=== PATIENT | female | born 1995 | race Caucasian/White ===

== ENCOUNTER 2023-12-13 12:27 | Outpatient (OUT) | payer OTHER, SELFPAY ==
--- NOTE | 2023-12-13 12:33 | US_ITS ---
[address] [address] Patient Name: YAKELIN MELGOZA MRN: [id number] date: 1995 Sex: F Assigned Patient Location: [facility] Current Patient Location: [facility] Accession/Order Number: [id number] Exam Date: 12/13/2023 12:33 Report Date: 12/13/2023 13:43 At the request of: MONICO WORRELL Procedure: US OB transvaginal EXAMINATION: US OB transvaginal HISTORY: MISSED MENSES COMPARISON: No relevant comparison available. FINDINGS: Transvaginal images Hill intrauterine gestation Gestational sac: 5.25 cm, 11 weeks 1 day CRL: 5.72 cm, 12 weeks 2 days Yolk sac: 4.3 mm Heart rate: 150 beats minute Cervix: Closed, 4.4 cm The uterus is normal, anteverted, anteflexed The right ovary is normal measuring 2.0 x 1.1 x 1.5 cm Left ovary is normal measuring 3.2 x 2.3 x 2.4 cm Clinical age: Unknown Ultrasound age: 12 weeks 2 days Ultrasound VANGIE: 06/24/2024 US/US OB transvaginal IMPRESSION: Viable hill intrauterine gestation measuring 12 weeks 2 days Electronically authenticated by: FRANKIE HENDRICKSON Date: 12/13/2023 13:43
== END 2023-12-13 12:28 | disposition home or self-care (01) ==
LOC: NOMS 12:28
PROVIDERS: Visit Provider Obstetrics & Gynecology
DX: Z34.91 Encounter for supervision of normal pregnancy, unspecified, first trimester (principal); N92.6 Irregular menstruation, unspecified; Z3A.12 12 weeks gestation of pregnancy
CPT/HCPCS: 76817

== ENCOUNTER 2023-12-26 08:46 | Outpatient (OUT) | payer OTHER, SELFPAY ==
[2023-12-26 09:23] LABS: Basophils Percent Auto 0.4 % (0.2-2.0); Eosinophils Absolute Auto 0.1 10^3/uL (0.0-0.7); Eosinophils Percent Auto 0.9 % (0.9-7.0); Hematocrit 33.5 % (36.0-48.0); Hemoglobin 11.6 g/dL (12.0-16.0); Immature Granulocytes Abs Auto 0.03 10^3/uL (0.00-0.03); Immature Granulocytes Pct Auto 0.4 % (0.0-0.5); Lymphocytes Absolute Auto 1.2 10^3/uL (1.2-3.8); Lymphocytes Percent Auto 14.6 % (20.5-60.0); Mean Corpuscular HGB Conc 34.6 g/dL (29.9-35.2); Mean Corpuscular Hemoglobin 30.9 pg (26.7-34.0); Mean Corpuscular Volume 89.3 fL (81.0-99.0); Mean Platelet Volume 10.5 fL (9.5-13.5); Monocytes Absolute Auto 0.5 10^3/uL (0.3-0.8); Monocytes Percent Auto 6.5 % (1.7-12.0); Neutrophils Absolute Auto 6.3 10^3/uL (1.4-6.5); Neutrophils Percent Auto 77.2 % (43.0-75.0); Platelet Count 197 10^3/uL (150-450); Red Blood Count 3.75 10^6/uL (4.20-5.40); Red Cell Distribution Width 13.4 % (11.0-15.0); White Blood Count 8.2 10^3/uL (4.0-11.0)
[2023-12-26 09:41] LABS: Estimated Average Glucose 82 mg/dL; Glycohemoglobin A1C 4.5 % (4.5-6.2)
[2023-12-27 06:09] LABS: HBsAg Screen Negative (Negative); HCV Ab Non Reactive (Non Reactive); HIV Ab/p24 Ag Screen Non Reactive (Non Reactive)
[2023-12-27 07:09] LABS: Rubella Antibodies, IgG <0.90 index (Immune >0.99)
[2023-12-27 13:08] LABS: Rapid Plasma Reagin, Quant Non Reactive titer (NonRea<1:1)
== END 2023-12-26 08:47 | disposition home or self-care (01) ==
LOC: LAB 08:49
PROVIDERS: Visit Provider Obstetrics & Gynecology
DX: Z34.90 Encounter for supervision of normal pregnancy, unspecified, unspecified trimester (principal); N92.6 Irregular menstruation, unspecified
CPT/HCPCS: 36415; 83036; 85025; 86592; 86762; 86803; 86850; 86900; 86901; 87086; 87340; 87389

== ENCOUNTER 2024-01-08 11:09 | Outpatient (OUT) | payer OTHER, SELFPAY ==
[2024-01-11 01:08] LABS: AFP Value 51.2 ng/mL (.); Gestat. Age Based On Ultrasound (.); Insulin Dep Diabetes No (.); Maternal Age At EDD 28.5 yr (.); OSBR Risk 1 IN 1944 (.); Results Report (.)
== END 2024-01-08 11:10 | disposition home or self-care (01) ==
LOC: LAB 11:11
PROVIDERS: Visit Provider Obstetrics & Gynecology
DX: Z34.92 Encounter for supervision of normal pregnancy, unspecified, second trimester (principal); Z36.1 Encounter for antenatal screening for raised alphafetoprotein level
CPT/HCPCS: 36415; 82105

== ENCOUNTER 2024-01-08 21:01 | Outpatient (REF) | payer OTHER, SELFPAY | END 2024-01-08 21:02 | disposition home or self-care (01) | LOC: LAB 21:01 | PROVIDERS: Visit Provider Obstetrics & Gynecology | DX: Z34.92 Encounter for supervision of normal pregnancy, unspecified, second trimester (principal); Z36.1 Encounter for antenatal screening for raised alphafetoprotein level; Z01.419 Encounter for gynecological examination (general) (routine) without abnormal findings | CPT/HCPCS: 36415; 82105; G0145 ==

== ENCOUNTER 2024-01-22 09:45 | Outpatient (OUT) | payer OTHER, SELFPAY ==
--- NOTE | 2024-01-22 09:48 | US_ITS ---
[address] [address] Patient Name: YAKELIN MELGOZA MRN: [id number] date: 1995 Sex: F Assigned Patient Location: US Current Patient Location: US Accession/Order Number: [id number] Exam Date: 01/22/2024 09:50 Report Date: 01/22/2024 10:58 At the request of: MONICO WORRELL Procedure: US OB cervical length EXAMINATION: US OB anatomy, US OB cervical length HISTORY: Screening For Anatomic Survey Z36.89 COMPARISON: Ultrasound OB transvaginal 12/13/2023 TECHNIQUE: Transabdominal sonographic examination was performed for obstetrical and evaluation. FINDINGS: Number: 1 Heart Rate: 142.1 bpm H.B. /min Amniotic Fluid Volume: Surgically normal Placental Location: ANTERIOR, grade 1, with lower margin 3.7 cm from os. 2.7 x 2.2 x 1.0 cm venous chandra, likely incidental. Cervix Length: 5.8 cm, closed. ANATOMY: Normal Structures -cerebellum, choroid plexus, cisterna magna, lateral cerebral ventricles, orbits, midline falx, hard palate, four-chamber heart, RVOT, LVOT, stomach, kidneys, bladder, umbilical cord insertion into abdomen, three-vessel cord, cervical spine, thoracic spine, lumbar spine, sacral spine, right upper extremity, left upper extremity, right lower extremity, left lower extremity. SUBOPTIMALLY SEEN: None ABNORMALITIES: None BIOMETRY: BPD: 3.7 cm 17 weeks 3 days ; 3% HC: 14.5 cm 17 weeks 5 days; < 3% AC: 12.5 cm 18 weeks 1 days; 19% FL: 2.6 cm 17 weeks 6 days ; 11% EFW:218.1 grams; 6% FL/AC: 20.8 FL/BPD: 69.7 HC/AC: 1.2 GESTATIONAL AGE: Age by EDC: 19 weeks 0 days VANGIE by EDC: 06/17/2024 Age by current US: 17 weeks 6 days VANGIE by current US: 06/25/2024 US/US OB cervical length IMPRESSION: 1. Single live intrauterine with growth detailed above. 2. Estimated weight is 6th percentile. Head circumference is < 3rd percentile. Electronically authenticated by: LEISA HERNANDEZ Date: 01/22/2024 10:58
--- NOTE | 2024-01-22 09:48 | US_ITS ---
[address] [address] Patient Name: YAKELIN MELGOZA MRN: [id number] date: 1995 Sex: F Assigned Patient Location: US Current Patient Location: US Accession/Order Number: [id number] Exam Date: 01/22/2024 09:50 Report Date: 01/22/2024 10:58 At the request of: MONICO WORRELL Procedure: US OB anatomy EXAMINATION: US OB anatomy, US OB cervical length HISTORY: Screening For Anatomic Survey Z36.89 COMPARISON: Ultrasound OB transvaginal 12/13/2023 TECHNIQUE: Transabdominal sonographic examination was performed for obstetrical and evaluation. FINDINGS: Number: 1 Heart Rate: 142.1 bpm H.B. /min Amniotic Fluid Volume: Surgically normal Placental Location: ANTERIOR, grade 1, with lower margin 3.7 cm from os. 2.7 x 2.2 x 1.0 cm venous chandra, likely incidental. Cervix Length: 5.8 cm, closed. ANATOMY: Normal Structures -cerebellum, choroid plexus, cisterna magna, lateral cerebral ventricles, orbits, midline falx, hard palate, four-chamber heart, RVOT, LVOT, stomach, kidneys, bladder, umbilical cord insertion into abdomen, three-vessel cord, cervical spine, thoracic spine, lumbar spine, sacral spine, right upper extremity, left upper extremity, right lower extremity, left lower extremity. SUBOPTIMALLY SEEN: None ABNORMALITIES: None BIOMETRY: BPD: 3.7 cm 17 weeks 3 days ; 3% HC: 14.5 cm 17 weeks 5 days; < 3% AC: 12.5 cm 18 weeks 1 days; 19% FL: 2.6 cm 17 weeks 6 days ; 11% EFW:218.1 grams; 6% FL/AC: 20.8 FL/BPD: 69.7 HC/AC: 1.2 GESTATIONAL AGE: Age by EDC: 19 weeks 0 days VANGIE by EDC: 06/17/2024 Age by current US: 17 weeks 6 days VANGIE by current US: 06/25/2024 US/US OB anatomy IMPRESSION: 1. Single live intrauterine with growth detailed above. 2. Estimated weight is 6th percentile. Head circumference is < 3rd percentile. Electronically authenticated by: LEISA HERNANDEZ Date: 01/22/2024 10:58
== END 2024-01-22 09:46 | disposition home or self-care (01) ==
LOC: US 09:45
PROVIDERS: Visit Provider Obstetrics & Gynecology
DX: Z36.89 Encounter for other specified antenatal screening (principal); Z3A.19 19 weeks gestation of pregnancy
CPT/HCPCS: 76805; 76817

== ENCOUNTER 2024-03-26 09:16 | Outpatient (OUT) | payer OTHER, SELFPAY ==
[2024-03-26 10:35] LABS: Basophils Percent Auto 0.3 % (0.2-2.0); Eosinophils Absolute Auto 0.1 10^3/uL (0.0-0.7); Eosinophils Percent Auto 0.9 % (0.9-7.0); Hemoglobin 10.1 g/dL (12.0-16.0); Immature Granulocytes Abs Auto 0.06 10^3/uL (0.00-0.03); Immature Granulocytes Pct Auto 0.6 % (0.0-0.5); Mean Corpuscular HGB Conc 33.7 g/dL (29.9-35.2); Mean Platelet Volume 10.3 fL (9.5-13.5); Monocytes Absolute Auto 0.6 10^3/uL (0.3-0.8); Monocytes Percent Auto 5.9 % (1.7-12.0); Neutrophils Absolute Auto 8.3 10^3/uL (1.4-6.5); Neutrophils Percent Auto 82.3 % (43.0-75.0); Platelet Count 168 10^3/uL (150-450); Red Blood Count 3.37 10^6/uL (4.20-5.40); Red Cell Distribution Width 12.8 % (11.0-15.0); White Blood Count 10.1 10^3/uL (4.0-11.0)
[2024-03-26 11:01] LABS: Glucose 1 Hour 122 mg/dL (<130)
== END 2024-03-26 09:17 | disposition home or self-care (01) ==
LOC: LAB 09:17
PROVIDERS: Visit Provider Obstetrics & Gynecology
DX: Z13.1 Encounter for screening for diabetes mellitus (principal)
CPT/HCPCS: 36415; 82950; 85025

== ENCOUNTER 2024-04-29 11:01 | Outpatient (OUT) | payer OTHER, SELFPAY ==
--- NOTE | 2024-04-29 11:03 | US_ITS ---
[address] [address] Patient Name: YAKELIN MELGOZA MRN: [id number] date: 1995 Sex: F Assigned Patient Location: [facility] Current Patient Location: [facility] Accession/Order Number: [id number] Exam Date: 04/29/2024 11:30 Report Date: 04/29/2024 12:45 At the request of: ANGELIC BALLARD Procedure: US OB growth EXAMINATION: US OB growth HISTORY: SIZE INCONSISTENT WITH DATES COMPARISON: No relevant comparison available. FINDINGS: Heart Rate: 135 bpm Amniotic Fluid Volume: 18.3 cm. Largest fluid pocket 6.5 cm Number: 1 Position: Cephalic presentation, longitudinal lie BIOMETRY: BPD: 8.28 cm; 33 weeks 2 days; 78.70 % HC: 30.75 cm; 34 weeks 2 days; 74.50 % AC: 29.08 cm; 33 weeks 1 day; 79 % FL: 6.40 cm; 33 weeks 0 days; 66.50 % EFW: 2159.86 g; 78.10 %, 4 lbs. 12 oz. FL/AC: 22.01 FL/BPD: 77.29 HC/AC: 1.06 GESTATIONAL AGE: Age by EDC: 32 weeks 0 days VANGIE by EDC: 2024-06-24 Age by US: 33 weeks 3 days VANGIE by US: 2024-06-14 US/US OB growth IMPRESSION: Normal interval growth Electronically authenticated by: FRANKIE HENDRICKSON Date: 04/29/2024 12:45
== END 2024-04-29 11:02 | disposition home or self-care (01) ==
LOC: NOMS 11:02
PROVIDERS: Visit Provider Physician Assistant
DX: O26.843 Uterine size-date discrepancy, third trimester (principal); Z3A.33 33 weeks gestation of pregnancy
CPT/HCPCS: 76816

== ENCOUNTER 2024-05-27 19:28 | Outpatient (REF) | payer OTHER, SELFPAY ==
--- OUTSIDE RECORDS SUMMARY | 2024-05-27 19:33 | XMS_ITS | CCD ---
Author Organization [facility] Care Team Providers Care Gluer Machine Setup Operator Name Role Phone Lobo Upton Unavailable UnavailRAMONA Singleton Admitting Unavailable RAMONA JIMÉNEZ Attending Unavailable RAMONA JIMÉNEZ Consulting Unavailable RAMONA JIMÉNEZ Admitting Unavailable RAMONA JIMÉNEZ Attending Unavailable REQUEST, NONE LISTED Primary Care Unavailable FRANKIE HENDRICKSON V Consulting Unavailable RAMONA JIMÉNEZ Consulting Unavailable RAMONA JIMÉNEZ Admitting Unavailable RAMONA JIMÉNEZ Attending Unavailable RAMONA JIMÉNEZ Consulting Unavailable RAMONA JIMÉNEZ Admitting Unavailable RAMONA JIMÉNEZ Attending Unavailable RAMONA JIMÉNEZ Consulting Unavailable RAMONA JIMÉNEZ Admitting Unavailable RAMONA JIMÉNEZ Attending Unavailable RAMONA JIMÉNEZ Consulting Unavailable RAMONA JIMÉNEZ Admitting Unavailable RAMONA JIMÉNEZ Attending Unavailable RAMONA JIMÉNEZ Primary Care Unavailable RAMONA JIMÉNEZ Consulting Unavailable LINDA CAICEDO Consulting Unavailable RAMONA JIMÉNEZ Admitting Unavailable RAMONA JIMÉNEZ Attending Unavailable RAMONA JIMÉNEZ Consulting Unavailable RAMONA JIMÉNEZ Admitting Unavailable RAMONA JIMÉNEZ Attending Unavailable RAMONA JIMÉNEZ Consulting Unavailable RAMONA JIMÉNEZ Admitting Unavailable RAMONA JIMÉNEZ Attending Unavailable RAMONA JIMÉNEZ Consulting Unavailable RAMONA JIMÉNEZ Admitting Unavailable RAMONA JIMÉNEZ Attending Unavailable RAMONA JIMÉNEZ Consulting Unavailable RAMONA JIMÉNEZ Admitting Unavailable RAMONA JIMÉNEZ Attending Unavailable RAMONA JIMÉNEZ Primary Care Unavailable RAMONA JIMÉNEZ Consulting Unavailable ROBINSON MICHELLE Consulting Unavailable RAMONA JIMÉNEZ Procedure Practitioner Unavailab le Cleemput EXTENSION SERVICE SPECIALIST IN CHARGE-TRUSS PULLER HELPER, Sarita Emmanuel Primary Care Jayy thorpe Cleemput EXTENSION SERVICE SPECIALIST IN CHARGE-TRUSS PULLER HELPER, Sarita Emmanuel Attending Jayy thorpe Cleemput EXTENSION SERVICE SPECIALIST IN CHARGE-TRUSS PULLER HELPER, Sarita Emmanuel Attending Jayy mariole Cleemput EXTENSION SERVICE SPECIALIST IN CHARGE-TRUSS PULLER HELPER, Sarita Emmanuel Primary Care Jayy thorpe Cleemput EXTENSION SERVICE SPECIALIST IN CHARGE-TRUSS PULLER HELPER, Sarita Emmanuel Referring Jayy Roach MD, Demetrice Portillo Attending Unavailable Cleemput EXTENSION SERVICE SPECIALIST IN CHARGE-TRUSS PULLER HELPER, Sarita Emmanuel Primary Care Unavai lable Cleemput EXTENSION SERVICE SPECIALIST IN CHARGE-TRUSS PULLER HELPER, Sarita Emmanuel Primary Care Unavai lable Cleemput EXTENSION SERVICE SPECIALIST IN CHARGE-TRUSS PULLER HELPER, Sarita Emmanuel Attending Unavai lable Cleemput EXTENSION SERVICE SPECIALIST IN CHARGE - PARASITOLOGIST, Sarita Costello Primary Care Provider SARITA BEDOYA Primary Care Unavailable CLEROBERT, SARITA Costello Referring Unavailable CLEEMPJOAQUINA, SARITA Costello Primary Care Unavailable GRISELDA CASTANON Attending Unavailable Cleemput EXTENSION SERVICE SPECIALIST IN CHARGE-TRUSS PULLER HELPER, Sarita Costello Primary Care Provider AURELIANO, SARITA Costello Referring Unavailable CLEROBERT, SARITA Costello Primary Care Unavailable GM, MONICO Attending Unavailable ELIO, SARITA Attending Unavailable GM, MONICO Attending Unavailable GM, MONICO Attending Unavailable ELIO, SARITA Attending Unavailable GM, MONICO Attending Unavailable ELIO, SARITA Attending Unavailable Allergies Allergy Classification Reported Allergen(s) Allergy Type Date of Onset Reaction(s) Facility (1 source) Adhesive agent Drug allergy (disorder) [facility] Repository (2 sources) Latex; Translations: [LATEX] Drug allergy (disorder) 3 [facility] Repository (1 source) morphine Drug Allergy [facility] Repository (1 source) Latex Drug allergy (disorder) 0 [facility] Repository (2 sources) Latex Propensity to adverse reactions to drug 3 [facility] (2 sources) Hydrocortisone; Translations: [HYDROCORTISONE] Drug Allergy 3 [facility] Medications Current Medications Medication Drug Class(es) Dates Sig (Normalized) Sig (Original) multivit-min/ferrous fumarate (MULTI VITAMIN ORAL) (1 source) take 1 tablet by mouth once daily multivit-min/ferrous fumarate (MULTI VITAMIN ORAL) Take 1 tablet by mouth daily. 0 Active ondansetron 4 mg disintegrating oral tablet (1 source) Serotonin-3 Receptor Antagonist Start: 04-16-2023 take 1 tablet by mouth three times daily as needed for nausea ondansetron (ZOFRAN-ODT) 4 MG disintegrating tablet Take 1 tablet by mouth 3 times daily as needed for Nausea or Vomiting 6 tablet 0 04/16/2023 Active vits62/FA/om3/dha/ep a ( GUMMY ORAL) (1 source) vits62/FA/om3/dha/ep a ( GUMMY ORAL) Take by mouth. 0 Active Completed/Discontinued Medications Medication Drug Class(es) Dates Sig (Normalized) Sig (Original) levonorgestrel 0.723136 mg/hr intrauterine system (1 source) Progestin, Progestin-containi ng Intrauterine Device End: 09-25-2023 levonorgestreL (MIRENA) 20 mcg/24 hours (8 yrs) 52 mg IUD 1 each by intrauterine route once. 0 09/25/2023 Discontinued (Therapy completed) Problems Active Problems Problem Classification Problem Date Documented Da te Episodic/Chronic Contraceptive and procreative management (3 sources) Patient encounter status; Translations: [Encounter for removal of intrauterine contraceptive device] Onset: 09-25-2023 09-25-2023 Episodic Immunizations and screening for infectious disease (4 sources) Encounter for screening for other viral diseases; Translations: [ENC SCREENING FOR OTH VIRAL DZ] Onset: 05-18-2020 Episodic Menstrual disorders (4 sources) Secondary amenorrhea; Translations: [SECONDARY AMENORRHEA] Onset: 11-21-2019 Chronic Noninfectious gastroenteritis (1 source) Noninfective gastroenteritis and colitis, unspecified; Translations: [Noninfective gastroenteritis and colitis, unspecified] Onset: 04-16-2023 Episodic Other complications of ; puerperium affecting management of mother (3 sources) Obesity complicating childbirth; Translations: [OBESITY COMPLICATING CHILDBIRTH] Onset: 05-25-2020 Chronic Other gastrointestinal disorders (2 sources) Diarrhea, unspecified; Translations: [Diarrhea, unspecified] Onset: 05-21-2023 Episodic Other nutritional; endocrine; and metabolic disorders (1 source) Obesity, unspecified; Translations: [OBESITY UNSPECIFIED] Onset: 06-02-2020 Chronic Other and delivery including normal (14 sources) Encounter for supervision of normal , unspecified, third trimester; Translations: [Encounter for supervision of normal , unspecified, unspecified trimester] Onset: 11-07-2019 Episodic Residual codes; unclassified (1 source) 39 weeks gestation of ; Translations: [39 WEEKS GESTATION OF ] Onset: 06-02-2020 Residual codes; unclassified (1 source) 36 weeks gestation of ; Translations: [36 WEEKS GESTATION OF ] Onset: 05-09-2020 Screening and history of mental health and substance abuse codes (1 source) Personal history of nicotine dependence; Translations: [PERSONAL HISTORY OF NICOTINE DEPEND] Onset: 06-02-2020 Episodic Umbilical cord complication (1 source) Labor and delivery complicated by cord around neck, without compression, not applicable or unspecified; Translations: [L AND D COMP CORD NECK NO COMPRS NA/UNS] Onset: 06-02-2020 Episodic Past or Other Problems Problem Classification Problem Date Documented Da te Episodic/Chronic Other infections; including parasitic (4 sources) Personal history of other infectious and parasitic diseases; Translations: [PERSONAL HX OTH INF AND PARASITIC DZ] Onset: 01-27-2020 Episodic Results Test Name Value Interpretation Reference Range Facility Ova+Parasit,Preservedon Ova+Parasit,Preserve d Specimen Description .FECES O+P Result Specimen sent in preservative. CONCENTRATE STAIN: NO OVA OR PARASITES SEEN PERMANENT STAIN: NO OVA OR PARASITES SEEN Report Status FINAL 05/22/2023 Normal [facility] Comment on above: Performed By: #### O PP #### [address] [id number] Package Collector: Mickey Benson MD [facility] [address] [place] [address] [place] [address] Package Collector: Frankie Sen MD [facility] Campylobacter sp PCR POSITIVE: Campylobacter spp. (jejuni or coli) DNA Detected Abnormal CAMNEG [facility] Comment on above: Result Comment: Resu lts reported to the appropriate Health Department Performed By: #### S TLPCR #### [address] [address] Package Collector: Mickey Benson MD [facility] [address] [place] [address] [place] [address] Package Collector: Frankie Sen MD #### CDIFQ #### [facility] [address] [place] [address] Package Collector: Frankie Sen MD E coli enterotox PCR NEGATIVE: No Enterotoxigenic E. coli (ETEC) Heat-labile and heat-stable (LT/ST) Normal EECNEG [facility] Comment on above: Result Comment: DNA Detected Performed By: #### S TLPCR #### [facility] [address] [place] [address] Package Collector: Mickey Benson MD [facility] [address] [place] [address] [place] [address] Package Collector: Frankie Sen MD #### CDIFQ #### [facility] [address] [place] [address] [place] [address] Package Collector: Frankie Sen MD Plesiomonas sp PCR Negative Normal PLENEG [facility] Comment on above: Performed By: #### S TLPCR #### [address] [address] Package Collector: Mickey Benson MD [facility] [address] [place] [address] [place] [address] Package Collector: Frankie Sen MD #### CDIFQ #### [facility] [address] [place] [address] [place] [address] Package Collector: Frankie Sen MD Salmonella sp PCR Negative Normal SALNEG [facility] Comment on above: Performed By: #### S TLPCR #### [address] [address] Package Collector: Mickey Benson MD [facility] [address] [place] [address] [place] [address] Package Collector: Frankie Sen MD #### CDIFQ #### [facility] [address] [place] [address] [place] [address] Package Collector: Frankie Sen MD Shigatoxin gene PCR Negative Normal STXNEG [facility] Comment on above: Performed By: #### S TLPCR #### [address] [address] Package Collector: Mickey Benson MD [facility] [address] [place] [address] [place] [address] Package Collector: Frankie Sen MD #### CDIFQ #### [facility] [address] [place] [address] Package Collector: Frankie Sen MD Shigella sp PCR Negative Normal SHINEG [facility] Comment on above: Performed By: #### S TLPCR #### [facility] [address] [place] [address] Package Collector: Mickey Benson MD [facility] [address] [place] [address] [place] [address] Package Collector: Frankie Sen MD #### CDIFQ #### [facility] [address] [place] [address] [place] [address] Package Collector: Frankie Sen MD Vibrio sp PCR NEGATIVE: No Vibrio (V. vulnificus, V, parahaemolyticus and V. cholerae) DNA Normal VIBNEG [facility] Comment on above: Result Comment: Dete cted Performed By: #### S TLPCR #### [facility] [address] [place] [address] Package Collector: Mickey Benson MD [facility] [address] [place] [address] [place] [address] Package Collector: Frankie Sen MD #### CDIFQ #### [facility] [address] [place] [address] [place] [address] Package Collector: Frankie Sen MD Yersinia gene PCR Negative Normal YERNEG [facility] Comment on above: Performed By: #### S TLPCR #### [facility] [address] [place] [address] Package Collector: Mickey Benson MD [facility] [address] [place] [address] [place], [place] [id number] Package Collector: Frankie Sen MD #### CDIFQ #### [facility] [address] [place], [place] [id number] Package Collector: Frankie Sen MD C diff Ag + Toxinon 05-21-20 23 C diff Ag + Toxin Negative Normal NEG [facility] Comment on above: Result Comment: No C . difficile antigen and Toxin Detected. Performed By: #### S TLPCR #### [address] [address] Package Collector: Mickey Benson MD [facility] [address] [place] [address] [place] [address] Package Collector: Frankie Sen MD #### CDIFQ #### [address] [place], [place] [id number] Package Collector: Frankie Sen MD Specimen Description .FECES Normal [facility] Comment on above: Performed By: #### S TLPCR #### [place] [id number] [place] [address] Package Collector: Mickey Benson MD [facility] [address] [place] [address] [place] [address] Package Collector: Frankie Sen MD #### CDIFQ #### [address] [place] [address] Package Collector: Frankie Sen MD Clostridium Difficile Toxin/ Antigenon 05-21-2023 C. difficile glutamate dehydrogenase and toxins A+B IA.rapid Ql (Stl) Negative NEGATIVE [facility] Comment on above: No C. difficile anti gen and Toxin Detected. Specimen Description .FECES [facility] CBC with Diffon 04-16-2023 Abs. Basophil 0.03 k/uL Normal 0.00-0.20 [facility] Comment on above: Performed By: #### L IP, CP, HCG, CDP #### [facility] [address] [place] [address] Dr. [place], [place] [id number] Package Collector: Frankie Sen MD Abs. Eosinophil <0.03 Normal 0.00-0.44 [facility] Comment on above: Performed By: #### L IP, CP, HCG, CDP #### [facility] [address] [place] [address] Dr[address] [place], [place] [address]83 Package Collector: Frankie Sen MD Abs.Imm.Granulocyte <0.03 Normal 0.00-0.30 [facility] Comment on above: Performed By: #### L IP, CP, HCG, CDP #### [facility] [address] [place] [address] Dr. [place], [place] 0648383 Package Collector: Frankie Sen MD Abs.Neutrophil (Seg) 5.50 k/uL Normal 1.50-8.10 [facility] Comment on above: Performed By: #### L IP, CP, HCG, CDP #### [address] [place], [place] 1105783 Package Collector: Frankie Sen MD Basophils/100 WBC (Bld) 0 % Normal 0-2 [facility] Comment on above: Performed By: #### L IP, CP, HCG, CDP #### [address] [place], [place] 500[address]283 Package Collector: Frankie Sen MD Eosinophils/100 WBC (Bld) 0 % Low 1-4 [facility] Comment on above: Performed By: #### L IP, CP, HCG, CDP #### [facility] [address] [place] [address] Dr[place], [place] [phone] Package Collector: Frankie Sen MD Erythrocyte distribution width (RBC) [Ratio] 12.7 % Normal 11.8-14.4 [facility] Comment on above: Performed By: #### L IP, CP, HCG, CDP #### [address] [place], [place] [id number] Package Collector: Frankie Sen MD Hematocrit (Bld) [Volume fraction] 39.9 % Normal 36.3-47.1 [facility] Comment on above: Performed By: #### L IP, CP, HCG, CDP #### [address] [place], [facility] Package Collector: Frankie Sen MD Hemoglobin (Bld) [Mass/Vol] 14.0 g/dL Normal 11.9-15.1 [facility] Comment on above: Performed By: #### L IP, CP, HCG, CDP #### [address] [place], [facility] Package Collector: Frankie Sen MD Immature granulocytes/100 WBC (Bld) 0 % Normal 0 [facility] Comment on above: Performed By: #### L IP, CP, HCG, CDP #### [address] [place], [facility] Package Collector: Frankie Sen MD Lymphocytes (Bld) [#/Vol] 0.68 10*3/uL Low 1.10-3.70 [facility] Comment on above: Performed By: #### L IP, CP, HCG, CDP #### [address] [place], [facility] Package Collector: Frankie Sen MD Lymphocytes/100 WBC (Bld) 10 % Low 24-43 [facility] Comment on above: Performed By: #### L IP, CP, HCG, CDP #### [address] [place], [facility] Package Collector: Frankie Sen MD MCH (RBC) [Entitic mass] 31.0 pg Normal 25.2-33.5 [facility] Comment on above: Performed By: #### L IP, CP, HCG, CDP #### [address] [place], [facility] Package Collector: Frankie Sen MD MCHC (RBC) [Mass/Vol] 35.1 g/dL High 28.4-34.8 [facility] Comment on above: Performed By: #### L IP, CP, HCG, CDP #### [facility] [address] [place], [facility] Package Collector: Frankie Sen MD MCV (RBC) [Entitic vol] 88.3 fL Normal 82.6-102.9 [facility] Comment on above: Performed By: #### L IP, CP, HCG, CDP #### [address] [place], [facility] Package Collector: Frankie Sen MD Monocytes (Bld) [#/Vol] 0.69 10*3/uL Normal 0.10-1.20 [facility] Comment on above: Performed By: #### L IP, CP, HCG, CDP #### [address] [place], [place] [address] Package Collector: Frankie Sen MD Monocytes/100 WBC (Bld) 10 % Normal 3-12 [facility] Comment on above: Performed By: #### L IP, CP, HCG, CDP #### [address] [place], [facility] Package Collector: Frankie Sen MD Neutrophil (Seg) 80 % High 36-65 [facility] Comment on above: Performed By: #### L IP, CP, HCG, CDP #### [address] [place], [facility] Package Collector: Frankie Sen MD NRBC Automated 0.0 per 100 WBC Normal 0.0 [facility] Comment on above: Performed By: #### L IP, CP, HCG, CDP #### [facility] [address] [place], [place] [address] Package Collector: Frankie Sen MD Platelet mean volume (Bld) [Entitic vol] 10.3 fL Normal 8.1-13.5 [facility] Comment on above: Performed By: #### L IP, CP, HCG, CDP #### [facility] [address] [place], [place] [id number] Package Collector: Frankie Sen MD Platelets (Bld) [#/Vol] 159 10*3/uL Normal 138-453 [facility] Comment on above: Performed By: #### L IP, CP, HCG, CDP #### [facility] [address] [place], [place] [id number] Package Collector: Frankie Sen MD RBC (Bld) [#/Vol] 4.52 10*6/uL Normal 3.95-5.11 [facility] Comment on above: Performed By: #### L IP, CP, HCG, CDP #### [address] [place], [place] [id number] Package Collector: Frankie Sen MD WBC (Bld) [#/Vol] 6.9 10*3/uL Normal 3.5-11.3 [facility] Comment on above: Performed By: #### L IP, CP, HCG, CDP #### [address] [place] [address] Package Collector: Frankie Sen MD CT ABDOMEN PELVIS W IV CONTR Ryan 04-16-2023 CT ABDOMEN PELVIS W IV CONTRAST EXAMINATION: CT OF THE ABDOMEN AND PELVIS WITH CONTRAST 04/16/2023 11:04 am TECHNIQUE: CT of the abdomen and pelvis was performed with the administration of intravenous contrast. Multiplanar reformatted images are provided for review. Automated exposure control, iterative reconstruction, and/or weight based adjustment of the mA/kV was utilized to reduce the radiation dose to as low as reasonably achievable. COMPARISON: None. HISTORY: ORDERING SYSTEM PROVIDED HISTORY: lower abdominal pain. 4 days of diarrhea TECHNOLOGIST PROVIDED HISTORY: lower abdominal pain. 4 days of diarrhea Decision Support Exception - unselect if not a suspected or confirmed emergency medical condition->Emergency Medical Condition (MA) FINDINGS: Lower Chest: Lung bases are clear. Liver: Homogeneous attenuation without focal mass or intrahepatic bile duct dilatation Spleen: Unremarkable Adrenal glands: Unremarkable. Pancreas: Homogenous enhancement without focal mass or ductal dilatation Gallbladder/Biliary tree: No radio-opaque gallstones, GB wall thickening or pericholecystic fluid identified. No bile duct dilatation Kidneys: No suspicious mass, calculus or hydronephrosis. Symmetric enhancement is noted. Aorta: Normal caliber. Normal enhancement. Appendix: Unremarkable. GI/Bowel: There is suggestion of wall thickening in the ascending and transverse colon. This may also be present to lesser extent in the descending colon. Findings suggest colitis. Correlate clinically. No bowel loop distention identified. Peritoneum/Retroperit oneum: No ascites or pathologic adenopathy is noted. Pelvis: Urinary bladder is unremarkable in appearance. No pelvic adenopathy or mass identified. An IUD is present in the uterus. Bones/Soft Tissues: Unremarkable. IMPRESSION: Findings suggestive of colitis. Correlate clinically. Interpreted by: Ag Sin MD Signed by: Ag Sin MD 04/16/23 Final result Normal [facility] Comp Metabolic Profon 2022 Albumin [Mass/Vol] 4.4 g/dL Normal 3.5-5.2 [facility] Comment on above: Performed By: #### L IP, CP, HCG, CDP #### [facility] [address] [place] [address] [place] [address] Package Collector: Frankie Sen MD Albumin/Glob Ratio 1.5 Normal 1.0-2.5 [facility] Comment on above: Performed By: #### L IP, CP, HCG, CDP #### [facility] [address] [place] [address] [place] [address] Package Collector: Frankie Sen MD Alkaline Phos 56 U/L Normal 35-104 [facility] Comment on above: Performed By: #### L IP, CP, HCG, CDP #### [address] [place] [address] Package Collector: Frankie Sne MD ALT [Catalytic activity/Vol] 8 U/L Normal 5-33 [facility] Comment on above: Performed By: #### L IP, CP, HCG, CDP #### [facility] [address] [place], [place] [id number] Package Collector: Frankie Sen MD Anion gap [Moles/Vol] 12 mmol/L Normal 9-17 [facility] Comment on above: Performed By: #### L IP, CP, HCG, CDP #### [facility] [address] [place], [place] [id number] Package Collector: Frankie Sen MD AST [Catalytic activity/Vol] 15 U/L Normal <32 [facility] Comment on above: Performed By: #### L IP, CP, HCG, CDP #### [facility] [address] [place], [place] 6956283 Package Collector: Frankie Sen MD Bilirubin [Mass/Vol] 1.4 mg/dL High 0.3-1.2 [facility] Comment on above: Performed By: #### L IP, CP, HCG, CDP #### [facility] [address] [place], [place] [id number] Package Collector: Frankie Sen MD BUN/CRE Ratio 9 Normal 9-20 [facility] Comment on above: Performed By: #### L IP, CP, HCG, CDP #### [facility] [address] [place], [place] 4395183 Package Collector: Frankie Sen MD Calcium [Mass/Vol] 8.9 mg/dL Normal 8.6-10.4 [facility] Comment on above: Performed By: #### L IP, CP, HCG, CDP #### [facility] [address] [place], [place] [id number] Package Collector: Frankie Sen MD Chloride [Moles/Vol] 103 mmol/L Normal 98-107 [facility] Comment on above: Performed By: #### L IP, CP, HCG, CDP #### [facility] Lab [address] [place], [place] [id number] Package Collector: Frankie Sen MD CO2 [Moles/Vol] 24 mmol/L Normal 20-31 [facility] Comment on above: Performed By: #### L IP, CP, HCG, CDP #### [facility] [address] [place] [address] Package Collector: Frankie Sen MD Creatinine [Mass/Vol] 0.7 mg/dL Normal 0.5-0.9 [facility] Comment on above: Performed By: #### L IP, CP, HCG, CDP #### [facility] [address] [place] [address] Package Collector: Frankie Sen MD GFR/1.73 sq M.predicted among non-blacks MDRD (S/P/Bld) [Vol rate/Area] mL/min/{1.73_m2} Normal >60 [facility] Comment on above: Result Comment: These results are not intended for use in patients <18 years of age. eGFR results are calculated without a race factor using the 2020 CKD-EPI equation. Careful clinical correlation is recommended, particularly when comparing to results calculated using previous equations. The CKD-EPI equation is less accurate in patients with extremes of muscle mass, extra-renal metabolism of creatine, excessive creatine ingestion, or following therapy that affects renal tubular secretion. Performed By: #### L IP, CP, HCG, CDP #### [address] [place] [address] Package Collector: Frankie Sen MD Glucose [Mass/Vol] 100 mg/dL High 70-99 [facility] Comment on above: Performed By: #### L IP, CP, HCG, CDP #### [facility] [address] [place] [address] Package Collector: Frankie Sen MD Potassium [Moles/Vol] 3.7 mmol/L Normal 3.7-5.3 [facility] Comment on above: Performed By: #### L IP, CP, HCG, CDP #### [facility] [address] [place] [address] Package Collector: Frankie Sen MD Protein [Mass/Vol] 7.3 g/dL Normal 6.4-8.3 [facility] Comment on above: Performed By: #### L IP, CP, HCG, CDP #### [facility] [address] [place] [address] Package Collector: Frankie Sen MD Sodium [Moles/Vol] 139 mmol/L Normal 135-144 [facility] Comment on above: Performed By: #### L IP, CP, HCG, CDP #### [facility] [address] [place] [address] Package Collector: Franike Sen MD Urea nitrogen [Mass/Vol] 6 mg/dL Normal 6-20 [facility] Comment on above: Performed By: #### L IP, CP, HCG, CDP #### [facility] [address] [place] [address] Package Collector: Frankie Sen MD HCG Screen, Bloodon 04-16-20 23 HCG Screen, Blood Negative Normal NEG [facility] Comment on above: Result Comment: Spec imens with hCG levels near the threshold of the test (25 mIU/mL) may give a negative or indeterminate result. In such cases, another test should be performed with a new specimen in 48-72 hours. If early is suspected clinically in this setting, correlation with quantitative serum b-hCG level is suggested. [facility] has confirmed the use of plasma for this test. This has not been cleared or approved by the U.S. Food and Drug Administration. The FDA has determined that such clearance is not necessary. Performed By: #### L IP, CP, HCG, CDP #### [facility] [address] [place] [address] Package Collector: Frankie Sen MD Lipaseon 04-16-2023 Lipase [Catalytic activity/Vol] 26 U/L Normal 13-60 [facility] Comment on above: Performed By: #### L IP, CP, HCG, CDP #### [facility] [address] [place], [place] [id number] Package Collector: Frankie Sen MD UA w/Reflex Cultureon 2022 Bilirubin, SemiQt,Ur SMALL Abnormal NEG [facility] Comment on above: Performed By: #### U AX, UMICAO #### [facility] [address] [place], [place] [address] Package Collector: Frankie Sen MD Blood, Urine 3+ Abnormal NEG [facility] Comment on above: Performed By: #### U AX, UMICAO #### [address] [place], [place] [id number] Package Collector: Frankie Sen MD Clarity (U) Cloudy Abnormal CLEAR [facility] Comment on above: Performed By: #### U AX, UMICAO #### [address] [place], [place] [id number] Package Collector: Frankie Sen MD Color (U) Yellow Normal YEL [facility] Comment on above: Performed By: #### U AX, UMICAO #### [address] [place], [place] [id number] Package Collector: Frankie Sen MD Glucose Ql (U) Negative Normal NEG [facility] Comment on above: Performed By: #### U AX, UMICAO #### [facility] [address] [place] [address] Dr. [place], [place] [id number] Package Collector: Frankie Sen MD Ketones Ql (U) 1+ mg/dL Abnormal NEG [facility] Comment on above: Performed By: #### U AX, UMICAO #### [address] [place], [place] [id number] Package Collector: Frankie Sen MD Leukocyte esterase Test strip Ql (U) Negative Normal NEG [facility] Comment on above: Performed By: #### U AX, UMICAO #### [facility] [address] [place], [place] [id number] Package Collector: Frankie Sen MD Nitrite,Ur Negative Normal NEG [facility] Comment on above: Performed By: #### U AX, UMICAO #### [facility] [address] [place], [place] [id number] Package Collector: Frankie Sen MD PH,Ur 6.0 Normal 5.0-9.0 [facility] Comment on above: Performed By: #### U AX, UMICAO #### [address] [place] [address] Package Collector: Frankie Sen MD Protein Ql (U) 1+ mg/dL Abnormal NEG [facility] Comment on above: Performed By: #### U AX, UMICAO #### [facility] [address] [place] [address] [place] [address] Package Collector: Frankie Sen MD Spec. [place],Ur 1.025 High 1.010-1.020 [facility] Comment on above: Performed By: #### U AX, UMICAO #### [address] [place] [address] Package Collector: Frankie Sen MD Urobilinogen,Ur Normal Normal 0.0-1.0 [facility] Comment on above: Performed By: #### U AX, UMICAO #### [facility] [address] [place] [address] Package Collector: Frankie Sen MD Urinalysis,Microon 3 Bacteria 2+ Abnormal NONE [facility] Comment on above: Performed By: #### U AX, UMICAO #### [facility] [address] [place], [place] [id number] Package Collector: Frankie Sen MD Epithelial cells LM Ql (Urine sed) 10 TO 20 Normal 0-25 [facility] Comment on above: Performed By: #### U AX, UMICAO #### [facility] [address] [place], [place] [id number] Package Collector: Frankie Sen MD Mucus Strands 1+ Abnormal NONE [facility] Comment on above: Performed By: #### U AX, UMICAO #### [facility] [address] [place], [place] [id number] Package Collector: Frankie Sen MD Other Observations MICROSCOPIC PERFORME D ON UNSPUN URINE Abnormal NREQ [facility] Comment on above: Performed By: #### U AX, UMICAO #### [facility] [address] [place], [place] [id number] Package Collector: Frankie Sen MD Urine RBC's 2 TO 5 Normal 0-2 [facility] Comment on above: Performed By: #### U AX, UMICAO #### [facility] [address] [place], [place] [id number] Package Collector: Frankie Sen MD Urine WBC's 2 TO 5 Normal 0-5 [facility] Comment on above: Performed By: #### U AX, UMICAO #### [facility] [address] 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 [employer]IST[employer] Review of Systems General Adult ROS Fatigue: No Appetite change: No Weakness: No Cardiovascular Palpitations: No Syncope: No EENMT Nasal congestion: No Nasal discharge: No Gastrointestinal Diarrhea: No Nausea: No Vomiting: No Genitourinary Decreased urine output: No Hematologic/Lymphatic Musculoskeletal Neurological Headache: Yes Psychiatric Anxiety: No Depression: No Respiratory Cough: No Shortness_of_breath: No Wheezing: No Physical Exam Vitals & Measurements HR: 80 (Peripheral) BP: 106/74 SpO2: 97 HT: 157 cm WT: 78.2 kg WT: 78.2 kg (Dosing) BMI: 31.73 General: Alert and oriented, well nourished, no acute distress. Lungs: Clear to auscultation, non-labored respiration Heart: Normal rate, regular rhythm, no murmur, gallop or edema Abdomen: Soft, non-tender, non-distended, normal bowel sounds, no masses. psych: Mental status, appearance, behavior, speech appropriate. Alert and oriented to person place and time. Thought coherent. Gait normal, able to ambulate without assistance Skin: no lesions, rashes or open areas Additional Vitals BP Position/Location: Sitting, Left arm Assessment/Plan 1. Wellness examination labs last year reviewed with patient she has no concerns she has IUD- gave [employer]IST[employer] info Ordered: EKG 2. Migraines try imitrex if EKG is normal f/u in 1 month EKG normal Ordered: EKG Orders: SUMAtriptan, 1 tabs, Oral, Daily, PRN, may repeat dose after 2 hours up to a maximum of 200 mg in 24 hours, X 30 days, # 9 tabs, 0 Refill(s), 04/07/23 9:10:00 EDT, Pharmacy: [facility] [id number] Medical Decision Making Chronic conditions NOT treated during this visit that affected my overall medical decision making: [] Treatment plans discussed but not opted for at this time: [] Prescribed medication that requires intensive monitoring for toxicity: [] I have reviewed the patient?s medication list for medication interactions/contrain dications and/or for upcoming procedures: [yes or no] yes Time Spent with the Patient I have personally spent [] minutes on this date, directly related to today's patient visit, including pre and post visit work, for this date of service. Time listed does not include time spent on separately billable services. Problem List/Past Medical History Ongoing No qualifying data Historical No qualifying data Medications Imitrex 25 mg oral tablet, 25 mg= 1 tabs, Oral, Daily, PRN Allergies No active allergies Social History Tobacco Former smoker, quit more than 5 years ago Use:. Electronically signed by Aureliano LEPESarita 03/08/23 11:43 EDT Normal [facility] CBC AUTO DIFFon 05-25-2020 Basophils (Bld) [#/Vol] 0.0 103/ul Normal 0.0-0.1 [facility] Comment on above: Performed By: #### C BC ####[facility] [address] [place], [place] [address]Yejiau [place] Basophils/100 WBC (Bld) 0.3 % Normal 0.2-2.0 [facility] Comment on above: Performed By: #### C BC ####[facility] [address] [place], [place] [address]Gerken [place] Eosinophils (Bld) [#/Vol] 0.1 103/ul Normal 0.0-0.7 [facility] Comment on above: Performed By: #### C BC ####[facility] [address] [place], [place] [address]Gerken [place] Eosinophils/100 WBC (Bld) 1.2 % Normal 0.9-7.0 [facility] Comment on above: Performed By: #### C BC ####[facility] [address] [place], [place] [address]Gerken [place] Erythrocyte distribution width (RBC) [Ratio] 14.1 % Normal 11.0-15.0 [facility] Comment on above: Performed By: #### C BC ####[facility] [address] [place], [place] [address]Gerken [place] Hematocrit (Bld) [Volume fraction] 32.9 % Critically low 36.0-48.0 [facility] Comment on above: Performed By: #### C BC ####[facility] Ty[address]uphab[address] [place], [place] [address]ken [place] Hemoglobin (Bld) [Mass/Vol] 11.2 g/dL Critically low 12.0-16.0 [facility] Comment on above: Performed By: #### C BC ####[facility] Ejyinyikmw[address]19 [address] [place] IG # 0.09 10e3/ul Critically high 0.00-0.03 [facility] Comment on above: Performed By: #### C BC ####[facility] Bcdzotiubj3135 [address] [place] IG % 0.9 % Critically high 0.0-0.5 [facility] Comment on above: Performed By: #### C BC ####[facility] Miinlyffnv5841 [address] [place] Lymphocytes (Bld) [#/Vol] 1.3 103/ul Normal 1.2-3.8 [facility] [place] [facility] Comment on above: Performed By: #### C BC ####[facility] [address] [place] [address] [place] Lymphocytes/100 WBC (Bld) 13.1 % Critically low 20.5-60.0 [facility] Comment on above: Performed By: #### C BC ####[facility] [address] [place] [address] [place] MANUAL DIFF REQ NO Normal [facility] Comment on above: Performed By: #### C BC ####[facility] Wiuyayoxqv9340 [address] [place] MCH (RBC) [Entitic mass] 29.6 pg Normal 26.7-34.0 [facility] Comment on above: Performed By: #### C BC ####[facility] Ryaembbgck7485 [address] [place] MCHC (RBC) [Mass/Vol] 34.0 g/dL Normal 29.9-35.2 [facility] [place] [facility] Comment on above: Performed By: #### C BC ####[facility] Bzknjrhhqq8504 [address] [place] MCV (RBC) [Entitic vol] 87.0 fL Normal 81.0-99.0 [facility] Comment on above: Performed By: #### C BC ####[facility] [address] [place], [place] [address]Biorxf [place] Monocytes (Bld) [#/Vol] 0.9 103/ul Critically high 0.3-0.8 [facility] Comment on above: Performed By: #### C BC ####[facility] [address] [place], [place] [address]Gerken [place] Monocytes/100 WBC (Bld) 9.1 % Normal 1.7-12.0 [facility] Comment on above: Performed By: #### C BC ####[facility] [address] [place] [address]Xwdgqe [place] Neutrophils (Bld) [#/Vol] 7.6 103/ul Critically high 1.4-6.5 [facility] Comment on above: Performed By: #### C BC ####[facility] [address] [place], [place] [address]Gerken [place] Neutrophils/100 WBC (Bld) 75.4 % Critically high 43.0-75.0 [facility] Comment on above: Performed By: #### C BC ####[facility] Y[address] [place] [address]Uuatee [place] Platelet mean volume (Bld) [Entitic vol] 10.1 fL Normal 9.5-13.5 [facility] Comment on above: Performed By: #### C BC ####[facility] [address] [place] [address]Dsjqiy [place] Platelets (Bld) [#/Vol] 200 103/ul Normal 150-450 [facility] [place] [facility] Comment on above: Performed By: #### C BC ####[facility] [address] [place] [address]Qlaczb [place] RBC (Bld) [#/Vol] 3.78 106/ul Critically low 4.20-5.40 [facility] Comment on above: Performed By: #### C BC ####[facility] [address] [place] [address] [place] WBC (Bld) [#/Vol] 10.1 103/ul Normal 4.0-11.0 [facility] Comment on above: Performed By: #### C BC ####[facility] [address] [place] [address] DRUG SCREEN RAPID (URINE)on 05-25-2020 AMP Negative Normal NEGATIVE [facility] Comment on above: Performed By: #### D RUGRPD ####[facility] [address] [place] [address] BAR Negative Normal NEGATIVE [facility] Comment on above: Performed By: #### D RUGRPD ####[facility] N[address] [place] [address] BUP Negative Normal NEGATIVE [facility] Comment on above: Performed By: #### D RUGRPD ####[facility] [address] [place] [address] BZO Negative Normal NEGATIVE [facility] Comment on above: Performed By: #### D RUGRPD ####[facility] [address] [place] [address] JAYLA Negative Normal NEGATIVE [facility] Comment on above: Performed By: #### D RUGRPD ####[facility] [address] [place] [address] CUT-OFFS SEE BELOW Normal [facility] [place] [facility] Comment on above: Result Comment: AMP (Amphetamine): 500ng/mL, BAR (Barbituates): 200 ng/mL, BZO (Benzodiazepines): 150 ng/mL, BUP (Buprenorphine): 10 ng/mL, JAYLA (Cocaine): 150 ng/mL, mAMP (Methamphetamine): 500 ng/mL, MTD (Methadone): 200 ng/mL, OPI (Opiates): 100 ng/mL or 2000 ng/mL, OXY (Oxycodone): 100 ng/mL, PCP (Phencyclidine): 25 ng/mL, PPX (Propoxyphene): 300 ng/mL, THC (Cannabinoids): 50 ng/mL, TCA (Trycyclic Antidepressants): 300 ng/mL Performed By: #### D RUGRPD ####[facility] Xqtnzfpmar3790 [address] [place] DRUG CUT HEADER DRUG CLASS TEST SYSTEM CUT-OFF CONCENTRATIONS ARE FOLLOWS: Normal [facility] Comment on above: Performed By: #### D RUGRPD ####[facility] Mqagehefjf4022 [address] [place] mAMP Negative Normal NEGATIVE [facility] Comment on above: Performed By: #### Roque RUGRPD ####[facility] Kaolhrtbeg8503 [address] [place] MTD Negative Normal NEGATIVE [facility] Comment on above: Performed By: #### Roque RUGRPD ####[facility] [address] [place] [address] [place] OPI Negative Normal NEGATIVE [facility] Comment on above: Performed By: #### Roque RUGRPD ####[facility] Jurohssswa[address] [place] OXY Negative Normal NEGATIVE [facility] Comment on above: Performed By: #### Roque RUGRPD ####[facility] Dftfgsadas2715 [address] [place] PCP Negative Normal NEGATIVE [facility] Comment on above: Performed By: #### Roque RUGRPD ####[facility] Lvzorawtrt11[address] [place] PPX Negative Normal NEGATIVE [facility] Comment on above: Performed By: #### Roque RUGRPD ####[facility] Hqqjfcdnem9263 [address] [place] TCA Negative Normal NEGATIVE [facility] Comment on above: Performed By: #### D RUGRPD ####[facility] Vkzgqmbhkj8641 [address] [place] THC Negative Normal NEGATIVE [facility] Comment on above: Performed By: #### Roque RUGRPD ####[facility] Ddnwjaohrt0891 [address] [place] TYPE AND SCREENon 05-25-2020 TYPE AND SCREEN Negative Normal [facility] Comment on above: Performed By: #### T NS ####[facility] [address] [place] [address] [place] COVID-19 PCRon 05-20-2020 SARS-CoV-2, EMILE Not Detected Normal Not Detected [facility] Comment on above: Result Comment: This nucleic acid amplification test was developed and its perfomance characteristics determined by [facility]. Nucleic acid amplification tests include PCR and TMA. This test has not been FDA cleared or approved. This test has been authorized by FDA under an Emergency Use Authorization (EUA). This test is only authorized for the duration of time the declaration that circumstances exist justifying the authorization of the emergency use of in vitro diagnostic tests for detection of SARS-CoV-2 virus and/or diagnosis of COVID-19 infection under section 564(b)(1) of the Act, 21 U.S.C. 360bbb-3(b) (1), unless the authorization is terminated or revoked sooner. When diagnostic testing is negative, the possibility of a false negative result should be considered in the context of a patient's recent exposures and the presence of clinical signs and symptoms consistent with COVID-19. An individual without symptoms of COVID-19 and who is not shedding SARS-CoV-2 virus would expect to have a negative (not detected) result in this assay. Performed By: #### C VDPCR ####[facility] Zuaeozarus[address] CHLAMYDIA/GONOCOCCUS EMILE (SW AB/URINE/PAPon 05-06-2020 Chlamydia trachomatis, EMILE Negative Normal Negative [facility] Comment on above: Performed By: #### C T/NGNA ####[facility] Wgxtobwtok033[address] Neisseria gonorrhoeae, EMILE Negative Normal Negative [facility] Comment on above: Performed By: #### C T/NGNA ####[facility] Pfvehbiagh9313 [address] GROUP B STREP CULTUREon 04-17 S. agalactiae Ag Ql (Unsp spec) Culture Observations: Negative for Group B Streptococcus Normal [facility] Comment on above: Performed By: #### G BSCX ####[facility] [address]se[address] [place], [place] [address]Gerken [place] CBC AUTO DIFFon 03-04-2020 Basophils (Bld) [#/Vol] 0.0 103/ul Normal 0.0-0.1 [facility] Comment on above: Performed By: #### C BC ####[facility] [address] [place], [place] [address]Gerken [place] Basophils/100 WBC (Bld) 0.4 % Normal 0.2-2.0 [facility] Comment on above: Performed By: #### C BC ####[facility] J[address]ps[address] [place], [place] [address]Gerken [place] Eosinophils (Bld) [#/Vol] 0.1 103/ul Normal 0.0-0.7 [facility] Comment on above: Performed By: #### C BC ####[facility] [address] [place], [place] [address]Gerken [place] Eosinophils/100 WBC (Bld) 1.0 % Normal 0.9-7.0 [facility] Comment on above: Performed By: #### C BC ####[facility] [address] [place], [place] [address]Gerken [place] Erythrocyte distribution width (RBC) [Ratio] 13.1 % Normal 11.0-15.0 [facility] Comment on above: Performed By: #### C BC ####[facility] [address] [place], [place] [address]Gerken [place] Hematocrit (Bld) [Volume fraction] 34.5 % Critically low 36.0-48.0 [facility] Comment on above: Performed By: #### C BC ####[facility] S[address] [place], [place] [address]Gerken [place] Hemoglobin (Bld) [Mass/Vol] 11.6 g/dL Critically low 12.0-16.0 [facility] Comment on above: Performed By: #### C BC ####[facility] [address] [place], [place] [address]Qvodda [place] IG # 0.09 10e3/ul Critically high 0.00-0.03 [facility] Comment on above: Performed By: #### C BC ####[facility] [address]ew[address] [place], [place] [address]Gbpzoq [place] IG % 0.9 % Critically high 0.0-0.5 [facility] Comment on above: Performed By: #### C BC ####[facility] Zdlbusuenf0904 [place], [place] [address]Jdjszp [place] Lymphocytes (Bld) [#/Vol] 1.2 103/ul Normal 1.2-3.8 [facility] Comment on above: Performed By: #### C BC ####[facility] [address] [place] [address]Ogggth [place] Lymphocytes/100 WBC (Bld) 12.1 % Critically low 20.5-60.0 [facility] Comment on above: Performed By: #### C BC ####[facility] [address] [place], [place] [address]Loqwqa [place] MANUAL DIFF REQ NO Normal [facility] Comment on above: Performed By: #### C BC ####[facility] [address]45[address] [place], [place] [address]Fumlyd [place] MCH (RBC) [Entitic mass] 30.7 pg Normal 26.7-34.0 [facility] Comment on above: Performed By: #### C BC ####[facility] [address] [place] [address] [id number] Erendira MCHC (RBC) [Mass/Vol] 33.6 g/dL Normal 29.9-35.2 [facility] Comment on above: Performed By: #### C BC ####[facility] [address] [place] [id number] Erendira MCV (RBC) [Entitic vol] 91.3 fL Normal 81.0-99.0 [facility] Comment on above: Performed By: #### C BC ####[facility] [address] [place], [place] [address]Vinoxc Erendira Monocytes (Bld) [#/Vol] 0.7 103/ul Normal 0.3-0.8 [facility] Comment on above: Performed By: #### C BC ####[facility] F[address] [place], [place] [address]Jjchbb Erendira Monocytes/100 WBC (Bld) 6.8 % Normal 1.7-12.0 [facility] Comment on above: Performed By: #### C BC ####[facility] [address] [place] [address] 38608Zbmciq Erendira Neutrophils (Bld) [#/Vol] 7.8 103/ul Critically high 1.4-6.5 [facility] Comment on above: Performed By: #### C BC ####[facility] [address] [place] [address] 01895Rbwjxm Erendira Neutrophils/100 WBC (Bld) 78.8 % Critically high 43.0-75.0 [facility] Comment on above: Performed By: #### C BC ####[facility] [address] [place] [address] 24528Mevapl Erendira Platelet mean volume (Bld) [Entitic vol] 10.0 fL Normal 9.5-13.5 [facility] Comment on above: Performed By: #### C BC ####[facility] [address] [place] [address] 68277Lqufum Erendira Platelets (Bld) [#/Vol] 163 103/ul Normal 150-450 [facility] Comment on above: Performed By: #### C BC ####[facility] [address] [place] [address] 67822Gwgpmw Erendira RBC (Bld) [#/Vol] 3.78 106/ul Critically low 4.20-5.40 [facility] Comment on above: Performed By: #### C BC ####[facility] [address] [place] [address] 57843Gznjsx Erendira WBC (Bld) [#/Vol] 9.9 103/ul Normal 4.0-11.0 [facility] Comment on above: Performed By: #### C BC ####[facility] Abf[address] E[place] GLUCOSE - 1HRon 03-04-2020 Glucose [Mass/Vol] 121 mg/dL Critically high 74-106 T [facility] Comment on above: Performed By: #### G LU1HR ####[facility] Bsp[address]ogs[address] [place] CHLAMYDIA/GONOCOCCUS EMILE (SW AB/URINE/PAPon 01-28-2020 Chlamydia trachomatis, EMILE Negative Normal Negative [facility] Comment on above: Performed By: #### C T/NGNA ####[facility] Hy[address] Neisseria gonorrhoeae, EMILE Negative Normal Negative [facility] Comment on above: Performed By: #### C T/NGNA ####[facility] Ig[address] [place], [place] [address] TRICHAMONAS VAGINALIS. NAAon 01-28-2020 Trich vag by EMILE Negative Normal Negative [facility] Comment on above: Performed By: #### T RICHNA ####[facility] [address] [place] [address] US PREG ANATOMY SINGLEon US PREG ANATOMY SINGLE PROCEDURE: US PREG ANATOMY SINGLE, US PREG CERVICAL LENGTH, 01/09/2020 12:50 PM EDT. INDICATIONS: screening, second trimester , anatomic survey, transvaginal evaluation of cervix and . COMPARISON: None. FINDINGS: EVALUATION Number of Fetuses: 1. Presentation: Cephalic. Heart Rate: 151 bpm. Placenta: Posterior, no previa or abruption, inferior margin 4.4 cm from the cervical os. Placenta cord insertion appropriate. Amniotic fluid volume: Appropriate. CERVIX LENGTH:5.0 cm by transvaginal assessment, closed. GESTATIONAL AGE: Provided gestational age: 20 weeks 0 days. Provided VANGIE: 05/28/2020. Sonographic gestational age: 19 weeks 6 days +/- 1 week 3 days. Sonographic VANGIE: 05/29/2020. BIOMETRY: BPD: 4.7 cm, 20 weeks 1 day, 56 percentile. HC: 17.2 cm, 19 weeks 5 days, 31 percentile. AC: 13.9 cm, 19 weeks 2 days, 24 percentile. FL: 3.4 cm, 20 weeks 3 days, 61 percentile. Estimated weight 319 g +/- 48 g. 38 percentile. Growth ratios: Normal. CI: 77.1. FL/BPD: 71.7. HC/AC: 1.23. FL/AC: 24.0. FL/HC: 19.5. ANATOMY: HEAD, FACE, NECK: Lateral ventricle: Normal Appearance. Choroid plexus: Normal Appearance Midline falx: Normal Appearance. Cavum: Normal Appearance. Cerebellum: Normal Appearance. Cisterna Magna: Normal Appearance. Facial features: Normal Appearance. CHEST: 4 chamber heart: Normal Appearance. LVOT/RVOT: Normal Appearance. Diaphragm: Normal appearance. ABDOMEN: Stomach: Normal Appearance. Abdominal situs: Normal Appearance. Kidneys: Normal Appearance. Bladder: Normal Appearance. Cord insertion: Normal Appearance. Cord: 3 vessels. Spine: Normal Appearance. EXTREMITIES: Lower Extremities: Normal Appearance. Upper Extremities: Normal Appearance. MATERNAL FINDINGS: No maternal adnexal abnormality. IMPRESSION: 1. Living intrauterine , cephalic presentation. 2. Composite sonographic age 19 weeks 6 days +/- 1 week 3 days. 3. Estimated weight 319 g, 38 percentile, growth ratios normal. 4. anatomic abnormality is not evident. 5. 5.0 cm transvaginal cervical length, closed. Electronically authenticated by: LINDA CAICEDO Date: 2020-01-09 14:28 Normal [facility] PAP ACOG PANEL 3: 21 to 29on 12-30-2019 Age Gdln ACOG Testing - Normal [facility] Comment on above: Performed By: #### A ROMY #### [facility] [address] [place], [place] [address] Helio Krishna Chlamydia, Nuc. Acid Amp Positive Abnormal Negative [facility] Comment on above: Result Comment: . Performed at: =G Performed By: #### A ROMY #### [facility] [address] [place], [place] [address] Helio Krishna DIAGNOSIS: Comment Normal [facility] Comment on above: Result Comment: NEGA TIVE FOR INTRAEPITHELIAL LESION OR MALIGNANCY. THIS SPECIMEN WAS RESCREENED PART OF OUR GIS APPLICATION DEVELOPER PROGRAM. Performed at: WB Performed By: #### A ROMY #### [facility] [address] [place] [address] Helio Krishna Gonococcus, Nuc. Acid Amp Negative Normal Negative [facility] Comment on above: Result Comment: Perf ormed at: =G Performed By: #### A ROMY #### [facility] [address] [place] [address] Helio Krishna Methodology: Comment Normal [facility] Comment on above: Result Comment: This liquid based ThinPrep(R) pap test was screened with the use of an image guided system. Performed at: WB Performed By: #### A ROMY #### [facility] [address] [place] [address] Helio Erendira Note: Comment Normal [facility] Comment on above: Result Comment: The Pap smear is a screening test designed to aid in the detection of premalignant and malignant conditions of the uterine cervix. It is not a diagnostic procedure and should not be used as the sole means of detecting cervical cancer. Both false-positive and false-negative reports do occur. . Performed at: WB Performed By: #### A ROMY #### [facility] [address] [place] [address] Helio Krishna Performed by: Comment Normal [facility] Comment on above: Result Comment: Cindy Taylor, Wet Suit Gluer (ASCP) Performed at: WB Performed By: #### A ROMY #### [facility] [address] [place] [address] Helio Krishna QC reviewed by: Comment Normal [facility] Comment on above: Result Comment: Shoshana Stevens, Supervisory Wet Suit Gluer (ASCP) Performed at: WB Performed By: #### A ROMY #### [facility] [address] [place] [address] Helio Erendira Reflex Criteria: Comment Normal [facility] Comment on above: Result Comment: The HPV DNA reflex criteria were not met with this specimen result therefore, no HPV testing was performed. . Performed at: WB Performed By: #### A ROMY #### [facility] [address] [place] [address] Helioari Krishna Specimen adequacy: Comment Normal [facility] Comment on above: Result Comment: Sati sfactory for evaluation. Endocervical and/or squamous metaplastic cells (endocervical component) are present. Performed at: WB Performed By: #### A ROMY #### [facility] [address] [place] [address] Helio Erendira . . Normal [facility] Comment on above: Result Comment: Perf ormed at: WB Performed By: #### A ROMY #### [facility] [address] [place] [address] Helio Krishna HGB(ELECTP) FRACTION PROFILE on 11-24-2019 Hemoglobin (Bld) [Mass/Vol] 97.3 % Normal 96.4-98.8 [facility] Comment on above: Performed By: #### A ROMY #### [facility] [address] [place] [address] Helio Erendira Hgb A2 2.7 % Normal 1.8-3.2 [facility] Comment on above: Performed By: #### A ROMY #### [facility] [address] [place] [address] Helio Erendira Hgb C 0.0 % Normal 0.0 [facility] Comment on above: Performed By: #### A ROMY #### [facility] [address] [place] [address] Helio Erendira Hgb F 0.0 % Normal 0.0-2.0 [facility] Comment on above: Performed By: #### A ROMY #### [facility] [address] [place] [address] Helio Erendira Hgb S 0.0 % Normal 0.0 [facility] Comment on above: Performed By: #### A ROMY #### [facility] [address] [place] [address] Helio Erendira Hgb Solubility Negative Normal Negative [facility] Comment on above: Performed By: #### A ROMY #### [facility] [address] [place] [address] Helio Krishna Hgb Variant Normal [facility] Comment on above: Performed By: #### A ROMY #### [facility] [address] [place] [address] Helio Krishna Interpretation Comment Normal [facility] Comment on above: Result Comment: Norm al adult hemoglobin present. Performed By: #### A ROMY #### [facility] [address] [place] [address] Helio Krishna HEP B SURFACE ANTIGEN SCREEN on 11-22-2019 HBsAg Screen Negative Normal Negative [facility] Comment on above: Performed By: #### A ROMY #### [facility] [address] [place] [address] Helio Krishna HEPATITIIS C VIRUS ANTIBODYo n 11-22-2019 Hep C Virus Ab <0.1 Normal 0.0-0.9 [facility] Comment on above: Result Comment: Nega tive: < 0.8 Indeterminate: 0.8 - 0.9 Positive: > 0.9 . The CDC recommends that a positive HCV antibody result be followed up with a HCV Nucleic Acid Amplification test (176914). Performed By: #### H #### [facility] [address] [place] [address] Helio Krishna HIV 1 AND 2 WITH REFLEXon HIV Screen 4th Generation wRfx Non Reactive Normal Non Reactive [facility] Comment on above: Performed By: #### A ROMY #### [facility] [address] [place] [address] Helio Krishna RPR QUANTon 11-22-2019 Rapid Plasma Reagin, Quant Non Reactive Normal NonRea<1:1 [facility] Comment on above: Performed By: #### A ROMY #### [facility] [address] [place] [address] Helio Krishna RUBELLA AB IGGon 11-22-2019 Rubella Antibodies, IgG 1.49 index Normal Immune >0.99 [facility] Comment on above: Result Comment: Non- immune <0.90 Equivocal 0.90 - 0.99 Immune >0.99 Performed By: #### A ROMY #### [facility] [address] [place], [place] [id number] Helio Erendira VARICELLA IGG ABon 0 Varicella Zoster IgG <135 Critically low Immune >165 [facility] Comment on above: Result Comment: Nega tive <135 Equivocal 135 - 165 Positive >165 A positive result generally indicates exposure to the pathogen or administration of specific immunoglobulins, but it is not indication of active infection or stage of disease. Performed By: #### A ROMY #### [facility] [address] [place], [place] [id number] Helio Erendira CBC AUTO DIFFon 11-21-2019 Basophils (Bld) [#/Vol] 0.0 103/ul Normal 0.0-0.1 [facility] Comment on above: Performed By: #### C BC #### [facility] [address] [place] [address] Helio Erendira Basophils/100 WBC (Bld) 0.3 % Normal 0.2-2.0 [facility] Comment on above: Performed By: #### C BC #### [facility] [address] [place] [address] Helio Erendira Eosinophils (Bld) [#/Vol] 0.1 103/ul Normal 0.0-0.7 [facility] Comment on above: Performed By: #### C BC #### [facility] [address] [place], [place] [phone] Helio Erendira Eosinophils/100 WBC (Bld) 0.8 % Critically low 0.9-7.0 [facility] Comment on above: Performed By: #### C BC #### [facility] [address] [place], [place] [phone] Helio Erendira Erythrocyte distribution width (RBC) [Ratio] 12.8 % Normal 11.0-15.0 [facility] Comment on above: Performed By: #### C BC #### [facility] [address] [place], [place] [phone] Helio Erendira Hematocrit (Bld) [Volume fraction] 36.9 % Normal 36.0-48.0 [facility] Comment on above: Performed By: #### C BC #### [facility] [address] [place], [place] [address] Helio Erendira Hemoglobin (Bld) [Mass/Vol] 12.7 g/dL Normal 12.0-16.0 [facility] Comment on above: Performed By: #### C BC #### [facility] [address] [place] [id number] Helio Erendira IG # 0.05 10e3/ul Critically high 0.00-0.03 [facility] Comment on above: Performed By: #### C BC #### [facility] [address] [place] [id number] Helio Erendira IG % 0.6 % Critically high 0.0-0.5 [facility] Comment on above: Performed By: #### C BC #### [facility] [address] [place], [place] [phone] Helio Erendira Lymphocytes (Bld) [#/Vol] 1.2 103/ul Normal 1.2-3.8 [facility] Comment on above: Performed By: #### C BC #### [facility] [address] [place], [place] [address] Helio Erendira Lymphocytes/100 WBC (Bld) 13.6 % Critically low 20.5-60.0 [facility] Comment on above: Performed By: #### C BC #### [facility] [address] [place], [place] [address] Helio Erendira MANUAL DIFF REQ NO Normal [facility] Comment on above: Performed By: #### C BC #### [facility] [address] [place], [place] [phone] Helio Erendira MCH (RBC) [Entitic mass] 30.0 pg Normal 26.7-34.0 [facility] Comment on above: Performed By: #### C BC #### [facility] [address] [place], [place] [phone] Helio Erendira MCHC (RBC) [Mass/Vol] 34.4 g/dL Normal 29.9-35.2 [facility] Comment on above: Performed By: #### C BC #### [facility] [address] [place], [place] [address] Helio Erendira MCV (RBC) [Entitic vol] 87.2 fL Normal 81.0-99.0 [facility] Comment on above: Performed By: #### C BC #### [facility] [address] [place], [place] [address] Helio Ernedira Monocytes (Bld) [#/Vol] 0.6 103/ul Normal 0.3-0.8 [facility] Comment on above: Performed By: #### C BC #### [facility] [address] [place], [place] [address] Helio Erendira Monocytes/100 WBC (Bld) 6.7 % Normal 1.7-12.0 [facility] Comment on above: Performed By: #### C BC #### [facility] [address] [place] [address] Helio Erendira Neutrophils (Bld) [#/Vol] 6.9 103/ul Critically high 1.4-6.5 [facility] Comment on above: Performed By: #### C BC #### [facility] [address] [place] [address] Helio Erendira Neutrophils/100 WBC (Bld) 78.0 % Critically high 43.0-75.0 [facility] Comment on above: Performed By: #### C BC #### [facility] [address] [place] [address] Helio Erendira Platelet mean volume (Bld) [Entitic vol] 9.8 fL Normal 9.5-13.5 [facility] Comment on above: Performed By: #### C BC #### [facility] [address] [place] [address] Helio Erendira Platelets (Bld) [#/Vol] 200 103/ul Normal 150-450 [facility] Comment on above: Performed By: #### C BC #### [facility] [address] [place] [address] Helio Erendira RBC (Bld) [#/Vol] 4.23 106/ul Normal 4.20-5.40 [facility] Comment on above: Performed By: #### C BC #### [facility] [address] [place] [address] Helioari Krishna WBC (Bld) [#/Vol] 8.8 103/ul Normal 4.0-11.0 [facility] Comment on above: Performed By: #### C BC #### [facility] [address] [place] [phone] Helioari Krishna CULTURE URINEon 11-21-2019 CULTURE URINE Culture Observations : No growth Normal [facility] Comment on above: Performed By: #### A ROMY #### [facility] [address] [place] [address] Helio Erendira DRUG SCREEN RAPID (URINE)on 11-21-2019 AMP Negative Normal NEGATIVE [facility] Comment on above: Performed By: #### D CHEMA, UAMIC #### [facility] [address] [place] [address] Helio Erendira BAR Negative Normal NEGATIVE [facility] Comment on above: Performed By: #### D CHEMA, UAMIC #### [facility] [address] [place] [address] Helio Erendira BUP Negative Normal NEGATIVE [facility] Comment on above: Performed By: #### D CHEMA, UAMIC #### [facility] [address] [place] [address] Helio Erendira BZO Negative Normal NEGATIVE [facility] Comment on above: Performed By: #### D CHEMA, UAMIC #### [facility] [address] [place] [address] Helio Erendira JAYLA Negative Normal NEGATIVE [facility] Comment on above: Performed By: #### D CHEMA, UAMIC #### [facility] [address] [place] [address] Helio Erendira CUT-OFFS SEE BELOW Normal [facility] Comment on above: Result Comment: AMP (Amphetamine): 500ng/mL, BAR (Barbituates): 200 ng/mL, BZO (Benzodiazepines): 150 ng/mL, BUP (Buprenorphine): 10 ng/mL, JAYLA (Cocaine): 150 ng/mL, mAMP (Methamphetamine): 500 ng/mL, MTD (Methadone): 200 ng/mL, OPI (Opiates): 100 ng/mL or 2000 ng/mL, OXY (Oxycodone): 100 ng/mL, PCP (Phencyclidine): 25 ng/mL, PPX (Propoxyphene): 300 ng/mL, THC (Cannabinoids): 50 ng/mL, TCA (Trycyclic Antidepressants): 300 ng/mL Performed By: #### Roque BEAR UAMIC #### [facility] [address] [place] [address] [facility] HEADER DRUG CLASS TEST SYSTEM CUT-OFF CONCENTRATIONS ARE FOLLOWS: Normal [facility] Comment on above: Performed By: #### Roque BEAR UAMIC #### [facility] [address] [place] [address] Helio Erendira mAMP Negative Normal NEGATIVE [facility] Comment on above: Performed By: #### Roque BEAR UAMIC #### [facility] [address] [place] [address] Helio Erendira MTD Negative Normal NEGATIVE [facility] Comment on above: Performed By: #### Roque BEAR UAMIC #### [facility] [address] [place] [address] Helio Erendira OPI Negative Normal NEGATIVE [facility] Comment on above: Performed By: #### Roque BEAR UAMIC #### [facility] [address] [place] [address] Helio Erendira OXY Negative Normal NEGATIVE [facility] Comment on above: Performed By: #### Roque BEAR UAMIC #### [facility] [address] [place] [address] Helio Erendira PCP Negative Normal NEGATIVE [facility] Comment on above: Performed By: #### Roque BEAR UAMIC #### [facility] [address] [place] [address] Helio Erendira PPX Negative Normal NEGATIVE [facility] Comment on above: Performed By: #### Roque BEAR UAMIC #### [facility] [address] [place] [address] Helio Krishna TCA Negative Normal NEGATIVE [facility] Comment on above: Performed By: #### D CHEMA UAMIC #### [facility] [address] [place] [address] Helio Krishna THC Negative Normal NEGATIVE [facility] Comment on above: Performed By: #### D CHEMA UAMIC #### [facility] [address] [place] [address] Helio Krishna GLYCOHEMOGLOBIN A1Con 2019 Glucose [Mass/Vol] 94 mg/dL Normal [facility] Comment on above: Performed By: #### A 1C #### [facility] [address] [place] [address] Helio Krishna HbA1c (Bld) [Mass fraction] 4.9 % Normal <=6.0 [facility] Comment on above: Performed By: #### A 1C #### [facility] [address] [place] [address] Helio Krishna PREG QUANT HCGon 11-21-2019 HCG QUANT 19655.00 mIU/mL Normal [facility] Comment on above: Performed By: #### P REGQNT #### [facility] [address] [place] [address] Helio Krishna HCG RANGE SEE BELOW Normal [facility] Comment on above: Result Comment: 5-50 0-1 WEEK 40-300 1-2 WEEKS 100-1,000 2-3 WEEKS 500-6,000 3-4 WEEKS 5,000-200,000 1-2 MONTHS 10,000-100,000 2-3 MONTHS 3,000-50,000 2ND TRIMESTER 1,000-50,000 3RD TRIMESTER Performed By: #### P REGQNT #### [facility] [address] [place] [address] Helio Erendira TYPE AND SCREENon 11-21-2019 TYPE AND SCREEN Negative Normal [facility] Comment on above: Performed By: #### T NS #### [facility] [address] [place] [address] Helio Krishna UA RANDOM W/MICROSCOPICon 03 -06-2020 Bacteria LM.HPF (Urine sed) [#/Area] TRACE Normal NONE SEEN [facility] Comment on above: Performed By: #### D CHEMA UAMIC #### [facility] [address] [place] [address] Helio Erendira Bilirubin [Mass/Vol] Negative Normal NEGATIVE [facility] Comment on above: Performed By: #### D CHEMA UAMIC #### [facility] [address] [place] [address] Helio Erendira BLOOD Negative Normal NEGATIVE [facility] Comment on above: Performed By: #### D CHEMA UAMIC #### [facility] [address] [place] [address] Helio Erendira CAST NONE SEEN Normal NONE SEEN [facility] Comment on above: Performed By: #### D CHEMA UAMIC #### [facility] [address] [place] [address] Helio Erendira Clarity (U) CLEAR Normal [facility] Comment on above: Performed By: #### Roque BEAR UAMIC #### [facility] [address] [place] [address] Helio Erendira Color (U) LT. YELLOW Normal YELLOW [facility] Comment on above: Performed By: #### Roque BEAR UAMIC #### [facility] [address] [place] [address] Helio Erendira Crystals LM Nom (Urine sed) NONE SEEN Normal NONE SEEN [facility] Comment on above: Performed By: #### Roque BEAR UAMIC #### [facility] [address] [place] [address] Helio Erendira Epithelial cells LM.HPF (Urine sed) [#/Area] RARE Normal [facility] Comment on above: Performed By: #### Roque BEAR UAMIC #### [facility] [address] [place] [address] Helio Erendira Glucose [Mass/Vol] Negative Normal NEGATIVE [facility] Comment on above: Performed By: #### Roque BEAR UAMIC #### [facility] [address] [place], [place] [address] Helio Erendira Ketones Ql (U) Negative Normal NEGATIVE [facility] Comment on above: Performed By: #### D CHEMA, UAMIC #### [facility] [address] [place], [place] [address] Helio Erendira MUCOUS NONE SEEN Normal NONE SEEN [facility] Comment on above: Performed By: #### D CHEMA, UAMIC #### [facility] [address] [id number] Helio Erendira Nitrite Ql (U) Negative Normal NEGATIVE [facility] Comment on above: Performed By: #### D CHEMA, UAMIC #### [facility] [address] [id number] Helio Erendira pH (Bld) 7.0 Normal 5-9 [facility] Comment on above: Performed By: #### D CHEMA, UAMIC #### [facility] [address] [id number] Helio Erendira Protein [Mass/Vol] Negative Normal [facility] Comment on above: Performed By: #### D CHEMA, UAMIC #### [facility] [address] [id number] Helio Erendira RBC (Bld) [#/Vol] NONE SEEN Normal 0-2 [facility] Comment on above: Performed By: #### D CHEMA, UAMIC #### [facility] [address] [id number] Helio Erendira SPEC GRAVITY 1.010 Normal 1.005-<=1.[address] [facility] Comment on above: Performed By: #### D CHEMA, UAMIC #### [facility] [address] [id number] Helio Erendira Urobilinogen Qn (U) 0.2 EU/dl Normal [facility] Comment on above: Performed By: #### D CHEMA, UAMIC #### [facility] [address] [id number] Helio Erendira WBC (Bld) [#/Vol] SMALL Normal NEGATIVE [facility] Comment on above: Performed By: #### D CHEMA UAMIC #### [facility] [address] [place], [place] [address] Helio Krishna WBC (Bld) [#/Vol] 2-5 Normal NONE SEEN [facility] Comment on above: Performed By: #### D PEARLD, UAMIC #### [facility] [address] [place], [place] [address] Helio Krishna US PREG <14 WKSon 11-05-2019 US PREG <14 WKS Patient: YAKELIN MELGOZA Exam Date: 11/05/2019 : 1995 Gender:F Ordering : DR. RAMONA JIMÉNEZ . Admission #: [id number] Family : Order #: [id number] CLICK HERE TO VIEW EXAM RADIOLOGY REPORT PROCEDURE: ULTRASOUND < 14 WEEKS COMPARISON: None. INDICATIONS: Secondary physiologic amenorrhea; 10w5d single TECHNIQUE: Transabdominal sonographic examination for obstetrical and evaluation. FINDINGS: GESTATIONAL SAC: Present and normal appearing. POLE: Present and normal appearing. YOLK SAC: Present. CARDIAC ACTIVITY: Present. UTERUS: Normal. OVARIES: Right: Normal. Left: Normal. CERVIX: 4.8 cm in length. Closed. CUL-DE-SAC: Normal. OTHER: None. AGE BY LMP: 10 weeks, 5 days VANGIE BY LMP: May 28, 2020 AGE BY US CRL: 11 weeks, 2 days VANGIE BY US CRL: May 24, 2020 CONCLUSION: 1. Viable intrauterine gestation of 11 weeks, 2 days Dictated by: Frankie Hendrickson M.D. on 11/06/2019 at 14:26 Approved by: Frankie Hendrickson M.D. on 11/06/2019 at 14:27 Normal [facility] ABO AND RH TYPEon 10-28-2019 ABO and Rh group Nom (Bld) ABO Rh Typing A Rh Positive Normal [facility] Comment on above: Performed By: #### A BORH #### [facility] [address] [place], [place] [address] Helio Krishna PREG QUANT HCGon 10-28-2019 HCG QUANT 71949.00 mIU/mL Normal [facility] Comment on above: Result Comment: Veri fied by dilution Performed By: #### P REGQNT #### [facility] [address] [place], [place] [address] Helio Krishna HCG RANGE SEE BELOW Normal [facility] Comment on above: Result Comment: 5-50 0-1 WEEK 40-300 1-2 WEEKS 100-1,000 2-3 WEEKS 500-6,000 3-4 WEEKS 5,000-200,000 1-2 MONTHS 10,000-100,000 2-3 MONTHS 3,000-50,000 2ND TRIMESTER 1,000-50,000 3RD TRIMESTER Performed By: #### P REGQNT #### [facility] [address] [place], [place] [address] Helio Krishna Vital Signs Date Time Vital Sign Value Performing Clinician Faci lity 09-25-2023 13:12-0500 Body height 157.5 cm [facility] 09-25-2023 13:12-0500 Body mass index (BMI) [Ratio] 28.72 kg/m2 [facility] 09-25-2023 13:12-0500 Body weight 71.22 kg [facility] 09-25-2023 13:12-0500 Diastolic blood pressure 86 mm[Hg] [facility] 09-25-2023 13:12-0500 Systolic blood pressure 116 mm[Hg] [facility] Encounters Encounter Date Encounter Type Care Provider Facility Start: 05-13-2024 End: 05-13-2024 ambulatory SARITA ELIO Not Available Start: 04-29-2024 End: 04-29-2024 ambulatory MONICO GM Not Available Start: 04-15-2024 End: 04-15-2024 ambulatory SARITA ELIO Not Available Start: 03-31-2024 End: 03-31-2024 ambulatory MONICO GM Not Available Start: 03-03-2024 End: 03-03-2024 ambulatory MONICO GM Not Available Start: 02-05-2024 End: 02-05-2024 ambulatory SARITA ELIO Not Available Start: 01-08-2024 End: 01-08-2024 ambulatory MONICO GM Not Available Start: 12-13-2023 End: 12-13-2023 ambulatory MONICO WORRELL Not Available Start: 09-25-2023 End: 09-25-2023 ambulatory [facility] Pravin [facility] Start: 09-25-2023 End: 09-25-2023 Office outpatient new 30 minutes [facility] [employer] [facility] Comment on above: Encounter for IUD re moval (Primary Dx) Start: 05-21-2023 End: 05-22-2023 ambulatory SARITA Costello [facility] Start: 05-21-2023 End: 05-21-2023 Subsequent hospital visit by physician Sarita Bedoya EXTENSION SERVICE SPECIALIST IN CHARGE - PARASITOLOGIST Work Phone: [facility] Laboratory Start: 04-25-2023 ambulatory Sarita Biswasu macario EXTENSION SERVICE SPECIALIST IN CHARGE-TRUSS PULLER HELPER Facility:[facility] Start: 04-16-2023 End: 04-17-2023 ambulatory Sarita Bedoya EXTENSION SERVICE SPECIALIST IN CHARGE-TRUSS PULLER HELPER Facility:[facility] Start: 04-16-2023 End: 04-16-2023 Emergency department patient visit SARITA Costello [facility] Start: 03-08-2023 End: 03-09-2023 ambulatory Sarita Bedoya EXTENSION SERVICE SPECIALIST IN CHARGE-TRUSS PULLER HELPER Facility:[facility] Start: 05-25-2020 End: 05-26-2020 Evaluation and management of inpatient RAMONA JIMÉNEZ Facility:[facility]1 Start: 05-18-2020 End: 05-19-2020 Patient encounter procedure RAMONA JIMÉNEZ Facility:[facility] Start: 05-03-2020 End: 05-03-2020 Patient encounter procedure RAMONA JIMÉENZ Facility:[facility] Start: 03-04-2020 End: 03-05-2020 Patient encounter procedure RAMONA JIMÉNEZ Facility:[facility] Start: 01-27-2020 End: 01-27-2020 Patient encounter procedure RAMONA JIMÉNEZ Facility:[facility] Start: 01-09-2020 End: 01-10-2020 Patient encounter procedure RAMONA JIMÉNEZ Facility:[facility] Start: 12-26-2019 End: 12-26-2019 Patient encounter procedure RAMONA JIMÉNEZ Facility:[facility] Start: 11-21-2019 End: 11-21-2019 Patient encounter procedure RAMONA JIMÉNEZ Facility:[facility] Start: 11-21-2019 End: 11-22-2019 Patient encounter procedure RAMONA JIMÉNEZ Facility:[facility] Start: 11-05-2019 End: 11-06-2019 Patient encounter procedure RAMONA JIMÉNEZ Facility:[facility] Start: 10-28-2019 End: 10-29-2019 Patient encounter procedure RAMONA JIMÉNEZ Facility:[facility] Start: 05-16-2016 End: 05-16-2016 Ambulatory Ebamber Upton Facility:[facility] Procedures Date Procedure Procedure Detail Performing Clinician Start: 05-21-2023 Toxin/antitoxin assa y tissue culture Sarita Bedoya EXTENSION SERVICE SPECIALIST IN CHARGE - PARASITOLOGIST Work Phone: Start: 05-26-2020 Delivery of Products of Conception, External Approach RAMONA JIMÉNEZ Start: 05-26-2020 Drainage of Amniotic Fluid, Therapeutic from Products of Conception, Via Natural or Artificial Opening RAMONA JIMÉNEZ Start: 05-25-2020 Introduction of Horm one into Female Reproductive, Via Natural or Artificial Opening RAMONA JIMÉNEZ Plan of Treatment Date Care Activity Detail Author Start: 09-23-2032 DTaP,Tdap and Td Vac cines (3 - Td or Tdap) DTaP,Tdap and Td Vaccines (3 - Td or Tdap) [facility] Start: 09-23-2032 DTaP/Tdap/Td vaccine (3 - Td or Tdap) DTaP/Tdap/Td vaccine (3 - Td or Tdap) [facility] Start: 09-25-2024 Adult BMI Screening Adult BMI Screen ing [facility] Start: 09-25-2024 Tobacco Screening Tobacco Screening [facility] Start: 05-18-2023 Influenza vaccination Influenza Vacc ine [facility] Start: 04-17-2023 Influenza vaccination Flu vaccine (# 1) [facility] Start: 12-04-2016 Screening for malign ant neoplasm of cervix Pap smear [facility] Start: 12-04-2013 Adult BMI Follow Up Plan Adult BMI Follow Up Plan [facility] Start: 12-04-2013 Hepatitis C screening Hepatitis C sc reen [facility] Start: 12-04-2010 HIV screening HIV screen [facility] Start: 2007 Depression Screen Depression Screen [facility] Start: 2007 Depression Screening Depression Scre ening [facility] Start: 12-04-1996 Varicella vaccine (1 of 2 - 2-dose childhood series) Varicella vaccine (1 of 2 - 2-dose childhood series) [facility] Start: 06-06-1996 COVID-19 Vaccine (#1) COVID-19 Vacci ne (#1) [facility] End: 05-21-2023 Gastrointestinal Panel, Molecular [facility] Work Phone: Comment on above: Once for 1 Occurrenc es starting 05/21/2023 until 05/21/2023 End: 05-21-2023 O&P PANEL (TRAVEL ASSOCIATED) #1 [employer] [employer] Comment on above: Once for 1 Occurrenc es starting 05/21/2023 until 05/21/2023 Immunizations Immunization Date Immunization Notes Care Provider Fa vero 09-23-2022 tetanus toxoid, redu angelina diphtheria toxoid, and acellular pertussis [facility] Payers Date Payer Category Payer Unknown 2016 Private Health Insurance [id number] 1995 Unknown [id number] 2.16.84 0.1.136825.3.579.2.593 1995 Unknown [id number] 2.16.84 0.1.263519.3.579.2.593 1995 Unknown [id number] 2.16.84 0.1.707185.3.579.2.593 1995 Unknown [id number] 2.16.84 0.1.288175.3.579.2.593 1995 Unknown [id number] 2.16.84 0.1.724965.3.579.2.593 1995 Unknown [id number] 2.16.84 0.1.287531.3.579.2.593 1995 Unknown [id number] 2.16.84 0.1.328430.3.579.2.593 1995 Unknown [id number] 2.16.84 0.1.274008.3.579.2.593 1995 Unknown [id number] 2.16.84 0.1.095865.3.579.2.593 1995 Unknown [id number] 2.16.84 0.1.899983.3.579.2.593 1995 Unknown [id number] 2.16.84 0.1.150140.3.579.2.593 1995 Unknown [id number] 2.16. 840.1.586052.3.579.2.196 1995 Unknown [id number] 2.16. 840.1.487825.3.579.2.196 1995 Unknown [id number] 2.16. 840.1.697203.3.579.2.196 1995 Unknown [id number] 2.16. 840.1.481439.3.579.2.196 1995 Unknown [id number] 2.16.8 40.1.328303.3.579.2.173 1995 Unknown [id number] 2.16.8 40.1.234815.3.579.2.173 1995 Unknown [id number] 2.16.84 0.1.085001.3.579.2.1286 1995 Unknown [id number] 2.16.84 0.1.605180.3.579.2.1259 1995 Unknown [id number] 2.16.84 0.1.538877.3.579.2.1259 1995 Unknown [id number] 2.16.84 0.1.988126.3.579.2.1259 1995 Unknown [id number] 2.16.84 0.1.887610.3.579.2.1259 1995 Unknown [id number] 2.16.84 0.1.498129.3.579.2.1259 1995 Unknown [id number] 2.16.84 0.1.312381.3.579.2.1259 1995 Unknown [id number] 2.16.84 0.1.272074.3.579.2.1259 1995 Unknown [id number] 2.16.84 0.1.226178.3.579.2.1259 1959 Unknown [id number] Social History Date Type Detail Facility Start: 09-23-2022 End: 04-16-2023 Tobacco smoking status NHIS Never smoked tobacco [facility] Start: 09-23-2022 End: 04-16-2023 Tobacco use and exposure Smokeless tobacco non-user [facility] Start: 1995 Sex Assigned At Not on file [facility] Start: 09-25-2023 Alcohol intake Ex-drinker (finding) [facility] Start: 09-23-2022 End: 09-25-2023 History of Social function [facility] Start: 09-23-2022 End: 09-25-2023 Tobacco use panel [facility] Within the past 12 months we worried whether our food would run out before we got money to buy more. Never True [facility] History of Present illness Narrative 09-25-2023 Bella Pagan LPN - 09/25/2023 1:15 PM EST Note Date & Type Note Facility 09-25-2023 History of Presen t illness Narrative IUD Removal Procedure Note Type of IUD: Mirena Date of insertion: 2019 Reason for removal: Desires - last pap was [address] Jiménez Other relevant history/information: none Procedure Time Out Documentation Procedure Details IUD strings visible: yes Removal: IUD strings grasped and IUD removed intact with gentle traction. The patient tolerated the procedure well. All appropriate instructions regarding removal were reviewed. Plans for contraception: no method Other follow-up needed: RTO with positive test. Patient is taking a vitamin. The patient was advised to call for any fever or for prolonged or severe pain or bleeding. She was advised to use OTC ibuprofen as needed for mild to moderate pain. SHERLEY Loo APRN-CNP 09/25/23 1344 documented in this encounter [facility] Evaluation note Note Date & Type Note Facility Evaluation note Diagnosis Encounter for IUD removal- Primary documented in this encounter [facility] Instructions Attachments Note Date & Type Note Facility Instructions The following attachments cannot be sent through Care Everywhere.How to plan and prepare for a healthy (Kosovan)documented in this encounter [facility] Summary Purpose Family History No Family History Records FoundNo Family History Records FoundNo Family History Records FoundNo Family History Records FoundNo Family History Records FoundNo Family History Records Found Advance Directives No Advanced Directives Records FoundNo Advanced Directives Records FoundNo Advanced Directives Records FoundNo Advanced Directives Records FoundNo Advanced Directives Records FoundNo Advanced Directives Records Found Additional Source Comments INFORMATION SOURCE (unrecogn ized section and content) DATE CREATED AUTHOR 03/13/2018 [facility] DATE CREATED AUTHOR AUTHOR'S ORGANIZ ATION 06/02/2020 [facility] [place] [facility] DATE CREATED AUTHOR AUTHOR'S ORGANIZ ATION 04/26/2023 [facility] DATE CREATED AUTHOR AUTHOR'S ORGANIZ ATION 05/22/2023 [facility] DATE CREATED AUTHOR AUTHOR'S ORGANIZ ATION 09/30/2023 [facility] DATE CREATED AUTHOR AUTHOR'S ORGANIZ ATION 05/14/2024 [facility] Care Teams (unrecognized sec tion and content) Gluer Machine Setup Operator Relationship Specialty Start Date End Date Sarita Bedoya, KIESHA - PARASITOLOGIST [address] [place] [address] PCP - General Certified Clinical Nurse Specialist 04/16/23 [employer] Operator Relationship Specialty Start Date End Date Sarita Bedoya, EXTENSION SERVICE SPECIALIST IN CHARGE-TRUSS PULLER HELPER [address] [facility] [address] [place] [address] PCP - General Nurse Practitioner 05/05/21 Reason for Visit (unrecogniz ed section and content) Reason Comments Contraception IUD Removal FOR RECORDS PERTAINING TO PATIENTS WHO ARE OR HAVE BEEN ENROLLED IN A CHEMICAL DEPENDENCY/SUBSTANCEABUSE PROGRAM, SOME INFORMATION MAY BE OMITTED. This clinical summary was aggregated from multiple sources. Caution should be exercised in using it in the provision of clinical care. This summary normalizes information from multiple sources, and as a consequence, information in this document may materially change the coding, format and clinical context of patient data. In addition, data may be omitted in some cases. CLINICAL DECISIONS SHOULD BE BASED ON THE PRIMARY CLINICAL RECORDS. [facility] [employer] [facility] provides no warranty or guarantee of the accuracy or completeness of information in this document.
== END 2024-05-27 19:29 | disposition home or self-care (01) ==
LOC: LAB 19:28
PROVIDERS: Visit Provider Obstetrics & Gynecology
DX: Z34.93 Encounter for supervision of normal pregnancy, unspecified, third trimester (principal)
CPT/HCPCS: 87081; 87150

== ENCOUNTER 2024-05-29 08:15 | Outpatient (OUT) | payer OTHER, SELFPAY ==
--- NOTE | 2024-05-29 08:17 | US_ITS ---
[address] [address] Patient Name: YAKELIN MELGOZA MRN: [id number] date: 1995 Sex: F Assigned Patient Location: US Current Patient Location: US Accession/Order Number: [id number] Exam Date: 05/29/2024 08:30 Report Date: 05/29/2024 09:15 At the request of: ANGELIC BALLARD Procedure: US OB growth EXAMINATION: US OB growth HISTORY: Size Inconsistent With Dates O26.849 COMPARISON: 04/29/2024 FINDINGS: Heart Rate: 136.36 bpm Amniotic Fluid Volume: 15.4 cm, largest fluid pocket 5.5 cm Number: 1 Position: Cephalic presentation, longitudinal lie BIOMETRY: BPD: 9.26 cm; 37 weeks 4 days; 89.50 % HC: 34.50 cm; 39 weeks 6 days; 94 % AC: 31.65 cm; 35 weeks 4 days; 40.20 % FL: 6.93 cm; 35 weeks 4 days; 27.70 % EFW: 2885.93 g; 51.20 %, 6 lbs. 6 oz. FL/AC: 21.90 FL/BPD: 74.84 HC/AC: 1.09 GESTATIONAL AGE: Age by EDC: 36 weeks 2 days VANGIE by EDC: 2024-06-24 Age by US: 37 weeks 1 day VANGIE by US: 2024-06-18 US/US OB growth IMPRESSION: Normal interval growth Electronically authenticated by: FRANKIE HENDRICKSON Date: 05/29/2024 09:15
== END 2024-05-29 08:16 | disposition home or self-care (01) ==
LOC: US 08:15
PROVIDERS: Visit Provider Physician Assistant
DX: O26.843 Uterine size-date discrepancy, third trimester (principal); Z3A.37 37 weeks gestation of pregnancy
CPT/HCPCS: 76816

== ENCOUNTER 2024-06-17 04:54 | Inpatient (IN) | payer OTHER, SELFPAY ==
[2024-06-17] VITALS (27 sets, daily range): BP systolic 93–130; BP diastolic 52–79; PULSE 58–160; TEMP 36.2
--- OUTSIDE RECORDS SUMMARY | 2024-06-17 04:57 | XMS_ITS | CCD ---
Author Organization [facility] Care Team Providers Care Certified Composites Technician Name Role Phone Lobo Upton Unavailable UnavailRAMONA [...] RAMONA JIMÉNEZ Procedure Practitioner Unavailab le Cleemput LEGAL COORDINATOR-FEED MIXER HELPER, Sarita Emmanuel Primary Care Jayy thorpe Cleemput LEGAL COORDINATOR-FEED MIXER HELPER, Sarita Emmanuel Attending Jayy thorpe Cleemput LEGAL COORDINATOR-FEED MIXER HELPER, Sarita Emmanuel Attending Jayy mariole Cleemput LEGAL COORDINATOR-FEED MIXER HELPER, Sarita Emmanuel Primary Care Jayy thorpe Cleemput LEGAL COORDINATOR-FEED MIXER HELPER, Sarita Emmanuel Referring Jayy Roach MD, Demetrice Portillo Attending Unavailable Cleemput LEGAL COORDINATOR-FEED MIXER HELPER, Sarita Emmanuel Primary Care Unavai lable Cleemput LEGAL COORDINATOR-FEED MIXER HELPER, Sarita Emmanuel Primary Care Unavai lable Cleemput LEGAL COORDINATOR-FEED MIXER HELPER, Sarita Emmanuel Attending Unavai lable Cleemput LEGAL COORDINATOR - ENVIRONMENTAL QUALITY ANALYST, Sarita Costello Primary Care Provider SARITA BEDOYA Primary Care Unavailable CLEEMPJOAQUINA, SARITA Costello Referring Unavailable CLEEMPUT, SARITA Costello Primary Care Unavailable GRISELDA CASTANON Attending Unavailable Cleemput LEGAL COORDINATOR-FEED MIXER HELPER, Sarita Costello Primary Care Provider CLEEMPUT, SARITA Costello Referring Unavailable CLEEMPUT, SARITA Costello Primary Care Unavailable GM, MONICO Attending Unavailable ELIO, SARITA Attending Unavailable GM, MONICO Attending Unavailable GM, MONICO Attending Unavailable ELIO, SARITA Attending Unavailable GM, MONICO Attending Unavailable ELIO, SARITA Attending Unavailable GM, MONICO Attending Unavailable ELIO, SARITA Attending Unavailable GM, MONICO Attending Unavailable Allergies Allergy Classification Reported Allergen(s) Allergy Type Date of Onset Reaction(s) Facility (1 source) Adhesive agent Drug allergy (disorder) [facility] Repository (2 sources) Latex; Translations: [LATEX] Drug allergy (disorder) 3 [facility] Repository (1 source) morphine Drug Allergy [facility] Repository (1 source) Latex Drug allergy (disorder) 0 [facility] Repository (2 sources) Latex Propensity to adverse reactions to drug 3 [facility] (2 sources) Hydrocortisone; Translations: [HYDROCORTISONE] Drug Allergy 3 [facility] Medications Current Medications Medication Drug Class(es) Dates [...] Class(es) Dates Sig (Normalized) Sig (Original) levonorgestrel 0.825282 mg/hr intrauterine system (1 source) Progestin, Progestin-containi [...] PARASITES SEEN Report Status FINAL 05/22/2023 Normal [facility] Comment on above: Performed By: #### O PP #### [address] [id number] Energy Administrator: Mickey Benson MD [facility] [address] [place] [address] [place] [address] Energy Administrator: Frankie Sen MD [facility] Campylobacter sp PCR POSITIVE: Campylobacter spp. (jejuni or coli) DNA Detected Abnormal CAMNEG [facility] Comment on above: Result Comment: Resu lts reported to the appropriate Health Department Performed By: #### S TLPCR #### [address] [id number] Energy Administrator: Mickey Benson MD [facility] [address] [place] [address] [place] [address] Energy Administrator: Frankie Sen MD #### CDIFQ #### [facility] [address] [place] [address] Energy Administrator: Frankie Sen MD E coli enterotox PCR NEGATIVE: No Enterotoxigenic E. coli (ETEC) Heat-labile and heat-stable (LT/ST) Normal EECNEG [facility] Comment on above: Result Comment: DNA Detected Performed By: #### S TLPCR #### [facility] [address] [place] [address] Energy Administrator: Mickey Benson MD [facility] [address] [place] [address] [place] [address] Energy Administrator: Frankie Sen MD #### CDIFQ #### [facility] [address] [place] [address] [place] [address] Energy Administrator: Frankie Sen MD Plesiomonas sp PCR Negative Normal PLENEG [facility] Comment on above: Performed By: #### S TLPCR #### [address] [address] Energy Administrator: Mickey Benson MD [facility] [address] [place] [address] [place] [address] Energy Administrator: Frankie Sen MD #### CDIFQ #### [address] [place] [address] Energy Administrator: Frankie Sen MD Salmonella sp PCR Negative Normal SALNEG [facility] Comment on above: Performed By: #### S TLPCR #### [address] [address] Energy Administrator: Mickey Benson MD [facility] [address] [place] [address] [place] [address] Energy Administrator: Frankie Sen MD #### CDIFQ #### [address] [place] [address] Energy Administrator: Frankie Sen MD Shigatoxin gene PCR Negative Normal STXNEG [facility] Comment on above: Performed By: #### S TLPCR #### [address] [address] Energy Administrator: Mickey Benson MD [facility] [address] [place] [address] [place] [address] Energy Administrator: Frankie Sen MD #### CDIFQ #### [facility] [address] [place] [address] Energy Administrator: Frankie Sen MD Shigella sp PCR Negative Normal SHINEG [facility] Comment on above: Performed By: #### S TLPCR #### [facility] [address] [place] [address] Energy Administrator: Mickey Benson MD [facility] [address] [place] [address] [place] [address] Energy Administrator: Frankie Sen MD #### CDIFQ #### [facility] [address] [place] [address] [place] [address] Energy Administrator: Frankie Sen MD Vibrio sp PCR NEGATIVE: No Vibrio (V. vulnificus, V, parahaemolyticus and V. cholerae) DNA Normal VIBNEG [facility] Comment on above: Result Comment: Dete cted Performed By: #### S TLPCR #### [facility] [address] [place] [address] Energy Administrator: Mickey Benson MD [facility] [address] [place] [address] [place] [address] Energy Administrator: Frankie Sen MD #### CDIFQ #### [facility] [address] [place] [address] [place] [address] Energy Administrator: Frankie Sen MD Yersinia gene PCR Negative Normal YERNEG [facility] Comment on above: Performed By: #### S TLPCR #### [facility] [address] [place] [address] Energy Administrator: Mickey Benson MD [facility] [address] [place] [address] [place] [address] Energy Administrator: Frankie Sen MD #### CDIFQ #### [facility] [address] [place] [address] [place] [place], [place] [id number] Energy Administrator: Frankie Sen MD C diff Ag + Toxinon 05-21-20 23 C diff Ag + Toxin Negative Normal NEG [facility] Comment on above: Result Comment: No C . difficile antigen and Toxin Detected. Performed By: #### S TLPCR #### [address] [address] Energy Administrator: Mickey Benson MD [facility] [address] [place] [address] [place] [address] Energy Administrator: Frankie Sen MD #### CDIFQ #### [address] [place] [id number] Energy Administrator: Frankie Sen MD Specimen Description .FECES Normal [facility] Comment on above: Performed By: #### S TLPCR #### [place] [address] [place] [address] Energy Administrator: Mickey Benson MD [address] [place] [address] Energy Administrator: Frankie Sen MD #### CDIFQ #### [facility] [address] [place] [address] [place] [id number] Energy Administrator: Frankie Sen MD Clostridium Difficile Toxin/ Antigenon 05-21-2023 C. difficile glutamate dehydrogenase and toxins A+B IA.rapid Ql (Stl) Negative NEGATIVE [facility] Comment on above: No C. difficile anti gen and Toxin Detected. Specimen Description .FECES [facility] CBC with Diffon 04-16-2023 Abs. Basophil 0.03 k/uL Normal 0.00-0.20 [facility] Comment on above: Performed By: #### L IP, CP, HCG, CDP #### [facility] [address] [place] [address] Energy Administrator: Frankie Sen MD Abs. Eosinophil <0.03 Normal 0.00-0.44 [facility] Comment on above: Performed By: #### L IP, CP, HCG, CDP #### [address] [place] [address] Energy Administrator: Frankie Sen MD Abs.Imm.Granulocyte <0.03 Normal 0.00-0.30 [facility] Comment on above: Performed By: #### L IP, CP, HCG, CDP #### [address] [place] [address] Energy Administrator: Frankie Sen MD Abs.Neutrophil (Seg) 5.50 k/uL Normal 1.50-8.10 [facility] Comment on above: Performed By: #### L IP, CP, HCG, CDP #### [address] [place], [place] [id number] Energy Administrator: Frankie Sen MD Basophils/100 WBC (Bld) 0 % Normal 0-2 [facility] Comment on above: Performed By: #### L IP, CP, HCG, CDP #### [address] [place], [place] 7000283 Energy Administrator: Frankie Sen MD Eosinophils/100 WBC (Bld) 0 % Low 1-4 [facility] Comment on above: Performed By: #### L IP, CP, HCG, CDP #### [facility] [address] [place] [address] [place] [address] Energy Administrator: Frankie Sen MD Erythrocyte distribution width (RBC) [Ratio] 12.7 % Normal 11.8-14.4 [facility] Comment on above: Performed By: #### L IP, CP, HCG, CDP #### [address] [place] [address] Energy Administrator: Frankie Sen MD Hematocrit (Bld) [Volume fraction] 39.9 % Normal 36.3-47.1 [facility] Comment on above: Performed By: #### L IP, CP, HCG, CDP #### [address] [place] [address] Energy Administrator: Frankie Sen MD Hemoglobin (Bld) [Mass/Vol] 14.0 g/dL Normal 11.9-15.1 [facility] Comment on above: Performed By: #### L IP, CP, HCG, CDP #### [address] [place] [id number] Energy Administrator: Frankie Sen MD Immature granulocytes/100 WBC (Bld) 0 % Normal 0 [facility] Comment on above: Performed By: #### L IP, CP, HCG, CDP #### [address] [place], [facility]83 Energy Administrator: Frankie Sen MD Lymphocytes (Bld) [#/Vol] 0.68 10*3/uL Low 1.10-3.70 [facility] Comment on above: Performed By: #### L IP, CP, HCG, CDP #### [address] [place] [id number] Energy Administrator: Frankie Sen MD Lymphocytes/100 WBC (Bld) 10 % Low 24-43 [facility] Comment on above: Performed By: #### L IP, CP, HCG, CDP #### [address] [place], [facility]83 Energy Administrator: Frankie Sen MD MCH (RBC) [Entitic mass] 31.0 pg Normal 25.2-33.5 [facility] Comment on above: Performed By: #### L IP, CP, HCG, CDP #### [address] [place] [id number] Energy Administrator: Frankie Sen MD MCHC (RBC) [Mass/Vol] 35.1 g/dL High 28.4-34.8 [facility] Comment on above: Performed By: #### L IP, CP, HCG, CDP #### [facility] [address] [place], [place] [id number] Energy Administrator: Frankie Sen MD MCV (RBC) [Entitic vol] 88.3 fL Normal 82.6-102.9 [facility] Comment on above: Performed By: #### L IP, CP, HCG, CDP #### [facility] [address] [place], [place] [phone] Energy Administrator: Frankie Sen MD Monocytes (Bld) [#/Vol] 0.69 10*3/uL Normal 0.10-1.20 [facility] Comment on above: Performed By: #### L IP, CP, HCG, CDP #### [facility] [address] [place] [address] [place], [place] [phone] Energy Administrator: Frankie Sen MD Monocytes/100 WBC (Bld) 10 % Normal 3-12 [facility] Comment on above: Performed By: #### L IP, CP, HCG, CDP #### [address] [place], [place] [phone] Energy Administrator: Frankie Sen MD Neutrophil (Seg) 80 % High 36-65 [facility] Comment on above: Performed By: #### L IP, CP, HCG, CDP #### [facility] [address] [place], [place] [phone] Energy Administrator: Frankie Sen MD NRBC Automated 0.0 per 100 WBC Normal 0.0 [facility] Comment on above: Performed By: #### L IP, CP, HCG, CDP #### [facility] [address] [place], [place] [phone] Energy Administrator: Frankie Sen MD Platelet mean volume (Bld) [Entitic vol] 10.3 fL Normal 8.1-13.5 [facility] Comment on above: Performed By: #### L IP, CP, HCG, CDP #### [facility] [address] [place], [place] [phone] Energy Administrator: Frankie Sen MD Platelets (Bld) [#/Vol] 159 10*3/uL Normal 138-453 [facility] Comment on above: Performed By: #### L IP, CP, HCG, CDP #### [facility] [address] [place] [address] Energy Administrator: Frankie Sen MD RBC (Bld) [#/Vol] 4.52 10*6/uL Normal 3.95-5.11 [facility] Comment on above: Performed By: #### L IP, CP, HCG, CDP #### [address] [place], [place] [id number] Energy Administrator: Frankie Sen MD WBC (Bld) [#/Vol] 6.9 10*3/uL Normal 3.5-11.3 [facility] Comment on above: Performed By: #### L IP, CP, HCG, CDP #### [facility] [address] [place], [place] [phone] Energy Administrator: Frankie Sen MD CT ABDOMEN PELVIS W [...] Ag Sin MD 04/16/23 Final result Normal [facility] Comp Metabolic Profon 2022 Albumin [Mass/Vol] 4.4 g/dL Normal 3.5-5.2 [facility] Comment on above: Performed By: #### L IP, CP, HCG, CDP #### [facility] [address] [place] [address] [place] [address] Energy Administrator: Frankie Sen MD Albumin/Glob Ratio 1.5 Normal 1.0-2.5 [facility] Comment on above: Performed By: #### L IP, CP, HCG, CDP #### [facility] [address] [place] [address] Energy Administrator: Frankie Sen MD Alkaline Phos 56 U/L Normal 35-104 [facility] Comment on above: Performed By: #### L IP, CP, HCG, CDP #### [facility] [address] [place] [address] [place] [address] Energy Administrator: Frankie Sen MD ALT [Catalytic activity/Vol] 8 U/L Normal 5-33 [facility] Comment on above: Performed By: #### L IP, CP, HCG, CDP #### [facility] [address] [place], [place] [phone] Energy Administrator: Frankie Sen MD Anion gap [Moles/Vol] 12 mmol/L Normal 9-17 [facility] Comment on above: Performed By: #### L IP, CP, HCG, CDP #### [facility] [address] [place], [place] 5366283 Energy Administrator: Frankie Sen MD AST [Catalytic activity/Vol] 15 U/L Normal <32 [facility] Comment on above: Performed By: #### L IP, CP, HCG, CDP #### [facility] [address] [place], [place] [phone] Energy Administrator: Frankie Sen MD Bilirubin [Mass/Vol] 1.4 mg/dL High 0.3-1.2 [facility] Comment on above: Performed By: #### L IP, CP, HCG, CDP #### [address] [place], [place] 1443983 Energy Administrator: Frankie Sen MD BUN/CRE Ratio 9 Normal 9-20 [facility] Comment on above: Performed By: #### L IP, CP, HCG, CDP #### [facility] [address] [place] [address] [place], [place] 9654383 Energy Administrator: Frankie Sen MD Calcium [Mass/Vol] 8.9 mg/dL Normal 8.6-10.4 [facility] Comment on above: Performed By: #### L IP, CP, HCG, CDP #### [facility] [address] [place], [place] [phone] Energy Administrator: Frankie Sen MD Chloride [Moles/Vol] 103 mmol/L Normal 98-107 [facility] Comment on above: Performed By: #### L IP, CP, HCG, CDP #### [facility] [address] [place] [address] Energy Administrator: Frankie Sen MD CO2 [Moles/Vol] 24 mmol/L Normal 20-31 [facility] Comment on above: Performed By: #### L IP, CP, HCG, CDP #### [facility] [address] [place] [address] Energy Administrator: Frankie Sen MD Creatinine [Mass/Vol] 0.7 mg/dL Normal 0.5-0.9 [facility] Comment on above: Performed By: #### L IP, CP, HCG, CDP #### [facility] [address] [place] [address] Energy Administrator: Frankie Sen MD GFR/1.73 sq M.predicted among non-blacks MDRD (S/P/Bld) [Vol rate/Area] mL/min/{1.73_m2} Normal >60 [facility] Comment on above: Result Comment: These results [...] #### L IP, CP, HCG, CDP #### [facility] [address] [place] [address] Energy Administrator: Frankie Sen MD Glucose [Mass/Vol] 100 mg/dL High 70-99 [facility] Comment on above: Performed By: #### L IP, CP, HCG, CDP #### [facility] [address] [place] [address] Energy Administrator: Frankie Sen MD Potassium [Moles/Vol] 3.7 mmol/L Normal 3.7-5.3 [facility] Comment on above: Performed By: #### L IP, CP, HCG, CDP #### [facility] [address] [place] [address] Energy Administrator: Frankie Sen MD Protein [Mass/Vol] 7.3 g/dL Normal 6.4-8.3 [facility] Comment on above: Performed By: #### L IP, CP, HCG, CDP #### [facility] [address] [place] [address] Energy Administrator: Frankie Sen MD Sodium [Moles/Vol] 139 mmol/L Normal 135-144 [facility] Comment on above: Performed By: #### L IP, CP, HCG, CDP #### [address] [place] [address] Energy Administrator: Frankie Sen MD Urea nitrogen [Mass/Vol] 6 mg/dL Normal 6-20 [facility] Comment on above: Performed By: #### L IP, CP, HCG, CDP #### [address] [place] [address] Energy Administrator: Frankie Sen MD HCG Screen, Bloodon 04-16-20 23 HCG Screen, Blood Negative Normal NEG [facility] Comment on above: Result Comment: Spec imens with hCG levels near the threshold of the test (25 mIU/mL) may give a negative or indeterminate result. In such cases, another test should be performed with a new specimen in 48-72 hours. If early is suspected clinically in this setting, correlation with quantitative serum b-hCG level is suggested. [facility] has confirmed the use of plasma for this test. This has not been cleared or approved by the U.[place]. Food and Drug Administration. The FDA has determined that such clearance is not necessary. Performed By: #### L IP, CP, HCG, CDP #### [facility] [address] [place] [address] Energy Administrator: Frankie Sen MD Lipaseon 04-16-2023 Lipase [Catalytic activity/Vol] 26 U/L Normal 13-60 [facility] Comment on above: Performed By: #### L IP, CP, HCG, CDP #### [facility] [address] [place], [place] [id number] Energy Administrator: Frankie Sen MD UA w/Reflex Cultureon 2022 Bilirubin, SemiQt,Ur SMALL Abnormal NEG [facility] Comment on above: Performed By: #### U AX, UMICAO #### [facility] [address] [place] [address] Energy Administrator: Frankie Sen MD Blood, Urine 3+ Abnormal NEG [facility] Comment on above: Performed By: #### U AX, UMICAO #### [facility] [address] [place] [address] Energy Administrator: Frankie Sen MD Clarity (U) Cloudy Abnormal CLEAR [facility] Comment on above: Performed By: #### U AX, UMICAO #### [facility] [address] [place] [address] Energy Administrator: Frankie Sen MD Color (U) Yellow Normal YEL [facility] Comment on above: Performed By: #### U AX, UMICAO #### [facility] [address] [place] [address] Energy Administrator: Frankie Sen MD Glucose Ql (U) Negative Normal NEG [facility] Comment on above: Performed By: #### U AX, UMICAO #### [facility] [address] [place], [place] [phone] Energy Administrator: Frankie Sen MD Ketones Ql (U) 1+ mg/dL Abnormal NEG [facility] Comment on above: Performed By: #### U AX, UMICAO #### [facility] [address] [place], [place] [phone] Energy Administrator: Frankie Sen MD Leukocyte esterase Test strip Ql (U) Negative Normal NEG [facility] Comment on above: Performed By: #### U AX, UMICAO #### [address] [place], [place] [id number] Energy Administrator: Frankie Sen MD Nitrite,Ur Negative Normal NEG [facility] Comment on above: Performed By: #### U AX, UMICAO #### [address] [place] [address] Energy Administrator: Frankie Sen MD PH,Ur 6.0 Normal 5.0-9.0 [facility] Comment on above: Performed By: #### U AX, UMICAO #### [address] [place], [place] [phone] Energy Administrator: Frankie Sen MD Protein Ql (U) 1+ mg/dL Abnormal NEG [facility] Comment on above: Performed By: #### U AX, UMICAO #### [address] [place] [address] Energy Administrator: Frankie Sen MD Spec. Cody,Ur 1.025 High 1.010-1.020 [facility] Comment on above: Performed By: #### U AX, UMICAO #### [address] [place], [place] [phone] Energy Administrator: Frankie Sen MD Urobilinogen,Ur Normal Normal 0.0-1.0 [facility] Comment on above: Performed By: #### U AX, UMICAO #### [address] [place] [address] Energy Administrator: Frankie Sen MD Urinalysis,Microon 3 Bacteria 2+ Abnormal NONE [facility] Comment on above: Performed By: #### U AX, UMICAO #### [address] [place], [place] [phone] Energy Administrator: Frankie Sen MD Epithelial cells LM Ql (Urine sed) 10 TO 20 Normal 0-25 [facility] Comment on above: Performed By: #### U AX, UMICAO #### [facility] [address] [place], [place] [phone] Energy Administrator: Frankie Sen MD Mucus Strands 1+ Abnormal NONE [facility] Comment on above: Performed By: #### U AX, UMICAO #### [facility] [address] [place], [place] [phone] Energy Administrator: Frankie Sen MD Other Observations MICROSCOPIC PERFORME D ON UNSPUN URINE Abnormal NREQ [facility] Comment on above: Performed By: #### U AX, UMICAO #### [facility] [address] [place], [place] 4111183 Energy Administrator: Frankie Sen MD Urine RBC's 2 TO 5 Normal 0-2 [facility] Comment on above: Performed By: #### U AX, UMICAO #### [facility] [address] [place], [place] [id number] Energy Administrator: Frankie Sen MD Urine WBC's 2 TO 5 Normal 0-5 [facility] Comment on above: Performed By: #### U AX, UMICAO #### [facility] [address] 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 Migraines try imitrex if EKG is normal f/u in 1 month EKG normal Ordered: EKG Orders: SUMAtriptan, 1 tabs, Oral, Daily, PRN, may repeat dose after 2 hours up to a maximum of 200 mg in 24 hours, X 30 days, # 9 tabs, 0 Refill(s), 04/07/23 9:10:00 EDT, Pharmacy: [facility] [id number] Medical Decision Making Chronic conditions NOT treated [...] ago Use:. Electronically signed by Aureliano LEPESarita Lien 03/08/23 11:43 EDT Normal [facility] CBC AUTO DIFFon 05-25-2020 Basophils (Bld) [#/Vol] 0.0 103/ul Normal 0.0-0.1 [facility] Comment on above: Performed By: #### C BC ####[facility] Muiagflby[address] [place], [place] [address]Gerken Erendira Basophils/100 WBC (Bld) 0.3 % Normal 0.2-2.0 [facility] Comment on above: Performed By: #### C BC ####[facility] Fkvyrqjew[address] [place], [place] [address]Gerken Erendira Eosinophils (Bld) [#/Vol] 0.1 103/ul Normal 0.0-0.7 [facility] Comment on above: Performed By: #### C BC ####[facility] Ymevdzkgkq[address] [place], [place] [address]Gerken Erendira Eosinophils/100 WBC (Bld) 1.2 % Normal 0.9-7.0 [facility] Comment on above: Performed By: #### C BC ####[facility] Ypubocdkki[address] [place], [place] [address]Gerken Erendira Erythrocyte distribution width (RBC) [Ratio] 14.1 % Normal 11.0-15.0 [facility] Comment on above: Performed By: #### C BC ####[facility] Brbuqetgf[address] [place], [place] [address]Gerken Erendira Hematocrit (Bld) [Volume fraction] 32.9 % Critically low 36.0-48.0 [facility] Comment on above: Performed By: #### C BC ####[facility] [address] [place] [address] 38184Gvwiih Erendira Hemoglobin (Bld) [Mass/Vol] 11.2 g/dL Critically low 12.0-16.0 [facility] Comment on above: Performed By: #### C BC ####[facility] [address] [place] [id number] Erendira IG # 0.09 10e3/ul Critically high 0.00-0.03 The [facility] Comment on above: Performed By: #### C BC ####[facility] Vtvkuadmht8[address] [place] [id number] Erendira IG % 0.9 % Critically high 0.0-0.5 The [facility] Comment on above: Performed By: #### C BC ####[facility] Ojsjeqwame[address] [place], [place] [address]Gerken Erendira Lymphocytes (Bld) [#/Vol] 1.3 103/ul Normal 1.2-3.8 [facility] Comment on above: Performed By: #### C BC ####[facility] Oskkty[address] [place], [place] [address]Gerken Erendira Lymphocytes/100 WBC (Bld) 13.1 % Critically low 20.5-60.0 [facility] Comment on above: Performed By: #### C BC ####[facility] Gndytlgar[address] [place], [place] [address]Gerken Erendira MANUAL DIFF REQ NO Normal [facility] Comment on above: Performed By: #### C BC ####[facility] [address] [place] [id number] Erendira MCH (RBC) [Entitic mass] 29.6 pg Normal 26.7-34.0 [facility] Comment on above: Performed By: #### C BC ####[facility] Glrmoyjvpg[address] [place], [place] [address]Gerken Erendira MCHC (RBC) [Mass/Vol] 34.0 g/dL Normal 29.9-35.2 [facility] Comment on above: Performed By: #### C BC ####[facility] [address] [place] [address] 22276Hmejrc E[place] MCV (RBC) [Entitic vol] 87.0 fL Normal 81.0-99.0 [facility] Comment on above: Performed By: #### C BC ####[facility] [address] [place] [address] 42696Vumvts E[place] Monocytes (Bld) [#/Vol] 0.9 103/ul Critically high 0.3-0.8 [facility] Comment on above: Performed By: #### C BC ####[facility] [address]jyo[address]os[address] [place] [address] 99762Owsmby [place] Monocytes/100 WBC (Bld) 9.1 % Normal 1.7-12.0 [facility] Comment on above: Performed By: #### C BC ####[facility] [address] [place] [address] 77023Jokddy Erendira Neutrophils (Bld) [#/Vol] 7.6 103/ul Critically high 1.4-6.5 [facility] Comment on above: Performed By: #### C BC ####[facility] Mct[address]ep[address]vf[address] [place] [address] 12076Qmpbrl Erendira Neutrophils/100 WBC (Bld) 75.4 % Critically high 43.0-75.0 [facility] Comment on above: Performed By: #### C BC ####[facility] Rsieibsddn[address] [place] [address] 86788Novlyn E[place] Platelet mean volume (Bld) [Entitic vol] 10.1 fL Normal 9.5-13.5 [facility] Comment on above: Performed By: #### C BC ####[facility] [address]iswct[address] [place] [address] 05399Sthiuf [place] Platelets (Bld) [#/Vol] 200 103/ul Normal 150-450 [facility] Comment on above: Performed By: #### C BC ####[facility] [address]by[address] [place] [address] 30331Bsjifk E[place] RBC (Bld) [#/Vol] 3.78 106/ul Critically low 4.20-5.40 [facility] Comment on above: Performed By: #### C BC ####[facility] Upjcwhpmyy1273 [address] [place] WBC (Bld) [#/Vol] 10.1 103/ul Normal 4.0-11.0 The [facility] Comment on above: Performed By: #### C BC ####[facility] Zhjrepoqiw2318 [address] DRUG SCREEN RAPID (URINE)on 05-25-2020 AMP Negative Normal NEGATIVE [facility] Comment on above: Performed By: #### D RUGRPD ####[facility] Nfkt[address] [place], [place] [address] BAR Negative Normal NEGATIVE [facility] Comment on above: Performed By: #### D RUGRPD ####[facility] [address] [place] [address] BUP Negative Normal NEGATIVE [facility] Comment on above: Performed By: #### D RUGRPD ####[facility] B[address]ewz[address] [place] [address] BZO Negative Normal NEGATIVE [facility] Comment on above: Performed By: #### D RUGRPD ####[facility] Atyftemhnr[address] [place] [address] JAYLA Negative Normal NEGATIVE [facility] Comment on above: Performed By: #### D RUGRPD ####[facility] Mvlgednisq[address] [place] [address] CUT-OFFS SEE BELOW Normal [facility] Comment on above: Result Comment: AMP [...] Antidepressants): 300 ng/mL Performed By: #### Roque RUGRPD ####[facility] Ndhmgbwarw9614 [address] DRUG CUT HEADER DRUG CLASS TEST SYSTEM CUT-OFF CONCENTRATIONS ARE FOLLOWS: Normal [facility] Comment on above: Performed By: #### Roque RUGRPD ####[facility] Pjnnbeuszd6181 [address] [place] mAMP Negative Normal NEGATIVE [facility] Comment on above: Performed By: #### Roque RUGRPD ####[facility] Dhfnhngqyz5718 [address] [place] MTD Negative Normal NEGATIVE [facility] Comment on above: Performed By: #### Roque ALVAREZRPD ####[facility] [address] [place] [address] [place] OPI Negative Normal NEGATIVE [facility] Comment on above: Performed By: #### Roque RUGRPD ####[facility] Q[address] [place] [address] [place] OXY Negative Normal NEGATIVE [facility] Comment on above: Performed By: #### Roque ALVAREZRPD ####[facility] [address] [place] [address] [place] PCP Negative Normal NEGATIVE [facility] Comment on above: Performed By: #### Roque ALVAREZRPD ####[facility] Utovtxovfi3570 [address] [place] PPX Negative Normal NEGATIVE [facility] Comment on above: Performed By: #### Roque RUGRPD ####[facility] Hxmmcdupoa6650 [address] [place] TCA Negative Normal NEGATIVE [facility] Comment on above: Performed By: #### Roque RUGRPD ####[facility] Yconxopina2388 [address] [place] THC Negative Normal NEGATIVE [facility] Comment on above: Performed By: #### D RUGRPD ####[facility] Phunthzuxa[address] [place] [id number] Erendira TYPE AND SCREENon 05-25-2020 TYPE AND SCREEN Negative Normal [facility] Comment on above: Performed By: #### T NS ####[facility] Eijuzicozg3150 [address] [place] COVID-19 PCRon 05-20-2020 SARS-CoV-2, EMILE Not Detected Normal Not Detected The [facility] Comment on above: Result Comment: This nucleic acid amplification test was developed and its perfomance characteristics determined by [employer]. Nucleic acid amplification tests include PCR and [...] this assay. Performed By: #### C VDPCR ####[facility] Fptckjdzud7816 [address] CHLAMYDIA/GONOCOCCUS EMILE (SW AB/URINE/PAPon 05-06-2020 Chlamydia trachomatis, EMILE Negative Normal Negative [facility] Comment on above: Performed By: #### C T/NGNA ####[facility] Ggadbdfeii6946 [address] Neisseria gonorrhoeae, EMILE Negative Normal Negative [facility] Comment on above: Performed By: #### C T/NGNA ####[facility] Immmcijvkp8645 [address] GROUP B STREP CULTUREon 04-17 S. agalactiae Ag Ql (Unsp spec) Culture Observations: Negative for Group B Streptococcus Normal [facility] Comment on above: Performed By: #### G BSCX ####[facility] Uzhnezvpwu[address] [place] [id number] Erendira CBC AUTO DIFFon 03-04-2020 Basophils (Bld) [#/Vol] 0.0 103/ul Normal 0.0-0.1 [facility] Comment on above: Performed By: #### C BC ####[facility] R[address]cf[address] [place] [address] Erend[place] Basophils/100 WBC (Bld) 0.4 % Normal 0.2-2.0 [facility] Comment on above: Performed By: #### C BC ####[facility] Y[address]gs[address] [place] [address] [place] Eosinophils (Bld) [#/Vol] 0.1 103/ul Normal 0.0-0.7 [facility] Comment on above: Performed By: #### C BC ####[facility] [address]vd[address] [place] [address] [place] Eosinophils/100 WBC (Bld) 1.0 % Normal 0.9-7.0 [facility] Comment on above: Performed By: #### C BC ####[facility] Jsdagonkkc[address] [place] [address] [place] Erythrocyte distribution width (RBC) [Ratio] 13.1 % Normal 11.0-15.0 [facility] Comment on above: Performed By: #### C BC ####[facility] Uqutvluqqr[address] [place], [place] [address]Gerken Erendira Hematocrit (Bld) [Volume fraction] 34.5 % Critically low 36.0-48.0 [facility] Comment on above: Performed By: #### C BC ####[facility] [address]zs[address] [place] [address] [place] Hemoglobin (Bld) [Mass/Vol] 11.6 g/dL Critically low 12.0-16.0 [facility] Comment on above: Performed By: #### C BC ####[facility] Ejzsxnqp[address] [place] [id number] Krishna IG # 0.09 10e3/ul Critically high 0.00-0.03 [facility] Comment on above: Performed By: #### C BC ####[facility] Ujyarklech[address] [place] IG % 0.9 % Critically high 0.0-0.5 [facility] Comment on above: Performed By: #### C BC ####[facility] Bieinqcidg2739 [address] [place] Lymphocytes (Bld) [#/Vol] 1.2 103/ul Normal 1.2-3.8 [facility] Comment on above: Performed By: #### C BC ####[facility] Gtmacuwsza5514 [address] Krishna Lymphocytes/100 WBC (Bld) 12.1 % Critically low 20.5-60.0 [facility] Comment on above: Performed By: #### C BC ####[facility] Swplibazzw2383 [address] [place] MANUAL DIFF REQ NO Normal [facility] Comment on above: Performed By: #### C BC ####[facility] Ltupguygjt1044 [address] [place] MCH (RBC) [Entitic mass] 30.7 pg Normal 26.7-34.0 [facility] Comment on above: Performed By: #### C BC ####[facility] Xczdivdjjx3272 [address] [place] MCHC (RBC) [Mass/Vol] 33.6 g/dL Normal 29.9-35.2 [facility] Comment on above: Performed By: #### C BC ####[facility] Ilsfmptonb3370 [address] [place] MCV (RBC) [Entitic vol] 91.3 fL Normal 81.0-99.0 [facility] Comment on above: Performed By: #### C BC ####[facility] Knqmuboaez2688 [place], [place] [address]Naecbf [place] Monocytes (Bld) [#/Vol] 0.7 103/ul Normal 0.3-0.8 [facility] Comment on above: Performed By: #### C BC ####[facility] Zzrxqaodap[address] [place], [place] [address]Gerken Erendira Monocytes/100 WBC (Bld) 6.8 % Normal 1.7-12.0 [facility] Comment on above: Performed By: #### C BC ####[facility] [address] [place] [address] [address] [place] Neutrophils (Bld) [#/Vol] 7.8 103/ul Critically high 1.4-6.5 [facility] Comment on above: Performed By: #### C BC ####[facility] Illxhhchbo[address] [place], [place] [address]Gerken Erendira Neutrophils/100 WBC (Bld) 78.8 % Critically high 43.0-75.0 [facility] Comment on above: Performed By: #### C BC ####[facility] Feglkwyzbw[address] [place], [place] [address]Gerken Erendira Platelet mean volume (Bld) [Entitic vol] 10.0 fL Normal 9.5-13.5 [facility] Comment on above: Performed By: #### C BC ####[facility] [address] [place] [address] 940[address]Dcrqzh [place] Platelets (Bld) [#/Vol] 163 103/ul Normal 150-450 [facility] Comment on above: Performed By: #### C BC ####[facility] Giixoxivqx[address] [place], [place] [address]Gerken Erendira RBC (Bld) [#/Vol] 3.78 106/ul Critically low 4.20-5.40 [facility] Comment on above: Performed By: #### C BC ####[facility] [address]ve[address] [place] [address] 38371Sbqtkm [place] WBC (Bld) [#/Vol] 9.9 103/ul Normal 4.0-11.0 [facility] Comment on above: Performed By: #### C BC ####[facility] Kw[address] [place] [id number] Krishna GLUCOSE - 1HRon 03-04-2020 Glucose [Mass/Vol] 121 mg/dL Critically high 74-106 T [facility] Comment on above: Performed By: #### G LU1HR ####[facility] Vgdagikbbu8432 [address] [place] CHLAMYDIA/GONOCOCCUS EMILE (SW AB/URINE/PAPon 01-28-2020 Chlamydia trachomatis, EMILE Negative Normal Negative [facility] Comment on above: Performed By: #### C T/NGNA ####[facility] Jctermiwyx54[address] [place] Neisseria gonorrhoeae, EMILE Negative Normal Negative [facility] Comment on above: Performed By: #### C T/NGNA ####[facility] Ydklgxskec[address] [place] TRICHAMONAS VAGINALIS. NAAon 01-28-2020 Trich vag by EMILE Negative Normal Negative [facility] Comment on above: Performed By: #### T RICHNA ####[facility] [address]wr[address] [place] [id number] [place] US PREG ANATOMY SINGLEon US PREG ANATOMY [...] by: LINDA CAICEDO Date: 2020-01-09 14:28 Normal [facility] PAP ACOG PANEL 3: 21 to 29on 12-30-2019 Age Gdln ACOG Testing 21-29 Normal [facility] Comment on above: Performed By: #### A ROMY #### [facility] [address] [place], [place] [address] Helio Krishna Chlamydia, Nuc. Acid Amp Positive Abnormal Negative [facility] Comment on above: Result Comment: . Performed at: =G Performed By: #### A ROMY #### [facility] [address] [place], [place] [address] Helio Krishna DIAGNOSIS: Comment Normal [facility] Comment on above: Result Comment: NEGA TIVE FOR INTRAEPITHELIAL LESION OR MALIGNANCY. THIS SPECIMEN WAS RESCREENED PART OF OUR HIGHWAY RESEARCH ENGINEER PROGRAM. Performed at: WB Performed By: #### A ROMY #### [facility] [address] [place] [address] Helio Krishna Gonococcus, Nuc. Acid Amp Negative Normal Negative [facility] Comment on above: Result Comment: Perf ormed at: =G Performed By: #### A ROMY #### [facility] [address] [place] [address] Helio Krishna Methodology: Comment Normal [facility] Comment on above: Result Comment: This liquid based ThinPrep(R) pap test was screened with the use of an image guided system. Performed at: WB Performed By: #### A ROMY #### [facility] [address] [place] [address] Helio Krishna Note: Comment Normal [facility] Comment on above: Result Comment: The Pap smear is a screening test designed to aid in the detection of premalignant and malignant conditions of the uterine cervix. It is not a diagnostic procedure and should not be used as the sole means of detecting cervical cancer. Both false-positive and false-negative reports do occur. . Performed at: WB Performed By: #### A ROMY #### [facility] [address] [place] [address] Helio Krishna Performed by: Comment Normal [facility] Comment on above: Result Comment: Cindy Taylor, Sports Reporter (ASCP) Performed at: WB Performed By: #### A ROMY #### [facility] [address] [place] [address] Helio Krishna QC reviewed by: Comment Normal [facility] Comment on above: Result Comment: Shoshana Stevens, Supervisory Sports Reporter (ASCP) Performed at: WB Performed By: #### A ROMY #### [facility] [address] [place] [address] Helio Krishna Reflex Criteria: Comment Normal [facility] Comment on above: Result Comment: The HPV DNA reflex criteria were not met with this specimen result therefore, no HPV testing was performed. . Performed at: WB Performed By: #### A ROMY #### [facility] [address] [place] [address] Helio Erendira Specimen adequacy: Comment Normal [facility] Comment on above: Result Comment: Sati sfactory for evaluation. Endocervical and/or squamous metaplastic cells (endocervical component) are present. Performed at: WB Performed By: #### A ROMY #### [facility] [address] [place] [address] Helio Erendira . . Normal [facility] Comment on above: Result Comment: Perf ormed at: WB Performed By: #### A ROMY #### [facility] [address] [place] [address] Helio Erendira HGB(ELECTP) FRACTION PROFILE on 11-24-2019 Hemoglobin (Bld) [Mass/Vol] 97.3 % Normal 96.4-98.8 [facility] Comment on above: Performed By: #### A ROMY #### [facility] [address] [place] [address] Helio Erendira Hgb A2 2.7 % Normal 1.8-3.2 [facility] Comment on above: Performed By: #### A ROMY #### [facility] [address] [place] [address] Helio Erendira Hgb C 0.0 % Normal 0.0 [facility] Comment on above: Performed By: #### A ROMY #### [facility] [address] [place] [address] Helio Erendira Hgb F 0.0 % Normal 0.0-2.0 [facility] Comment on above: Performed By: #### A ROMY #### [facility] [address] [place] [address] Helio Erendira Hgb S 0.0 % Normal 0.0 [facility] Comment on above: Performed By: #### A ROMY #### [facility] [address] [place] [address] Helio Erendira Hgb Solubility Negative Normal Negative [facility] Comment on above: Performed By: #### A ROMY #### [facility] [address] [place] [address] Helio Krishna Hgb Variant Normal [facility] Comment on above: Performed By: #### A ROMY #### [facility] [address] [place] [address] Helio Krishna Interpretation Comment Normal [facility] Comment on above: Result Comment: Norm al adult hemoglobin present. Performed By: #### A ROMY #### [facility] [address] [place] [address] Helio Krishna HEP B SURFACE ANTIGEN SCREEN on 11-22-2019 HBsAg Screen Negative Normal Negative [facility] Comment on above: Performed By: #### A ROMY #### [facility] [address] [place] [address] Hleio Krishna HEPATITIIS C VIRUS ANTIBODYo n 11-22-2019 Hep C Virus Ab <0.1 Normal 0.0-0.9 [facility] Comment on above: Result Comment: Nega tive: < 0.8 Indeterminate: 0.8 - 0.9 Positive: > 0.9 . The CDC recommends that a positive HCV antibody result be followed up with a HCV Nucleic Acid Amplification test (098861). Performed By: #### H #### [facility] [address] [place] [address] Helio Krishna HIV 1 AND 2 WITH REFLEXon HIV Screen 4th Generation wRfx Non Reactive Normal Non Reactive [facility] Comment on above: Performed By: #### A ROMY #### [facility] [address] [place] [address] Helio Krishna RPR QUANTon 11-22-2019 Rapid Plasma Reagin, Quant Non Reactive Normal NonRea<1:1 [facility] Comment on above: Performed By: #### A ROMY #### [facility] [address] [place] [address] Helio Krishna RUBELLA AB IGGon 11-22-2019 Rubella Antibodies, IgG 1.49 index Normal Immune >0.99 [facility] Comment on above: Result Comment: Non- immune <0.90 Equivocal 0.90 - 0.99 Immune >0.99 Performed By: #### A ROMY #### [facility] [address] [place], [place] [id number] Helio Krishna VARICELLA IGG ABon 0 Varicella Zoster IgG <135 Critically low Immune >165 [facility] Comment on above: Result Comment: Nega tive <135 Equivocal 135 - 165 Positive >165 A positive result generally indicates exposure to the pathogen or administration of specific immunoglobulins, but it is not indication of active infection or stage of disease. Performed By: #### A ROMY #### [facility] [address] [place], [place] [id number] Helio Krishna CBC AUTO DIFFon 11-21-2019 Basophils (Bld) [#/Vol] 0.0 103/ul Normal 0.0-0.1 [facility] Comment on above: Performed By: #### C BC #### [facility] [address] [place], [place] [id number] Helio Krishna Basophils/100 WBC (Bld) 0.3 % Normal 0.2-2.0 [facility] Comment on above: Performed By: #### C BC #### [facility] [address] [place], [place] [id number] Helio Erendira Eosinophils (Bld) [#/Vol] 0.1 103/ul Normal 0.0-0.7 [facility] Comment on above: Performed By: #### C BC #### [facility] [address] [place], [place] [id number] Helio Guen Eosinophils/100 WBC (Bld) 0.8 % Critically low 0.9-7.0 [facility] Comment on above: Performed By: #### C BC #### [facility] [address] [place], [place] [id number] Helio Erendira Erythrocyte distribution width (RBC) [Ratio] 12.8 % Normal 11.0-15.0 [facility] Comment on above: Performed By: #### C BC #### [facility] [address] [place], [place] [id number] Helio Erendira Hematocrit (Bld) [Volume fraction] 36.9 % Normal 36.0-48.0 [facility] Comment on above: Performed By: #### C BC #### [facility] [address] [place], [place] [id number] Helio Erendira Hemoglobin (Bld) [Mass/Vol] 12.7 g/dL Normal 12.0-16.0 [facility] Comment on above: Performed By: #### C BC #### [facility] [address] [place], [place] [id number] Helio Erendira IG # 0.05 10e3/ul Critically high 0.00-0.03 [facility] Comment on above: Performed By: #### C BC #### [facility] [address] [place] [address] Helio Erendira IG % 0.6 % Critically high 0.0-0.5 [facility] Comment on above: Performed By: #### C BC #### [facility] [address] [place] [address] Helio Erendira Lymphocytes (Bld) [#/Vol] 1.2 103/ul Normal 1.2-3.8 [facility] Comment on above: Performed By: #### C BC #### [facility] [address] [place], [place] [id number] Helio Erendira Lymphocytes/100 WBC (Bld) 13.6 % Critically low 20.5-60.0 [facility] Comment on above: Performed By: #### C BC #### [facility] [address] [place], [place] [id number] Helio Erendira MANUAL DIFF REQ NO Normal [facility] Comment on above: Performed By: #### C BC #### [facility] [address] [place], [place] [id number] Helio Erendira MCH (RBC) [Entitic mass] 30.0 pg Normal 26.7-34.0 [facility] Comment on above: Performed By: #### C BC #### [facility] [address] [place], [place] [id number] Helio Erendira MCHC (RBC) [Mass/Vol] 34.4 g/dL Normal 29.9-35.2 [facility] Comment on above: Performed By: #### C BC #### [facility] [address] [id number] Helio Erendira MCV (RBC) [Entitic vol] 87.2 fL Normal 81.0-99.0 [facility] Comment on above: Performed By: #### C BC #### [facility] [address] [place], [place] [id number] Helio Erendira Monocytes (Bld) [#/Vol] 0.6 103/ul Normal 0.3-0.8 [facility] Comment on above: Performed By: #### C BC #### [facility] [address] [place], [place] [id number] Helio Erendira Monocytes/100 WBC (Bld) 6.7 % Normal 1.7-12.0 [facility] Comment on above: Performed By: #### C BC #### [facility] [address] [place], [place] [address] Helio Erendira Neutrophils (Bld) [#/Vol] 6.9 103/ul Critically high 1.4-6.5 [facility] Comment on above: Performed By: #### C BC #### [facility] [address] [place], [place] [address] Helio Erendira Neutrophils/100 WBC (Bld) 78.0 % Critically high 43.0-75.0 [facility] Comment on above: Performed By: #### C BC #### [facility] [address] [place], [place] [address] Helio Erendira Platelet mean volume (Bld) [Entitic vol] 9.8 fL Normal 9.5-13.5 [facility] Comment on above: Performed By: #### C BC #### [facility] [address] [place], [place] [id number] Helio Erendira Platelets (Bld) [#/Vol] 200 103/ul Normal 150-450 [facility] Comment on above: Performed By: #### C BC #### [facility] [address] [place], [place] [id number] Helio Erendira RBC (Bld) [#/Vol] 4.23 106/ul Normal 4.20-5.40 [facility] Comment on above: Performed By: #### C BC #### [facility] [address] [place] [address] Helioari Krishna WBC (Bld) [#/Vol] 8.8 103/ul Normal 4.0-11.0 [facility] Comment on above: Performed By: #### C BC #### [facility] [address] [place] [address] Helio Erendira CULTURE URINEon 11-21-2019 CULTURE URINE Culture Observations : No growth Normal [facility] Comment on above: Performed By: #### A ROMY #### [facility] [address] [place] [address] Helioari Krishna DRUG SCREEN RAPID (URINE)on 11-21-2019 AMP Negative Normal NEGATIVE [facility] Comment on above: Performed By: #### D CHEMA UAMIC #### [facility] [address] [place] [address] Helio Erendira BAR Negative Normal NEGATIVE [facility] Comment on above: Performed By: #### D CHEMA, UAMIC #### [facility] [address] [place] [address] Helio Erendira BUP Negative Normal NEGATIVE [facility] Comment on above: Performed By: #### D CHEMA, UAMIC #### [facility] [address] [place] [address] Helio Erendira BZO Negative Normal NEGATIVE [facility] Comment on above: Performed By: #### D CHEMA, UAMIC #### [facility] [address] [place] [address] Helio Erendira JAYLA Negative Normal NEGATIVE [facility] Comment on above: Performed By: #### D CHEMA, UAMIC #### [facility] [address] [place] [address] Helio Erendira CUT-OFFS SEE BELOW Normal [facility] Comment on above: Result Comment: AMP [...] Antidepressants): 300 ng/mL Performed By: #### D CHEMA, UAMIC #### [facility] [address] [place] [address] DRUG CUT HEADER DRUG CLASS TEST SYSTEM CUT-OFF CONCENTRATIONS ARE FOLLOWS: Normal [facility] Comment on above: Performed By: #### Roque BEAR, UAMIC #### [facility] [address] [place] [address] Helio Erendira mAMP Negative Normal NEGATIVE [facility] Comment on above: Performed By: #### D CHEMA, UAMIC #### [facility] [address] [place] [address] Helio Erendira MTD Negative Normal NEGATIVE [facility] Comment on above: Performed By: #### D CHEMA, UAMIC #### [facility] [address] [place] [address] Helio Erendira OPI Negative Normal NEGATIVE [facility] Comment on above: Performed By: #### Roque BEAR, UAMIC #### [facility] [address] [place] [address] Helio Erendira OXY Negative Normal NEGATIVE [facility] Comment on above: Performed By: #### D CHEMA, UAMIC #### [facility] [address] [place] [address] Helio Erendira PCP Negative Normal NEGATIVE [facility] Comment on above: Performed By: #### D CHEMA, UAMIC #### [facility] [address] [place] [address] Helio Erendira PPX Negative Normal NEGATIVE [facility] Comment on above: Performed By: #### D CHEMA, UAMIC #### [facility] [address] [place] [address] Heliorai Krishna TCA Negative Normal NEGATIVE [facility] Comment on above: Performed By: #### D CHEMA, UAMIC #### [facility] [address] [place], [place] [id number] Helio Krishna THC Negative Normal NEGATIVE [facility] Comment on above: Performed By: #### D CHEMA UAMIC #### [facility] [address] [place], [place] [address] Helio Krishna GLYCOHEMOGLOBIN A1Con 2019 Glucose [Mass/Vol] 94 mg/dL Normal [facility] Comment on above: Performed By: #### A 1C #### [facility] [address] [place] [address] Helio Krishna HbA1c (Bld) [Mass fraction] 4.9 % Normal <=6.0 [facility] Comment on above: Performed By: #### A 1C #### [facility] [address] [place] [address] Helio Krishna PREG QUANT HCGon 11-21-2019 HCG QUANT 39476.00 mIU/mL Normal [facility] Comment on above: Performed By: #### P REGQNT #### [facility] [address] [place] [address] Helio Krishna HCG RANGE SEE BELOW Normal [facility] Comment on above: Result Comment: 5-50 0-1 WEEK 40-300 1-2 WEEKS 100-1,000 2-3 WEEKS 500-6,000 3-4 WEEKS 5,000-200,000 1-2 MONTHS 10,000-100,000 2-3 MONTHS 3,000-50,000 2ND TRIMESTER 1,000-50,000 3RD TRIMESTER Performed By: #### P REGQNT #### [facility] [address] [place] [address] Helio Erendira TYPE AND SCREENon 11-21-2019 TYPE AND SCREEN Negative Normal [facility] Comment on above: Performed By: #### T NS #### [facility] [address] [place] [address] Helio Erendira UA RANDOM W/MICROSCOPICon Bacteria LM.HPF (Urine sed) [#/Area] TRACE Normal NONE SEEN [facility] Comment on above: Performed By: #### D CHEMA UAMIC #### [facility] [address] [place] [address] Helio Erendira Bilirubin [Mass/Vol] Negative Normal NEGATIVE [facility] Comment on above: Performed By: #### Roque BEAR UAMIC #### [facility] [address] [place] [address] Helio Erendira BLOOD Negative Normal NEGATIVE [facility] Comment on above: Performed By: #### D CHEMA UAMIC #### [facility] [address] [place] [address] Helio Erendira CAST NONE SEEN Normal NONE SEEN [facility] Comment on above: Performed By: #### Roque BEAR UAMIC #### [facility] [address] [place] [address] Helio Erendira Clarity (U) CLEAR Normal [facility] Comment on above: Performed By: #### Roque BEAR UAMIC #### [facility] [address] [place] [address] Helio Erendira Color (U) LT. YELLOW Normal YELLOW [facility] Comment on above: Performed By: #### Roque BEAR UAMIC #### [facility] [address] [place] [address] Helio Erendira Crystals LM Nom (Urine sed) NONE SEEN Normal NONE SEEN [facility] Comment on above: Performed By: #### D CHEMA UAMIC #### [facility] [address] [place] [address] Helio Erendira Epithelial cells LM.HPF (Urine sed) [#/Area] RARE Normal [facility] Comment on above: Performed By: #### D CHEMA, UAMIC #### [facility] [address] [place] [address] Helio Erendira Glucose [Mass/Vol] Negative Normal NEGATIVE [facility] Comment on above: Performed By: #### D CHEMA UAMIC #### [facility] [address] [id number] Helio Erendira Ketones Ql (U) Negative Normal NEGATIVE [facility] Comment on above: Performed By: #### D CHEMA UAMIC #### [facility] [address] [place], [place] [address] Helio Erendira MUCOUS NONE SEEN Normal NONE SEEN [facility] Comment on above: Performed By: #### D CHEMA UAMIC #### [facility] [address] [place], [place] [id number] Helio Erendira Nitrite Ql (U) Negative Normal NEGATIVE [facility] Comment on above: Performed By: #### D CHEMA UAMIC #### [facility] [address] [place] [address] Helio Erendira pH (Bld) 7.0 Normal 5-9 [facility] Comment on above: Performed By: #### D CHEMA UAMIC #### [facility] [address] [place] [address] Helio Erendira Protein [Mass/Vol] Negative Normal [facility] Comment on above: Performed By: #### D CHEMA UAMIC #### [facility] [address] [place], [place] [address] Helio Erendira RBC (Bld) [#/Vol] NONE SEEN Normal 0-2 [facility] Comment on above: Performed By: #### D CHEMA UAMIC #### [facility] [address] [place], [place] [address] Helio Erendira SPEC GRAVITY 1.010 Normal 1.005-<=1.025 [facility] Comment on above: Performed By: #### D CHEMA UAMIC #### [facility] [address] [place], [place] [address] Helio Erendira Urobilinogen Qn (U) 0.2 EU/dl Normal [facility] Comment on above: Performed By: #### D CHEMA UAMIC #### [facility] [address] [place], [place] [address] Helio Erendira WBC (Bld) [#/Vol] SMALL Normal NEGATIVE [facility] Comment on above: Performed By: #### D BRANDON BEARMIC #### [facility] [address] [place], [place] [address] Helio Krishna WBC (Bld) [#/Vol] 2-5 Normal NONE SEEN [facility] Comment on above: Performed By: #### D CHEMA UAMIC #### [facility] [address] [id number] Helio Krishna US PREG <14 WKSon 11-05-2019 US PREG <14 WKS Patient: YAKELIN MELGOZA Exam Date: 11/05/2019 : 1995 Gender:F Ordering : DR. RAMONA JIMÉNEZ . Admission #: [id number] Family : Order #: [id number] CLICK HERE TO VIEW EXAM RADIOLOGY REPORT [...] M.D. on 11/06/2019 at 14:27 Normal [facility] ABO AND RH TYPEon 10-28-2019 ABO and Rh group Nom (Bld) ABO Rh Typing A Rh Positive Normal [facility] Comment on above: Performed By: #### A BORH #### [facility] [address] [id number] Helio Krishna PREG QUANT HCGon 10-28-2019 HCG QUANT 98494.00 mIU/mL Normal [facility] Comment on above: Result Comment: Veri fied by dilution Performed By: #### P REGQNT #### [facility] [address] [place], [place] [address] Helio Erendira HCG RANGE SEE BELOW Normal [facility] Comment on above: Result Comment: 5-50 0-1 WEEK 40-300 1-2 WEEKS 100-1,000 2-3 WEEKS 500-6,000 3-4 WEEKS 5,000-200,000 1-2 MONTHS 10,000-100,000 2-3 MONTHS 3,000-50,000 2ND TRIMESTER 1,000-50,000 3RD TRIMESTER Performed By: #### P REGQNT #### [facility] [address] [place], [place] [address] Helio Erendira Vital Signs Date Time Vital Sign Value Performing Clinician Faci lity 09-25-2023 13:12-0500 Body height 157.5 cm [facility] 09-25-2023 13:12-0500 Body mass index (BMI) [Ratio] 28.72 kg/m2 [facility] 09-25-2023 13:12-0500 Body weight 71.22 kg [facility] 09-25-2023 13:12-0500 Diastolic blood pressure 86 mm[Hg] [facility] 09-25-2023 13:12-0500 Systolic blood pressure 116 mm[Hg] [facility] Encounters Encounter Date Encounter Type Care Provider Facility Start: 06-10-2024 End: 06-10-2024 ambulatory MONICO GM Not Available Start: 06-03-2024 End: 06-03-2024 ambulatory SARITA ELIO Not Available Start: 05-27-2024 End: 05-27-2024 ambulatory MONICO GM Not Available Start: 05-13-2024 End: 05-13-2024 ambulatory SARITA ELIO Not Available Start: 04-29-2024 End: 04-29-2024 ambulatory MONICO GM Not Available Start: 04-15-2024 End: 04-15-2024 ambulatory SARITA ELIO Not Available Start: 03-31-2024 End: 03-31-2024 ambulatory MONICO GM Not Available Start: 03-03-2024 End: 03-03-2024 ambulatory MONICO GM Not Available Start: 02-05-2024 End: 02-05-2024 ambulatory SARITA BALLARD Not Available Start: 01-08-2024 End: 01-08-2024 ambulatory MONICO GM Not Available Start: 12-13-2023 End: 12-13-2023 ambulatory MONICO GM Not Available Start: 09-25-2023 End: 09-25-2023 ambulatory SARITA Costello [facility] Start: 09-25-2023 End: 09-25-2023 Office outpatient new 30 minutes [facility] Ob Algologist [facility] [place] Comment on above: Encounter for IUD re moval (Primary Dx) Start: 05-21-2023 End: 05-22-2023 ambulatory SAR[facility]A [facility] Start: 05-21-2023 End: 05-21-2023 Subsequent hospital visit by physician Sarita Bedoya APRN - ENVIRONMENTAL QUALITY ANALYST Work Phone: [facility] Start: 04-25-2023 ambulatory Sarita sorto LEGAL COORDINATOR-FEED MIXER HELPER Facility:[facility] Start: 04-16-2023 End: 04-17-2023 ambulatory Sarita Bedoya LEGAL COORDINATOR-FEED MIXER HELPER Facility:[facility] Start: 04-16-2023 End: 04-16-2023 [facility] Start: 03-08-2023 End: 03-09-2023 ambulatory Sarita Bedoya LEGAL COORDINATOR-FEED MIXER HELPER Facility:[facility] Start: 05-25-2020 End: 05-26-2020 Evaluation and management of inpatient RAMONA JIMÉNEZ Facility:[facility] Start: 05-18-2020 End: 05-19-2020 Patient encounter procedure RAMONA JIMÉNEZ Facility:[facility] Start: 05-03-2020 End: 05-03-2020 Patient encounter procedure RAMONA JIMÉNEZ Facility:[facility] Start: 03-04-2020 End: 03-05-2020 Patient encounter [...] JIMÉNEZ Facility:[facility] Start: 05-16-2016 End: 05-16-2016 Ambulatory Ebelechukw Erickson Farzadrichard Facility:[facility] Procedures Date Procedure Procedure Detail Performing Clinician Start: 05-21-2023 Toxin/antitoxin assa y tissue culture Sarita Bedoya LEGAL COORDINATOR - ENVIRONMENTAL QUALITY ANALYST Work Phone: Start: 05-26-2020 Delivery of Products [...] Td Vaccines (3 - Td or Tdap) [facility] Start: 09-23-2032 DTaP/Tdap/Td vaccine (3 - Td or Tdap) DTaP/Tdap/Td vaccine (3 - Td or Tdap) [facility] Start: 09-25-2024 Adult BMI Screening Adult BMI Screen ing [facility] Start: 09-25-2024 Tobacco Screening Tobacco Screening [facility] Start: 05-18-2023 Influenza vaccination Influenza Vacc ine [facility] Start: 04-17-2023 Influenza vaccination Flu vaccine (# 1) [facility] Start: 12-04-2016 Screening for malign ant neoplasm of cervix Pap smear [facility] Start: 12-04-2013 Adult BMI Follow Up Plan Adult BMI Follow Up Plan [facility] Start: 12-04-2013 Hepatitis C screening Hepatitis C sc reen [facility] Start: 12-04-2010 HIV screening HIV screen [facility] Start: 2007 Depression Screen Depression Screen [facility] Start: 2007 Depression Screening Depression Scre carol ann [facility] Start: 12-04-1996 Varicella vaccine (1 of 2 - 2-dose childhood series) Varicella vaccine (1 of 2 - 2-dose childhood series) [facility] Start: 06-06-1996 COVID-19 Vaccine (#1) COVID-19 Vacci ne (#1) [facility] End: 05-21-2023 Gastrointestinal Panel, Molecular [facility] Work Phone: Comment on above: Once for 1 Occurrenc es starting 05/21/2023 until 05/21/2023 End: 05-21-2023 O&P PANEL (TRAVEL ASSOCIATED) #1 [facility] Comment on above: Once for 1 Occurrenc es starting 05/21/2023 until 05/21/2023 Immunizations Immunization Date Immunization Notes Care Provider Fa perty 09-23-2022 tetanus toxoid, redu angelina diphtheria toxoid, and acellular pertussis vaccine, adsorbed Pwsc Algologist [facility] Payers Date Payer Category Payer Unknown 2016 Private Health Insurance [id number] 1995 Unknown [id number] 2.16.84 0.1.116266.3.579.2.593 1995 Unknown [id number] 2.16.84 0.1.448760.3.579.2.593 1995 Unknown [id number] 2.16.84 0.1.344641.3.579.2.593 1995 Unknown [id number] 2.16.84 0.1.846873.3.579.2.593 1995 Unknown [id number] 2.16.84 0.1.640329.3.579.2.593 1995 Unknown [id number] 2.16.84 0.1.206176.3.579.2.593 1995 Unknown [id number] 2.16.84 0.1.083653.3.579.2.593 1995 Unknown [id number] 2.16.84 0.1.675389.3.579.2.593 1995 Unknown [id number] 2.16.84 0.1.776143.3.579.2.593 1995 Unknown [id number] 2.16.84 0.1.386456.3.579.2.593 1995 Unknown [id number] 2.16.84 0.1.687132.3.579.2.593 1995 Unknown [id number] 2.16. 840.1.393996.3.579.2.196 1995 Unknown [id number] 2.16. 840.1.152999.3.579.2.196 1995 Unknown [id number] 2.16. 840.1.613238.3.579.2.196 1995 Unknown [id number] 2.16. 840.1.185944.3.579.2.196 1995 Unknown [id number] 2.16.8 40.1.615038.3.579.2.173 1995 Unknown [id number] 2.16.8 40.1.655284.3.579.2.173 1995 Unknown [id number] 2.16.84 0.1.901479.3.579.2.1286 1995 Unknown [id number] 2.16.84 0.1.962113.3.579.2.1259 1995 Unknown [id number] 2.16.84 0.1.318212.3.579.2.1259 1995 Unknown [id number] 2.16.84 0.1.768196.3.579.2.1259 1995 Unknown [id number] 2.16.84 0.1.332929.3.579.2.1259 1995 Unknown [id number] 2.16.84 0.1.467927.3.579.2.9 1995 Unknown [id number] 2.16.84 0.1.299828.3.579.2.9 1995 Unknown [id number] 2.16.84 0.1.795050.3.579.2.1258 1995 Unknown [id number] 2.16.84 0.1.918630.3.579.2.9 1995 Unknown [id number] 2.16.84 0.1.393348.3.579.2.9 1995 Unknown [id number] 2.16.84 0.1.149297.3.579.2.9 1995 Unknown [id number] 2.16.84 0.1.940482.3.579.2.9 1959 Unknown [id number] Social History Date Type Detail Facility Start: 09-23-2022 End: 04-16-2023 Tobacco smoking status NHIS Never smoked tobacco [facility] Start: 09-23-2022 End: 04-16-2023 Tobacco use and exposure Smokeless tobacco non-user [facility] Start: 1995 Sex Assigned At Not on file B ON [facility] Start: 09-25-2023 Alcohol intake Ex-drinker (finding) [facility] Start: 09-23-2022 End: 09-25-2023 History of Social function [facility] Start: 09-23-2022 End: 09-25-2023 Tobacco use panel [facility] Within the past 12 months we worried whether our food would run out before we got money to buy more. Never True [facility] History of Present illness Narrative 09-25-2023 Bella [...] APRN-CNP 09/25/23 1344 documented in this encounter [facility] Evaluation note Note Date & Type Note Facility Evaluation note Diagnosis Encounter for IUD removal- Primary documented in this encounter [facility] Instructions Attachments Note Date & Type Note Facility Instructions The following attachments cannot be sent through Care Everywhere.How to plan and prepare for a healthy (Mongolian)documented in this encounter [facility] Summary Purpose Family History No Family [...] section and content) DATE CREATED AUTHOR 03/13/2018 [facility] DATE CREATED AUTHOR AUTHOR'S ORGANIZ ATION 06/02/2020 [facility]ital DATE CREATED AUTHOR AUTHOR'S ORGANIZ ATION 04/26/2023 [facility] DATE CREATED AUTHOR AUTHOR'S ORGANIZ ATION 05/22/2023 [facility] DATE CREATED AUTHOR AUTHOR'S ORGANIZ ATION [facility] DATE CREATED AUTHOR AUTHOR'S ORGANIZ ATION 06/12/2024 [facility] dic[facility] Specialists [employer] Care Teams (unrecognized sec tion and content) Certified Composites Technician Relationship Specialty Start Date End Date Sarita Bedoya, LEGAL COORDINATOR - ENVIRONMENTAL QUALITY ANALYST [address] [place] [address] PCP - General Certified Clinical Nurse Specialist 04/16/23 Certified Composites Technician Relationship Specialty Start Date End Date Sarita Bedoya APRN-FEED MIXER HELPER [address] [facility] [address] [place], [place] [id number] PCP - General Nurse Practitioner 05/05/21 Reason [...] BE BASED ON THE PRIMARY CLINICAL RECORDS. [employer]. provides no warranty or guarantee of the accuracy or completeness of information in this document.
[2024-06-17] MEDS: 0.9 % SODIUM CHLORIDE 1,000 ML 125 ML IV (05:45)
[2024-06-17 05:51] LABS: Hematocrit 28.1 % (36.0-48.0); Hemoglobin 9.2 g/dL (12.0-16.0); Mean Corpuscular HGB Conc 32.7 g/dL (29.9-35.2); Mean Corpuscular Hemoglobin 25.5 pg (26.7-34.0); Mean Corpuscular Volume 77.8 fL (81.0-99.0); Platelet Count 170 10^3/uL (150-450); Red Blood Count 3.61 10^6/uL (4.20-5.40); White Blood Count 8.4 10^3/uL (4.0-11.0)
[2024-06-17 06:02] LABS: Amphetamine Screen Urine NEGATIVE (NEGATIVE); Barbiturates Screen Urine NEGATIVE (NEGATIVE); Benzodiazepines Screen Urine NEGATIVE (NEGATIVE); Buprenorphine Screen Urine NEGATIVE (NEGATIVE); Cannabinoid Screen Urine NEGATIVE (NEGATIVE); Cocaine Screen Urine NEGATIVE (NEGATIVE); Methadone Screen Urine NEGATIVE (NEGATIVE); Methamphetamines Screen Urine NEGATIVE (NEGATIVE); Opiate Screen Urine NEGATIVE (NEGATIVE); Oxycodone Screen Urine NEGATIVE (NEGATIVE); Phencyclidine Screen Urine NEGATIVE (NEGATIVE); Tricyclic Antidepressant Urine NEGATIVE (NEGATIVE)
[2024-06-17] MEDS: OXYTOCIN/0.9 % SODIUM CHLORIDE 10 UNITS/500 ML PLAST..BAG 6 UNIT IV (07:00)
[2024-06-17] MEDS: ROPIVACAINE HCL/PF 400 MG/200 ML PREMIX 6 MG EPIDURAL (11:29)
[2024-06-17] MEDS: OXYTOCIN/0.9 % SODIUM CHLORIDE 20 UNITS/1,000 ML PLAST..BAG 125 UNIT IV (14:15)
--- NOTE | 2024-06-17 14:20 | PM.OBPRCVD ---
Procedure Intrapartal events: None Induction method: per pitocin protocol Delivery augmentation: rupture of membranes and pitocin Delivery monitor: external FHT and external uterine Route of delivery: Episiotomy Description: none L&D Laceration Description: none Estimated blood loss (mL): 250 Anesthesia type: Epidural Disposition: floor Delivery date: 06/17/24 Gender: male presentation: vertex Placental delivery description: Spontaneous cord description: 3 Vessels
[2024-06-17] MEDS: GLYCERIN/WITCH HAZEL PADS 1 PAD TOPICAL (16:24)
[2024-06-17] MEDS: BENZOCAINE/MENTHOL 85 GRAM SPRAY BOTTLE 1 APPLIC TOPICAL (16:24)
[2024-06-17] MEDS: IBUPROFEN 600 MG TABLET PO (18:42)
[2024-06-18 00:18] VITALS: BP 94/51; PULSE 78; TEMP 36.4
[2024-06-18] MEDS: IBUPROFEN 600 MG TABLET PO ×2 (04:39→10:34)
--- NOTE | 2024-06-18 05:40 | PM.OBPN ---
OB - PN: Subj Subjective Patient comments: no complaints and pain well controlled Garretson status: doing well Exam Constitutional Vital Signs, click to edit/add: Last Vital Signs Temp 97.5 F L 06/18/24 00:18 Pulse 78 06/18/24 00:18 Resp 18 06/18/24 00:18 BP 94/51 06/18/24 00:18 O2 Del Method Room Air 06/18/24 00:18 Documenting provider has reviewed patient's vital signs: yes Common normals: no apparent distress Respiratory Common normals: clear to auscultation bilaterally Cardio Common normals: regular rate and regular rhythm GI Common normals: Normal to inspection, nondistended, normoactive bowel sounds present Extremity Common normals: no clubbing, cyanosis or edema and no calf tenderness Results Labs Labs: Short CBC 06/17/24 Range/Units 05:46 WBC 8.4 (4.0-11.0) 10^3/uL Hgb 9.2 L (12.0-16.0) g/dL Hct 28.1 L (36.0-48.0) % Plt Count 170 (150-450) 10^3/uL OB - PN: A/P Plan - Vaginal Delivery day: 1 Plan: routine care, discharge home and follow up 6 weeks Time Spent with Patient Time: Total time spent is greater than 50% in coordination of care (as documented) at patient's floor/unit and/or counseling patient: Total time spent with greater than 50% in coordination of care (as documented) at patient's floor/unit and/or counseling patient: less than 15 minutes
[2024-06-18 06:55] LABS: Basophils Percent Auto 0.2 % (0.2-2.0); Eosinophils Absolute Auto 0.1 10^3/uL (0.0-0.7); Eosinophils Percent Auto 0.8 % (0.9-7.0); Hematocrit 25.7 % (36.0-48.0); Hemoglobin 8.3 g/dL (12.0-16.0); Immature Granulocytes Abs Auto 0.09 10^3/uL (0.00-0.03); Immature Granulocytes Pct Auto 0.7 % (0.0-0.5); Lymphocytes Absolute Auto 1.4 10^3/uL (1.2-3.8); Lymphocytes Percent Auto 11.5 % (20.5-60.0); Mean Corpuscular HGB Conc 32.3 g/dL (29.9-35.2); Mean Corpuscular Hemoglobin 25.5 pg (26.7-34.0); Mean Corpuscular Volume 78.8 fL (81.0-99.0); Mean Platelet Volume 10.8 fL (9.5-13.5); Monocytes Absolute Auto 0.9 10^3/uL (0.3-0.8); Monocytes Percent Auto 7.2 % (1.7-12.0); Neutrophils Absolute Auto 9.7 10^3/uL (1.4-6.5); Neutrophils Percent Auto 79.6 % (43.0-75.0); Platelet Count 162 10^3/uL (150-450); Red Blood Count 3.26 10^6/uL (4.20-5.40); Red Cell Distribution Width 13.2 % (11.0-15.0); White Blood Count 12.2 10^3/uL (4.0-11.0)
[2024-06-18 09:19] VITALS: BP 97/64; PULSE 60
--- NOTE | 2024-06-18 19:47 | PC.NURSE ---
PATIENT REFUSED RUBELLA VACCINE
== END 2024-06-18 17:20 | disposition home or self-care (01) | DRG 560 ==
PROVIDERS: Admitting Provider Obstetrics & Gynecology; Visit Provider Obstetrics & Gynecology
DX: O80 Encounter for full-term uncomplicated delivery (principal); Z3A.39 39 weeks gestation of pregnancy; Z37.0 Single live birth
CPT/HCPCS: 36415; 80307; 85025; 85027; 86850; 86900; 86901; J2795

== ENCOUNTER 2025-03-02 08:12 | Outpatient (OUT) | payer OTHER, SELFPAY ==
--- OUTSIDE RECORDS SUMMARY | 2025-03-02 08:28 | XMS_ITS | CCD ---
Author Organization [facility] Care Team Providers Care Studio Hand Name Role Phone Alvaro Uptonamber Almendarez Unavailable UnavailRAMONA Singleton Admdawood Unavailable RAMONA JIMÉNEZ Attending Unavailable RAMONA JIMÉNEZ Consulting Unavailable RAMONA JIMÉNEZ Admitting Unavailable RAMONA JIMÉNEZ Attending Unavailable REQUEST, NONE LISTED Primary Care Unavailable FRANKIE HENDRICKSON V Consulting Unavailable RAMONA JIMÉNEZ Consulting Unavailable RAMONA JIMÉNEZ Admitting Unavailable RAMONA JIMÉNEZ Attending Unavailable RAMONA JIMÉNEZ Consulting Unavailable RAMONA JIMÉNEZ Admitting Unavailable RAMONA JIMÉNEZ Attending Unavailable RAOMNA JIMÉNEZ Consulting Unavailable RAMONA JIMÉNEZ Admitting Unavailable [...] RAMONA JIMÉNEZ Procedure Practitioner Unavailab le Cleemput INSTITUTIONAL RESEARCH COORDINATOR-CONTACT OFFICER, Sarita Emmanuel Primary Care Unavai lable Cleemput INSTITUTIONAL RESEARCH COORDINATOR-CONTACT OFFICER, Sarita Emmanuel Attending Unavai lable Cleemput INSTITUTIONAL RESEARCH COORDINATOR-CONTACT OFFICER, Sarita Emmanuel Attending Unavai lable Cleemput INSTITUTIONAL RESEARCH COORDINATOR-CONTACT OFFICER, Sarita Emmanuel Primary Care Unavai lable Cleemput INSTITUTIONAL RESEARCH COORDINATOR-CONTACT OFFICER, Sarita Emmanuel Referring Jayy Roach MD, Demetrice Portillo Attending Unavailable Cleemput INSTITUTIONAL RESEARCH COORDINATOR-CONTACT OFFICER, Sarita Emmanuel Primary Care Unavai lable Cleemput INSTITUTIONAL RESEARCH COORDINATOR-CONTACT OFFICERSarita Primary Care Unavai lable Cleemput INSTITUTIONAL RESEARCH COORDINATOR-CONTACT OFFICER, Sarita Emmanuel Attending Jayy lable Cleemput KIESHA - ESTHER, Sarita Costello Primary Care Provider SARITA BEDOYA Referring Unavailable CLEEMPROSELYN, SARITA Costello Primary Care Unavailable Unavailable Primary Care Provider Unavailabl e Cleemput INSTITUTIONAL RESEARCH COORDINATOR - LABEL TACKER, Sarita Costello Primary Care Provider Cleemput INSTITUTIONAL RESEARCH COORDINATOR-CONTACT OFFICER, Sarita Costello Primary Care Provider AURELIANO, SARITA Costello Primary Care Unavailable LUIS SIMSY CHOLO Referring Unavailable CLEEMPUT, SARITA Costello Primary Care Unavailable EVANGELIST JENKINS Attending Unavailable BETHANY, MONICO Attending Unavailable BETHANY, MONICO Attending Unavailable ELIO, SARITA Attending Unavailable BETHANY, MONICO Attending Unavailable ELIO, SARITA Attending Unavailable BETHANY, MONICO Attending Unavailable ELIO, SARITA Attending Unavailable BETHANY, MONICO Attending Unavailable Allergies Allergy Classification Reported Allergen(s) Allergy Type Date of Onset Reaction(s) Facility (1 source) Adhesive agent Drug allergy (disorder) [facility] Repository (2 sources) Latex; Translations: [LATEX] Drug allergy (disorder) 3 [facility] Repository (1 source) morphine Drug Allergy [facility] Repository (1 source) Latex Drug allergy (disorder) 0 [facility] Repository (5 sources) Latex Propensity to adverse reactions to drug 3 [facility] (3 sources) Hydrocortisone; Translations: [HYDROCORTISONE] Drug Allergy 3 [facility] Repository (16 sources) Cortisone Drug Allergy 4 Rash [facility] Healthcare Work Phone: (16 sources) Latex Propensity to adverse reactions 3 [facility] Work Phone: (2 sources) Morphine Drug Allergy 4 [facility] Medications Current Medications Medication Drug Class(es) Dates Sig (Normalized) Sig (Original) multivit-min/ferrous fumarate (MULTI VITAMIN ORAL) (2 sources) take 1 tablet by francia th once daily multivit-min/ferrous fumarate (MULTI VITAMIN ORAL) Take 1 tablet by mouth daily. Active take 1 tablet by mouth once maye y multivit-min/ferrous fumarate (MULTI VITAMIN ORAL) Take 1 tablet by mouth daily. 0 Active ondansetron 4 mg disintegrating oral tablet (3 sources) Serotonin-3 Receptor Antagonist Start: 04-16-2023 take 1 tablet by mouth three times daily as needed for nausea ondansetron (ZOFRAN-ODT) 4 MG disintegrating tablet Take 1 tablet by mouth 3 times daily as needed for Nausea or Vomiting 6 tablet 04/16/2023 Active polysaccharide iron complex 391 mg oral capsule (16 sources) Start: 03-27-2024 End: 03-27-2025 take 1 capsule by mouth once daily iron polysaccharides (ProFe) 391.3 (180 Fe) MG capsule Indications: Anemia affecting in second trimester Take 1 capsule (391.3 mg) by mouth Daily 30 capsule 6 03/27/2024 03/27/2025 Active Vit-Fe Fumarate-FA ( VITAMIN PO) (16 sources) Vit-Fe Fumarate-FA ( VITAMIN PO) Indications: Missed menses , , unspecified gestational age Take by mouth Active Vit-Fe Fumarate-FA ( VITAMIN PO) Take by mouth Active vits62/FA/om3/dha/e pa ( GUMMY ORAL) (2 sources) vits62/ FA/om3/dha/epa ( GUMMY ORAL) Take by mouth. Active vits62/ FA/om3/dha/epa ( GUMMY ORAL) Take by mouth. 0 Active Completed/Discontinued Medications Medication Drug Class(es) Dates Sig (Normalized) Sig (Original) levonorgestrel 0.855754 mg/hr intrauterine system (1 source) Progestin, Progestin-containi ng Intrauterine Device End: 09-25-2023 levonorgestreL (MIRENA) 20 mcg/24 hours (8 yrs) 52 mg IUD 1 each by intrauterine route once. 0 09/25/2023 Discontinued (Therapy completed) Problems Active Problems Problem Classification Problem Date Documented Date Episodic/Chronic Contraceptive and procreative management (3 sources) Encounter for removal of intrauterine contraceptive device; Translations: [Contraception ] Onset: 09-25-2023 09-25-2023 Episodic Immunizations and screening for infectious disease (4 sources) Encounter for screening for other viral diseases; Translations: [ENC SCREENING FOR OTH VIRAL DZ] Onset: 05-18-2020 Episodic Menstrual disorders (20 sources) Secondary amenorrhea; Translations: [Missed period] Onset: 11-21-2019 12-11-2023 Chronic Other complications of ; puerperium affecting management of mother (3 sources) Obesity complicating childbirth; Translations: [OBESITY COMPLICATING CHILDBIRTH] Onset: 05-25-2020 Chronic Other nutritional; endocrine; and metabolic disorders (1 source) Obesity, unspecified; Translations: [OBESITY UNSPECIFIED] Onset: 06-02-2020 Chronic Other and delivery including normal (20 sources) Encounter for supervision of normal , unspecified, third trimester; Translations: [Encounter for supervision of normal , unspecified, unspecified trimester] Onset: 11-07-2019 06-03-2024 Episodic Residual codes; unclassified (1 source) 39 [...] Classification Problem Date Documented Da te Episodic/Chronic Open wounds of extremities (2 sources) Laceration of left middle finger; Translations: [Laceration without foreign body of left middle finger without damage to nail, initial encounter] Onset: 09-13-2024 09-13-2024 Episodic Other complications of (2 sources) size does not accord with dates; Translations: [Uterine size-date discrepancy, unspecified trimester] 05-13-2024 Episodic Other infections; including parasitic (4 sources) Personal history of other infectious and parasitic diseases; Translations: [PERSONAL HX OTH INF AND PARASITIC DZ] Onset: 01-27-2020 Episodic Residual codes; unclassified (2 sources) Gestation period, 36 weeks; Translations: [36 weeks gestation of ] 05-27-2024 Episodic Results Test Name Value Interpretation Reference Range Facility HCG ( test) Ql (U)o n 02-13-2025 Interpretation and review of laboratory results Abnormal [facility] Preg Test, Ur Positive Negative [facility] care No Panel Informationon 02-13 [facility] US OB TRANSVAGINALon 2 025 US OB TRANSVAGINAL EXAM: US OB TRANSVAGINAL HISTORY: Dating. COMPARISON: None available. TECHNIQUE: Two-dimensional transvaginal grayscale ultrasound imaging of the pelvis was performed. FINDINGS: The uterus demonstrates a normal homogeneous echotexture. The cervix measures 4.4 cm in length and the cervical os is closed. The bilateral ovaries are not visualized. No fluid is present within the cul-de-sac. There is a single, live intrauterine gestation identified with a heart rate of 153 beats per minute and a crown-rump length measurement of 7.2 cm, correlating to a gestational age of 13 weeks 2 days (+/- 8 days). There is no subchorionic hemorrhage visualized. A yolk sac is not visualized. IMPRESSION: 1. Single, live intrauterine gestation with today's ultrasound measurements correlating to a gestational age of 13 weeks 2 days (+/- 8 days). VANGIE by today's ultrasound is 08/19/2025. 2. Bilateral ovaries not visualized. Interpreted by: Electronically signed by HEENA BHARDWAJ II, MD, PHD at 16-Feb-2025 10:22:48 AM [facility] Normal Not Available Comment on above: Order Comment: US OB TRANSVAGINAL No LMP recorded. Urinalysis macro (dipstick) panel (U)on 02-13-2025 Bilirubin, UA Negative Negative - 4(70) +++ mg/dL [facility] Blood, UA Negative Negative - 50 Haseeb/mcL [facility] Clarity, UA Clear [facility] Healthid re Color, UA Yellow [facility] Glucose, UA Negative Negative - 2000(110) ++++ mg/dL [facility] Interpretation and review of laboratory results Normal [facility] Ketones, UA Negative Negative - 160(16) ++++ mg/dL [facility] Leukocytes, UA Negative Negative - 500+++ Ronaldo/mcL [facility] Nitrite, UA Negative Negative - Positive [facility] pH, UA 7 5 - 9 [facility] Protein, UA Negative Negative - 2000(20) ++++ mg/dL [facility] Spec Grav, UA 1.025 1 - 1.03 [facility] care Urobilinogen, UA 0.2 0.2 - 12 mg/dL [facility] ALL HCG, QUANTITATIVEon 04-3 Interpretation and review of laboratory results Abnormal [facility] MHPT HCG, QUANT [id number] High [facility] Comment on above: Non-preg premeno <=5 Postmeno <=8 Male <=3 If HCG results do not concur with clinical observations, additional testing to confirm results is recommended. Original Ordering Provider: MONICO MURRAY [facility] e HCG, Quanton 01-14-2025 HCG, Quant 752168.0 mIU/mL High 0-7 [facility] Comment on above: Result Comment: Non-preg premeno <=5 Postmeno <=8 Male <=3 If HCG results do not concur with clinical observations, additional testing to confirm results is recommended. Performed By: #### B HCG #### [facility] [address] [place] [address] Funeral Sales Manager: Frankie Sen MD HCG, Quantitative, on 01-14-2025 HCG.beta subunit Qn [id number] m[IU]/mL High [facility] Comment on above: Non-preg premeno <=5 Postmeno <=8 Male <=3 If HCG results do not concur with clinical observations, additional testing to confirm results is recommended. Interpretation and review of laboratory results Abnormal [facility] XR FINGER LEFT (MIN 2 VIEWS) on 09-13-2024 XR FINGER LEFT (MIN 2 VIEWS) EXAMINATION: THREE XRAY VIEWS OF THE LEFT FINGERS 09/13/2024 6:42 pm COMPARISON: None. HISTORY: ORDERING SYSTEM PROVIDED HISTORY: lac TECHNOLOGIST PROVIDED HISTORY: lac Specify which digit to image->Third FINDINGS: Bone: No acute fracture. Mineralization: Normal bone mineralization. Joint: No dislocation. No significant degenerative changes. Soft tissues: Unremarkable. IMPRESSION: No acute osseous abnormality. Interpreted by: Koffi Ortez MD Signed by: Koffi Ortez MD 09/13/24 Final result Normal [facility] XR Finger - left 2 Viewson 1 11-14-2023 No acute osseous abnormality. [facility] EXAMINATION: THREE XRAY VIEWS OF THE LEFT FINGERS 09/13/2024 6:42 pm COMPARISON: None. HISTORY: ORDERING SYSTEM PROVIDED HISTORY: lac TECHNOLOGIST PROVIDED HISTORY: lac Specify which digit to image->Third FINDINGS: Bone: No acute fracture. Mineralization: Normal bone mineralization. Joint: No dislocation. No significant degenerative changes. Soft tissues: Unremarkable. [facility] Koffi Ortez MD - 09/13/2024 EXAMINATION: THREE XRAY VIEWS OF THE LEFT FINGERS 09/13/2024 6:42 pm COMPARISON: None. HISTORY: ORDERING SYSTEM PROVIDED HISTORY: lac TECHNOLOGIST PROVIDED HISTORY: lac Specify which digit to image->Third FINDINGS: Bone: No acute fracture. Mineralization: Normal bone mineralization. Joint: No dislocation. No significant degenerative changes. Soft tissues: Unremarkable. IMPRESSION: No acute osseous abnormality. [facility] Radiology Study observation (narrative) [facility] XR Finger - left 2 ViewsOrde red By: Koffi Ortez on 09-13-2024 [facility] Work Phone: ALL CBC WITH AUTO DIFFon BASOPHILS ABSOLUTE AUTO 0.0 [facility] Basophils/100 WBC (Bld) 0.2 % 0.2 - 2.0 % [facility] Eosinophils/100 WBC (Bld) 0.8 % Low 0.9 - 7.0 % [facility] Erythrocyte distribution width (RBC) [Ratio] 13.2 % 11.0 - 15.0 % [facility] Hematocrit (Bld) [Volume fraction] 25.7 % Low 36.0 - 48.0 % [facility] Hemoglobin (Bld) [Mass/Vol] 8.3 g/dL Low 12.0 - 16.0 g/dL [facility] IMMATURE GRANULOCYTES ABS AUTO 0.09 High [facility] Immature granulocytes/100 WBC (Bld) 0.7 % High 0.0 - 0.5 % [facility] Interpretation and review of laboratory results Abnormal [facility] LYMPHOCYTES ABSOLUTE AUTO 1.4 [facility] Lymphocytes/100 WBC (Bld) 11.5 % Low 20.5 - 60.0 % [facility] MCH (RBC) [Entitic mass] 25.5 pg Low 26.7 - 34.0 pg [facility] MCHC (RBC) [Mass/Vol] 32.3 g/dL 29.9 - 35.2 g/dL [facility] MCV (RBC) [Entitic vol] 78.8 fL Low 81.0 - 99.0 fL [facility] MONOCYTES ABSOLUTE AUTO 0.9 High [facility] Monocytes/100 WBC (Bld) 7.2 % 1.7 - 12.0 % [facility] NEUTROPHILS ABSOLUTE AUTO 9.7 High [facility] Neutrophils/100 WBC (Bld) 79.6 % High 43.0 - 75.0 % [facility] Platelet mean volume (Bld) [Entitic vol] 10.8 fL 9.5 - 13.5 fL [facility] are TB EO # 0.1 [facility] TB PLT 162 [facility] TB RBC 3.26 Low [facility] TB WBC 12.2 High [facility] e [facility] CBC WITH PLATELET NO DI FFERENTIALon 06-17-2024 Erythrocyte distribution width (RBC) [Ratio] 13.0 % 11.0 - 15.0 % [facility] Hematocrit (Bld) [Volume fraction] 28.1 % Low 36.0 - 48.0 % [facility] Hemoglobin (Bld) [Mass/Vol] 9.2 g/dL Low 12.0 - 16.0 g/dL [facility] Interpretation and review of laboratory results Abnormal [facility] MCH (RBC) [Entitic mass] 25.5 pg Low 26.7 - 34.0 pg [facility] MCHC (RBC) [Mass/Vol] 32.7 g/dL 29.9 - 35.2 g/dL [facility] MCV (RBC) [Entitic vol] 77.8 fL Low 81.0 - 99.0 fL [facility] Platelet mean volume (Bld) [Entitic vol] 11.0 fL 9.5 - 13.5 fL [facility] TBH PLT 170 [facility] TB RBC 3.61 Low [facility] TB WBC 8.4 [facility] Urinalysis macro (dipstick) panel (U)on 06-10-2024 Bilirubin, UA Negative Negative - 4(70) +++ mg/dL [facility] Healthcare Blood, UA Negative Negative - 50 Haseeb/mcL [facility] Healthcare Clarity, UA Clear [facility] Color, UA Yellow [facility] Glucose, UA Negative Negative - 1999(110) ++++ mg/dL [facility] Interpretation and review of laboratory results Abnormal [facility] Ketones, UA Positive Negative - 160(16) ++++ mg/dL [facility] Healthcare Leukocytes, UA Positive Negative - 500+++ Ronaldo/mcL [facility] Healthcare Nitrite, UA Negative Negative - Positive [facility] pH, UA 6.5 5 - 9 [facility] Protein, UA Negative Negative - 1999(20) ++++ mg/dL [facility] Healthcare Spec Grav, UA 1.025 1 - 1.03 [facility] care Urobilinogen, UA 1.0 0.2 - 12 mg/dL [facility] Urinalysis macro (dipstick) panel (U)on 06-03-2024 Bilirubin, UA Negative Negative - 4(70) +++ mg/dL [facility] Blood, UA Negative Negative - 50 Haseeb/mcL [facility] Healthcare Clarity, UA Clear [facility] Color, UA Yellow [facility] Glucose, UA Negative Negative - 1999(110) ++++ mg/dL [facility] Interpretation and review of laboratory results Abnormal [facility] Ketones, UA Positive Negative - 160(16) ++++ mg/dL [facility] Healthcare Leukocytes, UA Positive Negative - 500+++ Ronaldo/mcL [facility] Healthcare Nitrite, UA Negative Negative - Positive [facility] pH, UA 5.5 5 - 9 [facility] Protein, UA Positive Negative - 1999(20) ++++ mg/dL [facility] Healthcare Spec Grav, UA 1.025 1 - 1.03 [facility] Health care Urobilinogen, UA 1.0 0.2 - 12 mg/dL [facility] Urinalysis macro (dipstick) panel (U)on 05-27-2024 Bilirubin, UA Negative Negative - 4(70) +++ mg/dL [facility] Healthcare Blood, UA Negative Negative - 50 Haseeb/mcL [facility] Healthcare Clarity, UA Clear [facility] Color, UA Yellow [facility] Glucose, UA Negative Negative - 1999(110) ++++ mg/dL [facility] Interpretation and review of laboratory results Abnormal [facility] Ketones, UA Negative Negative - 160(16) ++++ mg/dL [facility] Leukocytes, UA Positive Negative - 500+++ Ronaldo/mcL [facility] Comment on above: small Nitrite, UA Negative Negative - Positive [facility] pH, UA 8.5 5 - 9 [facility] e Protein, UA Negative Negative - 1999(20) ++++ mg/dL [facility] Spec Grav, UA 1.020 1 - 1.03 [facility] Urobilinogen, UA 0.2 0.2 - 12 mg/dL [facility] Urinalysis macro (dipstick) panel (U)on 05-13-2024 Bilirubin, UA Negative Negative - 4(70) +++ mg/dL [facility] Blood, UA Negative Negative - 50 Haseeb/mcL [facility] Clarity, UA Clear [facility] Healthca re Color, UA Yellow [facility] Glucose, UA Negative Negative - 1999(110) ++++ mg/dL [facility] Interpretation and review of laboratory results Abnormal [facility] Ketones, UA Negative Negative - 160(16) ++++ mg/dL [facility] Leukocytes, UA Trace Negative - 500+++ Ronaldo/mcL [facility] Nitrite, UA Negative Negative - Positive [facility] pH, UA 8.5 5 - 9 [facility] Health[facility] e Protein, UA Trace Negative - 1999(20) ++++ mg/dL [facility] Spec Grav, UA 1.020 1 - 1.03 [facility] Urobilinogen, UA 0.2 0.2 - 12 mg/dL [facility] Clostridium Difficile Toxin/ Antigenon 05-21-2023 C. difficile glutamate dehydrogenase and toxins A+B IA.rapid Ql (Stl) Negative NEGATIVE [facility] Comment on above: No C. difficile anti gen and Toxin Detected. 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 Migraines try imitrex if EKG is normal f/u in 1 month EKG normal Ordered: EKG Orders: SUMAtriptan, 1 tabs, Oral, Daily, PRN, may repeat dose after 2 hours up to a maximum of 200 mg in 24 hours, X 30 days, # 9 tabs, 0 Refill(s), 04/07/23 9:10:00 EDT, Pharmacy: [facility] [id number] Medical Decision Making Chronic conditions NOT treated during this visit that affected my overall medical decision making: [] Treatment plans discussed but not opted for at this time: [] Prescribed medication that requires intensive monitoring for toxicity: [] I have reviewed the patient?s medication list for medication interactions/contrai ndications and/or for upcoming procedures: [yes or no] [...] 5 years ago Use:. Electronically signed by Sarita Vo 03/08/23 11:43 EDT Normal [facility] CBC AUTO DIFFon 05-25-2020 Basophils (Bld) [#/Vol] 0.0 103/ul Normal 0.0-0.1 [facility] Comment on above: Performed By: #### C BC ####[facility] [address] [place] [address] [id number] Erendira Basophils/100 WBC (Bld) 0.3 % Normal 0.2-2.0 [facility] Comment on above: Performed By: #### C BC ####[facility] [address] [place] [address] [id number] Erendira Eosinophils (Bld) [#/Vol] 0.1 103/ul Normal 0.0-0.7 [facility] Comment on above: Performed By: #### C BC ####[facility] [address] [place], [place] [address]Rptnxm Erendira Eosinophils/100 WBC (Bld) 1.2 % Normal 0.9-7.0 [facility] Comment on above: Performed By: #### C BC ####[facility] [address] [place] [address] 75234Mzxlsy Erendira Erythrocyte distribution width (RBC) [Ratio] 14.1 % Normal 11.0-15.0 [facility] Comment on above: Performed By: #### C BC ####[facility] [address] [place], [place] [address]Apddyh Erendira Hematocrit (Bld) [Volume fraction] 32.9 % Critically low 36.0-48.0 [facility] Comment on above: Performed By: #### C BC ####[facility] [address] [place] [id number] Erendira Hemoglobin (Bld) [Mass/Vol] 11.2 g/dL Critically low 12.0-16.0 [facility] Comment on above: Performed By: #### C BC ####[facility] [address] [place], [place] [id number] Erendira IG # 0.09 10e3/ul Critically high 0.00-0.03 [facility] Comment on above: Performed By: #### C BC ####[facility] [address] [place], [place] [id number] Erendira IG % 0.9 % Critically high 0.0-0.5 [facility] Comment on above: Performed By: #### C BC ####[facility] [address] [place], [place] [id number] Erendira Lymphocytes (Bld) [#/Vol] 1.3 103/ul Normal 1.2-3.8 [facility] Comment on above: Performed By: #### C BC ####[facility] [address] [place], [place] [id number] Erendira Lymphocytes/100 WBC (Bld) 13.1 % Critically low 20.5-60.0 [facility] Comment on above: Performed By: #### C BC ####[facility] [address] [place], [place] [id number] Erendira MANUAL DIFF REQ NO Normal [facility] Comment on above: Performed By: #### C BC ####[facility] [address] [place] [id number] Erendira MCH (RBC) [Entitic mass] 29.6 pg Normal 26.7-34.0 [facility] Comment on above: Performed By: #### C BC ####[facility] [address] [place], [place] [address]Avxypb Erendira MCHC (RBC) [Mass/Vol] 34.0 g/dL Normal 29.9-35.2 [facility] Comment on above: Performed By: #### C BC ####[facility] Ackemzqvis[address]48 [place], [place] [address]Kyvlaf Erendira MCV (RBC) [Entitic vol] 87.0 fL Normal 81.0-99.0 [facility] Comment on above: Performed By: #### C BC ####[facility] Zwpuszjfvg3604 [place], [place] [address]Fgvnsr Erendira Monocytes (Bld) [#/Vol] 0.9 103/ul Critically high 0.3-0.8 [facility] Comment on above: Performed By: #### C BC ####[facility] Agworgmrfl7863 [place], [place] [address]Masmec Erendira Monocytes/100 WBC (Bld) 9.1 % Normal 1.7-12.0 [facility] Comment on above: Performed By: #### C BC ####[facility] [address] [place] [address]Uvmplz Erendira Neutrophils (Bld) [#/Vol] 7.6 103/ul Critically high 1.4-6.5 [facility] Comment on above: Performed By: #### C BC ####[facility] W[address] [place] [address]Oolkld Erendira Neutrophils/100 WBC (Bld) 75.4 % Critically high 43.0-75.0 [facility] Comment on above: Performed By: #### C BC ####[facility] [address] [place] [address]Hbptbw Erendira Platelet mean volume (Bld) [Entitic vol] 10.1 fL Normal 9.5-13.5 [facility] Comment on above: Performed By: #### C BC ####[facility] [address] [place] [address]27[address]Zfbcws Erendira Platelets (Bld) [#/Vol] 200 103/ul Normal 150-450 [facility] Comment on above: Performed By: #### C BC ####[facility] Tzipujeyfp7615 [address] Erendira RBC (Bld) [#/Vol] 3.78 106/ul Critically low 4.20-5.40 Th e [facility] Comment on above: Performed By: #### C BC ####[facility] Vkltpezgpa6778 [address] Erendira WBC (Bld) [#/Vol] 10.1 103/ul Normal 4.0-11.0 [facility] Comment on above: Performed By: #### C BC ####[facility] [address] [place] [address] Erendira DRUG SCREEN RAPID (URINE)on 05-25-2020 AMP Negative Normal NEGATIVE [facility] Comment on above: Performed By: #### D RUGRPD ####[facility] [address] [place] [address] Erendira BAR Negative Normal NEGATIVE [facility] Comment on above: Performed By: #### D RUGRPD ####[facility] X[address] [place] [address] Erendira BUP Negative Normal NEGATIVE [facility] Comment on above: Performed By: #### D RUGRPD ####[facility] [address] [place] [address] Erendira BZO Negative Normal NEGATIVE [facility] Comment on above: Performed By: #### D RUGRPD ####[facility] [address] [place] [address] Erendira JAYLA Negative Normal NEGATIVE [facility] Comment on above: Performed By: #### D RUGRPD ####[facility] Z[address] [place] [address] CUT-OFFS SEE BELOW Normal [facility] Comment on above: Result Comment: AMP [...] 300 ng/mL Performed By: #### D RUGRPD ####[facility] [address] [place] [address] DRUG CUT HEADER DRUG CLASS TEST SYSTEM CUT-OFF CONCENTRATIONS ARE FOLLOWS: Normal [facility] Comment on above: Performed By: #### D RUGRPD ####[facility] Z[address]is[address] [place] [address] mAMP Negative Normal NEGATIVE [facility] Comment on above: Performed By: #### Roque RUGRPD ####[facility] Woxwr[address] [place] [address] MTD Negative Normal NEGATIVE [facility] Comment on above: Performed By: #### Roque RUGRPD ####[facility] [address] [place] [address] OPI Negative Normal NEGATIVE [facility] Comment on above: Performed By: #### D RUGRPD ####[facility] [address] [place], [place] [address] OXY Negative Normal NEGATIVE [facility] Comment on above: Performed By: #### Roque RUGRPD ####[facility] [address]pt[address] [place] [address] PCP Negative Normal NEGATIVE [facility] Comment on above: Performed By: #### D RUGRPD ####[facility] [address] [place] [address] PPX Negative Normal NEGATIVE [facility] Comment on above: Performed By: #### Roque RUGRPD ####[facility] [address]yfs[address] [place], [place] [address] TCA Negative Normal NEGATIVE [facility] Comment on above: Performed By: #### D RUGRPD ####[facility] Bqrfvzbjye3580 [address] THC Negative Normal NEGATIVE [facility] Comment on above: Performed By: #### D RUGRPD ####[facility] Iobwjhavkh14[address] E[place]ira TYPE AND SCREENon 05-25-2020 TYPE AND SCREEN Negative Normal [facility] Comment on above: Performed By: #### T NS ####[facility] Fyjnuumrrf0041 [address] COVID-19 PCRon 05-20-2020 SARS-CoV-2, EMILE Not Detected Normal Not Detected [facility] Comment on above: Result Comment: This nucleic acid amplification test was developed and its perfomance characteristics determined by [employer]. Nucleic acid amplification tests include PCR and [...] this assay. Performed By: #### C VDPCR ####[facility] Hoyckwaewz4872 [address] CHLAMYDIA/GONOCOCCUS EMILE (SW AB/URINE/PAPon 05-06-2020 Chlamydia trachomatis, EMILE Negative Normal Negative [facility] Comment on above: Performed By: #### C T/NGNA ####[facility] [address] [place] [address] Erendira Neisseria gonorrhoeae, EMILE Negative Normal Negative [facility] Comment on above: Performed By: #### C T/NGNA ####[facility] [address]ns[address] [place] [address] Erendira GROUP B STREP CULTUREon 04-17 S. agalactiae Ag Ql (Unsp spec) Culture Observations: Negative for Group B Streptococcus Normal [facility] Comment on above: Performed By: #### G BSCX ####[facility] [address] [place] [address] Erendira CBC AUTO DIFFon 03-04-2020 Basophils (Bld) [#/Vol] 0.0 103/ul Normal 0.0-0.1 [facility] Comment on above: Performed By: #### C BC ####[facility] [address] [place] [address] Erendira Basophils/100 WBC (Bld) 0.4 % Normal 0.2-2.0 [facility] Comment on above: Performed By: #### C BC ####[facility] [address] [place] [address] Erendira Eosinophils (Bld) [#/Vol] 0.1 103/ul Normal 0.0-0.7 [facility] Comment on above: Performed By: #### C BC ####[facility] [address] [place] [address] Erendira Eosinophils/100 WBC (Bld) 1.0 % Normal 0.9-7.0 [facility] Comment on above: Performed By: #### C BC ####[facility] F[address] [place] [address] Erendira Erythrocyte distribution width (RBC) [Ratio] 13.1 % Normal 11.0-15.0 [facility] Comment on above: Performed By: #### C BC ####[facility] [address] [place] [address] Erendira Hematocrit (Bld) [Volume fraction] 34.5 % Critically low 36.0-48.0 [facility] Comment on above: Performed By: #### C BC ####[facility] [address] [place] [address] Erendira Hemoglobin (Bld) [Mass/Vol] 11.6 g/dL Critically low 12.0-16.0 [facility] Comment on above: Performed By: #### C BC ####[facility] [address] [place] [address] Erendira IG # 0.09 10e3/ul Critically high 0.00-0.03 [facility] Comment on above: Performed By: #### C BC ####[facility] [address] [place] [address] Erendira IG % 0.9 % Critically high 0.0-0.5 [facility] Comment on above: Performed By: #### C BC ####[facility] Fu[address]yybodb[address] [place] [address] Erendira Lymphocytes (Bld) [#/Vol] 1.2 103/ul Normal 1.2-3.8 [facility] Comment on above: Performed By: #### C BC ####[facility] [address] [place] [address] Erendira Lymphocytes/100 WBC (Bld) 12.1 % Critically low 20.5-60.0 [facility] Comment on above: Performed By: #### C BC ####[facility] [address]miwei[address] [place] [address] Erendira MANUAL DIFF REQ NO Normal [facility] Comment on above: Performed By: #### C BC ####[facility] Y[address]clc[address] [place] [address] Erendira MCH (RBC) [Entitic mass] 30.7 pg Normal 26.7-34.0 [facility] Comment on above: Performed By: #### C BC ####[facility] [address]ypain[address] [place] [address] Erendira MCHC (RBC) [Mass/Vol] 33.6 g/dL Normal 29.9-35.2 [facility] Comment on above: Performed By: #### C BC ####[facility] [address]lsj[address] [place] [address]Dapjbn Karen MCV (RBC) [Entitic vol] 91.3 fL Normal 81.0-99.0 [facility] Comment on above: Performed By: #### C BC ####[facility] I[address] [place], [place] [address]Gerken Erendira Monocytes (Bld) [#/Vol] 0.7 103/ul Normal 0.3-0.8 [facility] Comment on above: Performed By: #### C BC ####[facility] [address] [place], [place] [address]Gerken Erendira Monocytes/100 WBC (Bld) 6.8 % Normal 1.7-12.0 [facility] Comment on above: Performed By: #### C BC ####[facility] [address]rkvbbpa[address] [place], [place] [address]Gerken Erendira Neutrophils (Bld) [#/Vol] 7.8 103/ul Critically high 1.4-6.5 [facility] Comment on above: Performed By: #### C BC ####[facility] Y[address]xq[address] [place], [place] [address]Gerken Erendira Neutrophils/100 WBC (Bld) 78.8 % Critically high 43.0-75.0 [facility] Comment on above: Performed By: #### C BC ####[facility] B[address] [place], [place] [address]Gerken Erendira Platelet mean volume (Bld) [Entitic vol] 10.0 fL Normal 9.5-13.5 [facility] Comment on above: Performed By: #### C BC ####[facility] Te[address]zg[address] [place], [place] [address]Gerken Erendira Platelets (Bld) [#/Vol] 163 103/ul Normal 150-450 [facility] Comment on above: Performed By: #### C BC ####[facility] Chpvwtiphy5395 [address] Erendira RBC (Bld) [#/Vol] 3.78 106/ul Critically low 4.20-5.40 [facility] Comment on above: Performed By: #### C BC ####[facility] [address] [place] [id number] Erendira WBC (Bld) [#/Vol] 9.9 103/ul Normal 4.0-11.0 [facility] Comment on above: Performed By: #### C BC ####[facility] Fonauexudh13[address] Erendira GLUCOSE - 1HRon 03-04-2020 Glucose [Mass/Vol] 121 mg/dL Critically high 74-106 [facility] Comment on above: Performed By: #### G LU1HR ####[facility] [address] [place] [address] Erendira CHLAMYDIA/GONOCOCCUS EMILE (SW AB/URINE/PAPon 01-28-2020 Chlamydia trachomatis, EMILE Negative Normal Negative [facility] Comment on above: Performed By: #### C T/NGNA ####[facility] [address]wuf[address] [place] [address] Erendira Neisseria gonorrhoeae, EMILE Negative Normal Negative [facility] Comment on above: Performed By: #### C T/NGNA ####[facility] [address] [place] [address] Erendira TRICHAMONAS VAGINALIS. NAAon 01-28-2020 Trich vag by EMILE Negative Normal Negative [facility] Comment on above: Performed By: #### T RICHNA ####[facility] [address] [place] [address] Erendira US PREG ANATOMY SINGLEon US PREG [...] by: LINDA CAICEDO Date: 2020-01-09 14:28 Normal [facility] PAP ACOG PANEL 3: 21 to 29on 12-30-2019 Age Gdln ACOG Testing 21-29 Normal [facility] Comment on above: Performed By: #### A ROMY #### [facility] [address] [address] Helio Krishna Chlamydia, Nuc. Acid Amp Positive Abnormal Negative [facility] Comment on above: Result Comment: . Performed at: =G Performed By: #### A ROMY #### [facility] [address] [place] [address] Helio Krishna DIAGNOSIS: Comment Normal [facility] Comment on above: Result Comment: NEGA TIVE FOR INTRAEPITHELIAL LESION OR MALIGNANCY. THIS SPECIMEN WAS RESCREENED PART OF OUR PATIENT OMBUDSPERSON PROGRAM. Performed at: WB Performed By: #### A ROMY #### [facility] [address] [place] [address] Helio Krishna Gonococcus, Nuc. Acid Amp Negative Normal Negative [facility] Comment on above: Result Comment: Perf ormed at: =G Performed By: #### A ROMY #### [facility] [address] [place] [address] Helio Krishna Methodology: Comment Normal [facility] Comment on above: Result Comment: This liquid based ThinPrep(R) pap test was screened with the use of an image guided system. Performed at: WB Performed By: #### A ROMY #### [facility] [address] [place] [address] Helio Krishna Note: Comment Normal [facility] Comment on above: Result Comment: The [...] WB Performed By: #### A ROMY #### [facility] [address] [place] [address] Helio Krishna Performed by: Comment Normal [facility] Comment on above: Result Comment: Cindy Taylor, Billposting Supervisor (ASCP) Performed at: WB Performed By: #### A ROMY #### [facility] [address] [place] [address] Helio Krishna QC reviewed by: Comment Normal [facility] Comment on above: Result Comment: Shoshana Stevens, Supervisory Billposting Supervisor (ASCP) Performed at: WB Performed By: #### A ROMY #### [facility] [address] [place] [address] Helio Erendira Reflex Criteria: Comment Normal [facility] Comment on above: Result Comment: The HPV DNA reflex criteria were not met with this specimen result therefore, no HPV testing was performed. . Performed at: WB Performed By: #### A ROMY #### [facility] [address] [place] [address] Helio Erendira Specimen adequacy: Comment Normal [facility] Comment on above: Result Comment: Sati sfactory for evaluation. Endocervical and/or squamous metaplastic cells (endocervical component) are present. Performed at: WB Performed By: #### A ROMY #### [facility] [address] [place] [address] Helio Erendira . . Normal [facility] Comment on above: Result Comment: Perf ormed at: WB Performed By: #### A ROMY #### [facility] [address] [place] [address] Helio Erendira HGB(ELECTP) FRACTION PROFILE on 11-24-2019 Hemoglobin (Bld) [Mass/Vol] 97.3 % Normal 96.4-98.8 [facility] Comment on above: Performed By: #### A ROMY #### [facility] [address] [place] [address] Helio Erendira Hgb A2 2.7 % Normal 1.8-3.2 [facility] Comment on above: Performed By: #### A ROMY #### [facility] [address] [place] [address] Helio Erendira Hgb C 0.0 % Normal 0.0 [facility] Comment on above: Performed By: #### A ROMY #### [facility] [address] [place] [address] Helio Erendira Hgb F 0.0 % Normal 0.0-2.0 [facility] Comment on above: Performed By: #### A ROMY #### [facility] [address] [address] Helio Krishna Hgb S 0.0 % Normal 0.0 [facility] Comment on above: Performed By: #### A ROMY #### [facility] [address] [place] [address] Helio Krishna Hgb Solubility Negative Normal Negative [facility] Comment on above: Performed By: #### A ROMY #### [facility] [address] [place] [address] Helioari Krishna Hgb Variant Normal [facility] Comment on above: Performed By: #### A ROMY #### [facility] [address] [place] [address] Helio Krishna Interpretation Comment Normal [facility] Comment on above: Result Comment: Norm al adult hemoglobin present. Performed By: #### A ROMY #### [facility] [address] [place] [address] Helio Krishna HEP B SURFACE ANTIGEN SCREEN on 11-22-2019 HBsAg Screen Negative Normal Negative [facility] Comment on above: Performed By: #### A ROMY #### [facility] [address] [place] [address] Helio Krishna HEPATITIIS C VIRUS ANTIBODYo n 11-22-2019 Hep C Virus Ab <0.1 Normal 0.0-0.9 [facility] Comment on above: Result Comment: Nega tive: < 0.8 Indeterminate: 0.8 - 0.9 Positive: > 0.9 . The CDC recommends that a positive HCV antibody result be followed up with a HCV Nucleic Acid Amplification test (865641). Performed By: #### H REX #### [facility] [address] [place] [address] Helio Krishna HIV 1 AND 2 WITH REFLEXon HIV Screen 4th Generation wRfx Non Reactive Normal Non Reactive [facility] Comment on above: Performed By: #### A ROMY #### [facility] [address] [place] [address] Helio Krishna RPR QUANTon 11-22-2019 Rapid Plasma Reagin, Quant Non Reactive Normal NonRea<1:1 [facility] Comment on above: Performed By: #### A ROMY #### [facility] [address] [place] [address] Helio Krishna RUBELLA AB IGGon 11-22-2019 Rubella Antibodies, IgG 1.49 index Normal Immune >0.99 [facility] Comment on above: Result Comment: Non- immune <0.90 Equivocal 0.90 - 0.99 Immune >0.99 Performed By: #### A ROMY #### [facility] [address] [place] [address] Helio Krishna VARICELLA IGG ABon 0 Varicella Zoster IgG <135 Critically low Immune >165 [facility] Comment on above: Result Comment: Nega tive <135 Equivocal 135 - 165 Positive >165 A positive result generally indicates exposure to the pathogen or administration of specific immunoglobulins, but it is not indication of active infection or stage of disease. Performed By: #### A ROMY #### [facility] [address] [place] [address] Helio Krishna CBC AUTO DIFFon 11-21-2019 Basophils (Bld) [#/Vol] 0.0 103/ul Normal 0.0-0.1 [facility] Comment on above: Performed By: #### C BC #### [facility] [address] [place] [address] Helio Erendira Basophils/100 WBC (Bld) 0.3 % Normal 0.2-2.0 [facility] Comment on above: Performed By: #### C BC #### [facility] [address] [place] [address] Helio Erendira Eosinophils (Bld) [#/Vol] 0.1 103/ul Normal 0.0-0.7 [facility] Comment on above: Performed By: #### C BC #### [facility] [address] [place] [address] Helio Erendira Eosinophils/100 WBC (Bld) 0.8 % Critically low 0.9-7.0 [facility] Comment on above: Performed By: #### C BC #### [facility] [address] [place], [place] [address] Helio Krishna Erythrocyte distribution width (RBC) [Ratio] 12.8 % Normal 11.0-15.0 [facility] Comment on above: Performed By: #### C BC #### [facility] [address] [place], [place] [address] Helio Krishna Hematocrit (Bld) [Volume fraction] 36.9 % Normal 36.0-48.0 [facility] Comment on above: Performed By: #### C BC #### [facility] [address] [place] [address] Helio Erendira Hemoglobin (Bld) [Mass/Vol] 12.7 g/dL Normal 12.0-16.0 [facility] Comment on above: Performed By: #### C BC #### [facility] [address] [place] [address] Helio Erendira IG # 0.05 10e3/ul Critically high 0.00-0.03 [facility] Comment on above: Performed By: #### C BC #### [facility] [address] [place] [address] Helio Erendira IG % 0.6 % Critically high 0.0-0.5 [facility] Comment on above: Performed By: #### C BC #### [facility] [address] [place], [place] [address] Helio Erendira Lymphocytes (Bld) [#/Vol] 1.2 103/ul Normal 1.2-3.8 [facility] Comment on above: Performed By: #### C BC #### [facility] [address] [place] [address] Helio Krishna Lymphocytes/100 WBC (Bld) 13.6 % Critically low 20.5-60.0 [facility] Comment on above: Performed By: #### C BC #### [facility] [address] [place], [place] [address] Helio Krishna MANUAL DIFF REQ NO Normal [facility] Comment on above: Performed By: #### C BC #### [facility] [address] [place], [place] [address] Helio Guen MCH (RBC) [Entitic mass] 30.0 pg Normal 26.7-34.0 [facility] Comment on above: Performed By: #### C BC #### [facility] [address] [place], [place] [address] Helio Krishna MCHC (RBC) [Mass/Vol] 34.4 g/dL Normal 29.9-35.2 [facility] Comment on above: Performed By: #### C BC #### [facility] [address] [place], [place] [address] Helio Krishna MCV (RBC) [Entitic vol] 87.2 fL Normal 81.0-99.0 [facility] Comment on above: Performed By: #### C BC #### [facility] [address] [place], [place] [address] Helio Erendira Monocytes (Bld) [#/Vol] 0.6 103/ul Normal 0.3-0.8 [facility] Comment on above: Performed By: #### C BC #### [facility] [address] [place], [place] [address] Helio Krishna Monocytes/100 WBC (Bld) 6.7 % Normal 1.7-12.0 [facility] Comment on above: Performed By: #### C BC #### [facility] [address] [place], [place] [id number] Helio Erendira Neutrophils (Bld) [#/Vol] 6.9 103/ul Critically high 1.4-6.5 The [facility] Comment on above: Performed By: #### C BC #### [facility] [address] [place], [place] [id number] Helio Krishna Neutrophils/100 WBC (Bld) 78.0 % Critically high 43.0-75.0 The [facility] Comment on above: Performed By: #### C BC #### [facility] [address] [place], [place] [id number] Helioari Krishna Platelet mean volume (Bld) [Entitic vol] 9.8 fL Normal 9.5-13.5 [facility] Comment on above: Performed By: #### C BC #### [facility] [address] [id number] Helioari Krishna Platelets (Bld) [#/Vol] 200 103/ul Normal 150-450 [facility] Comment on above: Performed By: #### C BC #### [facility] [address] [place], [place] [id number] Helioari Krishna RBC (Bld) [#/Vol] 4.23 106/ul Normal 4.20-5.40 The [facility] Comment on above: Performed By: #### C BC #### [facility] [address] [place], [place] [address] Helioari Guen WBC (Bld) [#/Vol] 8.8 103/ul Normal 4.0-11.0 [facility] Comment on above: Performed By: #### C BC #### [facility] [address] [place], [place] [address] Helio Erendira CULTURE URINEon 11-21-2019 CULTURE URINE Culture Observations: No growth Normal [facility] Comment on above: Performed By: #### A ROMY #### [facility] [address] [place], [place] [address] Helio Erendira DRUG SCREEN RAPID (URINE)on 11-21-2019 AMP Negative Normal NEGATIVE [facility] Comment on above: Performed By: #### D CHEMA UAMIC #### [facility] [address] [place], [place] [address] Helio Erendira BAR Negative Normal NEGATIVE The [facility] Comment on above: Performed By: #### D CHEMA, UAMIC #### [facility] [address] [place] [address] Helio Erendira BUP Negative Normal NEGATIVE The [facility] Comment on above: Performed By: #### D CHEMA, UAMIC #### [facility] [address] [place], [place] [address] Helio Erendira BZO Negative Normal NEGATIVE The [facility] Comment on above: Performed By: #### D CHEMA, UAMIC #### [facility] [address] [place], [place] [address] Helio Erendira JAYLA Negative Normal NEGATIVE The [facility] Comment on above: Performed By: #### D CHEMA UAMIC #### [facility] [address] [place] [address] Helio Erendira CUT-OFFS SEE BELOW Normal [facility] Comment on above: Result Comment: AMP [...] Performed By: #### Roque BEAR UAMIC #### [facility] [address] [place] [address] DRUG CUT HEADER DRUG CLASS TEST SYSTEM CUT-OFF CONCENTRATIONS ARE FOLLOWS: Normal The [facility] Comment on above: Performed By: #### Roque BEAR UAMIC #### [facility] [address] [place] [address] Helio Erendira mAMP Negative Normal NEGATIVE The [facility] Comment on above: Performed By: #### Roque BEAR UAMIC #### [facility] [address] [place] [address] Helio Erendira MTD Negative Normal NEGATIVE The [facility] Comment on above: Performed By: #### Roque BEAR UAMIC #### [facility] [address] [place] [address] Helio Erendira OPI Negative Normal NEGATIVE The [facility] Comment on above: Performed By: #### Roque BEAR UAMIC #### [facility] [address] [place] [address] Helio Erendira OXY Negative Normal NEGATIVE The [facility] Comment on above: Performed By: #### Roque BEAR UAMIC #### [facility] [address] [address] Helio Krishna PCP Negative Normal NEGATIVE [facility] Comment on above: Performed By: #### D CHEMA, UAMIC #### [facility] [address] [address] Helio Krishna PPX Negative Normal NEGATIVE [facility] Comment on above: Performed By: #### D CHEMA, UAMIC #### [facility] [address] [address] Helioari Krishna TCA Negative Normal NEGATIVE [facility] Comment on above: Performed By: #### D CHEMA, UAMIC #### [facility] [address] [place] [address] Helio Krishna THC Negative Normal NEGATIVE [facility] Comment on above: Performed By: #### D CHEMA UAMIC #### [facility] [address] [place] [address] Helio Krishna GLYCOHEMOGLOBIN A1Con 2019 Glucose [Mass/Vol] 94 mg/dL Normal [facility] Comment on above: Performed By: #### A 1C #### [facility] [address] [place] [address] Helio Krishna HbA1c (Bld) [Mass fraction] 4.9 % Normal <=6.0 [facility] Comment on above: Performed By: #### A 1C #### [facility] [address] [place] [address] Helio Krishna PREG QUANT HCGon 11-21-2019 HCG QUANT 99094.00 mIU/mL Normal The [facility] Comment on above: Performed By: #### P REGQNT #### [facility] [address] [place] [address] Helio Krishna HCG RANGE SEE BELOW Normal [facility] Comment on above: Result Comment: 5-50 0-1 WEEK 40-300 1-2 WEEKS 100-1,000 2-3 WEEKS 500-6,000 3-4 WEEKS 5,000-200,000 1-2 MONTHS 10,000-100,000 2-3 MONTHS 3,000-50,000 2ND TRIMESTER 1,000-50,000 3RD TRIMESTER Performed By: #### P REGQNT #### [facility] [address] [place] [address] Helio Erendira TYPE AND SCREENon 11-21-2019 TYPE AND SCREEN Negative Normal [facility] Comment on above: Performed By: #### T NS #### [facility] [address] [place] [address] Helio Erendira UA RANDOM W/MICROSCOPICon Bacteria LM.HPF (Urine sed) [#/Area] TRACE Normal NONE SEEN The [facility] Comment on above: Performed By: #### D CHEMA UAMIC #### [facility] [address] [place] [address] Helio Erendira Bilirubin [Mass/Vol] Negative Normal NEGATIVE [facility] Comment on above: Performed By: #### Roque BEAR UAMIC #### [facility] [address] [place] [address] Helio Erendira BLOOD Negative Normal NEGATIVE The [facility] Comment on above: Performed By: #### Roque BEAR UAMIC #### [facility] [address] [place] [address] Helio Erendira CAST NONE SEEN Normal NONE SEEN [facility] Comment on above: Performed By: #### Roque BEAR UAMIC #### [facility] [address] [place] [address] Heilo Erendira Clarity (U) CLEAR Normal [facility] Comment on above: Performed By: #### Roque BEAR UAMIC #### [facility] [address] [place] [address] Helio Erendira Color (U) LT. YELLOW Normal YELLOW [facility] Comment on above: Performed By: #### Roque BEAR UAMIC #### [facility] [address] [place] [address] Helio Erendira Crystals LM Nom (Urine sed) NONE SEEN Normal NONE SEEN [facility] Comment on above: Performed By: #### Roque BEAR UAMIC #### [facility] [address] [place] [address] Helio Erendira Epithelial cells LM.HPF (Urine sed) [#/Area] RARE Normal [facility] Comment on above: Performed By: #### D CHEMA UAMIC #### [facility] [address] [id number] Helio Erendira Glucose [Mass/Vol] Negative Normal NEGATIVE The [facility] Comment on above: Performed By: #### D CHEMA, UAMIC #### [facility] [address] [id number] Helio Erendira Ketones Ql (U) Negative Normal NEGATIVE The [facility] Comment on above: Performed By: #### D CHEMA, UAMIC #### [facility] [address] [place], [place] [address] Helio Erendira MUCOUS NONE SEEN Normal NONE SEEN The [facility] Comment on above: Performed By: #### D CHEMA, UAMIC #### [facility] [address] [place], [place] [address] Helio Erendira Nitrite Ql (U) Negative Normal NEGATIVE The [facility] Comment on above: Performed By: #### D CHEMA, UAMIC #### [facility] [address] [place] [address] Helio Erendira pH (Bld) 7.0 Normal 5-9 [facility] Comment on above: Performed By: #### Roque BEAR, UAMIC #### [facility] [address] [place], [place] [address] Helio Erendira Protein [Mass/Vol] Negative Normal The [facility] Comment on above: Performed By: #### D CHEMA, UAMIC #### [facility] [address] [place], [place] [address] Helio Erendira RBC (Bld) [#/Vol] NONE SEEN Normal 0-2 [facility] Comment on above: Performed By: #### D CHEMA, UAMIC #### [facility] [address] [place], [place] [address] Helio Erendira SPEC GRAVITY 1.010 Normal 1.005-<=1.025 [facility] Comment on above: Performed By: #### Roque BEAR, UAMIC #### [facility] [address] [place], [place] [address] Helio Erendira Urobilinogen Qn (U) 0.2 EU/dl Normal The [facility] Comment on above: Performed By: #### D PEARLD, UAMIC #### [facility] [address] [place], [place] [address] Helio Erendira WBC (Bld) [#/Vol] SMALL Normal NEGATIVE [facility] Comment on above: Performed By: #### D RUGRPD, UAMIC #### [facility] [address] [place], [place] [address] Helio Erendira WBC (Bld) [#/Vol] 2-5 Normal NONE SEEN [facility] Comment on above: Performed By: #### D PEARLD, UAMIC #### [facility] [address] [place], [place] [address] Helio Erendira US PREG <14 WKSon 11-05-2019 US PREG <14 WKS Patient: SANGEETHA MELGOZA Exam Date: 11/05/2019 : 1995 Gender:F Ordering : DR. RAMONA JIMÉNEZ . Admission #: [id number] Family : Order #: [id number] CLICK HERE TO VIEW EXAM RADIOLOGY REPORT [...] M.D. on 11/06/2019 at 14:27 Normal The [facility] ABO AND RH TYPEon 10-28-2019 ABO and Rh group Nom (Bld) ABO Rh Typing A Rh Positive Normal [facility] Comment on above: Performed By: #### A ROMY #### [facility] [address] [place], [place] [address] Helio Krishna PREG QUANT HCGon 10-28-2019 HCG QUANT 87132.00 mIU/mL Normal [facility] Comment on above: Result Comment: Veri fied by dilution Performed By: #### P REGQNT #### [facility] [address] [place], [place] [address] Helio Krishna HCG RANGE SEE BELOW Normal [facility] Comment on above: Result Comment: 5-50 0-1 WEEK 40-300 1-2 WEEKS 100-1,000 2-3 WEEKS 500-6,000 3-4 WEEKS 5,000-200,000 1-2 MONTHS 10,000-100,000 2-3 MONTHS 3,000-50,000 2ND TRIMESTER 1,000-50,000 3RD TRIMESTER Performed By: #### P REGQNT #### [facility] [address] [id number] Helio Krishna Vital Signs Date Time Vital Sign Value Performing Clinician Facility 02-13-2025 10:16-0400 Body height 157.5 cm [facility] Nurse [facility] 02-13-2025 09:52-0400 Body mass index (BMI) [Ratio] 31.64 kg/m2 [facility] Nurse [facility] 02-13-2025 09:52-0400 Body weight 78.47 kg [facility] Nurse [facility] 02-13-2025 09:52-0400 Diastolic blood pressure 80 mm[Hg] [facility] Nurse [facility] 02-13-2025 09:52-0400 Systolic blood pressure 126 mm[Hg] [facility] Nurse [facility] 09-13-2024 18:18-0500 Body temperature 97.9 [degF] Evangelist Jenkins MD Work Phone: [facility] 09-13-2024 18:18-0500 Diastolic blood pressure 65 mm[Hg] Evangelist Jenkins MD Work Phone: [facility] 09-13-2024 18:18-0500 Systolic blood pressure 122 mm[Hg] Evangelist Jenkins MD Work Phone: [employer] 09-13-2024 18:17-0500 Body mass index (BMI) [Ratio] 32.92 kg/m2 Evangelist Jenkins MD Work Phone: [facility] [employer] 09-13-2024 18:17-0500 Body weight 81.65 kg Evangelist Jenkins MD Work Phone: [facility] [employer] 09-13-2024 18:17-0500 Heart rate 78 /min Evangelist Jenkins MD Work Phone: [employer] 09-13-2024 18:17-0500 Respiratory rate 16 /min Evangelist Jenkins MD Work Phone: [employer] 09-13-2024 18:17-0500 SaO2% (BldA) [Mass fraction] 98 % Evangelist Jenkins MD Work Phone: [employer] 06-10-2024 09:10-0400 Body weight 84.73 kg Monico Bethany DO Work Phone: [facility] 06-10-2024 09:10-0400 Diastolic blood pressure 64 mm[Hg] Monico Bethany DO Work Phone: [facility] 06-10-2024 09:10-0400 Systolic blood pressure 102 mm[Hg] Monico Bethany DO Work Phone: [facility] 06-03-2024 10:10-0400 Body weight 84.73 kg Sarita ROBERTO Work Phone: [facility] 06-03-2024 10:10-0400 Diastolic blood pressure 64 mm[Hg] Sarita ROBERTO Work Phone: [facility] 06-03-2024 10:10-0400 Systolic blood pressure 110 mm[Hg] Sarita ROBERTO Work Phone: [facility] 05-27-2024 10:47-0400 Body weight 85 kg Monico Bethany DO Work Phone: [facility] 05-27-2024 10:47-0400 Diastolic blood pressure 60 mm[Hg] Monico Bethany DO Work Phone: [facility] 05-27-2024 10:47-0400 Systolic blood pressure 114 mm[Hg] Monico Bethany DO Work Phone: [facility] 05-13-2024 08:40-0400 Body weight 83.46 kg Sarita Ballard PARDEEP Work Phone: [facility] 05-13-2024 08:40-0400 Diastolic blood pressure 74 mm[Hg] Sarita ROBERTO Work Phone: [facility] 05-13-2024 08:40-0400 Systolic blood pressure 122 mm[Hg] Sarita ROBERTO Work Phone: [facility] 09-25-2023 13:12-0500 Body height 157.5 cm [facility] 09-25-2023 13:12-0500 Body mass index (BMI) [Ratio] 28.72 kg/m2 [facility] 09-25-2023 13:12-0500 Body weight 71.22 kg [facility] 09-25-2023 13:12-0500 Diastolic blood pressure 86 mm[Hg] [facility] 09-25-2023 13:12-0500 Systolic blood pressure 116 mm[Hg] [facility] Encounters Encounter Date Encounter Type Care Provider Facility Start: 02-13-2025 End: 02-13-2025 Office outpatient visit 5 minutes [facility] Nurse [facility] Comment on above: GA: 13w2d Start: 02-13-2025 End: 02-13-2025 ambulatory MONICO BETHANY Not Available Start: 01-14-2025 End: 01-14-2025 Clinisync Result Encounter Monico Bethany DO Work Phone: [facility] External Department Unsolicited Start: 01-14-2025 End: 01-14-2025 Clinisync Result Encounter Monico Bethany DO Work Phone: [facility] External Department Unsolicited Start: 01-14-2025 End: 01-14-2025 ambulatory SARITA BEDOYA [facility] Start: 01-14-2025 End: 01-14-2025 Subsequent hospital visit by physician Sarita Bedoya INSTITUTIONAL RESEARCH COORDINATOR - LABEL TACKER Work Phone: [facility] Start: 09-13-2024 End: 09-13-2024 Emergency department patient visit Evangelist Jenkins MD Work Phone: [facility] Comment on above: Laceration of left m iddle finger without foreign body without damage to nail, initial encounter (Primary Dx) Start: 06-18-2024 End: 06-18-2024 Clinisync Result Encounter Monico Bethany DO Work Phone: [facility] External Department Unsolicited Start: 06-18-2024 End: 06-18-2024 Clinisync Result Encounter Monico Bethany DO Work Phone: [facility] External Department Unsolicited Start: 06-17-2024 End: 06-17-2024 Clinisync Result Encounter Monico Bethany DO Work Phone: [facility] External Department Unsolicited Start: 06-17-2024 End: 06-17-2024 Clinisync Result Encounter Monico Bethany DO Work Phone: [facility] External Department Unsolicited Start: 06-10-2024 End: 06-10-2024 Bamboo flowsheet Monico Bethany DO Work Phone: [facility] Start: 06-10-2024 End: 06-10-2024 Bamboo flowsheet Monico Bethany DO Work Phone: [facility] Start: 06-10-2024 End: 06-10-2024 Office outpatient visit 15 minutes Monico Bethany DO Work Phone: [facility] Comment on above: Third trimester preg lamine Start: 06-10-2024 End: 06-10-2024 ambulatory MONICO BETHANY Not Available Start: 06-03-2024 End: 06-03-2024 Bamboo flowsheet Sarita ROBERTO Work Phone: [facility] Start: 06-03-2024 End: 06-03-2024 Bamboo flowsheet Sarita Ballard PA Work Phone: [facility] Start: 06-03-2024 End: 06-03-2024 Office outpatient visit 15 minutes Sarita ROBERTO Work Phone: [facility] Comment on above: Third trimester preg lamine Start: 06-03-2024 End: 06-03-2024 ambulatory SARITA BALLARD Not Available Start: 05-27-2024 End: 05-27-2024 Bamboo flowsheet Monico Bethany DO Work Phone: [facility] Start: 05-27-2024 End: 05-27-2024 Bamboo flowsheet Monico Bethany DO Work Phone: [facility] Start: 05-27-2024 End: 05-27-2024 Office outpatient visit 15 minutes Monico Bethany DO Work Phone: [facility] Comment on above: 36 weeks gestation o f ; Third trimester Start: 05-27-2024 End: 05-27-2024 ambulatory MONICO BETHANY Not Available Start: 05-13-2024 End: 05-13-2024 Bamboo flowsheet Sarita ROBERTO Work Phone: [facility] Start: 05-13-2024 End: 05-13-2024 Bamboo flowsheet Sarita Ballard PA Work Phone: [facility] Start: 05-13-2024 End: 05-13-2024 Office outpatient visit 15 minutes Sarita ROBERTO Work Phone: [facility] Comment on above: Third trimester preg lamine; size inconsistent with dates Start: 05-13-2024 End: 05-13-2024 ambulatory SARITA BALLARD Not Available Start: 04-29-2024 End: 04-29-2024 ambulatory MONICO BETHANY Not Available Start: 04-15-2024 End: 04-15-2024 ambulatory SARITA BALLARD Not Available Start: 03-31-2024 End: 03-31-2024 ambulatory MONICO BETHANY Not Available Start: 03-03-2024 End: 03-03-2024 ambulatory MONICO BETHANY Not Available Start: 01-28-2024 End: 01-28-2024 Telephone encounter Sarita Salomon RDMS, RVT [facility] Start: 09-25-2023 End: 09-25-2023 [facility] Start: 09-25-2023 End: 09-25-2023 Office outpatient new 30 minutes [facility] Ob Site Leasing Agent [facility] [place] Comment on above: Encounter for IUD re moval (Primary Dx) Start: 05-21-2023 End: 05-21-2023 Subsequent hospital visit by physician Sarita Bedoya INSTITUTIONAL RESEARCH COORDINATOR - LABEL TACKER Work Phone: [facility] Start: 04-25-2023 ambulatory Sarita Basurtoempu t INSTITUTIONAL RESEARCH COORDINATOR-CONTACT OFFICER Facility:[facility] Start: 04-16-2023 End: 04-17-2023 ambulatory Sarita Basurtoemproselyn INSTITUTIONAL RESEARCH COORDINATOR-CONTACT OFFICER Facility:[facility] Start: 03-08-2023 End: 03-09-2023 ambulatory Sarita Basurtoemput INSTITUTIONAL RESEARCH COORDINATOR-CONTACT OFFICER Facility:[facility] Start: 05-25-2020 End: 05-26-2020 Evaluation and management [...] Start: 05-16-2016 End: 05-16-2016 Ambulatory Ebelechukw [facility]on [place] Facility:ARM Procedures Date Procedure Procedure Detail Performing Clinician Start: 02-13-2025 Urnls dip stick/tabl et rgnt non-auto w/o micrscp Monico Bethany DO Work Phone: Start: 01-14-2025 ALL HCG, QUANTITATIVE C orey Bethany DO Work Phone: Start: 01-14-2025 Gonadotropin chorion ic quantitative Monico Cholo Sims MD Work Phone: Start: 09-13-2024 Radex fingr minimum 2 views Evangelist Jenkins MD Work Phone: Start: 06-18-2024 ALL CBC WITH AUTO DIFF Monico Bethany DO Work Phone: Start: 06-17-2024 HMHP CBC WITH PLATEL ET NO DIFFERENTIAL Monico Bethany DO Work Phone: Start: 06-10-2024 Urnls dip stick/tabl et rgnt non-auto w/o micrscp Monico Bethany DO Work Phone: Start: 06-03-2024 Urnls dip stick/tabl et rgnt non-auto w/o micrscp Sarita ROBERTO Work Phone: Start: 05-27-2024 Urnls dip stick/tabl et rgnt non-auto w/o micrscp Monico Bethany DO Work Phone: Start: 05-13-2024 Urnls dip stick/tabl et rgnt non-auto w/o micrscp Sarita ROBERTO Work Phone: Start: 05-21-2023 Toxin/antitoxin assa y tissue culture Sarita Pravin Aureliano INSTITUTIONAL RESEARCH COORDINATOR - LABEL TACKER Work Phone: Start: 05-26-2020 Delivery of Products of Conception, External Approach RAMONA JIMÉNZE Start: 05-26-2020 Drainage of Amniotic Fluid, Therapeutic from Products of Conception, Via Natural or Artificial Opening RAMONA JIMÉNEZ Start: 05-25-2020 Introduction of Horm one into Female Reproductive, Via Natural or Artificial Opening RAMONA JIMÉNEZ Plan of Treatment Date Care Activity Detail Author Start: 09-23-2032 DTaP,Tdap and Td Vac cines (3 - Td or Tdap) DTaP,Tdap and Td Vaccines (3 - Td or Tdap) [facility] Start: 09-23-2032 DTaP/Tdap/Td vaccine (3 - Td or Tdap) DTaP/Tdap/Td vaccine (3 - Td or Tdap) [facility] Start: 04-17-2025 Influenza vaccination Flu vacc ine (Season Ended) [facility] Start: 03-03-2025 End: 03-03-2025 Patient encounter procedure 03/03/2025 9:50 AM EDT Routine [facility] [address] [place] [id number] Monico Sims, DO [address] [place] [address] [facility] Start: 02-13-2025 End: 02-13-2026 ABO/Rh ABO/Rh Lab Routine Missed menses , unspecified gestational age Expected: 02/13/2025 (Approximate), Expires: 02/13/2026 [facility] Comment on above: Expected: 02/13/2025 (Approximate), Expires: 02/13/2026 Start: 02-13-2025 End: 02-13-2026 Blood type and Indirect antibody screen panel - Blood Type and screen Lab Routine Missed menses , unspecified gestational age Expected: 02/13/2025 (Approximate), Expires: 02/13/2026 [facility] Comment on above: Expected: 02/13/2025 (Approximate), Expires: 02/13/2026 Start: 02-13-2025 End: 02-13-2026 Drugs of abuse panel - Urine by Screen method Rapid drug screen, urine Lab Routine , unspecified gestational age Encounter for supervision of normal first in first trimester Expected: 02/13/2025 (Approximate), Expires: 02/13/2026 [facility] Comment on above: Expected: 02/13/2025 (Approximate), Expires: 02/13/2026 Start: 02-05-2025 End: 05-08-2025 US Pelvis transvaginal US OB transvaginal Imaging Routine Missed menses Expected: 02/05/2025, Expires: 05/08/2025 [facility] Work Phone: Comment on above: Expected: 02/05/2025 , Expires: 05/08/2025 Start: 09-25-2024 Adult BMI Screening Adult BMI Screen ing [facility] Start: 09-25-2024 Tobacco Screening Tobacco Screening [facility] Start: 06-10-2024 End: 06-10-2024 Patient encounter procedure [facility] Comment on above: Arrived Start: 06-03-2024 End: 06-03-2024 Patient encounter procedure [facility] Comment on above: Arrived Start: 05-27-2024 End: 05-27-2025 Strep B DNA probe, amplification Strep B DNA probe, amplification Lab Routine Third trimester Expected: 05/27/2024 (Approximate), Expires: 05/27/2025 [facility] Work Phone: Comment on above: Expected: 05/27/2024 (Approximate), Expires: 05/27/2025 Start: 05-27-2024 End: 05-27-2024 Patient encounter procedure [facility] Comment on above: Arrived Start: 05-18-2024 COVID-19 Vaccine ( season) COVID-19 Vaccine ( season) [facility] Start: 05-18-2024 COVID-19 Vaccine ( season) COVID-19 Vaccine () [facility] Start: 05-18-2024 Influenza vaccination Influenza Vacc ine [facility] Start: 05-13-2024 End: 05-13-2025 US for US OB SCAN FOR GROWTH Imaging Routine size inconsistent with dates Expected: 05/13/2024 (Approximate), Expires: 05/13/2025 [facility] Work Phone: Comment on above: Expected: 05/13/2024 (Approximate), Expires: 05/13/2025 Start: 05-13-2024 End: 05-13-2024 Patient encounter procedure 05/13/2024 8:50 AM EDT Routine [facility] [address] [id number] Sarita Ballard PA [address] [place] [address] Arrived [facility] Comment on above: Arrived Start: 04-17-2024 Influenza vaccination Flu vaccine (# 1) [facility] Start: 05-18-2023 Influenza vaccination Influenza Vacc ine [facility] Start: 04-17-2023 Influenza vaccination Flu vaccine (# 1) [facility] Start: 12-04-2016 Screening for malign ant neoplasm of cervix Pap smear [facility] Start: 12-04-2014 Hepatitis B vaccine (1 of 3 - 19+ 3-dose series) Hepatitis B vaccine (1 of 3 - 19+ 3-dose series) [facility] Start: 12-04-2013 Adult BMI Follow Up Plan Adult BMI Follow Up Plan [facility] Start: 12-04-2013 Hepatitis C screening Hepatitis C sc reen [facility] Start: 12-04-2010 HIV screening HIV screen [facility] Start: 12-04-2008 Varicella vaccine (1 of 2 - 13+ 2-dose series) Varicella vaccine (1 of 2 - 13+ 2-dose series) [facility] Start: 2007 Depression Screen Depression Screen [facility] Start: 2007 Depression Screening Depression Scre ening [facility] Start: 12-04-1996 Varicella vaccine (1 of 2 - 2-dose childhood series) Varicella vaccine (1 of 2 - 2-dose childhood series) [facility] Start: 06-06-1996 COVID-19 Vaccine (#1) COVID-19 Vacci ne (#1) [facility] Bacteria identified in Urine by Culture Urine culture Microbiology Routine Missed menses Ordered: 02/13/2025 [facility] Comment on above: Ordered: 02/13/2025 CBC W Auto Different ial panel - Blood CBC and differential Lab Routine Missed menses , unspecified gestational age Ordered: 02/13/2025 [facility] Comment on above: Ordered: 02/13/2025 End: 05-21-2023 Gastrointestinal Panel, Molecular [facility] [employer] [facility] Work Phone: Comment on above: Once for 1 Occurrenc es starting 05/21/2023 until 05/21/2023 Hemoglobin A1c/Hemoglobin.total in Blood Hemoglobin A1c Lab Routine Missed menses , unspecified gestational age Ordered: 02/13/2025 [facility] Comment on above: Ordered: 02/13/2025 Hepatitis B virus de la rosa rface Ag [Presence] in Serum or Plasma by Immunoassay Hepatitis B surface antigen Lab Routine Missed menses , unspecified gestational age Ordered: 02/13/2025 [facility] Comment on above: Ordered: 02/13/2025 Hepatitis C virus Ab [Presence] in Serum or Plasma by Immunoassay Hepatitis C antibody Lab Routine Missed menses , unspecified gestational age Ordered: 02/13/2025 [facility] Comment on above: Ordered: 02/13/2025 HIV-1/HIV-2 antigen/antibody combination immunoassay HIV-1 and HIV-2 antibodies Lab Routine Missed menses , unspecified gestational age Ordered: 02/13/2025 [facility] Comment on above: Ordered: 02/13/2025 End: 05-21-2023 O&P PANEL (TRAVEL ASSOCIATED) #1 [facility] [employer] Comment on above: Once for 1 Occurrenc es starting 05/21/2023 until 05/21/2023 Reagin Ab [Presence] in Serum by RPR RPR Lab Routine Missed menses , unspecified gestational age Ordered: 02/13/2025 [facility] Comment on above: Ordered: 02/13/2025 Rubella antibody, IgG Rubella an tibody, IgG Lab Routine Missed menses , unspecified gestational age Ordered: 02/13/2025 [facility] Comment on above: Ordered: 02/13/2025 US Pelvis transvaginal US OB tra nsvaginal Imaging Routine Missed menses 02/13/2025 9:51 AM EDT [facility] Immunizations Immunization Date Immunization Notes Care Provider Elo [email or web address] 09-23-2022 tetanus toxoid, redu angelina diphtheria toxoid, and acellular pertussis vaccine, adsorbed [facility] Site Leasing Agent [facility] Payers Date Payer Category Payer Medicaid [employer] [facility] [id number] 2023-Present [address] [place] [id number] 2023 Medicaid (Managed Care) [facility] [id number] 2020 Unknown 2016 Private Health Insurance [id number] 1995 Unknown [id number] 2.840.1.761904.3.579.2. 593 1995 Unknown [id number] 2.840.1.474308.3.579.2. 593 1995 Unknown [id number] 2.840.1.665723.3.579.2. 593 1995 Unknown [id number] 2.840.1.504864.3.579.2. 593 1995 Unknown [id number] 2.840.1.813355.3.579.2. 593 1995 Unknown [id number] 2.16.840.1.728762.3.579.2. 593 1995 Unknown [id number] 2.16.840.1.899647.3.579.2. 593 1995 Unknown [id number] 2.16.840.1.969626.3.579.2. 593 1995 Unknown [id number] 2.16.840.1.057068.3.579.2. 593 1995 Unknown [id number] 2.16.840.1.828913.3.579.2. 593 1995 Unknown [id number] 2.16.840.1.835370.3.579.2. 593 1995 Unknown [id number] 2.16.840.1.449590.3.579.2. 196 1995 Unknown [id number] 2.16.840.1.563714.3.579.2. 196 1995 Unknown [id number] 2.16.840.1.554668.3.579.2. 196 1995 Unknown [id number] 2.16.840.1.009688.3.579.2. 196 1995 Unknown [id number] 2.16.840.1.865073.3.579.2. 1286 1995 Unknown [id number] 2.16.840.1.771991.3.579.2. 173 1995 Unknown [id number] 2.16.840.1.365873.3.579.2. 173 1995 Unknown [id number] 2.16.840.1.922457.3.579.2. 1259 1995 Unknown [id number] 2.16.840.1.509332.3.579.2. 1259 1995 Unknown [id number] 2.16.840.1.046555.3.579.2. 1259 1995 Unknown [id number] 2.16.840.1.835838.3.579.2. 9 1995 Unknown [id number] 2.16.840.1.122611.3.579.2. 1259 1995 Unknown [id number] 2.16.840.1.665543.3.579.2. 9 1995 Unknown [id number] 2.16.840.1.118676.3.579.2. 1259 1995 Unknown [id number] 2.16.840.1.633083.3.579.2. 9 1995 Unknown [id number] 2.16.840.1.396488.3.579.2. 9 1995 Unknown [id number] 2.16.840.1.072826.3.579.2. 1259 1959 Unknown [id number] Social History Date Type Detail Facility Start: 09-23-2022 End: 04-16-2023 Tobacco smoking status AZIS Never smoked tobacco [facility] Start: 09-23-2022 End: 04-16-2023 Tobacco use and exposure Smokeless tobacco non-user [facility] Start: 1995 Sex Assigned At Not on file [facility] Tobacco smoking status [facility] Tobacco smoking consumption unknown [facility] Start: 10-02-2023 [facility] Start: 09-23-2022 End: 04-16-2023 Gender identity Not on file [facility] Start: 09-23-2022 End: 04-16-2023 History of Social function [facility] Read-Only, Retired: Physical Abuse Denies [facility] Start: 09-25-2023 Alcohol intake Ex-drinker (finding) [facility] Start: 04-28-2019 Sex Female (finding) [facility] Clinical Notes 09-25-2023 to 02-13-2025 Rosana Montague MA - 02/13/2025 10:00 AM EDTDischarge InstructionsAttachmentsErendira Martinez LPN - 06/10/2024 9:00 AM PARDEEP Campo - 06/03/2024 10:10 AM PARDEEP Campo - 05/13/2024 8:50 AM EDT Note Date & Type Note Facility 02-13-2025 History of Presen t illness Narrative Reason for Appointment: Patient ID: Sangeetha Melgoza is a 29 y.o. female who presents for Amenorrhea Patient presents today for a Nurse OB Intake appointment. Patient is 13w2d with a Estimated Date of Delivery: 08/19/25 OB History Para Term AB Living 4 3 3 3 SAB IAB Ectopic Multiple Live Births 3 # Outcome Date GA Lbr Cholo/2nd Weight Sex Type Anes PTL Lv 4 Current 3 Term 06/17/24 39w0d F Vag-Spont N IMTIAZ 2 Term 05/26/20 39w5d 7 lb 11 oz F Vag-Spont EPI N IMTIAZ 1 Term 05/13/16 40w0d 6 lb 11 oz M Vag-Spont None N IMTIAZ Current Medications: has a current medication list which includes the following prescription(s): iron polysaccharides and vit-fe fumarate-fa. Medical History: Active Ambulatory Problems Diagnosis Date Noted Missed menses 12/11/2023 Resolved Ambulatory Problems Diagnosis Date Noted No Resolved Ambulatory Problems Past Medical History: Diagnosis Date Anemia Family History Problem Relation Name Age of Onset Seizures Father Social History Tobacco Use Smoking status: Not on file Smokeless tobacco: Not on file Substance Use Topics Alcohol use: Not on file Drug use: Not on file No past surgical history on file. Allergies Allergen Reactions Latex Hives Cortisone Rash Vitals: Estimated body mass index is 31.64 kg/m as calculated from the following: Height as of this encounter: 5' 2 . Weight as of this encounter: 173 lb. BP: 126/80 No LMP recorded (lmp unknown). Patient is . Assessment/Plan Diagnoses and all orders for this visit: Missed menses - US OB transvaginal; Future - Type and screen; Future - ABO/Rh; Future - CBC and differential - Hemoglobin A1c - RPR - Rubella antibody, IgG - Hepatitis B surface antigen - Hepatitis C antibody - HIV-1 and HIV-2 antibodies - Urine culture - POCT , urine manually resulted - POCT urinalysis dipstick manually resulted , unspecified gestational age - Type and screen; Future - ABO/Rh; Future - CBC and differential - Hemoglobin A1c - RPR - Rubella antibody, IgG - Hepatitis B surface antigen - Hepatitis C antibody - HIV-1 and HIV-2 antibodies - Rapid drug screen, urine; Future Encounter for supervision of normal first in first trimester - Rapid drug screen, urine; Future Nurse Note: OB Intake: Patient presents today for first OB visit. Patients history has been reviewed in great detail including any potential risks. Patient signed consent forms and patient desires testing in both trimesters. Patient currently has no complaints and has been advised to drink 6-8 glasses of water a day, eat no raw or undercooked meat, and stay away from [facility]. Patient has also been advised to not change litter boxes and eat 6 small meals a day. Patient has been consulted regarding the do's and don'ts of . Patient was given labs and all questions and concerns were answered. Follow Up: Patient is to have labs drawn at directed and return to office for initial OB appointment with provider in 2 weeks. Patient may call office as needed with any concerns or questions. Nurse Visit Completed by: Rosana Montague MA documented in this encounter [facility] 09-13-2024 [facility] Discharg Evangelist Scherer MD - 09/13/2024 7:07 PM EST Go to your primary care physician or return to the emergency department in 5 days to have your sutures removed. For pain use acetaminophen (Tylenol) or ibuprofen (Motrin / Advil), unless prescribed medications that have acetaminophen or ibuprofen (or similar medications) in it. You can take over the counter acetaminophen tablets (1 - 2 tablets of the 500-mg strength every 6 hours) or ibuprofen tablets (2 tablets every 4 hours). You can shower with the laceration, would avoid baths or swimming in [place]. Apply bacitracin / triple antibiotic ointment / Neosporin / Vaseline to the wound twice a day. When you go outside, place sunscreen on the healing wound after the sutures have been removed for the next year to help with scarring. PLEASE RETURN TO THE EMERGENCY DEPARTMENT IMMEDIATELY for worsening symptoms, redness around the wound or redness streaking up the body part, white drainage from the wound, or if you develop any concerning symptoms such as: high fever not relieved by acetaminophen (Tylenol) and/or ibuprofen (Motrin / Advil), chills, shortness of breath, chest pain, feeling of your heart fluttering or racing, persistent nausea and/or vomiting, vomiting up blood, blood in your stool, numbness, loss of consciousness, weakness or tingling in the arms or legs or change in color of the extremities, changes in mental status, persistent headache, blurry vision, loss of bladder / bowel control, unable to follow up with your physician, or other any other care or concern. The following attachments cannot be sent through Care Everywhere.Hand Laceration: Stitches ([place]akut)documented in this encounter [facility] 06-10-2024 History of Presen t illness Narrative Reason for Appointment: Patient ID: Sangeetha Melgoza is a 28 y.o. female who presents for Routine Visit Patient presents today for Return OB appointment. MEDICATIONS Current Outpatient Medications Medication Instructions iron polysaccharides (PROFE) 391.3 mg, Oral, Daily Vit-Fe Fumarate-FA ( VITAMIN PO) Oral ALLERGIES Allergies Allergen Reactions Latex Hives Cortisone Rash PROBLEMS Active Ambulatory Problems Diagnosis Date Noted Missed menses 12/11/2023 Resolved Ambulatory Problems Diagnosis Date Noted No Resolved Ambulatory Problems Past Medical History: Diagnosis Date Anemia HISTORY PAST MEDICAL HISTORY SOCIAL HISTORY Past Medical History: Diagnosis Date Anemia Social History Tobacco Use Smoking status: Not on file Smokeless tobacco: Not on file Substance Use Topics Alcohol use: Not on file Drug use: Not on file FAMILY HISTORY Family History Problem Relation Name Age of Onset Seizures Father SURGICAL HISTORY History reviewed. No pertinent surgical history. REVIEW OF SYSTEMS Review of Systems: Review of Systems Constitutional: Negative. HENT: Negative. Eyes: Negative. Respiratory: Negative. Cardiovascular: Negative. Gastrointestinal: Negative. Genitourinary: Negative. Musculoskeletal: Negative. Skin: Negative. Neurological: Negative. All other systems reviewed and are negative. Hematological: Negative. Endocrine: Negative. Allergic/Immunologic: Negative. OBJECTIVE Objective: Physical Exam Constitutional: Appearance: Normal appearance. She is well-developed. Genitourinary: Vulva normal. Cardiovascular: Rate and Rhythm: Normal rate and regular rhythm. Pulmonary: Effort: Pulmonary effort is normal. Breath sounds: Normal breath sounds. Abdominal: General: Bowel sounds are normal. There is no distension. Palpations: Abdomen is soft. Tenderness: There is no abdominal tenderness. There is no guarding or rebound. Musculoskeletal: General: No swelling. Normal range of motion. Right lower leg: No edema. Left lower leg: No edema. Neurological: Mental Status: She is alert and oriented to person, place, and time. Skin: General: Skin is warm and dry. Psychiatric: Mood and Affect: Mood normal. Behavior: Behavior normal. Vitals and nursing note reviewed. Exam conducted with a child support officer present. Vitals: There is no height or weight on file to calculate BMI. BP: 102/64 No LMP recorded. Patient is . ASSESSMENT & PLAN ICD-10-CM 1. Third trimester Z34.93 POCT urinalysis dipstick manually resulted Return OB: Patient presents today for a routine obstetrics appointment. Patient is currently 38w0d . Patient states she is doing well but has complaints of being tired due to current . Patient has verbalizes frequent movement. labor precautions was discussed/given and patient was instructed to perform kick counts three times a day. pT TO BE INDUCED ON 06/17/24. AT 0500. Orders Placed This Encounter Procedures POCT urinalysis dipstick manually resulted Follow Up: Patient is to return to office in 1 week for routine OB appointment. Documented by Erendira Martinez LPN on behalf of: Monico Sims DO documented in this encounter [facility] 06-03-2024 History of Presen t illness Narrative Reason for Appointment: Patient ID: Sangeetha Melgoza is a 28 y.o. female who presents for Routine Visit Patient presents today for Return OB appointment. MEDICATIONS Current Outpatient Medications Medication Instructions iron polysaccharides (PROFE) 391.3 mg, Oral, Daily Vit-Fe Fumarate-FA ( VITAMIN PO) Oral ALLERGIES Allergies Allergen Reactions Latex Hives Cortisone Rash PROBLEMS Active Ambulatory Problems Diagnosis Date Noted Missed menses 12/11/2023 Resolved Ambulatory Problems Diagnosis Date Noted No Resolved Ambulatory Problems Past Medical History: Diagnosis Date Anemia HISTORY PAST MEDICAL HISTORY SOCIAL HISTORY Past Medical History: Diagnosis Date Anemia Social History Tobacco Use Smoking status: Not on file Smokeless tobacco: Not on file Substance Use Topics Alcohol use: Not on file Drug use: Not on file FAMILY HISTORY Family History Problem Relation Name Age of Onset Seizures Father SURGICAL HISTORY No past surgical history on file. REVIEW OF SYSTEMS Review of Systems: Review of Systems Constitutional: Negative. HENT: Negative. Eyes: Negative. Respiratory: Negative. Cardiovascular: Negative. Gastrointestinal: Negative. Genitourinary: Negative. Musculoskeletal: Negative. Skin: Negative. Neurological: Negative. All other systems reviewed and are negative. Hematological: Negative. Endocrine: Negative. Allergic/Immunologic: Negative. OBJECTIVE Objective: Physical Exam Constitutional: Appearance: Normal appearance. She is normal weight. HENT: Head: Normocephalic. Cardiovascular: Rate and Rhythm: Normal rate. Pulses: Normal pulses. Pulmonary: Effort: Pulmonary effort is normal. Breath sounds: Normal breath sounds. Abdominal: Palpations: Abdomen is soft. Musculoskeletal: General: Normal range of motion. Neurological: General: No focal deficit present. Mental Status: She is alert and oriented to person, place, and time. Psychiatric: Mood and Affect: Mood normal. Behavior: Behavior normal. Thought Content: Thought content normal. Judgment: Judgment normal. Vitals and nursing note reviewed. Vitals: There is no height or weight on file to calculate BMI. BP: 110/64 No LMP recorded. Patient is . ASSESSMENT & PLAN ICD-10-CM 1. Third trimester Z34.93 POCT urinalysis dipstick manually resulted Return OB: Patient presents today for a routine obstetrics appointment. Patient is currently 37w0d . Patient states she is doing well but has complaints of being tired due to current . Patient has verbalizes frequent movement. labor precautions was discussed/given and patient was instructed to perform kick counts three times a day. Orders Placed This Encounter Procedures POCT urinalysis dipstick manually resulted Follow Up: Patient is to return to office in 1 week for routine OB appointment. Documented by PARDEEP Joaquin on behalf of: PARDEEP Joaquin documented in this encounter [facility] 05-27-2024 History of Presen t illness Narrative Reason for Appointment: Patient ID: Sangeetha Melgoza is a 28 y.o. female who presents for Routine Visit Patient presents today for Return OB appointment. MEDICATIONS Current Outpatient Medications Medication Instructions iron polysaccharides (PROFE) 391.3 mg, Oral, Daily Vit-Fe Fumarate-FA ( VITAMIN PO) Oral ALLERGIES Allergies Allergen Reactions Latex Hives Cortisone Rash PROBLEMS Active Ambulatory Problems Diagnosis Date Noted Missed menses 12/11/2023 Resolved Ambulatory Problems Diagnosis Date Noted No Resolved Ambulatory Problems Past Medical History: Diagnosis Date Anemia HISTORY PAST MEDICAL HISTORY SOCIAL HISTORY Past Medical History: Diagnosis Date Anemia Social History Tobacco Use Smoking status: Not on file Smokeless tobacco: Not on file Substance Use Topics Alcohol use: Not on file Drug use: Not on file FAMILY HISTORY Family History Problem Relation Name Age of Onset Seizures Father SURGICAL HISTORY History reviewed. No pertinent surgical history. REVIEW OF SYSTEMS Review of Systems: Review of Systems Constitutional: Negative. HENT: Negative. Eyes: Negative. Respiratory: Negative. Cardiovascular: Negative. Gastrointestinal: Negative. Genitourinary: Negative. Musculoskeletal: Negative. Skin: Negative. Neurological: Negative. All other systems reviewed and are negative. Hematological: Negative. Endocrine: Negative. Allergic/Immunologic: Negative. OBJECTIVE Objective: Physical Exam Constitutional: Appearance: Normal appearance. She is well-developed. Genitourinary: Vulva normal. Cardiovascular: Rate and Rhythm: Normal rate and regular rhythm. Pulmonary: Effort: Pulmonary effort is normal. Breath sounds: Normal breath sounds. Abdominal: General: Bowel sounds are normal. There is no distension. Palpations: Abdomen is soft. Tenderness: There is no abdominal tenderness. There is no guarding or rebound. Musculoskeletal: General: No swelling. Normal range of motion. Right lower leg: No edema. Left lower leg: No edema. Neurological: Mental Status: She is alert and oriented to person, place, and time. Skin: General: Skin is warm and dry. Psychiatric: Mood and Affect: Mood normal. Behavior: Behavior normal. Vitals and nursing note reviewed. Exam conducted with a child support officer present. Vitals: There is no height or weight on file to calculate BMI. BP: 114/60 No LMP recorded. Patient is . ASSESSMENT & PLAN ICD-10-CM 1. 36 weeks gestation of Z3A.36 POCT urinalysis dipstick manually resulted 2. Third trimester Z34.93 Strep B DNA probe, amplification Patient is doing well but has complaints of being tired and having maternal discomfort due to . Patient verbalized frequent movement and was instructed to perform kick counts three times per day. labor precautions were given, LARC consent was signed/declined, and GBS was obtained. Cervical check was performed and patient is 2cm dilated. Orders Placed This Encounter Procedures Strep B DNA probe, amplification POCT urinalysis dipstick manually resulted Follow Up: Patient is to return to office in 1 week for routine OB appointment Documented by Erendira Martinez LPN on behalf of: Monico Sims DO documented in this encounter [facility] 05-13-2024 History of Presen t illness Narrative Reason for Appointment: Patient ID: Sangeetha Melgoza is a 28 y.o. female who presents for Routine Visit Patient presents today for Return OB appointment. MEDICATIONS Current Outpatient Medications Medication Instructions iron polysaccharides (PROFE) 391.3 mg, Oral, Daily Vit-Fe Fumarate-FA ( VITAMIN PO) Oral ALLERGIES Allergies Allergen Reactions Latex Hives Cortisone Rash PROBLEMS Active Ambulatory Problems Diagnosis Date Noted Missed menses 12/11/2023 Resolved Ambulatory Problems Diagnosis Date Noted No Resolved Ambulatory Problems Past Medical History: Diagnosis Date Anemia HISTORY PAST MEDICAL HISTORY SOCIAL HISTORY Past Medical History: Diagnosis Date Anemia Social History Tobacco Use Smoking status: Not on file Smokeless tobacco: Not on file Substance Use Topics Alcohol use: Not on file Drug use: Not on file FAMILY HISTORY No family history on file. SURGICAL HISTORY History reviewed. No pertinent surgical history. REVIEW OF SYSTEMS Review of Systems: Review of Systems Constitutional: Negative. HENT: Negative. Eyes: Negative. Respiratory: Negative. Cardiovascular: Negative. Gastrointestinal: Negative. Genitourinary: Negative. Musculoskeletal: Negative. Skin: Negative. Neurological: Negative. All other systems reviewed and are negative. Hematological: Negative. Endocrine: Negative. Allergic/Immunologic: Negative. OBJECTIVE Objective: Physical Exam Constitutional: Appearance: Normal appearance. She is normal weight. HENT: Head: Normocephalic. Cardiovascular: Rate and Rhythm: Normal rate. Pulses: Normal pulses. Pulmonary: Effort: Pulmonary effort is normal. Breath sounds: Normal breath sounds. Abdominal: Palpations: Abdomen is soft. Musculoskeletal: General: Normal range of motion. Neurological: General: No focal deficit present. Mental Status: She is alert and oriented to person, place, and time. Psychiatric: Mood and Affect: Mood normal. Behavior: Behavior normal. Thought Content: Thought content normal. Judgment: Judgment normal. Vitals and nursing note reviewed. Vitals: There is no height or weight on file to calculate BMI. BP: 122/74 No LMP recorded. Patient is . ASSESSMENT & PLAN ICD-10-CM 1. Third trimester Z34.93 POCT urinalysis dipstick manually resulted 2. size inconsistent with dates O26.849 US OB SCAN FOR GROWTH Return OB: Patient presents today for a routine obstetrics appointment. Patient is currently 34w0d . Patient states she is doing well but has complaints of being tired due to current . Patient has verbalizes frequent movement. labor precautions was discussed/given and patient was instructed to perform kick counts three times a day. Orders Placed This Encounter Procedures US OB SCAN FOR GROWTH POCT urinalysis dipstick manually resulted Follow Up: Patient is to return to office in 2 week for routine OB appointment. Documented by PARDEEP Joaquin on behalf of: PARDEEP Joaquin documented in this encounter [facility] 01-28-2024 Miscellaneous Notes Called and spoke to nurse Jacqueline in Dr. Sims's office regarding order sent to [facility]. Order for EFW percentile at 6th percentile on ultrasound done at [facility]. Explained that they used 06/17/24 as the VANGIE on that ultrasound instead of the document VANGIE of 06/24/24. Office called [facility] and they are recalculating the report and sending an addendum. Order can be disregarded. documented in this encounter [facility] 01-28-2024 Telephone encounter Note Called and spoke to nurse Jacqueline in Dr. Sims's office regarding order sent to [facility]. Order for EFW percentile at 6th percentile on ultrasound done at [facility]. Explained that they used 06/17/24 as the VANGIE on that ultrasound instead of the document VANGIE of 06/24/24. Office called [facility] and they are recalculating the report and sending an addendum. Order can be disregarded. [facility] 09-25-2023 History of Presen t illness Narrative [...] APRN-CNP 09/25/23 1344 documented in this encounter [facility] Evaluation note Diagnosis Third trimester state, incidental documented in this encounter [facility]* Diagnosis Third trimester state, incidental size inconsistent with dates documented in this encounter [facility]* Diagnosis 36 weeks gestation of Third trimester state, incidental documented in this encounter [facility]* Diagnosis Third trimester state, incidental documented in this encounter [facility]* Diagnosis Laceration of left middle finger without foreign body without damage to nail, initial encounter- Primary [facility] Diagnosis Encounter for IUD removal- Primary documented in this encounter [facility]* Diagnosis Missed menses , unspecified gestational age Encounter for supervision of normal first in first trimester documented [facility] Attachments The following attachments cannot be sent through Care Everywhere. * How to plan and prepare for a healthy ([place]akut) [facility]ructionsNot on [facility] in [facility] Summary Purpose Family History No Family History [...] section and content) DATE CREATED AUTHOR 03/13/2018 [facility] DATE CREATED AUTHOR AUTHOR'S ORGANIZ ATION 06/02/2020 [facility] DATE CREATED AUTHOR AUTHOR'S ORGANIZ ATION 04/26/2023 [facility] DATE CREATED AUTHOR AUTHOR'S ORGANIZ ATION 09/30/2023 [facility] DATE CREATED AUTHOR AUTHOR'S ORGANIZ ATION 01/15/2025 [facility] DATE CREATED AUTHOR AUTHOR'S ORGANIZ ATION 02/16/2025 [facility] Care Teams (unrecognized sec tion and content) Studio Hand Relationship Specialty Start Date End Date Sarita Bedoya APRN - LABEL TACKER [address] [place] [address] PCP - General Certified Clinical Nurse Specialist 04/16/23 Studio Hand Relationship Specialty Start Date End Date Sarita Bedoya APRN - LABEL TACKER [address] [place] [address] PCP - General Certified Clinical Nurse Specialist 04/16/23 Studio Hand Relationship Specialty Start Date End Date Sarita Bedoya APRN-CONTACT OFFICER [address] [address] PCP - General Nurse Practitioner 05/05/21 Studio Hand Relationship Specialty Start Date End Date Sarita Bedoya APRN-CONTACT OFFICER [address] [facility] [address] [place] [address] PCP - General Nurse Practitioner 05/05/21 Studio Hand Relationship Specialty Start Date End Date Sarita Bedoya APRN - LABEL TACKER [address] [place] [address] PCP - General Certified Clinical Nurse Specialist 04/16/23 Reason for Visit (unrecogniz ed section and content) Reason Comments Routine Visit Reason Comments Laceration Laceration to left m iddle finger from opening a can. Reason Comments Contraception IUD Removal Reason Comments Amenorrhea Scheduled Active and Recently Administ ered Medications (unrecognized section and content) Medication Order 09/11/2024 09/12/2024 09/13/2024 lidocaine PF 1 % injection 5 mL 5 mL, Other, ONCE, 1 dose, On 09/13/24 at 1830 1830 (Due) FOR RECORDS PERTAINING TO PATIENTS WHO ARE [...] BE BASED ON THE PRIMARY CLINICAL RECORDS. [employer] [facility]. provides no warranty or guarantee of the accuracy or completeness of information in this document.
[2025-03-02 08:54] LABS: BOX Test Reference Lab UNITY; BOX Test Sent Out UNITY
[2025-03-02 09:01] LABS: Basophils Percent Auto 0.3 % (0.2-2.0); Eosinophils Absolute Auto 0.1 10^3/uL (0.0-0.7); Eosinophils Percent Auto 0.9 % (0.9-7.0); Hematocrit 32.5 % (36.0-48.0); Hemoglobin 10.8 g/dL (12.0-16.0); Immature Granulocytes Abs Auto 0.03 10^3/uL (0.00-0.03); Immature Granulocytes Pct Auto 0.4 % (0.0-0.5); Lymphocytes Absolute Auto 1.2 10^3/uL (1.2-3.8); Lymphocytes Percent Auto 16.1 % (20.5-60.0); Mean Corpuscular HGB Conc 33.2 g/dL (29.9-35.2); Mean Corpuscular Hemoglobin 26.6 pg (26.7-34.0); Mean Platelet Volume 10.7 fL (9.5-13.5); Monocytes Absolute Auto 0.5 10^3/uL (0.3-0.8); Monocytes Percent Auto 6.3 % (1.7-12.0); Neutrophils Absolute Auto 5.8 10^3/uL (1.4-6.5); Platelet Count 190 10^3/uL (150-450); Red Blood Count 4.06 10^6/uL (4.20-5.40); White Blood Count 7.6 10^3/uL (4.0-11.0)
[2025-03-02 09:09] LABS: Estimated Average Glucose 103 mg/dL; Glycohemoglobin A1C 5.2 % (4.5-6.2)
[2025-03-02 10:02] LABS: Amphetamine Screen Urine NEGATIVE (NEGATIVE); Barbiturates Screen Urine NEGATIVE (NEGATIVE); Benzodiazepines Screen Urine NEGATIVE (NEGATIVE); Buprenorphine Screen Urine NEGATIVE (NEGATIVE); Cannabinoid Screen Urine NEGATIVE (NEGATIVE); Cocaine Screen Urine NEGATIVE (NEGATIVE); Methadone Screen Urine NEGATIVE (NEGATIVE); Methamphetamines Screen Urine NEGATIVE (NEGATIVE); Opiate Screen Urine NEGATIVE (NEGATIVE); Oxycodone Screen Urine NEGATIVE (NEGATIVE); Phencyclidine Screen Urine NEGATIVE (NEGATIVE); Tricyclic Antidepressant Urine NEGATIVE (NEGATIVE)
[2025-03-03 05:07] LABS: HIV Ab/p24 Ag Screen Non Reactive (Non Reactive)
[2025-03-03 06:07] LABS: HBsAg Screen Negative (Negative); HCV Ab Non Reactive (Non Reactive)
[2025-03-03 08:09] LABS: Rubella Antibodies, IgG <0.90 index (Immune >0.99)
[2025-03-03 12:09] LABS: Rapid Plasma Reagin, Quant Non Reactive titer (NonRea<1:1)
== END 2025-03-02 08:13 | disposition home or self-care (01) ==
LOC: LAB 08:15
PROVIDERS: Visit Provider Obstetrics & Gynecology
DX: Z34.01 Encounter for supervision of normal first pregnancy, first trimester (principal); Z36.0 Encounter for antenatal screening for chromosomal anomalies; N92.6 Irregular menstruation, unspecified
CPT/HCPCS: 36415; 80307; 83036; 85025; 86592; 86762; 86803; 86850; 86900; 86901; 87086; 87340; 87389

== ENCOUNTER 2025-03-03 11:15 | Outpatient (OUT) | payer OTHER, SELFPAY ==
--- OUTSIDE RECORDS SUMMARY | 2025-03-03 09:50 | XMS_ITS | Encounter Summary ---
Author Organization [facility] Address [address] [place] [address] Care Team Providers Care Processes Chemical Design Engineer Name Role Phone Unavailable Primary Care Provider Unavailabl e Reason for Visit * Reason Comments Routine Visit Encounter Details Date Type Department Care Team (Late st Contact Info) Description 03/03/2025 9:50 AM EDT Routine [facility] OB [address] [place] [phone] Bridger Sims [facility] [address] [place], [place] [id number] 15 weeks gestation of ([facility]); Second trimester fetus ([facility]); Screening, , for anatomic survey ([facility]) Social History Tobacco Use Types Packs/Day Years Used Date Smoking Tobacco: Never Assessed Estimated Date of Delivery Comme nts Yes 08/19/2025 Based on Ultraso und Sex and Gender Information Value Date Recorded Sex Assigned at Not on file Legal Sex Female 12:01 PM EST Gender Identity Not on file Sexual Orientation Not on file documented as of this encounter Last Filed Vital Signs Vital Sign Reading Time Taken Comments Blood Pressure 112/64 03/03/2025 10:24 AM EDT Pulse - - Temperature - - Respiratory Rate - - Oxygen Saturation - - Inhaled Oxygen Concentration - - Weight 80.8 kg (178 lb 1.9 oz) 03/03/2025 10:24 AM EDT Height - - Body Mass Index 32.58 02/13/2025 10:16 AM EDT documented in this encounter Plan of Treatment Upcoming Encounters Date Type Department Care Team (Late st Contact Info) Description 04/06/2025 9:30 AM EDT Ancillary Procedure [facility] [address] [place] [phone] 04/06/2025 10:30 AM EDT Routine [facility] [address] [place] [address] Sarita Mcnair PA [address] [facility] [address] [place], [place] [phone] Scheduled Orders Name Type Priority Associated Diagnoses Orde r Schedule Alpha fetoprotein, maternal Lab Routine 15 weeks gestation of ([facility]) Second trimester fetus ([facility]) Expected: 03/03/2025 (Approximate), Expires: 06/03/2025 US OB 14+ weeks anatomy scan Imaging Routine Screening, , for anatomic survey ([facility]) Expected: 03/03/2025, Expires: 06/03/2025 documented as of this encounter Procedures Procedure Name Priority Date/Time Associated Diagnosis Comments POCT URINALYSIS DIPSTICK Routine 03/03/2025 10:29 AM EDT 15 weeks gestation of ([facility]) Second trimester fetus ([facility]) documented in this encounter Results * (ABNORMAL) POCT urinalysis dipstick manually resulted (03/03/2025 10:29 AM EDT) Color, UA Yellow Clarity, UA Clear Glucose, UA Negative Negative - 2000(110) ++++ mg/dL Bilirubin, UA Negative Negative - 4(70) +++ mg/dL Ketones, UA Negative Negative - 160(16) ++++ mg/dL Spec Grav, UA 1.020 1 - 1.03 Blood, UA Negative Negative - 50 Haseeb/mcL pH, UA 7.5 5 - 9 Protein, UA Trace Negative - 2000(20) ++++ mg/dL Urobilinogen, UA 0.2 0.2 - 12 mg/dL Leukocytes, UA Negative Negative - 500+++ Ronaldo/mcL Nitrite, UA Negative Negative - Positive Urine 03/03/2025 10:2 9 AM EDT Bridger Sims DO POINT OF CARE TEST ENTER/EDIT OR DERABLES Final Result documented in this encounter Visit Diagnoses Diagnosis 15 weeks gestation of ([facility]) Second trimester fetus ([facility]) Screening, , for anatomic survey ([facility]) Encounter for anatomic survey documented in this encounter
--- OUTSIDE RECORDS SUMMARY | 2025-03-03 11:19 | XMS_ITS | Encounter Summary ---
Author Organization [facility] Address [address] [place] [address] Care Team Providers Care Camp Recreation Specialist Name Role Phone Unavailable Primary Care Provider Unavailabl e Encounter Details Date Type Department Care Team (Late st Contact Info) Description 05/28/2024 Abstract [facility] [address] [place] [phone] Bridger Sims DO [address] [place] [address] [address] [place], [place] [phone] Social History Tobacco Use Types Packs/Day Years Used Date Smoking Tobacco: Never Assessed Comments Yes Sex and Gender Information Value Date Recorded Sex Assigned at Not on file Legal Sex Female 12:01 PM EST Gender Identity Not on file Sexual Orientation Not on file documented as of this encounter Plan of Treatment Upcoming Encounters Date Type Department Care Team (Late st Contact Info) Description 04/06/2025 9:30 AM EDT Ancillary Procedure [facility] [address] [place] [phone] 04/06/2025 10:30 AM EDT Routine [facility] OB [address] [place] [address] [place] [phone] Sarita Mcnair PA [address] [facility] [address] [place], [place] [phone] documented as of this encounter Visit Diagnoses Not on filedocumented in this encounter
--- OUTSIDE RECORDS SUMMARY | 2025-03-03 11:19 | XMS_ITS | Encounter Summary ---
Author Organization [facility] Address [address] [place] [address] Care Team Providers Care Ordnance Truck Installation Mechanic Name Role Phone Unavailable Primary Care Provider Unavailabl e Encounter Details Date Type Department Care Team (Late st Contact Info) Description 05/27/[address] [address] [place] [phone] Bridger Sims DO [address] [place] [address] [address] [place], [place] [phone] Social History Tobacco Use Types Packs/Day Years [...] 04/06/2025 9:30 AM EDT Ancillary Procedure [facility] [address] [place] [phone] 04/06/2025 10:30 AM EDT Routine [facility] OB [address] [place] [address] [place] [phone] Sarita Mcnair PA [address] [facility] [address] [place], [place] [phone] documented as of this encounter Visit Diagnoses Not on filedocumented in this encounter
--- OUTSIDE RECORDS SUMMARY | 2025-03-03 11:19 | XMS_ITS | Encounter Summary ---
Author Organization [facility] Address [address] [place] [address] Care Team Providers Care Cotton Stomper Name Role Phone Unavailable Primary Care Provider Unavailabl e Encounter Details Date Type Department Care Team (Late st Contact Info) Description 01/22/2024 Clinisync Result Encounter [facility] External Department Unsolicited Bridger Sims DO [address] [facility] [address] [place], [place] [phone] Social History Tobacco Use Types Packs/Day Years [...] AM EDT Ancillary Procedure [facility] [address] [place] [address] [place] [phone] 04/06/2025 10:30 AM EDT Routine [facility] [address] [facility] [place] [phone] Sarita Mcnair PA [address] [facility] [place] [address] documented as of this encounter Procedures Procedure Name Priority Date/Time Associated Diagnosis Comments US OB CERVICAL LENGTH 01/22/2024 10:58 AM EDT documented in this encounter Results * US OB CERVICAL LENGTH (01/22/2024 10:58 AM EDT) Anatomical Region Laterality Modality Other 01/22/2024 10:5 8 AM EDT Narrative 01/22/2024 11:00 [place] [address] Ultrasound Report Signed Patient: YAKELIN MELGOZA MR#: [id number] : 1995 Acct:[id number] Age/Sex: 28 / F ADM Date: 01/22/24 Loc: US Attending Dr: Bridger Sims D.O. Ordering Physician: Bridger Sims D.O. Date of Service: 01/22/24 Procedure(s): US OB cervical length Accession Number(s): [id number] cc: Bridger Sims D.O.; Physician,Non-Staff M.[facility] [place] [id number] Patient Name: YAKELIN MELGOZA MRN: [facility]:[id number] date: 1995 Sex: F Assigned Patient Location: US Current Patient Location: US Accession/Order Number: [id number] Exam Date: 01/22/2024 09:50 Report Date: 01/22/2024 10:58 At the request of: BRIDGER SIMS Procedure: US OB cervical length EXAMINATION: US OB anatomy, US OB cervical length HISTORY: Screening For Anatomic Survey Z36.89 COMPARISON: Ultrasound OB transvaginal 12/13/2023 TECHNIQUE: Transabdominal sonographic examination was performed for obstetrical and evaluation. FINDINGS: Number: 1 Heart Rate: 142.1 bpm H.B. /min Amniotic Fluid Volume: Surgically normal Placental Location: ANTERIOR, grade 1, with lower margin 3.7 cm from os. 2.7 x 2.2 x 1.0 cm venous chandra, likely incidental. Cervix Length: 5.8 cm, closed. ANATOMY: Normal Structures -cerebellum, choroid plexus, cisterna magna, lateral cerebral ventricles, orbits, midline falx, hard palate, four-chamber heart, RVOT, LVOT, stomach, kidneys, bladder, umbilical cord insertion into abdomen, three-vessel cord, cervical spine, thoracic spine, lumbar spine, sacral spine, right upper extremity, left upper extremity, right lower extremity, left lower extremity. SUBOPTIMALLY SEEN: None ABNORMALITIES: None BIOMETRY: BPD: 3.7 cm 17 weeks 3 days ; 3% HC: 14.5 cm 17 weeks 5 days; < 3% AC: 12.5 cm 18 weeks 1 days; 19% FL: 2.6 cm 17 weeks 6 days ; 11% EFW:218.1 grams; 6% FL/AC: 20.8 FL/BPD: 69.7 HC/AC: 1.2 GESTATIONAL AGE: Age by EDC: 19 weeks 0 days VANGIE by EDC: 06/17/2024 Age by current US: 17 weeks 6 days VANGIE by current US: 06/25/2024 US/US OB cervical length IMPRESSION: 1. Single live intrauterine with growth detailed above. 2. Estimated weight is 6th percentile. Head circumference is < 3rd percentile. Electronically authenticated by: LEISA AJ Date: 01/22/2024 10:58 Dictated By: Leisa Aj M.D. Signed By: 01/22/24 1100 DD/ 1058 TD/TT: Medical Detail Representative: Procedure Note Radiology, Radiologist, MD - 01/22/2024 [place] [address] Ultrasound Report Signed Patient: YAKELIN MELGOZA PMR#: [id number] : 1995Acct:[id number] Age/Sex: 28 / FADM Date: 01/22/24 Loc: US Attending Dr: Bridger Sims D.O. Ordering Physician: Bridger Sims D.O. Date of Service: 01/22/24 Procedure(s): US OB cervical length Accession Number(s): [id number] cc: Bridger Sims D.O.; Physician,Non-Staff [place] [facility] [place] [id number] Patient Name: YAKELIN MELGOZA MRN: [facility]:[id number] date: 1995 Sex: F Assigned Patient Location: US Current Patient Location: US Accession/Order Number: [id number] Exam Date: 01/22/2024 09:50 Report Date: 01/22/2024 10:58 At the request of: BRIDGER SIMS Procedure: US OB cervical length EXAMINATION: US OB anatomy, US OB cervical length HISTORY: Screening For Anatomic Survey Z36.89 COMPARISON: Ultrasound OB transvaginal 12/13/2023 TECHNIQUE: Transabdominal sonographic examination was performed for obstetrical and evaluation. FINDINGS: Number: 1 Heart Rate: 142.1 bpm H.B. /min Amniotic Fluid Volume: Surgically normal Placental Location: ANTERIOR, grade 1, with lower margin 3.7 cm from os.2.7 x 2.2 x 1.0 cm venous chandra, likely incidental. Cervix Length: 5.8 cm, closed. ANATOMY: Normal Structures -cerebellum, choroid plexus, cisterna magna, lateral cerebral ventricles, orbits, midline falx, hard palate, four-chamberheart, RVOT, LVOT, stomach, kidneys, bladder, umbilical cord insertion intoabdomen, three-vessel cord, cervical spine, thoracic spine, lumbar spine, sacralspine, right upper extremity, left upper extremity, right lower extremity, leftlower extremity. SUBOPTIMALLY SEEN: None ABNORMALITIES: None BIOMETRY: BPD: 3.7 cm 17 weeks 3 days ; 3% HC: 14.5 cm 17 weeks 5 days; < 3% AC: 12.5 cm 18 weeks 1 days; 19% FL: 2.6 cm 17 weeks 6 days ; 11% EFW:218.1 grams; 6% FL/AC: 20.8 FL/BPD: 69.7 HC/AC: 1.2 GESTATIONAL AGE: Age by EDC: 19 weeks 0 days VANGIE by EDC: 06/17/2024 Age by current US: 17 weeks 6 days VANGIE by current US: 06/25/2024 US/US OB cervical length IMPRESSION: 1. Single live intrauterine with growth detailed above. 2. Estimated weight is 6th percentile. Head circumference is < 3rd percentile. Electronically authenticated by: LEISA AJ Date: 01/22/2024 10:58 Dictated By: Leisa Aj M.D. Signed By:01/22/24 1100 DD/ 1058 TD/TT: Medical Detail Representative: us Bridger Bethany DO [facility] Final Result documented in this encounter Visit Diagnoses Not on filedocumented in this encounter
--- OUTSIDE RECORDS SUMMARY | 2025-03-03 11:19 | XMS_ITS | Encounter Summary ---
Author Organization [facility] Address [address] [place] [address] Care Team Providers Care Juvenile Court Liaison Name Role Phone Unavailable Primary Care Provider Unavailabl e Encounter Details Date Type Department Care Team (Late st Contact Info) Description 03/02/2025 Clinisync Result Encounter [facility] External Department Unsolicited Bridger Sims [address] [facility] [address] [place], [place] [phone] Social History Tobacco Use Types Packs/Day Years [...] AM EDT Ancillary Procedure [facility] [address] [place] [address] [place] [phone] 04/06/2025 10:30 AM EDT Routine [facility] [address] [place] [address] [place] [phone] Sarita Mcnair PA [address] [facility] [address] [place], [place] [phone] documented as of this encounter Procedures Procedure Name Priority Date/Time Associated Diagnosis Comments BOX TEST Routine 03/02/2025 8:35 AM EDT HIV AB/P24 AG WITH REFLEX Routine 03/02/2025 8:35 AM EDT TB[facility] DRUG SCREEN RAPID (URINE) Routine 03/02/2025 8:35 AM EDT HCV ANTIBODY RFX TO QUANT PCR Routine 03/02/2025 8:35 AM EDT MLR HEMOGLOBIN A1C Routine 03/02/2025 8: 35 AM EDT ALL TYPE AND SCREEN Routine 03/02/2025 8 :35 AM EDT ALL RUBELLA IGG AB Routine 03/02/2025 8: 35 AM EDT ALL CBC WITH AUTO DIFF Routine 03/02/2025 8:35 AM EDT documented in this encounter Results * HCV ANTIBODY RFX TO QUANT PCR (03/02/2025 8:35 AM EDT) HCV AB Non Reactive Non Reactive TB INTERPRETATION: Comment . TB Comment: Not infected with HCV unless early or acute infection is suspected (which may be delayed in an immunocompromised individual), or other evidence exists to indicate HCV infection. Performed at: [facility] [id number] Drywall Stripper Helper: Romulo Yoon PhD, Phone: [phone] 03/02/2025 8:35 AM EDT 03/02/2025 8:43 AM EDT Narrative KASIA - 03/03/2025 8:09 AM EDT us Bridger Bethany DO LAB BLOOD ORDERABLES Final Resul t * (ABNORMAL) ALL RUBELLA IGG AB (03/02/2025 8:35 AM EDT) RUBELLA ANTIBODIES, IGG <0.90(A) Immune >0.99 index TB Comment: Non-immune <0.90 Equivocal 0.90 - 0.99 Immune >0.99 Performed at: [facility] [address] [id number] Drywall Stripper Helper: Romulo Yoon PhD, Phone: [phone] 03/02/2025 8:35 AM EDT 03/02/2025 8:43 AM EDT Narrative CLINISYNC - 03/03/2025 8:09 AM EDT us Bridger Bethany DO CLINISYNC Final Result Performing Organization Address City/[facility]/ZIP Co de Phone Number CLINISYNC TB * HIV AB/P24 AG WITH REFLEX (03/02/2025 8:35 AM EDT) [facility] HIV AB/P24 AG SCREEN Non Reactive Non Reactive TBH Comment: HIV-1/HIV-2 antibodies and HIV-1 p24 antigen were NOT detected. There is no laboratory evidence of HIV infection. HIV Negative Performed at: [address] [id number] Drywall Stripper Helper: Romulo Yoon PhD, Phone: [phone] 03/02/2025 8:35 AM EDT 03/02/2025 8:43 AM EDT Narrative CLINISYNC - 03/03/2025 5:07 AM EDT us Bridger Bethany DO LAB BLOOD ORDERABLES Final Resul t Performing Organization Address [facility] Co de Phone Number CLINISYNC TB * ALL TYPE AND SCREEN (03/02/2025 8:35 AM EDT) Pathologist [facility] BLOOD TYPE A Positive TBH ANTIBODY SCREEN NEGATIVE TBH 03/02/2025 8:35 AM EDT 03/02/2025 8:43 AM EDT Narrative CLINISYNC - 03/02/2025 1:49 PM EDT [facility] , us Bridger Bethany DO CLINISYNC Final Result Performing Organization Address City/[facility]/ZIP Co de Phone Number CLINISYNC TB * TBH DRUG SCREEN RAPID (URINE) (03/02/2025 8:35 AM EDT) CANNABINOID SCREEN URINE NEGATIVE NEGATIVE TBH PHENCYCLIDINE SCREEN URINE NEGATIVE NEGATIVE TBH COCAINE SCREEN URINE NEGATIVE NEGATIVE TBH METHAMPHETAMINES SCREEN URINE NEGATIVE NEGATIVE TBH OPIATE SCREEN URINE NEGATIVE NEGATIVE TBH AMPHETAMINE SCREEN URINE NEGATIVE NEGATIVE TBH BENZODIAZEPINES SCREEN URINE NEGATIVE NEGATIVE TBH TRICYCLIC ANTIDEPRESSANT URINE NEGATIVE NEGATIVE TBH METHADONE SCREEN URINE NEGATIVE NEGATIVE TBH BARBITURATES SCREEN URINE NEGATIVE NEGATIVE TBH OXYCODONE SCREEN URINE NEGATIVE NEGATIVE TBH BUPRENORPHINE SCREEN URINE NEGATIVE NEGATIVE TBH Comment: DRUG CLASS TEST SYSTEM CUT-OFF CONCENTRATIONS ARE FOLLOWS: AMP (Amphetamine): 500 ng/mL BAR (Barbiturates): 200 ng/mL BZO (Benzodiazepines): 150 ng/mL BUP (Buprenorphine): 10 ng/mL JAYLA (Cocaine): 150 ng/mL mAMP (Methamphetamine): 500 ng/mL MTD (Methadone): 200 ng/mL OPI (Opiates): 100 ng/mL OXY (Oxycodone): 100 ng/mL PCP (Phencyclidine): 25 ng/mL THC (Cannabinoids): 50 ng/mL TCA (Trycyclic Antidepressants): 300 ng/mL 03/02/2025 8:35 AM EDT 03/02/2025 8:43 AM EDT Narrative CLINISYNC - 03/02/2025 10:02 AM EDT Bridger Bethany DO CLINISYNC Final Result Performing Organization Address [facility] de Phone Number CLINISYFORMERLY [facility] * MLR HEMOGLOBIN A1C (03/02/2025 8:35 AM EDT) Pathologist [facility] GLYCOHEMOGLOBIN A1C 5.2 4.5 - 6.2 % [facility] Comment: ADA RECOMMENDED LIMIT 4.0 - 6.0 ADA THERAPEUTIC TARGET < 7.0 ACTION SUGGESTED > 7.0 ESTIMATED AVERAGE GLUCOSE 103 mg/dL [facility] 03/02/2025 8:35 AM EDT 03/02/2025 8:43 AM EDT Narrative CLINISYNC - 03/02/2025 9:17 AM EDT Bridger Bethany DO CLINISYNC Final Result Performing Organization Address City/State/[facility] Co de Phone Number KASIA [facility] * (ABNORMAL) ALL CBC WITH AUTO DIFF (03/02/2025 8:35 AM EDT) TBH WBC 7.6 4.0 - 11.0 10 3/uL TBH TBH RBC 4.06(L) 4.20 - 5.40 10 6/uL TBH TBH HGB 10.8(L) 12.0 - 16.0 g/dL TBH TBH HCT 32.5(L) 36.0 - 48.0 % TBH TBH MCV 80.0(L) 81.0 - 99.0 fL TBH TBH MCH 26.6(L) 26.7 - 34.0 pg TBH TBH MCHC 33.2 29.9 - 35.2 g/dL TBH TBH RDW 14.0 11.0 - 15.0 % TBH TBH PLT 190 150 - 450 10 3/uL TBH TBH MPV 10.7 9.5 - 13.5 fL TBH NEUTROPHILS PERCENT AUTO 76.0(H) 43.0 - 75.0 % TBH LYMPHOCYTES PERCENT AUTO 16.1(L) 20.5 - 60.0 % TBH MONOCYTES PERCENT AUTO 6.3 1.7 - 12.0 % TBH TBH EO % 0.9 0.9 - 7.0 % TBH BASOPHILS PERCENT AUTO 0.3 0.2 - 2.0 % TBH IMMATURE GRANULOCYTES PCT AUTO 0.4 0.0 - 0.5 % TBH NEUTROPHILS ABSOLUTE AUTO 5.8 1.4 - 6.5 10 3/uL TBH LYMPHOCYTES ABSOLUTE AUTO 1.2 1.2 - 3.8 10 3/uL TBH MONOCYTES ABSOLUTE AUTO 0.5 0.3 - 0.8 10 3/uL TBH TBH EO # 0.1 0.0 - 0.7 10 3/uL TBH BASOPHILS ABSOLUTE AUTO 0.0 0.0 - 0.1 10 3/uL TBH IMMATURE GRANULOCYTES ABS AUTO 0.03 0.00 - 0.03 10 3/uL TBH 03/02/2025 8:35 AM EDT 03/02/2025 8:43 AM EDT Narrative CLINISYNC - 03/02/2025 9:06 AM EDT us Bridger Bethany DO CLINISYNC Final Result [facility] * BOX TEST (03/02/2025 8:35 AM EDT) BOX TEST SENT OUT [facility] BOX1 [facility] BOX2 03/02/25 [facility] 03/02/2025 8:35 AM EDT 03/02/2025 8:43 AM EDT Narrative CLINISYNC - 03/02/2025 8:54 AM EDT UNITY BOX us Bridger Sims DO LAB BLOOD ORDERABLES Final Resul t Performing Organization Address [facility] Co de Phone Number KASIA [facility] documented in this encounter Visit Diagnoses Not on filedocumented in this encounter
--- OUTSIDE RECORDS SUMMARY | 2025-03-03 11:19 | XMS_ITS | Encounter Summary ---
Author Organization [facility] Address [address] [place] [address] Care Team Providers Care Heavy Cleaner Name Role Phone Unavailable Primary Care Provider Unavailabl e Encounter Details Date Type Department Care Team (Late st Contact Info) Description 04/02/2024 Abstract [facility] OB [address] [place] [address] [place] [phone] Jacqueline Joyce LPN [address] [place] [address] Social History Tobacco Use Types Packs/Day Years [...] 04/06/2025 9:30 AM EDT Ancillary Procedure [facility] OB [address] [place] [address] [place] [phone] 04/06/2025 10:30 AM EDT Routine [facility] OB [address] [place] [address] [place] [phone] Sarita Mcnair PA [address] [facility] [address] [place], [place] [phone] documented as of this encounter Visit Diagnoses Not on filedocumented in this encounter
--- OUTSIDE RECORDS SUMMARY | 2025-03-03 11:19 | XMS_ITS | Encounter Summary ---
Author Organization [facility] Address [address] [place] [address] Care Team Providers Care Architectural Renderer Name Role Phone Unavailable Primary Care Provider Unavailabl e Encounter Details Date Type Department Care Team (Late st Contact Info) Description 05/02/2024 Abstract [facility] OB [address] [place] [address] [place] [phone] Bridger Sims DO [address] [place] [address] [address] [place], [place] [phone] Social History Tobacco Use Types Packs/Day Years [...] 04/06/2025 9:30 AM EDT Ancillary Procedure NOMS [address] [place] [phone] 04/06/2025 10:30 AM EDT Routine [facility] OB [address] [place] [address] [place] [phone] Sarita Mcnair PA [address] [facility] [address] [place], [place] [phone] documented as of this encounter Visit Diagnoses Not on filedocumented in this encounter
--- OUTSIDE RECORDS SUMMARY | 2025-03-03 11:19 | XMS_ITS | Encounter Summary ---
Author Organization [facility] Address [address] [place] [address] Care Team Providers Care Oenologist Name Role Phone Unavailable Primary Care Provider Unavailabl e Encounter Details Date Type Department Care Team (Late st Contact Info) Description 03/03/2025 Bamboo flowsheet [facility] OB [address] [place] [address] [place] [address] Bridger Sims DO [address] [place] [address] [place] [address] Social History Tobacco Use Types Packs/Day [...] 04/06/2025 9:30 AM EDT Ancillary Procedure [facility] OB [address] [place], [place] [address] [address] 04/06/2025 10:30 AM EDT Routine [facility] OB [address] [place] [address] [place] [address] Sarita Mcanir PA [address] [place], [place] [phone] documented as of this encounter Visit Diagnoses Not on filedocumented in this encounter
--- OUTSIDE RECORDS SUMMARY | 2025-03-03 11:19 | XMS_ITS | Encounter Summary ---
Author Organization [facility] Address [address] [place] [address] Care Team Providers Care Diver Helper Name Role Phone Unavailable Primary Care Provider Unavailabl e Encounter Details Date Type Department Care Team (Late st Contact Info) Description 01/22/2024 Clinisync Result Encounter [facility]S External Department Unsolicited Bridger Sims DO [address] [facility] [address] [place], [place] [phone] Social History Tobacco Use Types Packs/Day Years [...] AM EDT Ancillary Procedure [facility] OB [address] [place] [address] [place] [phone] 04/06/2025 10:30 AM EDT Routine [facility] OB [address] [place] [address] [place] [phone] Sarita Mcnair PA [address] [facility] [place] [address] documented as of this encounter Procedures Procedure Name Priority Date/Time Associated Diagnosis Comments US OB ANATOMY 01/22/2024 10:58 AM EDT documented in this encounter Results * US OB ANATOMY (01/22/2024 10:58 AM EDT) Anatomical Region Laterality Modality Other 01/22/2024 10:5 8 AM EDT Narrative 01/22/2024 11:00 [place] [address] Ultrasound Report Signed Patient: YAKELIN MELGOZA MR#: [id number] : 1995 Acct:[id number] Age/Sex: 28 / F ADM Date: 01/22/24 Loc: US Attending Dr: Bridger Sims D.O. Ordering Physician: Bridger Sims D.O. Date of Service: 01/22/24 Procedure(s): US OB anatomy Accession Number(s): [id number] cc: Bridger Sims D.O.; Physician,Non-Staff [place] [id number] Patient Name: YAKELIN MELGOZA MRN: [id number] date: 1995 Sex: F Assigned Patient Location: US Current Patient Location: US Accession/Order Number: [id number] Exam Date: 01/22/2024 09:50 Report Date: 01/22/2024 10:58 At the request of: BRIDGER SIMS Procedure: US OB anatomy EXAMINATION: US OB anatomy, US OB cervical [...] VANGIE by current US: 06/25/2024 US/US OB anatomy IMPRESSION: 1. Single live intrauterine with growth detailed above. 2. Estimated weight is 6th percentile. Head circumference is < 3rd percentile. Electronically authenticated by: LEISA AJ Date: 01/22/2024 10:58 Dictated By: Leisa Aj M.D. Signed By: 01/22/24 1100 DD/ 1058 TD/TT: Electric Well Logging Operator: Procedure Note Radiology, Radiologist, MD - 01/22/2024 [place] [address] Ultrasound Report Signed Patient: YAKELIN MELGOZA PMR#: [id number] : 1995Acct:[id number] Age/Sex: 28 / FADM Date: 01/22/24 Loc: US Attending Dr: Bridger Sims D.O. Ordering Physician: Bridger Sims D.O. Date of Service: 01/22/24 Procedure(s): US OB anatomy Accession Number(s): [id number] cc: Bridger Sims D.O.; Physician,Non-Staff [place] [phone] Patient Name: YAKELIN MELGOZA MRN: [id number] date: 1995 Sex: F Assigned Patient Location: US Current Patient Location: US Accession/Order Number: [id number] Exam Date: 01/22/2024 09:50 Report Date: 01/22/2024 10:58 At the request of: BRIDGER SIMS Procedure: US OB anatomy EXAMINATION: US OB anatomy, US OB cervical [...] VANGIE by current US: 06/25/2024 US/US OB anatomy IMPRESSION: 1. Single live intrauterine with growth detailed above. 2. Estimated weight is 6th percentile. Head circumference is < 3rd percentile. Electronically authenticated by: LEISA AJ Date: 01/22/2024 10:58 Dictated By: Leisa Aj M.D. Signed By:01/22/24 1100 DD/ 1058 TD/TT: Electric Well Logging Operator: us Bridger Sims DO [facility] Final Result documented in this encounter Visit Diagnoses Not on filedocumented in this encounter
--- OUTSIDE RECORDS SUMMARY | 2025-03-03 11:19 | XMS_ITS | Encounter Summary ---
Author Organization [facility] Address [address] [place] [address] Care Team Providers Care Plastic Tile Setter Name Role Phone Unavailable Primary Care Provider Unavailabl e Encounter Details Date Type Department Care Team (Late st Contact Info) Description 01/09/2024 Abstract [facility] OB [address] [place] [address] [place] [address] Jacqueline Joyce LPN [address] [place] [address] Social History Tobacco Use Types Packs/Day [...] 04/06/2025 9:30 AM EDT Ancillary Procedure [facility] OB [address] [place] [address] [place] [phone] 04/06/2025 10:30 AM EDT Routine [facility] OB [address] [place] [address] [place] [phone] Sarita Mcnair PA [address] [facility] [address] [place], [place] [phone] documented as of this encounter Visit Diagnoses Not on filedocumented in this encounter
--- OUTSIDE RECORDS SUMMARY | 2025-03-03 11:19 | XMS_ITS | Encounter Summary ---
Author Organization [facility] Address [address] [place] [address] Care Team Providers Care Valet Name Role Phone Unavailable Primary Care Provider Unavailabl e Encounter Details Date Type Department Care Team (Late st Contact Info) Description 05/02/2024 Abstract [facility] OB [address] [place] [address] [place] [phone] Bridger Sims DO [address] [place] [address] Dr [place], [place] [phone] Social History Tobacco Use Types Packs/Day Years [...] 04/06/2025 9:30 AM EDT Ancillary Procedure N[facility] [address] [place] [phone] 04/06/2025 10:30 AM EDT Routine [facility] OB [address] [place] [address] [place] [phone] Sarita Mcnair PA [address] [facility] [address] [place], [place] [phone] documented as of this encounter Visit Diagnoses Not on filedocumented in this encounter
--- OUTSIDE RECORDS SUMMARY | 2025-03-03 11:20 | XMS_ITS | Clinical Summary ---
Author Organization [facility] Address [address] [place] [address] Care Team Providers Care Call Center Operations Manager Name Role Phone Unavailable Primary Care Provider Unavailabl e Allergies Active Allergy Reactions Criticality Noted Date Comments Cortisone Rash Low 04/15/2024 Latex Hives Medium 09/23/2022 Medications Vit-Fe Fumarate-FA ( VITAMIN PO)Indications:Misse d menses,, unspecified gestational age ([facility]) Take by mouth Active iron polysaccharides (ProFe) 391.3 (180 Fe) MG capsuleIndications:A nemia affecting in second trimester ([facility]) Take 1 capsule (391.3 mg) by mouth Daily 30 capsule 6 4 03/27/20 25 Active Active Problems Problem Noted Date Diagnosed Date 15 weeks gestation of ([facility]) 2024 Second trimester fetus ([facility]) 03/03/2025 Missed menses 12/11/2023 Estimated Date of Delivery Comme nts Yes 08/19/2025 Based on Ultraso und Encounters Date Type Department Care Team Description 03/03/2025 9:50 AM EDT Routine [facility] OB [address] [place] [phone] Monico Sims, 15 weeks gestation of ([facility]); Second trimester fetus ([facility]); Screening, , for anatomic survey ([facility]) 03/03/2025 Bamboo flowsheet [facility] [address] [address] Monico Sims DO 03/02/2025 Clinisync Result Encounter [facility] External Department Unsolicited Monico Sims, DO 02/13/2025 10:00 AM EDT Initial [facility] OB [facility] [place] [address] GA: 13w2d 02/13/2025 9:30 AM EDT Ancillary Procedure [facility] OB [address] [place] [address] Missed menses 01/19/2025 Telephone [facility] OB [facility] [place] [address] Monico Sims, DO 01/14/2025 Clinisync Result Encounter [facility] External Department Unsolicited Monico Sims, DO 01/05/2025 Telephone [facility] OB [facility] [place] [address] Ratna Schofield LPN from Last 3 Months Family History Medical History Relation Name Comments Seizures Father Relation Name Status Comments Father Social History Tobacco Use Types Packs/Day Years Used Date Smoking Tobacco: Never Assessed Estimated Date of Delivery Comme nts Yes 08/19/2025 Based on Ultraso und Sex and Gender Information Value Date Recorded Sex Assigned at Not on file Legal Sex Female 12:01 PM EST Gender Identity Not on file Sexual Orientation Not on file Last Filed Vital Signs Vital Sign Reading Time Taken Comments Blood Pressure 112/64 03/03/2025 10:24 AM EDT Pulse - - Temperature - - Respiratory Rate - - Oxygen Saturation - - Inhaled Oxygen Concentration - - Weight 80.8 kg (178 lb 1.9 oz) 03/03/2025 10:24 AM EDT Height 157.5 cm (5' 2 ) 02/13/2025 10:16 AM EDT Body Mass Index 32.58 02/13/2025 10:16 AM EDT Plan of Treatment Upcoming Encounters Date Type Department Care Team (Late st Contact Info) Description 04/06/2025 9:30 AM EDT Ancillary Procedure [facility] OB [address] [place] [phone] 04/06/2025 10:30 AM EDT Routine [facility] [place] [address] Sarita Mcnair PA [address] [place] [address] [place] [address] Procedures Procedure Name Priority Date/Time Associated Diagnosis Comments POCT URINALYSIS DIPSTICK Routine 03/03/2025 10:29 AM EDT 15 weeks gestation of ([facility]) Second trimester fetus ([facility]) HCV ANTIBODY RFX TO QUANT PCR Routine 03/02/2025 8:35 AM EDT ALL RUBELLA IGG AB Routine 03/02/2025 8: 35 AM EDT HIV AB/P24 AG WITH REFLEX Routine 03/02/2025 8:35 AM EDT ALL TYPE AND SCREEN Routine 03/02/2025 8 :35 AM EDT TB[facility] DRUG SCREEN RAPID (URINE) Routine 03/02/2025 8:35 AM EDT MLR HEMOGLOBIN A1C Routine 03/02/2025 8: 35 AM EDT ALL CBC WITH AUTO DIFF Routine 03/02/2025 8:35 AM EDT BOX TEST Routine 03/02/2025 8:35 AM EDT POCT URINALYSIS DIPSTICK Routine 02/13/2025 10:16 AM EDT Missed menses POCT , URINE Routine 02/13/2025 10:16 AM EDT Missed menses US OB TRANSVAGINAL Routine 02/13/2025 9: 51 AM EDT Missed menses ALL HCG, QUANTITATIVE Routine 01/14/2025 8:57 AM EDT from Last 3 Months Results * (ABNORMAL) POCT urinalysis dipstick manually resulted (03/03/2025 10:29 AM EDT) Only the most recent of2 resultswithin the time period is included. Pathologist [facility] Color, UA Yellow Clarity, UA Clear Glucose, [...] Positive Urine 03/03/2025 10:2 9 AM EDT Monico Bethany DO POINT OF CARE TEST ENTER/EDIT OR DERABLES Final Result * BOX TEST (03/02/2025 8:35 AM EDT) [facility] BOX TEST SENT OUT [facility] B[facility] 03/02/25 [facility] 03/02/2025 8:35 AM EDT 03/02/2025 8:43 AM EDT Narrative [facility] - 03/02/2025 8:54 AM EDT [facility] Monico Bethany DO LAB BLOOD ORDERABLES Final Resul t [facility] * HIV AB/P24 AG WITH REFLEX (03/02/2025 8:35 AM EDT) [facility] HIV AB/P24 AG SCREEN Non Reactive Non Reactive [facility] Comment: HIV-1/HIV-2 antibodies and HIV-1 p24 antigen were NOT detected. There is no laboratory evidence of HIV infection. HIV Negative Performed at: [address] [id number] Pulling Machine Operator: Romulo Yoon PhD, Phone: [phone] 03/02/2025 8:35 AM EDT 03/02/2025 8:43 AM EDT Narrative [facility] - 03/03/2025 5:07 AM EDT us Monico Bethany DO LAB BLOOD ORDERABLES Final Resul t Performing Organization Address City/[facility]/ZIP Co de Phone Number [facility] * [facility] DRUG SCREEN RAPID (URINE) (03/02/2025 [...] Narrative [facility] - 03/02/2025 10:02 AM EDT us Monico Bethany DO [facility] Final Result [facility] * HCV ANTIBODY RFX TO QUANT PCR (03/02/2025 8:35 AM EDT) HCV AB Non Reactive Non Reactive TB INTERPRETATION: Comment . TB Comment: Not infected with HCV unless early or acute infection is suspected (which may be delayed in an immunocompromised individual), or other evidence exists to indicate HCV infection. Performed at: [address] [id number] Pulling Machine Operator: Romulo Yoon PhD, Phone: [phone] 03/02/2025 8:35 AM EDT 03/02/2025 8:43 AM EDT Narrative [facility] - 03/03/2025 8:09 AM EDT us Monico Bethany DO LAB BLOOD ORDERABLES Final Resul t Performing Organization Address City/[facility] Co de Phone Number [facility] * MLR HEMOGLOBIN A1C (03/02/2025 8:35 AM EDT) Pathologist [facility] GLYCOHEMOGLOBIN A1C 5.2 4.5 - 6.2 % [facility] Comment: ADA RECOMMENDED LIMIT 4.0 - 6.0 ADA THERAPEUTIC TARGET < 7.0 ACTION SUGGESTED > 7.0 ESTIMATED AVERAGE GLUCOSE 103 mg/dL TB 03/02/2025 8:35 AM EDT 03/02/2025 8:43 AM EDT Narrative [facility] - 03/02/2025 9:17 AM EDT us Monico Bethany DO [facility] Final Result Performing Organization Address City/[facility]/ZIP Co de Phone Number [facility] * ALL TYPE AND SCREEN (03/02/2025 8:35 AM EDT) Pathologist [facility] BLOOD TYPE A Positive [facility] ANTIBODY SCREEN NEGATIVE TB 03/02/2025 8:35 AM EDT 03/02/2025 8:43 AM EDT Narrative [facility] - 03/02/2025 1:49 PM EDT [facility] , us Monico Bethany DO CL[facility] Final Result Performing Organization Address City/[facility]/ZIP Co de Phone Number [facility] * (ABNORMAL) ALL RUBELLA IGG AB (03/02/2025 8:35 AM EDT) [facility] RUBELLA ANTIBODIES, IGG <0.90(A) Immune >0.99 index [facility] Comment: Non-immune <0.90 Equivocal 0.90 - 0.99 Immune >0.99 Performed at: - Lab[address] [id number] Pulling Machine Operator: Romulo Yoon PhD, Phone: [phone] 03/02/2025 8:35 AM EDT 03/02/2025 8:43 AM EDT Narrative [facility] - 03/03/2025 8:09 AM EDT Monico Bethany DO [facility] Final Result [facility] * (ABNORMAL) ALL CBC WITH AUTO DIFF (03/02/2025 8:35 AM EDT) [facility] WBC 7.6 4.0 - 11.0 10 3/uL TBH TB RBC 4.06(L) 4.20 - 5.40 10 6/uL [facility]H TBH HGB 10.8(L) 12.0 - 16.0 g/dL TB TB HCT 32.5(L) 36.0 - 48.0 % [facility] TB MCV 80.0(L) 81.0 - 99.0 fL TB[facility] TB MCH 26.6(L) 26.7 - 34.0 pg TBH TB MCHC 33.2 29.9 - 35.2 g/dL TB TB RDW 14.0 11.0 - 15.0 % TBH TBH PLT 190 150 - 450 10 3/uL TB TB MPV 10.7 9.5 - 13.5 fL TBH [...] [facility] - 03/02/2025 9:06 AM EDT us Monico Bethany DO [facility] Final Result [facility] * (ABNORMAL) POCT , urine manually resulted (02/13/2025 10:16 AM EDT) Preg Test, Ur Positive Negative Urine 02/13/2025 10:1 6 AM EDT us Monico Bethany DO POINT OF CARE TEST ENTER/EDIT OR DERABLES Final Result * US OB transvaginal (02/13/2025 9:51 AM EDT) Anatomical Region Laterality Modality Body Ultrasound 02/16/2025 10:2 4 AM EDT Narrative 02/16/2025 10:24 AM EDT EXAM: US OB TRANSVAGINAL HISTORY: Dating. COMPARISON: [...] II, MD, PHD at 16-Feb-2025 10:22:48 AM [facility] Procedure Note Heena Bhardwaj MD - 02/16/2025 EXAM: US OB TRANSVAGINAL HISTORY: Dating. COMPARISON: None available. TECHNIQUE: Two-dimensional transvaginal grayscale ultrasound imaging ofthe pelvis was performed. FINDINGS: The uterus demonstrates a normal homogeneous echotexture. The cervixmeasures 4.4 cm in length and the cervical os is closed. The bilateral ovaries are not visualized. No fluid is present within the cul-de-sac. There is a single, live intrauterine gestation identified with a fetalheart rate of 153 beats per minute and a crown-rump length measurement of7.2 cm, correlating to a gestational age of 13 weeks 2 days (+/- 8 days).There is no subchorionic hemorrhage visualized. A yolk sac is notvisualized. IMPRESSION: 1. Single, live intrauterine gestation with today's ultrasoundmeasurements correlating to a gestational age of 13 weeks 2 days (+/- 8days). VANGIE by today's ultrasound is 08/19/2025. 2. Bilateral ovaries not visualized. Interpreted by: Electronically signed by HEENA BHARDWAJ II, MD, PHD [id number] 10:22:48 AM [facility] us Monico Sims DO IM OB US PROCEDURES Final Resul t * (ABNORMAL) ALL HCG, QUANTITATIVE (01/14/2025 8:57 AM EDT) [facility] HCG, QUANT 135,904.0( H) 0 - 7 mIU/mL [facility] Comment: Non-preg premeno <=5 Postmeno <=8 Male <=3 If HCG results do not concur with clinical observations, additional testing to confirm results is recommended. 01/14/2025 8:57 AM EDT 01/14/2025 8:58 AM EDT Narrative [facility] - 01/14/2025 10:21 AM EDT Original Ordering Provider: MONICO LEI us Monico Sims DO CLINISYJOSE Final Result [facility] from Last [address] [place], [place] [id number] [employer]
--- OUTSIDE RECORDS SUMMARY | 2025-03-03 11:20 | XMS_ITS | Encounter Summary ---
Author Organization [facility] Address [address] [place] [address] Care Team Providers Care Time Study Clerk Name Role Phone Unavailable Primary Care Provider Unavailabl e Encounter Details Date Type Department Care Team (Late st Contact Info) Description 06/17/2024 Abstract [address] [address] [place] [phone] Bridger Sims DO [address] [place] [address] Dr [place], [place] [phone] Social History Tobacco Use Types Packs/Day Years [...] 04/06/2025 9:30 AM EDT Ancillary Procedure [facility] [address] [place] [phone] 04/06/2025 10:30 AM EDT Routine [facility] OB [address] [place] [address] [place] [phone] Sarita Mcnair PA [address] [facility] [address] [place], [place] [phone] documented as of this encounter Visit Diagnoses Not on filedocumented in this encounter
--- OUTSIDE RECORDS SUMMARY | 2025-03-03 11:20 | XMS_ITS | Encounter Summary ---
Author Organization [facility] Address [address] [place] [address] Care Team Providers Care Licensed Prosthetist Name Role Phone Unavailable Primary Care Provider Unavailabl e Encounter Details Date Type Department Care Team (Late st Contact Info) Description 12/13/2023 Clinisync Result Encounter [facility] External Department Unsolicited Bridger Sims DO [address] [facility] [address] [place]ie [place], [place] [phone] Social History Tobacco Use Types Packs/Day Years [...] AM EDT Ancillary Procedure [facility] [address] [place] [address] [place] [phone] 04/06/2025 10:30 AM EDT Routine [facility] [address] [place] [address] [place] [phone] Sarita Mcnair PA [address] [facility] [place] [address] documented as of this encounter Procedures Procedure Name Priority Date/Time Associated Diagnosis Comments US OB TRANSVAGINAL 12/13/2023 1: 43 PM EDT documented in this encounter Results * US OB TRANSVAGINAL (12/13/2023 1:43 PM EDT) Anatomical Region Laterality Modality Other 12/13/2023 1:43 PM EDT Narrative 12/13/2023 1:45 [place] [address] Ultrasound Report Signed Patient: Yakelin Melgoza MR#: [id number] : 1995 Acct:[id number] Age/Sex: 28 / F ADM Date: 12/13/23 Loc: [facility] Attending Dr: rBidger Sims D.O. Ordering Physician: Bridger Sims D.O. Date of Service: 12/13/23 Procedure(s): US OB transvaginal Accession Number(s): [id number] cc: Bridger Mcleod D.O. [place] [address] Patient Name: YAKELIN MELGOZA MRN: [id number] date: 1995 Sex: F Assigned Patient Location: [facility] Current Patient Location: [facility] Accession/Order Number: [id number] Exam Date: 12/13/2023 12:33 Report Date: 12/13/2023 13:43 At the request of: BRIDGER SIMS Procedure: US OB transvaginal EXAMINATION: US OB transvaginal HISTORY: MISSED MENSES COMPARISON: No relevant comparison available. FINDINGS: Transvaginal images Hill intrauterine gestation Gestational sac: 5.25 cm, 11 weeks 1 day CRL: 5.72 cm, 12 weeks 2 days Yolk sac: 4.3 mm Heart rate: 150 beats minute Cervix: Closed, 4.4 cm The uterus is normal, anteverted, anteflexed The right ovary is normal measuring 2.0 x 1.1 x 1.5 cm Left ovary is normal measuring 3.2 x 2.3 x 2.4 cm Clinical age: Unknown Ultrasound age: 12 weeks 2 days Ultrasound VANGIE: 06/24/2024 US/US OB transvaginal IMPRESSION: Viable hill intrauterine gestation measuring 12 weeks 2 days Electronically authenticated by: FRANKIE HENDRICKSON Date: 12/13/2023 13:43 Dictated By: Frankie Hendrickson M.D. Signed By: 12/13/23 1345 DD/ 1343 TD/TT: Er Tech: Procedure Note Radiology, Radiologist, MD - 12/13/2023 [place] [address] Ultrasound Report Signed Patient: Yakelin Melgoza PMR#: [id number] : 1995Acct:[id number] Age/Sex: Date: 12/13/23 Loc: [facility] Attending Dr: Bridger Sims D.O. Ordering Physician: Bridger Sims D.O. Date of Service: 12/13/23 Procedure(s): US OB transvaginal Accession Number(s): [id number] cc: Bridger Mcleod D.O. [facility] [place] [address] Patient Name: YAKELIN MELGOZA MRN: [id number] date: 1995 Sex: F Assigned Patient Location: [facility] Current Patient Location: [facility] Accession/Order Number: [id number] Exam Date: 12/13/2023 12:33 Report Date: 12/13/2023 13:43 At the request of: BRIDGER SIMS Procedure: US OB transvaginal EXAMINATION: US OB transvaginal HISTORY: MISSED MENSES COMPARISON: No relevant comparison available. FINDINGS: Transvaginal images Hill intrauterine gestation Gestational sac: 5.25 cm, 11 weeks 1 day CRL: 5.72 cm, 12 weeks 2 days Yolk sac: 4.3 mm Heart rate: 150 beats minute Cervix: Closed, 4.4 cm The uterus is normal, anteverted, anteflexed The right ovary is normal measuring 2.0 x 1.1 x 1.5 cm Left ovary is normal measuring 3.2 x 2.3 x 2.4 cm Clinical age: Unknown Ultrasound age: 12 weeks 2 days Ultrasound VANGIE: 06/24/2024 US/US OB transvaginal IMPRESSION: Viable hill intrauterine gestation measuring 12 weeks 2 days Electronically authenticated by: FRANKIE HENDRICKSON Date: 12/13/2023 13:43 Dictated By: Frankie Hendrickson M.D. Signed By:12/13/23 1345 DD/ 1343 TD/TT: Er Tech: us Bridger Sims DO [facility] Final Result documented in this encounter Visit Diagnoses Not on filedocumented in this encounter
--- OUTSIDE RECORDS SUMMARY | 2025-03-03 11:20 | XMS_ITS | Encounter Summary ---
Author Organization [facility] Address [address] [place] [address] Care Team Providers Care Director Clinical Information Services Name Role Phone Unavailable Primary Care Provider Unavailabl e Encounter Details Date Type Department Care Team (Late st Contact Info) Description 06/10/2024 Abstract [facility] OB [address] [place] [address] [place] [phone] Bridger Sims DO [address] [place] [address] Dr [place], [place] [phone] Social History Tobacco Use Types Packs/Day Years [...] 04/06/2025 9:30 AM EDT Ancillary Procedure [facility] [address] [place] [phone] 04/06/2025 10:30 AM EDT Routine [facility] OB [address] [place] [address] [place] [phone] Sarita Mcnair PA [address] [facility] [address] [place], [place] [phone] documented as of this encounter Visit Diagnoses Not on filedocumented in this encounter
--- OUTSIDE RECORDS SUMMARY | 2025-03-03 11:20 | XMS_ITS | Encounter Summary ---
Author Organization [facility] Address [address] [place] [address] Care Team Providers Care Professor Of Nursing Name Role Phone Unavailable Primary Care Provider Unavailabl e Encounter Details Date Type Department Care Team (Late st Contact Info) Description 05/29/2024 Clinisync Result Encounter [facility] External Department Unsolicited Sarita Ballard PA [address] [place] [address] [place] [address] Social History Tobacco Use Types Packs/Day Years [...] 04/06/2025 9:30 AM EDT Ancillary Procedure [facility] OB [address] [place] [address] [place] [phone] 04/06/2025 10:30 AM EDT Routine [facility] [address] [place] [address] [place] [phone] Sarita Ballard PA [address] [place] [address] [place] [address] documented as of this encounter Procedures Procedure Name Priority Date/Time Associated Diagnosis Comments US OB GROWTH 05/29/2024 9:15 AM EDT documented in this encounter Results * US OB GROWTH (05/29/2024 9:15 AM EDT) Anatomical Region Laterality Modality Other 05/29/2024 9:15 AM EDT Narrative 05/29/2024 9:18 AM EDT [address] [address] Ultrasound Report Signed Patient: YAKELIN MELGOZA MR#: [id number] : 1995 Acct:[id number] Age/Sex: 28 / F ADM Date: 05/29/24 Loc: US Attending Dr: Sarita Ballard Ordering Physician: Sarita Ballard Date of Service: 05/29/24 Procedure(s): US OB growth Accession Number(s): [id number] cc: Sarita Ballard; Physician,Non-Staff M.[facility] [place] [id number] Patient Name: YAKELIN MELGOZA MRN: [id number] date: 1995 Sex: F Assigned Patient Location: US Current Patient Location: US Accession/Order Number: [id number] Exam Date: 05/29/2024 08:30 Report Date: 05/29/2024 09:15 At the request of: SARITA BALLARD Procedure: US OB growth EXAMINATION: US OB growth HISTORY: Size Inconsistent With Dates O26.849 COMPARISON: 04/29/2024 FINDINGS: Heart Rate: 136.36 bpm Amniotic Fluid Volume: 15.4 cm, largest fluid pocket 5.5 cm Number: 1 Position: Cephalic presentation, longitudinal lie BIOMETRY: BPD: 9.26 cm; 37 weeks 4 days; 89.50 % HC: 34.50 cm; 39 weeks 6 days; 94 % AC: 31.65 cm; 35 weeks 4 days; 40.20 % FL: 6.93 cm; 35 weeks 4 days; 27.70 % EFW: 2885.93 g; 51.20 %, 6 lbs. 6 oz. FL/AC: 21.90 FL/BPD: 74.84 HC/AC: 1.09 GESTATIONAL AGE: Age by EDC: 36 weeks 2 days VANGIE by EDC: 2024-06-24 Age by US: 37 weeks 1 day VANGIE by US: 2024-06-18 US/US OB growth IMPRESSION: Normal interval growth Electronically authenticated by: FRANKIE HENDRICKSON Date: 05/29/2024 09:15 Dictated By: Frankie Hendrickson M.D. Signed By: 05/29/24917 DD/ 4 TD/TT: Maintenance Representative: Procedure Note Radiology, Radiologist, MD - 05/29/2024 [place] [address] Ultrasound Report Signed Patient: YAKELIN MELGOZA PMR#: [id number] : 1995Acct:[id number] Age/Sex: 28 / FADM Date: 05/29/24 Loc: US Attending Dr: Sarita Ballard Ordering Physician: Sarita Ballard Date of Service: 05/29/24 Procedure(s): US OB growth Accession Number(s): [id number] cc: Sarita Balalrd; Physician,Non-Staff Ashleigh [facility] [place] [id number] Patient Name: YAKELIN MELGOZA MRN: [id number] date: 1995 Sex: F Assigned Patient Location: US Current Patient Location: US Accession/Order Number: [id number] Exam Date: 05/29/2024 08:30 Report Date: 05/29/2024 09:15 At the request of: SARITA BALLARD Procedure: US OB growth EXAMINATION: US OB growth HISTORY: Size Inconsistent With Dates O26.849 COMPARISON: 04/29/2024 FINDINGS: Heart Rate: 136.36 bpm Amniotic Fluid Volume: 15.4 cm, largest fluid pocket 5.5 cm Number: 1 Position: Cephalic presentation, longitudinal lie BIOMETRY: BPD: 9.26 cm; 37 weeks 4 days; 89.50 % HC: 34.50 cm; 39 weeks 6 days; 94 % AC: 31.65 cm; 35 weeks 4 days; 40.20 % FL: 6.93 cm; 35 weeks 4 days; 27.70 % EFW: 2885.93 g; 51.20 %, 6 lbs. 6 oz. FL/AC: 21.90 FL/BPD: 74.84 HC/AC: 1.09 GESTATIONAL AGE: Age by EDC: 36 weeks 2 days VANGIE by EDC: 2024-06-24 Age by US: 37 weeks 1 day VANGIE by US: 2024-06-18 US/US OB growth IMPRESSION: Normal interval growth Electronically authenticated by: FRANKIE HENDRICKSON Date: 05/29/2024 09:15 Dictated By: Frankie Hendrickson M.D. Signed By:05/29/24917 DD/ 4 TD/TT: Maintenance Representative: Sarita ROBERTO [facility] Final Result documented in this encounter Visit Diagnoses Not on filedocumented in this encounter
--- OUTSIDE RECORDS SUMMARY | 2025-03-03 11:20 | XMS_ITS | Clinical Summary ---
Author Organization [facility] tem Address [id number] [address] [place] [address] Care Team Providers Care Optical Fabricator Name Role Phone Sarita Bedoya APRN-PROVIDER RELATIONS SPECIALIST Primary Care Provider + Allergies Active Allergy Reactions Criticality Noted Date Comments Hydrocortisone Hives 09/23/2022 Latex Hives 09/23/2022 Medications multivit-min/ac ari fumarate (MULTI VITAMIN ORAL) Take 1 tablet by mouth daily. Active vits62/FA/om3/dh a/epa ( GUMMY ORAL) Take by mouth. Active Active Problems No known active problems Immunizations Immunization Administration Dates Next Due Tdap 09/23/2022 Family History Medical History Relation Name Comments Diabetes Father Heart attack Maternal Grandfather Hypertension Maternal Grandmother Hypertension Mother Heart attack Paternal Grandfather Relation Name Status Comments Father Maternal Grandfather Maternal Grandmother Mother Paternal Grandfather Social History Tobacco Use Types Packs/Day Years Used Date Smoking Tobacco: Never Smokeless Tobacco: Never Tobacco Cessation:Counseling Given: Not Answered Alcohol Use Standard Drinks/Week Comments Not Currently 0 (1 standard drink = 0.6 oz pur e alcohol) Hunger Screening Answer Date Recorded Within the past 12 months we worried whether our food would run out before we got money to buy more. Never True 09/23/2022 Within the past 12 months th e food we bought just didn't last and we didn't have money to get more. Never True 09/23/2022 Comments No Sex and Gender Information Value Date Recorded Sex Assigned at Not on file Legal Sex Female 1:18 PM EDT Gender Identity Not on file Sexual Orientation Not on file Last Filed Vital Signs Vital Sign Reading Time Taken Comments Blood Pressure 116/86 09/25/2023 1:12 PM EST Pulse 68 09/23/2022 1:47 PM EST Temperature 37.2 C (98.9 F) 09/23/2022 1:47 PM EST Respiratory Rate 16 09/23/2022 1:47 PM EST Oxygen Saturation 99% 09/23/2022 1:47 PM EST Inhaled Oxygen Concentration - - Weight 71.2 kg (157 lb) 09/25/2023 1:12 PM EST Height 157.5 cm (5' 2 ) 09/25/2023 1:12 PM EST Body Mass Index 28.72 09/25/2023 1:12 PM EST Plan of Treatment Health Maintenance Due Date Last Done Comments Depression Screening 2007 Pap Smear 12/04/2016 Adult BMI Screening 09/25/2024 09/25/2023 Tobacco Screening 09/25/2024 09/25/2023 Influenza Vaccine 05/18/2025 DTaP,Tdap and Td Vaccines (3 - Td or Tdap) 09/23/2032 09/23/2022, 02/17/2016 Medical Devices Not on file Insurance [employer] MEDICAID MEDICAID Care Teams Optical Fabricator Relationship Specialty Start Date End Date Sarita Bedoya, KIESHA-PROVIDER RELATIONS SPECIALIST [address] [address] PCP - General Nurse Practitioner 05/05/21
[2025-03-05 01:07] LABS: AFP Value 37.2 ng/mL (.); Gest. Age on Collection Date 15.9 weeks (.); Gestat. Age Based On Ultrasound (.); Insulin Dep Diabetes No (.); Maternal Age At EDD 29.7 yr (.); OSBR Risk 1 IN 5251 (.); Results Report (.)
== END 2025-03-03 11:16 | disposition home or self-care (01) ==
LOC: LAB 11:16
PROVIDERS: Visit Provider Obstetrics & Gynecology
DX: Z34.92 Encounter for supervision of normal pregnancy, unspecified, second trimester (principal); Z3A.15 15 weeks gestation of pregnancy
CPT/HCPCS: 36415; 82105

== ENCOUNTER 2025-05-07 06:34 | Outpatient (OUT) | payer OTHER, SELFPAY ==
--- OUTSIDE RECORDS SUMMARY | 2025-05-07 06:38 | XMS_ITS | CCD ---
Author Organization [facility] Care Team Providers Care Critical Power Technician Name Role Phone Alvaro Uptonamber Almendarez Unavailable UnavailRAMONA Singleton Admdawood Unavailable RAMONA JIMÉNEZ Attending Unavailable RAMONA JIMÉNEZ Consulting Unavailable RAMONA JIMÉNEZ Admitting Unavailable RAMONA JIÉMNEZ Attending Unavailable REQUEST, NONE LISTED Primary Care [...] Admitting Unavailable RAMONA JIMÉNEZ Attending Unavailable RAMONA JIMÉENZ Consulting Unavailable RAMONA JIMÉNEZ Admitting Unavailable RAMONA JIMÉNEZ Attending Unavailable RAMONA JIMÉNEZ Consulting Unavailable RAMONA JIMÉNEZ Admitting Unavailable RAMONA JIMÉNEZ Attending Unavailable RAMONA JIMÉNEZ Consulting Unavailable RAMONA JIMÉNEZ Admitting Unavailable RAMONA JIMÉNEZ Attending Unavailable RAMONA JIMÉNEZ Primary Care Unavailable RAMONA JIMÉNEZ Consulting Unavailable ROBINSON MICHELLE Consulting Unavailable RAMONA JIMÉNEZ Procedure Practitioner Unavailab le Cleemput CASTINGS DRAFTER-CUSTOMER CARE SPECIALIST, Sarita Emmanuel Primary Care Unavai lable Cleemput CASTINGS DRAFTER-CUSTOMER CARE SPECIALIST, Sarita Emmanuel Attending Unavai lable Cleemput CASTINGS DRAFTER-CUSTOMER CARE SPECIALIST, Sarita Emmanuel Attending Unavai lable Cleemput CASTINGS DRAFTER-CUSTOMER CARE SPECIALIST, Sarita Emmanuel Primary Care Unavai lable Cleemput CASTINGS DRAFTER-CUSTOMER CARE SPECIALIST, Sarita Emmanuel Referring Jayy Roach MD, Demetrice Portillo Attending Unavailable Cleemput CASTINGS DRAFTER-CUSTOMER CARE SPECIALIST, Sarita Emmanuel Primary Care Unavai lable Cleemput CASTINGS DRAFTER-CUSTOMER CARE SPECIALISTSarita Primary Care Unavai lable Cleemput CASTINGS DRAFTER-CHRISTOPHER, Sarita Emmanuel Attending Isabelvaeladia lable Cleemput KIESHA - ESTHER, Sarita Costello Primary Care Provider SARITA BEDOYA Referring Unavailable CLEEMPROSELYN, SARITA Costello Primary Care Unavailable Unavailable Primary Care Provider Unavailabl e Cleemput CASTINGS DRAFTER - MICA PASTER, Sarita Costello Primary Care Provider Cleemput CASTINGS DRAFTER-CUSTOMER CARE SPECIALIST, Sarita Costello Primary Care Provider SARITA BEDOYA Primary Care Unavailable MONICO SIMS Referring Unavailable CLEEMPUT, SARITA Costello Primary Care Unavailable EVANGELIST JENKINS Attending Unavailable BETHANY, MONICO Attending Unavailable ELOI, SARITA Attending Unavailable ELIO, SARITA Attending Unavailable ELIO, SARITA Attending Unavailable BETHANY, MONICO Attending Unavailable ELIO, SARITA Attending Unavailable BETHANY, MONICO Attending Unavailable Allergies Allergy Classification Reported Allergen(s) Allergy Type Date of Onset Reaction(s) Facility (1 source) Adhesive agent Drug allergy (disorder) [facility] Repository (2 sources) Latex; Translations: [LATEX] Drug allergy (disorder) 3 [facility] (1 source) morphine Drug Allergy [facility] (1 source) Latex Drug allergy (disorder) 0 [facility] Repository (5 sources) Latex Propensity to adverse reactions to drug 3 [facility] (3 sources) Hydrocortisone; Translations: [HYDROCORTISONE] Drug Allergy 3 [facility] Repository (20 sources) Cortisone Drug Allergy 4 Rash [facility] Healthcare Work Phone: (20 sources) Latex Propensity to adverse reactions 3 [facility] Healthcare Work Phone: (6 sources) Morphine Drug Allergy 4 [facility] Medications Current Medications Medication Drug Class(es) Dates [...] polysaccharide iron complex 391 mg oral capsule (20 sources) Start: 03-27-2024 End: 03-27-2025 take 1 capsule by mouth once daily iron polysaccharides (ProFe) 391.3 (180 Fe) MG capsule Indications: Anemia affecting in second trimester ([facility]) Take 1 capsule (391.3 mg) by mouth Daily 30 capsule 6 03/27/2024 03/27/2025 Active Vit-Fe Fumarate-FA ( VITAMIN PO) (20 sources) Vit-Fe Fumarate-FA ( VITAMIN PO) Indications: Missed menses , , unspecified gestational age (HHS-HCC) Take by mouth Active Vit-Fe Fumarate-FA ( VITAMIN PO) Indications: Missed menses , , unspecified gestational age Take by mouth Active Vit-Fe Fumarate-FA ( VITAMIN PO) Take by mouth Active vits62/FA/om3/dha/e pa ( GUMMY ORAL) (2 sources) vits62/ FA/om3/dha/epa ( GUMMY ORAL) Take by mouth. Active vits62/ FA/om3/dha/epa ( GUMMY ORAL) Take by mouth. 0 Active Completed/Discontinued Medications Medication Drug Class(es) Dates Sig (Normalized) Sig (Original) levonorgestrel 0.089267 mg/hr intrauterine system (1 source) Progestin, Progestin-containi [...] unspecified, unspecified trimester] Onset: 11-07-2019 06-03-2024 Episodic Other screening for suspected conditions (not mental disorders or infectious disease) (4 sources) Patient encounter status; Translations: [Encounter for other specified screening] 03-03-2025 Episodic Residual codes; unclassified (9 sources) Gestation period, 15 weeks; Translations: [15 weeks gestation of ] Onset: 03-03-2025 03-03-2025 Episodic Residual codes; unclassified (2 sources) Gestation period, 20 weeks; Translations: [20 weeks gestation of ] 04-06-2025 Episodic Residual codes; unclassified (2 sources) Gestation period, 24 weeks; Translations: [24 weeks gestation of ] 05-04-2025 Episodic Residual codes; unclassified (1 source) 39 [...] Test Name Value Interpretation Reference Range Facility US OB LIMITED 1+ FETUSESon 0 05-04-2025 US OB LIMITED 1+ FETUSES EXAM: US OB LIMITED 1+ FETUSES HISTORY: Follow up anatomy. COMPARISON: Ob ultrasound 04/06/2025. TECHNIQUE: Two-dimensional transabdominal grayscale ultrasound imaging of the pelvis was performed. FINDINGS: Gestation: Single Presentation: Cephalic Cardiac Activity: 142 beats per minute Placental Location: Posterior with uterine synechiae Amniotic Fluid: Appears adequate ANATOMY Four Chamber Heart: Unremarkable LVOT: Unremarkable RVOT: Unremarkable IMPRESSION: 1. Single, live intrauterine gestation 24 weeks, 5 days by LMP. VANGIE by LMP is 08/19/2025. 2. Unremarkable four-chamber heart and outflow tracts. 3. Uterine synechiae again identified. Interpreted by: Electronically signed by HEENA BHARDWAJ II, MD, PHD at 05-May-2025 07:59:10 AM [facility] Normal Not Available Comment on above: Order Comment: US OB INCOMPLETE ANATOMY Estimated Date of Delivery: 08/19/25 Gestational Age as of 04/13/2025: 21w5d Urinalysis macro (dipstick) panel (U)on 05-04-2025 Bilirubin, UA Negative Negative - 4(70) +++ mg/dL [facility] Blood, UA Negative Negative - 50 Haseeb/mcL [facility] Clarity, UA Clear [facility] re Color, UA Straw [facility] Glucose, UA Negative Negative - 1999(110) ++++ mg/dL [facility] Interpretation and review of laboratory results Abnormal [facility] Ketones, UA Negative Negative - 160(16) ++++ mg/dL [facility] Leukocytes, UA Negative Negative - 500+++ Ronaldo/mcL [facility] Nitrite, UA Negative Negative - Positive [facility] pH, UA 6 5 - 9 [facility] Protein, UA Positive Negative - 2000(20) ++++ mg/dL [facility] Spec Grav, UA 1.03 1 - 1.03 [facility] Urobilinogen, UA 1.0 0.2 - 12 mg/dL [facility] US OB 14+ WEEKS ANATOMY SCAN on 04-06-2025 US OB 14+ WEEKS ANATOMY SCAN EXAM: US OB 14+ WEEKS ANATOMY SCAN HISTORY: anatomy. COMPARISON: Ob ultrasound 02/13/2025. TECHNIQUE: Two-dimensional transabdominal grayscale ultrasound imaging of the pelvis was performed. FINDINGS: Gestation: Single Presentation: Cephalic Cardiac Activity: 148 beats per minute Placental Location: Posterior with possible uterine synechiae Distance from Placental Tip to Cervix: 4.8 cm Cervical Length: 4.1 cm Amniotic Fluid: Appears adequate MEASUREMENTS: BPD: 4.7 cm EGA: 20 weeks 0 days HC: 18.0 cm EGA: 20 weeks 3 days AC: 16.3 cm EGA: 21 weeks 3 days FL: 3.6 cm EGA: 21 weeks 2 days HC/AC Ratio: 1.10 The gestational age by today's ultrasound is 20 weeks 6 days (+/- 10 days gestation). Estimated Weight: 407 grams, +/- 61 grams ( 0 lb 14 oz). Weight Percentile for gestational age: 73 % ANATOMY C-Spine: Unremarkable T-Spine: Unremarkable L-Spine: Unremarkable Sacrum: Unremarkable Four Chamber Heart: Not visualized LVOT: Not visualized RVOT: Not visualized Stomach: Unremarkable Kidneys: Unremarkable Bladder: Unremarkable Diaphragm: Unremarkable Cord insertion: Unremarkable Cord vessels: Three Lateral Ventricles: Unremarkable Cerebellum: Unremarkable Cisterna Magna: Unremarkable Posterior Fossa: Unremarkable Right Femur: Unremarkable Left Femur: Unremarkable Right Tib/Fib: Unremarkable Left Tib/Fib: Unremarkable Right Rad/Ulnar: Unremarkable Left Rad/Ulnar: Unremarkable Right Humerus: Unremarkable Left Humerus: Unremarkable Nose/Lips: Unremarkable Profile: Unremarkable Orbits: Unremarkable IMPRESSION: 1. Single, live intrauterine gestation 20 weeks, 5 days by LMP. Today's ultrasound measurements correlate with a gestational age of 20 weeks 6 days. Estimated weight is 407 grams, +/- 61 grams ( 0 lb 14 oz) which correlates to 73 %. VANGIE by today's ultrasound is 08/18/2025. 2. Non-visualization of the four-chamber heart and outflow tracts. A short-term follow-up ultrasound is recommended. 3. Possible uterine synechiae. Consultation with MFM is recommended. Interpreted by: Electronically signed by HEENA BHARDWAJ II, MD, PHD at 07-Apr-2025 07:25:13 AM [facility] Normal Not Available Comment on above: Order Comment: US OB ANATOMY SINGLE W US OB CERVICAL LENGTH Estimated Date of Delivery: 08/19/25 Gestational Age as of 03/03/2025: 15w6d AFP, SERUM, OPEN SPINA BIFID Aon 03-05-2025 AFP MOM 1.27 . [facility] e AFP VALUE 37.2 ng/mL . [facility] COMMENT: Comment . [facility] Comment on above: Crystal Mancilla , Ph.D., [facility] Director References: Available Upon Request. Multiples Of Median Cutoffs For AFP Elevations Colbert 2.5 Black 2.8 IDD 2.0 Twins 4.5 Abbreviation Definitions IDD - Insulin Dep Diabetes OSBR - Open Spina Bifida Risk For further inquiries contact [facility] at [phone]. This test was developed and its performance characteristics determined by [employer]. It has not been cleared or approved by the Food and Drug Administration. Performed at: [facility] [place], [place] [id number] Sweet Pickle Maker: Nickolas Flynn [facility], Phone: [phone] GEST. AGE ON COLLECTION DATE 15.9 . weeks [facility] GESTAT. AGE BASED ON Ultrasound . [facility] Comment on above: 15.9 on 03/03/2025 Recalculations are not recommended when gestational dating by LMP and ultrasound are within 10 days. INSULIN DEP DIABETES No . [facility] Healthcare INTERPRETATION Comment . [facility] Healt hcare Comment on above: Interpretation: Scre en Negative This result is screen negative for OSB. The AFP MoM calculated is based on the gestational age provided. MS-AFP can identify up to 80% of open neural tube defects. Closed neural tube defects and some open defects may not be detected by this test. This test does not screen for Down Syndrome or Trisomy 18. If screening for Down Syndrome or Trisomy 18 is desired, contact [facility] to discuss available options. The [employer] [employer] recommends amniocentesis be offered to women age 35 and older. [age] [facility] MULTIPLE GESTATION No . [facility] H ealthcare OSBR RISK 1 IN 5251 . [facility] . [facility] [email or web address] e RESULTS Report . [facility] [email or web address] e TEST RESULTS: Negative . [facility] WEIGHT 178 . lbs [facility] [email or web address] e N N ULTRASOUND [id number] 15 N 1 178 N N N N N [facility]/ [facility] [email or web address] e Urinalysis macro (dipstick) panel (U)on 03-03-2025 Bilirubin, UA Negative Negative - 4(70) +++ mg/dL [facility] Blood, UA Negative Negative - 50 Haseeb/mcL [facility] Clarity, UA Clear [facility] re Color, UA Yellow [facility] [email or web address] Glucose, UA Negative Negative - 1999(110) ++++ mg/dL [facility] Interpretation and review of laboratory results Abnormal [facility] Ketones, UA Negative Negative - 160(16) ++++ mg/dL [facility] Leukocytes, UA Negative Negative - 500+++ Ronaldo/mcL [facility] Nitrite, UA Negative Negative - Positive [facility] pH, UA 7.5 5 - 9 [facility] [email or web address] Protein, UA Trace Negative - 1999(20) ++++ mg/dL [facility] Spec Grav, UA 1.02 1 - 1.03 [facility] Urobilinogen, UA 0.2 0.2 - 12 mg/dL [facility] BOX TESTon 03-02-2025 BOX TEST SENT OUT [employer] [facility] BOX1 [facility] [email or web address] e BOX2 03/02/25 [facility] [email or web address] UNITY BOX [facility] [email or web address] e HCG ( test) Ql (U)o n 02-13-2025 Interpretation and review of laboratory results Abnormal [facility] Preg Test, Ur Positive Negative [facility] No Panel Informationon 02-13 [facility] [...] II, MD, PHD at 16-Feb-2025 10:22:48 AM [facility] Normal Not Available Comment on above: Order Comment: US OB TRANSVAGINAL No LMP recorded. Urinalysis macro (dipstick) panel (U)on 02-13-2025 Bilirubin, UA Negative Negative - 4(70) +++ mg/dL [facility] Blood, UA Negative Negative - 50 Haseeb/mcL [facility] Clarity, UA Clear [facility] re Color, UA Yellow [facility] Glucose, UA Negative Negative - 1999(110) ++++ mg/dL [facility] Interpretation and review of laboratory results Normal [facility] Ketones, UA Negative Negative - 160(16) ++++ mg/dL [facility] Leukocytes, UA Negative Negative - 500+++ Ronaldo/mcL [facility] Nitrite, UA Negative Negative - Positive [facility] pH, UA 7 5 - 9 [facility] e Protein, UA Negative Negative - 1999(20) ++++ mg/dL [facility] Spec Grav, UA 1.025 1 - 1.03 [facility] Urobilinogen, UA 0.2 0.2 - 12 mg/dL [facility] ALL HCG, QUANTITATIVEon 04-3 Interpretation and review of laboratory results Abnormal [facility] MHPT HCG, QUANT [id number] High [facility] thcare Comment on above: Non-preg premeno <=5 Postmeno <=8 Male <=3 If HCG results do not concur with clinical observations, additional testing to confirm results is recommended. Original Ordering Provider: [facility]UR[facility], Quanton 01-14-2025 HCG, Quant [id number] mIU/mL High 0-7 [facility] Comment on above: Result Comment: Non-preg premeno <=5 Postmeno <=8 Male <=3 If HCG results do not concur with clinical observations, additional testing to confirm results is recommended. Performed By: #### B HCG #### [facility] [address] [place] [address] Sweet Pickle Maker: Frankie Sen MD HCG, Quantitative, on 01-14-2025 HCG.beta subunit Qn [id number] m[IU]/mL High [facility] Comment on above: Non-preg premeno <=5 Postmeno <=8 Male <=3 If HCG results do not concur with clinical observations, additional testing to confirm results is recommended. Interpretation and review of laboratory results Abnormal [facility] XR FINGER LEFT (MIN 2 VIEWS) [...] Koffi Ortez MD 09/13/24 Final result Normal [facility] XR Finger - left 2 Viewson 1 11-14-2023 No acute osseous abnormality. [facility] RIS CONSOLIDATED EXAMINATION: THREE XRAY VIEWS OF THE LEFT FINGERS 09/13/2024 6:42 pm COMPARISON: None. HISTORY: ORDERING SYSTEM PROVIDED HISTORY: lac TECHNOLOGIST PROVIDED HISTORY: lac Specify which digit to image->Third FINDINGS: Bone: No acute fracture. Mineralization: Normal bone mineralization. Joint: No dislocation. No significant degenerative changes. Soft tissues: Unremarkable. [facility] Koffi Capellan MD - 09/13/2024 EXAMINATION: THREE XRAY VIEWS OF THE LEFT FINGERS 09/13/2024 6:42 pm COMPARISON: None. HISTORY: ORDERING SYSTEM PROVIDED HISTORY: lac TECHNOLOGIST PROVIDED HISTORY: lac Specify which digit to image->Third FINDINGS: Bone: No acute fracture. Mineralization: Normal bone mineralization. Joint: No dislocation. No significant degenerative changes. Soft tissues: Unremarkable. IMPRESSION: No acute osseous abnormality. [facility] Radiology Study observation (narrative) [facility] XR Finger - left 2 ViewsOrde red By: Koffi Ortez on 09-13-2024 [facility] Work Phone: ALL CBC WITH AUTO DIFFon BASOPHILS ABSOLUTE AUTO 0.0 [facility] Basophils/100 WBC (Bld) 0.2 % 0.2 - 2.0 % [facility] Eosinophils/100 WBC (Bld) 0.8 % Low 0.9 - 7.0 % [facility] Erythrocyte distribution width (RBC) [Ratio] 13.2 % 11.0 - 15.0 % [facility] Hematocrit (Bld) [Volume fraction] 25.7 % Low 36.0 - 48.0 % [facility] Hem[facility] (Bld) [Mass/Vol] 8.3 g/dL Low 12.0 - 16.0 g/dL [facility] IMMATURE GRANULOCYTES ABS AUTO 0.09 High [facility] Immature granulocytes/100 WBC (Bld) 0.7 % High 0.0 - 0.5 % [facility] Interpretation and review of laboratory results Abnormal [facility] LYMPHOCYTES ABSOLUTE AUTO 1.4 [facility] Lymphocytes/100 WBC (Bld) 11.5 % Low 20.5 - 60.0 % [facility] MCH (RBC) [Entitic mass] 25.5 pg Low 26.7 - 34.0 pg [facility] MCHC (RBC) [Mass/Vol] 32.3 g/dL 29.9 - 35.2 g/dL [facility] MCV (RBC) [Entitic vol] 78.8 fL Low 81.0 - 99.0 fL [facility] MONOCYTES ABSOLUTE AUTO 0.9 High [facility] Monocytes/100 WBC (Bld) 7.2 % 1.7 - 12.0 % [facility] NEUTROPHILS ABSOLUTE AUTO 9.7 High [facility] Neutrophils/100 WBC (Bld) 79.6 % High 43.0 - 75.0 % [facility] Platelet mean volume (Bld) [Entitic vol] 10.8 fL 9.5 - 13.5 fL [facility] are TBH EO # 0.1 [facility] TB PLT 162 [facility] TB RBC 3.26 Low [facility] e TB WBC 12.2 High [facility] e [facility] e [facility] CBC WITH PLATELET NO DI FFERENTIALon 06-17-2024 Erythrocyte distribution width (RBC) [Ratio] 13.0 % 11.0 - 15.0 % [facility] Hematocrit (Bld) [Volume fraction] 28.1 % Low 36.0 - 48.0 % [facility] e Hemoglobin (Bld) [Mass/Vol] 9.2 g/dL Low 12.0 - 16.0 g/dL [facility] Interpretation and review of laboratory results Abnormal [facility] MCH (RBC) [Entitic mass] 25.5 pg Low 26.7 - 34.0 pg [facility] MCHC (RBC) [Mass/Vol] 32.7 g/dL 29.9 - 35.2 g/dL [facility] MCV (RBC) [Entitic vol] 77.8 fL Low 81.0 - 99.0 fL [facility] Platelet mean volume (Bld) [Entitic vol] 11.0 fL 9.5 - 13.5 fL [facility] are TBH PLT 170 [facility] TB RBC 3.61 Low [facility] Health[facility] e TB WBC 8.4 [facility] Urinalysis macro (dipstick) panel (U)on 06-10-2024 Bilirubin, UA Negative Negative - 4(70) +++ mg/dL [facility] Blood, UA Negative Negative - 50 Haseeb/mcL [facility] Clarity, UA Clear [facility] re Color, UA Yellow [facility] Healthcar e Glucose, UA Negative Negative - 1999(110) ++++ mg/dL [facility] Interpretation and review of laboratory results Abnormal [facility] Ketones, UA Positive Negative - 160(16) ++++ mg/dL [facility] Leukocytes, UA Positive Negative - 500+++ Ronaldo/mcL [facility] Healthcare Nitrite, UA Negative Negative - Positive [facility] pH, UA 6.5 5 - 9 [facility] Protein, UA Negative Negative - 1999(20) ++++ mg/dL [facility] Healthcare Spec Grav, UA 1.025 1 - 1.03 [facility] care Urobilinogen, UA 1.0 0.2 - 12 mg/dL [facility] Urinalysis macro (dipstick) panel (U)on 06-03-2024 Bilirubin, UA Negative Negative - 4(70) +++ mg/dL [facility] Blood, UA Negative Negative - 50 Haseeb/mcL [facility] Healthcare Clarity, UA Clear [facility] Healthca re Color, UA Yellow [facility] Healthcar e Glucose, UA Negative Negative - 1999(110) ++++ mg/dL [facility] Interpretation and review of laboratory results Abnormal [facility] Ketones, UA Positive Negative - 160(16) ++++ mg/dL [facility] Leukocytes, UA Positive Negative - 500+++ Ronaldo/mcL [facility] Healthcare Nitrite, UA Negative Negative - Positive [facility] pH, UA 5.5 5 - 9 [facility] Healthcar e Protein, UA Positive Negative - 1999(20) ++++ mg/dL [facility] Spec Grav, UA 1.025 1 - 1.03 [facility] care Urobilinogen, UA 1.0 0.2 - 12 mg/dL [facility] Urinalysis macro (dipstick) panel (U)on 05-27-2024 Bilirubin, UA Negative Negative - 4(70) +++ mg/dL [facility] Blood, UA Negative Negative - 50 Haseeb/mcL [facility] Healthcare Clarity, UA Clear [facility] re Color, UA Yellow [facility] Glucose, UA Negative Negative - 1999(110) ++++ mg/dL [facility] Interpretation and review of laboratory results Abnormal [facility] Ketones, UA Negative Negative - 160(16) ++++ mg/dL [facility] Leukocytes, UA Positive Negative - 500+++ Ronaldo/mcL [facility] Comment on above: small Nitrite, UA Negative Negative - Positive [facility] pH, UA 8.5 5 - 9 [facility] Health[facility] e Protein, UA Negative Negative - 1999(20) ++++ mg/dL [facility] Spec Grav, UA 1.020 1 - 1.03 [facility] Urobilinogen, UA 0.2 0.2 - 12 mg/dL [facility] Urinalysis macro (dipstick) panel (U)on 05-13-2024 Bilirubin, UA Negative Negative - 4(70) +++ mg/dL [facility] Blood, UA Negative Negative - 50 Haseeb/mcL [facility] Clarity, UA Clear [facility] re Color, UA Yellow [facility] e Glucose, UA Negative Negative - 1999(110) ++++ mg/dL [facility] Interpretation and review of laboratory results Abnormal [facility] Ketones, UA Negative Negative - 160(16) ++++ mg/dL [facility] Leukocytes, UA Trace Negative - 500+++ Ronaldo/mcL [facility] Nitrite, UA Negative Negative - Positive [facility] pH, UA 8.5 5 - 9 [facility] Protein, UA Trace Negative - 1999(20) ++++ mg/dL [facility] Spec Grav, UA 1.020 1 - 1.03 [facility] Urobilinogen, UA 0.2 0.2 - 12 mg/dL [facility] Clostridium Difficile Toxin/ Antigenon 05-21-2023 C. difficile glutamate dehydrogenase and toxins A+B IA.rapid Ql (Stl) Negative NEGATIVE [facility] Comment on above: No C. difficile anti gen and Toxin Detected. Specimen Description .[facility] Family Medicine Office/Clini c Noteon 03-08-2023 Family Medicine Office/Clinic Note Chief Complaint Yearly f/u History of Present Illness wellness exam VSS she gets headaches- weekly- Tylenol, Excedrin migraine, she has to go to bed, sleeps, usually gets better, no light or noise, sensitivity, no nausea, pounding she prefers as needed medication for headaches she needs a new BRICK PICKER Review of Systems General Adult ROS Fatigue: [...] has no concerns she has IUD- gave BRICK PICKER info Ordered: EKG 2. Migraines try imitrex if EKG is normal f/u in 1 month EKG normal Ordered: EKG Orders: SUMAtriptan, 1 tabs, Oral, Daily, PRN, may repeat dose after 2 hours up to a maximum of 200 mg in 24 hours, X 30 days, # 9 tabs, 0 Refill(s), 04/07/23 9:10:00 EDT, Pharmacy: [facility] [id number] Medical Decision Making Chronic conditions NOT treated [...] by Sarita Vo 03/08/23 11:43 EDT Normal [facility] CBC AUTO DIFFon 05-25-2020 Basophils (Bld) [#/Vol] 0.0 103/ul Normal 0.0-0.1 [facility] Comment on above: Performed By: #### C BC ####[facility] [id number] [place] [address] [id number] Erendira Basophils/100 WBC (Bld) 0.3 % Normal 0.2-2.0 [facility] Comment on above: Performed By: #### C BC ####[facility] [address] [place] [address] [id number] Erendira Eosinophils (Bld) [#/Vol] 0.1 103/ul Normal 0.0-0.7 [facility] Comment on above: Performed By: #### C BC ####[facility] [address] [place] [address] [id number] Erendira Eosinophils/100 WBC (Bld) 1.2 % Normal 0.9-7.0 [facility] Comment on above: Performed By: #### C BC ####[facility] [address] [place] [address] [id number] Erendira Erythrocyte distribution width (RBC) [Ratio] 14.1 % Normal 11.0-15.0 [facility] Comment on above: Performed By: #### C BC ####[facility] Ttyjou[address] [place] [address] 81530Dhkqzk Erendira Hematocrit (Bld) [Volume fraction] 32.9 % Critically low 36.0-48.0 [facility] Comment on above: Performed By: #### C BC ####[facility] Ekgndijhge1533 [place], [place] [address]Dkzxey Erendira Hemoglobin (Bld) [Mass/Vol] 11.2 g/dL Critically low 12.0-16.0 [facility] Comment on above: Performed By: #### C BC ####[facility] Drwjqvabaq5650 [place], [place] [address]Emtmqw Erendira IG # 0.09 10e3/ul Critically high 0.00-0.03 [facility] Comment on above: Performed By: #### C BC ####[facility] T[address]wox[address]lo[address] [place] [id number] Erendira IG % 0.9 % Critically high 0.0-0.5 [facility] Comment on above: Performed By: #### C BC ####[facility] Lmurndswdq2455 [place] [id number] Erendira Lymphocytes (Bld) [#/Vol] 1.3 103/ul Normal 1.2-3.8 [facility] Comment on above: Performed By: #### C BC ####[facility] [address] [place], [place] [address]Gerken Erendira Lymphocytes/100 WBC (Bld) 13.1 % Critically low 20.5-60.0 [facility] Comment on above: Performed By: #### C BC ####[facility] Fnnlzssvwd4118 [place] [id number] Erendira MANUAL DIFF REQ NO Normal [facility] Comment on above: Performed By: #### C BC ####[facility] Bxhxdcerkg9064 [place] [id number] Erendira MCH (RBC) [Entitic mass] 29.6 pg Normal 26.7-34.0 [facility] Comment on above: Performed By: #### C BC ####[facility] Hsnbmhpmsl6496 [place] [id number] Erendira MCHC (RBC) [Mass/Vol] 34.0 g/dL Normal 29.9-35.2 [facility] Comment on above: Performed By: #### C BC ####[facility] Zrfltirzat7356 [place], [place] [address]Hizhvw Erendira MCV (RBC) [Entitic vol] 87.0 fL Normal 81.0-99.0 [facility] Comment on above: Performed By: #### C BC ####[facility] Obtfxjlyeb8901 [place], [place] [address]Ohutes Erendira Monocytes (Bld) [#/Vol] 0.9 103/ul Critically high 0.3-0.8 [facility] Comment on above: Performed By: #### C BC ####[facility] Znieuuusbq1418 [place], [place] [address]Msnraj Erendira Monocytes/100 WBC (Bld) 9.1 % Normal 1.7-12.0 [facility] Comment on above: Performed By: #### C BC ####[facility] Ivdvbpbmdk0156 [place] [id number] Erendira Neutrophils (Bld) [#/Vol] 7.6 103/ul Critically high 1.4-6.5 [facility] Comment on above: Performed By: #### C BC ####[facility] [address] [place] [address] 32523Qkdsxd Erendira Neutrophils/100 WBC (Bld) 75.4 % Critically high 43.0-75.0 [facility] Comment on above: Performed By: #### C BC ####[facility] Vuokdblyyt5663 [place], [place] [address]Flxply Erendira Platelet mean volume (Bld) [Entitic vol] 10.1 fL Normal 9.5-13.5 [facility] Comment on above: Performed By: #### C BC ####[facility] My[address]cm[address] [place] [address] 23032Jiismf Erendira Platelets (Bld) [#/Vol] 200 103/ul Normal 150-450 [facility] Comment on above: Performed By: #### C BC ####[facility] Mozjoexhiz6175 [place] [id number] Erendira RBC (Bld) [#/Vol] 3.78 106/ul Critically low 4.20-5.40 [facility] Comment on above: Performed By: #### C BC ####[facility] Brvmkkxwpi5096 [address] E[place] WBC (Bld) [#/Vol] 10.1 103/ul Normal 4.0-11.0 [facility] Comment on above: Performed By: #### C BC ####[facility] [address] [place] [address] Erendira DRUG SCREEN RAPID (URINE)on 05-25-2020 AMP Negative Normal NEGATIVE [facility] Comment on above: Performed By: #### D RUGRPD ####[facility] V[address] [place], [place] [address] BAR Negative Normal NEGATIVE [facility] Comment on above: Performed By: #### D RUGRPD ####[facility] [address] [place] [address] BUP Negative Normal NEGATIVE [facility] Comment on above: Performed By: #### D RUGRPD ####[facility] X[address] [place] [address] BZO Negative Normal NEGATIVE [facility] Comment on above: Performed By: #### D RUGRPD ####[facility] Sl[address]xs[address] [place] [address] E[place] JAYLA Negative Normal NEGATIVE [facility] Comment on above: Performed By: #### D RUGRPD ####[facility] [address] [place] [address] CUT-OFFS SEE BELOW Normal [facility] Comment on above: Result Comment: AMP (Amphetamine): [...] 300 ng/mL Performed By: #### D RUGRPD ####[facility] Notrlsbqhx5866 [address] DRUG CUT HEADER DRUG CLASS TEST SYSTEM CUT-OFF CONCENTRATIONS ARE FOLLOWS: Normal [facility] Comment on above: Performed By: #### Roque RUGRPD ####[facility] Wyfwvgonks7582 [address] [place] mAMP Negative Normal NEGATIVE [facility] Comment on above: Performed By: #### Roque RUGRPD ####[facility] Vivcwt[address]ni[address] [place] [address] E[place]ira MTD Negative Normal NEGATIVE [facility] Comment on above: Performed By: #### Roque RUGRPD ####[facility] [address] [place] [address] E[place] OPI Negative Normal NEGATIVE [facility] Comment on above: Performed By: #### Roque RUGRPD ####[facility] [address] [place] [address] OXY Negative Normal NEGATIVE [facility] Comment on above: Performed By: #### Roque RUGRPD ####[facility] Xeywivurwz5123 [address] [place] PCP Negative Normal NEGATIVE [facility] Comment on above: Performed By: #### Roque RUGRPD ####[facility] Yzogrvwihf4429 [address] [place] PPX Negative Normal NEGATIVE [facility] Comment on above: Performed By: #### Roque RUGRPD ####[facility] Mlkybywsok5163 [address] [place] TCA Negative Normal NEGATIVE [facility] Comment on above: Performed By: #### Roque RUGRPD ####[facility] Zmcmzbtcxl1744 [address] [place] THC Negative Normal NEGATIVE [facility] Comment on above: Performed By: #### D RUGRPD ####[facility] Fpbradokud7811 [place] [id number] rKishna TYPE AND SCREENon 05-25-2020 TYPE AND SCREEN Negative Normal [facility] Comment on above: Performed By: #### T NS ####[facility] Crnwcbjwhp9[address] [place] COVID-19 PCRon 05-20-2020 SARS-CoV-2, EMILE Not Detected Normal Not Detected [facility] Comment on above: Result Comment: This nucleic acid amplification test was developed and its perfomance characteristics determined by [employer]. Nucleic acid amplification tests include PCR and [...] this assay. Performed By: #### C VDPCR ####[facility] N[address]vt[address] CHLAMYDIA/GONOCOCCUS EMILE (SW AB/URINE/PAPon 05-06-2020 Chlamydia trachomatis, EMILE Negative Normal Negative [facility] Comment on above: Performed By: #### C T/NGNA ####[facility] Cbxldydtyh1099 [address] [place] Neisseria gonorrhoeae, EMILE Negative Normal Negative [facility] Comment on above: Performed By: #### C T/NGNA ####[facility] [address] [place] [address] Erendira GROUP B STREP CULTUREon 04-17 S. agalactiae Ag Ql (Unsp spec) Culture Observations: Negative for Group B Streptococcus Normal [facility] Comment on above: Performed By: #### G BSCX ####[facility] [address] [place] [address] Erendira CBC AUTO DIFFon 03-04-2020 Basophils (Bld) [#/Vol] 0.0 103/ul Normal 0.0-0.1 [facility] Comment on above: Performed By: #### C BC ####[facility] Ox[address]rnlwav[address] [place] [address] Erendira Basophils/100 WBC (Bld) 0.4 % Normal 0.2-2.0 [facility] Comment on above: Performed By: #### C BC ####[facility] T[address] [place] [address] Erendira Eosinophils (Bld) [#/Vol] 0.1 103/ul Normal 0.0-0.7 [facility] Comment on above: Performed By: #### C BC ####[facility] [address] [place] [address] Erendira Eosinophils/100 WBC (Bld) 1.0 % Normal 0.9-7.0 [facility] Comment on above: Performed By: #### C BC ####[facility] [address] [place] [address] Erendira Erythrocyte distribution width (RBC) [Ratio] 13.1 % Normal 11.0-15.0 [facility] Comment on above: Performed By: #### C BC ####[facility] [address]twpfe[address] [place] [address] Erendira Hematocrit (Bld) [Volume fraction] 34.5 % Critically low 36.0-48.0 [facility] Comment on above: Performed By: #### C BC ####[facility] [address]et[address] [place] [address] Erendira Hemoglobin (Bld) [Mass/Vol] 11.6 g/dL Critically low 12.0-16.0 [facility] Comment on above: Performed By: #### C BC ####[facility] Dgabswgdrf9443 [place] [id number] Erendira IG # 0.09 10e3/ul Critically high 0.00-0.03 [facility] Comment on above: Performed By: #### C BC ####[facility] Cydousmmia8804 [address] [place] IG % 0.9 % Critically high 0.0-0.5 [facility] Comment on above: Performed By: #### C BC ####[facility] Hzvoc[address]kswt[address] [place] [address] Ernedira Lymphocytes (Bld) [#/Vol] 1.2 103/ul Normal 1.2-3.8 [facility] Comment on above: Performed By: #### C BC ####[facility] I[address]xwttbb[address] [place] [address] Erendira Lymphocytes/100 WBC (Bld) 12.1 % Critically low 20.5-60.0 [facility] Comment on above: Performed By: #### C BC ####[facility] [address]qcqwcr[address] [place] [address] [place] MANUAL DIFF REQ NO Normal [facility] Comment on above: Performed By: #### C BC ####[facility] [address]zjne[address] [place] [address] Erendira MCH (RBC) [Entitic mass] 30.7 pg Normal 26.7-34.0 [facility] Comment on above: Performed By: #### C BC ####[facility] I[address]lwmeuo4[address] [place], [place] [address]Gerken Erendira MCHC (RBC) [Mass/Vol] 33.6 g/dL Normal 29.9-35.2 [facility] Comment on above: Performed By: #### C BC ####[facility] Z[address]ppksvjyi[address] [place] [address] Erendira MCV (RBC) [Entitic vol] 91.3 fL Normal 81.0-99.0 [facility] Comment on above: Performed By: #### C BC ####[facility] Esyxyxyqxm7734 [place], [place] [address]Macstb Erendira Monocytes (Bld) [#/Vol] 0.7 103/ul Normal 0.3-0.8 [facility] Comment on above: Performed By: #### C BC ####[facility] [address] [place] [address] 87[address]Rcxejn Erendira Monocytes/100 WBC (Bld) 6.8 % Normal 1.7-12.0 [facility] Comment on above: Performed By: #### C BC ####[facility] W[address]xjvrejdf[address] [place], [place] [address]Gerken Erendira Neutrophils (Bld) [#/Vol] 7.8 103/ul Critically high 1.4-6.5 [facility] Comment on above: Performed By: #### C BC ####[facility] Ihggcptrbq[address] [place], [place] [address]Gerken Erendira Neutrophils/100 WBC (Bld) 78.8 % Critically high 43.0-75.0 [facility] Comment on above: Performed By: #### C BC ####[facility] Q[address]ph[address] [place] [address] 133[address]Amdpca Erendira Platelet mean volume (Bld) [Entitic vol] 10.0 fL Normal 9.5-13.5 [facility] Comment on above: Performed By: #### C BC ####[facility] S[address]fx[address] [place] [address] 605[address]Kpcbca Erendira Platelets (Bld) [#/Vol] 163 103/ul Normal 150-450 [facility] Comment on above: Performed By: #### C BC ####[facility] [address]tsctp[address] [place], [place] [address]Gerken Erendira RBC (Bld) [#/Vol] 3.78 106/ul Critically low 4.20-5.[address] [facility] Comment on above: Performed By: #### C BC ####[facility] Nrnvtibhbt7067 [address] [place] WBC (Bld) [#/Vol] 9.9 103/ul Normal 4.0-11.0 [facility] Comment on above: Performed By: #### C BC ####[facility] Rdgjckhvpc7882 [address] [place] GLUCOSE - 1HRon 03-04-2020 Glucose [Mass/Vol] 121 mg/dL Critically high 74-106 T [facility] Comment on above: Performed By: #### G LU1HR ####[facility] Ciqppkanyr5789 [address] [place] CHLAMYDIA/GONOCOCCUS EMILE (SW AB/URINE/PAPon 01-28-2020 Chlamydia trachomatis, EMILE Negative Normal Negative [facility] Comment on above: Performed By: #### C T/NGNA ####[facility] Lmhtfzbjvj5672 [address] [place] Neisseria gonorrhoeae, EMILE Negative Normal Negative [facility] Comment on above: Performed By: #### C T/NGNA ####[facility] Mmuulbjuam7056 [address] [place] TRICHAMONAS VAGINALIS. NAAon 01-28-2020 Trich vag by EMILE Negative Normal Negative [facility] Comment on above: Performed By: #### T RICHNA ####[facility] [address] [place] [address] Erendira US PREG ANATOMY SINGLEon US PREG [...] by: LINDA CAICEDO Date: 2020-01-09 14:28 Normal [facility] PAP ACOG PANEL 3: 21 to 29on 12-30-2019 Age Gdln ACOG Testing 21-29 Normal [facility] Comment on above: Performed By: #### A ROMY #### [facility] [address] [place] [address] Helio Krishna Chlamydia, Nuc. Acid Amp Positive Abnormal Negative [facility] Comment on above: Result Comment: . Performed at: =G Performed By: #### A ROMY #### [facility] [address] [place] [address] Helio Krishna DIAGNOSIS: Comment Normal [facility] Comment on above: Result Comment: NEGA TIVE FOR INTRAEPITHELIAL LESION OR MALIGNANCY. THIS SPECIMEN WAS RESCREENED PART OF OUR QC LAB TECHNICIAN PROGRAM. Performed at: WB Performed By: #### A ROMY #### [facility] [address] [place] [address] Helio Krishna Gonococcus, Nuc. Acid Amp Negative Normal Negative [facility] Comment on above: Result Comment: Perf ormed at: =G Performed By: #### A ROMY #### [facility] [address] [place] [address] Helio Krishna Methodology: Comment Normal [facility] Comment on above: Result Comment: This liquid based ThinPrep(R) pap test was screened with the use of an image guided system. Performed at: WB Performed By: #### A ROMY #### [facility] [address] [place] [address] Helio Krishna Note: Comment Normal [facility] Comment on above: Result Comment: The Pap smear is a screening test designed to aid in the detection of premalignant and malignant conditions of the uterine cervix. It is not a diagnostic procedure and should not be used as the sole means of detecting cervical cancer. Both false-positive and false-negative reports do occur. . Performed at: WB Performed By: #### A ROMY #### [facility] [address] [place] [address] Helio Erendira Performed by: Comment Normal [facility] Comment on above: Result Comment: Cindy Taylor, Transition Specialist (ASCP) Performed at: WB Performed By: #### A ROMY #### [facility] [address] [place] [address] Helio Erendira QC reviewed by: Comment Normal [facility] Comment on above: Result Comment: Shoshana Stevens, Supervisory Transition Specialist (ASCP) Performed at: WB Performed By: #### A ROMY #### [facility] [address] [place] [address] Helio Erendira Reflex Criteria: Comment Normal [facility] Comment on above: Result Comment: The HPV DNA reflex criteria were not met with this specimen result therefore, no HPV testing was performed. . Performed at: WB Performed By: #### A ROMY #### [facility] [address] [place] [address] Helio Erendira Specimen adequacy: Comment Normal [facility] Comment on above: Result Comment: Sati sfactory for evaluation. Endocervical and/or squamous metaplastic cells (endocervical component) are present. Performed at: WB Performed By: #### A ROMY #### [facility] [address] [place] [address] Helio Erendira . . Normal [facility] Comment on above: Result Comment: Perf ormed at: WB Performed By: #### A ROMY #### [facility] [address] [place] [address] Helio Erendira HGB(ELECTP) FRACTION PROFILE on 11-24-2019 Hemoglobin (Bld) [Mass/Vol] 97.3 % Normal 96.4-98.8 [facility] Comment on above: Performed By: #### A ROMY #### [facility] [address] [place] [address] Helio Erendira Hgb A2 2.7 % Normal 1.8-3.2 [facility] Comment on above: Performed By: #### A ROMY #### [facility] [address] [place] [address] Helio Erendira Hgb C 0.0 % Normal 0.0 [facility] Comment on above: Performed By: #### A ROMY #### [facility] [address] [place] [address] Helio Erendira Hgb F 0.0 % Normal 0.0-2.0 [facility] Comment on above: Performed By: #### A ROMY #### [facility] [address] [place] [address] Helio Erendira Hgb S 0.0 % Normal 0.0 [facility] Comment on above: Performed By: #### A ROMY #### [facility] [address] [place] [address] Helio Krishna Hgb Solubility Negative Normal Negative [facility] Comment on above: Performed By: #### A ROMY #### [facility] [address] [place] [address] Helio Krishna Hgb Variant Normal [facility] Comment on above: Performed By: #### A ROMY #### [facility] [address] [place] [address] Helio Krishna Interpretation Comment Normal [facility] Comment on above: Result Comment: Norm al adult hemoglobin present. Performed By: #### A ROMY #### [facility] [address] [place] [address] Helio Krishna HEP B SURFACE ANTIGEN SCREEN on 11-22-2019 HBsAg Screen Negative Normal Negative [facility] Comment on above: Performed By: #### A ROMY #### [facility] [address] [place] [address] Helio Krishna HEPATITIIS C VIRUS ANTIBODYo n 11-22-2019 Hep C Virus Ab <0.1 Normal 0.0-0.9 [facility] Comment on above: Result Comment: Nega tive: < 0.8 Indeterminate: 0.8 - 0.9 Positive: > 0.9 . The CDC recommends that a positive HCV antibody result be followed up with a HCV Nucleic Acid Amplification test (911413). Performed By: #### H #### [facility] [address] [place] [address] Helio Krishna HIV 1 AND 2 WITH REFLEXon HIV Screen 4th Generation wRfx Non Reactive Normal Non Reactive [facility] Comment on above: Performed By: #### A ROMY #### [facility] [address] [place] [address] Helio Krishna RPR QUANTon 11-22-2019 Rapid Plasma Reagin, Quant Non Reactive Normal NonRea<1:1 [facility] Comment on above: Performed By: #### A ROMY #### [facility] [address] [place] [address] Helio Krishna RUBELLA AB IGGon 11-22-2019 Rubella Antibodies, IgG 1.49 index Normal Immune >0.99 [facility] Comment on above: Result Comment: Non- immune <0.90 Equivocal 0.90 - 0.99 Immune >0.99 Performed By: #### A ROMY #### [facility] [address] [place] [address] Helio Erendira VARICELLA IGG ABon 0 Varicella Zoster IgG <135 Critically low Immune >165 [facility] Comment on above: Result Comment: Nega tive <135 Equivocal 135 - 165 Positive >165 A positive result generally indicates exposure to the pathogen or administration of specific immunoglobulins, but it is not indication of active infection or stage of disease. Performed By: #### A ROMY #### [facility] [address] [place], [place] [id number] Helio Erendira CBC AUTO DIFFon 11-21-2019 Basophils (Bld) [#/Vol] 0.0 103/ul Normal 0.0-0.1 [facility] Comment on above: Performed By: #### C BC #### [facility] [address] [place], [place] [id number] Helio Erendira Basophils/100 WBC (Bld) 0.3 % Normal 0.2-2.0 [facility] Comment on above: Performed By: #### C BC #### [facility] [address] [place], [place] [id number] Helio Erendira Eosinophils (Bld) [#/Vol] 0.1 103/ul Normal 0.0-0.7 [facility] Comment on above: Performed By: #### C BC #### [facility] [address] [place], [place] [id number] Helio Erendira Eosinophils/100 WBC (Bld) 0.8 % Critically low 0.9-7.0 [facility] Comment on above: Performed By: #### C BC #### [facility] [address] [place], [place] [id number] Helio Erendira Erythrocyte distribution width (RBC) [Ratio] 12.8 % Normal 11.0-15.0 [facility] Comment on above: Performed By: #### C BC #### [facility] [address] [phone] Helio Erendira Hematocrit (Bld) [Volume fraction] 36.9 % Normal 36.0-48.0 [facility] Comment on above: Performed By: #### C BC #### [facility] [address] [phone] Helio Erendira Hemoglobin (Bld) [Mass/Vol] 12.7 g/dL Normal 12.0-16.0 [facility] Comment on above: Performed By: #### C BC #### [facility] [address] [place], [place] [id number] Helio Erendira IG # 0.05 10e3/ul Critically high 0.00-0.03 [facility] Comment on above: Performed By: #### C BC #### [facility] [address] [place], [place] [id number] Helio Erendira IG % 0.6 % Critically high 0.0-0.5 [facility] Comment on above: Performed By: #### C BC #### [facility] [address] [place], [place] [id number] Helio Erendira Lymphocytes (Bld) [#/Vol] 1.2 103/ul Normal 1.2-3.8 [facility] Comment on above: Performed By: #### C BC #### [facility] [address] [place], [place] [id number] Helio Erendira Lymphocytes/100 WBC (Bld) 13.6 % Critically low 20.5-60.0 [facility] Comment on above: Performed By: #### C BC #### [facility] [address] [place], [place] [id number] Helio Erendira MANUAL DIFF REQ NO Normal The [facility] Comment on above: Performed By: #### C BC #### [facility] [address] [place], [place] [id number] Helio Erendira MCH (RBC) [Entitic mass] 30.0 pg Normal 26.7-34.0 [facility] Comment on above: Performed By: #### C BC #### [facility] [address] [place], [place] [id number] Helio Erendira MCHC (RBC) [Mass/Vol] 34.4 g/dL Normal 29.9-35.2 [facility] Comment on above: Performed By: #### C BC #### [facility] [address], [place] [address] Helioari Krishna MCV (RBC) [Entitic vol] 87.2 fL Normal 81.0-99.0 [facility] Comment on above: Performed By: #### C BC #### [facility] [address] [id number] Helio Erendira Monocytes (Bld) [#/Vol] 0.6 103/ul Normal 0.3-0.8 [facility] Comment on above: Performed By: #### C BC #### [facility] [address] [place], [place] [id number] Helio Erendira Monocytes/100 WBC (Bld) 6.7 % Normal 1.7-12.0 [facility] Comment on above: Performed By: #### C BC #### [facility] [address] [place], [place] [id number] Helio Erendira Neutrophils (Bld) [#/Vol] 6.9 103/ul Critically high 1.4-6.5 [facility] Comment on above: Performed By: #### C BC #### [facility] [address] [place], [place] [phone] Helio Erendira Neutrophils/100 WBC (Bld) 78.0 % Critically high 43.0-75.0 [facility] Comment on above: Performed By: #### C BC #### [facility] [address] [place], [place] [phone] Helio Erendira Platelet mean volume (Bld) [Entitic vol] 9.8 fL Normal 9.5-13.5 [facility] Comment on above: Performed By: #### C BC #### [facility] [address] [place], [place] [phone] Helio Erendira Platelets (Bld) [#/Vol] 200 103/ul Normal 150-450 [facility] Comment on above: Performed By: #### C BC #### [facility] [address] [id number] Helioari Guen RBC (Bld) [#/Vol] 4.23 106/ul Normal 4.20-5.40 [facility] Comment on above: Performed By: #### C BC #### [facility] [address] [place], [place] [phone] Helio Erendira WBC (Bld) [#/Vol] 8.8 103/ul Normal 4.0-11.0 [facility] Comment on above: Performed By: #### C BC #### [facility] [address] [place], [place] [phone] Helio Erendira CULTURE URINEon 11-21-2019 CULTURE URINE Culture Observations: No growth Normal [facility] Comment on above: Performed By: #### A ROMY #### [facility] [address] [place], [place] [phone] Helio Erendira DRUG SCREEN RAPID (URINE)on 11-21-2019 AMP Negative Normal NEGATIVE [facility] Comment on above: Performed By: #### D CHEMA UAMIC #### [facility] [address] [place] [address] Helio Erendira BAR Negative Normal NEGATIVE [facility] Comment on above: Performed By: #### D CHEMA UAMIC #### [facility] [address] [place] [address] Helio Erendira BUP Negative Normal NEGATIVE [facility] Comment on above: Performed By: #### D CHEMA UAMIC #### [facility] [address] [place] [address] Helio Erendira BZO Negative Normal NEGATIVE [facility] Comment on above: Performed By: #### D CHEMA, UAMIC #### [facility] [address] [place] [address] Helio Erendira JAYLA Negative Normal NEGATIVE [facility] Comment on above: Performed By: #### D CHEMA, UAMIC #### [facility] [address] [place] [address] Helio Erendira CUT-OFFS SEE BELOW Normal [facility] Comment on above: Result Comment: AMP (Amphetamine): [...] Antidepressants): 300 ng/mL Performed By: #### D CHEMA UAMIC #### [facility] [address] [place] [address] DRUG CUT HEADER DRUG CLASS TEST SYSTEM CUT-OFF CONCENTRATIONS ARE FOLLOWS: Normal [facility] Comment on above: Performed By: #### Roque BEAR UAMIC #### [facility] [address] [place] [address] [facility] m[facility] Negative Normal NEGATIVE [facility] Comment on above: Performed By: #### Roque BEAR UAMIC #### [facility] [address] [place] [address] [facility] MTD Negative Normal NEGATIVE [facility] Comment on above: Performed By: #### D CHEMA UAMIC #### [facility] [address] [place] [address] Helio Erendira OPI Negative Normal NEGATIVE [facility] Comment on above: Performed By: #### D CHEMA, UAMIC #### [facility] [address] [place] [address] Helio Erendira OXY Negative Normal NEGATIVE [facility] Comment on above: Performed By: #### Roque BEAR UAMIC #### [facility] [address] [place] [address] Helio Erendira PCP Negative Normal NEGATIVE [facility] Comment on above: Performed By: #### Roque BEAR UAMIC #### [facility] [address] [place] [address] Helio Krishna PPX Negative Normal NEGATIVE [facility] Comment on above: Performed By: #### D CHEMA, UAMIC #### [facility] [address] [place] [address] Helio Krishna TCA Negative Normal NEGATIVE [facility] Comment on above: Performed By: #### D CHEMA, UAMIC #### [facility] [address] [place] [address] Helio Guen THC Negative Normal NEGATIVE [facility] Comment on above: Performed By: #### D CHEMA, UAMIC #### [facility] [address] [address] Helio Krishna GLYCOHEMOGLOBIN A1Con 2019 Glucose [Mass/Vol] 94 mg/dL Normal [facility] Comment on above: Performed By: #### A 1C #### [facility] [address] [place] [address] Helio Krishna HbA1c (Bld) [Mass fraction] 4.9 % Normal <=6.0 [facility] Comment on above: Performed By: #### A 1C #### [facility] [address] [place] [address] Helioari Krishna PREG QUANT HCGon 11-21-2019 HCG QUANT 11087.00 mIU/mL Normal [facility] Comment on above: Performed By: #### P REGQNT #### [facility] [address] [place] [address] Helio Krishna HCG RANGE SEE BELOW Normal [facility] Comment on above: Result Comment: 5-50 0-1 WEEK 40-300 1-2 WEEKS 100-1,000 2-3 WEEKS 500-6,000 3-4 WEEKS 5,000-200,000 1-2 MONTHS 10,000-100,000 2-3 MONTHS 3,000-50,000 2ND TRIMESTER 1,000-50,000 3RD TRIMESTER Performed By: #### P REGQNT #### [facility] [address] [place] [address] Helio Erendira TYPE AND SCREENon 11-21-2019 TYPE AND SCREEN Negative Normal [facility] Comment on above: Performed By: #### T NS #### [facility] [address] [place] [address] Helio Erendira UA RANDOM W/MICROSCOPICon Bacteria LM.HPF (Urine sed) [#/Area] TRACE Normal NONE SEEN [facility] Comment on above: Performed By: #### D CHEMA, UAMIC #### [facility] [address] [place] [address] Helio Erendira Bilirubin [Mass/Vol] Negative Normal NEGATIVE [facility] Comment on above: Performed By: #### D CHEMA UAMIC #### [facility] [address] [place] [address] Helio Erendira BLOOD Negative Normal NEGATIVE [facility] Comment on above: Performed By: #### D CHEMA UAMIC #### [facility] [address] [place] [address] Helio Erendira CAST NONE SEEN Normal NONE SEEN [facility] Comment on above: Performed By: #### Roque BEAR UAMIC #### [facility] [address] [place] [address] Helio Erendira Clarity (U) CLEAR Normal [facility] Comment on above: Performed By: #### Roque BEAR UAMIC #### [facility] [address] [place] [address] Helio Erendira Color (U) LT. YELLOW Normal YELLOW [facility] Comment on above: Performed By: #### Roque BEAR UAMIC #### [facility] [address] [place] [address] Helio Erendira Crystals LM Nom (Urine sed) NONE SEEN Normal NONE SEEN [facility] Comment on above: Performed By: #### Roque BEAR UAMIC #### [facility] [address] [place] [address] Helio Erendira Epithelial cells LM.HPF (Urine sed) [#/Area] RARE Normal [facility] Comment on above: Performed By: #### Roque BEAR UAMIC #### [facility] [address] [place] [address] Helio Erendira Glucose [Mass/Vol] Negative Normal NEGATIVE [facility] Comment on above: Performed By: #### D CHEMA, UAMIC #### [facility] [address] [place] [address] Helio Erendira Ketones Ql (U) Negative Normal NEGATIVE [facility] Comment on above: Performed By: #### D CHEMA, UAMIC #### [facility] [address] [place], [place] [phone] Helio Erendira MUCOUS NONE SEEN Normal NONE SEEN [facility] Comment on above: Performed By: #### D CHEMA, UAMIC #### [facility] [address] [place] [address] Helio Erendira Nitrite Ql (U) Negative Normal NEGATIVE [facility] Comment on above: Performed By: #### D CHEMA, UAMIC #### [facility] [address] [place] [address] Helio Erendira pH (Bld) 7.0 Normal 5-9 [facility] Comment on above: Performed By: #### D CHEMA, UAMIC #### [facility] [address] [place] [address] Helio Erendira Protein [Mass/Vol] Negative Normal [facility] Comment on above: Performed By: #### D CHEMA, UAMIC #### [facility] [address] [place], [place] [phone] Helio Erendira RBC (Bld) [#/Vol] NONE SEEN Normal 0-2 [facility] Comment on above: Performed By: #### D CHEMA, UAMIC #### [facility] [address] [place] [address] Helio Erendira SPEC GRAVITY 1.010 Normal 1.005-<=1.025 [facility] Comment on above: Performed By: #### D CHEMA, UAMIC #### [facility] [address] [place] [address] Helio Erendira Urobilinogen Qn (U) 0.2 EU/dl Normal [facility] [place] [facility] Comment on above: Performed By: #### D CHEMA, UAMIC #### [facility] [address], [place] [address] Helio Erendira WBC (Bld) [#/Vol] SMALL Normal NEGATIVE [facility] Comment on above: Performed By: #### D CHEMA UAMIC #### [facility] [address], [place] [address] Helio Erendira WBC (Bld) [#/Vol] 2-5 Normal NONE SEEN [facility] Comment on above: Performed By: #### D CHEMA UAMIC #### [facility] [address], [place] [address] Helio Erendira US PREG <14 WKSon 11-05-2019 US PREG <14 WKS Patient: SANGEETHA MELGOZA Exam Date: 11/05/2019 : 1995 Gender:F Ordering : DR. RAMONA JIMÉNEZ . Admission #: [id number] Family : Order #: [id number] CLICK HERE TO VIEW EXAM RADIOLOGY REPORT [...] M.D. on 11/06/2019 at 14:27 Normal [facility] ABO AND RH TYPEon 10-28-2019 ABO and Rh group Nom (Bld) ABO Rh Typing A Rh Positive Normal [facility] Comment on above: Performed By: #### A BORH #### [facility] [address], [place] [address] Helio Krishna PREG QUANT HCGon 10-28-2019 HCG QUANT 15507.00 mIU/mL Normal [facility] Comment on above: Result Comment: Mary Elleni fied by dilution Performed By: #### P REGQNT #### [facility] [address] [id number] Helio Krishna HCG RANGE SEE BELOW Normal [facility] Comment on above: Result Comment: 5-50 0-1 WEEK 40-300 1-2 WEEKS 100-1,000 2-3 WEEKS 500-6,000 3-4 WEEKS 5,000-200,000 1-2 MONTHS 10,000-100,000 2-3 MONTHS 3,000-50,000 2ND TRIMESTER 1,000-50,000 3RD TRIMESTER Performed By: #### P REGQNT #### [facility] [address] [id number] Helio Krishna Vital Signs Date Time Vital Sign Value Performing Clinician Facility 05-04-2025 08:57-0400 Body mass index (BMI) [Ratio] 34.17 kg/m2 Sarita ROBERTO Work Phone: [facility] 05-04-2025 08:57-0400 Body weight 84.73 kg Sarita ROBERTO Work Phone: [facility] 05-04-2025 08:57-0400 Diastolic blood pressure 70 mm[Hg] Sarita ROBERTO Work Phone: [facility] 05-04-2025 08:57-0400 Systolic blood pressure 120 mm[Hg] Sarita Ballard PA Work Phone: [facility] 04-06-2025 10:46-0400 Body mass index (BMI) [Ratio] 32.7 kg/m2 Sarita ROBERTO Work Phone: [facility] 04-06-2025 10:46-0400 Body weight 81.1 kg Sarita ROBERTO Work Phone: [facility] 04-06-2025 10:46-0400 Diastolic blood pressure 70 mm[Hg] Sarita ROBERTO Work Phone: [facility] 04-06-2025 10:46-0400 Systolic blood pressure 110 mm[Hg] Sarita ROBERTO Work Phone: [facility] 03-03-2025 10:24-0400 Body mass index (BMI) [Ratio] 32.58 kg/m2 Monico Bethany DO Work Phone: [facility] 03-03-2025 10:24-0400 Body weight 80.8 kg Monico Bethany DO Work Phone: [facility] 03-03-2025 10:24-0400 Diastolic blood pressure 64 mm[Hg] Monico Bethany DO Work Phone: [facility] 03-03-2025 10:24-0400 Systolic blood pressure 112 mm[Hg] Monico Bethany DO Work Phone: [facility] 02-13-2025 10:16-0400 Body height 157.5 cm N[facility] Nurse [facility] 02-13-2025 09:52-0400 Body mass index (BMI) [Ratio] 31.64 kg/m2 Nom Nurse [facility] 02-13-2025 09:52-0400 Body weight 78.47 kg Noms Nurse [facility] 02-13-2025 09:52-0400 Diastolic blood pressure 80 mm[Hg] Nom Nurse [facility] 02-13-2025 09:52-0400 Systolic blood pressure 126 mm[Hg] [facility] Nurse [facility] 09-13-2024 18:18-0500 Body temperature 97.9 [degF] Evangelist Jenkins MD Work Phone: [employer] [facility] 09-13-2024 18:18-0500 Diastolic blood pressure 65 mm[Hg] Evangelist Jenkins MD [facility]: [facility] 09-13-2024 18:18-0500 Systolic blood pressure 122 mm[Hg] Evangelist Jenkins MD Work Phone: [employer] [facility] 09-13-2024 18:17-0500 Body mass index (BMI) [Ratio] 32.92 kg/m2 Evangelist Jenkins MD Work Phone: [employer] 09-13-2024 18:17-0500 Body weight 81.65 kg Evangelist Jenkins [facility] 09-13-2024 18:17-0500 Heart rate 78 /min Evangelist Jenkins MD [facility] 09-13-2024 18:17-0500 Respiratory rate 16 /min Evangelist Jenkins MD [facility] 09-13-2024 18:17-0500 SaO2% (BldA) [Mass fraction] 98 % Evangelist Jenkins MD [facility] 06-10-2024 09:10-0400 Body weight 84.73 kg Monico Bethany DO Work Phone: [facility] 06-10-2024 09:10-0400 Diastolic blood pressure 64 mm[Hg] Monico Bethany DO Work Phone: [facility] 06-10-2024 09:10-0400 Systolic blood pressure 102 mm[Hg] Monico Bethany DO Work Phone: [facility] 06-03-2024 10:10-0400 Body weight 84.73 kg Sarita ROBERTO Work Phone: [facility] 06-03-2024 10:10-0400 Diastolic blood pressure 64 mm[Hg] Sarita ROBERTO Work Phone: [facility] 06-03-2024 10:10-0400 Systolic blood pressure 110 mm[Hg] Sarita ROBERTO Work Phone: [facility] 05-27-2024 10:47-0400 Body weight 85 kg Monico Bethany DO Work Phone: [facility] 05-27-2024 10:47-0400 Diastolic blood pressure 60 mm[Hg] Monico Bethany DO Work Phone: [facility] 05-27-2024 10:47-0400 Systolic blood pressure 114 mm[Hg] Monico Bethany DO Work Phone: [facility] 05-13-2024 08:40-0400 Body weight 83.46 kg Sarita ROBERTO Work Phone: [facility] 05-13-2024 08:40-0400 Diastolic blood pressure 74 mm[Hg] Sarita ROBERTO Work Phone: [facility] 05-13-2024 08:40-0400 Systolic blood pressure 122 mm[Hg] Sarita ROBERTO Work Phone: [facility] 09-25-2023 13:12-0500 Body height 157.5 cm [facility] 09-25-2023 13:12-0500 Body mass index (BMI) [Ratio] 28.72 kg/m2 [facility] 09-25-2023 13:12-0500 Body weight 71.22 kg [facility] 09-25-2023 13:12-0500 Diastolic blood pressure 86 mm[Hg] [facility] 09-25-2023 13:12-0500 Systolic blood pressure 116 mm[Hg] [facility] Encounters Encounter Date Encounter Type Care Provider Facility Start: 05-04-2025 End: 05-04-2025 Office outpatient visit 15 minutes Sarita ROBERTO Work Phone: [facility] Comment on above: 24 weeks gestation o f ([facility]); Second trimester ([facility]); Diabetes mellitus screening Start: 05-04-2025 End: 05-04-2025 ambulatory SARITA BALLARD Not Available Start: 04-06-2025 End: 04-06-2025 Office outpatient visit 15 minutes Sarita ROBERTO Work Phone: [facility] Comment on above: Second trimester pre gnancy ([facility]); 20 weeks gestation of ([facility]) Start: 04-06-2025 End: 04-06-2025 ambulatory SARITA ELIO Not Available Start: 04-06-2025 End: 04-06-2025 ambulatory MONICO BETHANY Not Available Start: 03-03-2025 End: 03-03-2025 Bamboo flowsheet Monico Bethany DO Work Phone: [facility] Start: 03-03-2025 End: 03-05-2025 Bamboo flowsheet Monico Bethany DO Work Phone: [facility] Start: 03-03-2025 End: 03-05-2025 Clinisync Result Encounter Monico Bethany DO Work Phone: [facility] Unsolicited Start: 03-03-2025 End: 03-03-2025 flow sheet Monico Bethany DO Work Phone: [facility] Comment on above: 15 weeks gestation o f ([facility]); Second trimester fetus ([facility]); Screening, , for anatomic survey ([facility]) Start: 03-03-2025 End: 03-03-2025 ambulatory MONICO BETHANY Not Available Start: 03-02-2025 End: 03-02-2025 Clinisync Result Encounter Monico Bethany DO Work Phone: [facility] Unsolicited Start: 03-02-2025 End: 03-02-2025 Clinisync Result Encounter Monico Bethany DO Work Phone: [facility] Unsolicited Start: 02-13-2025 End: 02-13-2025 Office outpatient visit [...] Unsolicited Start: 01-14-2025 End: 01-14-2025 [facility]ulatory [facility] Start: 01-14-2025 End: 01-14-2025 Subsequent hospital visit by physician Sarita Bedoya [employer] Work Phone: [facility] Start: 09-13-2024 End: 09-13-2024 Emergency department patient visit Evangelist Jenkins MD Work Phone: [facility] Comment on above: Laceration [...] 05-13-2024 ambulatory SARITA BALLARD Not Available Start: 01-28-2024 End: 01-28-2024 Telephone encounter Sarita Salomon RDMS, RVT [facility] Start: 09-25-2023 End: 09-25-2023 ambulatory SARITA Costello [facility] Start: 09-25-2023 End: 09-25-2023 Office outpatient new 30 minutes [facility] Special Delivery Clerk [facility] [place] Comment on above: Encounter for IUD re moval (Primary Dx) Start: 05-21-2023 End: 05-21-2023 Subsequent hospital visit by physician Sarita Bedoya [employer] Work Phone: [facility] Start: 04-25-2023 ambulatory Sarita Emmanuel Cleempu t [employer] DRAFTER-CUSTOMER CARE SPECIALIST Facility:[facility] Start: 04-16-2023 End: 04-17-2023 ambulatory Sarita Basurtoemproselyn [employer]-CUSTOMER CARE SPECIALIST Facility:[facility] Start: 03-08-2023 End: 03-09-2023 ambulatory Sarita Basurtoemproselyn [employer]-CUSTOMER CARE SPECIALIST Facility:[facility] Start: 05-25-2020 End: 05-26-2020 Evaluation and management [...] JIMÉNEZ Facility:[facility] Start: 05-16-2016 End: 05-16-2016 Ambulatory [facility] Facility:[facility] Procedures Date Procedure Procedure Detail Performing Clinician Start: 05-04-2025 Urnls dip stick/tabl et rgnt non-auto w/o micrscp Sarita ROBERTO Work Phone: Start: 03-03-2025 AFP, SERUM, OPEN SPI NA BIFIDA Monico Bethany DO Work Phone: Start: 03-03-2025 Urnls dip stick/tabl et rgnt non-auto w/o micrscp Monico Bethany DO Work Phone: Start: 03-02-2025 BOX TEST Monico Fazi o DO Work Phone: Start: 02-13-2025 Urnls dip stick/tabl et rgnt non-auto w/o micrscp Monico Bethany DO Work Phone: Start: 01-14-2025 ALL HCG, QUANTITATIVE C orefarida Danielsono DO Work Phone: Start: 01-14-2025 Gonadotropin chorion [...] 05-21-2023 Toxin/antitoxin assa y tissue culture Sarita Costello Aureliano [employer] Work Phone: Start: 05-26-2020 Delivery of Products [...] Td Vaccines (3 - Td or Tdap) [facility] Start: 09-23-2032 DTaP/Tdap/Td vaccine (3 - Td or Tdap) DTaP/Tdap/Td vaccine (3 - Td or Tdap) [facility] Start: 06-01-2025 End: 06-01-2025 Patient encounter procedure 06/01/2025 10:20 AM EDT Routine [facility] [address] [place] [id number] Monico Sims DO [address] [place] [address] [facility] [place] [facility] Start: 05-04-2025 End: 05-04-2026 CBC panel - Blood by Automated count CBC Lab Routine Diabetes mellitus screening Expected: 05/04/2025 (Approximate), Expires: 05/04/2026 [facility] Work Phone: Comment on above: Expected: 05/04/2025 (Approximate), Expires: 05/04/2026 Start: 05-04-2025 End: 05-04-2026 Measurement of glucose 1 hour after glucose challenge for glucose tolerance test Glucose tolerance, 1 hour Lab Routine Diabetes mellitus screening Expected: 05/04/2025 (Approximate), Expires: 05/04/2026 [facility] Comment on above: Expected: 05/04/2025 (Approximate), Expires: 05/04/2026 Start: 05-04-2025 End: 05-04-2025 Patient encounter procedure 05/04/2025 10:40 AM EDT Routine [facility] [address] [place] [id number] Sarita Ballard PA [address] [place] [address] [facility] Start: 04-17-2025 Influenza vaccination Flu vacc ine (Season Ended) [facility] Start: 04-06-2025 End: 04-06-2025 Patient encounter procedure 04/06/2025 10:30 AM EDT Routine [facility] [address] [place] [id number] Sarita Ballard, PA [address] [place] [address] [facility] Start: 04-06-2025 End: 04-06-2025 Professional / ancillary services management 04/06/2025 9:30 AM EDT Ancillary Procedure [facility] [address] [place] [id number] [facility] Start: 03-03-2025 End: 06-03-2025 Alpha fetoprotein, maternal Alpha fetoprotein, maternal Lab Routine 15 weeks gestation of ([facility]) Second trimester fetus ([facility]) Expected: 03/03/2025 (Approximate), Expires: 06/03/2025 [facility] Work Phone: Comment on above: Expected: 03/03/2025 (Approximate), Expires: 06/03/2025 Start: 03-03-2025 End: 06-03-2025 US for US OB 14+ weeks anatomy scan Imaging Routine Screening, , for anatomic survey ([facility]) Expected: 03/03/2025, Expires: 06/03/2025 [facility] Comment on above: Expected: 03/03/2025 , Expires: 06/03/2025 Start: 03-03-2025 End: 03-03-2025 Patient encounter procedure [facility] Comment on above: Arrived Start: 02-13-2025 End: 02-13-2026 ABO/Rh ABO/Rh Lab Routine Missed menses , unspecified gestational age Expected: 02/13/2025 (Approximate), Expires: 02/13/2026 [facility] Comment on above: Expected: 02/13/2025 (Approximate), Expires: 02/13/2026 Start: 02-13-2025 End: 02-13-2026 Blood type and Indirect antibody screen panel - Blood Type and screen Lab Routine Missed menses , unspecified gestational age Expected: 02/13/2025 (Approximate), Expires: 02/13/2026 [facility] Comment on above: Expected: 02/13/2025 (Approximate), Expires: 02/13/2026 Start: 02-13-2025 End: 02-13-2026 Drugs of abuse panel - Urine by Screen method Rapid drug screen, urine Lab Routine , unspecified gestational age Encounter for supervision of normal first in first trimester Expected: 02/13/2025 (Approximate), Expires: 02/13/2026 [facility] Comment on above: Expected: 02/13/2025 (Approximate), Expires: 02/13/2026 Start: 02-05-2025 End: 05-08-2025 US Pelvis transvaginal US OB transvaginal Imaging Routine Missed menses Expected: 02/05/2025, Expires: 05/08/2025 [facility] Work Phone: Comment on above: Expected: 02/05/2025 , Expires: 05/08/2025 Start: 09-25-2024 Adult BMI Screening Adult BMI Screen ing [facility] Start: 09-25-2024 Tobacco Screening Tobacco Screening [facility] Start: 06-10-2024 End: 06-10-2024 Patient encounter procedure [...] ( season) COVID-19 Vaccine ( season) [facility] Start: 05-18-2024 COVID-19 Vaccine ( season) COVID-19 Vaccine () [facility] Start: 05-18-2024 Influenza vaccination Influenza Vacc [facility] Start: 05-13-2024 End: 05-13-2025 US for US OB SCAN FOR GROWTH Imaging Routine size inconsistent with dates Expected: 05/13/2024 (Approximate), Expires: 05/13/2025 [facility] Work Phone: Comment on above: Expected: 05/13/2024 (Approximate), Expires: 05/13/2025 Start: 05-13-2024 End: 05-13-2024 Patient encounter procedure 05/13/2024 8:50 AM EDT Routine [facility] [address] [place] [address] Sarita Ballard PA [address] [place], [place] [id number] Arrived [facility] Comment on above: Arrived Start: 04-17-2024 Influenza vaccination Flu vaccine (# 1) [facility] Start: 05-18-2023 Influenza vaccination Influenza Vacc ine [facility] Start: 04-17-2023 Influenza vaccination Flu vaccine (# 1) [facility] Start: 12-04-2016 Screening for malign ant neoplasm of cervix Pap smear [facility] Start: 12-04-2014 Hepatitis B vaccine (1 of 3 - 19+ 3-dose series) Hepatitis B vaccine (1 of 3 - + 3-dose series) [facility] Start: 12-04-2013 Adult BMI Follow Up Plan Adult BMI Follow Up Plan [facility] Start: 12-04-2013 Hepatitis C screening Hepatitis C sc reen [facility] Start: 12-04-2010 HIV screening HIV screen [facility] Start: 12-04-2008 Varicella vaccine (1 of 2 - 13+ 2-dose series) Varicella vaccine (1 of 2 - 13+ 2-dose series) [facility] Start: 2007 Depression Screen Depression Screen [facility] Start: 2007 Depression Screening Depression Scre ening [facility] Start: 12-04-1996 Varicella vaccine (1 of 2 - 2-dose childhood series) Varicella vaccine (1 of 2 - 2-dose childhood series) [facility] Start: 06-06-1996 COVID-19 Vaccine (#1) COVID-19 Vacci ne (#1) [facility] Bacteria identified in Urine by Culture Urine culture Microbiology Routine Missed menses Ordered: 02/13/2025 [facility] Comment on above: Ordered: 02/13/2025 CBC W Auto Different ial panel - Blood CBC and differential Lab Routine Missed menses , unspecified gestational age Ordered: 02/13/2025 [facility] Comment on above: Ordered: 02/13/2025 End: 05-21-2023 Gastrointestinal Panel, Molecular [facility] Work Phone: Comment on above: Once for 1 Occurrenc es starting 05/21/2023 until 05/21/2023 Hemoglobin A1c/Hemoglobin.total in Blood Hemoglobin A1c Lab Routine Missed menses , unspecified gestational age Ordered: 02/13/2025 [facility] Comment on above: Ordered: 02/13/2025 Hepatitis B virus de la rosa rface Ag [Presence] in Serum or Plasma by Immunoassay Hepatitis B surface antigen Lab Routine Missed menses , unspecified gestational age Ordered: 02/13/2025 [facility] Comment on above: Ordered: 02/13/2025 Hepatitis C virus Ab [Presence] in Serum or Plasma by Immunoassay Hepatitis C antibody Lab Routine Missed menses , unspecified gestational age Ordered: 02/13/2025 [facility] Comment on above: Ordered: 02/13/2025 HIV-1/HIV-2 antigen/antibody combination immunoassay HIV-1 and HIV-2 antibodies Lab Routine Missed menses , unspecified gestational age Ordered: 02/13/2025 [facility] Comment on above: Ordered: 02/13/2025 End: 05-21-2023 O&P PANEL (TRAVEL ASSOCIATED) #1 [facility] Comment on above: Once for 1 Occurrenc es starting 05/21/2023 until 05/21/2023 Reagin Ab [Presence] in Serum by RPR RPR Lab Routine Missed menses , unspecified gestational age Ordered: 02/13/2025 [facility] Comment on above: Ordered: 02/13/2025 Rubella antibody, IgG Rubella an tibody, IgG Lab Routine Missed menses , unspecified gestational age Ordered: 02/13/2025 [facility] Comment on above: Ordered: 02/13/2025 US Pelvis transvaginal US OB tra nsvaginal Imaging Routine Missed menses 02/13/2025 9:51 AM EDT [facility] Immunizations Immunization Date Immunization Notes Care Provider Fa perty 09-23-2022 tetanus toxoid, redu angelina diphtheria toxoid, and acellular pertussis vaccine, adsorbed [facility] Special Delivery Clerk [facility] Payers Date Payer Category Payer Medicaid [employer] [facility] [id number] 2023-Present [address] [place] [id number] 2023 Medicaid (Managed Care) [facility] [place] [id number] 2020 Unknown 2016 Private Health Insurance [id number] 1995 Unknown [id number] 2.16.840.1.212057.3.579.2. 593 1995 Unknown [id number] 2.16.840.1.306413.3.579.2. 593 1995 Unknown [id number] 2.16.840.1.917864.3.579.2. 593 1995 Unknown [id number] 2.16.840.1.763711.3.579.2. 593 1995 Unknown [id number] 2.16.840.1.102479.3.579.2. 593 1995 Unknown [id number] 2.16.840.1.729947.3.579.2. 593 1995 Unknown [id number] 2.16.840.1.060832.3.579.2. 593 1995 Unknown [id number] 2.16.840.1.284705.3.579.2. 593 1995 Unknown [id number] 2.16.840.1.485710.3.579.2. 593 1995 Unknown [id number] 2.16.840.1.148040.3.579.2. 593 1995 Unknown [id number] 2.16.840.1.216416.3.579.2. 593 1995 Unknown [id number] 2.16.840.1.172831.3.579.2. 196 1995 Unknown [id number] 2.16.840.1.813758.3.579.2. 196 1995 Unknown [id number] 2.16.840.1.678783.3.579.2. 196 1995 Unknown [id number] 2.16.840.1.874223.3.579.2. 196 1995 Unknown [id number] 2.16.840.1.291903.3.579.2. 1286 1995 Unknown [id number] 2.16.840.1.236356.3.579.2. 173 1995 Unknown [id number] 2.16.840.1.949043.3.579.2. 173 1995 Unknown [id number] 2.16.840.1.187376.3.579.2. 1259 1995 Unknown [id number] 2.16.840.1.735619.3.579.2. 1259 1995 Unknown [id number] 2.16840.1.635727.3.579.2. 1259 1995 Unknown [id number] 2.16840.1.708155.3.579.2. 1259 1995 Unknown [id number] 2.16840.1.201530.3.579.2. 1259 1995 Unknown [id number] 2.16.840.1.232214.3.579.2. 9 1995 Unknown [id number] 2.16840.1.126058.3.579.2. 1259 1995 Unknown [id number] 2.16840.1.342658.3.579.2. 9 1995 Unknown [id number] 2.16840.1.480178.3.579.2. 1259 1995 Unknown [id number] 2.16840.1.940458.3.579.2. 1259 1995 Unknown [id number] 2.16840.1.241822.3.579.2. 1259 1959 Unknown [id number] Social History Date Type Detail Facility Start: 09-23-2022 End: 04-16-2023 Tobacco smoking status DEIS Never smoked tobacco [facility] Start: 09-23-2022 End: 04-16-2023 Tobacco use and exposure Smokeless tobacco non-user [facility] [employer] [facility] Start: 1995 Sex Assigned At Not on file [facility] Tobacco smoking status NHIS Tobacco smoking consumption unknown [facility] Start: 10-02-2023 [facility] Start: 09-23-2022 End: 04-16-2023 Gender identity Not on file [facility] Start: 09-23-2022 End: 04-16-2023 History of Social function [facility], Retired: Physical Abuse Denies [facility] [employer] [facility] Start: 09-25-2023 Alcohol intake Ex-drinker (finding) [facility]in Lern[employer] im Leben [facility] Start: 04-28-2019 Sex Female (finding) [facility] Clinical Notes 09-25-2023 to 05-04-2025 PARDEEP Joaquin - 05/04/2025 9:20 AM PARDEEP Campo - 04/06/2025 10:40 AM Richard Martinez LPN - 03/03/2025 9:50 AM Yari Montague MA - 02/13/2025 10:00 AM EDTDischarge InstructionsAttachments Note Date & Type Note Facility 05-04-2025 History of Presen t illness Narrative Reason for Appointment: Patient ID: Sangeetha Melgoza is a 29 y.o. female who presents for Routine Visit Patient presents today for Return OB appointment. MEDICATIONS Current Outpatient Medications Medication Instructions Vit-Fe Fumarate-FA ( VITAMIN PO) Take by mouth ALLERGIES Allergies Allergen Reactions Latex Hives Morphine Cortisone Rash PROBLEMS Active Ambulatory Problems Diagnosis Date Noted Missed menses 12/11/2023 15 weeks gestation of ([facility]) 03/03/2025 Second trimester fetus ([facility]) 03/03/2025 Resolved Ambulatory Problems Diagnosis Date Noted No [...] normal. Vitals and nursing note reviewed. Vitals: Estimated body mass index is 34.17 kg/m as calculated from the following: Height as of 02/13/25: 5' 2 . Weight as of this encounter: 186 lb 12.8 oz. BP: 120/70 Patient's last menstrual period was 11/12/2024. ASSESSMENT & PLAN ICD-10-CM 1. 24 weeks gestation of ([facility]) Z3A.24 POCT urinalysis dipstick manually resulted 2. Second trimester ([facility]) Z34.92 POCT urinalysis dipstick manually resulted 3. Diabetes mellitus screening Z13.1 CBC Glucose tolerance, 1 hour CBC Glucose tolerance, 1 hour Return OB: Patient presents today for a routine obstetrics appointment. Patient is currently 24w5d . Patient states she is doing well but has complaints of being tired due to current . Patient has verbalizes frequent movement. Orders Placed This Encounter Procedures CBC Glucose tolerance, 1 hour POCT urinalysis dipstick manually resulted Follow Up: Patient is to return to office in 4 week for routine OB appointment. Documented by PARDEEP Joaquin on behalf of: PARDEEP Joaquin documented in this encounter [facility] 07-21-2025 History of Presen t illness Narrative Reason for Appointment: Patient ID: Sangeetha Melgoza is a 29 y.o. female who presents for Routine Visit Patient presents today for Return OB appointment. MEDICATIONS Current Outpatient Medications Medication Instructions Vit-Fe Fumarate-FA ( VITAMIN PO) Oral ALLERGIES Allergies Allergen Reactions Latex Hives Morphine Cortisone Rash PROBLEMS Active Ambulatory Problems Diagnosis Date Noted Missed menses 12/11/2023 15 weeks gestation of ([facility]) 03/03/2025 Second trimester fetus ([facility]) 03/03/2025 Resolved Ambulatory Problems Diagnosis Date Noted No [...] normal. Vitals and nursing note reviewed. Vitals: Estimated body mass index is 32.7 kg/m as calculated from the following: Height as of 25: 5' 2 . Weight as of this encounter: 178 lb 12.8 oz. BP: 110/70 No LMP recorded (lmp unknown). Patient is . ASSESSMENT & PLAN ICD-10-CM 1. Second trimester ([facility]) Z34.92 2. 20 weeks gestation of ([facility]) Z3A.20 Return OB: Patient presents today for a routine obstetrics appointment. Patient is currently 20w5d . Patient states she is doing well but has complaints of being tired due to current . Patient has verbalizes frequent movement. No orders of the defined types were placed in this encounter. Patient will be referred to m for possible amniotic band found on US today Follow Up: Patient is to return to office in 4 week for routine OB appointment. Documented by PARDEEP Joaquin on behalf of: PARDEEP Joaquin documented in this encounter [facility] 03-03-2025 History of Presen t illness Narrative Reason for Appointment: Patient ID: Sangeetha Melgoza is a 29 y.o. female who presents for Routine Visit Patient presents today for Return OB appointment. MEDICATIONS Current Outpatient Medications Medication Instructions iron polysaccharides (PROFE) 391.3 mg, Oral, Daily Vit-Fe Fumarate-FA ( VITAMIN PO) Oral ALLERGIES Allergies Allergen Reactions Latex Hives Cortisone Rash PROBLEMS Active Ambulatory Problems Diagnosis Date Noted Missed menses 12/11/2023 15 weeks gestation of ([facility]) 03/03/2025 Second trimester fetus ([facility]) 03/03/2025 Resolved Ambulatory Problems Diagnosis Date Noted No [...] Constitutional: Appearance: Normal appearance. She is well-developed. Cardiovascular: Rate and Rhythm: Normal rate and [...] nursing note reviewed. Exam conducted with a senior behavioral scientist present. Vitals: Estimated body mass index is 32.58 kg/m as calculated from the following: Height as of 02/13/25: 5' 2 . Weight as of this encounter: 178 lb 1.9 oz. BP: 112/64 No LMP recorded (lmp unknown). Patient is . ASSESSMENT & PLAN ICD-10-CM 1. 15 weeks gestation of ([facility]) Z3A.15 Alpha fetoprotein, maternal Alpha fetoprotein, maternal POCT urinalysis dipstick manually resulted 2. Second trimester fetus ([facility] Z34.92 Alpha fetoprotein, maternal Alpha fetoprotein, maternal POCT urinalysis dipstick manually resulted New OB: Patient presents today for 1st time obstetrics appointment with provider. Patient is currently 15w6d . Patients history has been reviewed in great detail including any potential risks. Patient stated she currently has no complaints. Expectations throughout regarding labs, ultrasounds, and appointments have been discussed with the patient in detail. It was reiterated that the patient is to drink 6-8 glasses of water a day, eat 6 small meals a day, do not consume raw or undercooked meat, and stay away from [facility]. Patient has been consulted regarding any further do's and don'ts of . Patient voiced understanding and all questions and concerns were answered. Pt given anatomy scan order to have obtained between 20-22 weeks. Pt given 6 hour work day restrictions starting now until delivery Orders Placed This Encounter Procedures Alpha fetoprotein, maternal POCT urinalysis dipstick manually resulted Follow Up: Patient is to return in 4 weeks for routine OB appointment. Documented by Erendira Martinez LPN on behalf of: Monico Sims DO documented in this encounter [facility] 02-13-2025 History of Presen t illness Narrative [...] or undercooked meat, and stay away from [facility]. Patient has also been advised to [...] Rosana Montague MA documented in this encounter [facility] 09-13-2024 [facility] Discharg e Evangelist Tapia MD - 09/13/2024 7:07 PM EST Go [...] be sent through Care Everywhere.Hand Laceration: Stitches (Burkinan)documented in this encounter [facility] 06-10-2024 History of Presen t illness Narrative [...] nursing note reviewed. Exam conducted with a senior behavioral scientist present. Vitals: There is no height or [...] Monico Sims DO documented in this encounter [facility] 06-03-2024 History of Presen t illness Narrative [...] Documented by PARDEEP Joaquin on behalf of: PADREEP Joaquin documented in this encounter [facility] 05-27-2024 History of Presen t illness Narrative [...] nursing note reviewed. Exam conducted with a senior behavioral scientist present. Vitals: There is no height or [...] Monico Sims DO documented in this encounter [facility] 05-13-2024 History of Presen t illness Narrative [...] of: PARDEEP Joaquin documented in this encounter [facility] 01-28-2024 Miscellaneous Notes Called and spoke to nurse Jacqueline in Dr. Sims's office regarding order sent to [facility]. Order for EFW percentile at 6th percentile on ultrasound done at [facility]. Explained that they used 06/17/24 as the VANGIE on that ultrasound instead of the document VANGIE of 06/24/24. Office called [facility] and they are recalculating the report and sending an addendum. Order can be disregarded. documented in this encounter [facility] [employer] 01-28-2024 Telephone encounter Note Called and spoke to nurse Jacqueline in Dr. Sims's office regarding order sent to [facility]. Order for EFW percentile at 6th percentile on ultrasound done at [facility]. Explained that they used 06/17/24 as the VANGIE on that ultrasound instead of the document VANGIE of 06/24/24. Office called [facility] and they are recalculating the report and sending an addendum. Order can be disregarded. [facility] 09-25-2023 History of Presen t illness Narrative [...] APRN-CNP 09/25/23 1344 documented in this encounter [facility] Evaluation note Diagnosis Third trimester state, incidental [facility] Diagnosis Third trimester state, incidental size inconsistent with dates documented in this encounter [facility]* Diagnosis 36 weeks gestation of Third trimester state, incidental documented in this encounter [facility]* Diagnosis Third trimester state, incidental [facility]* Diagnosis Laceration of left middle finger without foreign body without damage to nail, initial encounter- Primary [facility] Encounter for IUD removal- Primary [facility] Diagnosis Missed menses , unspecified gestational age Encounter for supervision of normal first in first trimester [facility] Diagnosis 15 weeks gestation of ([facility]) Second trimester fetus ([facility]) Screening, , for anatomic survey ([facility]) Encounter for anatomic survey [facility] Diagnosis Second trimester ([facility]) state, incidental 20 weeks gestation of ([facility]) [facility] Diagnosis 24 weeks gestation of ([facility]) Second trimester ([facility]) state, incidental Diabetes mellitus screening Screening for diabetes mellitus documented [facility]* Attachments The following attachments cannot be sent through Care Everywhere. * How to plan and prepare for a healthy (Burkinan) [facility] SystemInstructionsNot on file documented in [facility] Summary Purpose Family History No [...] section and content) DATE CREATED AUTHOR 03/13/2018 [facility] DATE CREATED AUTHOR AUTHOR'S ORGANIZ ATION 06/02/2020 [facility] DATE CREATED AUTHOR AUTHOR'S ORGANIZ ATION 04/26/2023 [facility] DATE CREATED AUTHOR AUTHOR'S ORGANIZ ATION 09/30/2023 [facility] DATE CREATED AUTHOR AUTHOR'S ORGANIZ ATION 01/15/2025 [facility] DATE CREATED AUTHOR AUTHOR'S ORGANIZ ATION 05/06/2025 [facility] EPIC Care Teams (unrecognized sec tion and content) Critical Power Technician Relationship Specialty Start Date End Date Sarita Bedoya APRN - CNS [address] [place] [address] PCP - General Certified Clinical Nurse Specialist 04/16/23 Critical Power Technician Relationship Specialty Start Date End Date Sarita Bedoya APRN - CNS [address] [place] [address] PCP - General Certified Clinical Nurse Specialist 04/16/23 Critical Power Technician Relationship Specialty Start Date End Date Sarita Bedoya, CASTINGS DRAFTER-CUSTOMER CARE SPECIALIST [address] [facility], [address] [address] PCP - General Nurse Practitioner 05/05/21 Critical Power Technician Relationship Specialty Start Date End Date Sarita Bedoya, CASTINGS DRAFTER-[facility] [address] [facility], [address] [place] [address] PCP - General Nurse Practitioner 05/05/21 Critical Power Technician Relationship Specialty Start Date End Date Sarita Bedoya, CASTINGS DRAFTER - MICA PASTER [address] [place] [address] PCP - General Certified Clinical Nurse Specialist [...] BE BASED ON THE PRIMARY CLINICAL RECORDS. [facility]. provides no warranty or guarantee of the accuracy or completeness of information in this document.
[2025-05-07 08:01] LABS: Hematocrit 29.8 % (36.0-48.0); Hemoglobin 9.5 g/dL (12.0-16.0); Immature Granulocytes Abs Auto 0.08 10^3/uL (0.00-0.03); Immature Granulocytes Pct Auto 0.8 % (0.0-0.5); Lymphocytes Absolute Auto 1.2 10^3/uL (1.2-3.8); Mean Corpuscular HGB Conc 31.9 g/dL (29.9-35.2); Mean Corpuscular Hemoglobin 25.2 pg (26.7-34.0); Mean Corpuscular Volume 79.0 fL (81.0-99.0); Platelet Count 177 10^3/uL (150-450); Red Blood Count 3.77 10^6/uL (4.20-5.40); White Blood Count 9.4 10^3/uL (4.0-11.0)
[2025-05-07 09:05] LABS: Glucose 1 Hour 105 mg/dL (<130)
== END 2025-05-07 06:35 | disposition home or self-care (01) ==
LOC: LAB 06:36
PROVIDERS: Visit Provider Physician Assistant
DX: Z13.1 Encounter for screening for diabetes mellitus (principal)
CPT/HCPCS: 36415; 82950; 85025

== ENCOUNTER 2025-06-01 08:03 | Outpatient (OUT) | payer OTHER, SELFPAY ==
--- OUTSIDE RECORDS SUMMARY | 2025-06-01 08:15 | XMS_ITS | CCD ---
Author Organization [facility] Care Team Providers Care Patient Support Partner Name Role Phone Alvaro Uptonamber Almendarez Unavailable [...] RAMONA JIMÉNEZ Procedure Practitioner Unavailab le [place] EMERGENCY DOCTOR-LANGUAGE ARTS TEACHER, Sarita Emmanuel Primary Care Unavai lable [place] EMERGENCY DOCTOR-LANGUAGE ARTS TEACHER, Sarita Emmanuel Attending Unavai lable [place] EMERGENCY DOCTOR-LANGUAGE ARTS TEACHER, Sarita Emmanuel Attending Unavai lable [place] EMERGENCY DOCTOR-LANGUAGE ARTS TEACHER, Sarita Emmanuel Primary Care Unavai lable [place] EMERGENCY DOCTOR-LANGUAGE ARTS TEACHER, Sarita Emmanuel Referring Jayy Roach MD, Demetrice Portillo Attending Unavailable [place] EMERGENCY DOCTOR-LANGUAGE ARTS TEACHER, Sarita Emmanuel Primary Care Unavai lable [place] EMERGENCY DOCTOR-LANGUAGE ARTS TEACHERSarita Primary Care Unavai lable [place] EMERGENCY DOCTOR-CHRISTOPHER, Sarita Emmanuel Attending Isabelvaeladia lable [place]put KIESHA - ESTHER, Sarita Costello Primary Care Provider SARITA BEDOYA Referring Unavailable CLEEMPROSELYN, SARITA Costello Primary Care Unavailable Unavailable Primary Care Provider Unavailabl e [place] EMERGENCY DOCTOR - WINDOWS ADMIN, Sarita Costello Primary Care Provider [place] EMERGENCY DOCTOR-LANGUAGE ARTS TEACHER, Sarita Costello Primary Care Provider SARITA BEDOYA Primary Care Unavailable MONICO SIMS Referring Unavailable CLEEMPUT, SARITA Costello Primary Care Unavailable EVANGELIST JENKINS Attending Unavailable BETHANY, MONICO Attending Unavailable ELIO, SARITA Attending Unavailable ELIO, SARITA Attending Unavailable ELIO, SARITA Attending Unavailable BETHANY, MONICO Attending Unavailable ELIO, SARITA Attending Unavailable BETHANY, MONICO Attending Unavailable Allergies Allergy Classification Reported Allergen(s) Allergy Type Date of Onset Reaction(s) Facility (1 source) Adhesive agent Drug allergy (disorder) [facility] Repository (2 sources) Latex; Translations: [LATEX] Drug allergy (disorder) 3 [facility] Repository (1 source) morphine Drug Allergy [facility] Repository (1 source) Latex Drug allergy (disorder) 0 [facility] Repository (5 sources) Latex Propensity to adverse reactions to drug 3 [facility] (3 sources) Hydrocortisone; Translations: [HYDROCORTISONE] Drug Allergy 3 [facility] Repository (20 sources) Cortisone Drug Allergy 4 Rash [facility] Healthcare Work Phone: (20 sources) Latex Propensity to adverse reactions [address] [facility] Work Phone: (7 sources) Morphine Drug Allergy 4 [facility] Medications Current Medications Medication Drug Class(es) Dates [...] capsule Indications: Anemia affecting in second trimester ([facility]) Take 1 capsule (391.3 mg) by [...] Class(es) Dates Sig (Normalized) Sig (Original) levonorgestrel 0.920850 mg/hr intrauterine system (1 source) Progestin, Progestin-containi [...] specified screening] 03-03-2025 Episodic Residual codes; unclassified (10 sources) Gestation period, 15 weeks; Translations: [15 [...] Test Name Value Interpretation Reference Range Facility ALL CBC WITH AUTO DIFFon BASOPHILS ABSOLUTE AUTO 0.1 [facility] Basophils/100 WBC (Bld) 0.5 % 0.2 - 2.0 % [facility] Eosinophils/100 WBC (Bld) 1.6 % 0.9 - 7.0 % [facility] Erythrocyte distribution width (RBC) [Ratio] 14 % 11.0 - 15.0 % [facility] Hematocrit (Bld) [Volume fraction] 29.8 % Low 36.0 - 48.0 % [facility] Hem[facility] (Bld) [Mass/Vol] 9.5 g/dL Low 12.0 - 16.0 g/dL [facility] IMMATURE GRANULOCYTES ABS AUTO 0.08 High [facility] Immature granulocytes/100 WBC (Bld) 0.8 % High 0.0 - 0.5 % [facility] Interpretation and review of laboratory results Abnormal [facility] LYMPHOCYTES ABSOLUTE AUTO 1.2 [facility] Lymphocytes/100 WBC (Bld) 12.6 % Low 20.5 - 60.0 % [facility] MCH (RBC) [Entitic mass] 25.2 pg Low 26.7 - 34.0 pg [facility] MCHC (RBC) [Mass/Vol] 31.9 g/dL 29.9 - 35.2 g/dL [facility] MCV (RBC) [Entitic vol] 79 fL Low 81.0 - 99.0 fL [facility] MONOCYTES ABSOLUTE AUTO 0.7 [facility] Monocytes/100 WBC (Bld) 7.7 % 1.7 - 12.0 % [facility] Healthcare NEUTROPHILS ABSOLUTE AUTO 7.2 High [facility] Healthcare Neutrophils/100 WBC (Bld) 76.8 % High 43.0 - 75.0 % [facility] Platelet mean volume (Bld) [Entitic vol] 10.8 fL 9.5 - 13.5 fL [facility] EO # 0.2 [facility] PLT 177 [facility] RBC 3.77 Low [facility] WBC 9.4 [facility] US OB LIMITED 1+ FETUSESon 0 05-04-2025 [...] II, MD, PHD at 05-May-2025 07:59:10 AM [facility] Normal Not Available Comment on above: Order Comment: US OB INCOMPLETE ANATOMY Estimated Date of Delivery: 08/19/25 Gestational Age as of 04/13/2025: 21w5d Urinalysis macro (dipstick) panel (U)on 05-04-2025 Bilirubin, UA Negative Negative - 4(70) +++ mg/dL [facility] Blood, UA Negative Negative - 50 Haseeb/mcL [facility] Clarity, UA Clear [facility] re Color, UA Straw [facility] Glucose, UA Negative Negative - 2000(110) ++++ mg/dL [facility] Interpretation and review of laboratory results Abnormal [facility] Ketones, UA Negative Negative - 160(16) ++++ mg/dL [facility] Leukocytes, UA Negative Negative - 500+++ Ronaldo/mcL [facility] Nitrite, UA Negative Negative - Positive [facility] pH, UA 6 5 - 9 [facility] Health[facility] e Protein, UA Positive Negative - 1999(20) ++++ mg/dL [facility] Spec Grav, UA 1.03 1 - 1.03 [facility] Urobilinogen, UA 1.0 0.2 - 12 mg/dL [facility] US OB 14+ WEEKS ANATOMY [...] II, MD, PHD at 07-Apr-2025 07:25:13 AM [facility] Normal Not Available Comment on above: Order Comment: US OB ANATOMY SINGLE W US OB CERVICAL LENGTH Estimated Date of Delivery: 08/19/25 Gestational Age as of 03/03/2025: 15w6d AFP, SERUM, OPEN SPINA BIFID Aon 03-05-2025 AFP MOM 1.27 . [facility] AFP VALUE 37.2 ng/mL . [facility] COMMENT: Comment . [facility] Healthcar e Comment on above: Crystal Mancilla , Ph.D., [facility] Director References: Available Upon Request. Multiples Of Median Cutoffs For AFP Elevations Colbert 2.5 Black 2.8 IDD 2.0 Twins 4.5 Abbreviation Definitions IDD - Insulin Dep Diabetes OSBR - Open Spina Bifida Risk For further inquiries contact [facility] at [phone]. This test was developed and its performance characteristics determined by [facility]. It has not been cleared or approved by the Food and Drug Administration. Performed at: [facility] [address] [id number] Rn Admissions: Nickolas Flynn [facility], Phone: [phone] GEST. AGE ON COLLECTION DATE 15.9 . weeks [facility] GESTAT. AGE BASED ON Ultrasound . [facility] Comment on above: 15.9 on 03/03/2025 Recalculations are not recommended when gestational dating by LMP and ultrasound are within 10 days. INSULIN DEP DIABETES No . [facility] Healthcare INTERPRETATION Comment . [facility] Healt hcare Comment on above: Interpretation: [...] Customer Services to discuss available options. The [employer] recommends amniocentesis be offered to women age 35 and older. [age] [facility] MULTIPLE GESTATION No . [facility] H ealthcare OSBR RISK 1 IN 5250 . [facility] Healt hcare RACE . [facility] Nintex e RESULTS Report . [facility] ContactMonkey[facility] e TEST RESULTS: Negative . [facility] WEIGHT 178 . lbs [facility] Healthcar e N N ULTRASOUND [id number] [phone] N 1 178 N N N N N White/ [facility] ContactMonkey[facility] e Urinalysis macro (dipstick) panel (U)on 03-03-2025 Bilirubin, UA Negative Negative - 4(70) +++ mg/dL [facility] Blood, UA Negative Negative - 50 Haseeb/mcL [facility] Clarity, UA Clear [facility] re Color, UA Yellow [facility] Nintex e Glucose, UA Negative Negative - 1999(110) ++++ mg/dL [facility] Interpretation and review of laboratory results Abnormal [facility] Ketones, UA Negative Negative - 160(16) ++++ mg/dL [facility] Leukocytes, UA Negative Negative - 500+++ Ronaldo/mcL [facility] Nitrite, UA Negative Negative - Positive [facility] pH, UA 7.5 5 - 9 [facility] Nintex e Protein, UA Trace Negative - 1999(20) ++++ mg/dL [facility] Spec Grav, UA 1.02 1 - 1.03 [facility] Urobilinogen, UA 0.2 0.2 - 12 mg/dL [facility] [employer] e BOX TESTon 03-02-2025 BOX TEST SENT OUT [facility] althcare BOX1 [facility] [employer] e BOX2 03/02/25 [facility] Nintex e UNITY BOX [facility] Nintex e HCG ( test) Ql (U)o n 02-13-2025 Interpretation and review of laboratory results Abnormal [facility] Preg Test, Ur Positive Negative [facility] No Panel Informationon 02-13 [facility] [employer] [facility] US OB TRANSVAGINALon 02-13-2 025 US OB TRANSVAGINAL EXAM: US OB [...] II, MD, PHD at 16-Feb-2025 10:22:48 AM [facility] Normal Not Available Comment on above: Order Comment: US OB TRANSVAGINAL No LMP recorded. Urinalysis macro (dipstick) panel (U)on 02-13-2025 Bilirubin, UA Negative Negative - 4(70) +++ mg/dL [facility] Blood, UA Negative Negative - 50 Haseeb/mcL [facility] Clarity, UA Clear [facility] Color, UA Yellow [facility] e Glucose, UA Negative Negative - 1999(110) ++++ mg/dL [facility] Interpretation and review of laboratory results Normal [facility] Ketones, UA Negative Negative - 160(16) ++++ mg/dL [facility] Leukocytes, UA Negative Negative - 500+++ Ronaldo/mcL [facility] Nitrite, UA Negative Negative - Positive [facility] pH, UA 7 5 - 9 [facility] e Protein, UA Negative Negative - 1999(20) ++++ mg/dL [facility] Spec Grav, UA 1.025 1 - 1.03 [facility] Urobilinogen, UA 0.2 0.2 - 12 mg/dL [facility] ALL HCG, QUANTITATIVEon 04-3 Interpretation and review of laboratory results Abnormal [facility] MHPT HCG, QUANT [id number] High [facility] thcare Comment on above: Non-preg premeno <=5 Postmeno <=8 Male <=3 If HCG results do not concur with clinical observations, additional testing to confirm results is recommended. Original Ordering Provider: MONICO MURRAY [facility] HCG, Quanton 01-14-2025 HCG, Quant 408178.0 mIU/mL High 0-7 [facility] Comment on above: Result Comment: Non-preg premeno <=5 Postmeno <=8 Male <=3 If HCG results do not concur with clinical observations, additional testing to confirm results is recommended. Performed By: #### B HCG #### [facility] [address] [place], [place] [id number] Rn Admissions: Frankie Sen MD HCG, Quantitative, on 01-14-2025 HCG.beta subunit Qn [id number] m[IU]/mL High [facility] Comment on above: Non-preg premeno <=5 Postmeno <=8 Male <=3 If HCG results do not concur with clinical observations, additional testing to confirm results is recommended. Interpretation and review of laboratory results Abnormal [facility] XR FINGER LEFT (MIN 2 [...] Koffi Ortez MD 09/13/24 Final result Normal [facility] XR Finger - left 2 Viewson 1 11-14-2023 No acute osseous abnormality. [facility] CONSOLIDATED EXAMINATION: THREE XRAY VIEWS OF THE LEFT FINGERS 09/13/2024 6:42 pm COMPARISON: None. HISTORY: ORDERING SYSTEM PROVIDED HISTORY: lac TECHNOLOGIST PROVIDED HISTORY: lac Specify which digit to image->Third FINDINGS: Bone: No acute fracture. Mineralization: Normal bone mineralization. Joint: No dislocation. No significant degenerative changes. Soft tissues: Unremarkable. [facility] Koffi Capellan MD - 09/13/2024 EXAMINATION: THREE XRAY VIEWS OF THE LEFT FINGERS 09/13/2024 6:42 pm COMPARISON: None. HISTORY: ORDERING SYSTEM PROVIDED HISTORY: lac TECHNOLOGIST PROVIDED HISTORY: lac Specify which digit to image->Third FINDINGS: Bone: No acute fracture. Mineralization: Normal bone mineralization. Joint: No dislocation. No significant degenerative changes. Soft tissues: Unremarkable. IMPRESSION: No acute osseous abnormality. [facility] Radiology Study observation (narrative) [facility] XR Finger - left 2 ViewsOrde red By: Koffi Ortez on 09-13-2024 [facility] Work Phone: ALL CBC WITH AUTO DIFFon BASOPHILS ABSOLUTE AUTO 0.0 [facility] Basophils/100 WBC (Bld) 0.2 % 0.2 - 2.0 % [facility] Eosinophils/100 WBC (Bld) 0.8 % Low 0.9 - 7.0 % [facility] Erythrocyte distribution width (RBC) [Ratio] 13.2 % 11.0 - 15.0 % [facility] Hematocrit (Bld) [Volume fraction] 25.7 % Low 36.0 - 48.0 % [facility] Hemoglobin (Bld) [Mass/Vol] 8.3 g/dL Low 12.0 - 16.0 g/dL [facility] IMMATURE GRANULOCYTES ABS AUTO 0.09 High [facility] Immature granulocytes/100 WBC (Bld) 0.7 % High 0.0 - 0.5 % [facility] Interpretation and review of laboratory results Abnormal [facility] LYMPHOCYTES ABSOLUTE AUTO 1.4 [facility] Lymphocytes/100 WBC (Bld) 11.5 % Low 20.5 - 60.0 % [facility] MCH (RBC) [Entitic mass] 25.5 pg Low 26.7 - 34.0 pg [facility] MCHC (RBC) [Mass/Vol] 32.3 g/dL 29.9 - 35.2 g/dL [facility] MCV (RBC) [Entitic vol] 78.8 fL Low 81.0 - 99.0 fL [facility] MONOCYTES ABSOLUTE AUTO 0.9 High [facility] Monocytes/100 WBC (Bld) 7.2 % 1.7 - 12.0 % [facility] NEUTROPHILS ABSOLUTE AUTO 9.7 High [facility] Neutrophils/100 WBC (Bld) 79.6 % High 43.0 - 75.0 % [facility] Platelet mean volume (Bld) [Entitic vol] 10.8 fL 9.5 - 13.5 fL [facility] are [facility] EO # 0.1 [facility] e TB PLT 162 [facility] e [facility] RBC 3.26 Low [facility] e [facility] WBC 12.2 High [facility] e [facility] CBC WITH PLATELET NO DI FFERENTIALon 06-17-2024 Erythrocyte distribution width (RBC) [Ratio] 13.0 % 11.0 - 15.0 % [facility] Hematocrit (Bld) [Volume fraction] 28.1 % Low 36.0 - 48.0 % [facility] e Hemoglobin (Bld) [Mass/Vol] 9.2 g/dL Low 12.0 - 16.0 g/dL [facility] Interpretation and review of laboratory results Abnormal [facility] MCH (RBC) [Entitic mass] 25.5 pg Low 26.7 - 34.0 pg [facility] MCHC (RBC) [Mass/Vol] 32.7 g/dL 29.9 - 35.2 g/dL [facility] MCV (RBC) [Entitic vol] 77.8 fL Low 81.0 - 99.0 fL [facility] Platelet mean volume (Bld) [Entitic vol] 11.0 fL 9.5 - 13.5 fL [facility] are [facility] PLT 170 [facility] RBC 3.61 Low [facility] e TB WBC 8.4 [facility] e Urinalysis macro (dipstick) panel (U)on 06-10-2024 Bilirubin, UA Negative Negative - 4(70) +++ mg/dL [facility] Blood, UA Negative Negative - 50 Haseeb/mcL [facility] Clarity, UA Clear [facility] re Color, UA Yellow [facility] e Glucose, UA Negative Negative - 2000(110) ++++ mg/dL [facility] Interpretation and review of laboratory results Abnormal [facility] Ketones, UA Positive Negative - 160(16) ++++ mg/dL [facility] Healthcare Leukocytes, UA Positive Negative - 500+++ Ronaldo/mcL [facility] Healthcare Nitrite, UA Negative Negative - Positive [facility] Healthcare pH, UA 6.5 5 - 9 [facility] Protein, UA Negative Negative - 1999(20) ++++ mg/dL [facility] Healthcare Spec Grav, UA 1.025 1 - 1.03 [facility] care Urobilinogen, UA 1.0 0.2 - 12 mg/dL [facility] Urinalysis macro (dipstick) panel (U)on 06-03-2024 Bilirubin, UA Negative Negative - 4(70) +++ mg/dL [facility] Blood, UA Negative Negative - 50 Haseeb/mcL [facility] Healthcare Clarity, UA Clear [facility] re Color, UA Yellow [facility] Glucose, UA Negative Negative - 1999(110) ++++ mg/dL [facility] Interpretation and review of laboratory results Abnormal [facility] Ketones, UA Positive Negative - 160(16) ++++ mg/dL [facility] Leukocytes, UA Positive Negative - 500+++ Ronaldo/mcL [facility] Healthcare Nitrite, UA Negative Negative - Positive [facility] pH, UA 5.5 5 - 9 [facility] Healthcar e Protein, UA Positive Negative - 1999(20) ++++ mg/dL [facility] Spec Grav, UA 1.025 1 - 1.03 [facility] care Urobilinogen, UA 1.0 0.2 - 12 mg/dL [facility] Urinalysis macro (dipstick) panel (U)on 05-27-2024 Bilirubin, UA Negative Negative - 4(70) +++ mg/dL [facility] Blood, UA Negative Negative - 50 Haseeb/mcL [facility] Healthcare Clarity, UA Clear [facility] re Color, UA Yellow [facility] Glucose, UA Negative Negative - 1999(110) ++++ mg/dL [facility] Interpretation and review of laboratory results Abnormal [facility] Ketones, UA Negative Negative - 160(16) ++++ mg/dL [facility] Leukocytes, UA Positive Negative - 500+++ Ronaldo/mcL [facility] Healthcare Comment on above: small Nitrite, UA Negative Negative - Positive [facility] pH, UA 8.5 5 - 9 [facility] Protein, UA Negative Negative - 1999(20) ++++ mg/dL [facility] Spec Grav, UA 1.020 1 - 1.03 [facility] Urobilinogen, UA 0.2 0.2 - 12 mg/dL [facility] Urinalysis macro (dipstick) panel (U)on 05-13-2024 Bilirubin, UA Negative Negative - 4(70) +++ mg/dL [facility] Blood, UA Negative Negative - 50 Haseeb/mcL [facility] Clarity, UA Clear [facility] re Color, UA Yellow [facility] e Glucose, UA Negative Negative - 1999(110) ++++ mg/dL [facility] Interpretation and review of laboratory results Abnormal [facility] Ketones, UA Negative Negative - 160(16) ++++ mg/dL [facility] Leukocytes, UA Trace Negative - 500+++ Ronaldo/mcL [facility] Nitrite, UA Negative Negative - Positive [facility] pH, UA 8.5 5 - 9 [facility] Protein, UA Trace Negative - 1999(20) ++++ mg/dL [facility] Spec Grav, UA 1.020 1 - 1.03 [facility] Urobilinogen, UA 0.2 0.2 - 12 mg/dL [facility] Clostridium Difficile Toxin/ Antigenon 05-21-2023 C. difficile glutamate dehydrogenase and toxins A+B IA.rapid Ql (Stl) Negative NEGATIVE [facility] Comment on above: No C. 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 Migraines try imitrex if EKG is normal f/u in 1 month EKG normal Ordered: EKG Orders: SUMAtriptan, 1 tabs, Oral, Daily, PRN, may repeat dose after 2 hours up to a maximum of 200 mg in 24 hours, X 30 days, # 9 tabs, 0 Refill(s), 04/07/23 9:10:00 EDT, Pharmacy: [facility] [id number] Medical Decision Making Chronic conditions NOT treated [...] by Aureliano LEPESarita 03/08/23 11:43 EDT Normal [facility] CBC AUTO DIFFon 05-25-2020 Basophils (Bld) [#/Vol] 0.0 103/ul Normal 0.0-0.1 [facility] Comment on above: Performed By: #### C BC ####[facility] [address] [place], [place] [address]Brsgtl [place] Basophils/100 WBC (Bld) 0.3 % Normal 0.2-2.0 [facility] Comment on above: Performed By: #### C BC ####[facility] [address] [place], [place] [address]Ljrmee [place] Eosinophils (Bld) [#/Vol] 0.1 103/ul Normal 0.0-0.7 [facility] Comment on above: Performed By: #### C BC ####[facility] [address] [place] [id number] [place] Eosinophils/100 WBC (Bld) 1.2 % Normal 0.9-7.0 [facility] Comment on above: Performed By: #### C BC ####[facility] [address] [place], [place] [address]Hxrgdm [place] Erythrocyte distribution width (RBC) [Ratio] 14.1 % Normal 11.0-15.0 [facility] Comment on above: Performed By: #### C BC ####[facility] [address] [place] [id number] [place] Hematocrit (Bld) [Volume fraction] 32.9 % Critically low 36.0-48.0 [facility] Comment on above: Performed By: #### C BC ####[facility] [address] [place] [id number] [place] Hemoglobin (Bld) [Mass/Vol] 11.2 g/dL Critically low 12.0-16.0 [facility] Comment on above: Performed By: #### C BC ####[facility] [address] [place] IG # 0.09 10e3/ul Critically high 0.00-0.03 [facility] Comment on above: Performed By: #### C BC ####[facility] X[address] [place] IG % 0.9 % Critically high 0.0-0.5 [facility] Comment on above: Performed By: #### C BC ####[facility] [address] [place] Lymphocytes (Bld) [#/Vol] 1.3 103/ul Normal 1.2-3.8 [facility] Comment on above: Performed By: #### C BC ####[facility] [address]uge[address] [place] Lymphocytes/100 WBC (Bld) 13.1 % Critically low 20.5-60.0 [facility] Comment on above: Performed By: #### C BC ####[facility] [address] [place] [address] [place] MANUAL DIFF REQ NO Normal [facility] Comment on above: Performed By: #### C BC ####[facility] N[address]liunto[address] [place] MCH (RBC) [Entitic mass] 29.6 pg Normal 26.7-34.0 [facility] Comment on above: Performed By: #### C BC ####[facility] [address] [place] MCHC (RBC) [Mass/Vol] 34.0 g/dL Normal 29.9-35.2 [facility] Comment on above: Performed By: #### C BC ####[facility] Jcfictywsa4238 [address] [place] MCV (RBC) [Entitic vol] 87.0 fL Normal 81.0-99.0 [facility] Comment on above: Performed By: #### C BC ####[facility] Xpcnqwlotm9604 [place] [id number] [place] Monocytes (Bld) [#/Vol] 0.9 103/ul Critically high 0.3-0.8 [facility] Comment on above: Performed By: #### C BC ####[facility] Tygnm[address] [place], [place] [id number] [place] Monocytes/100 WBC (Bld) 9.1 % Normal 1.7-12.0 [facility] Comment on above: Performed By: #### C BC ####[facility] B[address] [place] [address] [place] Neutrophils (Bld) [#/Vol] 7.6 103/ul Critically high 1.4-6.5 [facility] Comment on above: Performed By: #### C BC ####[facility] Ulysefq[address] [place], [place] [phone] [place] Neutrophils/100 WBC (Bld) 75.4 % Critically high 43.0-75.0 [facility] Comment on above: Performed By: #### C BC ####[facility] [address] [place] [address] [place] Platelet mean volume (Bld) [Entitic vol] 10.1 fL Normal 9.5-13.5 [facility] Comment on above: Performed By: #### C BC ####[facility] Mcycbiygbm[address] [place], [place] [phone] [place] Platelets (Bld) [#/Vol] 200 103/ul Normal 150-450 [facility] Comment on above: Performed By: #### C BC ####[facility] Y[address]iv[address] [place], [place] [address]Gerken [place] RBC (Bld) [#/Vol] 3.78 106/ul Critically low 4.20-5.40 [facility] Comment on above: Performed By: #### C BC ####[facility] I[address] [place], [place] [address] E[place] WBC (Bld) [#/Vol] 10.1 103/ul Normal 4.0-11.0 [facility] Comment on above: Performed By: #### C BC ####[facility] Zkrhigoqmc0030 [address] DRUG SCREEN RAPID (URINE)on 05-25-2020 AMP Negative Normal NEGATIVE [facility] Comment on above: Performed By: #### D RUGRPD ####[facility] Rwmxpnimna8222 [address] BAR Negative Normal NEGATIVE [facility] Comment on above: Performed By: #### D RUGRPD ####[facility] Bgbeulixng[address] [place] [address] BUP Negative Normal NEGATIVE [facility] Comment on above: Performed By: #### D RUGRPD ####[facility] Xqbxrivxzo[address] [place] [address] BZO Negative Normal NEGATIVE [facility] Comment on above: Performed By: #### D RUGRPD ####[facility] Jcouyzfojq[address] [place] [address] JAYLA Negative Normal NEGATIVE [facility] Comment on above: Performed By: #### D RUGRPD ####[facility] Fvyrd[address]qix[address] [place] [address] CUT-OFFS SEE BELOW Normal [facility] Comment on above: Result Comment: AMP [...] Antidepressants): 300 ng/mL Performed By: #### Roque ALVAREZRPD ####[facility] Lwpeerbhmj9797 [address] [place] DRUG CUT HEADER DRUG CLASS TEST SYSTEM CUT-OFF CONCENTRATIONS ARE FOLLOWS: Normal [facility] Comment on above: Performed By: #### Roque KANGD ####[facility] Clrxlciryq4394 [place] [phone] [place] mAMP Negative Normal NEGATIVE [facility] Comment on above: Performed By: #### Roque RUGRPD ####[facility] Stcanbgtyr3235 [place] [phone] [place] MTD Negative Normal NEGATIVE [facility] Comment on above: Performed By: #### Roque ALVAREZRPD ####[facility] Sxkmhlrfac0996 [address] [place] OPI Negative Normal NEGATIVE [facility] Comment on above: Performed By: #### Roque KANGD ####[facility] Tsbsgvxipi0419 [address] [place] OXY Negative Normal NEGATIVE [facility] Comment on above: Performed By: #### Roque KANGD ####[facility] Duisgrvmql4082 [address] [place] PCP Negative Normal NEGATIVE [facility] Comment on above: Performed By: #### Roque KANGD ####[facility] Ynmbhknzsb6173 [address] [place] PPX Negative Normal NEGATIVE [facility] Comment on above: Performed By: #### Roque ALVAREZRPD ####[facility] Lfzvpyyyen2726 [address] [place] TCA Negative Normal NEGATIVE [facility] Comment on above: Performed By: #### Roque ALVAREZRPD ####[facility] Ookqmzfrjc8198 [address] [place] THC Negative Normal NEGATIVE [facility] Comment on above: Performed By: #### Roque KANGD ####[facility] Bczvrcudiy9323 [address] [place] TYPE AND SCREENon 05-25-2020 TYPE AND SCREEN Negative Normal [facility] Comment on above: Performed By: #### T NS ####[facility] Sntmacyxyp6764 [address] [place] COVID-19 PCRon 05-20-2020 SARS-CoV-2, EMILE Not Detected Normal Not Detected [facility] Comment on above: Result Comment: This nucleic acid amplification test was developed and its perfomance characteristics determined by [employer]. Nucleic acid amplification tests include PCR and [...] this assay. Performed By: #### C VDPCR ####[facility] Uoibvevnzt4045 [address] CHLAMYDIA/GONOCOCCUS EMILE (SW AB/URINE/PAPon 05-06-2020 Chlamydia trachomatis, EMILE Negative Normal Negative [facility] Comment on above: Performed By: #### C T/NGNA ####[facility] Dgsrukckvd0262 [address] Neisseria gonorrhoeae, EMILE Negative Normal Negative [facility] Comment on above: Performed By: #### C T/NGNA ####[facility] Qkrsvbdryw8340 [address] GROUP B STREP CULTUREon 04-17 S. agalactiae Ag Ql (Unsp spec) Culture Observations: Negative for Group B Streptococcus Normal [facility] Comment on above: Performed By: #### G BSCX ####[facility] X[address]qay[address] [place] [address] [place] CBC AUTO DIFFon 03-04-2020 Basophils (Bld) [#/Vol] 0.0 103/ul Normal 0.0-0.1 [facility] Comment on above: Performed By: #### C BC ####[facility] [address] [place] [address] [place] Basophils/100 WBC (Bld) 0.4 % Normal 0.2-2.0 [facility] Comment on above: Performed By: #### C BC ####[facility] Rkejbgzvqt[address] [place] [address] [place] Eosinophils (Bld) [#/Vol] 0.1 103/ul Normal 0.0-0.7 [facility] Comment on above: Performed By: #### C BC ####[facility] I[address]rmwcqf[address] [place] [address] [place] Eosinophils/100 WBC (Bld) 1.0 % Normal 0.9-7.0 [facility] Comment on above: Performed By: #### C BC ####[facility] Mcborwif[address] [place] [address] [place] Erythrocyte distribution width (RBC) [Ratio] 13.1 % Normal 11.0-15.0 [facility] Comment on above: Performed By: #### C BC ####[facility] Rvjdaz[address] [place] [address] [place] Hematocrit (Bld) [Volume fraction] 34.5 % Critically low 36.0-48.0 [facility] Comment on above: Performed By: #### C BC ####[facility] Ndnyummgx[address] [place] [address] [place] Hemoglobin (Bld) [Mass/Vol] 11.6 g/dL Critically low 12.0-16.0 [facility] Comment on above: Performed By: #### C BC ####[facility] Apqqjxacyl2140 [place], [place] [address]Rmjwdz [place] IG # 0.09 10e3/ul Critically high 0.00-0.03 [facility] Comment on above: Performed By: #### C BC ####[facility] Ghebttwmrs9696 [place], [place] [address]Dnnuvi [place] IG % 0.9 % Critically high 0.0-0.5 [facility] Comment on above: Performed By: #### C BC ####[facility] Zitxiqkagy7244 [place], [place] [address]Xuyjgk [place] Lymphocytes (Bld) [#/Vol] 1.2 103/ul Normal 1.2-3.8 [facility] Comment on above: Performed By: #### C BC ####[facility] T[address] [place], [place] [address]Gerken [place] Lymphocytes/100 WBC (Bld) 12.1 % Critically low 20.5-60.0 [facility] Comment on above: Performed By: #### C BC ####[facility] Kiczybrzrt1054 [place] [phone] MANUAL DIFF REQ NO Normal [facility] Comment on above: Performed By: #### C BC ####[facility] Ggcfumsfji9015 [place] [phone] [place] MCH (RBC) [Entitic mass] 30.7 pg Normal 26.7-34.0 [facility] Comment on above: Performed By: #### C BC ####[facility] Incvkknhxo8840 [place] [phone] [place] MCHC (RBC) [Mass/Vol] 33.6 g/dL Normal 29.9-35.2 [facility] Comment on above: Performed By: #### C BC ####[facility] Fl[address]qh[address] [place], [place] [address]Gerken [place] MCV (RBC) [Entitic vol] 91.3 fL Normal 81.0-99.0 [facility] Comment on above: Performed By: #### C BC ####[facility] Knrfsushau8644 [place], [place] [address]Atfvtd [place] Monocytes (Bld) [#/Vol] 0.7 103/ul Normal 0.3-0.8 [facility] Comment on above: Performed By: #### C BC ####[facility] Mhieaikkqb3990 [place], [place] [address]Ksvmcb [place] Monocytes/100 WBC (Bld) 6.8 % Normal 1.7-12.0 [facility] Comment on above: Performed By: #### C BC ####[facility] [address]usr[address] [place] [address]Spl[address] [place] Neutrophils (Bld) [#/Vol] 7.8 103/ul Critically high 1.4-6.5 [facility] Comment on above: Performed By: #### C BC ####[facility] Q[address]hbvpmn[address] [place] [address]Bllccq [place] Neutrophils/100 WBC (Bld) 78.8 % Critically high 43.0-75.0 [facility] Comment on above: Performed By: #### C BC ####[facility] Srdnognwdb[address] [place] [address]Ka[address] [place] Platelet mean volume (Bld) [Entitic vol] 10.0 fL Normal 9.5-13.5 [facility] Comment on above: Performed By: #### C BC ####[facility] [address]qtuzbf[address] [place] [address]Hqllcj [place] Platelets (Bld) [#/Vol] 163 103/ul Normal 150-450 [facility] Comment on above: Performed By: #### C BC ####[facility] Emmmfuzcwp1513 [place], [place] [address]Sowyby [place] RBC (Bld) [#/Vol] 3.78 106/ul Critically low 4.20-5.40 Th [facility] Comment on above: Performed By: #### C BC ####[facility] F[address]batsh[address] [place] [address]Ygorpv [place] WBC (Bld) [#/Vol] 9.9 103/ul Normal 4.0-11.0 [facility] Comment on above: Performed By: #### C BC ####[facility] Sbbmnhiuht3502 [address] [place] GLUCOSE - 1HRon 03-04-2020 Glucose [Mass/Vol] 121 mg/dL Critically high 74-106 T [facility] Comment on above: Performed By: #### G LU1HR ####[facility] Ujnnxivjaa4876 [address] CHLAMYDIA/GONOCOCCUS EMILE (SW AB/URINE/PAPon 01-28-2020 Chlamydia trachomatis, EMILE Negative Normal Negative [facility] Comment on above: Performed By: #### C T/NGNA ####[facility] Aeudfeglur7299 [address] Neisseria gonorrhoeae, EMILE Negative Normal Negative [facility] Comment on above: Performed By: #### C T/NGNA ####[facility] Llwjmzahmb6012 [address] TRICHAMONAS VAGINALIS. NAAon 01-28-2020 Trich vag by EMILE Negative Normal Negative [facility] Comment on above: Performed By: #### T RICHNA ####[facility] Qwrus[address] [place] [address] US PREG ANATOMY SINGLEon US PREG ANATOMY [...] by: LINDA CAICEDO Date: 2020-01-09 14:28 Normal [facility] PAP ACOG PANEL 3: 21 to 29on 12-30-2019 Age Gdln ACOG Testing 21- Normal [facility] Comment on above: Performed By: #### A ROMY #### [facility] [address] [place], [place] [address] Helio Krishna Chlamydia, Nuc. Acid Amp Positive Abnormal Negative [facility] Comment on above: Result Comment: . Performed at: =G Performed By: #### A ROMY #### [facility] [address] [place], [place] [address] Helio Krishna DIAGNOSIS: Comment Normal [facility] Comment on above: Result Comment: NEGA TIVE FOR INTRAEPITHELIAL LESION OR MALIGNANCY. THIS SPECIMEN WAS RESCREENED PART OF OUR WASHER HAND PROGRAM. Performed at: WB Performed By: #### A ROMY #### [facility] [address] [place] [address] Helio Krishna Gonococcus, Nuc. Acid Amp Negative Normal Negative [facility] Comment on above: Result Comment: Perf ormed at: =G Performed By: #### A ROMY #### [facility] [address] [place] [address] Helio Krishna Methodology: Comment Normal [facility] Comment on above: Result Comment: This liquid based ThinPrep(R) pap test was screened with the use of an image guided system. Performed at: WB Performed By: #### A ROMY #### [facility] [address] [place] [address] Helio Krishna Note: Comment Normal [facility] Comment on above: Result Comment: The [...] WB Performed By: #### A ROMY #### [facility] [address] [place] [address] Helio Krishna Performed by: Comment Normal [facility] Comment on above: Result Comment: Cindy Taylor, Blueprinting And Photocopy Supervisor (ASCP) Performed at: WB Performed By: #### A ROMY #### [facility] [address] [place] [address] Helio Krishna QC reviewed by: Comment Normal [facility] Comment on above: Result Comment: Shoshana Stevens, Supervisory Blueprinting And Photocopy Supervisor (ASCP) Performed at: WB Performed By: #### A ROMY #### [facility] [address] [place] [address] Helio [place] Reflex Criteria: Comment Normal [facility] Comment on above: Result Comment: The HPV DNA reflex criteria were not met with this specimen result therefore, no HPV testing was performed. . Performed at: WB Performed By: #### A ROMY #### [facility] [address] [place] [address] Helio Erendira Specimen adequacy: Comment Normal [facility] Comment on above: Result Comment: Sati sfactory for evaluation. Endocervical and/or squamous metaplastic cells (endocervical component) are present. Performed at: WB Performed By: #### A ROMY #### [facility] [address] [place] [address] Helio Erendira . . Normal [facility] Comment on above: Result Comment: Perf ormed at: WB Performed By: #### A ROMY #### [facility] [address] [place] [address] Helio Erendira HGB(ELECTP) FRACTION PROFILE on 11-24-2019 Hemoglobin (Bld) [Mass/Vol] 97.3 % Normal 96.4-98.8 [facility] Comment on above: Performed By: #### A ROMY #### [facility] [address] [place] [address] Helio Erendira Hgb A2 2.7 % Normal 1.8-3.2 [facility] Comment on above: Performed By: #### A ROMY #### [facility] [address] [place] [address] Helio Erendira Hgb C 0.0 % Normal 0.0 [facility] Comment on above: Performed By: #### A ROMY #### [facility] [address] [place] [address] Helio Erendira Hgb F 0.0 % Normal 0.0-2.0 [facility] Comment on above: Performed By: #### A ROMY #### [facility] [address] [place] [address] Helio Erendira Hgb S 0.0 % Normal 0.0 [facility] Comment on above: Performed By: #### A ROMY #### [facility] [address] [place] [address] Helio Erendira Hgb Solubility Negative Normal Negative [facility] Comment on above: Performed By: #### A ROMY #### [facility] [address] [place] [address] Helio Krishna Hgb Variant Normal [facility] Comment on above: Performed By: #### A ROMY #### [facility] [address] [place] [address] Helio Krishna Interpretation Comment Normal [facility] Comment on above: Result Comment: Norm al adult hemoglobin present. Performed By: #### A ROMY #### [facility] [address] [place] [address] Helio Krishna HEP B SURFACE ANTIGEN SCREEN on 11-22-2019 HBsAg Screen Negative Normal Negative [facility] Comment on above: Performed By: #### A ROMY #### [facility] [address] [place] [address] Helio Krishna HEPATITIIS C VIRUS ANTIBODYo n 11-22-2019 Hep C Virus Ab <0.1 Normal 0.0-0.9 [facility] Comment on above: Result Comment: Nega tive: < 0.8 Indeterminate: 0.8 - 0.9 Positive: > 0.9 . The CDC recommends that a positive HCV antibody result be followed up with a HCV Nucleic Acid Amplification test (864007). Performed By: #### H #### [facility] [address] [place] [address] Helio Krishna HIV 1 AND 2 WITH REFLEXon HIV Screen 4th Generation wRfx Non Reactive Normal Non Reactive [facility] Comment on above: Performed By: #### A ROMY #### [facility] [address] [place] [address] Helio Krishna RPR QUANTon 11-22-2019 Rapid Plasma Reagin, Quant Non Reactive Normal NonRea<1:1 [facility] Comment on above: Performed By: #### A ROMY #### [facility] [address] [place] [address] Helio Krishna RUBELLA AB IGGon 11-22-2019 Rubella Antibodies, IgG 1.49 index Normal Immune >0.99 [facility] Comment on above: Result Comment: Non- immune <0.90 Equivocal 0.90 - 0.99 Immune >0.99 Performed By: #### A ROMY #### [facility] [address] [place], [place] [id number] Helioari Krishna VARICELLA IGG ABon 0 Varicella Zoster IgG <135 Critically low Immune >165 [facility] Comment on above: Result Comment: Nega tive <135 Equivocal 135 - 165 Positive >165 A positive result generally indicates exposure to the pathogen or administration of specific immunoglobulins, but it is not indication of active infection or stage of disease. Performed By: #### A ROMY #### [facility] [address] [place], [place] [id number] Helio Erendira CBC AUTO DIFFon 11-21-2019 Basophils (Bld) [#/Vol] 0.0 103/ul Normal 0.0-0.1 [facility] Comment on above: Performed By: #### C BC #### [facility] [address] [place] [address] Helio Erendira Basophils/100 WBC (Bld) 0.3 % Normal 0.2-2.0 [facility] Comment on above: Performed By: #### C BC #### [facility] [address] [place] [address] Helio Erendira Eosinophils (Bld) [#/Vol] 0.1 103/ul Normal 0.0-0.7 [facility] Comment on above: Performed By: #### C BC #### [facility] [address] [place], [place] [id number] Helio Erendira Eosinophils/100 WBC (Bld) 0.8 % Critically low 0.9-7.0 [facility] Comment on above: Performed By: #### C BC #### [facility] [address] [place], [place] [id number] Helio Erendira Erythrocyte distribution width (RBC) [Ratio] 12.8 % Normal 11.0-15.0 [facility] Comment on above: Performed By: #### C BC #### [facility] [address] [place], [place] [phone] Helio Erendira Hematocrit (Bld) [Volume fraction] 36.9 % Normal 36.0-48.0 [facility] Comment on above: Performed By: #### C BC #### [facility] [address] [place] [id number] Helio Erendira Hemoglobin (Bld) [Mass/Vol] 12.7 g/dL Normal 12.0-16.0 [facility] Comment on above: Performed By: #### C BC #### [facility] [address] [place] [id number] Helio Erendira IG # 0.05 10e3/ul Critically high 0.00-0.03 [facility] Comment on above: Performed By: #### C BC #### [facility] [address] [place] [address] Helio Erendira IG % 0.6 % Critically high 0.0-0.5 [facility] Comment on above: Performed By: #### C BC #### [facility] [address] [place] [address] Helio Erendira Lymphocytes (Bld) [#/Vol] 1.2 103/ul Normal 1.2-3.8 [facility] Comment on above: Performed By: #### C BC #### [facility] [address] [place], [place] [id number] Helio Erendira Lymphocytes/100 WBC (Bld) 13.6 % Critically low 20.5-60.0 [facility] Comment on above: Performed By: #### C BC #### [facility] [address] [place], [place] [id number] Helio Erendira MANUAL DIFF REQ NO Normal [facility] Comment on above: Performed By: #### C BC #### [facility] [address] [place], [place] [id number] Helio Erendira MCH (RBC) [Entitic mass] 30.0 pg Normal 26.7-34.0 [facility] Comment on above: Performed By: #### C BC #### [facility] [address] [place], [place] [id number] Helio Erendira MCHC (RBC) [Mass/Vol] 34.4 g/dL Normal 29.9-35.2 [facility] Comment on above: Performed By: #### C BC #### [facility] [address] [place], [place] [address] Helio Erendira MCV (RBC) [Entitic vol] 87.2 fL Normal 81.0-99.0 [facility] Comment on above: Performed By: #### C BC #### [facility] [address] [place], [place] [address] Helio Erendira Monocytes (Bld) [#/Vol] 0.6 103/ul Normal 0.3-0.8 [facility] Comment on above: Performed By: #### C BC #### [facility] [address] [place] [address] Helio Erendira Monocytes/100 WBC (Bld) 6.7 % Normal 1.7-12.0 [facility] Comment on above: Performed By: #### C BC #### [facility] [address] [place] [address] Helio Erendira Neutrophils (Bld) [#/Vol] 6.9 103/ul Critically high 1.4-6.5 [facility] Comment on above: Performed By: #### C BC #### [facility] [address] [place] [address] Helio Erendira Neutrophils/100 WBC (Bld) 78.0 % Critically high 43.0-75.0 [facility] Comment on above: Performed By: #### C BC #### [facility] [address] [place] [address] Helio Erendira Platelet mean volume (Bld) [Entitic vol] 9.8 fL Normal 9.5-13.5 [facility] Comment on above: Performed By: #### C BC #### [facility] [address] [place] [address] Helio Erendira Platelets (Bld) [#/Vol] 200 103/ul Normal 150-450 [facility] Comment on above: Performed By: #### C BC #### [facility] [address] [place] [address] Helio Erendira RBC (Bld) [#/Vol] 4.23 106/ul Normal 4.20-5.40 [facility] Comment on above: Performed By: #### C BC #### [facility] [address] [place] [address] Helio Krishna WBC (Bld) [#/Vol] 8.8 103/ul Normal 4.0-11.0 [facility] Comment on above: Performed By: #### C BC #### [facility] [address] [place] [address] Helio Krishna CULTURE URINEon 11-21-2019 CULTURE URINE Culture Observations: No growth Normal [facility] Comment on above: Performed By: #### A ROMY #### [facility] [address] [place] [address] Helioari Krishna DRUG SCREEN RAPID (URINE)on 11-21-2019 AMP Negative Normal NEGATIVE [facility] Comment on above: Performed By: #### D CHEMA, UAMIC #### [facility] [address] [place] [address] Helio Erendira BAR Negative Normal NEGATIVE [facility] Comment on above: Performed By: #### D CHEMA, UAMIC #### [facility] [address] [place] [address] Helio Erendira BUP Negative Normal NEGATIVE [facility] Comment on above: Performed By: #### Roque BEAR, UAMIC #### [facility] [address] [place] [address] Helio Erendira BZO Negative Normal NEGATIVE [facility] Comment on above: Performed By: #### Roque BEAR, UAMIC #### [facility] [address] [place] [address] Helio Erendira JAYLA Negative Normal NEGATIVE [facility] Comment on above: Performed By: #### D CHEMA, UAMIC #### [facility] [address] [place] [address] Helio Erendira CUT-OFFS SEE BELOW Normal [facility] Comment on above: Result Comment: AMP [...] Performed By: #### D CHEMA UAMIC #### [facility] [address] [place] [address] Helio Erendira DRUG CUT HEADER DRUG CLASS TEST SYSTEM CUT-OFF CONCENTRATIONS ARE FOLLOWS: Normal [facility] Comment on above: Performed By: #### D CHEMA UAMIC #### [facility] [address] [place] [address] Helio Erendira mAMP Negative Normal NEGATIVE [facility] Comment on above: Performed By: #### Roque BEAR UAMIC #### [facility] [address] [place] [address] Helio Erendira MTD Negative Normal NEGATIVE [facility] Comment on above: Performed By: #### D CHEMA UAMIC #### [facility] [address] [place] [address] Helio Erendira OPI Negative Normal NEGATIVE [facility] Comment on above: Performed By: #### D CHEMA UAMIC #### [facility] [address] [place] [address] Helio Erendira OXY Negative Normal NEGATIVE [facility] Comment on above: Performed By: #### D CHEMA UAMIC #### [facility] [address] [place] [address] Helio Erendira PCP Negative Normal NEGATIVE [facility] Comment on above: Performed By: #### D CHEMA UAMIC #### [facility] [address] [place] [address] Helio Erendira PPX Negative Normal NEGATIVE [facility] Comment on above: Performed By: #### Roque BEAR UAMIC #### [facility] [address] [place] [address] Helio Krishna TCA Negative Normal NEGATIVE [facility] Comment on above: Performed By: #### D CHEMA UAMIC #### [facility] [address] [place] [address] Helio Krishna THC Negative Normal NEGATIVE [facility] Comment on above: Performed By: #### D CHEMA UAMIC #### [facility] [address] [place] [address] Helio Krishna GLYCOHEMOGLOBIN A1Con 2019 Glucose [Mass/Vol] 94 mg/dL Normal [facility] Comment on above: Performed By: #### A 1C #### [facility] [address] [place] [address] Helio Krishna HbA1c (Bld) [Mass fraction] 4.9 % Normal <=6.0 [facility] Comment on above: Performed By: #### A 1C #### [facility] [address] [place] [address] Helio Krishna PREG QUANT HCGon 11-21-2019 HCG QUANT 54124.00 mIU/mL Normal [facility] Comment on above: Performed By: #### P REGQNT #### [facility] [address] [place] [address] Helio Krishna HCG RANGE SEE BELOW Normal [facility] Comment on above: Result Comment: 5-50 0-1 WEEK 40-300 1-2 WEEKS 100-1,000 2-3 WEEKS 500-6,000 3-4 WEEKS 5,000-200,000 1-2 MONTHS 10,000-100,000 2-3 MONTHS 3,000-50,000 2ND TRIMESTER 1,000-50,000 3RD TRIMESTER Performed By: #### P REGQNT #### [facility] [address] [place] [address] Helio Krishna TYPE AND SCREENon 11-21-2019 TYPE AND SCREEN Negative Normal [facility] Comment on above: Performed By: #### T NS #### [facility] [address] [place] [address] Helio Guen UA RANDOM W/MICROSCOPICon Bacteria LM.HPF (Urine sed) [#/Area] TRACE Normal NONE SEEN [facility] Comment on above: Performed By: #### D CHEMA UAMIC #### [facility] [address] [place] [address] Helio Erendira Bilirubin [Mass/Vol] Negative Normal NEGATIVE [facility] Comment on above: Performed By: #### D CHEMA, UAMIC #### [facility] [address] [place] [address] Helio Erendira BLOOD Negative Normal NEGATIVE [facility] Comment on above: Performed By: #### D CHEMA UAMIC #### [facility] [address] [place] [address] Helio Erendira CAST NONE SEEN Normal NONE SEEN [facility] Comment on above: Performed By: #### D CHEMA UAMIC #### [facility] [address] [place] [address] Helio Erendira Clarity (U) CLEAR Normal [facility] Comment on above: Performed By: #### D CHEMA UAMIC #### [facility] [address] [place] [address] Helio Erendira Color (U) LT. YELLOW Normal YELLOW [facility] Comment on above: Performed By: #### D CHEMA UAMIC #### [facility] [address] [place] [address] Helio Erendira Crystals LM Nom (Urine sed) NONE SEEN Normal NONE SEEN [facility] Comment on above: Performed By: #### D CHEMA UAMIC #### [facility] [address] [place] [address] Helio Erendira Epithelial cells LM.HPF (Urine sed) [#/Area] RARE Normal [facility] Comment on above: Performed By: #### D CHEMA UAMIC #### [facility] [address] [place] [address] Helio Erendira Glucose [Mass/Vol] Negative Normal NEGATIVE [facility] Comment on above: Performed By: #### D CEHMA UAMIC #### [facility] [address] [place], [place] [address] Helio Erendira Ketones Ql (U) Negative Normal NEGATIVE [facility] Comment on above: Performed By: #### D CHEMA, UAMIC #### [facility] [address] [place], [place] [address] Helio Erendira MUCOUS NONE SEEN Normal NONE SEEN [facility] Comment on above: Performed By: #### D PEARLD, UAMIC #### [facility] [address] [place] [id number] Helio Erendira Nitrite Ql (U) Negative Normal NEGATIVE [facility] Comment on above: Performed By: #### D CHEMA, UAMIC #### [facility] [address] [place], [place] [id number] Helio Erendira pH (Bld) 7.0 Normal 5-9 [facility] Comment on above: Performed By: #### D CHEMA, UAMIC #### [facility] [address] [place], [place] [id number] Helio Erendira Protein [Mass/Vol] Negative Normal [facility] Comment on above: Performed By: #### D CHEMA, UAMIC #### [facility] [address] [place], [place] [id number] Helio Erendira RBC (Bld) [#/Vol] NONE SEEN Normal 0-2 [facility] Comment on above: Performed By: #### D CHEMA, UAMIC #### [facility] [address] [place], [place] [id number] Helio Erendira SPEC GRAVITY 1.010 Normal 1.005-<=1.025 [facility] Comment on above: Performed By: #### D CHEMA, UAMIC #### [facility] [address] [place], [place] [id number] Helio Erendira Urobilinogen Qn (U) 0.2 EU/dl Normal [facility] Comment on above: Performed By: #### D CHEMA, UAMIC #### [facility] [address] [place], [place] [id number] Helio Erendira WBC (Bld) [#/Vol] SMALL Normal NEGATIVE [facility] Comment on above: Performed By: #### D CHEMA UAMIC #### [facility] [address] [place], [place] [address] Helio Krishna WBC (Bld) [#/Vol] 2-5 Normal NONE SEEN [facility] Comment on above: Performed By: #### D CHEMA, UAMIC #### [facility] [address] [id number] Helio Krishna US PREG <14 WKSon 11-05-2019 US PREG <14 WKS Patient: SANGEETHA MELGOZA Exam Date: 11/05/2019 : 1995 Gender:F Ordering : DR. RAMONA JIMÉNEZ . Admission #: [id number] Family : Order #: [id number] CLICK HERE TO VIEW EXAM RADIOLOGY REPORT [...] M.D. on 11/06/2019 at 14:27 Normal [facility] ABO AND RH TYPEon 10-28-2019 ABO and Rh group Nom (Bld) ABO Rh Typing A Rh Positive Normal [facility] Comment on above: Performed By: #### A BORH #### [facility] [address] [place] [address] Helio Krishna PREG QUANT HCGon 10-28-2019 HCG QUANT 77825.00 mIU/mL Normal [facility] Comment on above: Result Comment: Veri fied by dilution Performed By: #### P REGQNT #### [facility] [address] [place], [place] [address] Helio Krishna HCG RANGE SEE BELOW Normal [facility] Comment on above: Result Comment: 5-50 0-1 WEEK 40-300 1-2 WEEKS 100-1,000 2-3 WEEKS 500-6,000 3-4 WEEKS 5,000-200,000 1-2 MONTHS 10,000-100,000 2-3 MONTHS 3,000-50,000 2ND TRIMESTER 1,000-50,000 3RD TRIMESTER Performed By: #### P REGQNT #### [facility] [address] [place], [place] [address] Helio Krishna Vital Signs Date Time Vital Sign Value Performing Clinician Facility 05-04-2025 08:57-0400 Body mass index (BMI) [Ratio] 34.17 kg/m2 Sarita Ballard PA Work Phone: [facility] 05-04-2025 08:57-0400 Body weight 84.73 kg Sarita Ballard PA Work Phone: [facility] 05-04-2025 08:57-0400 Diastolic blood pressure 70 mm[Hg] Sarita Charlotte PA Work Phone: [facility] 05-04-2025 08:57-0400 Systolic blood pressure 120 mm[Hg] Sarita Ballard PA Work Phone: [facility] 04-06-2025 10:46-0400 Body mass index (BMI) [Ratio] 32.7 kg/m2 Sarita Ballard PA Work Phone: [facility] 04-06-2025 10:46-0400 Body weight 81.1 kg Sarita Elio PA Work Phone: [facility] 04-06-2025 10:46-0400 Diastolic blood pressure 70 mm[Hg] Sarita Ballard PA Work Phone: [facility] 04-06-2025 10:46-0400 Systolic blood pressure 110 mm[Hg] Sarita Lozanoey PA Work Phone: [facility] 03-03-2025 10:24-0400 Body mass index (BMI) [Ratio] 32.58 kg/m2 Monico Bethany DO Work Phone: [facility] 03-03-2025 10:24-0400 Body weight 80.8 kg Monico Bethany DO Work Phone: [facility] 03-03-2025 10:24-0400 Diastolic blood pressure 64 mm[Hg] Monico Bethany DO Work Phone: [facility] 03-03-2025 10:24-0400 Systolic blood pressure 112 mm[Hg] Monico Bethany DO Work Phone: [facility] 02-13-2025 10:16-0400 Body height 157.5 cm [facility] Nurse [facility] 02-13-2025 09:52-0400 Body mass index (BMI) [Ratio] 31.64 kg/m2 [facility] Nurse [facility] 02-13-2025 09:52-0400 Body weight 78.47 kg [facility] 02-13-2025 09:52-0400 Diastolic blood pressure 80 mm[Hg] [facility] Nurse [facility] 02-13-2025 09:52-0400 Systolic blood pressure 126 mm[Hg] [facility] 09-13-2024 18:18-0500 Body temperature 97.9 [degF] Evangelist Jenkins MD Work Phone: [employer] 09-13-2024 18:18-0500 Diastolic blood pressure 65 mm[Hg] Evangelist Jenkins MD Work Phone: [employer] 09-13-2024 18:18-0500 Systolic blood pressure 122 mm[Hg] Evangelist Jenkins MD Work Phone: [employer] 09-13-2024 18:17-0500 Body mass index (BMI) [Ratio] 32.92 kg/m2 Evangelist Jenkins MD Work Phone: [employer] 09-13-2024 18:17-0500 Body weight 81.65 kg Evangelist Jenkins MD Work Phone: [employer] 09-13-2024 18:17-0500 Heart rate 78 /min [facility]ist Jenkins [facility] 09-13-2024 18:17-0500 Respiratory rate 16 /min Evangelist Jenkins MD [facility] 09-13-2024 18:17-0500 SaO2% (BldA) [Mass fraction] 98 % Evangelist Jenkins MD Work Phone: [facility] 06-10-2024 09:10-0400 Body weight 84.73 kg Monico Bethany DO Work Phone: [facility] 06-10-2024 09:10-0400 Diastolic blood pressure 64 mm[Hg] Monico Bethany DO Work Phone: [facility] 06-10-2024 09:10-0400 Systolic blood pressure 102 mm[Hg] Monico Bethany DO Work Phone: [facility] 06-03-2024 10:10-0400 Body weight 84.73 kg Sarita ROBERTO Work Phone: [facility] 06-03-2024 10:10-0400 Diastolic blood pressure 64 mm[Hg] Sarita ROBERTO Work Phone: [facility] 06-03-2024 10:10-0400 Systolic blood pressure 110 mm[Hg] Sarita ROBERTO Work Phone: [facility] 05-27-2024 10:47-0400 Body weight 85 kg Monico Bethany DO Work Phone: [facility] 05-27-2024 10:47-0400 Diastolic blood pressure 60 mm[Hg] Monico Bethany DO Work Phone: [facility] 05-27-2024 10:47-0400 Systolic blood pressure 114 mm[Hg] Monico Bethany DO Work Phone: [facility] 05-13-2024 08:40-0400 Body weight 83.46 kg Sarita ROBERTO Work Phone: [facility] 05-13-2024 08:40-0400 Diastolic blood pressure 74 mm[Hg] Sarita ROBERTO Work Phone: [facility] 05-13-2024 08:40-0400 Systolic blood pressure 122 mm[Hg] Sarita ROBERTO Work Phone: [facility] 09-25-2023 13:12-0500 Body height 157.5 cm [facility] 09-25-2023 13:12-0500 Body mass index (BMI) [Ratio] 28.72 kg/m2 [facility] 09-25-2023 13:12050 Body weight 71.22 kg [facility] 09-25-2023 13:12-0500 Diastolic blood pressure 86 mm[Hg] [facility] 09-25-2023 13:12-0500 Systolic blood pressure 116 mm[Hg] [facility] Encounters Encounter Date Encounter Type Care Provider Facility Start: 05-07-2025 End: 05-07-2025 Clinisync Result Encounter Sarita ROBERTO Work Phone: [facility] Unsolicited Start: 05-07-2025 End: 05-07-2025 Clinisync Result Encounter Sarita ROBERTO Work Phone: [facility] Unsolicited Start: 05-04-2025 End: 05-04-2025 Office outpatient visit 15 minutes Sarita ROBERTO Work Phone: [facility] [place] Comment on above: 24 weeks gestation o f ([facility]); Second trimester ([facility]); Diabetes mellitus screening Start: 05-04-2025 End: 05-04-2025 ambulatory SARITA BALLARD Not Available Start: 04-06-2025 End: 04-06-2025 Office outpatient visit 15 minutes Sarita ROBERTO Work Phone: [facility] Comment on above: Second trimester pre gnancy ([facility]); 20 weeks gestation of ([facility]) Start: 04-06-2025 End: 04-06-2025 ambulatory SARITA BALLARD Not Available Start: 04-06-2025 End: 04-06-2025 ambulatory [...] on above: 15 weeks gestation o f ([facility]); Second trimester fetus ([facility]); Screening, , for anatomic survey ([facility]) Start: 03-03-2025 End: 03-03-2025 ambulatory MONICO BETHANY [...] Start: 01-14-2025 End: 01-14-2025 ambulatory SARITA BEDOYA [facility] Start: 01-14-2025 End: 01-14-2025 Subsequent hospital visit by physician Sarita Bedoya EMERGENCY DOCTOR - WINDOWS ADMIN Work Phone: [facility] Start: 09-13-2024 End: 09-13-2024 Emergency department patient visit Evangelist Jenkins MD Work Phone: [facility] Comment on above: Laceration of [...] 01-28-2024 Telephone encounter [facility] Start: 09-25-2023 End: 09-25-2023 ambulatory SARITA Costello 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 [facility] Comment on above: Encounter for IUD re moval (Primary Dx) Start: 05-21-2023 End: 05-21-2023 Subsequent hospital visit by physician Sarita Bedoya EMERGENCY DOCTOR - WINDOWS ADMIN Work Phone: [facility] Start: 04-25-2023 ambulatory Sarita Biswasu t EMERGENCY DOCTOR-LANGUAGE ARTS TEACHER Facility:[facility] Start: 04-16-2023 End: 04-17-2023 ambulatory Sarita Basurtoemproselyn EMERGENCY DOCTOR-LANGUAGE ARTS TEACHER Facility:[facility] Start: 03-08-2023 End: 03-09-2023 ambulatory Sarita Basurtoemput EMERGENCY DOCTOR-LANGUAGE ARTS TEACHER Facility:[facility] Start: 05-25-2020 End: 05-26-2020 Evaluation and management [...] JIMÉNEZ Facility:[facility] Start: 05-16-2016 End: 05-16-2016 Ambulatory Lobo Upton Facility:[facility] Procedures Date Procedure Procedure Detail Performing Clinician Start: 05-07-2025 ALL CBC WITH AUTO DIFF Sarita ROBERTO Work Phone: Start: 05-04-2025 Urnls dip stick/tabl et rgnt [...] stick/tabl et rgnt non-auto w/o micrscp Monico Sims DO Work Phone: Start: 05-13-2024 Urnls dip stick/tabl et rgnt non-auto w/o micrscp Sarita ROBERTO Work Phone: Start: 05-21-2023 Toxin/antitoxin assa y tissue culture Sarita Costello Cleemput EMERGENCY DOCTOR - WINDOWS ADMIN Work Phone: Start: 05-26-2020 Delivery of Products [...] Td Vaccines (3 - Td or Tdap) [facility] Start: 09-23-2032 DTaP/Tdap/Td vaccine (3 - Td or Tdap) DTaP/Tdap/Td vaccine (3 - Td or Tdap) [facility] Start: 06-01-2025 End: 06-01-2025 Patient encounter procedure 06/01/2025 10:20 AM EDT Routine [facility] [address] [place] [id number] Monico Sims DO [address] [place] [address] [facility] Start: 05-04-2025 End: 05-04-2026 CBC panel - Blood by Automated count CBC Lab Routine Diabetes mellitus screening Expected: 05/04/2025 (Approximate), Expires: 05/04/2026 [facility] Work Phone: Comment on above: Expected: 05/04/2025 (Approximate), Expires: 05/04/2026 Start: 05-04-2025 End: 05-04-2026 Measurement of glucose 1 hour after glucose challenge for glucose tolerance test Glucose tolerance, 1 hour Lab Routine Diabetes mellitus screening Expected: 05/04/2025 (Approximate), Expires: 05/04/2026 [facility] Comment on above: Expected: 05/04/2025 (Approximate), Expires: 05/04/2026 Start: 05-04-2025 End: 05-04-2025 Patient encounter procedure 05/04/2025 10:40 AM EDT Routine [facility] [address] [place] [id number] Sarita Ballard, PA [address] [place], [facility] Start: 04-17-2025 Influenza vaccination Flu vacc ine (Season Ended) [facility] Start: 04-06-2025 End: 04-06-2025 Patient encounter procedure 04/06/2025 10:30 AM EDT Routine [facility] [address] [id number] Sarita Ballard, PA [address] [place] [address] [facility] Start: 04-06-2025 End: 04-06-2025 Professional / ancillary services management 04/06/2025 9:30 AM EDT Ancillary Procedure [facility] [address] [id number] [facility] Start: 03-03-2025 End: 06-03-2025 Alpha fetoprotein, maternal Alpha fetoprotein, maternal Lab Routine 15 weeks gestation of ([facility]) Second trimester fetus ([facility]) Expected: 03/03/2025 (Approximate), Expires: 06/03/2025 [facility] Work Phone: Comment on above: Expected: 03/03/2025 (Approximate), Expires: 06/03/2025 Start: 03-03-2025 End: 06-03-2025 US for US OB 14+ weeks anatomy scan Imaging Routine Screening, , for anatomic survey ([facility]) Expected: 03/03/2025, Expires: 06/03/2025 [facility] Comment on above: Expected: 03/03/2025 , Expires: [...] first trimester Expected: 02/13/2025 (Approximate), Expires: 02/13/2026 [facility] Comment on above: Expected: 02/13/2025 (Approximate), Expires: 02/13/2026 Start: 02-05-2025 End: 05-08-2025 US Pelvis transvaginal US OB transvaginal Imaging Routine Missed menses Expected: 02/05/2025, Expires: 05/08/2025 [facility] Work Phone: Comment on above: Expected: 02/05/2025 , Expires: 05/08/2025 Start: 09-25-2024 Adult BMI Screening Adult BMI Screen ing [facility] Start: 09-25-2024 Tobacco Screening Tobacco Screening [facility] Start: 06-10-2024 End: 06-10-2024 Patient encounter procedure [...] Vaccine ( season) COVID-19 Vaccine ( season) [facility] Start: 05-18-2024 COVID-19 Vaccine ( season) COVID-19 [facility]ine ( [facility]) [facility] Start: 05-18-2024 Influenza vaccination Influenza Vacc [facility] Start: 05-13-2024 End: 05-13-2025 US for US OB SCAN FOR GROWTH Imaging Routine size inconsistent with dates Expected: 05/13/2024 (Approximate), Expires: 05/13/2025 [facility] Work Phone: Comment on above: Expected: 05/13/2024 (Approximate), Expires: 05/13/2025 Start: 05-13-2024 End: 05-13-2024 Patient encounter procedure 05/13/2024 8:50 AM EDT Routine [facility] [address] [id number] Sarita Ballard PA [address] [place] [address] Arrived [facility] Comment on above: Arrived Start: 04-17-2024 Influenza vaccination Flu vaccine (# 1) [facility] Start: 05-18-2023 Influenza vaccination Influenza Vacc ine [facility] Start: 04-17-2023 Influenza vaccination Flu vaccine (# 1) [facility] Start: 12-04-2016 Screening for malign ant neoplasm of cervix Pap smear [facility] Start: 12-04-2014 Hepatitis B vaccine (1 of 3 - 19+ 3-dose series) Hepatitis B vaccine (1 of 3 - 19+ 3-dose series) [facility] Start: 12-04-2013 Adult BMI Follow Up Plan Adult BMI Follow Up Plan [facility] Start: 12-04-2013 Hepatitis C screening Hepatitis C sc reen [facility] Start: 12-04-2010 HIV screening HIV screen [facility] Start: 12-04-2008 Varicella vaccine (1 of 2 - 13+ 2-dose series) Varicella vaccine (1 of 2 - 13+ 2-dose series) [facility] Start: 2007 Depression Screen Depression Screen [facility] Start: 2007 Depression Screening Depression Scre ening [facility] Start: 12-04-1996 Varicella vaccine (1 of 2 - 2-dose childhood series) Varicella vaccine (1 of 2 - 2-dose childhood series) [facility] Start: 06-06-1996 COVID-19 Vaccine (#1) COVID-19 Vacci ne (#1) [facility] Bacteria identified in Urine by Culture Urine culture Microbiology Routine Missed menses Ordered: 02/13/2025 [facility] Comment on above: Ordered: 02/13/2025 CBC W Auto Different ial panel - Blood CBC and differential Lab Routine Missed menses , unspecified gestational age Ordered: 02/13/2025 [facility] Comment on above: Ordered: 02/13/2025 End: 05-21-2023 Gastrointestinal Panel, Molecular [facility] Work Phone: Comment on above: Once for 1 Occurrenc es starting 05/21/2023 until 05/21/2023 Hemoglobin A1c/Hemoglobin.total in Blood Hemoglobin A1c Lab Routine Missed menses , unspecified gestational age Ordered: 02/13/2025 [facility] Comment on above: Ordered: 02/13/2025 Hepatitis B virus de la rosa rface Ag [Presence] in Serum or Plasma by Immunoassay Hepatitis B surface antigen Lab Routine Missed menses , unspecified gestational age Ordered: 02/13/2025 [facility] Comment on above: Ordered: 02/13/2025 Hepatitis C virus Ab [Presence] in Serum or Plasma by Immunoassay Hepatitis C antibody Lab Routine Missed menses , unspecified gestational age Ordered: 02/13/2025 [facility] Comment on above: Ordered: 02/13/2025 HIV-1/HIV-2 antigen/antibody combination immunoassay HIV-1 and HIV-2 antibodies Lab Routine Missed menses , unspecified gestational age Ordered: 02/13/2025 [facility] Comment on above: Ordered: 02/13/2025 End: 05-21-2023 O&P PANEL (TRAVEL ASSOCIATED) #1 [facility] Comment on above: Once for 1 Occurrenc es starting 05/21/2023 until 05/21/2023 Reagin Ab [Presence] in Serum by RPR RPR Lab Routine Missed menses , unspecified gestational age Ordered: 02/13/2025 [facility] Comment on above: Ordered: 02/13/2025 Rubella antibody, IgG Rubella an tibody, IgG Lab Routine Missed menses , unspecified gestational age Ordered: 02/13/2025 [facility] Comment on above: Ordered: 02/13/2025 US Pelvis transvaginal US OB tra nsvaginal Imaging Routine Missed menses 02/13/2025 9:51 AM EDT [facility] Immunizations Immunization Date Immunization Notes Care Provider Elo pham 09-23-2022 tetanus toxoid, redu angelina diphtheria toxoid, and acellular pertussis vaccine, adsorbed [facility] Payers Date Payer Category Payer Medicaid [employer] [facility] [id number] 2023-Present [address] [address] [place] [address] [id number] 2023 Medicaid (Managed Care) ELIZABETH KINGSCO [id number] 2020 Unknown 2016 Private Health Insurance [id number] 1995 Unknown [id number] 2.16.840.1.068165.3.579.2. 593 1995 Unknown [id number] 2.16.840.1.006011.3.579.2. 593 1995 Unknown [id number] 2.16.840.1.097460.3.579.2. 593 1995 Unknown [id number] 2.16.840.1.974701.3.579.2. 593 1995 Unknown [id number] 2.16.840.1.283229.3.579.2. 593 1995 Unknown [id number] 2.16.840.1.001325.3.579.2. 593 1995 Unknown [id number] 2.16.840.1.448355.3.579.2. 593 1995 Unknown [id number] 2.16.840.1.916986.3.579.2. 593 1995 Unknown [id number] 2.16.840.1.632412.3.579.2. 593 1995 Unknown [id number] 2.16.840.1.621471.3.579.2. 593 1995 Unknown [id number] 2.16.840.1.990824.3.579.2. 593 1995 Unknown [id number] 2.16.840.1.756360.3.579.2. 196 1995 Unknown [id number] 2.16.840.1.840686.3.579.2. 196 1995 Unknown [id number] 2.16.840.1.376564.3.579.2. 196 1995 Unknown [id number] 2.16.840.1.621689.3.579.2. 196 1995 Unknown [id number] 2.16.840.1.863256.3.579.2. 1286 1995 Unknown [id number] 2.16.840.1.773362.3.579.2. 173 1995 Unknown [id number] 2.16.840.1.250242.3.579.2. 173 1995 Unknown [id number] 2.16.840.1.122532.3.579.2. 1259 1995 Unknown [id number] 2.16840.1.350876.3.579.2. 1259 1995 Unknown [id number] 2.16840.1.772424.3.579.2. 1259 1995 Unknown [id number] 2.16.840.1.668766.3.579.2. 1259 1995 Unknown [id number] 2.16840.1.019609.3.579.2. 1259 1995 Unknown [id number] 2.16840.1.026886.3.579.2. 1259 1995 Unknown [id number] 2.16840.1.594174.3.579.2. 1259 1995 Unknown [id number] 2.16.840.1.407607.3.579.2. 1259 1995 Unknown [id number] 2.16.840.1.318573.3.579.2. 1259 1995 Unknown [id number] 2.16.840.1.962838.3.579.2. 1259 1995 Unknown [id number] 2.16.840.1.338605.3.579.2. 1259 1959 Unknown [id number] Social History Date Type Detail Facility Start: 09-23-2022 End: 04-16-2023 Tobacco smoking status [facility] Never smoked tobacco [facility] Start: 09-23-2022 End: 04-16-2023 Tobacco use and exposure Smokeless tobacco non-user [facility] Start: 1995 Sex Assigned At Not on file B ON [facility] Tobacco smoking status MEIS Tobacco smoking consumption unknown [facility] Start: 10-02-2023 [facility] Start: 09-23-2022 End: 04-16-2023 Gender identity Not on file [facility] Start: 09-23-2022 End: 04-16-2023 History of Social function [facility] Read-Only, Retired: Physical Abuse Denies [facility] Start: 09-25-2023 Alcohol intake Ex-drinker (finding) [facility] Start: 04-28-2019 Sex Female (finding) [facility] Clinical Notes 09-25-2023 to 05-04-2025 PARDEEP [...] Missed menses 12/11/2023 15 weeks gestation of ([facility]) 03/03/2025 Second trimester fetus ([facility]) 03/03/2025 Resolved Ambulatory Problems Diagnosis Date Noted [...] PLAN ICD-10-CM 1. 24 weeks gestation of ([facility]) Z3A.24 POCT urinalysis dipstick manually resulted 2. Second trimester ([facility]) Z34.92 POCT urinalysis dipstick manually resulted 3. [...] of: PARDEEP Joaquin documented in this encounter [facility] 04-06-2025 History of Presen t illness Narrative Reason [...] Missed menses 12/11/2023 15 weeks gestation of ([facility]) 03/03/2025 Second trimester fetus ([facility]) 03/03/2025 Resolved Ambulatory Problems Diagnosis Date Noted [...] ASSESSMENT & PLAN ICD-10-CM 1. Second trimester ([facility]) Z34.92 2. 20 weeks gestation of ([facility]) Z3A.20 Return OB: Patient presents today for [...] of: PARDEEP Joaquin documented in this encounter [facility] 03-03-2025 History of Presen t illness Narrative [...] Missed menses 12/11/2023 15 weeks gestation of ([facility]) 03/03/2025 Second trimester fetus ([facility]) 03/03/2025 Resolved Ambulatory Problems Diagnosis Date Noted [...] nursing note reviewed. Exam conducted with a public safety telecommunicator present. Vitals: Estimated body mass index is 32.58 kg/m as calculated from the following: Height as of 02/13/25: 5' 2 . Weight as of this encounter: 178 lb 1.9 oz. BP: 112/64 No LMP recorded (lmp unknown). Patient is . ASSESSMENT & PLAN ICD-10-CM 1. 15 weeks gestation of ([facility] Z3A.15 Alpha fetoprotein, maternal Alpha fetoprotein, maternal POCT urinalysis dipstick manually resulted 2. Second trimester fetus ([facility]) Z34.92 Alpha fetoprotein, maternal Alpha fetoprotein, maternal [...] or undercooked meat, and stay away from [facility]. Patient has been consulted regarding any [...] Monico Sims DO documented in this encounter [facility] 02-13-2025 History of Presen t illness Narrative [...] or undercooked meat, and stay away from [facility]. Patient has also been advised to [...] Rosana Montague MA documented in this encounter [facility] 09-13-2024 [facility] Discharg e Evangelist Tapia MD - [...] be sent through Care Everywhere.Hand Laceration: Stitches (Gibraltarian)documented in this encounter [facility] 06-10-2024 History of Presen t illness Narrative [...] nursing note reviewed. Exam conducted with a public safety telecommunicator present. Vitals: There is no height or [...] Monico Sims DO documented in this encounter [facility] 06-03-2024 History of Presen t illness Narrative [...] of: PARDEEP Joaquin documented in this encounter [facility] 05-27-2024 History of Presen t illness Narrative [...] nursing note reviewed. Exam conducted with a public safety telecommunicator present. Vitals: There is no height or [...] Monico Sims DO documented in this encounter [facility] 05-13-2024 History of Presen t illness Narrative [...] of: PARDEEP Joaquin documented in this encounter [facility] 01-28-2024 Miscellaneous Notes Called and spoke to nurse Jacqueline in Dr. Sims's office regarding order sent to [facility]. Order for EFW percentile at 6th percentile on ultrasound done at [facility]. Explained that they used 06/17/24 as the VANGIE on that ultrasound instead of the document VANGIE of 06/24/24. Office called [place] and they are recalculating the report and sending an addendum. Order can be disregarded. documented in this encounter [facility] 01-28-2024 Telephone encounter Note Called and spoke to Jacqueline nurse in Dr. Sims's office regarding order sent to [facility]. Order for EFW percentile at 6th percentile on ultrasound done at [facility]. Explained that they used 06/17/24 as the VANGIE on that ultrasound instead of the document VANGIE of 06/24/24. Office called [facility] and they are recalculating the report and sending an addendum. Order can be disregarded. [facility] 09-25-2023 History of Presen t illness Narrative [...] APRN-CNP 09/25/23 1344 documented in this encounter [facility] Evaluation note Diagnosis Third trimester state, incidental [facility] Diagnosis Third trimester state, incidental size inconsistent with dates [facility] Diagnosis 36 weeks gestation of Third trimester state, incidental [facility] Diagnosis Third trimester state, incidental [facility] Diagnosis Laceration of left middle finger without foreign body without damage to nail, initial encounter- Primary [facility] Encounter for IUD removal- Primary documented in this encounter [facility]* Diagnosis Missed menses , unspecified gestational age Encounter for supervision of normal first in first trimester [facility] Diagnosis 15 weeks gestation of ([facility]) Second trimester fetus ([facility]) Screening, , for anatomic survey ([facility]) Encounter for anatomic survey documented in this [...] to plan and prepare for a healthy ([place]ral[place]arian) [facility] System[facility]ructionsNot on file documented [facility] Summary Purpose Family History No Family [...] CREATED AUTHOR AUTHOR'S ORGANIZ ATION 06/02/2020 [facility] DATE CREATED AUTHOR AUTHOR'S ORGANIZ ATION 04/26/2023 [facility] DATE CREATED AUTHOR AUTHOR'S ORGANIZ ATION 09/30/2023 [facility] DATE CREATED AUTHOR AUTHOR'S ORGANIZ ATION 01/15/2025 [facility] DATE CREATED AUTHOR AUTHOR'S ORGANIZ ATION 05/06/2025 [facility] dical Specialists EPIC Care Teams (unrecognized sec tion and content) Patient Support Partner Relationship Specialty Start Date End Date Sarita Bedoya, EMERGENCY DOCTOR - [facility] [address] [place] [address] PCP - General Certified Clinical Nurse Specialist 04/16/23 Patient Support Partner Relationship Specialty Start Date End Date Sarita Bedoya APRN - [facility] [address] [place] [address] PCP - General Certified Clinical Nurse Specialist 04/16/23 Patient Support Partner Relationship Specialty Start Date End Date Sarita Bedoya EMERGENCY DOCTOR-[facility] [address] [facility], [address] [address] PCP - General Nurse Practitioner 05/05/21 Patient Support Partner Relationship Specialty Start Date End Date [facility] [address] [facility], [address] [address] PCP - General Nurse Practitioner 05/05/21 Patient Support Partner Relationship Specialty Start Date End Date SbempSarita dempsey EMERGENCY DOCTOR - [facility] [address] [place], [place] [phone] PCP - General Certified Clinical Nurse Specialist [...] BE BASED ON THE PRIMARY CLINICAL RECORDS. [facility]. provides no warranty or guarantee of the accuracy or completeness of information in this document.
[2025-06-01 08:32] LABS: Hematocrit 28.1 % (36.0-48.0); Hemoglobin 9.1 g/dL (12.0-16.0); Immature Granulocytes Abs Auto 0.07 10^3/uL (0.00-0.03); Immature Granulocytes Pct Auto 0.7 % (0.0-0.5); Lymphocytes Absolute Auto 1.2 10^3/uL (1.2-3.8); Mean Corpuscular HGB Conc 32.4 g/dL (29.9-35.2); Mean Corpuscular Hemoglobin 24.9 pg (26.7-34.0); Mean Corpuscular Volume 77.0 fL (81.0-99.0); Platelet Count 169 10^3/uL (150-450); Red Blood Count 3.65 10^6/uL (4.20-5.40); White Blood Count 9.8 10^3/uL (4.0-11.0)
== END 2025-06-01 08:04 | disposition home or self-care (01) ==
PROVIDERS: Visit Provider Obstetrics & Gynecology
DX: D64.9 Anemia, unspecified (principal)
CPT/HCPCS: 36415; 85025

== ENCOUNTER 2025-06-05 08:13 | Outpatient (OUT) | payer OTHER, SELFPAY ==
--- OUTSIDE RECORDS SUMMARY | 2025-06-01 09:30 | XMS_ITS | Encounter Summary ---
Author Organization [facility] Address [address] [place] [address] Care Team Providers Care Regulatory Affairs Associate Name Role Phone Unavailable Primary Care Provider Unavailabl e Encounter Details Date Type Department Care Team (Latest Contact Info) Description 06/01/2025 9:30 AM EDT Ancillary Procedure [facility] [address] [place] [address] Uterine synechiae Social History Tobacco Use Types Packs/Day Years [...] Care Team (Late st Contact Info) Description 06/15/2025 8:50 AM EDT Routine ANAL[facility] [address] [place] [address] Laquita Little, DOROTHY [address] [place] [phone] documented as of this encounter Procedures Procedure Name Priority Date/Time Associated Diagnosis Comments US OB FOLLOW UP TRANSABDOMINAL APPROACH Routine 06/01/2025 10:01 AM EDT Uterine synechiae documented in this encounter Results * US OB follow up transabdominal approach (06/01/2025 10:01 AM EDT) Anatomical Region Laterality Modality Body Ultrasound 06/02/2025 12:2 1 PM EDT Impressions 06/02/2025 12:29 PM EDT 1. Single, live intrauterine , current sonographic age of 28 weeks and 4 days, with an estimated date of delivery of August 20, 2025. 2. Stable intrauterine findings, synechiae not associate with the closed internal cervical os. * Estimated Weight (g) by Percentile is based upon an accurate estimated age based on last menstrual period. TRANSCRIBED BY: ELECTRONICALLY SIGNED BY: Pedro Luis Packer MD Narrative 06/02/2025 12:29 PM EDT FINDINGS: Comparison made with prior examination May 04, 2025. A single, live intrauterine is present with normal cardiac rate of 138 beats per minute. Normal activity and amniotic fluid volume. Amniotic fluid index is cm. Morphology is grossly normal. The cervix is long and closed, cm. The placenta is anterior, not associated with the cervical os. The current sonographic age is 28 weeks and 4 days, based on the following measurements: BPD 7.0 cm (28 weeks, 1 days) Head Circumference 26.6 cm (29 weeks, 0 days) Abdominal Circumference 24.3 cm (28 weeks, 4 days) Femur Length 5.3 cm (28 weeks, 2 days) Presentation Placenta Anterior Weight (g) by Percentile 28.7 % * These measurements result in an estimated date of delivery of August 20, 2025. The current estimated weight is 1234 grams (2 pounds, 12 ounces). Persistent posterior uterine synechiae not related to the closed internal cervical os. Procedure Note Pedro Luis Packer MD - 06/02/2025 FINDINGS: Comparison made with prior examination May 04, 2025. A single, live intrauterine is present with normal cardiacrate of 138 beats per minute. Normal activity and amniotic fluidvolume. Amniotic fluid index is cm. Morphology is grossly normal. Thecervix is long and closed, cm. The placenta is anterior, notassociated with the cervical os. The current sonographic age is 28 weeksand 4 days, based on the following measurements: BPD 7.0 cm (28 weeks, 1 days) Head Circumference 26.6 cm (29 weeks, 0 days) Abdominal Circumference 24.3 cm (28 weeks, 4 days) Femur Length 5.3 cm (28 weeks, 2 days) Presentation Placenta Anterior Weight (g) by Percentile 28.7 % * These measurements result in an estimated date of delivery of August. The current estimated weight is 1234 grams (2 pounds, 12ounces). Persistent posterior uterine synechiae not related to the closed internalcervical os. IMPRESSION: 1. Single, live intrauterine , current sonographic age of 28weeks and 4 days, with an estimated date of delivery of August 20, 2025. 2. Stable intrauterine findings, synechiae not associate with the closedinternal cervical os. * Estimated Weight (g) by Percentile is based upon an accurateestimated age based on last menstrual period. TRANSCRIBED BY: ELECTRONICALLY SIGNED BY: Pedro Luis Packer MD us Bridger Sims DO IM OB US PROCEDURES Final Resul t documented in this encounter Visit Diagnoses Diagnosis Uterine synechiae documented in this encounter
--- OUTSIDE RECORDS SUMMARY | 2025-06-01 10:20 | XMS_ITS | Encounter Summary ---
Author Organization [facility] Address [address] [place] [address] Care Team Providers Care Hatch Boss Name Role Phone Unavailable Primary Care Provider Unavailabl e Reason for Visit * Reason Comments Routine Visit Encounter Details Date Type Department Care Team (Late st Contact Info) Description 06/01/2025 10:20 AM EDT Routine [facility] [place] [facility] [address] [place] [phone] Bridger Sims DO [address] [place], [place] [phone] 28 weeks gestation of ([facility]); Third trimester ([facility]) Social History Tobacco Use Types Packs/Day Years [...] Sign Reading Time Taken Comments Blood Pressure 104/72 06/01/2025 10:23 AM EDT Pulse - - Temperature - - Respiratory Rate - - Oxygen Saturation - - Inhaled Oxygen Concentration - - Weight 86.4 kg (190 lb 6.4 oz) 06/01/2025 10:23 AM EDT Height - - Body Mass Index 34.82 02/13/2025 10:16 AM EDT documented in this encounter Progress Notes * Bridger Sims DO - 06/01/2025 10:20 AM EDT Reason for Appointment: Patient ID: Sangeetha Villarreal is a 29 y.o. female who presents for Routine Visit Patient presents today for Return OB appointment. Current Medications: has a current medication list which includes the following prescription(s): iron polysaccharides and vit-fe fumarate-fa. Medical History: Active Ambulatory Problems Diagnosis Date Noted Missed menses 12/11/2023 15 weeks gestation of ([facility]) 03/03/2025 Second trimester fetus ([facility]) 03/03/2025 Resolved Ambulatory Problems Diagnosis Date Noted No Resolved Ambulatory Problems Past Medical History: Diagnosis Date Anemia Family History Problem Relation Name Age of Onset Seizures Father Social History Tobacco Use Smoking status: Not on file Smokeless tobacco: Not on file Substance Use Topics Alcohol use: Not on file Drug use: Not on file History reviewed. No pertinent surgical history. Allergies Allergen Reactions Latex Hives Hydrocortisone Hives Morphine Cortisone Rash Review of Systems: Review of Systems Constitutional: Negative. HENT: Negative. Eyes: Negative. Respiratory: Negative. Cardiovascular: Negative. Gastrointestinal: Negative. Genitourinary: Negative. Musculoskeletal: Negative. Skin: Negative. Neurological: Negative. All other systems reviewed and are negative. Hematological: Negative. Endocrine: Negative. Allergic/Immunologic: Negative. Objective Physical Exam Constitutional: Appearance: Normal appearance. She [...] nursing note reviewed. Exam conducted with a neurologist present. Vitals: Estimated body mass index is 34.82 kg/m?? as calculated from the following: Height as of 02/13/25: 5' 2 . Weight as of this encounter: 190 lb 6.4 oz. BP: 104/72 Patient's last menstrual period was 11/12/2024. Assessment/Plan Encounter Diagnosis: ICD-10-CM 1. 28 weeks gestation of ([facility]) Z3A.28 Urine dip 2. Third trimester ([facility]) Z34.93 Urine dip Return OB: Patient presents today for a routine obstetrics appointment. Patient is currently 28w6d . Patient states she is doing well but has complaints of being tired due to current . Patient has verbalizes frequent movement. labor precautions was discussed/given and patient was instructed to perform kick counts three times a day. Orders Placed This Encounter Procedures Urine dip Follow Up: Patient is to return to office in 2 week for routine OB appointment. Documented by Bridger Sims DO on behalf of: Bridger Sims DO documented in this encounter Plan of Treatment Upcoming Encounters Date Type Department Care Team (Late st Contact Info) Description 06/15/2025 8:50 AM EDT Routine [facility] [address] [place] [address] Laquita Little, RECLAMATION ENGINEER [address] [place] [phone] documented as of this encounter Procedures Procedure Name Priority Date/Time Associated Diagnosis Comments POCT URINALYSIS DIPSTICK Routine 06/01/2025 10:34 AM EDT 28 weeks gestation of ([facility]) Third trimester ([facility]) documented in this encounter Results * Urine dip (06/01/2025 10:34 AM EDT) Color, UA Yellow Clarity, UA Clear Glucose, UA Negative Negative - 2000(110) ++++ mg/dL Bilirubin, UA Negative Negative - 4(70) +++ mg/dL Ketones, UA Negative Negative - 160(16) ++++ mg/dL Spec Grav, UA 1.015 1 - 1.03 Blood, UA Negative Negative - 50 Haseeb/mcL pH, UA 6.5 5 - 9 Protein, UA Negative Negative - 2000(20) ++++ mg/dL Urobilinogen, UA 1.0 0.2 - 12 mg/dL Leukocytes, UA Negative Negative - 500+++ Ronaldo/mcL Nitrite, UA Negative Negative - Positive Urine 06/01/2025 10:3 4 AM EDT Bridger Sims DO POINT OF CARE TEST ENTER/EDIT OR DERABLES Final Result documented in this encounter Visit Diagnoses Diagnosis 28 weeks gestation of ([facility]) Third trimester ([facility]) state, incidental documented in this encounter
--- OUTSIDE RECORDS SUMMARY | 2025-06-05 08:19 | XMS_ITS | CCD ---
Author Organization [facility] Care Team Providers Care Wood Lather Name Role Phone Alvaro Uptonamber Almendarez Unavailable [...] RAMONA JIMÉNEZ Procedure Practitioner Unavailab le Cleemput LOAN WORKOUT OFFICER-GLOBAL COMMODITY MANAGER, Sarita Emmanuel Primary Care Unavai lable Cleemput LOAN WORKOUT OFFICER-GLOBAL COMMODITY MANAGER, Sarita Emmanuel Attending Unavai lable Cleemput LOAN WORKOUT OFFICER-GLOBAL COMMODITY MANAGER, Sarita Emmanuel Attending Unavai lable Cleemput LOAN WORKOUT OFFICER-GLOBAL COMMODITY MANAGER, Sarita Emmanuel Primary Care Unavai lable Cleemput LOAN WORKOUT OFFICER-GLOBAL COMMODITY MANAGER, Sarita Emmanuel Referring Jayy Roach MD, Demetrice Portillo Attending Unavailable Cleemput LOAN WORKOUT OFFICER-GLOBAL COMMODITY MANAGER, Sarita Emmanuel Primary Care Unavai lable Cleemput LOAN WORKOUT OFFICER-Sarita WHITE Primary Care Unavai lable Cleemput KIESHA-CHRISTOPHER, Sarita Emmanuel Attending Jayy lable Cleemput Sarita OCASIO Primary Care Provider SARITA BEDOYA Referring Unavailable CLEEMPROSELYN, SARITA Costello Primary Care Unavailable Unavailable Primary Care Provider Unavailabl e Cleemput LOAN WORKOUT OFFICER - AIR HAMMER OPERATOR, Sarita Costello Primary Care Provider Cleemput LOAN WORKOUT OFFICER-GLOBAL COMMODITY MANAGER, Sarita Costello Primary Care Provider SARITA BEDOYA Primary Care Unavailable MONICO SIMS Referring Unavailable CLEEMPROSELYN, SARITA Costello Primary Care Unavailable EVANGELIST JENKINS Attending Unavailable MONICO SIMS Attending Unavailable SARITA BALLARD Attending Unavailable BETHANYMONICO Attending Unavailable ELIO, SARITA Attending Unavailable MONICO SIMS Attending Unavailable Allergies Allergy Classification Reported Allergen(s) Allergy Type Date of Onset Reaction(s) Facility (1 source) Adhesive agent Drug allergy (disorder) [facility] Repository (2 sources) Latex; Translations: [LATEX] Drug allergy (disorder) 3 [facility] Repository (1 source) morphine Drug Allergy [facility] Repository (1 source) Latex Drug allergy (disorder) 0 [facility] Repository (5 sources) Latex Propensity to adverse reactions to drug 3 [facility] (5 sources) Hydrocortisone; Translations: [HYDROCORTISONE] Drug Allergy 3 [facility] Repository (20 sources) Cortisone Drug Allergy 4 Rash [facility] Healthcare Work Phone: (20 sources) Latex Propensity to adverse reactions 3 [facility] Healthcare Work Phone: (10 sources) Morphine Drug Allergy 4 [facility] Medications Current Medications Medication Drug Class(es) [...] 391 mg oral capsule (20 sources) Start: 05-07-2025 End: 06-06-2025 take 1 capsule by mouth once daily iron polysaccharides (ProFe) 391.3 (180 Fe) MG capsule Indications: Low hemoglobin Take 1 capsule (391.3 mg) by mouth Daily 30 capsule 3 05/07/2025 06/06/2025 Active Start: 03-27-2024 End: 03-27-2025 take 1 capsule by mouth once daily iron polysaccharides (ProFe) 391.3 (180 Fe) MG capsule Indications: Anemia affecting in second trimester (HHS-HCC) Take 1 capsule (391.3 mg) by mouth [...] Class(es) Dates Sig (Normalized) Sig (Original) levonorgestrel 0.203986 mg/hr intrauterine system (1 source) Progestin, Progestin-containi [...] specified screening] 03-03-2025 Episodic Residual codes; unclassified (13 sources) Gestation period, 15 weeks; Translations: [15 weeks gestation of ] Onset: 03-03-2025 03-03-2025 Episodic Residual codes; unclassified (2 sources) Gestation period, 20 weeks; Translations: [20 weeks gestation of ] 04-06-2025 Episodic Residual codes; unclassified (2 sources) Gestation period, 24 weeks; Translations: [24 weeks gestation of ] 05-04-2025 Episodic Residual codes; unclassified (2 sources) Gestation period, 28 weeks; Translations: [28 weeks gestation of ] 06-01-2025 Episodic Residual codes; unclassified (1 source) 39 [...] CBC WITH AUTO DIFFon BASOPHILS ABSOLUTE AUTO 0 [facility] Basophils/100 WBC (Bld) 0.3 % 0.2 - 2.0 % [facility] Eosinophils/100 WBC (Bld) 0.7 % Low 0.9 - 7.0 % [facility] Erythrocyte distribution width (RBC) [Ratio] 13.9 % 11.0 - 15.0 % [facility] Hematocrit (Bld) [Volume fraction] 28.1 % Low 36.0 - 48.0 % [facility] ([facility]ld) [Mass/Vol] 9.1 g/dL Low 12.0 - 16.0 g/dL [facility] IMMATURE GRANULOCYTES ABS AUTO 0.07 High [facility] Immature granulocytes/100 WBC (Bld) 0.7 % High 0.0 - 0.5 % [facility] Interpretation and review of laboratory results Abnormal [facility] LYMPHOCYTES ABSOLUTE AUTO 1.2 [facility] Lymphocytes/100 WBC (Bld) 12.6 % Low 20.5 - 60.0 % [facility] MCH (RBC) [Entitic mass] 24.9 pg Low 26.7 - 34.0 pg [facility] MCHC (RBC) [Mass/Vol] 32.4 g/dL 29.9 - 35.2 g/dL [facility] MCV (RBC) [Entitic vol] 77 fL Low 81.0 - 99.0 fL [facility] MONOCYTES ABSOLUTE AUTO 0.7 [facility] Monocytes/100 WBC (Bld) 7.2 % 1.7 - 12.0 % [facility] NEUTROPHILS ABSOLUTE AUTO 7.7 High [facility] Neutrophils/100 WBC (Bld) 78.5 % High 43.0 - 75.0 % [facility] Platelet mean volume (Bld) [Entitic vol] 10.2 fL 9.5 - 13.5 fL [facility] Healthc are TBH EO # 0.1 [facility] TBH PLT 169 [facility] TB[facility] RBC 3.65 Low [facility] TB[facility] WBC 9.8 [facility] Healthcar e US OB FOLLOW UP TRANSABDOMIN AL APPROACHon 06-01-2025 US OB FOLLOW UP TRANSABDOMINAL APPROACH FINDINGS: Comparison made with prior examination May [...] related to the closed internal cervical os. IMPRESSION: 1. Single, live intrauterine , [...] ELECTRONICALLY SIGNED BY: Pedro Luis Packer MD Normal Not Available Comment on above: Order Comment: US OB SCAN FOR GROWTH Estimated Date of Delivery: 08/19/25 Gestational Age as of 05/12/2025: 25w6d Urinalysis macro (dipstick) panel (U)on 06-01-2025 Bilirubin, UA Negative Negative - 4(70) +++ mg/dL [facility] Blood, UA Negative Negative - 50 Haseeb/mcL [facility] Clarity, UA Clear [facility] Healthde re Color, UA Yellow [facility] Healthcar e Glucose, UA Negative Negative - 1999(110) ++++ mg/dL [facility] Interpretation and review of laboratory results Normal [facility] Ketones, UA Negative Negative - 160(16) ++++ mg/dL [facility] Leukocytes, UA Negative Negative - 500+++ Ronaldo/mcL [facility] Nitrite, UA Negative Negative - Positive [facility] pH, UA 6.5 5 - 9 [facility] e Protein, UA Negative Negative - 1999(20) ++++ mg/dL [facility] Spec Grav, UA 1.015 1 - 1.03 [facility] Urobilinogen, UA 1.0 0.2 - 12 mg/dL [facility] ALL CBC WITH AUTO DIFFon BASOPHILS ABSOLUTE AUTO 0.1 [facility] Basophils/100 WBC (Bld) 0.5 % 0.2 - 2.0 % [facility] Eosinophils/100 WBC (Bld) 1.6 % 0.9 - 7.0 % [facility] Erythrocyte distribution width (RBC) [Ratio] 14 % 11.0 - 15.0 % [facility] Hematocrit (Bld) [Volume fraction] 29.8 % Low 36.0 - 48.0 % [facility] Healthcar e Hemoglobin (Bld) [Mass/Vol] 9.5 g/dL Low 12.0 - 16.0 g/dL [facility] IMMATURE GRANULOCYTES ABS AUTO 0.08 High [facility] Immature granulocytes/100 WBC (Bld) 0.8 % High 0.0 - 0.5 % [facility] Interpretation and review of laboratory results Abnormal [facility] LYMPHOCYTES ABSOLUTE AUTO 1.2 [facility] Lymphocytes/100 WBC (Bld) 12.6 % Low 20.5 - 60.0 % [facility] MCH (RBC) [Entitic mass] 25.2 pg Low 26.7 - 34.0 pg [facility] MCHC (RBC) [Mass/Vol] 31.9 g/dL 29.9 - 35.2 g/dL [facility] MCV (RBC) [Entitic vol] 79 fL Low 81.0 - 99.0 fL [facility] MONOCYTES ABSOLUTE AUTO 0.7 [facility] Monocytes/100 WBC (Bld) 7.7 % 1.7 - 12.0 % [facility] NEUTROPHILS ABSOLUTE AUTO 7.2 High [facility] Neutrophils/100 WBC (Bld) 76.8 % High 43.0 - 75.0 % [facility] Platelet mean volume (Bld) [Entitic vol] 10.8 fL 9.5 - 13.5 fL [facility] Healthc are TBH EO # 0.2 [facility] [...] II, MD, PHD at 05-May-2025 07:59:10 AM [facility] Normal Not Available Comment on above: Order Comment: US OB INCOMPLETE ANATOMY Estimated Date of Delivery: 08/19/25 Gestational Age as of 04/13/2025: 21w5d Urinalysis macro (dipstick) panel (U)on 05-04-2025 Bilirubin, UA Negative Negative - 4(70) +++ mg/dL [facility] Blood, UA Negative Negative - 50 Haseeb/mcL [facility] Clarity, UA Clear [facility] Healthca re Color, UA Straw [facility] Glucose, UA Negative Negative - 1999(110) ++++ mg/dL [facility] Interpretation and review of laboratory results Abnormal [facility] Ketones, UA Negative Negative - 160(16) ++++ mg/dL [facility] Leukocytes, UA Negative Negative - 500+++ Ronaldo/mcL [facility] Nitrite, UA Negative Negative - Positive [facility] pH, UA 6 5 - 9 [facility] Protein, UA Positive Negative - 1999(20) ++++ mg/dL [facility] Spec Grav, UA 1.03 1 - 1.03 [facility] Urobilinogen, UA 1.0 0.2 - 12 mg/dL [facility] US OB 14+ WEEKS [...] II, MD, PHD at 07-Apr-2025 07:25:13 AM [facility] Normal Not Available Comment on above: Order Comment: US OB ANATOMY SINGLE W US OB CERVICAL LENGTH Estimated Date of Delivery: 08/19/25 Gestational Age as of 03/03/2025: 15w6d AFP, SERUM, OPEN SPINA BIFID Aon 03-05-2025 AFP MOM 1.27 . [facility] AFP VALUE 37.2 ng/mL . [facility] [employer] COMMENT: Comment . [facility] [employer] Comment on above: Crystal Mancilla , Ph.D., [facility] Director References: Available Upon Request. Multiples Of Median Cutoffs For AFP Elevations Colbert 2.5 Black 2.8 IDD 2.0 Twins 4.5 Abbreviation Definitions IDD - Insulin Dep Diabetes OSBR - Open Spina Bifida Risk For further inquiries contact [employer] [facility] at [phone]. This test was developed and its performance characteristics determined by [employer]. It has not been cleared or approved by the Food and Drug Administration. Performed at: [facility] [address] [place], [place] [id number] Materials Planning Analyst: Nickolas Flynn [facility], Phone: [phone] GEST. AGE ON COLLECTION DATE 15.9 . weeks [facility] GESTAT. AGE BASED ON Ultrasound . [facility] Comment on above: 15.9 on 03/03/2025 Recalculations are not recommended when gestational dating by LMP and ultrasound are within 10 days. INSULIN DEP DIABETES No . [facility] INTERPRETATION Comment . [facility] Comment on above: Interpretation: Scre en Negative [...] Customer Services to discuss available options. The [employer] recommends amniocentesis be offered to women age 35 and older. [age] [facility] MULTIPLE GESTATION No . [facility] OSBR RISK 1 [place] 525 . ANALIA mancia RACE . [facility] [employer] RESULTS Report . [facility] [employer] TEST RESULTS: Negative . [facility] WEIGHT 178 . lbs [facility] [employer] N N ULTRASOUND [id number] [phone] N 1 178 N N N N N White/ [facility] [employer] Urinalysis macro (dipstick) panel (U)on 03-03-2025 Bilirubin, UA Negative Negative - 4(70) +++ mg/dL [facility] Blood, UA Negative Negative - 50 Haseeb/mcL [facility] Clarity, UA Clear [facility] re Color, UA Yellow [facility] [employer] Glucose, UA Negative Negative - 1999(110) ++++ mg/dL [facility] Interpretation and review of laboratory results Abnormal [facility] Ketones, UA Negative Negative - 160(16) ++++ mg/dL [facility] Leukocytes, UA Negative Negative - 500+++ Ronaldo/mcL [facility] Nitrite, UA Negative Negative - Positive [facility] pH, UA 7.5 5 - 9 [facility] [employer] Protein, UA Trace Negative - 1999(20) ++++ mg/dL [facility] Spec Grav, UA 1.02 1 - 1.03 [facility] Urobilinogen, UA 0.2 0.2 - 12 mg/dL [facility] BOX TESTon 03-02-2025 BOX TEST SENT OUT [facility]ITY [facility] BOX1 [facility] BOX2 03/02/25 [facility] UNITY BOX [facility] HCG ( test) Ql (U)o n 02-13-2025 Interpretation and review of laboratory results Abnormal [facility] Preg Test, Ur Positive Negative [facility] Health care No Panel Informationon 02-13 [facility] US OB TRANSVAGINALon 02-13-2 025 US [...] II, MD, PHD at 16-Feb-2025 10:22:48 AM [facility] Normal Not Available Comment on above: Order Comment: US OB TRANSVAGINAL No LMP recorded. Urinalysis macro (dipstick) panel (U)on 02-13-2025 Bilirubin, UA Negative Negative - 4(70) +++ mg/dL [facility] Blood, UA Negative Negative - 50 Haseeb/mcL [facility] Clarity, UA Clear [facility] Color, UA Yellow [facility] Glucose, UA Negative Negative - 2000(110) ++++ mg/dL [facility] Interpretation and review of laboratory results Normal [facility] Ketones, UA Negative Negative - 160(16) ++++ mg/dL [facility] Leukocytes, UA Negative Negative - 500+++ Ronaldo/mcL [facility] Nitrite, UA Negative Negative - Positive [facility] pH, UA 7 5 - 9 [facility] Protein, UA Negative Negative - 2000(20) ++++ mg/dL [facility] Spec Grav, UA 1.025 1 - 1.03 [facility] care Urobilinogen, UA 0.2 0.2 - 12 mg/dL [facility] ALL HCG, QUANTITATIVEon -3 Interpretation and review of laboratory results Abnormal [facility] MHPT HCG, QUANT [id number] High [facility] thcare Comment on above: Non-preg premeno <=5 Postmeno <=8 Male <=3 If HCG results do not concur with clinical observations, additional testing to confirm results is recommended. Original Ordering Provider: MONICO LEI [facility] HCG, Quanton 01-14-2025 HCG, Quant 024218.0 mIU/mL High 0-7 [facility] Comment on above: Result Comment: Non-preg premeno <=5 Postmeno <=8 Male <=3 If HCG results do not concur with clinical observations, additional testing to confirm results is recommended. Performed By: #### B HCG #### [facility] [address] [place] [address] Materials Planning Analyst: Frankie Sen MD HCG, Quantitative, on 01-14-2025 HCG.beta subunit Qn [id number] m[IU]/mL [facility] Comment on above: Non-preg premeno <=5 Postmeno <=8 Male <=3 If HCG results do not concur with clinical observations, additional testing to confirm results is recommended. Interpretation and review of laboratory results Abnormal [facility] XR FINGER LEFT (MIN 2 VIEWS) [...] Koffi Ortez MD 09/13/24 Final result Normal [facility] XR Finger - left 2 Viewson 1 11-14-2023 No acute osseous abnormality. [facility] EXAMINATION: THREE XRAY VIEWS OF THE LEFT FINGERS 09/13/2024 6:42 pm COMPARISON: None. HISTORY: ORDERING SYSTEM PROVIDED HISTORY: lac TECHNOLOGIST PROVIDED HISTORY: lac Specify which digit to image->Third FINDINGS: Bone: No acute fracture. Mineralization: Normal bone mineralization. Joint: No dislocation. No significant degenerative changes. Soft tissues: Unremarkable. [facility] Koffi Ortez MD - 09/13/2024 EXAMINATION: THREE XRAY VIEWS OF THE LEFT FINGERS 09/13/2024 6:42 pm COMPARISON: None. HISTORY: ORDERING SYSTEM PROVIDED HISTORY: lac TECHNOLOGIST PROVIDED HISTORY: lac Specify which digit to image->Third FINDINGS: Bone: No acute fracture. Mineralization: Normal bone mineralization. Joint: No dislocation. No significant degenerative changes. Soft tissues: Unremarkable. IMPRESSION: No acute osseous abnormality. [facility] Radiology Study observation (narrative) [facility] XR Finger - left 2 ViewsOrde red By: Koffi Ortez on 09-13-2024 [facility] Work Phone: ALL CBC WITH AUTO DIFFon BASOPHILS ABSOLUTE AUTO 0.0 [facility] Basophils/100 WBC (Bld) 0.2 % 0.2 - 2.0 % [facility] Healthcare Eosinophils/100 WBC (Bld) 0.8 % Low 0.9 - 7.0 % [facility] Erythrocyte distribution width (RBC) [Ratio] 13.2 % 11.0 - 15.0 % [facility] Hematocrit (Bld) [Volume fraction] 25.7 % Low 36.0 - 48.0 % [facility] Hemoglobin (Bld) [Mass/Vol] 8.3 g/dL Low 12.0 - 16.0 g/dL [facility] IMMATURE GRANULOCYTES ABS AUTO 0.09 High [facility] Immature granulocytes/100 WBC (Bld) 0.7 % High 0.0 - 0.5 % [facility] Interpretation and review of laboratory results Abnormal [facility] LYMPHOCYTES ABSOLUTE AUTO 1.4 [facility] Lymphocytes/100 WBC (Bld) 11.5 % Low 20.5 - 60.0 % [facility] MCH (RBC) [Entitic mass] 25.5 pg Low 26.7 - 34.0 pg [facility] MCHC (RBC) [Mass/Vol] 32.3 g/dL 29.9 - 35.2 g/dL [facility] MCV (RBC) [Entitic vol] 78.8 fL Low 81.0 - 99.0 fL [facility] MONOCYTES ABSOLUTE AUTO 0.9 High [facility] Monocytes/100 WBC (Bld) 7.2 % 1.7 - 12.0 % [facility] NEUTROPHILS ABSOLUTE AUTO 9.7 High [facility] Neutrophils/100 WBC (Bld) 79.6 % High 43.0 - 75.0 % [facility] Platelet mean volume (Bld) [Entitic vol] 10.8 fL 9.5 - 13.5 fL [facility] are TB EO # 0.1 [facility] TB PLT 162 [facility] TB RBC 3.26 Low [facility] TB WBC 12.2 High [facility] Healthcar e [facility] HP CBC WITH PLATELET NO DI FFERENTIALon 06-17-2024 Erythrocyte distribution width (RBC) [Ratio] 13.0 % 11.0 - 15.0 % [facility] Hematocrit (Bld) [Volume fraction] 28.1 % Low 36.0 - 48.0 % [facility] Healthcar e Hemoglobin (Bld) [Mass/Vol] 9.2 g/dL Low 12.0 - 16.0 g/dL [facility] Interpretation and review of laboratory results Abnormal [facility] MCH (RBC) [Entitic mass] 25.5 pg Low 26.7 - 34.0 pg [facility] MCHC (RBC) [Mass/Vol] 32.7 g/dL 29.9 - 35.2 g/dL [facility] MCV (RBC) [Entitic vol] 77.8 fL Low 81.0 - 99.0 fL [facility] Platelet mean volume (Bld) [Entitic vol] 11.0 fL 9.5 - 13.5 fL [facility] Healthc are TBH PLT 170 [facility] TB RBC 3.61 Low [facility] TB WBC 8.4 [facility] Urinalysis macro (dipstick) panel (U)on 06-10-2024 Bilirubin, UA Negative Negative - 4(70) +++ mg/dL [facility] Blood, UA Negative Negative - 50 Haseeb/mcL [facility] Healthcare Clarity, UA Clear [facility] Color, UA Yellow [facility] Glucose, UA Negative Negative - 1999(110) ++++ mg/dL [facility] Interpretation and review of laboratory results Abnormal [facility] Ketones, UA Positive Negative - 160(16) ++++ mg/dL [facility] Healthcare Leukocytes, UA Positive Negative - 500+++ Ronaldo/mcL [facility] Healthcare Nitrite, UA Negative Negative - Positive [facility] Healthcare pH, UA 6.5 5 - 9 [facility] Healthcar e Protein, UA Negative Negative - 1999(20) ++++ mg/dL [facility] Healthcare Spec Grav, UA 1.025 1 - 1.03 [facility] Urobilinogen, UA 1.0 0.2 - 12 mg/dL [facility] Urinalysis macro (dipstick) panel (U)on 06-03-2024 Bilirubin, UA Negative Negative - 4(70) +++ mg/dL [facility] Blood, UA Negative Negative - 50 Haseeb/mcL [facility] Healthcare Clarity, UA Clear [facility] Color, UA Yellow [facility] Healthcar e Glucose, UA Negative Negative - 1999(110) ++++ mg/dL [facility] Interpretation and review of laboratory results Abnormal [facility] Ketones, UA Positive Negative - 160(16) ++++ mg/dL [facility] Healthcare Leukocytes, UA Positive Negative - 500+++ Ronaldo/mcL [facility] Healthcare Nitrite, UA Negative Negative - Positive [facility] pH, UA 5.5 5 - 9 [facility] Healthcar e Protein, UA Positive Negative - 1999(20) ++++ mg/dL [facility] Healthcare Spec Grav, UA 1.025 1 - 1.03 [facility] Urobilinogen, UA 1.0 0.2 - 12 mg/dL [facility] Urinalysis macro (dipstick) panel (U)on 05-27-2024 Bilirubin, UA Negative Negative - 4(70) +++ mg/dL [facility] Blood, UA Negative Negative - 50 Haseeb/mcL [facility] Healthcare Clarity, UA Clear [facility] Healthca re Color, UA Yellow [facility] Healthcar e Glucose, UA Negative Negative - 1999(110) ++++ mg/dL [facility] Interpretation and review of laboratory results Abnormal [facility] Ketones, UA Negative Negative - 160(16) ++++ mg/dL [facility] Leukocytes, UA Positive Negative - 500+++ Ronaldo/mcL [facility] Comment on above: small Nitrite, UA Negative Negative - Positive [facility] pH, UA 8.5 5 - 9 [facility] Healthcar e Protein, UA Negative Negative - 1999(20) ++++ mg/dL [facility] Spec Grav, UA 1.020 1 - 1.03 [facility] Urobilinogen, UA 0.2 0.2 - 12 mg/dL [facility] Urinalysis macro (dipstick) panel (U)on 05-13-2024 Bilirubin, UA Negative Negative - 4(70) +++ mg/dL [facility] Blood, UA Negative Negative - 50 Haseeb/mcL [facility] Clarity, UA Clear [facility] Healthca re Color, UA Yellow [facility] Healthcar e Glucose, UA Negative Negative - 1999(110) ++++ mg/dL [facility] Interpretation and review of laboratory results Abnormal [facility] Ketones, UA Negative Negative - 160(16) ++++ mg/dL [facility] Leukocytes, UA Trace Negative - 500+++ Ronaldo/mcL [facility] Nitrite, UA Negative Negative - Positive [facility] pH, UA 8.5 5 - 9 [facility] Healthcar e Protein, UA Trace Negative - 1999(20) ++++ mg/dL [facility] Spec Grav, UA 1.020 1 - 1.03 [facility] Urobilinogen, UA 0.2 0.2 - 12 mg/dL [facility] Clostridium Difficile Toxin/ Antigenon 05-21-2023 C. difficile glutamate dehydrogenase and toxins A+B IA.rapid Ql (Stl) Negative NEGATIVE [facility] Comment on above: No C. difficile anti gen and Toxin Detected. Specimen Description .[facility] Family Medicine Office/Clini c Noteon 03-08-2023 Family Medicine Office/Clinic Note Chief Complaint Yearly f/u History of Present Illness wellness exam VSS she gets headaches- weekly- Tylenol, Excedrin migraine, she has to go to bed, sleeps, usually gets better, no light or noise, sensitivity, no nausea, pounding she prefers as needed medication for headaches she needs a new [employer] Review of Systems General Adult ROS Fatigue: [...] has no concerns she has IUD- gave [employer] info Ordered: EKG 2. Migraines try imitrex if EKG is normal f/u in 1 month EKG normal Ordered: EKG Orders: SUMAtriptan, 1 tabs, Oral, Daily, PRN, may repeat dose after 2 hours up to a maximum of 200 mg in 24 hours, X 30 days, # 9 tabs, 0 Refill(s), 04/07/23 9:10:00 EDT, Pharmacy: [facility] [id number] Medical Decision Making Chronic conditions NOT treated [...] by Sarita Vo 03/08/23 11:43 EDT Normal [facility] CBC AUTO DIFFon 05-25-2020 Basophils (Bld) [#/Vol] 0.0 103/ul Normal 0.0-0.1 [facility] Comment on above: Performed By: #### C BC ####[facility] Fv[address]jh[address]im34[address] [place], [place] [address]Tubnfv Erendira Basophils/100 WBC (Bld) 0.3 % Normal 0.2-2.0 [facility] Comment on above: Performed By: #### C BC ####[facility] Gksytqoixx3465 [place], [place] [address]Vmjbzw Ernedira Eosinophils (Bld) [#/Vol] 0.1 103/ul Normal 0.0-0.7 [facility] [place] [facility] Comment on above: Performed By: #### C BC ####[facility] Oxbuvgtvkh4645 [place], [place] [address]Krzhqm E[place] Eosinophils/100 WBC (Bld) 1.2 % Normal 0.9-7.0 [facility] Comment on above: Performed By: #### C BC ####[facility] Djbquhmozm4619 [place], [place] [address]Pnxbxj E[place] Erythrocyte distribution width (RBC) [Ratio] 14.1 % Normal 11.0-15.0 [facility] Comment on above: Performed By: #### C BC ####[facility] Ttmmcvaryp[address]88 [address] [place] Hematocrit (Bld) [Volume fraction] 32.9 % Critically low 36.0-48.0 [facility] Comment on above: Performed By: #### C BC ####[facility] Ozcjizruyj8018 [address] [place] Hemoglobin (Bld) [Mass/Vol] 11.2 g/dL Critically low 12.0-16.0 [facility] Comment on above: Performed By: #### C BC ####[facility] [address] [place] [address] Erend[place] IG # 0.09 10e3/ul Critically high 0.00-0.03 [facility] Comment on above: Performed By: #### C BC ####[facility] [address] [place] [address] E[place] IG % 0.9 % Critically high 0.0-0.5 [facility] Comment on above: Performed By: #### C BC ####[facility] [address] [place] [address] E[place] Lymphocytes (Bld) [#/Vol] 1.3 103/ul Normal 1.2-3.8 [facility] [place] [facility] Comment on above: Performed By: #### C BC ####[facility] [address]vrs[address] [place] [address] Erendira Lymphocytes/100 WBC (Bld) 13.1 % Critically low 20.5-60.0 [facility] [place] [facility] Comment on above: Performed By: #### C BC ####[facility] [address] [place] [address] [place] MANUAL DIFF REQ NO Normal [facility] Comment on above: Performed By: #### C BC ####[facility] Uccdjwzwkc1366 [address] [place] MCH (RBC) [Entitic mass] 29.6 pg Normal 26.7-34.0 [facility] [place] [facility] Comment on above: Performed By: #### C BC ####[facility] [address]ok[address] [place] [id number] Krishna MCHC (RBC) [Mass/Vol] 34.0 g/dL Normal 29.9-35.2 [facility] [place] [facility] Comment on above: Performed By: #### C BC ####[facility] G[address]jgpazwv0513 [place] [id number] Erendira MCV (RBC) [Entitic vol] 87.0 fL Normal 81.0-99.0 [facility] [place] [facility] Comment on above: Performed By: #### C BC ####[facility] Dzosxpyyjq[address] [place], [place] [id number] Erendira Monocytes (Bld) [#/Vol] 0.9 103/ul Critically high 0.3-0.8 [facility] [place] [facility] Comment on above: Performed By: #### C BC ####[facility] Xsg[address]owevlz[address] [place], [place] [address]Gerken Erendira Monocytes/100 WBC (Bld) 9.1 % Normal 1.7-12.0 [facility] [place] [facility] Comment on above: Performed By: #### C BC ####[facility] M[address]shirjvg[address] [place], [place] [address]Gerken Erendira Neutrophils (Bld) [#/Vol] 7.6 103/ul Critically high 1.4-6.5 [facility] [place] [facility] Comment on above: Performed By: #### C BC ####[facility] K[address]ayyyal[address] [place], [place] [address]Gerken Erendira Neutrophils/100 WBC (Bld) 75.4 % Critically high 43.0-75.0 [facility] [place] [facility] Comment on above: Performed By: #### C BC ####[facility] Ivuwlwfxlm[address] [place], [place] [id number] Krishna Platelet mean volume (Bld) [Entitic vol] 10.1 fL Normal 9.5-13.5 [facility] [place] [facility] Comment on above: Performed By: #### C BC ####[facility] [address]ossqjr[address] [place], [place] [address]Gerken Erend[place] Platelets (Bld) [#/Vol] 200 103/ul Normal 150-450 [facility] [place] [facility] Comment on above: Performed By: #### C BC ####[facility] Uceqhtqawu1315 [address] [place] RBC (Bld) [#/Vol] 3.78 106/ul Critically low 4.20-5.40 [facility] [place] [facility] Comment on above: Performed By: #### C BC ####[facility] Hmfpwaqavp5925 [address] [place] WBC (Bld) [#/Vol] 10.1 103/ul Normal 4.0-11.0 [facility] Comment on above: Performed By: #### C BC ####[facility] [address] [place] [address] [place] DRUG SCREEN RAPID (URINE)on 05-25-2020 AMP Negative Normal NEGATIVE [facility] Comment on above: Performed By: #### D RUGRPD ####[facility] Ytyvrr[address] [place] [address] [place] BAR Negative Normal NEGATIVE [facility] Comment on above: Performed By: #### D RUGRPD ####[facility] [address]tch[address] [place] [address] [place] BUP Negative Normal NEGATIVE [facility] Comment on above: Performed By: #### D RUGRPD ####[facility] Rdqfakemmx[address] [place] [address] [place] BZO Negative Normal NEGATIVE [facility] Comment on above: Performed By: #### D RUGRPD ####[facility] Otivoqymul3918 [address] [place] JAYLA Negative Normal NEGATIVE [facility] [place] [facility] Comment on above: Performed By: #### D RUGRPD ####[facility] [address]zt[address] [place] [address] [place] CUT-OFFS SEE BELOW Normal [facility] [place] [facility] Comment on above: Result Comment: AMP (Amphetamine): [...] Performed By: #### D RUGRPD ####[facility] [address] [place] [address] DRUG CUT HEADER DRUG CLASS TEST SYSTEM CUT-OFF CONCENTRATIONS ARE FOLLOWS: Normal [facility] [place] [facility] Comment on above: Performed By: #### D RUGRPD ####[facility] [address]ty[address] [place] [address] mAMP Negative Normal NEGATIVE [facility] Comment on above: Performed By: #### Roque RUGRPD ####[facility] [address] [place] [address] MTD Negative Normal NEGATIVE [facility] Comment on above: Performed By: #### Roque RUGRPD ####[facility] [address] [place] [address] OPI Negative Normal NEGATIVE [facility] Comment on above: Performed By: #### D RUGRPD ####[facility] R[address]dr[address]fu[address] [place] [address] OXY Negative Normal NEGATIVE [facility] Comment on above: Performed By: #### D RUGRPD ####[facility] [address] [place] [address] PCP Negative Normal NEGATIVE [facility] Comment on above: Performed By: #### D RUGRPD ####[facility] [address]cs[address] [place] [address] PPX Negative Normal NEGATIVE [facility] Comment on above: Performed By: #### D RUGRPD ####[facility] Ecltjvqyyh1412 [address] [place] TCA Negative Normal NEGATIVE [facility] Comment on above: Performed By: #### D RUGRPD ####[facility] Gxzxokpvdp9224 [place] [id number] [place] THC Negative Normal NEGATIVE [facility] Comment on above: Performed By: #### D RUGRPD ####[facility] Xqqpgjuich6437 [address] [place] TYPE AND SCREENon 05-25-2020 TYPE AND SCREEN Negative Normal [facility] Comment on above: Performed By: #### T NS ####[facility] Jfkfduizkl[address]69 [address] COVID-19 PCRon 05-20-2020 SARS-CoV-2, EMILE Not Detected Normal Not Detected [facility] Comment on above: Result Comment: This nucleic acid amplification test was developed and its perfomance characteristics determined by [employer]. Nucleic acid amplification tests include PCR and [...] Performed By: #### C VDPCR ####[facility] Rqaynlzfhb0490 [address] CHLAMYDIA/GONOCOCCUS EMILE (SW AB/URINE/PAPon 05-06-2020 Chlamydia trachomatis, EMILE Negative Normal Negative [facility] Comment on above: Performed By: #### C T/NGNA ####[facility] Seufedvaid1213 [address] [place] Neisseria gonorrhoeae, EMILE Negative Normal Negative [facility] Comment on above: Performed By: #### C T/NGNA ####[facility] [address]eb[address] [place], [place] [id number] [place] GROUP B STREP CULTUREon 04-17 S. agalactiae Ag Ql (Unsp spec) Culture Observations: Negative for Group B Streptococcus Normal [facility] Comment on above: Performed By: #### G BSCX ####[facility] [address]qrs[address] [place] [address] [place] CBC AUTO DIFFon 03-04-2020 Basophils (Bld) [#/Vol] 0.0 103/ul Normal 0.0-0.1 [facility] Comment on above: Performed By: #### C BC ####[facility] Qtfiqfbiuz[address] [place] [address] [place] Basophils/100 WBC (Bld) 0.4 % Normal 0.2-2.0 [facility] Comment on above: Performed By: #### C BC ####[facility] At[address]ce[address] [place] [address] [place] Eosinophils (Bld) [#/Vol] 0.1 103/ul Normal 0.0-0.7 [facility] Comment on above: Performed By: #### C BC ####[facility] [address]rkxkt[address] [place] [address] [place] Eosinophils/100 WBC (Bld) 1.0 % Normal 0.9-7.0 [facility] Comment on above: Performed By: #### C BC ####[facility] [address]vuonpdto[address] [place] [address] [place] Erythrocyte distribution width (RBC) [Ratio] 13.1 % Normal 11.0-15.0 [facility] Comment on above: Performed By: #### C BC ####[facility] Gvnagnfttk8695 [place] [id number] Erend[place] Hematocrit (Bld) [Volume fraction] 34.5 % Critically low 36.0-48.0 [facility] Comment on above: Performed By: #### C BC ####[facility] Bxkvvvsobc7073 [place] [id number] Erendira Hemoglobin (Bld) [Mass/Vol] 11.6 g/dL Critically low 12.0-16.0 [facility] Comment on above: Performed By: #### C BC ####[facility] Oz[address]lstsvv[address] [place], [place] [address]Gerken [place] IG # 0.09 10e3/ul Critically high 0.00-0.03 [facility] Comment on above: Performed By: #### C BC ####[facility] [address]th[address] [place] [address] [place] IG % 0.9 % Critically high 0.0-0.5 [facility] Comment on above: Performed By: #### C BC ####[facility] [address]fs[address]wowpf[address] [place] [address] [place] Lymphocytes (Bld) [#/Vol] 1.2 103/ul Normal 1.2-3.8 [facility] Comment on above: Performed By: #### C BC ####[facility] Avrsqmmtsi[address] [place], [place] [address]Gerken [place]rend[place] Lymphocytes/100 WBC (Bld) 12.1 % Critically low 20.5-60.0 [facility] Comment on above: Performed By: #### C BC ####[facility] [address]eptdqo9753 [place] [id number] [place] MANUAL DIFF REQ NO Normal [facility] Comment on above: Performed By: #### C BC ####[facility] [address]fowqddiqr[address] [place], [place] [address]Gerken [place] MCH (RBC) [Entitic mass] 30.7 pg Normal 26.7-34.0 [facility] Comment on above: Performed By: #### C BC ####[facility] [address] [place] [address]Mwawnq E[place] MCHC (RBC) [Mass/Vol] 33.6 g/dL Normal 29.9-35.2 [facility] Comment on above: Performed By: #### C BC ####[facility] Wn[address] [place] [address]Yidufe E[place]ira MCV (RBC) [Entitic vol] 91.3 fL Normal 81.0-99.0 [facility] Comment on above: Performed By: #### C BC ####[facility] [address] [place] [address]Qtanno [place] Monocytes (Bld) [#/Vol] 0.7 103/ul Normal 0.3-0.8 [facility] Comment on above: Performed By: #### C BC ####[facility] Nghjumebbo[address] [place], [place] [address]Gerken [place]rendira Monocytes/100 WBC (Bld) 6.8 % Normal 1.7-12.0 [facility] Comment on above: Performed By: #### C BC ####[facility] [address]df[address] [place] [address]Cmysqj Erendira Neutrophils (Bld) [#/Vol] 7.8 103/ul Critically high 1.4-6.5 [facility] Comment on above: Performed By: #### C BC ####[facility] [address] [place] [address]Bakxyc E[place] Neutrophils/100 WBC (Bld) 78.8 % Critically high 43.0-75.0 [facility] Comment on above: Performed By: #### C BC ####[facility] [address]xd[address] [place] [address]Cakqlf [place] Platelet mean volume (Bld) [Entitic vol] 10.0 fL Normal 9.5-13.5 [facility] Comment on above: Performed By: #### C BC ####[facility] [address] [place] [address]Cidynn [place] Platelets (Bld) [#/Vol] 163 103/ul Normal 150-450 [facility] Comment on above: Performed By: #### C BC ####[facility] Ipglbsevkw0194 [address] [place] RBC (Bld) [#/Vol] 3.78 106/ul Critically low 4.20-5.40 [facility] Comment on above: Performed By: #### C BC ####[facility] Mybtenqvks1664 [address] [place] WBC (Bld) [#/Vol] 9.9 103/ul Normal 4.0-11.0 [facility] Comment on above: Performed By: #### C BC ####[facility] [address]wr[address] [place] [address] [place]ira GLUCOSE - 1HRon 03-04-2020 Glucose [Mass/Vol] 121 mg/dL Critically high 74-106 [facility] Comment on above: Performed By: #### G LU1HR ####[facility] [address] [place] [address] [place] CHLAMYDIA/GONOCOCCUS EMILE (SW AB/URINE/PAPon 01-28-2020 Chlamydia trachomatis, EMILE Negative Normal Negative [facility] Comment on above: Performed By: #### C T/NGNA ####[facility] [address] [place], [place] [address] Neisseria gonorrhoeae, EMILE Negative Normal Negative [facility] Comment on above: Performed By: #### C T/NGNA ####[facility] [address]wn[address] [place] [address] [place] TRICHAMONAS VAGINALIS. NAAon 01-28-2020 Trich vag by EMILE Negative Normal Negative [facility] Comment on above: Performed By: #### T RICHNA ####[facility] [address] [place] [address] [place] US PREG ANATOMY SINGLEon US PREG [...] by: LINDA CAICEDO Date: 2020-01-09 14:28 Normal [facility] PAP ACOG PANEL 3: 21 to 29on 12-30-2019 Age Gdln ACOG Testing 21-29 Normal [facility] Comment on above: Performed By: #### A ROMY #### [facility] [address] [place] [address] Helio Krishna Chlamydia, Nuc. Acid Amp Positive Abnormal Negative [facility] Comment on above: Result Comment: . Performed at: =G Performed By: #### A ROMY #### [facility] [address] [place] [address] Helio Krishna DIAGNOSIS: Comment Normal [facility] Comment on above: Result Comment: NEGA TIVE FOR INTRAEPITHELIAL LESION OR MALIGNANCY. THIS SPECIMEN WAS RESCREENED PART OF OUR CONVEYOR LINE BATTERY CHARGER PROGRAM. Performed at: WB Performed By: #### A ROMY #### [facility] [address] [place] [address] Helio Erendira Gonococcus, Nuc. Acid Amp Negative Normal Negative [facility] Comment on above: Result Comment: Perf ormed at: =G Performed By: #### A ROMY #### [facility] [address] [place] [address] Helio Krishna Methodology: Comment Normal [facility] Comment on above: Result Comment: This liquid based ThinPrep(R) pap test was screened with the use of an image guided system. Performed at: WB Performed By: #### A ROMY #### [facility] [address] [place] [address] Helio Erendira Note: Comment Normal [facility] Comment on above: Result Comment: The Pap [...] By: #### A ROMY #### [facility] [address] [place] [address] Helio Krishna Performed by: Comment Normal [facility] Comment on above: Result Comment: Cindy Taylor, Technology Applications Teacher (ASCP) Performed at: WB Performed By: #### A ROMY #### [facility] [address] [place] [address] Helio Krishna QC reviewed by: Comment Normal [facility] Comment on above: Result Comment: Shoshana Stevens, Supervisory Technology Applications Teacher (ASCP) Performed at: WB Performed By: #### A ROMY #### [facility] [address] [place] [address] Helioari Guen Reflex Criteria: Comment Normal [facility] Comment on above: Result Comment: The HPV DNA reflex criteria were not met with this specimen result therefore, no HPV testing was performed. . Performed at: WB Performed By: #### A ROMY #### [facility] [address] [place] [address] Helioari Guen Specimen adequacy: Comment Normal [facility] Comment on above: Result Comment: Sati sfactory for evaluation. Endocervical and/or squamous metaplastic cells (endocervical component) are present. Performed at: WB Performed By: #### A ROMY #### [facility] [address] [place] [address] Helio Krishna . . Normal [facility] Comment on above: Result Comment: Perf ormed at: WB Performed By: #### A ROMY #### [facility] [address] [place] [address] Helio Krishna HGB(ELECTP) FRACTION PROFILE on 11-24-2019 Hemoglobin (Bld) [Mass/Vol] 97.3 % Normal 96.4-98.8 [facility] Comment on above: Performed By: #### A ROMY #### [facility] [address] [place] [address] Helioari Krishna Hgb A2 2.7 % Normal 1.8-3.2 [facility] Comment on above: Performed By: #### A ROMY #### [facility] [address] [place] [address] Helio Erendira Hgb C 0.0 % Normal 0.0 [facility] Comment on above: Performed By: #### A ROMY #### [facility] [address] [place] [address] Helio Erendira Hgb F 0.0 % Normal 0.0-2.0 [facility] Comment on above: Performed By: #### A ROMY #### [facility] [address] [place] [address] Helio Krishna Hgb S 0.0 % Normal 0.0 [facility] Comment on above: Performed By: #### A ROMY #### [facility] [address] [place] [address] Helioari Krishna Hgb Solubility Negative Normal Negative [facility] Comment on above: Performed By: #### A ROMY #### [facility] [address] [place] [address] Helio Krishna Hgb Variant Normal [facility] Comment on above: Performed By: #### A ROMY #### [facility] [address] [place] [address] Helio Krishna Interpretation Comment Normal [facility] Comment on above: Result Comment: Norm al adult hemoglobin present. Performed By: #### A ROMY #### [facility] [address] [place] [address] Helio Krishna HEP B SURFACE ANTIGEN SCREEN on 11-22-2019 HBsAg Screen Negative Normal Negative [facility] Comment on above: Performed By: #### A ROMY #### [facility] [address] [place] [address] Helio Krishna HEPATITIIS C VIRUS ANTIBODYo n 11-22-2019 Hep C Virus Ab <0.1 Normal 0.0-0.9 [facility] Comment on above: Result Comment: Nega tive: < 0.8 Indeterminate: 0.8 - 0.9 Positive: > 0.9 . The CDC recommends that a positive HCV antibody result be followed up with a HCV Nucleic Acid Amplification test (006891). Performed By: #### H CV #### [facility] [address] [place] [address] Helio Krishna HIV 1 AND 2 WITH REFLEXon HIV Screen 4th Generation wRfx Non Reactive Normal Non Reactive [facility] Comment on above: Performed By: #### A ROMY #### [facility] [address] [place] [address] Helio Krishna RPR QUANTon 11-22-2019 Rapid Plasma Reagin, Quant Non Reactive Normal NonRea<1:1 [facility] Comment on above: Performed By: #### A ROMY #### [facility] [address] [place], [place] [id number] Helio Krishna RUBELLA AB IGGon 11-22-2019 Rubella Antibodies, IgG 1.49 index Normal Immune >0.99 [facility] Comment on above: Result Comment: Non- immune <0.90 Equivocal 0.90 - 0.99 Immune >0.99 Performed By: #### A ROMY #### [facility] [address] [place] [address] Helio Erendira VARICELLA IGG ABon 0 Varicella Zoster IgG <135 Critically low Immune >165 [facility] Comment on above: Result Comment: Nega tive <135 Equivocal 135 - 165 Positive >165 A positive result generally indicates exposure to the pathogen or administration of specific immunoglobulins, but it is not indication of active infection or stage of disease. Performed By: #### A ROMY #### [facility] [address] [place] [address] Helio Krishna CBC AUTO DIFFon 11-21-2019 Basophils (Bld) [#/Vol] 0.0 103/ul Normal 0.0-0.1 [facility] Comment on above: Performed By: #### C BC #### [facility] [address] [place], [place] [id number] Helio Erendira Basophils/100 WBC (Bld) 0.3 % Normal 0.2-2.0 [facility] Comment on above: Performed By: #### C BC #### [facility] [address] [place], [place] [id number] Helio Erendira Eosinophils (Bld) [#/Vol] 0.1 103/ul Normal 0.0-0.7 [facility] Comment on above: Performed By: #### C BC #### [facility] [address] [place], [place] [id number] Helio Erendira Eosinophils/100 WBC (Bld) 0.8 % Critically low 0.9-7.0 [facility] Comment on above: Performed By: #### C BC #### [facility] [address] [id number] Helio Erendira Erythrocyte distribution width (RBC) [Ratio] 12.8 % Normal 11.0-15.0 [facility] Comment on above: Performed By: #### C BC #### [facility] [address] [id number] Helio Erendira Hematocrit (Bld) [Volume fraction] 36.9 % Normal 36.0-48.0 [facility] Comment on above: Performed By: #### C BC #### [facility] [address] [address] Helio Erendira Hemoglobin (Bld) [Mass/Vol] 12.7 g/dL Normal 12.0-16.0 [facility] Comment on above: Performed By: #### C BC #### [facility] [address] [place] [address] Helio Erendira IG # 0.05 10e3/ul Critically high 0.00-0.03 [facility] Comment on above: Performed By: #### C BC #### [facility] [address] [place] [address] Helio Erendira IG % 0.6 % Critically high 0.0-0.5 [facility] Comment on above: Performed By: #### C BC #### [facility] [address] [place], [place] [phone] Helio Erendira Lymphocytes (Bld) [#/Vol] 1.2 103/ul Normal 1.2-3.8 [facility] Comment on above: Performed By: #### C BC #### [facility] [address] [place] [address] Helio Erendira Lymphocytes/100 WBC (Bld) 13.6 % Critically low 20.5-60.0 [facility] Comment on above: Performed By: #### C BC #### [facility] [address] [id number] Helio Erendira MANUAL DIFF REQ NO Normal [facility] Comment on above: Performed By: #### C BC #### [facility] [address] [place], [place] [address] Helioari Guen MCH (RBC) [Entitic mass] 30.0 pg Normal 26.7-34.0 [facility] Comment on above: Performed By: #### C BC #### [facility] [address] [place] [address] Helioari Krishna MCHC (RBC) [Mass/Vol] 34.4 g/dL Normal 29.9-35.2 [facility] Comment on above: Performed By: #### C BC #### [facility] [address] [place] [address] Helio Erendira MCV (RBC) [Entitic vol] 87.2 fL Normal 81.0-99.0 [facility] Comment on above: Performed By: #### C BC #### [facility] [address] [place] [address] Helio Erendira Monocytes (Bld) [#/Vol] 0.6 103/ul Normal 0.3-0.8 [facility] Comment on above: Performed By: #### C BC #### [facility] [address] [place] [address] Helio Erendira Monocytes/100 WBC (Bld) 6.7 % Normal 1.7-12.0 [facility] Comment on above: Performed By: #### C BC #### [facility] [address] [place] [address] Helio Erendira Neutrophils (Bld) [#/Vol] 6.9 103/ul Critically high 1.4-6.5 [facility] Comment on above: Performed By: #### C BC #### [facility] [address] [place] [address] Helio Erendira Neutrophils/100 WBC (Bld) 78.0 % Critically high 43.0-75.0 [facility] Comment on above: Performed By: #### C BC #### [facility] [address] [place] [address] Helio Erendira Platelet mean volume (Bld) [Entitic vol] 9.8 fL Normal 9.5-13.5 [facility] Comment on above: Performed By: #### C BC #### [facility] [address] [place], [place] [address] Helio Erendira Platelets (Bld) [#/Vol] 200 103/ul Normal 150-450 [facility] Comment on above: Performed By: #### C BC #### [facility] [address] [place], [place] [address] Helio Erendira RBC (Bld) [#/Vol] 4.23 106/ul Normal 4.20-5.40 [facility] Comment on above: Performed By: #### C BC #### [facility] [address] [place] [address] Helio Erendira WBC (Bld) [#/Vol] 8.8 103/ul Normal 4.0-11.0 [facility] Comment on above: Performed By: #### C BC #### [facility] [address] [place], [place] [id number] Helio Erendira CULTURE URINEon 11-21-2019 CULTURE URINE Culture Observations: No growth Normal [facility] Comment on above: Performed By: #### A ROMY #### [facility] [address] [place], [place] [phone] Helio Erendira DRUG SCREEN RAPID (URINE)on 11-21-2019 AMP Negative Normal NEGATIVE [facility] Comment on above: Performed By: #### D CHEMA, UAMIC #### [facility] [address] [place], [place] [id number] Helio Erendira BAR Negative Normal NEGATIVE [facility] Comment on above: Performed By: #### D CHEMA, UAMIC #### [facility] [address] [place], [place] [phone] Helio Erendira BUP Negative Normal NEGATIVE [facility] Comment on above: Performed By: #### D CHEMA, UAMIC #### [facility] [address] [place], [place] [phone] Helio Erendira BZO Negative Normal NEGATIVE [facility] Comment on above: Performed By: #### D CHEMA, UAMIC #### [facility] [address] [place], [place] [phone] Helio Erendira JAYLA Negative Normal NEGATIVE [facility] Comment on above: Performed By: #### Roque BEAR UAMIC #### [facility] [address] [place] [address] Helio Krishna CUT-OFFS SEE BELOW Normal [facility] Comment on above: Result Comment: AMP (Amphetamine): [...] #### Roque BEAR UAMIC #### [facility] [address] [place] [address] Helio Guen DRUG CUT HEADER DRUG CLASS TEST SYSTEM CUT-OFF CONCENTRATIONS ARE FOLLOWS: Normal [facility] Comment on above: Performed By: #### Roque BEAR UAMIC #### [facility] [address] [place] [address] Helio Erendira mAMP Negative Normal NEGATIVE [facility] Comment on above: Performed By: #### Roque BEAR UAMIC #### [facility] [address] [place] [address] Helioari Krishna MTD Negative Normal NEGATIVE [facility] Comment on above: Performed By: #### Roque BEAR UAMIC #### [facility] [address] [place] [address] Helio Erendira OPI Negative Normal NEGATIVE [facility] Comment on above: Performed By: #### Roque BEAR UAMIC #### [facility] [address] [place] [address] Helio Erendira OXY Negative Normal NEGATIVE [facility] Comment on above: Performed By: #### Roque BEAR UAMIC #### [facility] [address] [address] Helioari Krishna PCP Negative Normal NEGATIVE [facility] Comment on above: Performed By: #### D CHEMA, UAMIC #### [facility] [address] [place] [address] Helio Krishna PPX Negative Normal NEGATIVE [facility] Comment on above: Performed By: #### D CHEMA, UAMIC #### [facility] [address] [address] Helioari Krishna TCA Negative Normal NEGATIVE [facility] Comment on above: Performed By: #### D CHEMA, UAMIC #### [facility] [address] [place] [address] Helio Krishna THC Negative Normal NEGATIVE [facility] Comment on above: Performed By: #### D CHEMA UAMIC #### [facility] [address] [place] [address] Helio Krishna GLYCOHEMOGLOBIN A1Con 2019 Glucose [Mass/Vol] 94 mg/dL Normal [facility] Comment on above: Performed By: #### A 1C #### [facility] [address] [place] [address] Helio Krishna HbA1c (Bld) [Mass fraction] 4.9 % Normal <=6.0 [facility] Comment on above: Performed By: #### A 1C #### [facility] [address] [place] [address] Helio Krishna PREG QUANT HCGon 11-21-2019 HCG QUANT 37419.00 mIU/mL Normal [facility] Comment on above: Performed By: #### P REGQNT #### [facility] [address] [place] [address] Helio Krishna HCG RANGE SEE BELOW Normal [facility] Comment on above: Result Comment: 5-50 0-1 WEEK 40-300 1-2 WEEKS 100-1,000 2-3 WEEKS 500-6,000 3-4 WEEKS 5,000-200,000 1-2 MONTHS 10,000-100,000 2-3 MONTHS 3,000-50,000 2ND TRIMESTER 1,000-50,000 3RD TRIMESTER Performed By: #### P REGQNT #### [facility] [address] [place] [address] Helio Erendira TYPE AND SCREENon 11-21-2019 TYPE AND SCREEN Negative Normal [facility] Comment on above: Performed By: #### T NS #### [facility] [address] [place] [address] Helio Erendira UA RANDOM W/MICROSCOPICon Bacteria LM.HPF (Urine sed) [#/Area] TRACE Normal NONE SEEN [facility] Comment on above: Performed By: #### D CHEMA UAMIC #### [facility] [address] [place] [address] Helio Erendira Bilirubin [Mass/Vol] Negative Normal NEGATIVE [facility] Comment on above: Performed By: #### Roque BEAR UAMIC #### [facility] [address] [place] [address] Helio Erendira BLOOD Negative Normal NEGATIVE [facility] Comment on above: Performed By: #### Roque BEAR UAMIC #### [facility] [address] [place] [address] Helio Erendira CAST NONE SEEN Normal NONE SEEN [facility] Comment on above: Performed By: #### Roque BEAR UAMIC #### [facility] [address] [place] [address] Helio Erendira Clarity (U) CLEAR Normal [facility] Comment on above: Performed By: #### Roque BEAR UAMIC #### [facility] [address] [place] [address] Helio Erendira Color (U) LT. YELLOW Normal YELLOW [facility] Comment on above: Performed By: #### Roque BEAR UAMIC #### [facility] [address] [place] [address] Helio Erendira Crystals LM Nom (Urine sed) NONE SEEN Normal NONE SEEN [facility] Comment on above: Performed By: #### Roque BEAR UAMIC #### [facility] [address] [place], [place] [address] Helio Erendira Epithelial cells LM.HPF (Urine sed) [#/Area] RARE Normal [facility] Comment on above: Performed By: #### D CHEMA, UAMIC #### [facility] [address] [place] [address] Helio Erendira Glucose [Mass/Vol] Negative Normal NEGATIVE [facility] Comment on above: Performed By: #### D CHEMA, UAMIC #### [facility] [address] [place] [address] Helio Erendira Ketones Ql (U) Negative Normal NEGATIVE [facility] Comment on above: Performed By: #### D CHEMA UAMIC #### [facility] [address] [place], [place] [phone] Helio Erendira MUCOUS NONE SEEN Normal NONE SEEN [facility] Comment on above: Performed By: #### D CHEMA, UAMIC #### [facility] [address] [place] [address] Helio Erendira Nitrite Ql (U) Negative Normal NEGATIVE [facility] Comment on above: Performed By: #### D CHEMA, UAMIC #### [facility] [address] [place] [address] Helio Erendira pH (Bld) 7.0 Normal 5-9 [facility] Comment on above: Performed By: #### D CHEMA, UAMIC #### [facility] [address] [place], [place] [phone] Helio Erendira Protein [Mass/Vol] Negative Normal [facility] Comment on above: Performed By: #### D CHEMA, UAMIC #### [facility] [address] [place], [place] [phone] Helio Erendira RBC (Bld) [#/Vol] NONE SEEN Normal 0-2 [facility] Comment on above: Performed By: #### D CHEMA, UAMIC #### [facility] [address] [place] [address] Helio Erendira SPEC GRAVITY 1.010 Normal 1.005-<=1.025 [facility] Comment on above: Performed By: #### D RUGRPD, UAMIC #### [facility] [address] [place], [place] [address] Helioari Krishna Urobilinogen Qn (U) 0.2 EU/dl Normal [facility] Comment on above: Performed By: #### D RUGRPD, UAMIC #### [facility] [address] [place], [place] [address] Helio Erendira WBC (Bld) [#/Vol] SMALL Normal NEGATIVE [facility] Comment on above: Performed By: #### D RUGRPD, UAMIC #### [facility] [address] [place], [place] [address] Helio Erendira WBC (Bld) [#/Vol] 2-5 Normal NONE SEEN [facility] Comment on above: Performed By: #### D RUGRPD, UAMIC #### [facility] [address] [place], [place] [address] Helio Erendira US PREG <14 WKSon 11-05-2019 US PREG <14 WKS Patient: SANGEETHA MELGOZA Exam Date: 11/05/2019 : 1995 Gender:F Ordering : DR. RAMONA JIMÉNEZ . Admission #: [id number] Family : Order #: [id number] CLICK HERE TO VIEW EXAM RADIOLOGY REPORT [...] of 11 weeks, 2 days Dictated by: Frankei Hendrickson M.D. on 11/06/2019 at 14:26 Approved by: Frankie Hendrickson M.D. on 11/06/2019 at 14:27 Normal [facility] ABO AND RH TYPEon 10-28-2019 ABO and Rh group Nom (Bld) ABO Rh Typing A Rh Positive Normal [facility] Comment on above: Performed By: #### A ROMY #### [facility] [address] [place], [place] [address] Helio Erendira PREG QUANT HCGon 10-28-2019 HCG QUANT 43256.00 mIU/mL Normal [facility] Comment on above: Result Comment: Veri fied by dilution Performed By: #### P REGQNT #### [facility] [address] [place], [place] [address] Helio Erendira HCG RANGE SEE BELOW Normal [facility] Comment on above: Result Comment: 5-50 0-1 WEEK 40-300 1-2 WEEKS 100-1,000 2-3 WEEKS 500-6,000 3-4 WEEKS 5,000-200,000 1-2 MONTHS 10,000-100,000 2-3 MONTHS 3,000-50,000 2ND TRIMESTER 1,000-50,000 3RD TRIMESTER Performed By: #### P REGQNT #### [facility] [address] [place], [place] [address] Helio Krishna Vital Signs Date Time Vital Sign Value Performing Clinician Facility 06-01-2025 10:23-0400 Body mass index (BMI) [Ratio] 34.82 kg/m2 [employer] Work Phone: [facility] 06-01-2025 10:23-0400 Body weight 86.36 kg [employer] Work Phone: [facility] 06-01-2025 10:23-0400 Diastolic blood pressure 72 mm[Hg] [employer] Work Phone: [facility] 06-01-2025 10:23-0400 Systolic blood pressure 104 mm[Hg] Monico Bethany [employer] Work Phone: [facility] 05-04-2025 08:57-0400 Body mass index (BMI) [Ratio] 34.17 kg/m2 Sarita ROBERTO Work Phone: [facility] 05-04-2025 08:57-0400 Body weight 84.73 kg Sarita Chicago PA Work Phone: [facility] 05-04-2025 08:57-0400 Diastolic blood pressure 70 mm[Hg] Sarita Elio PA Work Phone: [facility] 05-04-2025 08:57-0400 Systolic blood pressure 120 mm[Hg] Sarita [place] PA Work Phone: [facility] 04-06-2025 10:46-0400 Body mass index (BMI) [Ratio] 32.7 kg/m2 Sarita Elio PA Work Phone: [facility] 04-06-2025 10:46-0400 Body weight 81.1 kg Sarita [place] PA Work Phone: [facility] 04-06-2025 10:46-0400 Diastolic blood pressure 70 mm[Hg] Sarita Elio PA Work Phone: [facility] 04-06-2025 10:46-0400 Systolic blood pressure 110 mm[Hg] Sarita Elio PA Work Phone: [facility] 03-03-2025 10:24-0400 Body mass index (BMI) [Ratio] 32.58 kg/m2 Monico Bethany DO Work Phone: [facility] 03-03-2025 10:24-0400 Body weight 80.8 kg Monico Bethany DO Work Phone: [facility] 03-03-2025 10:24-0400 Diastolic blood pressure 64 mm[Hg] Monico Bethany DO Work Phone: [facility] 03-03-2025 10:24-0400 Systolic blood pressure 112 mm[Hg] Monico Bethany DO Work Phone: [facility] 02-13-2025 10:16-0400 Body height 157.5 cm [facility] Nurse [facility] 02-13-2025 09:52-0400 Body mass index (BMI) [Ratio] 31.64 kg/m2 [facility] Nurse [facility] 02-13-2025 09:52-0400 Body weight 78.47 kg [facility] 02-13-2025 09:52-0400 Diastolic blood pressure 80 mm[Hg] [facility] 02-13-2025 09:52-0400 Systolic blood pressure 126 mm[Hg] [facility] 09-13-2024 18:18-0500 Body temperature 97.9 [degF] Evangelist Jenkins [facility] 09-13-2024 18:18-0500 Diastolic blood pressure 65 mm[Hg] Evangelist Jenkins MD Work Phone: [facility] 09-13-2024 18:18-0500 Systolic blood pressure 122 mm[Hg] Evangelist Jenkins MD Work Phone: [facility] 09-13-2024 18:17-0500 Body mass index (BMI) [Ratio] 32.92 kg/m2 Evangelist Jenkins MD Work Phone: [facility] 09-13-2024 18:17-0500 Body weight 81.65 kg Evangelist Jenkins MD Work Phone: [facility] 09-13-2024 18:17-0500 Heart rate 78 /min Evangelist Jenkins MD Work [facility]: [facility] 09-13-2024 18:17-0500 Respiratory rate 16 /min Evangelist Jenkins MD Work Phone: [facility] 09-13-2024 18:17-0500 SaO2% (BldA) [Mass fraction] 98 % Evangelist Jenkins MD Work Phone: [facility] 06-10-2024 09:10-0400 Body weight 84.73 kg Monico Bethany DO Work Phone: [facility] 06-10-2024 09:10-0400 Diastolic blood pressure 64 mm[Hg] Monico Bethany DO Work Phone: [facility] 06-10-2024 09:10-0400 Systolic blood pressure 102 mm[Hg] Monico Bethany DO Work Phone: [facility] 06-03-2024 10:10-0400 Body weight 84.73 kg Sarita Elio PA Work Phone: [facility] 06-03-2024 10:10-0400 Diastolic blood pressure 64 mm[Hg] Sarita Elio PA Work Phone: [facility] 06-03-2024 10:10-0400 Systolic blood pressure 110 mm[Hg] Sarita Chicago PA Work Phone: [facility] 05-27-2024 10:47-0400 Body weight 85 kg Monico Bethany DO Work Phone: [facility] 05-27-2024 10:47-0400 Diastolic blood pressure 60 mm[Hg] Monico Bethany DO Work Phone: [facility] 05-27-2024 10:47-0400 Systolic blood pressure 114 mm[Hg] Monico Bethany DO Work Phone: [facility] 05-13-2024 08:40-0400 Body weight 83.46 kg Sarita Elio PA Work Phone: [facility] 05-13-2024 08:40-0400 Diastolic blood pressure 74 mm[Hg] Sarita Elio PA Work Phone: [facility] 05-13-2024 08:40-0400 Systolic blood pressure 122 mm[Hg] Sarita Elio PA Work Phone: [facility] 09-25-2023 13:12-0500 Body height 157.5 cm [facility] 09-25-2023 13:12-0500 Body mass index (BMI) [Ratio] 28.72 kg/m2 [facility] 09-25-2023 13:12-0500 Body weight 71.22 kg [facility] 09-25-2023 13:12-0500 Diastolic blood pressure 86 mm[Hg] [facility] 09-25-2023 13:120500 Systolic blood pressure 116 mm[Hg] [facility] Manager [employer] [facility] Encounters Encounter Date Encounter Type Care Provider Facility Start: 06-01-2025 End: 06-01-2025 Clinisync Result Encounter Monico Bethany DO Work Phone: [facility] Unsolicited Start: 06-01-2025 End: 06-01-2025 Clinisync Result Encounter Monico Bethany DO Work Phone: [facility] Unsolicited Start: 06-01-2025 End: 06-01-2025 Office outpatient visit 15 minutes Monico Bethany DO Work Phone: [facility] Comment on above: 28 weeks gestation o f ([facility]); Third trimester ([facility]) Start: 06-01-2025 End: 06-01-2025 ambulatory MONICO BETHANY Not Available Start: 05-07-2025 End: 05-07-2025 Clinisync Result Encounter Sarita ROBERTO Work Phone: [facility] Unsolicited Start: 05-07-2025 End: 05-07-2025 Clinisync Result Encounter Sarita ROBERTO Work Phone: [facility] Unsolicited Start: 05-04-2025 End: 05-04-2025 Office outpatient visit 15 minutes Sarita ROBERTO Work Phone: [facility] [place] [facility] Comment on above: 24 weeks gestation o f ([facility]); Second trimester ([facility]); Diabetes mellitus screening Start: 05-04-2025 End: 05-04-2025 ambulatory SARITA BALLARD Not Available Start: 04-06-2025 End: 04-06-2025 Office outpatient visit 15 minutes Sarita ROBERTO Work Phone: [facility] Comment on above: Second trimester pre gnancy ([facility]); 20 weeks gestation of ([facility]) Start: 04-06-2025 End: 04-06-2025 ambulatory SARITA BALLARD [...] on above: 15 weeks gestation o f ([facility]); Second trimester fetus ([facility]); Screening, , for anatomic survey ([facility]) Start: 03-03-2025 End: 03-03-2025 ambulatory MONICO BETHANY [...] Unsolicited Start: 01-14-2025 End: 01-14-[address] [facility] Start: 01-14-2025 End: 01-14-2025 Subsequent hospital visit by physician Sarita Bedoya LOAN WORKOUT OFFICER - [employer] HAMMER OPERATOR Work Phone: [facility] Start: 09-13-2024 End: 09-13-2024 Emergency department patient visit Evangelist Jenkins MD Work Phone: [facility] Comment on above: [...] on above: Third trimester preg lamine Start: 05-27-2024 End: 05-27-2024 Bamboo flowsheet Monico Bethany DO Work Phone: [facility] Start: 05-27-2024 End: 05-27-2024 Bamboo flowsheet Monico Bethany DO Work Phone: [facility] Start: 05-27-2024 End: 05-27-2024 Office outpatient visit 15 minutes Monico Bethany DO Work Phone: [facility] Comment on above: 36 weeks gestation o f ; Third trimester Start: 05-13-2024 End: 05-13-2024 Bamboo flowsheet Sarita ROBERTO Work Phone: [facility] Start: 05-13-2024 End: 05-13-2024 Bamboo flowsheet Sarita ROBERTO Work Phone: [facility] Start: 05-13-2024 End: 05-13-2024 Office outpatient visit 15 minutes Sarita ROBERTO Work Phone: [facility] Comment on above: Third trimester preg lamine; size inconsistent with dates Start: 01-28-2024 End: 01-28-2024 Telephone encounter Sarita Salomon RDMS, RVT [facility] Start: 09-25-2023 End: 09-25-2023 ambulatory SARITA BEDOYA [facility] Start: 09-25-2023 End: 09-25-2023 Office outpatient new 30 minutes [facility] Ob Manager Quality Systems [facility] [place] Comment on above: Encounter for IUD re moval (Primary Dx) Start: 05-21-2023 End: 05-21-2023 Subsequent hospital visit by physician Sarita Bedoya LOAN WORKOUT OFFICER - AIR HAMMER OPERATOR Work Phone: [facility] Laboratory Start: 04-25-2023 ambulatory Sarita Lien Biswasu t LOAN WORKOUT OFFICER-GLOBAL COMMODITY MANAGER Facility:[facility] Start: 04-16-2023 End: 04-17-2023 ambulatory Sarita Basurtoemproselyn LOAN WORKOUT OFFICER-GLOBAL COMMODITY MANAGER Facility:[facility] Start: 03-08-2023 End: 03-09-2023 ambulatory Sarita Lien Basurtoemproselyn LOAN WORKOUT OFFICER-GLOBAL COMMODITY MANAGER Facility:[facility] Start: 05-25-2020 End: 05-26-2020 Evaluation and management of inpatient RAMONA JIMÉNEZ Facility:H1 Start: 05-18-2020 End: 05-19-2020 Patient encounter procedure RAMONA OUMAR Facility:H1 Start: 05-03-2020 End: 05-03-2020 Patient encounter [...] 11-21-2019 End: 11-22-2019 Patient encounter procedure RAMONA OUMAR Facility:H1 Start: 11-05-2019 End: 11-06-2019 Patient encounter procedure RAMONA JIMÉNEZ Facility:H1 Start: 10-28-2019 End: 10-29-2019 Patient encounter procedure RAMONA JIMÉNEZ Facility:H1 Start: 05-16-2016 End: 05-16-2016 Ambulatory Ebeleclorne Upton Facility:ARM Procedures Date Procedure Procedure Detail Performing Clinician Start: 06-01-2025 Urnls dip stick/tabl et rgnt non-auto w/o micrscp Monico Bethany DO Work Phone: Start: 06-01-2025 ALL CBC WITH AUTO DIFF Monico Bethany DO Work Phone: Start: 05-07-2025 ALL CBC WITH AUTO DIFF [...] Start: 01-14-2025 Gonadotropin chorion ic quantitative Monico Smis MD Work Phone: Start: 09-13-2024 Radex fingr [...] assa y tissue culture Sarita Costello Aureliano LOAN WORKOUT OFFICER - AIR HAMMER OPERATOR Work Phone: Start: 05-26-2020 Delivery of Products [...] Vaccines (3 - Td or Tdap) [facility] Start: 09-23-2032 DTaP/Tdap/Td vaccine (3 - Td or Tdap) DTaP/Tdap/Td vaccine (3 - Td or Tdap) [facility] Start: 06-15-2025 End: 06-15-2025 Patient encounter procedure 06/15/2025 8:50 AM EDT Routine [facility] [address] [facility] [place] [phone] Laquita Little, INSULATION MECHANIC [address] [place] [phone] ANALIA [place] OBGORAN Start: 06-01-2025 End: 06-01-2025 Patient encounter procedure 06/01/2025 10:20 AM EDT Routine [facility] [address] [place] [phone] Monico Sims DO [address] [place] [address] ANALIA [place] OBGORAN Start: 06-01-2025 End: 06-01-2025 Professional / ancillary services management 06/01/2025 9:30 AM EDT Ancillary Procedure ANALIA [place] OBGYN [address] [phone] SHONAS Von OBGYN Start: 05-04-2025 End: 05-04-2026 CBC panel - Blood by Automated count CBC Lab Routine Diabetes mellitus screening Expected: 05/04/2025 (Approximate), Expires: 05/04/2026 [facility] Work Phone: Comment on above: Expected: 05/04/2025 (Approximate), Expires: 05/04/2026 Start: 05-04-2025 End: 05-04-2026 Measurement of glucose 1 hour after glucose challenge for glucose tolerance test Glucose tolerance, 1 hour Lab Routine Diabetes mellitus screening Expected: 05/04/2025 (Approximate), Expires: 05/04/2026 [facility] Comment on above: Expected: 05/04/2025 (Approximate), Expires: 05/04/2026 Start: 05-04-2025 End: 05-04-2025 Patient encounter procedure 05/04/2025 10:40 AM EDT Routine [facility] [address] [place] [phone] Sarita Ballard PA [address] [place], [place] [phone] [facility] Start: 04-17-2025 Influenza vaccination Flu vacc ine (Season Ended) [facility] Start: 04-06-2025 End: 04-06-2025 Patient encounter procedure 04/06/2025 10:30 AM EDT Routine [facility] [address] [place] [phone] Sarita Ballard, PA [address] [place], [place] [phone] [facility] Start: 04-06-2025 End: 04-06-2025 Professional / ancillary services management 04/06/2025 9:30 AM EDT Ancillary Procedure [facility] [address] [place] [phone] [facility] Start: 03-03-2025 End: 06-03-2025 Alpha fetoprotein, maternal Alpha fetoprotein, maternal Lab Routine 15 weeks gestation of ([facility]) Second trimester fetus ([facility]) Expected: 03/03/2025 (Approximate), Expires: 06/03/2025 [facility] Work Phone: Comment on above: Expected: 03/03/2025 (Approximate), Expires: 06/03/2025 Start: 03-03-2025 End: 06-03-2025 US for US OB 14+ weeks anatomy scan Imaging Routine Screening, , for anatomic survey ([facility]) Expected: 03/03/2025, Expires: 06/03/2025 [facility] Healthcare Comment on above: Expected: 03/03/2025 , Expires: 06/03/2025 Start: 03-03-2025 End: 03-03-2025 Patient encounter procedure [facility] Comment on above: Arrived Start: 02-13-2025 End: 02-13-2026 ABO/Rh ABO/Rh Lab Routine Missed menses , unspecified gestational age Expected: 02/13/2025 (Approximate), Expires: 02/13/2026 [facility] Healthcare Comment on above: Expected: 02/13/2025 (Approximate), Expires: 02/13/2026 Start: 02-13-2025 End: 02-13-2026 Blood type and Indirect antibody screen panel - Blood Type and screen Lab Routine Missed menses , unspecified gestational age Expected: 02/13/2025 (Approximate), Expires: 02/13/2026 [facility] Healthcare Comment on above: Expected: 02/13/2025 (Approximate), Expires: 02/13/2026 Start: 02-13-2025 End: 02-13-2026 Drugs of abuse panel - Urine by Screen method Rapid drug screen, urine Lab Routine , unspecified gestational age Encounter for supervision of normal first in first trimester Expected: 02/13/2025 (Approximate), Expires: 02/13/2026 [facility] Healthcare Comment on above: Expected: 02/13/2025 (Approximate), Expires: 02/13/2026 Start: 02-05-2025 End: 05-08-2025 US Pelvis transvaginal US OB transvaginal Imaging Routine Missed menses Expected: 02/05/2025, Expires: 05/08/2025 [facility] Work Phone: Comment on above: Expected: 02/05/2025 , Expires: 05/08/2025 Start: 09-25-2024 Adult BMI Screening Adult BMI Screen ing [facility] Start: 09-25-2024 Tobacco Screening Tobacco Screening [facility] Start: 06-10-2024 End: 06-10-2024 Patient encounter [...] Vaccine ( season) COVID-19 Vaccine ( season) [facility] Start: 05-18-2024 COVID-19 Vaccine ( season) COVID-19 Vaccine ( season) [facility] Start: 05-18-2024 Influenza vaccination Influenza Vacc ine [facility] Start: 05-13-2024 End: 05-13-2025 US for US OB SCAN FOR GROWTH Imaging Routine size inconsistent with dates Expected: 05/13/2024 (Approximate), Expires: 05/13/2025 [facility] Work Phone: Comment on above: Expected: 05/13/2024 (Approximate), Expires: 05/13/2025 Start: 05-13-2024 End: 05-13-2024 Patient encounter procedure 05/13/2024 8:50 AM EDT Routine [facility] [address] [place] [phone] Sarita Ballard PA [address] [place] [address] Arrived [facility] Comment on above: Arrived Start: 04-17-2024 Influenza vaccination Flu vaccine (# 1) [facility] Start: 05-18-2023 Influenza vaccination Influenza Vacc ine [facility] Start: 04-17-2023 Influenza vaccination Flu vaccine (# 1) [facility] Start: 12-04-2016 Screening for malign ant neoplasm of cervix Pap smear [facility] Start: 12-04-2014 Hepatitis B vaccine (1 of 3 - 19+ 3-dose series) Hepatitis B vaccine (1 of 3 - 19+ 3-dose series) [facility] Start: 12-04-2013 Adult BMI Follow Up Plan Adult BMI Follow Up Plan [facility] Start: 12-04-2013 Hepatitis C screening Hepatitis C sc reen [facility] Start: 12-04-2010 HIV screening HIV screen [facility] Start: 12-04-2008 Varicella vaccine (1 of 2 - 13+ 2-dose series) Varicella vaccine (1 of 2 - 13+ 2-dose series) [facility] Start: 2007 Depression Screen Depression Screen [facility] Start: 2007 Depression Screening Depression Scre ening [facility] Start: 12-04-1996 Varicella vaccine (1 of 2 - 2-dose childhood series) Varicella vaccine (1 of 2 - 2-dose childhood series) [facility] Start: 06-06-1996 COVID-19 Vaccine (#1) COVID-19 Vacci ne (#1) [facility] Bacteria identified in Urine by Culture Urine culture Microbiology Routine Missed menses Ordered: 02/13/2025 [facility] Comment on above: Ordered: 02/13/2025 CBC W Auto Different ial panel - Blood CBC and differential Lab Routine Missed menses , unspecified gestational age Ordered: 02/13/2025 [facility] Comment on above: Ordered: 02/13/2025 End: 05-21-2023 Gastrointestinal Panel, Molecular [facility] Work Phone: Comment on above: Once for 1 Occurrenc es starting 05/21/2023 until 05/21/2023 Hemoglobin A1c/Hemoglobin.total in Blood Hemoglobin A1c Lab Routine Missed menses , unspecified gestational age Ordered: 02/13/2025 [facility] Comment on above: Ordered: 02/13/2025 Hepatitis B virus de la rosa rface Ag [Presence] in Serum or Plasma by Immunoassay Hepatitis B surface antigen Lab Routine Missed menses , unspecified gestational age Ordered: 02/13/2025 [facility] Comment on above: Ordered: 02/13/2025 Hepatitis C virus Ab [Presence] in Serum or Plasma by Immunoassay Hepatitis C antibody Lab Routine Missed menses , unspecified gestational age Ordered: 02/13/2025 [facility] Comment on above: Ordered: 02/13/2025 HIV-1/HIV-2 antigen/antibody combination immunoassay HIV-1 and HIV-2 antibodies Lab Routine Missed menses , unspecified gestational age Ordered: 02/13/2025 [facility] Comment on above: Ordered: 02/13/2025 End: 05-21-2023 O&P PANEL (TRAVEL ASSOCIATED) #1 [facility] Comment on above: Once for 1 Occurrenc es starting 05/21/2023 until 05/21/2023 Reagin Ab [Presence] in Serum by RPR RPR Lab Routine Missed menses , unspecified gestational age Ordered: 02/13/2025 [facility] Comment on above: Ordered: 02/13/2025 Rubella antibody, IgG Rubella an tibody, IgG Lab Routine Missed menses , unspecified gestational age Ordered: 02/13/2025 [facility] Comment on above: Ordered: 02/13/2025 US Pelvis transvaginal US OB tra nsvaginal Imaging Routine Missed menses 02/13/2025 9:51 AM EDT [facility] Immunizations Immunization Date Immunization Notes Care Provider Fa perty 09-23-2022 tetanus toxoid, redu angelina diphtheria toxoid, and acellular pertussis vaccine, adsorbed [facility] Payers Date Payer Category Payer Medicaid [place] [employer] [facility] [id number] 2023-Present [address] [address] [place] [address] [id number] 2023 Medicaid (Managed Care) ELIZABETH MOLINA [id number] 2020 Unknown 2016 Private Health Insurance [id number] 1995 Unknown [id number] 2.0.1.050725.3.579.2. 593 1995 Unknown [id number] 2.840.1.472008.3.579.2. 593 1995 Unknown [id number] ..1.963378.3.579.2. 593 1995 Unknown [id number] 2.840.1.045030.3.579.2. 593 1995 Unknown [id number] 2.840.1.183442.3.579.2. 593 1995 Unknown [id number] 2.840.1.177655.3.579.2. 593 1995 Unknown [id number] 2.840.1.798234.3.579.2. 593 1995 Unknown [id number] 2.16.840.1.272270.3.579.2. 593 1995 Unknown [id number] 2.16.840.1.739431.3.579.2. 593 1995 Unknown [id number] 2.16.840.1.851909.3.579.2. 593 1995 Unknown [id number] 2.16.840.1.107408.3.579.2. 593 1995 Unknown [id number] 2.16.840.1.850636.3.579.2. 196 1995 Unknown [id number] 2.16.840.1.511376.3.579.2. 196 1995 Unknown [id number] 2.16.840.1.843392.3.579.2. 196 1995 Unknown [id number] 2.16.840.1.585446.3.579.2. 196 1995 Unknown [id number] 2.16.840.1.844128.3.579.2. 1286 1995 Unknown [id number] 2.16.840.1.177919.3.579.2. 173 1995 Unknown [id number] 2.16.840.1.586595.3.579.2. 173 1995 Unknown [id number] 2.16.840.1.741053.3.579.2. 1259 1995 Unknown [id number] 2.16.840.1.414059.3.579.2. 1259 1995 Unknown [id number] 2.16.840.1.612033.3.579.2. 1259 1995 Unknown [id number] 2.16.840.1.400968.3.579.2. 1259 1995 Unknown [id number] 2.16.840.1.391013.3.579.2. 1259 1995 Unknown [id number] 2.16.840.1.062142.3.579.2. 1259 1995 Unknown [id number] 2.16.840.1.543845.3.579.2. 1259 1995 Unknown [id number] 2.16.840.1.235743.3.579.2. 1259 1995 Unknown [id number] 2.16.840.1.363791.3.579.2. 1259 1995 Unknown [id number] 2.16.840.1.876106.3.579.2. 1259 1959 Unknown [id number] Social History Date Type Detail Facility Start: 09-23-2022 End: 04-16-2023 Tobacco smoking status MDIS Never smoked tobacco [facility] Start: 09-23-2022 End: 04-16-2023 Tobacco use and exposure Smokeless tobacco non-user [facility] Start: 1995 Sex Assigned At Not on file B ON [facility] Tobacco smoking status MDIS Tobacco smoking consumption unknown [facility] Start: 10-02-2023 [facility] Start: 09-23-2022 End: 04-16-2023 Gender identity Not on file [facility] Start: 09-23-2022 End: 04-16-2023 History of Social function [facility] Read-Only, Retired: Physical Abuse Denies [facility] Start: 09-25-2023 Alcohol intake Ex-drinker (finding) [facility] Start: 04-28-2019 Sex Female (finding) [facility] Clinical Notes 09-25-2023 to 06-01-2025 Monico Sims DO - 06/01/2025 10:20 AM PARDEEP Campo - 05/04/2025 9:20 AM PARDEEP Campo - 04/06/2025 10:40 AM Richard Martinez LPN - 03/03/2025 9:50 AM EDTDischarge InstructionsAttachments Note Date & Type Note Facility 06-01-2025 History of Presen t illness Narrative Reason for Appointment: Patient ID: Sangeetha Melgoza is a 29 y.o. female who presents for Routine Visit Patient presents today for Return OB appointment. Current Medications: has a current medication list which includes the following prescription(s): iron polysaccharides and vit-fe fumarate-fa. Medical History: Active Ambulatory Problems Diagnosis Date Noted Missed menses 12/11/2023 15 weeks gestation of ([facility]) 03/03/2025 Second trimester fetus ([facility]) 03/03/2025 Resolved Ambulatory Problems Diagnosis Date Noted [...] nursing note reviewed. Exam conducted with a healthcare liaison present. Vitals: Estimated body mass index is 34.82 kg/m as calculated from the following: Height as of 02/13/25: 5' 2 . Weight as of this encounter: 190 lb 6.4 oz. BP: 104/72 Patient's last menstrual period was 11/12/2024. Assessment/Plan Encounter Diagnosis: ICD-10-CM 1. 28 weeks gestation of ([facility]) Z3A.28 Urine dip 2. Third trimester ([facility]) Z34.93 Urine dip Return OB: Patient presents [...] week for routine OB appointment. Documented by Monico Sims DO on behalf of: Monico Sims DO documented in this encounter [facility] 05-04-2025 History of Presen t illness Narrative [...] Missed menses 12/11/2023 15 weeks gestation of ([facility]) 03/03/2025 Second trimester fetus ([facility]) 03/03/2025 Resolved Ambulatory Problems Diagnosis Date Noted [...] PLAN ICD-10-CM 1. 24 weeks gestation of ([facility]) Z3A.24 POCT urinalysis dipstick manually resulted 2. Second trimester ([facility]) Z34.92 POCT urinalysis dipstick manually resulted 3. [...] of: PARDEEP Joaquin documented in this encounter [facility] 04-06-2025 History of Presen t illness [...] Missed menses 12/11/2023 15 weeks gestation of ([facility]) 03/03/2025 Second trimester fetus ([facility]) 03/03/2025 Resolved Ambulatory Problems Diagnosis Date Noted [...] ASSESSMENT & PLAN ICD-10-CM 1. Second trimester ([facility]) Z34.92 2. 20 weeks gestation of ([facility]) Z3A.20 Return OB: Patient presents today for a routine obstetrics appointment. Patient is currently 20w5d . Patient states she is doing well but has complaints of being tired due to current . Patient has verbalizes frequent movement. No orders of the defined types were placed in this encounter. Patient will be referred to mfm for possible amniotic band found on US today Follow Up: Patient is to return to office in 4 week for routine OB appointment. Documented by PARDEEP Joaquin on behalf of: PARDEEP Joaquin documented in this encounter [facility] 03-03-2025 History of Presen t illness [...] Missed menses 12/11/2023 15 weeks gestation of ([facility]) 03/03/2025 Second trimester fetus ([facility]) 03/03/2025 Resolved Ambulatory Problems Diagnosis Date Noted [...] nursing note reviewed. Exam conducted with a healthcare liaison present. Vitals: Estimated body mass index is 32.58 kg/m as calculated from the following: Height as of 25: 5' 2 . Weight as of this encounter: 178 lb 1.9 oz. BP: 112/64 No LMP recorded (lmp unknown). Patient is . ASSESSMENT & PLAN ICD-10-CM 1. 15 weeks gestation of ([facility]) Z3A.15 Alpha fetoprotein, maternal Alpha fetoprotein, maternal POCT urinalysis dipstick manually resulted 2. Second trimester fetus ([facility]) Z34.92 Alpha fetoprotein, maternal Alpha fetoprotein, [...] or undercooked meat, and stay away from [facility]. Patient has been consulted regarding any further [...] Monico Sims DO documented in this encounter [facility] 02-13-2025 History of Presen t illness [...] or undercooked meat, and stay away from [facility]. Patient has also been advised to not [...] Rosana Montague MA documented in this encounter [facility] 09-13-2024 [facility] Discharg Evangelist Scherer MD - 09/13/2024 [...] be sent through Care Everywhere.Hand Laceration: Stitches (Japanese)documented in this encounter [facility] 06-10-2024 History of Presen t illness [...] nursing note reviewed. Exam conducted with a healthcare liaison present. Vitals: There is no height or [...] Monico Sims DO documented in this encounter [facility] 06-03-2024 History of Presen t illness [...] of: PARDEEP Joaquin documented in this encounter [facility] 05-27-2024 History of Presen t illness [...] nursing note reviewed. Exam conducted with a healthcare liaison present. Vitals: There is no height or [...] Monico Sims DO documented in this encounter [facility] 05-13-2024 History of Presen t illness [...] of: PARDEEP Joaquin documented in this encounter [facility] 01-28-2024 Miscellaneous Notes Called and spoke to nurse Jacqueline in Dr. Sims's office regarding order sent to [facility]. Order for EFW percentile at 6th percentile on ultrasound done at [facility]. Explained that they used 06/17/24 as the VANGIE on that ultrasound instead of the document VANGIE of 06/24/24. Office called [facility] and they are recalculating the report and sending an addendum. Order can be disregarded. documented in this encounter [facility] 01-28-2024 Telephone encounter Note Called and spoke to nurse Jacqueline in Dr. Sims's office regarding order sent to [facility]. Order for EFW percentile at 6th percentile on ultrasound done at [facility]. Explained that they used 06/17/24 as the VANGIE on that ultrasound instead of the document VANGIE of 06/24/24. Office called [facility] and they are recalculating the report and sending an addendum. Order can be disregarded. [facility] 09-25-2023 History of Presen t illness [...] APRN-CNP 09/25/23 1344 documented in this encounter [facility] Evaluation note Diagnosis Third trimester state, incidental documented in this encounter [facility] HealthcareEvaluation note* Diagnosis Third trimester state, incidental size inconsistent with dates documented in this encounter [facility] HealthcareEvaluation note* Diagnosis 36 weeks gestation of Third trimester state, incidental documented in this encounter [facility] Healthcare[facility] note* Diagnosis Third trimester state, incidental documented in this encounter [facility] note* Diagnosis Laceration of left middle finger without foreign body without damage to nail, initial encounter- Primary [facility] Diagnosis Encounter for IUD removal- Primary [facility] Diagnosis Missed menses , unspecified gestational age Encounter for supervision of normal first in first trimester documented in this encounter [facility] Healthcare[facility] note* Diagnosis 15 weeks gestation of ([facility]) Second trimester fetus ([facility]) Screening, , for anatomic survey ([facility]) Encounter for anatomic survey documented in this encounter [facility] HealthcareEvaluation note* Diagnosis Second trimester ([facility]) state, incidental 20 weeks gestation of ([facility]) [facility]* Diagnosis 24 weeks gestation of ([facility]) Second trimester ([facility]) state, incidental Diabetes mellitus screening Screening for diabetes mellitus documented in this encounter [facility]* Diagnosis 28 weeks gestation of ([facility]) Third trimester ([facility]) state, incidental documented in this encounter [facility] Healthcare[facility]* Attachments The following attachments cannot be sent through Care Everywhere. * How to plan and prepare for a healthy (Japanese) [facility] System[facility]ructionsNot on file documented in [facility] Summary Purpose Family History No [...] section and content) DATE CREATED AUTHOR 03/13/2018 [facility] DATE CREATED AUTHOR AUTHOR'S ORGANIZ ATION 06/02/2020 [facility] DATE CREATED AUTHOR AUTHOR'S ORGANIZ ATION 04/26/2023 [facility] DATE CREATED AUTHOR AUTHOR'S ORGANIZ ATION 09/30/2023 [facility] DATE CREATED AUTHOR AUTHOR'S ORGANIZ ATION 01/15/2025 [facility] DATE CREATED AUTHOR AUTHOR'S ORGANIZ ATION 06/03/2025 [facility] dical Specialists EPIC Care Teams (unrecognized sec tion and content) Wood Lather Relationship Specialty Start Date End Date Sarita Bedoya APRN - CNS [address] [place] [address] PCP - General Certified Clinical Nurse Specialist 04/16/23 Wood Lather Relationship Specialty Start Date End Date aSrita Bedoya APRN - CNS [address] [place] [address] PCP - General Certified Clinical Nurse Specialist 04/16/23 Wood Lather Relationship Specialty Start Date End Date Sarita Bedoya APRN-CNP [address] [facility], [address] [address] PCP - General Nurse Practitioner 05/05/21 Wood Lather Relationship Specialty Start Date End Date Sarita Bedoya, LOAN WORKOUT OFFICER-GLOBAL COMMODITY MANAGER [address] [facility], [address] [address] PCP - General Nurse Practitioner 05/05/21 Wood Lather Relationship Specialty Start Date End Date Sarita Bedoya, LOAN WORKOUT OFFICER - AIR HAMMER OPERATOR [address] [place] [address] PCP - General Certified Clinical Nurse Specialist [...] BE BASED ON THE PRIMARY CLINICAL RECORDS. [employer] provides no warranty or guarantee of the accuracy or completeness of information in this document.
--- OUTSIDE RECORDS SUMMARY | 2025-06-05 08:21 | XMS_ITS | Encounter Summary ---
Author Organization [facility] Address [address] [place] [address] Care Team Providers Care Geology Faculty Member Name Role Phone Unavailable Primary Care Provider Unavailabl e Encounter Details Date Type Department Care Team (Late st Contact Info) Description 06/10/2024 Abstract [facility] [address] [place] [address] Bridger Sims DO [address] [facility] [place] [address] Social History Tobacco Use Types [...] 8:50 AM EDT Routine [facility]NALIA [facility]IL[facility] [address] [place] [address] Laquita Little, DOROTHY [address] [facility] [place] [address] documented as of this encounter Visit Diagnoses Not on filedocumented in this encounter
--- OUTSIDE RECORDS SUMMARY | 2025-06-05 08:21 | XMS_ITS | Encounter Summary ---
Author Organization [facility] Address [address] [place] [place] [address] Care Team Providers Care Synthetic Plasterer Name Role Phone Unavailable Primary Care Provider Unavailabl e Encounter Details Date Type Department Care Team (Late st Contact Info) Description 01/22/2024 Clinisync Result Encounter NOMS External Department Unsolicited Bridger Sims DO [address] [facility] [place] [address] Social History Tobacco Use Types Packs/Day [...] AM EDT Routine [facility] [address] [facility] [address] Laquita Little, IT HELP DESK MANAGER [address] [facility] [place] [address] documented as of this encounter Procedures Procedure Name Priority Date/Time Associated Diagnosis Comments US OB CERVICAL LENGTH 01/22/2024 10:58 AM EDT documented in this encounter Results * US OB CERVICAL LENGTH (01/22/2024 10:58 AM EDT) Anatomical Region Laterality Modality Other 01/22/2024 10:5 8 AM EDT Narrative 01/22/2024 11:00 AM EDT [place] [id number] Ultrasound Report Signed Patient: YAKELIN MELGOZA MR#: [id number] : 1995 Acct:[id number] Age/Sex: 28 / F ADM Date: 01/22/24 Loc: US Attending Dr: Bridger Sims D.O. Ordering Physician: Bridger Sims D.O. Date of Service: 01/22/24 Procedure(s): US OB cervical length Accession Number(s): [id number] cc: Bridger Sims D.O.; Physician,Non-Staff Ashleigh [address] [address] Patient Name: YAKELIN MELGOZA MRN: [id number] date: 1995 Sex: F Assigned Patient Location: US Current Patient Location: US Accession/Order Number: [id number] Exam Date: 01/22/2024 09:50 Report Date: 01/22/2024 [...] Signed By: 01/22/24 1100 DD/ 1058 TD/TT: Film Inspector: Procedure Note Radiology, Radiologist, MD - 01/22/2024 [place] [address] Ultrasound Report Signed Patient: YAKELIN MELGOZA PMR#: [id number] : 1995Acct:[id number] Age/Sex: 28 FADM Date: 01/22/24 Loc: US Attending Dr: Bridger Sims D.O. Ordering Physician: Bridger Sims D.O. Date of Service: 01/22/24 Procedure(s): US OB cervical length Accession Number(s): [id number] cc: Bridger Sims D.O.; Physician,Non-Staff [place] [address] Patient Name: YAKELIN MELGOZA MRN: [id number] date: 1995 Sex: F Assigned Patient Location: US Current Patient Location: Accession/Order Number: [id number] Exam Date: 01/22/2024 09:50 Report Date: 01/22/2024 10:58 At the request of: BRIDGER BETHANY Procedure: US OB cervical length EXAMINATION: US [...] M.D. Signed By:01/22/24 1100 DD/ 1058 TD/TT: Film Inspector: us Bridger Bethany DO [facility] Final Result documented in this encounter Visit Diagnoses Not on filedocumented in this encounter
--- OUTSIDE RECORDS SUMMARY | 2025-06-05 08:21 | XMS_ITS | Encounter Summary ---
Author Organization [facility] Address [address] [place] [address] Care Team Providers Care Post Anesthesia Room Nurse Name Role Phone Unavailable Primary Care Provider Unavailabl e Encounter Details Date Type Department Care Team (Late st Contact Info) Description 06/01/2025 Clinisync Result Encounter NOMS External Department Unsolicited Bridger Sims DO [address] [facility] [place] [address] Social History Tobacco Use Types [...] 06/15/2025 8:50 AM EDT Routine [facility] [address] [facility] [place] [place] [address] Laquita Little, DOROTHY [address] [facility] [place] [address] documented as of this encounter Procedures Procedure Name Priority Date/Time Associated Diagnosis Comments ALL CBC WITH AUTO DIFF Routine 06/01/2025 8:28 AM EDT documented in this encounter Results * (ABNORMAL) ALL CBC WITH AUTO DIFF (06/01/2025 8:28 AM EDT) [facility] WBC 9.8 4.0 - 11.0 10 3/uL TBH TBH RBC 3.65(L) 4.20 - 5.40 10 6/uL TBH TBH HGB 9.1(L) 12.0 - 16.0 g/dL TBH TBH HCT 28.1(L) 36.0 - 48.0 % TBH TBH MCV 77.0(L) 81.0 - 99.0 fL TBH TBH MCH 24.9(L) 26.7 - 34.0 pg TBH TBH MCHC 32.4 29.9 - 35.2 g/dL TBH TBH RDW 13.9 11.0 - 15.0 % TBH TBH PLT 169 150 - 450 10 3/uL TBH TBH MPV 10.2 9.5 - 13.5 fL TBH NEUTROPHILS PERCENT AUTO 78.5(H) 43.0 - 75.0 % TBH LYMPHOCYTES PERCENT AUTO 12.6(L) 20.5 - 60.0 % TBH MONOCYTES PERCENT AUTO 7.2 1.7 - 12.0 % TBH TBH EO % 0.7(L) 0.9 - 7.0 % TBH BASOPHILS PERCENT AUTO 0.3 0.2 - 2.0 % TBH IMMATURE GRANULOCYTES PCT AUTO 0.7(H) 0.0 - 0.5 % TBH NEUTROPHILS ABSOLUTE AUTO 7.7(H) 1.4 - 6.5 10 3/uL TBH LYMPHOCYTES ABSOLUTE AUTO 1.2 1.2 - 3.8 10 3/uL TBH MONOCYTES ABSOLUTE AUTO 0.7 0.3 - 0.8 10 3/uL TBH TBH EO # 0.1 0.0 - 0.7 10 3/uL TBH BASOPHILS ABSOLUTE AUTO 0.0 0.0 - 0.1 10 3/uL TBH IMMATURE GRANULOCYTES ABS AUTO 0.07(H) 0.00 - 0.03 10 3/uL TBH 06/01/2025 8:28 AM EDT 06/01/2025 8:29 AM EDT Narrative [facility] - 06/01/2025 8:43 AM EDT us Bridger Bethany DO [facility] Final Result [facility] documented in this encounter Visit Diagnoses Not on filedocumented in this encounter
--- OUTSIDE RECORDS SUMMARY | 2025-06-05 08:21 | XMS_ITS ---
Author Organization [facility] [employer] c[employer] (ClinicalSummary Clone) Address Unknown Care Team Providers Care Website Programmer Name Role Phone Unavailable Primary Care Physician Unavailab le Results * [UNITY] ANEUPLOIDY NIPT Performed by: [employer] Component Value Range Date Fraction 7.8% 03/09/2025 07 :04 pm UTC Rh(D) NIPT RhD DETECTED 03/09/2025 07:0 4 pm UTC Sex Chromosome Aneuploidy NOT DETECTED 07:04 pm UTC Monosomy X LOW RISK <1 in 10,000 2024 07:04 pm UTC Trisomy 13 LOW RISK <1 in 10,000 2024 07:04 pm UTC Trisomy 18 LOW RISK <1 in 10,000 2024 07:04 pm UTC Trisomy 21 LOW RISK <1 in 10,000 2024 07:04 pm UTC Sex MALE 03/09/2025 07:0 4 pm UTC Gestation SOLARES 03/09/20 07:04 pm UTC For detailed report, see PDF See PDF 03/09/2025 07:04 pm UTC 03/09/2025 07:0 4 pm UTC Social History Observation Value Start Date End Date
--- OUTSIDE RECORDS SUMMARY | 2025-06-05 08:21 | XMS_ITS | Encounter Summary ---
Author Organization [facility] Address [address] [place] [address] Care Team Providers Care Public Affairs Manager Name Role Phone Unavailable Primary Care Provider Unavailabl e Encounter Details Date Type Department Care Team (Late st Contact Info) Description 01/09/2024 Abstract [facility] [address] [facility] [place] [address] Jacqueline Joyce LPN [address] [facility] [place] [address] Social History Tobacco Use Types Packs/Day [...] 8:50 AM EDT Routine [facility] [address] [facility] [place] [address] Laquita Little, DOROTHY [address] [facility] [place] [address] documented as of this encounter Visit Diagnoses Not on filedocumented in this encounter
--- OUTSIDE RECORDS SUMMARY | 2025-06-05 08:21 | XMS_ITS | Encounter Summary ---
Author Organization [facility] Address [address] [place] [address] Care Team Providers Care Hospice Music Therapist Name Role Phone Unavailable Primary Care Provider Unavailabl e Encounter Details Date Type Department Care Team (Late st Contact Info) Description 05/29/2024 Clinisync Result Encounter NOMS External Department Unsolicited Sarita Ballard PA [address] [facility] [place] [address] Social History Tobacco Use Types [...] AM EDT Routine [facility] [address] [facility] [address] [address] Laquita Little, CARPENTRY SUPERVISOR [address] [facility] [place] [address] documented as of this encounter Procedures Procedure Name Priority Date/Time Associated Diagnosis Comments US OB GROWTH 05/29/2024 9:15 AM EDT documented in this encounter Results * US OB GROWTH (05/29/2024 9:15 AM EDT) Anatomical Region Laterality Modality Other 05/29/2024 9:15 AM EDT Narrative 05/29/2024 9:18 AM EDT [address] [address] Ultrasound Report Signed Patient: YAKELIN MELGOZA MR#: [id number] : 1995 Acct:[id number] Age/Sex: 28 / F ADM Date: 05/29/24 Loc: US Attending Dr: Sarita Ballard Ordering Physician: Sarita Ballard Date of Service: 05/29/24 Procedure(s): US OB growth Accession Number(s): [id number] cc: Sarita Ballard; Physician,Non-Staff M.Azra [address] [address] Patient Name: YAKELIN MELGOZA MRN: [id number] date: 1995 Sex: F Assigned Patient Location: US Current Patient Location: Accession/Order Number: [id number] Exam Date: 05/29/2024 08:30 Report Date: 05/29/2024 [...] M.D. Signed By: 05/29/24917 DD/ 4 TD/TT: Operations Asst: Procedure Note Radiology, Radiologist, - 05/29/2024 [place] [address] Ultrasound Report Signed Patient: YAKELIN MELGOZA PMR#: [id number] : 1995Acct:[id number] Age/Sex: 28 / FADM Date: 05/29/24 Loc: US Attending Dr: Sarita Ballard Ordering Physician: Sarita Ballard Date of Service: 05/29/24 Procedure(s): US OB growth Accession Number(s): [id number] cc: Sarita Ballard; Physician,Non-Staff M.Azra The [place] [address] Patient Name: YAKELIN MELGOZA MRN: [id number] date: 1995 Sex: F Assigned Patient Location: US Current Patient Location: US Accession/Order Number: [id number] Exam Date: 05/29/2024 08:30 Report Date: 05/29/2024 [...] Hendrickson M.D. Signed By:05/29/24917 DD/ 4 TD/TT: Operations Asst: Sarita ROBERTO [facility] Final Result documented in this encounter Visit Diagnoses Not on filedocumented in this encounter
--- OUTSIDE RECORDS SUMMARY | 2025-06-05 08:21 | XMS_ITS | Encounter Summary ---
Author Organization [facility] Address [address] [place] [address] Care Team Providers Care Health Psychologist Name Role Phone Unavailable Primary Care Provider Unavailabl e Encounter Details Date Type Department Care Team (Late st Contact Info) Description 05/27/2024 Abstract [facility] [address] [facility] [place] [place] [address] Bridger Sims DO [address] [facility] [place] [address] Social History Tobacco Use Types Packs/Day [...] 8:50 AM EDT Routine [facility] [address] [facility] [place] [place] [address] Laquita Little, DOROTHY [address] [facility] [place] [address] documented as of this encounter Visit Diagnoses Not on filedocumented in this encounter
--- OUTSIDE RECORDS SUMMARY | 2025-06-05 08:21 | XMS_ITS | Clinical Summary ---
Author Organization [facility] Address [address] [place] [address] Care Team Providers Care Ab Initio Etl Developer Name Role Phone Unavailable Primary Care Provider Unavailabl e Allergies Active Allergy Reactions Criticality Noted Date Comments Cortisone Rash Low 04/15/2024 Hydrocortisone Hives 09/23/2022 Latex Hives Medium 09/23/2022 Morphine 09/13/2024 Medications Vit-Fe Fumarate-FA ( VITAMIN PO)Indications:Misse d menses,, unspecified gestational age ([facility]) Take by mouth Active iron polysaccharides (ProFe) 391.3 (180 Fe) MG capsuleIndications:L ow hemoglobin Take 1 capsule (391.3 mg) by mouth Daily 30 capsule 3 5 06/06/20 25 Active Active Problems Problem Noted Date Diagnosed Date 15 weeks gestation of ([facility]) 2024 Second trimester fetus ([facility]) 03/03/2025 Missed menses 12/11/2023 Estimated Date of Delivery Comme nts Yes 08/19/2025 Based on Ultraso und Encounters Date Type Department Care Team Description 06/04/2025 Telephone [facility] [address] [place] [address] Cydney Vitale MA 06/01/2025 10:20 [place] [address] Bridger Sims DO 28 weeks gestation of ([facility]); Third trimester ([facility]) 06/01/2025 9:30 AM EDT Ancillary [place] [address] Uterine synechiae 06/01/2025 Clinisync Result Encounter NOMS External Department Unsolicited Bridger Sims, DO 05/12/2025 Telephone [facility] [address] [facility] [place] [address] Bridger Sims, DO 05/07/2025 Telephone [facility] [address] [facility] [place] [address] Cydney Vitale, LEDA 05/07/2025 Clinisync Result Encounter NOMS External Department Unsolicited Sarita Mcnair PA 05/04/2025 9:20 AM EDT Routine [facility] [address] [facility] [place] [address] Sarita Mcnair PA 24 weeks gestation of ([facility]); Second trimester ([facility]); Diabetes mellitus screening 05/04/2025 8:30 AM EDT Ancillary Procedure [facility] [address] [facility] [place] [address] Encounter for follow-up ultrasound of anatomy ([facility]) 04/29/2025 Abstract [facility] [address] [facility] [place] [address] Bridger Sims, DO 04/29/2025 Abstract [facility] [address] [facility] [place] [address] Sarita Mcnair PA 04/13/2025 Telephone [facility] [address] [facility] [place] [address] Bridger Sims, DO 04/13/2025 Abstract [facility] [address] [facility] [place] [address] Bridger Sims, DO 04/06/2025 10:40 AM EDT Routine [facility] [address] [place] [address] Sarita Mcnair PA Second trimester ([facility]); 20 weeks gestation of ([facility]) 04/06/2025 9:30 AM EDT Ancillary Procedure [facility] [address] [facility] [place] [address] Screening, , for anatomic survey ([facility]) from Last 3 Months Family History Medical [...] 6.4 oz) 06/01/2025 10:23 AM EDT Height 157.5 cm (5' 2 ) 02/13/2025 10:16 AM EDT Body Mass Index 34.82 02/13/2025 10:16 AM EDT Plan of Treatment Upcoming Encounters Date Type Department Care Team (Late st Contact Info) Description 06/15/2025 8:50 AM EDT Routine [facility] [address] [facility] [place] [address] Laquita Little, DOROTHY [address] [facility] [place] [address] Procedures Procedure Name Priority Date/Time Associated Diagnosis Comments POCT URINALYSIS DIPSTICK Routine 06/01/2025 10:34 AM EDT 28 weeks gestation of ([facility]) Third trimester ([facility]) US OB FOLLOW UP TRANSABDOMINAL APPROACH Routine 06/01/2025 10:01 AM EDT Uterine synechiae ALL CBC WITH AUTO DIFF Routine 8:28 AM EDT GLUCOSE 1 HOUR Routine 05/07/2025 7:41 AM EDT ALL CBC WITH AUTO DIFF Routine 5 7:41 AM EDT POCT URINALYSIS DIPSTICK Routine 05/04/2025 9:03 AM EDT 24 weeks gestation of ([facility]) Second trimester ([facility]) US OB LIMITED 1+ FETUSES Routine 05/04/2025 8:47 AM EDT Encounter for follow-up ultrasound of anatomy ([facility]) US OB 14+ WEEKS ANATOMY SCAN Routine 04/06/2025 10:35 AM EDT Screening, , for anatomic survey ([facility]) from Last 3 Months Results * Urine dip (06/01/2025 10:34 AM EDT) Only the most recent of2 resultswithin the time period is included. Color, UA Yellow Clarity, UA Clear Glucose, UA Negative Negative - 1999(110) ++++ mg/dL Bilirubin, UA Negative Negative - 4(70) +++ mg/dL Ketones, UA Negative Negative - 160(16) ++++ mg/dL Spec Grav, UA 1.015 1 - 1.03 Blood, UA Negative Negative - 50 Haseeb/mcL pH, UA 6.5 5 - 9 Protein, UA Negative Negative - 1999(20) ++++ mg/dL Urobilinogen, UA 1.0 0.2 - 12 mg/dL Leukocytes, UA Negative Negative - 500+++ Ronaldo/mcL Nitrite, UA Negative Negative - Positive Urine 06/01/2025 10:3 4 AM EDT us Bridger Sims DO POINT OF CARE TEST ENTER/EDIT OR DERABLES Final Result * US OB follow up transabdominal approach [...] Luis Packer MD us Bridger Sims DO [facility] [place] US PROCEDURES Final Resul t * (ABNORMAL) ALL CBC WITH AUTO DIFF (06/01/2025 8:28 AM EDT) Only the most recent of2 resultswithin the time period is included. TBH WBC 9.8 4.0 - 11.0 10 3/uL [...] - 06/01/2025 8:43 AM EDT us Bridger Danielsono DO [facility] Final Result [facility] TB * GLUCOSE 1 HOUR (05/07/2025 7:41 AM EDT) GLUCOSE 1 HOUR 105 <130 mg/dL TBH 05/07/2025 7:41 AM EDT 05/07/2025 7:50 AM EDT Narrative [facility] - 05/07/2025 9:26 AM EDT us Sarita ROBERTO LAB BLOOD ORDERABLES Final Resul t [facility] TB * US OB limited 1+ fetuses (05/04/2025 8:47 AM EDT) Anatomical Region Laterality Modality Body Ultrasound 05/05/2025 8:01 AM EDT Narrative 05/05/2025 8:01 AM EDT EXAM: US OB LIMITED 1+ FETUSES HISTORY: [...] II, MD, PHD at 05-May-2025 07:59:10 AM [facility] Procedure Note Heena Bhardwaj MD - 05/05/2025 EXAM: US OB LIMITED 1+ FETUSES HISTORY: Follow up anatomy. COMPARISON: Ob ultrasound 04/06/2025. TECHNIQUE: Two-dimensional transabdominal grayscale ultrasound imaging ofthe pelvis was performed. FINDINGS: Gestation: Single Presentation: Cephalic Cardiac Activity: 142 beats per minute Placental Location: Posterior with uterine synechiae Amniotic Fluid: Appears adequate ANATOMY Four Chamber Heart: Unremarkable LVOT: Unremarkable RVOT: Unremarkable IMPRESSION: 1. Single, live intrauterine gestation 24 weeks, 5 days by LMP. VANGIE byLMP is 08/19/2025. 2. Unremarkable four-chamber heart and outflow tracts. 3. Uterine synechiae again identified. Interpreted by: Electronically signed by HEENA BHARDWAJ II, MD, PHD [id number] 07:59:10 AM [facility] us Bridger Bethany DO IMG OB US PROCEDURES Final Resul t * US OB 14+ weeks anatomy scan (04/06/2025 10:35 AM EDT) Anatomical Region Laterality Modality Body Ultrasound 04/07/2025 7:26 AM EDT Narrative 04/07/2025 7:27 AM EDT EXAM: US OB 14+ WEEKS ANATOMY SCAN [...] II, MD, PHD at 07-Apr-2025 07:25:13 AM [facility] Procedure Note Heena Bhardwaj MD - 04/07/2025 EXAM: US OB 14+ WEEKS ANATOMY SCAN HISTORY: anatomy. COMPARISON: Ob ultrasound 02/13/2025. TECHNIQUE: Two-dimensional transabdominal grayscale ultrasound imaging ofthe pelvis was performed. FINDINGS: Gestation: Single Presentation: [...] is 20 weeks 6 days (+/- 10 daysgestation). Estimated Weight: 407 grams, +/- 61 grams [...] gestation 20 weeks, 5 days by LMP. Today'sultrasound measurements correlate with a gestational age of 20 weeks 6days. Estimated weight is 407 grams, +/- 61 grams ( 0 lb 14 oz)which correlates to 73 %. VANGIE by today's ultrasound is 08/18/2025. 2. Non-visualization of the four-chamber heart and outflow tracts. Ashort-term follow-up ultrasound is recommended. 3. Possible uterine synechiae. Consultation with MFM is recommended. Interpreted by: Electronically signed by HEENA BHARDWAJ II, MD, PHD 07:25:13 AM [facility] us Bridger Bethany DO IMG OB US PROCEDURES Final Resul t from Last 3 Months Insurance [employer]
--- OUTSIDE RECORDS SUMMARY | 2025-06-05 08:21 | XMS_ITS | Encounter Summary ---
Author Organization [facility] Address [address] [place] [address] Care Team Providers Care Assembly Line Machine Operator Name Role Phone Unavailable Primary Care Provider Unavailabl e Encounter Details Date Type Department Care Team (Late st Contact Info) Description 04/29/2025 Abstract [facility] [address] [facility] [place] [address] Bridger Sims DO [address] [facility] [place] [address] Social History Tobacco Use Types Packs/Day [...] 8:50 AM EDT Routine [facility] [address] [facility] [place] [address] Laquita Little, DOROTHY [address] [facility] [place] [address] documented as of this encounter Visit Diagnoses Not on filedocumented in this encounter
--- OUTSIDE RECORDS SUMMARY | 2025-06-05 08:21 | XMS_ITS | Encounter Summary ---
Author Organization [facility] Address [address] [place] [address] Care Team Providers Care Emergency Department Aide Name Role Phone Unavailable Primary Care Provider Unavailabl e Encounter Details Date Type Department Care Team (Late st Contact Info) Description 04/02/2024 Abstract [facility] [address] [facility] [place] [address] Jacqueline Joyce LPN [address] [facility] [place] [address] Social History Tobacco Use Types Packs/Day [...] 8:50 AM EDT Routine [facility] [address] [facility] [place] [address] Laquita Little, DOROTHY [address] [facility] [place] [address] documented as of this encounter Visit Diagnoses Not on filedocumented in this encounter
--- OUTSIDE RECORDS SUMMARY | 2025-06-05 08:21 | XMS_ITS | Encounter Summary ---
Author Organization [facility] Address [address] [place] [address] Care Team Providers Care Field Research Associate Name Role Phone Unavailable Primary Care Provider Unavailabl e Encounter Details Date Type Department Care Team (Late st Contact Info) Description 12/13/2023 Clinisync Result Encounter NOMS External Department Unsolicited Bridger Sims DO [address] [facility] [place] [address] Social History Tobacco Use Types [...] AM EDT Routine [facility] [address] [place] [address] Laquita Little, SCRAPE GATHERER [address] [facility] [place] [address] documented as of this encounter Procedures Procedure Name Priority Date/Time Associated Diagnosis Comments US OB TRANSVAGINAL 12/13/2023 1: 43 PM EDT documented in this encounter Results * US OB TRANSVAGINAL (12/13/2023 1:43 PM EDT) Anatomical Region Laterality Modality Other 12/13/2023 1:43 PM EDT Narrative 12/13/2023 1:45 [place] [address] Ultrasound Report Signed Patient: Yakelin Melgoza MR#: [id number] : 1995 Acct:[id number] Age/Sex: 28 / F ADM Date: 12/13/23 Loc: NOMS Attending Dr: Bridger Sims D.O. Ordering Physician: Bridger Sims D.O. Date of Service: 12/13/23 Procedure(s): US OB transvaginal Accession Number(s): [id number] cc: Bridger Mcleod D.O. [place] [id number] Patient Name: YAKELIN MELGOZA MRN: [id number] date: 1995 Sex: F Assigned Patient Location: [facility] Current Patient Location: [facility] Accession/Order Number: [id number] Exam Date: 12/13/2023 12:33 Report Date: 12/13/2023 [...] Signed By: 12/13/23 1345 DD/ 1343 TD/TT: [employer]: Procedure Note Radiology, Radiologist, MD - 12/13/2023 [place] [address] Ultrasound Report Signed Patient: Yakelin Melgoza PMR#: [id number] : 1995Acct:[id number] Age/Sex: M Date: 12/13/23 Loc: N[facility] Attending Dr: Bridger Sims D.O. Ordering Physician: Bridger Sims D.O. Date of Service: 12/13/23 Procedure(s): US OB transvaginal Accession Number(s): [id number] cc: Bridger Mcleod D.O. The [place] [id number] Patient Name: YAKELIN MELGOZA MRN: [id number] date: 1995 Sex: F Assigned Patient Location: [facility] Current Patient Location: [facility] Accession/Order Number: [id number] Exam Date: 12/13/2023 12:33 Report Date: 12/13/2023 [...] M.D. Signed By:12/13/23 1345 DD/ 1343 TD/TT: [employer] Museum: us Bridger Sims DO [facility] Final Result documented in this encounter Visit Diagnoses Not on filedocumented in this encounter
--- OUTSIDE RECORDS SUMMARY | 2025-06-05 08:21 | XMS_ITS | Encounter Summary ---
Author Organization [facility] Address [address] [place] [address] Care Team Providers Care Dewaxer Name Role Phone Unavailable Primary Care Provider Unavailabl e Encounter Details Date Type Department Care Team (Late st Contact Info) Description 06/17/2024 Abstract ANALIA AVILES [address] [facility] [place] [address] Bridger Sims DO [address] [facility] [place] [address] Social History Tobacco Use Types Packs/Day [...] 8:50 AM EDT Routine ANALIA AVILES [address] [facility] [place] [address] Laquita Little, DOROTHY [address] [facility] [place] [address] documented as of this encounter Visit Diagnoses Not on filedocumented in this encounter
--- OUTSIDE RECORDS SUMMARY | 2025-06-05 08:21 | XMS_ITS | Encounter Summary ---
Author Organization [facility] Address [address] [place] [address] Care Team Providers Care Examination Supervisor Name Role Phone Unavailable Primary Care Provider Unavailabl e Encounter Details Date Type Department Care Team (Late st Contact Info) Description 04/29/2024 Clinisync Result Encounter [facility] External Department Unsolicited Sarita Ballard PA [address] [facility] [address] Social History Tobacco Use Types Packs/Day [...] EDT Routine [facility] [address] [facility] [place] [address] Laquita Little, SKIN TOGGLER [address] [facility] [place] [address] documented as of this encounter Procedures Procedure Name Priority Date/Time Associated Diagnosis Comments US OB GROWTH 04/29/2024 12:45 PM EDT documented in this encounter Results * US OB GROWTH (04/29/2024 12:45 PM EDT) Anatomical Region Laterality Modality Other 04/29/2024 12:4 5 PM EDT Narrative 04/29/2024 12:47 PM EDT The [address] [address] Ultrasound Report Signed Patient: YAKELIN MELGOZA MR#: [id number] : 1995 Acct:[id number] Age/Sex: 28 / F ADM Date: 04/29/24 Loc: [facility] Attending Dr: Sarita Ballard Ordering Physician: Sarita Ballard Date of Service: 04/29/24 Procedure(s): US OB growth Accession Number(s): [id number] cc: Sarita Ballard; Physician,Non-Staff M.Azra [address] [address] Patient Name: YAKELIN MELGOZA MRN: [facility]:[id number] date: 1995 Sex: F Assigned Patient Location: [facility] Current Patient Location: [facility] Accession/Order Number: [id number] Exam Date: 04/29/2024 11:30 Report Date: 04/29/2024 12:45 At the request of: SARITA BALLARD Procedure: US OB growth EXAMINATION: US OB growth HISTORY: SIZE INCONSISTENT WITH DATES COMPARISON: No relevant comparison available. FINDINGS: Heart Rate: 135 bpm Amniotic Fluid Volume: 18.3 cm. Largest fluid pocket 6.5 cm Number: 1 Position: Cephalic presentation, longitudinal lie BIOMETRY: BPD: 8.28 cm; 33 weeks 2 days; 78.70 % HC: 30.75 cm; 34 weeks 2 days; 74.50 % AC: 29.08 cm; 33 weeks 1 day; 79 % FL: 6.40 cm; 33 weeks 0 days; 66.50 % EFW: 2159.86 g; 78.10 %, 4 lbs. 12 oz. FL/AC: 22.01 FL/BPD: 77.29 HC/AC: 1.06 GESTATIONAL AGE: Age by EDC: 32 weeks 0 days VANGIE by EDC: 2024-06-24 Age by US: 33 weeks 3 days VANGIE by US: 2024-06-14 US/US OB growth IMPRESSION: Normal interval growth Electronically authenticated by: FRANKIE HENDRICKSON Date: 04/29/2024 12:45 Dictated By: Frankie Hendrickson M.D. Signed By: 04/29/24 1247 DD/ 1245 TD/TT: Wide Area Network Administrator: Procedure Note Radiology, Radiologist, - 04/29/[address] [address] Ultrasound Report Signed Patient: YAKELIN MELGOZA PMR#: [id number] : 1995Acct:[id number] Age/Sex: 28 / FADM Date: 04/29/24 Loc: [facility] Attending Dr: Sarita Ballard Ordering Physician: Sarita Ballard Date of Service: 04/29/24 Procedure(s): US OB growth Accession Number(s): [id number] cc: Sarita Ballard; Physician,Non-Staff M.DRina The [address] [address] Patient Name: YAKELIN MELGOZA MRN: [facility]:[id number] date: 1995 Sex: F Assigned Patient Location: [facility] Current Patient Location: [facility] Accession/Order Number: [id number] Exam Date: 04/29/2024 11:30 Report Date: 04/29/2024 12:45 At the request of: SARITA BALLARD Procedure: US OB growth EXAMINATION: US OB growth HISTORY: SIZE INCONSISTENT WITH DATES COMPARISON: No relevant comparison available. FINDINGS: Heart Rate: 135 bpm Amniotic Fluid Volume: 18.3 cm. Largest fluid pocket 6.5 cm Number: 1 Position: Cephalic presentation, longitudinal lie BIOMETRY: BPD: 8.28 cm; 33 weeks 2 days; 78.70 % HC: 30.75 cm; 34 weeks 2 days; 74.50 % AC: 29.08 cm; 33 weeks 1 day; 79 % FL: 6.40 cm; 33 weeks 0 days; 66.50 % EFW: 2159.86 g; 78.10 %, 4 lbs. 12 oz. FL/AC: 22.01 FL/BPD: 77.29 HC/AC: 1.06 GESTATIONAL AGE: Age by EDC: 32 weeks 0 days VANGIE by EDC: 2024-06-24 Age by US: 33 weeks 3 days VANGIE by US: 2024-06-14 US/US OB growth IMPRESSION: Normal interval growth Electronically authenticated by: FRANKIE HENDRICKSON Date: 04/29/2024 12:45 Dictated By: Frankie Hendrickson M.D. Signed By:04/29/24 1247 DD/ 1245 TD/TT: Wide Area Network Administrator: Sarita ROBERTO [facility] Final Result documented in this encounter Visit Diagnoses Not on filedocumented in this encounter
--- OUTSIDE RECORDS SUMMARY | 2025-06-05 08:21 | XMS_ITS | Encounter Summary ---
Author Organization [facility] Address [address] [place] [address] Care Team Providers Care Surveyor'S Assistant Name Role Phone Unavailable Primary Care Provider Unavailabl e Encounter Details Date Type Department Care Team (Late st Contact Info) Description 05/02/2024 Abstract ANALIA AVILES [address] [facility] [place] [address] Bridger Sims DO [address] [facility] [place] [address] Social History Tobacco Use Types Packs/Day [...] 8:50 AM EDT Routine ANALIA AVILES [address] [facility] [place] [address] Laquita Little, DOROTHY [address] [facility] [place] [address] documented as of this encounter Visit Diagnoses Not on filedocumented in this encounter
--- OUTSIDE RECORDS SUMMARY | 2025-06-05 08:21 | XMS_ITS | Clinical Summary ---
Author Organization [facility] Address [address], [address] [place] [address] Care Team Providers Care Rn Mds Coordinator Name Role Phone Sbmarcio Sarita Costello APRN - [facility] Primary Care Provider Allergies Active Allergy Reactions Criticality Noted Date Comments Hydrocortisone Hives 09/23/2022 Latex Medium 04/16/2023 Morphine 09/13/2024 Medications Xueepybm-Vnj-Mb- FA (PRE-TADEO FORMULA PO) Take by mouth Active Active Problems Problem Noted Date Diagnosed Date Suspected anomaly not found 04/29/2025 Primigravida, second trimester 04/29/2025 24 weeks gestation of 04/29/2025 Uterine synechiae 04/29/2025 Estimated Date of Delivery Comme nts Yes 08/19/2025 Based on Ultraso und Encounters Date Type Department Care Team Description 04/29/2025 12:45 PM EDT Routine [facility]aternal [facility] [address] [place] [phone] Satish Hernandez MD Suspected anomaly not found (Primary Dx); Primigravida, second trimester; 24 weeks gestation of ; Uterine synechiae 04/29/2025 Abstract [facility] [address] [place] [phone] Satish Hernandez MD from Last 3 Months Social History Tobacco Use Types Packs/Day Years Used Date Smoking Tobacco: Never Smokeless Tobacco: Never Tobacco Cessation:Counseling Given: No Alcohol Use Standard Drinks/Week Comments Never 0 (1 standard drink = 0.6 oz pur e alcohol) Interpersonal Safety Domain Source: IP Abuse Scr eening Answer Date Recorded Read-Only, Retired: Physical Abuse Denies 04/16/2023 Read-Only, Retired: Verbal Abuse Denies 04/16/2023 Read-Only, Retired: Emotional abuse Denies 04/16/2023 Read-Only, Retired: Financial Abuse Denies 04/16/2023 Read-Only, Retired: Sexual abuse Denies 04/16/2023 Estimated Date of Delivery Comme nts Yes 08/19/2025 Based on Ultraso und Sex and Gender Information Value Date Recorded Sex Assigned at Not on file Legal Sex Female 9:21 AM EDT Gender Identity Not on file Sexual Orientation Not on file Last Filed Vital Signs Vital Sign Reading Time Taken Comments Blood Pressure 106/61 04/29/2025 12:58 PM EDT Pulse 82 04/29/2025 12:58 PM EDT Temperature 36.8 C (98.2 F) 04/29/2025 12:58 PM EDT Respiratory Rate 16 04/29/2025 12:5 8 PM EDT Oxygen Saturation 98% 09/13/2024 6:17 PM EST Inhaled Oxygen Concentration - - Weight 84.8 kg (186 lb 15.2 oz) 025 12:58 PM EDT Height 157.5 cm (5' 2 ) 04/29/2025 12:5 8 PM EDT Body Mass Index 34.19 04/29/2025 12:58 PM EDT Plan of Treatment Health Maintenance Due Date Last Done Comments Depression Screen 2007 Varicella vaccine (1 of 2 - 13+ 2-dose series) 12/04/2008 HIV screen 12/04/2010 Hepatitis C screen 12/04/2013 Hepatitis B vaccine (1 of 3 - 19+ 3-dose series) 12/04/2014 Pap smear 12/04/2016 Flu vaccine (#1) 04/17/2025 COVID-19 Vaccine (1 - 2023-2 5 season) 2025 Tdap Vaccine during 05/20/2025 Respiratory Syncytial Virus (RSV) or age 60 yrs+ (1 - Risk 1-dose series) 06/24/2025 DTaP/Tdap/Td vaccine (3 - Td or Tdap) 09/23/2032 09/23/2022, 02/17/2016 HPV vaccine (No Doses Required) Completed Hepatitis A vaccine Aged Out No longe r eligible based on patient's age to complete this topic Hib vaccine Aged Out No longer eligi ble based on patient's age to complete this topic Meningococcal (ACWY) vaccine Aged Out No longer eligible based on patient's age to complete this topic Meningococcal B vaccine Aged Out No l onger eligible based on patient's age to complete this topic Pneumococcal 0-49 years Vaccine Aged Out No longer eligible b ased on patient's age to complete this topic Polio vaccine Aged Out No longer elig ible based on patient's age to complete this topic Procedures Procedure Name Priority Date/Time Associated Diagnosis Comments US OB DETAIL ANATOMY SINGLE OR FIRST GESTATION Routine 04/29/2025 Suspected anomaly not found Primigravida, second trimester 24 weeks gestation of Uterine synechiae from Last 3 Months Results * US OB DETAIL ANATOMY SINGLE OR FIRST GESTATION (04/29/2025) Anatomical Region Laterality Modality Abdomen Other us Satish Hernandez MD [facility] US ORDERABLES Final Result from Last 3 Months Insurance [facility] MEDICAID Care Teams Rn Mds Coordinator Relationship Specialty Start Date End Date Sraita Bedoya APRN - HOME DEMONSTRATION AGENT [address] [place] [id number] PCP - General Certified Clinical Nurse Specialist 7/31/23
--- OUTSIDE RECORDS SUMMARY | 2025-06-05 08:21 | XMS_ITS | Encounter Summary ---
Author Organization [facility] Address [address] [place] [address] Care Team Providers Care Biological Science Aide Name Role Phone Unavailable Primary Care Provider Unavailabl e Encounter Details Date Type Department Care Team (Late st Contact Info) Description 05/28/2024 Abstract ANALIA AVILES [address] [facility] [place] [address] Bridger Sims DO [address] [facility] [place] [address] Social History Tobacco Use Types Packs/Day [...] 8:50 AM EDT Routine ANALIA AVILES [address] [facility] [place] [address] Laquita Little, DOROTHY [address] [facility] [place] [address] documented as of this encounter Visit Diagnoses Not on filedocumented in this encounter
--- OUTSIDE RECORDS SUMMARY | 2025-06-05 08:21 | XMS_ITS | Encounter Summary ---
Author Organization [facility] Address [address] [place] [address] Care Team Providers Care Business Development Name Role Phone Unavailable Primary Care Provider Unavailabl e Encounter Details Date Type Department Care Team (Late st Contact Info) Description 05/02/2024 Abstract ANALIA AVILES [address] [facility] [address] Bridger Sims DO [address] [facility] [place] [address] Social History Tobacco Use Types Packs/Day [...] 8:50 AM EDT Routine ANALIA AVILES [address] [facility] [address] Laquita Little, DOROTHY [address] [facility] [place] [address] documented as of this encounter Visit Diagnoses Not on filedocumented in this encounter
--- OUTSIDE RECORDS SUMMARY | 2025-06-05 08:21 | XMS_ITS | Clinical Summary ---
Author Organization [employer] [facility] tem Address [id number] [address] [place] [address] Care Team Providers Care Search Marketing Coordinator Name Role Phone Sarita Bedoya APRN-GLASS BENDER Primary Care Provider + Allergies Active Allergy [...] Insurance [facility] MEDICAID MEDICAID Care Teams Search Marketing Coordinator Relationship Specialty Start Date End Date Sarita Bedoya, KIESHA-GLASS BENDER [address] [address] PCP - General Nurse Practitioner 05/05/21
--- OUTSIDE RECORDS SUMMARY | 2025-06-05 08:21 | XMS_ITS | Encounter Summary ---
Author Organization [facility] Address [address] [place] [address] Care Team Providers Care Real Estate Internship Name Role Phone Unavailable Primary Care Provider Unavailabl e Encounter Details Date Type Department Care Team (Late st Contact Info) Description 01/22/2024 Clinisync Result Encounter [facility] External Department Unsolicited Bridger Sims DO [address] [facility] [place] [address] Social History Tobacco Use Types [...] 06/15/2025 8:50 AM EDT Routine [facility] [address] [facility] [place] [address] Laquita Little, LIMEHOUSE WORKER [address] [facility] [place] [phone] documented as of this encounter Procedures Procedure Name Priority Date/Time Associated Diagnosis Comments US OB ANATOMY 01/22/2024 10:58 AM EDT documented in this encounter Results * US OB ANATOMY (01/22/2024 10:58 AM EDT) Anatomical Region Laterality Modality Other 01/22/2024 10:5 8 AM EDT Narrative 01/22/2024 11:00 AM EDT [address] [address] Ultrasound Report Signed Patient: YAKELIN MELGOZA MR#: [id number] : 1995 Acct:[id number] Age/Sex: 28 / F ADM Date: 01/22/24 Loc: US Attending Dr: Bridger Sims D.O. Ordering Physician: Bridger Sims D.O. Date of Service: 01/22/24 Procedure(s): US OB anatomy Accession Number(s): [id number] cc: Bridger Sims D.O.; Physician,Non-Staff Ashleigh [address] [address] Patient Name: YAKELIN MELGOZA MRN: [id number] date: 1995 Sex: F Assigned Patient Location: US Current Patient Location: US Accession/Order Number: [id number] Exam Date: 01/22/2024 09:50 Report Date: 01/22/2024 [...] Signed By: 01/22/24 1100 DD/ 1058 TD/TT: Jackerman: Procedure Note Radiology, Radiologist, MD - 01/22/2024 [place] [address] Ultrasound Report Signed Patient: YAKELIN MELGOZA PMR#: [id number] : 1995Acct:[id number] Age/Sex: FADM Date: 01/22/24 Loc: US Attending Dr: Bridger Sims D.O. Ordering Physician: Bridger Sims D.O. Date of Service: 01/22/24 Procedure(s): US OB anatomy Accession Number(s): [id number] cc: Bridger Sims D.O.; Physician,Non-Staff Ashleigh The [place] [address] Patient Name: YAKELIN MELGOZA MRN: [id number] date: 1995 Sex: F Assigned Patient Location: US Current Patient Location: US Accession/Order Number: [id number] Exam Date: 01/22/2024 09:50 Report Date: 01/22/2024 [...] M.D. Signed By:01/22/24 1100 DD/ 1058 TD/TT: Jackerman: us Bridger Bethany DO [facility] Final Result documented in this encounter Visit Diagnoses Not on filedocumented in this encounter
--- OUTSIDE RECORDS SUMMARY | 2025-06-05 08:21 | XMS_ITS | Encounter Summary ---
Author Organization [facility] Address [address] [place] [address] Care Team Providers Care Sdc Teacher Name Role Phone Unavailable Primary Care Provider Unavailabl e Encounter Details Date Type Department Care Team (Late Contact Info) Description 06/04/2025 Telephone [facility] [address] [place] [address] [place] [address] Cydney Vitale MA [address] [facility] [place] [address] Social History Tobacco Use Types Packs/Day Years Used Date Smoking Tobacco: Never Assessed Estimated Date of Delivery Comme nts Yes 08/19/2025 Based on Ultraso und Sex and Gender Information Value Date Recorded Sex Assigned at Not on file Legal Sex Female 12:01 PM EST Gender Identity Not on file Sexual Orientation Not on file documented as of this encounter Miscellaneous Notes * Telephone Encounter - Cydney Vitale MA - 06/04/2025 12:10 PM EDT Pt called labs were sent in to have done due to low iron levels. PVU and will have the labs done tomorrow. Pt is aware these labs are required before getting the iron infusions. PVU documented in this encounter Plan of Treatment Upcoming Encounters Date Type Department Care Team (Late Contact Info) Description 06/15/2025 8:50 AM EDT Routine [facility] [address] [place] [address] Laquita Little, DOROTHY [address] [facility] [place] [address] Scheduled Orders Name Type Priority Associated Diagnoses Orde r Schedule Ferritin Lab Routine Low iron Expected: 06/04/2025 (Approximate), Expires: 06/04/2026 Transferrin Lab Routine Low iron Expected: 06/04/2025, Expires: 06/04/2026 documented as of this encounter Visit Diagnoses Diagnosis Low iron Unspecified iron deficiency anemia documented in this encounter
--- OUTSIDE RECORDS SUMMARY | 2025-06-05 08:22 | XMS_ITS | Encounter Summary ---
Author Organization [facility] Address [address] [place] [address] Care Team Providers Care Nurse Wound Care Name Role Phone Unavailable Primary Care Provider Unavailabl e Encounter Details Date Type Department Care Team (Late st Contact Info) Description 04/13/2025 Abstract [facility] AVILES [address] [facility] [address] Bridger Sims DO [address] [facility] [place] [address] Social [...] [address] [facility] [address] Laquita Little, DOROTHY [address] [facility] [place] [address] documented as of this encounter Visit Diagnoses Not on filedocumented in this encounter
--- OUTSIDE RECORDS SUMMARY | 2025-06-05 08:22 | XMS_ITS | Encounter Summary ---
Author Organization [facility] Address [address] [place] [address] Care Team Providers Care Managed Care Specialist Name Role Phone Unavailable Primary Care Provider Unavailabl e Encounter Details Date Type Department Care Team (Late st Contact Info) Description 04/29/2025 Abstract ANALIA AVILES [address] [facility] [place] [address] Sarita Mcnair PA [address] [facility] [address] [place], [facility] Social History Tobacco Use Types Packs/Day Years [...] 8:50 AM EDT Routine ANALIA AVILES [address] [facility] [place] [address] Laquita Little, DOROTHY [address] [facility] [place] [address] documented as of this encounter Visit Diagnoses Not on filedocumented in this encounter
[2025-06-05 09:57] LABS: Ferritin 5.0 ng/mL (8.0-252.0)
[2025-06-06 04:16] LABS: Transferrin 457 mg/dL (192-364)
== END 2025-06-05 08:14 | disposition home or self-care (01) ==
LOC: LAB 08:15
PROVIDERS: Visit Provider Obstetrics & Gynecology
DX: E61.1 Iron deficiency (principal)
CPT/HCPCS: 36415; 82728; 84466

== ENCOUNTER 2025-07-17 17:52 | Observation (INO) | payer OTHER, SELFPAY ==
--- OUTSIDE RECORDS SUMMARY | 2025-07-13 09:30 | XMS_ITS | Encounter Summary ---
Author Organization [facility] Address [address] [place] [address] Care Team Providers Care Belt Builder Helper Name Role Phone Unavailable Primary Care Provider Unavailabl e Reason for Visit * ReasonCommentsRoutine Visit Encounter Details DateTypeDepartmentCare Team (Latest Contact Info)Hpnomvgzbqh97/27/2025 9:30 AM EDTRoutine [facility] [address] [place] [phone] Bridger Sims DO [address] [place], [place] [id number] Third trimester ([facility]); 34 weeks gestation of ([facility]) Social History Tobacco UseTypesPacks/DayYears UsedDateSmoking Tobacco: Never Assessed Estimated Date of WiyotqkjFbakagwkNuu78/03/2025Based on UltrasoundSex and Gender InformationValueDate RecordedSex Assigned at BirthNot on fileLegal SexFemale 10/25/2023 12:01 PM ESTGender IdentityNot on fileSexual OrientationNot on file documented as of this encounter Last Filed Vital Signs Vital SignReadingTime TakenCommentsBlood Ndqfngsy032/8807/13/2025 9:24 AM EDT Pulse--Temperature--Respiratory Rate--Oxygen Saturation--Inhaled Oxygen Concentration--Nmaeid55 kg (194 lb)07/13/2025 9:24 AM EDTHeight--Body Mass [...] Missed menses 12/11/2023 15 weeks gestation of ([facility]) 03/03/2025 Second trimester fetus ([facility]) 03/03/2025 Resolved Ambulatory Problems Diagnosis Date [...] nursing note reviewed. Exam conducted with a maintenance foreman present. Vitals: Estimated body mass index is 35.48 kg/m?? as calculated from the following: Height as of 02/13/25: 5' 2 . Weight as of this encounter: 194 lb. BP: 134/88 Patient's last menstrual period was 11/12/2024. Assessment/Plan ICD-10-CM 1. Third trimester ([facility]) Z34.93 2. 34 weeks gestation of ([facility]) Z3A.34 POCT urinalysis dipstick manually resulted [...] Plan of Treatment DateTypeDepartmentCare Team (Latest Contact Info)Gegojxmqmcq00/03/2025 9:50 AM ESTRoutine [facility] [address] [phone] Sarita Mcnair PA [address] [facility] [place] [address] documented as of this encounter Procedures Procedure NamePriorityDate/TimeAssociated DiagnosisCommentsPOCT URINALYSIS GOYKHRLYPesutjh89/27/2025 9:32 AM EDT 34 weeks gestation of ([facility]) documented in this encounter Results * [...] / LateralityCollection Method / VolumeCollection Time Received CuyrIckdb23/27/2025 9:32 AM EDT Narrative Authorizing ProviderResult TypeResult StatusCorey Bethany DOPOINT OF CARE TEST ENTER/EDIT ORDERABLESFinal Result documented in this encounter Visit Diagnoses Diagnosis Third trimester ([facility]) state, incidental 34 weeks gestation of ([facility]) documented in this encounter
--- OUTSIDE RECORDS SUMMARY | 2025-07-17 17:57 | XMS_ITS | CCD ---
Author Organization [facility] Care Team Providers Care Citizenship Teacher Name Role Phone Alvaro Uptonamber Almendarez Unavailable [...] RAMONA JIMÉNEZ Procedure Practitioner Unavailab le Cleemput HIDES INSPECTOR-VP AD SALES WEST, Sarita Emmanuel Primary Care Unavai lable Cleemput HIDES INSPECTOR-VP AD SALES WEST, Sarita Emmanuel Attending Unavai lable Cleemput HIDES INSPECTOR-VP AD SALES WEST, Sarita Emmanuel Attending Unavai lable Cleemput HIDES INSPECTOR-VP AD SALES WEST, Sarita Emmanuel Primary Care Unavai lable Cleemput HIDES INSPECTOR-VP AD SALES WEST, Sarita Emmanuel Referring Jayy Roach MD, Demetrice Portillo Attending Unavailable Cleemput HIDES INSPECTOR-VP AD SALES WEST, Sarita Emmanuel Primary Care Unavai lable Cleemput HIDES INSPECTOR-Sarita WHITE Primary Care Unavai lable Cleemput HIDES INSPECTOR-CHRISTOPHER, Sarita Emmanuel Attending Jayy lable Cleemput KIESHA - ESTHER, Sarita Costello Primary Care Provider SARITA BEDOYA Referring Unavailable CLEEMPUT, SARITA Costello Primary Care Unavailable Unavailable Primary Care Provider Unavailabl e Cleemput HIDES INSPECTOR - MANAGER INFUSION, Sarita Costello Primary Care Provider Cleemput HIDES INSPECTOR-VP AD SALES WEST, Sarita Costello Primary Care Provider SARITA BEDOYA Primary Care Unavailable BRIDGER SIMS Referring Unavailable CLEEMPJOAQUINA, SARITA Costello Primary Care Unavailable EVANGELIST JENKINS Attending Unavailable BRIDGER SIMS Attending Unavailable SARITA BALLARD Attending Unavailable XU, SARITA Attending Unavailable BETHANYBRIDGER STANLEY Attending Unavailable CARMELA LITTLE Attending Unavailable XU, SARITA Attending Unavailable BRIDGER SIMS Attending Unavailable Allergies Allergy ClassificationReported Allergen(s)Allergy TypeDate of OnsetReaction(s) Facility (1 source)Adhesive agentDrug allergy (disorder)[facility] Repository (2 sources)Latex; Translations: [LATEX]Drug allergy (disorder)62-96-4429OncnrReg[facility] (1 source)morphineDrug AllergyBarney [facility]'S [facility] Repository (1 source)LatexDrug allergy (disorder)21-24-8578[facility] (5 sources)LatexPropensity to adverse reactions to azpp12-64-3749WcvvnMBVWellmont Health System (19 sources)Hydrocortisone; Translations: [HYDROCORTISONE]Drug Itetztx14-92-7255 [facility] Repository (20 sources)CortisoneDrug Nagzmpv95-37-8134EnbaWFOE Healthcare Work Phone: (20 sources)LatexPropensity to adverse rnxpniclj37-29-1903BwmnvBYVP Healthcare Work Phone: (20 sources)MorphineDrug Tulsdph01-29-8036Iti [facility] Medications Current Medications MedicationDrug Class(es)DatesSig (Normalized)Sig (Original)multivit-min/ferrous fumarate (MULTI VITAMIN ORAL) (2 sources)take 1 tablet by mouth once dailymultivit-min/ferrous fumarate (MULTI VITAMIN ORAL) Take 1 tablet by mouth daily. Activetake 1 tablet by mouth once dailymultivit-min/ferrous fumarate (MULTI VITAMIN ORAL) Take 1 tablet by mouth daily. 0 Activeondansetron 4 mg disintegrating oral tablet (3 sources)Serotonin-3 Receptor AntagonistStart: 80-50-9854gace 1 tablet by mouth three times daily as needed for nauseaondansetron (ZOFRAN-ODT) 4 MG disintegrating tablet Take 1 tablet by mouth 3 times daily as needed for Nausea or Vomiting 6 tablet 04/16/2023 Activepolysaccharide iron complex 391 mg oral capsule (20 sources)Start: 05-07-2025 End: 11-18-2147plrp 1 capsule by mouth once dailyiron polysaccharides (ProFe) 391.3 (180 Fe) MG capsule Indications: Low hemoglobin Take 1 capsule (391.3 mg) by mouth Daily 30 capsule 3 05/07/2025 06/15/2025 ActiveStart: 03-27-2024 End: 07-31-4758avgx 1 capsule by mouth once dailyiron polysaccharides (ProFe) 391.3 (180 Fe) MG capsule Indications: Anemia affecting in second trimester ([facility]) Take 1 capsule (391.3 mg) by mouth Daily 30 capsule 6 03/27/2024 03/27/2025 ActivePrenatal Vit-Fe Fumarate-FA ( VITAMIN PO) (20 sources) Vit-Fe Fumarate-FA ( VITAMIN PO) Indications: Missed menses , , unspecified gestational age ([facility]-HCC) Take by mouth ActivePrenatal Vit-Fe Fumarate-FA ( VITAMIN PO) Indications: Missed menses , , unspecified gestational age Take by mouth ActivePrenatal Vit-Fe Fumarate-FA ( VITAMIN PO) Take by mouth Activeprenatal vits62/FA/om3/dha/epa ( GUMMY ORAL) (2 sources) vits62/FA/om3/dha/epa ( GUMMY ORAL) Take by mouth. Activeprenatal vits62/FA/om3/dha/epa ( GUMMY ORAL) Take by mouth. 0 Active Completed/Discontinued Medications MedicationDrug Class(es)DatesSig (Normalized)Sig (Original)levonorgestrel 0.834524 mg/hr intrauterine system (1 source)Progestin, Progestin-containing Intrauterine Device End: 49-67-9675rkwykbbnqrmltZ (MIRENA) 20 mcg/24 hours (8 yrs) 52 mg IUD 1 each by intrauterine route once. 0 09/25/2023 Discontinued (Therapy completed) Problems Active Problems Problem ClassificationProblemDateDocumented DateEpisodic/ChronicContraceptive and procreative management (3 sources)Encounter for removal of intrauterine contraceptive device; Translations: [Contraception ]Onset: 349448-10-6747JptiiodhWlyfvbvevmtsj and screening for infectious disease (4 sources)Encounter for screening for other viral diseases; Translations: [ENC SCREENING FOR OTH VIRAL DZ]Onset: 23-57-5604KqrwehepQrppaovlk disorders (20 sources)Secondary amenorrhea; Translations: [Missed period]Onset: 11-21-2019 11-25-5604FjtyxpaYzmyiemmjvx deficiencies (2 sources)Serum iron low; Translations: [Iron deficiency]53-84-9402Zxwwbjxo Other complications of ; puerperium affecting management of mother (3 sources)Obesity complicating childbirth; Translations: [OBESITY COMPLICATING CHILDBIRTH]Onset: 80-13-4139XxyasxtPpaat female genital disorders (2 sources)Intrauterine synechiae; Translations: [Intrauterine synechiae] 05-07-6919FyocbxjfJxene nutritional; endocrine; and metabolic disorders (1 source)Obesity, unspecified; Translations: [OBESITY UNSPECIFIED]Onset: 60-99-9828RjanzedLealt screening for suspected conditions (not mental disorders or infectious disease) (4 sources)Patient encounter status; Translations: [Encounter for other specified screening]04-70-2017GvhznqyaQfovhizk codes; unclassified (2 sources)Gestation period, 20 weeks; Translations: [20 weeks gestation of ]95-39-2284UlabxhsgXtbqkfqv codes; unclassified (2 sources)Gestation period, 24 weeks; Translations: [24 weeks gestation of ]93-47-9268NkmzfhnbMvsvzqes codes; unclassified (2 sources)Gestation period, 28 weeks; Translations: [28 weeks gestation of ]19-05-5509KciphpshQschkcec codes; unclassified (2 sources)Gestation period, 30 weeks; Translations: [30 weeks gestation of ]79-20-4968YddrkyxmSblkhhpl codes; unclassified (2 sources)Gestation period, 32 weeks; Translations: [32 weeks gestation of ]81-71-5406AehhvqfzOgpkbmwa codes; unclassified (2 sources)Gestation period, 34 weeks; Translations: [34 weeks gestation of ]64-21-3826OtowwekzPfdopeqh codes; unclassified (1 source)39 weeks gestation of ; Translations: [39 WEEKS GESTATION OF ]Onset: 30-34-3529Fxjzrfgk codes; unclassified (1 source)36 weeks gestation of ; Translations: [36 WEEKS GESTATION OF ]Onset: 09-72-0278Kuzuhwtlc and history of mental health and substance abuse codes (1 source)Personal history of nicotine dependence; Translations: [PERSONAL HISTORY OF NICOTINE DEPEND]Onset: 69-95-1071KqjbaodaKzpxolmuq cord complication (1 source)Labor and delivery complicated by cord around neck, without compression, not applicable or unspecified; Translations: [L AND D COMP CORD NECK NO COMPRS NA/UNS]Onset: 82-76-7875Cxesgqjx Past or Other Problems Problem ClassificationProblemDateDocumented DateEpisodic/ChronicOpen wounds of extremities (2 sources)Laceration of left middle finger; Translations: [Laceration without foreign body of left middle finger without damage to nail, initial encounter] Onset: 329526-57-2939PikdgqatRgqup complications of (2 sources) size does not accord with dates; Translations: [Uterine size- date discrepancy, unspecified trimester]91-05-2728CogneshmEpkoz infections; including parasitic (4 sources)Personal history of other infectious and parasitic diseases; Translations: [PERSONAL HX OTH INF ANDPARASITIC DZ]Onset: 76-45-2085Sdptdrth Other and delivery including normal (20 sources)Encounter for supervision of normal , unspecified, third trimester; Translations: [Encounter for supervision of normal , unspecified, unspecified trimester]Onset: 513119-89-4499AgwowaeaLxusrfeg codes; unclassified (2 sources)Gestation period, 36 weeks; Translations: [36 weeks gestation of ]83-54-8409NxtspdtrSovitdie codes; unclassified (20 sources)Gestation period, 15 weeks; Translations: [15 weeks gestation of ]Onset: 520687-97-7249Ddzyhulh Results Test NameValueInterpretationReference RangeFacilityUrinalysis macro (dipstick) panel (U)on 95-76-9210Zwhrhhskw, UANegativeNegative - 4(70) +++ mg/dLNOMS HealthcareBlood, UANegativeNegative - 50 Haseeb/mcLNOMS HealthcareClarity, UAClear NOMS HealthcareColor, UAYellowNOMS HealthcareGlucose, UANegativeNegative - 2000(110) ++++ mg/dLNOMS HealthcareInterpretation and review of laboratory resultsAbnormalNOMS HealthcareKetones, UANegativeNegative - 160(16) ++++ mg/dL NOMS HealthcareLeukocytes, UANegativeNegative - 500+++ Ronaldo/mcLNOMS Healthcare Nitrite, UANegativeNegative - PositiveNOMS HealthcarepH, UA6.05 - 9NOMS HealthcareProtein, UATraceNegative - 2000(20) ++++ mg/dLNOMS HealthcareSpec Grav, UA1.0201 - 1.03NOMS HealthcareUrobilinogen, UA2.00.2 - 12 mg/dLNOMS HealthcareNOMS HealthcareUS OB FOLLOW UP TRANSABDOMINAL APPROACHon 04-83-0309MM OB FOLLOW UP TRANSABDOMINAL APPROACHFINDINGS: A single, live intrauterine is present with normal cardiac rate of 132 beats per minute. Normal activity and amniotic fluid volume. Amniotic fluid index is 15 cm. Morphology is grossly normal. The placenta is anterior, not associated with the cervical os. The current sonographic age is 33 weeks and 3 days, based on the following measurements: BPD 8.1 cm (32 weeks, 3 days) Head Circumference 30.7 cm (34 weeks, 1 day) Abdominal Circumference 29.1 cm (33 weeks, 0 days) Femur Length 6.7 cm (34 weeks, 2 days) Presentation Cephalic Weight (g) by Percentile 60.7 % * These measurements result in an estimated date of delivery of August 15, 2025. The current estimated weight is 2205 grams (4 pounds, 14 ounces). Persistent posterior uterine synechiae, minimal change. IMPRESSION: 1. Single, live intrauterine , current sonographic age of 33 weeks and 3 days, with an estimated date of delivery of August 15, 2025 (prior VANGIE August 20, 2025) 2. Persistent synechiae * Estimated Weight (g) by Percentile is based upon an accurate estimated age based on last menstrual period. TRANSCRIBED BY: ELECTRONICALLY SIGNED BY: Liyah FernándezNot AvailableComment on above:Order Comment: US OB SCAN FOR GROWTH Estimated Date of Delivery: 08/19/25 Gestational Age as of 06/15/2025: 36i3mXklzcqsxzd macro (dipstick) panel (U)on 19-63-5836Uddjwoscs, UANegativeNegative - 4(70) +++ mg/dLNOMS HealthcareBlood, UANegativeNegative - 50 Haseeb/mcLNOMS HealthcareClarity, UAClearNOMS Healthcare Color, UAYellowNOMS HealthcareGlucose, UANegativeNegative - 1999(110) ++++ mg/dL NOMS HealthcareInterpretation and review of laboratory resultsNormalNOMS HealthcareKetones, UANegativeNegative - 160(16) ++++ mg/dLNOMS Healthcare Leukocytes, UANegativeNegative - 500+++ Ronaldo/mcLNOMS HealthcareNitrite, UA NegativeNegative - PositiveNOMS HealthcarepH, UA6.05 - 9NOMS HealthcareProtein, UANegativeNegative - 2000(20) ++++ mg/dLNOMS HealthcareSpec Grav, UA1.0201 - 1.03NOMS HealthcareUrobilinogen, UA0.20.2 - 12 mg/dLNOMS HealthcareNOMS HealthcareUrinalysis macro (dipstick) panel (U)on 85-99-8266Qrwcwsezx, UA NegativeNegative - 4(70) +++ mg/dLNOMS HealthcareBlood, UAPositiveNegative - 50 Haseeb/mcLNOMS HealthcareClarity, UAClearNOMS HealthcareColor, UAYellowNOMS HealthcareGlucose, UANegativeNegative - 2000(110) ++++ mg/dLNOMS Healthcare Interpretation and review of laboratory resultsAbnormalNOMS HealthcareKetones, UANegativeNegative - 160(16) ++++ mg/dLNOOK HealthcareLeukocytes, UANegative Negative - 500+++ Ronaldo/mcLNOOK HealthcareNitrite, UANegativeNegative - Positive NOMS HealthcarepH, UA65 - 9NOMS HealthcareProtein, UANegativeNegative - 2000(20) ++++ mg/dLNOOK HealthcareSpec Grav, UA1.0151 - 1.03NOOK HealthcareUrobilinogen, UA1.00.2 - 12 mg/dLNOOK HealthcareNOOK HealthcareCCF FERRITINon 06-05-2025 Ferritin [Mass/Vol]5 ng/mLLow8.0 - 252.0 ng/mLNOMS HealthcareInterpretation and review of laboratory resultsAbnormalNOResearch Medical Center-Brookside CampusCLINISYNCNOMS HealthcareALL CBC WITH AUTO DIFFon 28-25-4456MVQDRVHWM ABSOLUTE JVGW4HOTDResearch Medical Center-Brookside Campus Basophils/100 WBC (Bld)0.3 %0.2 - 2.0 %NOMS HealthcareEosinophils/100 WBC (Bld) 0.7 %Low0.9 - 7.0 %[facility] HealthcareErythrocyte distribution width (RBC) [Ratio] 13.9 %11.0 - 15.0 %NOMS HealthcareHematocrit (Bld) [Volume fraction]28.1 %Low 36.0 - 48.0 %[facility] HealthcareHemoglobin (Bld) [Mass/Vol]9.1 g/dLLow12.0 - 16.0 g/dLSt. Lukes Des Peres HospitalIMMATURE GRANULOCYTES ABS AUTO0.07HighNOOK HealthcareImmature granulocytes/100 WBC (Bld)0.7 %High0.0 - 0.5 %[facility] HealthcareInterpretation and review of laboratory resultsAbnormSt. Christopher's Hospital for ChildrenLYMPHOCYTES ABSOLUTE AUTO1.2 NOMS HealthcareLymphocytes/100 WBC (Bld)12.6 %Low20.5 - 60.0 %[facility] HospitalMCH (RBC) [Entitic mass]24.9 pgLow26.7 - 34.0 pgNOResearch Medical Center-Brookside CampusMCHC (RBC) [Mass/Vol]32.4 g/dL29.9 - 35.2 g/dLSt. Lukes Des Peres HospitalMCV (RBC) [Entitic vol]77 fL Low81.0 - 99.0 fLNOResearch Medical Center-Brookside CampusMONOCYTES ABSOLUTE AUTO0.7NOMS Healthcare Monocytes/100 WBC (Bld)7.2 %1.7 - 12.0 %NOMS HealthcareNEUTROPHILS ABSOLUTE AUTO 7.7HighNOMS HealthcareNeutrophils/100 WBC (Bld)78.5 %High43.0 - 75.0 %NOMS HealthcarePlatelet mean volume (Bld) [Entitic vol]10.2 fL9.5 - 13.5 fLNOMS HealthcareTBH EO #0.1NOMS HealthcareTBH [id number] HealthcareTBH RBC3.65LowNOMS HealthcareTBH WBC9.8NOMS HealthcareCLINISYNCNOMS HealthcareUS OB FOLLOW UP TRANSABDOMINAL APPROACHon 75-43-4964IB OB FOLLOW UP TRANSABDOMINAL APPROACH FINDINGS: Comparison [...] BY: ELECTRONICALLY SIGNED BY: Pedro Luis Packer MDNormalNot AvailableComment on above:Order Comment: US OB SCAN FOR GROWTH Estimated Date of Delivery: 08/19/25 Gestational Age as of 05/12/2025: 88z5gQltzlltogs macro (dipstick) panel (U)on 13-29-3186Dumskljnu, UANegativeNegative - 4(70) +++ mg/dLNOOK HealthcareBlood, UANegativeNegative - 50 Haseeb/mcLNOOK HealthcareClarity, UAClearNOOK Healthcare Color, UAYellowNOOK HealthcareGlucose, UANegativeNegative - 2000(110) ++++ mg/dL [facility] HealthcareInterpretation and review of laboratory resultsNormalOREM COMMUNITY [facility]ITAL HealthcareKetones, UANegativeNegative - 160(16) ++++ mg/dLNOResearch Medical Center-Brookside Campus Leukocytes, UANegativeNegative - 500+++ Ronaldo/mcLNOOK HealthcareNitrite, UA NegativeNegative - PositiveNOOK HealthcarepH, UA6.55 - 9NOOK HealthcareProtein, UANegativeNegative - 2000(20) ++++ mg/dLNOOK HealthcareSpec Grav, UA1.0151 - 1.03NOOK HealthcareUrobilinogen, UA1.00.2 - 12 mg/dLNOResearch Medical Center-Brookside CampusNOOK HealthcareALL CBC WITH AUTO DIFFon 80-31-3944FPEUGYKIN ABSOLUTE AUTO0.1NOMS HealthcareBasophils/100 WBC (Bld)0.5 %0.2 - 2.0 %NOMS HealthcareEosinophils/100 WBC (Bld)1.6 %0.9 - 7.0 %[facility] HospitalErythrocyte distribution width (RBC) [Ratio]14 %11.0 - 15.0 %[facility] HospitalHematocrit (Bld) [Volume fraction]29.8 % Low36.0 - 48.0 %[facility] HospitalHemoglobin (Bld) [Mass/Vol]9.5 g/dLLow12.0 - 16.0 g/dLSt. Lukes Des Peres HospitalIMMATURE GRANULOCYTES ABS AUTO0.08HighNOResearch Medical Center-Brookside Campus Immature granulocytes/100 WBC (Bld)0.8 %High0.0 - 0.5 %[facility] Interpretation and review of laboratory resultsAbnoRoxborough Memorial Hospital LYMPHOCYTES ABSOLUTE AUTO1.2NOMS [facility] HospitalLymphocytes/100 WBC (Bld)12.6 %Low 20.5 - 60.0 %[facility] InstituteH (RBC) [Entitic mass]25.2 pgLow26.7 - 34.0 pgNOResearch Medical Center-Brookside CampusMCHC (RBC) [Mass/Vol]31.9 g/dL29.9 - 35.2 g/dLFreeman Heart InstituteV (RBC) [Entitic vol]79 fLLow81.0 - 99.0 fLSt. Lukes Des Peres HospitalMONOCYTES ABSOLUTE AUTO0.7 [facility] HealthcareMonocytes/100 WBC (Bld)7.7 %1.7 - 12.0 %[facility] NEUTROPHILS ABSOLUTE AUTO7.2HighNOResearch Medical Center-Brookside CampusNeutrophils/100 WBC (Bld)76.8 % High43.0 - 75.0 %[facility] HospitalPlatelet mean volume (Bld) [Entitic vol]10.8 fL 9.5 - 13.5 fLSt. Lukes Des Peres HospitalTBH EO #0.2NOMS HealthcareTBH [id number] Medical Center-Brookside Campus TBH RBC3.77LowNOResearch Medical Center-Brookside CampusTBH WBC9.4NOOK HealthcareCLINISYNCNOMS HealthcareUS OB LIMITED 1+ FETUSESon 84-06-6468HJ OB LIMITED 1+ FETUSESEXAM: US OB LIMITED 1+ FETUSES HISTORY: Follow [...] II, MD, PHD at 05-May-2025 07:59:10 AM [facility] [place] TeleradiologyNormalNot AvailableComment on above:Order Comment: US OB INCOMPLETE ANATOMY Estimated Date of Delivery: 08/19/25 Gestational Age as of 04/13/2025: 91s3hXambgnhfnj macro (dipstick) panel (U)on 12-32-1740Mfpywhamo, UANegativeNegative - 4(70) +++ mg/dLNOMS HealthcareBlood, UANegativeNegative - 50 Haseeb/mcLNOMS HealthcareClarity, UAClearNOMS Healthcare Color, UAStrawNOOK HealthcareGlucose, UANegativeNegative - 2000(110) ++++ mg/dL [facility] HealthcareInterpretation and review of laboratory resultsAbnormalNOOK HealthcareKetones, UANegativeNegative - 160(16) ++++ mg/dLNOOK Healthcare Leukocytes, UANegativeNegative - 500+++ Ronaldo/mcLNOOK HealthcareNitrite, UA NegativeNegative - PositiveNOMS HealthcarepH, UA65 - 9NOMS HealthcareProtein, UA PositiveNegative - 2000(20) ++++ mg/dLNOMS HealthcareSpec Grav, UA1.031 - 1.03 NOMS HealthcareUrobilinogen, UA1.00.2 - 12 mg/dLNOMS HealthcareNOMS HealthcareUS OB 14+ WEEKS ANATOMY SCANon 47-48-7996CG OB 14+ WEEKS ANATOMY SCANEXAM: US OB 14+ WEEKS ANATOMY SCAN HISTORY: [...] II, MD, PHD at 07-Apr-2025 07:25:13 AM [facility] [place] TeleradiologyNormalNot AvailableComment on above:Order Comment: US OB ANATOMY SINGLE W US OB CERVICAL LENGTH Estimated Date of Delivery: 08/19/25 Gestational Age as of 03/03/2025: 99o3eCHQ, SERUM, OPEN SPINA BIFIDAon 03-05-2025 AFP MOM1.27.NOMS HealthcareAFP VALUE37.2 ng/mL.NOMS HealthcareCOMMENT:Comment. NOMS HealthcareComment on above:Crystal Mancilla, Ph.D., [facility] Director References: Available Upon Request. Multiples Of Median Cutoffs For AFP Elevations Hill 2.5 Black 2.8 IDD 2.0 Twins 4.5 Abbreviation Definitions IDD - Insulin Dep Diabetes OSBR - Open Spina Bifida Risk For further inquiries contact [facility] at [phone]. This test was developed and its performance characteristics determined by [employer]. It has not been cleared or approved by the Food and Drug Administration. Performed at: [facility] [address] [facility], [place], [place] [id number] Pediatric Neuropsychologist: Nickolas Flynn [facility], Phone: [phone] GEST. AGE ON COLLECTION DATE15.9. weeksNOMS HealthcareGESTAT. AGE BASED ON Ultrasound.NOMS HealthcareComment on above:15.9 on 03/03/2025 Recalculations are not recommended when gestational dating by LMP and ultrasound are within 10 days. INSULIN DEP DIABETESNo.NOMS HealthcareINTERPRETATIONComment.[facility] Healthcare Comment on above:Interpretation: Screen Negative This result is screen negative for [...] Customer Services to discuss available options. The [place] [employer] recommends amniocentesis be offered to women age 35 and older. MATERNAL AGE AT EDD29.7. yrNOOK HealthcareMULTIPLE GESTATIONNo.[facility] OSBR RISK 1 [id number].[facility] HealthcareRACECaucasian.[facility] HospitalRESULTSReport. [facility] HealthcareTEST RESULTS:Negative.[facility] KsniegsmrsEAAXQH914. lbsNOMS HealthcareN N ULTRASOUND [id number] [phone] N 1 [address] White/ CLINISYNCOREM COMM[facility] HealthcareUrinalysis macro (dipstick) panel (U)on 03-03-2025 Bilirubin, UANegativeNegative - 4(70) +++ mg/dLNOMS HealthcareBlood, UANegative Negative - 50 Haseeb/mcLNOOK HealthcareClarity, UAClearNOOK HealthcareColor, UA YellowNOMS HealthcareGlucose, UANegativeNegative - 2000(110) ++++ mg/dLNOOK HealthcareInterpretation and review of laboratory resultsAbnormalSt. [facility]ukes [facility] Ketones, UANegativeNegative - 160(16) ++++ mg/dLNOOK HealthcareLeukocytes, UA NegativeNegative - 500+++ Ronaldo/mcLNOOK HealthcareNitrite, UANegativeNegative - PositiveNOMS HealthcarepH, UA7.55 - 9NOMS HealthcareProtein, UATraceNegative - 2000(20) ++++ mg/dLNOOK HealthcareSpec Grav, UA1.021 - 1.03NOOK Healthcare Urobilinogen, UA0.20.2 - 12 mg/dLNOOK HealthcareNOMS HealthcareBOX TESTon [id number] TEST SENT OUTUNPROTESTANT HOSPITAL SminphgjfaZMB7JZHYGASYN HealthcareBOX2 03/02/25NOOK HealthcareUNITY BOX CLINISYMemphis VA Medical CenterHCG ( test) Ql (U)on 79-83-7809Nrnztwkseqgbnn and review of laboratory resultsAbnormalNOMS HealthcarePreg Test, UrPositive NegativeNOMS HealthcareNo Panel Informationon 80-45-2437NVBD HealthcareUS OB TRANSVAGINALon 64-21-7409BP OB TRANSVAGINALEXAM: US OB TRANSVAGINAL HISTORY: Dating. COMPARISON: None [...] to a gestational age of 13 weeks 2days (+/- 8 days). There is no subchorionic hemorrhage visualized. A yolk sac is not visualized. IMPRESSION: 1. Single, live intrauterine gestation with today's ultrasound measurements correlating to a gestational age of 13 weeks 2 days (+/- 8 days). VANGIE by today's ultrasound is 08/19/2025. 2. Bilateral ovaries not visualized. Interpreted by: Electronically signed by HEENA BHARDWAJ II, MD, PHD at 16-Feb-2025 10:22:48 AM [facility] [place] TeleradiologyNormalNot AvailableComment on above:Order Comment: US OB TRANSVAGINAL No LMP recorded.Urinalysis macro (dipstick) panel (U)on 11-53-6701Bjpumduuf, UA NegativeNegative - 4(70) +++ mg/dLNOMS HealthcareBlood, UANegativeNegative - 50 Haseeb/mcLNOMS HealthcareClarity, UAClearNOMS HealthcareColor, UAYellowNOMS HealthcareGlucose, UANegativeNegative - 2000(110) ++++ mg/dLNOMS Healthcare Interpretation and review of laboratory resultsNormalNOMS HealthcareKetones, UA NegativeNegative - 160(16) ++++ mg/dLNOMS HealthcareLeukocytes, UANegative Negative - 500+++ Ronaldo/mcLNOMS HealthcareNitrite, UANegativeNegative - Positive NOMS HealthcarepH, UA75 - 9NOMS HealthcareProtein, UANegativeNegative - 1999(20) ++++ mg/dLNOMS HealthcareSpec Grav, UA1.0251 - 1.03NOMS HealthcareUrobilinogen, UA0.20.2 - 12 mg/dLNOOK HealthcareALL HCG, QUANTITATIVEon 01-14-2025 Interpretation and review of laboratory resultsAbnormalSt. Lukes Des Peres HospitalMHPT HCG, [id number] HealthcareComment on above: Non-preg premeno <=5 Postmeno <=8 Male <=3 If HCG results do not concur with clinical observations, additional testing to confirm results is recommended. Original Ordering Provider: BRIDGER MORSE DO FAAcadia HealthcareHCG, Quanton [id number], Utoja574882.0 mIU/mL98 Fox StreetComment on above:Result Comment: Non-preg premeno <=5 Postmeno <=8 Male <=3 If HCG results do not concur with clinical observations, additional testing to confirm results is recommended.Performed By: #### BHCG #### [facility] [address] [place] [address] Pediatric Neuropsychologist: Frankie Sen MDHCG, Quantitative, Pregnancyon 79-34-7161GKU.beta subunit [id number] m[IU]/mLBon Secours St. Francis Medical CenterComment on above: Non-preg premeno <=5 Postmeno <=8 Male <=3 If HCG results do not concur with clinical observations, additional testing to confirm results is recommended. Interpretation and review of laboratory resultsAbRiverside Tappahannock Hospital [facility] SystemXR FINGER LEFT (MIN 2 VIEWS)on 11-02-5095JK FINGER LEFT (MIN 2 VIEWS)EXAMINATION: THREE XRAY VIEWS OF THE LEFT FINGERS 09/13/2024 6:42 pm COMPARISON: None. HISTORY: ORDERING SYSTEM PROVIDED HISTORY: lac TECHNOLOGIST PROVIDED HISTORY: lac Specify which digit to image->Third FINDINGS: Bone: No acute fracture. Mineralization: Normal bone mineralization. Joint: No dislocation. No significant degenerative changes. Soft tissues: Unremarkable. IMPRESSION: No acute osseous abnormality. Interpreted by: Koffi Ortez MD Signed by: Koffi Ortez MD 09/13/24 Final resultNormalMerNew Milford HospitalXR Finger - left 2 Viewson 27-95-4725Ii acute osseous abnormality. [facility] MACRINA CONSOLIDATEDEXAMINATION: THREE XRAY VIEWS OF THE LEFT FINGERS 09/13/2024 6:42 pm COMPARISON: None. HISTORY: ORDERING SYSTEM PROVIDED HISTORY: lac TECHNOLOGIST PROVIDED HISTORY: lac Specify which digit to image->Third FINDINGS: Bone: No acute fracture. Mineralization: Normal bone mineralization. Joint: No dislocation. No significant degenerative changes. Soft tissues: Unremarkable. [facility] Koffi Osuna MD - 09/13/2024 EXAMINATION: THREE XRAY VIEWS OF THE LEFT FINGERS 09/13/2024 6:42 pm COMPARISON: None. HISTORY: ORDERING SYSTEM PROVIDED HISTORY: lac TECHNOLOGIST PROVIDED HISTORY: lac Specify which digit to image->Third FINDINGS: Bone: No acute fracture. Mineralization: Normal bone mineralization. Joint: No dislocation. No significant degenerative changes. Soft tissues: Unremarkable. IMPRESSION: No acute osseous abnormality. [facility] HospitalRadiology Study observation (narrative)Healthsouth Medical CenterVehcon [facility] HospitalXR Finger - left 2 ViewsOrdered By: Koffi Ortez on 12-24-8977Sux [facility] State HospitalExtreme DA Work Phone: ALL CBC WITH AUTO DIFFon [id number] ABSOLUTE AUTO0.0NOMS HealthcareBasophils/100 WBC (Bld)0.2 %0.2 - 2.0 %[facility] Eosinophils/100 WBC (Bld)0.8 %Low0.9 - 7.0 %NOMS HealthcareErythrocyte distribution width (RBC) [Ratio]13.2 %11.0 - 15.0 %[facility]OMS HealthcareHematocrit (Bld) [Volume fraction]25.7 %Low36.0 - 48.0 %[facility]OMS HealthcareHemoglobin (Bld) [Mass/Vol]8.3 g/dLLow12.0 - 16.0 g/dLNOMS HealthcareIMMATURE GRANULOCYTES ABS AUTO0.09HighNOMS HealthcareImmature granulocytes/100 WBC (Bld)0.7 %High0.0 - 0.5 %[facility] HealthcareInterpretation and review of laboratory resultsAbnormalNOMS HealthcareLYMPHOCYTES ABSOLUTE AUTO1.4NOResearch Medical Center-Brookside CampusLymphocytes/100 WBC (Bld) 11.5 %Low20.5 - 60.0 %[facility] (RBC) [Entitic mass]25.5 pgLow26.7 - 34.0 [facility] CenterHC (RBC) [Mass/Vol]32.3 g/dL29.9 - 35.2 g/dLFreeman Heart InstituteV (RBC) [Entitic vol]78.8 fLLow81.0 - 99.0 [facility] MONOCYTES ABSOLUTE AUTO0.9HMercyhealth Walworth Hospital and Medical CenterMonocytes/100 WBC (Bld)7.2 %1.7 - 12.0 %[facility] HospitalNEUTROPHILS ABSOLUTE AUTO9.7HMercyhealth Walworth Hospital and Medical Center Neutrophils/100 WBC (Bld)79.6 %High43.0 - 75.0 %[facility] HospitalPlatelet mean volume (Bld) [Entitic vol]10.8 fL9.5 - 13.5 fLSaint John's Saint Francis Hospital EO #0.1NCitizens Memorial Healthcare STN232KPIJParkland Health Center RBC3.26LowSaint John's Saint Francis Hospital WBC12.2High [facility]res HospitalCLINISYNCNReynolds County [facility] CBC WITH PLATELET NO DIFFERENTIALon 75-36-8266Izmugrdjvij distribution width (RBC) [Ratio]13.0 %11.0 - 15.0 %[facility] HospitalHematocrit (Bld) [Volume fraction]28.1 %Low36.0 - 48.0 %[facility] HospitalHemoglobin (Bld) [Mass/Vol]9.2 g/dLLow12.0 - 16.0 g/dLSt. Lukes Des [facility]res Hospital Interpretation and review of laboratory resultsAbnormalReynolds [facility] (RBC) [Entitic mass]25.5 pgLow26.7 - 34.0 [facility] CenterHC (RBC) [Mass/Vol]32.7 g/dL29.9 - 35.2 g/dLFreeman Heart InstituteV (RBC) [Entitic vol]77.8 fLLow81.0 - 99.0 fLSt. Lukes Des Peres HospitalPlatelet mean volume (Bld) [Entitic vol]11.0 fL9.5 - 13.5 fL [facility] BTJ107AGGJParkland Health Center RBC3.61LowSaint John's Saint Francis Hospital WBC8.4 NOMS HealthcareCLINISYNCNOMS HealthcareUrinalysis macro (dipstick) panel (U)on 71-22-2784Whntckodh, UANegativeNegative - 4(70) +++ mg/dLNOMS HealthcareBlood, UANegativeNegative - 50 Haseeb/mcLNOMS HealthcareClarity, UAClearNOMS Healthcare Color, UAYellowNOMS HealthcareGlucose, UANegativeNegative - 1999(110) ++++ mg/dL N[facility]S HealthcareInterpretation and review of laboratory resultsAbnormalNOMS HealthcareKetones, UAPositiveNegative - 160(16) ++++ mg/dLNOMS Healthcare Leukocytes, UAPositiveNegative - 500+++ Ronaldo/mcLNOMS HealthcareNitrite, UA NegativeNegative - PositiveNOMS HealthcarepH, UA6.55 - 9NOMS HealthcareProtein, UANegativeNegative - 1999(20) ++++ mg/dLNOMS HealthcareSpec Grav, UA1.0251 - 1.03NOMS HealthcareUrobilinogen, UA1.00.2 - 12 mg/dLNOMS HealthcareNOMS HealthcareUrinalysis macro (dipstick) panel (U)on 84-77-2821Knxfwtrio, UA NegativeNegative - 4(70) +++ mg/dLNOMS HealthcareBlood, UANegativeNegative - 50 Haseeb/mcLNOMS HealthcareClarity, UAClearNOMS HealthcareColor, UAYellowNOMS HealthcareGlucose, UANegativeNegative - 1999(110) ++++ mg/dLNOMS Healthcare Interpretation and review of laboratory resultsAbnormalNOMS HealthcareKetones, UAPositiveNegative - 160(16) ++++ mg/dLNOMS HealthcareLeukocytes, UAPositive Negative - 500+++ Ronaldo/mcLNOMS HealthcareNitrite, UANegativeNegative - Positive NOMS HealthcarepH, UA5.55 - 9NOMS HealthcareProtein, UAPositiveNegative - 1999(20) ++++ mg/dLNOMS HealthcareSpec Grav, UA1.0251 - 1.03[facility] Urobilinogen, UA1.00.2 - 12 mg/dLNOMS HealthcareNOMS HealthcareUS OB GROWTHon 93-75-1800[address] [address] Ultrasound Report Signed Patient: SANGEETHA MELGOZA MR#: [id number] : 1995 Acct:[id number] Age/Sex: 28 / F ADM Date: 05/29/24 Loc: US Attending Dr: Sarita Ballard Ordering Physician: Sarita Ballard Date of Service: 05/29/24 Procedure(s): US OB growth Accession Number(s): [id number] cc: Sarita Ballard; Physician,Non-Staff M.Azra [address] [address] Patient Name: SANGEETHA MELGOZA MRN: [id number] date: 1995 Sex: F Assigned Patient Location: US Current Patient Location: US Accession/Order Number: [id number] Exam Date: 05/29/2024 08:30 Report Date: 05/29/2024 [...] M.D. Signed By: 05/29/24917 DD/ 4 TD/TT: Bagger Meat:ZACKARYHRadiology, Radiologist, - 05/29/2024 [place] [address] Ultrasound Report Signed Patient: SANGEETHA MELGOZA MR#: [id number] : 1995 Acct:[id number] Age/Sex: 28 / F ADM Date: 05/29/24 Loc: US Attending Dr: Sarita Ballard Ordering Physician: Sarita Ballard Date of Service: 05/29/24 Procedure(s): US OB growth Accession Number(s): [id number] cc: Sarita Ballard; Physician,Non-Staff M.Azra The [place] [address] Patient Name: SANGEETHA MELGOZA MRN: [id number] date: 1995 Sex: F Assigned Patient Location: US Current Patient Location: US Accession/Order Number: [id number] Exam Date: 05/29/2024 08:30 Report Date: 05/29/2024 [...] M.D. Signed By: 05/29/24917 DD/ 4 TD/TT: Bagger Meat: ANALIA HealthcareRadiology Study observation (narrative)[facility] HospitalUS OB GROWTHOrdered By: Radiologist Radiology on 13-71-1638TIQE Healthcare Work Phone: Urinalysis macro (dipstick) panel (U)on 05-27-2024 Bilirubin, UANegativeNegative - 4(70) +++ mg/dLNOMS HealthcareBlood, UANegative Negative - 50 Haseeb/mcLNOMS HealthcareClarity, UAClearNOMS HealthcareColor, UA YellowNOMS HealthcareGlucose, UANegativeNegative - 1999(110) ++++ mg/dLNOMS HealthcareInterpretation and review of laboratory resultsAbnormalNOMS Healthcare Ketones, UANegativeNegative - 160(16) ++++ mg/dLNOMS HealthcareLeukocytes, UA PositiveNegative - 500+++ Ronaldo/mcLNOMS HealthcareComment on above:smallNitrite, UANegativeNegative - PositiveNOMS HealthcarepH, UA8.55 - 9[facility] Protein, UANegativeNegative - 2000(20) ++++ mg/dLNOMS HealthcareSpec Grav, UA 1.0201 - 1.03NOMS HealthcareUrobilinogen, UA0.20.2 - 12 mg/dLNOMS HealthcareNOMS HealthcareUrinalysis macro (dipstick) panel (U)on 43-83-8641Errqbzvwa, UA NegativeNegative - 4(70) +++ mg/dLNOMS HealthcareBlood, UANegativeNegative - 50 Haseeb/mcLNOMS HealthcareClarity, UAClearNOMS HealthcareColor, UAYellowNOMS HealthcareGlucose, UANegativeNegative - 2000(110) ++++ mg/dLNOMS Healthcare Interpretation and review of laboratory resultsAbnormalNOMS HealthcareKetones, UANegativeNegative - 160(16) ++++ mg/dLNOMS HealthcareLeukocytes, UATrace Negative - 500+++ Ronaldo/mcLNOMS HealthcareNitrite, UANegativeNegative - Positive NOM[facility] HealthcarepH, UA8.55 - 9NOMS HealthcareProtein, UATraceNegative - 2000(20) ++++ mg/dLNOMS HealthcareSpec Grav, UA1.0201 - 1.03NOMS HealthcareUrobilinogen, UA0.20.2 - 12 mg/dLNOMS HealthcareNOMS HealthcareUS OB GROWTHon 77-80-7459[place]rm[place], [place] [address] Ultrasound Report Signed Patient: SANGEETHA MELGOZA MR#: [id number] : 1995 Acct:[id number] Age/Sex: 28 / F ADM Date: 04/29/24 Loc: [facility] Attending Dr: Sarita Ballard Ordering Physician: Sarita Ballard Date of Service: 04/29/24 Procedure(s): US OB growth Accession Number(s): [id number] cc: Sarita Ballard; Physician,Non-Staff M.D. The [place] [address] Patient Name: SANGEETHA MELGOZA MRN: [id number] date: 1995 Sex: F Assigned Patient Location: [facility] Current Patient Location: [facility] Accession/Order Number: [id number] Exam Date: 04/29/2024 11:30 Report Date: 04/29/2024 [...] Signed By: 04/29/24 1247 DD/ 1245 TD/TT: Bagger Meat:TBHRadiology, Radiologist, MD - 04/29/2024 [place] [address] Ultrasound Report Signed Patient: SANGEETHA MELGOZA MR#: [id number] : 1995 Acct:[id number] Age/Sex: 28 / F ADM Date: 04/29/24 Loc: [facility] Attending Dr: Sarita Ballard Ordering Physician: Sarita Ballard Date of Service: 04/29/24 Procedure(s): US OB growth Accession Number(s): [id number] cc: Sarita Ballard; Physician,Non-Staff Ashleigh The [place] [id number] Patient Name: SANGEETHA MELGOZA MRN: [id number] date: 1995 Sex: F Assigned Patient Location: [facility] Current Patient Location: [facility] Accession/Order Number: [id number] Exam Date: 04/29/2024 11:30 Report Date: 04/29/2024 [...] Signed By: 04/29/24 1247 DD/ 1245 TD/TT: Bagger Meat: ANALIA HealthcareRadiology Study observation (narrative)NOMS HealthcareUS OB GROWTHOrdered By: Radiologist Radiology on 48-43-3368HMYO Healthcare Work Phone: no Panel InformationOrdered By: Radiologist Radiology on 18-93-7634CNXP Healthcare Work Phone: no Panel Informationon 65-16-6054Hqmrzattc Study observation (narrative)NOMS VoviciUS OB ANATOMYon 58-71-1377Sgb[place], [place] [address] Ultrasound Report Signed Patient: SANGEETHA MELGOZA MR#: [id number] : 1995 Acct:[id number] Age/Sex: 28 / F ADM Date: 01/22/24 Loc: US Attending Dr: Bridger Sims D.O. Ordering Physician: Bridger Sims D.O. Date of Service: 01/22/24 Procedure(s): US OB anatomy Accession Number(s): [id number] cc: Bridger Sims D.O.; Physician,Non-Staff MAj The [address] [address] Patient Name: SANGEETHA MELGOZA MRN: [id number] date: 1995 Sex: F Assigned Patient Location: US Current Patient Location: US Accession/Order Number: [id number] Exam Date: 01/22/2024 09:50 Report Date: 01/22/2024 [...] Signed By: 01/22/24 1100 DD/ 1058 TD/TT: Bagger Meat:TBHRadiology, Radiologist, - 01/22/[address] [address] Ultrasound Report Signed Patient: SANGEETHA MELGOZA MR#: [id number] : 1995 Acct:[id number] Age/Sex: 28 / F ADM Date: 01/22/24 Loc: US Attending Dr: Bridger Sims D.O. Ordering Physician: Bridger Sims D.O. Date of Service: 01/22/24 Procedure(s): US OB anatomy Accession Number(s): [id number] cc: Bridger Sims D.O.; Physician,Non-Staff Ashleigh The [address] [address] Patient Name: SANGEETHA MELGOZA MRN: [id number] date: 1995 Sex: F Assigned Patient Location: US Current Patient Location: US Accession/Order Number: [id number] Exam Date: 01/22/2024 09:50 Report Date: 01/22/2024 [...] Signed By: 01/22/24 1100 DD/ 1058 TD/TT: Bagger Meat: ANALIA Hernandez OB CERVICAL LENGTHon 78-71-3677[place]nw[place], [place] [address] Ultrasound Report Signed Patient: SANGEETHA MELGOZA MR#: [id number] : 1995 Acct:[id number] Age/Sex: 28 / F ADM Date: 01/22/24 Loc: US Attending Dr: Bridger Sims D.O. Ordering Physician: Bridger Sims D.O. Date of Service: 01/22/24 Procedure(s): US OB cervical length Accession Number(s): [id number] cc: Bridger Sims D.O.; Physician,Non-Staff Ashleigh The [place] [address] Patient Name: SANGEETHA MELGOZA MRN: [id number] date: 1995 Sex: F Assigned Patient Location: US Current Patient Location: Accession/Order Number: [id number] Exam Date: 01/22/2024 09:50 Report Date: 01/22/2024 [...] Signed By: 01/22/24 1100 DD/ 1058 TD/TT: Bagger Meat:TBHRadiology, Radiologist, - 01/22/[address] [address] Ultrasound Report Signed Patient: SANGEETHA MELGOZA MR#: [id number] : 1995 Acct:[id number] Age/Sex: 28 / F ADM Date: 01/22/24 Loc: US Attending Dr: Bridger Sims D.O. Ordering Physician: Bridger Sims D.O. Date of Service: 01/22/24 Procedure(s): US OB cervical length Accession Number(s): [id number] cc: Bridger Sims D.O.; Physician,Non-Staff M.Azra [place] [id number] Patient Name: SANGEETHA MELGOZA MRN: [id number] date: 1995 Sex: F Assigned Patient Location: US Current Patient Location: US Accession/Order Number: [id number] Exam Date: 01/22/2024 09:50 Report Date: 01/22/2024 [...] Signed By: 01/22/24 1100 DD/ 1058 TD/TT: Bagger Meat: ANALIA Hernandez OB TRANSVAGINALojose 34-88-0500[place], [place] [address] Ultrasound Report Signed Patient: Sangeetha Melgoza MR#: [id number] : 1995 Acct:[id number] Age/Sex: 28 / F ADM Date: 12/13/23 Loc: [facility] Attending Dr: Bridger Sims D.O. Ordering Physician: Bridger Sims D.O. Date of Service: 12/13/23 Procedure(s): US OB transvaginal Accession Number(s): [id number] cc: Bridger Mcleod D.O. The [place] [address] Patient Name: SANGEETHA MELGOZA MRN: [id number] date: 1995 Sex: F Assigned Patient Location: [facility] Current Patient Location: [facility] Accession/Order Number: [id number] Exam Date: 12/13/2023 12:33 Report Date: 12/13/2023 [...] Signed By: 12/13/23 1345 DD/ 1343 TD/TT: Bagger Meat:ZACKARYHRadiology, Radiologist, - 12/13/2023 [place] [address] Ultrasound Report Signed Patient: Sangeetha Melgoza MR#: [id number] : 1995 Acct:[id number] Age/Sex: 28 / F ADM Date: 12/13/23 Loc: [facility] Attending Dr: Bridger Sims D.O. Ordering Physician: Bridger Sims D.O. Date of Service: 12/13/23 Procedure(s): US OB transvaginal Accession Number(s): [id number] cc: Bridger Mcleod D.O. The [place] [id number] Patient Name: SANGEETHA MELGOZA MRN: [id number] date: 1995 Sex: F Assigned Patient Location: [facility] Current Patient Location: [facility] Accession/Order Number: [id number] Exam Date: 12/13/2023 12:33 Report Date: 12/13/2023 [...] Signed By: 12/13/23 1345 DD/ 1343 TD/TT: Bagger Meat: [facility] HealthcareRadiology Study observation (narrative)[facility] HospitalUS OB TRANSVAGINALOrdered By: Radiologist Radiology on 14-46-7840IUSXSt. Lukes Des Peres Hospital Work Phone: clostridium Difficile Toxin/Antigenon 05-21-2023. difficile glutamate dehydrogenase and toxins A+B IA.rapid Ql (Stl)Negative [facility] MEDICAL CENTERComment on above:No C. difficile antigen and Toxin Detected.Specimen Description.[facility]entara [facility] Medicine Office/Clinic Noteon 80-02-5508Paefde Medicine Office/Clinic NoteChief Complaint Yearly f/u History of Present Illness wellness exam VSS she gets headaches- weekly- Tylenol, Excedrin migraine, she has to go to bed, sleeps, usually gets better, no light or noise, sensitivity, no nausea, pounding she prefers as needed medication for headaches she needs a new [employer] Review of Systems General Adult ROS Fatigue: [...] has no concerns she has IUD- gave [employer] info Ordered: EKG 2. Migraines try imitrex if EKG is normal f/u in 1 month EKG normal Ordered: EKG Orders: SUMAtriptan, 1 tabs, Oral, Daily, PRN, may repeat dose after 2 hours up to a maximum of 200 mg in 24 hours, X 30 days, # 9 tabs, 0 Refill(s), 04/07/23 9:10:00 EDT, Pharmacy: [facility] [phone] Medical Decision Making Chronic conditions NOT treated during this visit that affected my overall medical decision making: [] Treatment plans discussed but not opted for at this time: [] Prescribed medication that requires intensive monitoring for toxicity: [] I have reviewed the patient?s medication list for medication interactions/contraindications and/or for upcoming procedures: [yes or no] [...] years ago Use:. Electronically signed by Aureliano POPRufinaCHRISTOPHERSarita Lien 03/08/23 11:43 [facility] CBC AUTO DIFFon 93-76-9893Plxyainrc (Bld) [#/Vol]0.0 103/ulNormal0.0-0.1The [facility] Medical CenterComment on above:Performed By: #### CBC ####[facility] [address] [place], [place] [address]Ajkexx KarenBasophils/100 WBC (Bld)0.3 %Normal0.2-2.0The [facility] Medical CenterComment on above:Performed By: #### CBC ####[facility] [address] [place] [address]Sjpubr KarenEosinophils (Bld) [#/Vol]0.1 103/ulNormal0.0-0.7The [facility] CenterComment on above:Performed By: #### CBC ####[facility] [address] [place] [address]Prrtzd KarenEosinophils/100 WBC (Bld)1.2 %Normal0.9-7.0The [facility] CenterComment on above:Performed By: #### CBC ####[facility] [address] [place] [address]Ydclcq KarenErythrocyte distribution width (RBC) [Ratio]14.1 %Normal 11.0-15.0The [facility] CenterComment on above:Performed By: #### CBC ####[facility] [address] [place], [place] [address]Gerken KarenHematocrit (Bld) [Volume fraction]32.9 %Critically low36.0-48.0The [facility] CenterComment on above:Performed By: #### CBC ####[facility] [address] [place], [place] [address]Gerken KarenHemoglobin (Bld) [Mass/Vol]11.2 g/dLCritically low12.0-16.0The [facility] CenterComment on above: Performed By: #### CBC ####[facility] [address] [place] [address] KarenIG #0.09 10e3/ulCritically high0.00-0.03 The [facility] HospitalComment on above:Performed By: #### CBC ####[facility] [address]ol[address] [place] [address] KarenIG %0.9 %Critically high0.0-0.5The [facility]wood HospitalComment on above:Performed By: #### CBC ####[facility] [address] [place] [address] KarenLymphocytes (Bld) [#/Vol]1.3 103/ulNormal1.2-3.8The [facility] Medical CenterComment on above:Performed By: #### CBC ####[facility] D[address] [place] [address] KarenLymphocytes/100 WBC (Bld)13.1 %Critically low20.5-60.0The [facility]wood HospitalComment on above: Performed By: #### CBC ####[facility] [address] [place] [address] KarenMANUAL DIFF REQNONormalThe [facility] CenterComment on above:Performed By: #### CBC ####[facility] [address] [place] [address] (RBC) [Entitic mass]29.6 lwCtokub56.7-34.0The [facility]wood HospitalComment on above: Performed By: #### CBC ####[facility] [address] [place] [address] (RBC) [Mass/Vol]34.0 g/dLNormal 29.9-35.2The [facility]wood HospitalComment on above:Performed By: #### CBC ####[facility] [address] [place] [address] (RBC) [Entitic vol]87.0 vZUyqqfa57.0-99.0The [facility] CenterComment on above:Performed By: #### CBC ####[facility] [address] [place] [address]Gerken KarenMonocytes (Bld) [#/Vol]0.9 103/ul Critically high0.3-0.8The [facility] CenterComment on above:Performed By: #### CBC ####[facility] [address] [place], [place] [address]Gerken KarenMonocytes/100 WBC (Bld)9.1 %Normal1.7-12.0The [facility] Comment on above:Performed By: #### CBC ####[facility] [address] [place], [place] [address]Gerken KarenNeutrophils (Bld) [#/Vol]7.6 103/ulCritically high1.4-6.5The [facility] CenterComment on above:Performed By: #### CBC ####[facility] [address] [place], [place] [address]Gerken KarenNeutrophils/100 WBC (Bld)75.4 %Critically high43.0-75.0The [facility] CenterComment on above:Performed By: #### CBC ####[facility] [address]qm[address]as[address] [place], [place] [address]Gerken KarenPlatelet mean volume (Bld) [Entitic vol]10.1 fLNormal9.5-13.5The [facility] Health Centerment on above:Performed By: #### CBC ####[facility] [address] [place], [place] [address]Gerken KarenPlatelets (Bld) [#/Vol]200 103/ulNormal 150-450The [facility] CenterComment on above:Performed By: #### CBC ####[facility] F[address]ldvjzxq[address] [place], [place] [address]Gerken KarenRBC (Bld) [#/Vol]3.78 106/ulCritically low4.20-5.40The Von HospitalComment on above:Performed By: #### CBC ####[facility] [address] KarenWBC (Bld) [#/Vol]10.1 103/ulNormal4.0-11.0 [facility] on above:Performed By: #### CBC ####[facility] [address] [place] [address] KarenDRUG SCREEN RAPID (URINE)on 29-38-3339LZYQudqemhtAhmwnuCLAFMJJRMor [facility] Comment on above:Performed By: #### DRUGRPD ####[facility] [address] [place] [address] KarenBARNegativeNormalNEGATIVEPomerene Hospital on above:Performed By: #### DRUGRPD ####[facility] [address] [place] [address] KarenBUP NegativeNormalNEGATIVEFlower HospitalCombrighton hospital on above:Performed By: #### DRUGRPD ####[facility] [address] [place] [address] KarenBZONegativeNormalNEGATIVEPomerene Hospital on above: Performed By: #### DRUGRPD ####[facility] [address] [place] [address] KarenCOCNegativeNormalNEGATIVEFlower HospitalComment on above:Performed By: #### DRUGRPD ####[facility] [address] [place] [address] KarenCUT-OFFSSEE BELOW NormalFlower HospitalCombrighton hospital on above:Result Comment: AMP (Amphetamine): 500ng/mL, BAR (Barbituates): 200 ng/mL, BZO (Benzodiazepines): 150 ng/mL, BUP (Buprenorphine): 10 ng/mL, JAYLA (Cocaine): 150 ng/mL, mAMP (Methamphetamine): 500 ng/mL, MTD (Methadone): 200 ng/mL, OPI (Opiates): 100 ng/mL or 2000 ng/mL, OXY (Oxycodone): 100 ng/mL, PCP (Phencyclidine): 25 ng/mL, PPX (Propoxyphene): 300 ng/mL, THC (Cannabinoids): 50 ng/mL, TCA (Trycyclic Antidepressants): 300 ng/mL Performed By: #### DRUGRPD ####[facility] [address] [place] [address] KarenDRUG CUT HEADERDRUG CLASS TEST SYSTEM CUT- OFF CONCENTRATIONS ARE FOLLOWS:NormalThe [facility] Medical CenterComment on above: Performed By: #### DRUGRPD ####[facility] [address] [place] [address] KarenmAMPNegativeNormalNEGATIVEFlower HospitalComment on above:Performed By: #### DRUGRPD ####[facility] [address] [place] [address] KarenMTDNegativeNormal NEGATIVEFlower HospitalComment on above:Performed By: #### DRUGRPD ####[facility] [address] [place] [address] KarenOPINegativeNormalNEGATIVEPremier Health HospitalComment on above:Performed By: #### DRUGRPD ####[facility] F[address]ph[address] [place] [address] KarenOXYNegativeNormalNEGATIVEFlower HospitalComment on above:Performed By: #### DRUGRPD ####[facility] C[address] [place] [address] KarenPCPNegativeNormalNEGATIVEPremier Health HospitalComment on above:Performed By: #### DRUGRPD ####[facility] S[address] [place] [address] KarenPPXNegativeNormal NEGATIVEFlower HospitalComment on above:Performed By: #### DRUGRPD ####[facility] [address]af[address]uf[address]th[address] [place] [address] KarenTCANegativeNormalNEGATIVEPremier Health HospitalComment on above:Performed By: #### DRUGRPD ####[facility] Xxsttjyivt3862 [address] KarenTHCNegativeNormalNEGATIVEFlower HospitalComment on above:Performed By: #### DRUGRPD ####[facility] Rxsslnmznk6669 [address] KarenTYPE AND SCREENon 10-78-1504UMDZ AND SCREENNegativeNormalThe [facility] CenterComment on above:Performed By: #### TNS ####[facility] Ex[address]ly[address] [place] [address] KarenCOVID-19 PCRon 71-48-7788FWEC-CoV-2, NAANot DetectedNormalNot DetectedThe [facility] CenterComment on above:Result Comment: This nucleic acid amplification test was developed and its perfomance characteristics determined by [employer]. Nucleic acid amplification tests include PCR and [...] a negative (not detected) result in this assay.Performed By: #### CVDPCR ####[facility] Rvluwjqehp8076 [address] KarenCHLAMYDIA/GONOCOCCUS EMILE (SWAB/URINE/PAPon 48-13-0266Kguhedmxe trachomatis, NAANegativeNormalNegativeFlower HospitalComment on above:Performed By: #### CT/NGNA ####[facility] Xe[address]rsd[address] [place] [address] KarenNeisseria gonorrhoeae, NAANegativeNormalNegativeThe [facility] CenterComment on above:Performed By: #### CT/NGNA ####[facility] F[address]ozlzads[address] [place] [address] KarenGROUP B STREP CULTUREon 05-04-2020S. agalactiae Ag Ql (Unsp spec)Culture Observations: Negative for Group B StreptococcusNormalThe [facility] CenterComment on above: Performed By: #### GBSCX ####[facility] D[address]qsksw[address] [place] [address] KarenCBC AUTO DIFFon 03-38-7339Jvekvsiiu (Bld) [#/Vol]0.0 103/ulNormal0.0-0.1The [facility] CenterComment on above:Performed By: #### CBC ####[facility] Qaghlddx[address] [place] [address] KarenBasophils/100 WBC (Bld)0.4 %Normal0.2-2.0The [facility] Comment on above:Performed By: #### CBC ####[facility] Fwbu[address]ej[address] [place] [address] KarenEosinophils (Bld) [#/Vol]0.1 103/ulNormal0.0-0.7The [facility] CenterComment on above:Performed By: #### CBC ####[facility] Tfkpagof[address] [place] [address] KarenEosinophils/100 WBC (Bld)1.0 %Normal0.9-7.0The [facility] CenterComment on above:Performed By: #### CBC ####[facility] Sujuypzazw[address] [place] [address] KarenErythrocyte distribution width (RBC) [Ratio]13.1 %Bwoupx37.0-15.0The [facility] CenterComment on above:Performed By: #### CBC ####[facility] [address]rex[address]azen[address] [place] [address] KarenHematocrit (Bld) [Volume fraction]34.5 %Critically low36.0-48.0 The [facility] CenterComment on above:Performed By: #### CBC ####[facility] Gpdvnusesk[address] [place] [address] Erendira Hemoglobin (Bld) [Mass/Vol]11.6 g/dLCritically low12.0-16.0[facility] Comment on above:Performed By: #### CBC ####[facility] K[address]ij[address]ok[address] [place] [address] KarenIG #0.09 10e3/ulCritically high 0.00-0.03The [facility] CenterComment on above:Performed By: #### CBC ####[facility] Zclqvcpxoa[address] [place] [address] KarenIG %0.9 %Critically high0.0-0.5The [facility] CenterComment on above: Performed By: #### CBC ####[facility] [address]jbdb[address] [place] [address] KarenLymphocytes (Bld) [#/Vol]1.2 103/ulNormal 1.2-3.8The [facility] CenterComment on above:Performed By: #### CBC ####[facility] Heyljzooze[address] [place] [address] Erendira Lymphocytes/100 WBC (Bld)12.1 %Critically low20.5-60.0The [facility] Comment on above:Performed By: #### CBC ####[facility] Cpmosedvgi[address] [place] [address] KarenMANUAL DIFF REQNONormalThe [facility] CenterComment on above:Performed By: #### CBC ####[facility] Ikhtbxfulf[address] [place] [address] KarenMCH (RBC) [Entitic mass]30.7 jxOrwqdo24.7-34.0The [facility] CenterComment on above: Performed By: #### CBC ####[facility] Xjnmntvtsx[address] [place] [address] KarMCHC (RBC) [Mass/Vol]33.6 g/dLNormal 29.9-35.2The [facility] CenterComment on above:Performed By: #### CBC ####[facility] Xvspxppdna8870 [address] KarenMCV (RBC) [Entitic vol]91.3 fRLbhlcp77.0-99.0The [facility] HospitalComment on above:Performed By: #### CBC ####[facility] [address] [place], [place] [address]Gerken KarenMonocytes (Bld) [#/Vol]0.7 103/ulNormal 0.3-0.8The [facility] CenterComment on above:Performed By: #### CBC ####[facility] [address]yvogent[address] [place] [address] Erendira Monocytes/100 WBC (Bld)6.8 %Normal1.7-12.0The [facility] CenterComment on above: Performed By: #### CBC ####[facility] Ukydxaveln[address] [place] [address] KarenNeutrophils (Bld) [#/Vol]7.8 103/ul Critically high1.4-6.5The [facility] on above:Performed By: #### CBC ####[facility] [address] [place], [place] [address]Gerken KarenNeutrophils/100 WBC (Bld)78.8 %Critically high43.0-75.0The [facility] CenterComment on above:Performed By: #### CBC ####[facility] Ed[address]pric[address] [place], [place] [address]Gerken KarenPlatelet mean volume (Bld) [Entitic vol]10.0 fLNormal9.5-13.5The [facility] CenterComment on above:Performed By: #### CBC ####[facility] Fil[address]jsj[address] [place], [place] [address]Gerken KarenPlatelets (Bld) [#/Vol]163 103/ulNormal 150-450The [facility] CenterComment on above:Performed By: #### CBC ####[facility] Xqkeubwody[address] [place] [address] KarenRBC (Bld) [#/Vol]3.78 106/ulCritically low4.20-5.40The [facility] CenterComment on above:Performed By: #### CBC ####[facility] Ab[address]henfev[address] [place] [address] KarenWBC (Bld) [#/Vol]9.9 103/ulNormal4.0-11.0 The [facility] CenterComment on above:Performed By: #### CBC ####[facility] [address] [place] [address] KarenGLUCOSE - 1HRon 84-57-8094Ckhlesk [Mass/Vol]121 mg/dLCritically rjsj97-668Tup [facility] CenterComment on above:Performed By: #### GLU1HR ####[facility] [address] [place] [address] Erendira CHLAMYDIA/GONOCOCCUS EMILE (SWAB/URINE/PAPon 33-00-8075Nzarezzlh trachomatis, EMILE NegativeNormalNegativeFlower HospitalComment on above:Performed By: #### CT/NGNA ####[facility] [address]um[address] [place] [address] KarenNeisseria gonorrhoeae, NAANegativeNormalNegativeFlower HospitalComment on above:Performed By: #### CT/NGNA ####[facility] C[address]cy[address] [place] [address] KarenTRICHAMONAS VAGINALIS. NAAon 25-05-7511Bbnrh vag by NAANegativeNormalNegativeFlower HospitalComment on above:Performed By: #### TRICHNA ####[facility] H[address]xxq[address] [place] [address] RiccardoenUS PREG ANATOMY SINGLEon 30-52-6466KF PREG ANATOMY SINGLEPROCEDURE: US PREG ANATOMY SINGLE, US PREG CERVICAL [...] Electronically authenticated by: LINDA CAICEDO Date: 2020-01-09 14:28[facility] ACOG PANEL 3: 21 to 29on 15-15-7169Wkg Gdln ACOG Testing Magruder HospitalComment on above:Performed By: #### ABORH #### [facility] [address] [place] [address] Helio KarenChlamydia, Nuc. Acid AmpPositiveAbnormalNegativeFlower HospitalComment on above:Result Comment: . Performed at: =GPerformed By: #### ABORH #### [facility] [address] [place] [address] Helio KarenDIAGNOSIS:CommentSouthview Medical Center on above:Result Comment: NEGATIVE FOR INTRAEPITHELIAL LESION OR MALIGNANCY. THIS SPECIMEN WAS RESCREENED PART OF OUR CORN POPPER PROGRAM. Performed at: WBPerformed By: #### ABORH #### [facility] [address] [place] [address] Helio KarenGonococcus, Nuc. Acid AmpNegativeNormalNegativeFlower Hospital Comment on above:Result Comment: Performed at: =GPerformed By: #### ABORH #### [facility] [address] [place] [address] Helio KarenMethodology:CommentSouthview Medical Center on above: Result Comment: This liquid based ThinPrep(R) pap test was screened with the use of an image guided system. Performed at: WBPerformed By: #### ABORH #### [facility] [address] [place] [address] Helio KarenNote:CommentSouthview Medical Center on above:Result Comment: The Pap smear is a screening test designed to aid in the detection of premalignant and malignant conditions of the uterine cervix. It is not a diagnostic procedure and should not be used as the sole means of detecting cervical cancer. Both false-positive and false-negative reports do occur. . Performed at: WBPerformed By: #### ABORH #### [facility] [address] [place] [address] Hleio KarenPerformed by:CommentSouthview Medical Center on above: Result Comment: Christal Taylor, Planning And Analysis Manager (ASCP) Performed at: WBPerformed By: #### ABORH #### [facility] [address] [place] [address] Helio KarenQC reviewed by:[facility] on above: Result Comment: Dora Stevens, Supervisory Planning And Analysis Manager (ASCP) Performed at: WBPerformed By: #### ABORH #### [facility] [address] [place] [address] Helio KarenReflex Criteria:[facility] on above: Result Comment: The HPV DNA reflex criteria were not met with this specimen result therefore, no HPV testing was performed. . Performed at: WBPerformed By: #### ABORH #### [facility] [address] [place] [address] Helio KarenSpecimen adequacy:[facility] on above:Result Comment: Satisfactory for evaluation. Endocervical and/or squamous metaplastic cells (endocervical component) are present. Performed at: WBPerformed By: #### ABORH #### [facility] [address] [place] [address] Helio Erendira..NormalThe [facility] on above:Result Comment: Performed at: WBPerformed By: #### ABORH #### [facility] [address] [place] [address] Helio KarenHGB(ELECTP) FRACTION PROFILEon 85-17-1128Nzcmajkjtr (Bld) [Mass/Vol] 97.3 %Onxhgg09.4-98.8The [facility] on above:Performed By: #### ABORH #### [facility] [address] [place] [address] Helio KarenHgb A22.7 %Normal1.8-3.2The [facility] on above: Performed By: #### ABORH #### [facility] [address] [place] [address] Helio KarenHgb C0.0 %Normal0.0The Von HospitalComment on above:Performed By: #### ABORH #### [facility] [address] [place] [address] Helio KarenHgb F0.0 %Normal0.0-2.0The [facility] CenterComment on above: Performed By: #### ABORH #### [facility] [address] [place] [address] Helio KarenHgb S0.0 %Normal0.0The [facility] CenterComment on above:Performed By: #### ABORH #### [facility] [address] [place] [address] Helio KarenHgb SolubilityNegativeNormalNegativeThe [facility] CenterComment on above:Performed By: #### ABORH #### [facility] [address] [place] [address] Helio KarenHgb VariantNoWright-Patterson Medical CenterComment on above:Performed By: #### ABORH #### [facility] [address] [place] [address] Helio KarenInterpretationCommentMagruder HospitalComment on above: Result Comment: Normal adult hemoglobin present.Performed By: #### ABORH #### [facility] [address] [place] [address] Helio KarHighline Community Hospital Specialty CenterEP B SURFACE ANTIGEN SCREENon 93-83-5990LPcKa ScreenNegativeNormal NegativeThe [facility] CenterCombrighton hospital on above:Performed By: #### ABORH #### [facility] [address] [place] [address] Helio KarenHEPATITIIS C VIRUS ANTIBODYon 32-38-4612Etd C Virus Ab<0.1Normal 0.0-0.9[facility] on above:Result Comment: Negative: < 0.8 Indeterminate: 0.8 - 0.9 Positive: > 0.9 . The CDC recommends that a positive HCV antibody result be followed up with a HCV Nucleic Acid Amplification test (238223).Performed By: #### HCV #### [facility] [address] [place] [address] Helio KarenHIV 1 AND 2 WITH REFLEXon 85-67-5769ATS Screen 4th Generation wRfx Non ReactiveNormalNon ReactiveThe [facility] CenterComment on above:Performed By: #### ABORH #### [facility] [address] [place] [address] Helio KarenRPR QUANTon 54-35-9619Bkcvc Plasma Reagin, QuantNon ReactiveNormal NonRea<1:1The [facility] CenterComment on above:Performed By: #### ABORH #### [facility] [address] [place] [address] Helio KarenRUBELLA AB IGGon 35-82-3525Ikiusah Antibodies, IgG1.49 indexNormal Immune >0.99The [facility] CenterCombrighton hospital on above:Result Comment: Non-immune <0.90 Equivocal 0.90 - 0.99 Immune >0.99Performed By: #### ABORH #### [facility] [address] [place] [address] Helio KarenVARICELLA IGG ABon 52-64-2071Gpfwhglix Zoster IgG<135Critically low Immune >165The [facility] CenterComment on above:Result Comment: Negative <135 Equivocal 135 - 165 Positive >165 A positive result generally indicates exposure to the pathogen or administration of specific immunoglobulins, but it is not indication of active infection or stage of disease.Performed By: #### ABORH #### [facility] [address] [place] [address] Helio KarenCBC AUTO DIFFon 77-02-1044Hjbtdunya (Bld) [#/Vol]0.0 103/ulNormal 0.0-0.1The [facility] CenterComment on above:Performed By: #### CBC #### [facility] [address] [place] [address] Helio KarenBasophils/100 WBC (Bld)0.3 %Normal0.2-2.0The [facility] Comment on above:Performed By: #### CBC #### [facility] [address] [place] [address] Helio KarenEosinophils (Bld) [#/Vol]0.1 103/ulNormal0.0-0.7The [facility] CenterComment on above:Performed By: #### CBC #### [facility] [address] [place] [address] Helio KarenEosinophils/100 WBC (Bld)0.8 %Critically low0.9-7.0The [facility] CenterComment on above:Performed By: #### CBC #### [facility] [address] [place] [address] Helio KarenErythrocyte distribution width (RBC) [Ratio]12.8 %Ylmrjj17.0-15.0The [facility] CenterComment on above:Performed By: #### CBC #### [facility] [address] [place] [address] Helio KarenHematocrit (Bld) [Volume fraction]36.9 %Dqgbvg04.0-48.0The [facility] CenterComment on above:Performed By: #### CBC #### [facility] [address] [place] [address] Helio KarenHemoglobin (Bld) [Mass/Vol]12.7 g/wNMiarqq52.0-16.0The [facility] CenterComment on above:Performed By: #### CBC #### [facility] [address] [place] [address] Helio KarenIG #0.05 10e3/ulCritically high0.00-0.03The [facility] CenterComment on above:Performed By: #### CBC #### [facility] [address] [place] [address] Helio KarenIG %0.6 %Critically high0.0-0.5The [facility] CenterComment on above:Performed By: #### CBC #### [facility] [address] [place] [address] Helio KarenLymphocytes (Bld) [#/Vol]1.2 103/ulNormal1.2-3.8The [facility] CenterComment on above:Performed By: #### CBC #### [facility] [address] [place] [address] Helio KarenLymphocytes/100 WBC (Bld)13.6 %Critically low20.5-60.0The [facility] CenterComment on above:Performed By: #### CBC #### [facility] [address] [place] [address] Helio KarenMANUAL DIFF REQNONormalThe [facility] CenterComment on above: Performed By: #### CBC #### [facility] [address] [place] [address] Helio KarenMCH (RBC) [Entitic mass]30.0 kmVfzrcw37.7-34.0The [facility] Comment on above:Performed By: #### CBC #### [facility] [address] [place] [address] Helio KarenMCHC (RBC) [Mass/Vol]34.4 g/qOWitmpt16.9-35.2The [facility] Comment on above:Performed By: #### CBC #### [facility] [address] [place] [address] Helio KarenMCV (RBC) [Entitic vol]87.2 uYViusxb46.0-99.0The [facility] Comment on above:Performed By: #### CBC #### [facility] [address] [place] [address] Helio KarenMonocytes (Bld) [#/Vol]0.6 103/ulNormal0.3-0.8The [facility] Comment on above:Performed By: #### CBC #### [facility] [address] [place] [address] Helio KarenMonocytes/100 WBC (Bld)6.7 %Normal1.7-12.0The [facility] Comment on above:Performed By: #### CBC #### [facility] [address] [place] [address] Helio KarenNeutrophils (Bld) [#/Vol]6.9 103/ulCritically high1.4-6.5The [facility] CenterComment on above:Performed By: #### CBC #### [facility] [address] [place] [address] Helio KarenNeutrophils/100 WBC (Bld)78.0 %Critically high43.0-75.0The [facility] CenterComment on above:Performed By: #### CBC #### [facility] [address] [place] [address] Helio KarenPlatelet mean volume (Bld) [Entitic vol]9.8 fLNormal9.5-13.5The [facility] CenterComment on above:Performed By: #### CBC #### [facility] [address] [place] [address] Helio KarenPlatelets (Bld) [#/Vol]200 103/uwKmdnrp291-346Wza [facility] Comment on above:Performed By: #### CBC #### [facility] [address] [place] [address] Helio KarenRBC (Bld) [#/Vol]4.23 106/ulNormal4.20-5.40[facility] Comment on above:Performed By: #### CBC #### [facility] [address] [place] [address] Helio KarenWBC (Bld) [#/Vol]8.8 103/ulNormal4.0-11.0[facility] Comment on above:Performed By: #### CBC #### [facility] [address] [place] [address] Helio KarenCULTURE URINEon 80-12-5108OTGINKG URINECulture Observations: No growthNormalThe [facility] CenterComment on above:Performed By: #### ABORH #### [facility] [address] [place] [address] Helio KarenDRUG SCREEN RAPID (URINE)on 63-28-2915EQKItbhtnrpOeovwfSYKLITVYBdv [facility] HospitalComment on above:Performed By: #### DRUGRPD, UAMIC #### [facility] [address] [place] [address] Helio KarenBARNegativeNormalNEGATIVEThe Von HospitalComment on above: Performed By: #### DRUGANNAMARIAD, UAMIC #### [facility] [address] [place] [address] Helio KarenBUPNegativeNormalNEGATIVEFlower HospitalComment on above: Performed By: #### DRUGELIZABETH, UAMIC #### [facility] [address] [place] [address] Helio KarenBZONegativeNormalNEGATIVEPremier Health HospitalComment on above: Performed By: #### DRUGELIZABETH, UAMIC #### [facility] [address] [place] [address] Helio KarenCOCNegativeNormalNEGATIVEFlower HospitalComment on above: Performed By: #### DRUGELIZABETH UAMIC #### [facility] [address] [place] [address] Helio KarenCUT-OFFSSEE BELOWUniversity Health Truman Medical CenteralThAvita Health System Galion HospitalComment on above:Result Comment: AMP (Amphetamine): 500ng/mL, BAR (Barbituates): 200 ng/mL, BZO (Benzodiazepines): 150 ng/mL, BUP (Buprenorphine): 10 ng/mL, JAYLA (Cocaine): 150 ng/mL, mAMP (Methamphetamine): 500 ng/mL, MTD (Methadone): 200 ng/mL, OPI (Opiates): 100 ng/mL or 2000 ng/mL, OXY (Oxycodone): 100 ng/mL, PCP (Phencyclidine): 25 ng/mL, PPX (Propoxyphene): 300 ng/mL, THC (Cannabinoids): 50 ng/mL, TCA (Trycyclic Antidepressants): 300 ng/mLPerformed By: #### DRUGELIZABETH, UAMIC #### [facility] [address] [place] [address] Helio KarenDRUG CUT HEADERDRUG CLASS TEST SYSTEM CUT-OFF CONCENTRATIONS ARE FOLLOWS:NormalThe [facility] CenterComment on above:Performed By: #### DRUGELIZABETH, UAMIC #### [facility] [address] [place] [address] Helio KarenmAMPNegativeNormalNEGATIVEPremier Health HospitalComment on above: Performed By: #### DRUGRPD, UAMIC #### [facility] [address] [address] Helio KarenMTDNegativeNormalNEGATIVEFlower HospitalComment on above: Performed By: #### DRUGRPD, UAMIC #### [facility] [address] [address] Helio KarenOPINegativeNormalNEGATIVEPremier Health HospitalComment on above: Performed By: #### DRUGRPD, UAMIC #### [facility] [address] [address] Helio KarenOXYNegativeNormalNEGATIVEPremier Health HospitalCombrighton hospital on above: Performed By: #### DRUGRPD, UAMIC #### [facility] [address] [place] [address] Helio KarenPCPNegativeNormalNEGATIVEFlower HospitalCombrighton hospital on above: Performed By: #### DRUGRPD, UAMIC #### [facility] [address] [place] [address] Helio KarenPPXNegativeNormalNEGATIVEFlower HospitalCombrighton hospital on above: Performed By: #### DRUGRPD, UAMIC #### [facility] [address] [place] [address] Helio KarenTCANegativeNormalNEGATIVEFlower HospitalCombrighton hospital on above: Performed By: #### DRUGANNAMARIAD, UAMIC #### [facility] [address] [place] [address] Helio KarenTHCNegativeNormalNEGGrant HospitalCombrighton hospital on above: Performed By: #### DRUGRPD, UAMIC #### [facility] [address] [address] Helio KarenGLYCOHEMOGLOBIN A1Con 52-25-1575Evppnnz [Mass/Vol]94 mg/dLNoWright-Patterson Medical CenterComment on above:Performed By: #### A1C #### [facility] [address] [address] Helio TzyrtYjH6q (Bld) [Mass fraction]4.9 %Normal<=6.0[facility] Comment on above:Performed By: #### A1C #### [facility] [address] [place] [address] Helio KarenPREG QUANT HCGon 92-43-9156AJK JGESL76611.00 mIU/mLNormalFlower HospitalComment on above:Performed By: #### PREGQNT #### [facility] [address] [place] [address] Helio KarenHCG RANGESEE BELOWNoWright-Patterson Medical CenterComment on above:Result Comment: 5-50 0-1 WEEK 40-300 1-2 WEEKS 100-1,000 2-3 WEEKS 500-6,000 3-4 WEEKS 5,000-200,000 1-2 MONTHS 10,000-100,000 2-3 MONTHS 3,000-50,000 2ND TRIMESTER 1,000-50,000 3RD TRIMESTERPerformed By: #### PREGQNT #### [facility] [address] [place] [address] Helio KarenTYPE AND SCREENon 27-24-0933XYLL AND SCREENNegativeMagruder HospitalComment on above:Performed By: #### TNS #### [facility] [address] [place] [address] Helio KarenUA RANDOM W/MICROSCOPICon 47-19-5352Gyathxhm LM.HPF (Urine sed) [#/Area]TRACENormalNONE SEENFlower HospitalComment on above:Performed By: #### DRUGRPD, UAMIC #### [facility] [address] [place] [address] Helio KarenBilirubin [Mass/Vol]NegativeNormalNEGATIVEFlower Hospital Comment on above:Performed By: #### DRUGRPD, UAMIC #### [facility] [address] [place] [address] Helio KarenBLOODNegativeNormalNEGATIVEFlower HospitalComment on above: Performed By: #### DRUGRPD, UAMIC #### [facility] [address] [place], [place] [address] Helio KarenCASTNONE SEENNormalNONE SEENFlower HospitalComment on above: Performed By: #### DRUGRPD, UAMIC #### [facility] [address] [place] [address] Helio KarenClarity (U)CLEARNoWright-Patterson Medical CenterComment on above: Performed By: #### DRUGRPD, UAMIC #### [facility] [address] [place] [address] Helio KarenColor (U)LT. YELLOWNormalYELLOWFlower HospitalComment on above:Performed By: #### DRUGRPD, UAMIC #### [facility] [address] [place] [address] Helio KarenCrystals LM Nom (Urine sed)NONE SEENNormalNONE SEENFlower HospitalCombrighton hospital on above:Performed By: #### DRUGRPD, UAMIC #### [facility] [address] [place] [address] Helio KarenEpithelial cells LM.HPF (Urine sed) [#/Area]RAREMagruder HospitalComment on above:Performed By: #### DRUGRPD, UAMIC #### [facility] [address] [place] [address] Helio KarenGlucose [Mass/Vol]NegativeNormalNEGATIVEFlower HospitalCombrighton hospital on above:Performed By: #### DRUGRPD, UAMIC #### [facility] [address] [place] [address] Helio KarenKetones Ql (U)NegativeNormalNEGATIVEFlower HospitalComment on above:Performed By: #### DRUGRPD, UAMIC #### [facility] [address] [place] [address] Helio KarenMUCOUSNONE SEENNormalNONE [facility] HospitalCombrighton hospital on above: Performed By: #### DRUGRPD, UAMIC #### [facility] [address] [place] [address] Helio KarenNitrite Ql (U)NegativeNormalNEGATIVEFlower HospitalComment on above:Performed By: #### DRUGRPD, UAMIC #### [facility] [address] [address] Helio KarenpH (Bld)7.8Vonwcd3-8Lyu [facility] CenterComment on above:Performed By: #### DRUGRPD, UAMIC #### [facility] [address] [place] [address] Helio KarenProtein [Mass/Vol]NegativeNormKettering Health PrebleComment on above:Performed By: #### DRUGRPD, UAMIC #### [facility] [address] [place] [address] Helio KarenRBC (Bld) [#/Vol]NONE SEENNormal0-2The [facility] CenterComment on above:Performed By: #### DRUGANNAMARIAD, UAMIC #### [facility] [address] [place] [address] Helio KarenSPEC GRAVITY1.163Fspwga7.005-<=1.025The [facility] CenterComment on above:Performed By: #### DRUGRPD, UAMIC #### [facility] [address] [place] [address] Helio KarenUrobilinogen Qn (U)0.2 EU/dlNoWright-Patterson Medical CenterCombrighton hospital on above:Performed By: #### DRUGRPD, UAMIC #### [facility] [address] [place] [address] Helio KarenWBC (Bld) [#/Vol]SMALLNormalNEGATIVEThe [facility] CenterComment on above:Performed By: #### DRUGRPD, UAMIC #### [facility] [address] [place] [address] Helio KarenWBC (Bld) [#/Vol]2-5NormalNONE SEENFlower HospitalComment on above:Performed By: #### DRUGRPD, UAMIC #### [facility] [address] [place] [address] Helio KarenUS PREG <14 WKSon 03-01-4368KY PREG <14 WKSPatient: SANGEETHA MELGOZARina Exam Date: 11/05/2019 : 1995 Gender:F Ordering : DR. RAMONA JIMÉNEZ . Admission #: [id number] Family : Order #: [id number] CLICK HERE TO VIEW EXAM RADIOLOGY REPORT [...] by: Frankie Hendrickson M.D. on 11/06/2019 at 14:27[facility] ABO AND RH TYPEon 55-13-5587VKK and Rh group Nom (Bld)ABO Rh Typing A Rh PositiveMagruder HospitalComment on above:Performed By: #### ABORH #### [facility] [address] [place] [address] Helio KrishnaPREZeinab QUANT HCGon 39-69-3282CVV JUJIV63855.00 mIU/mLNormalFlower HospitalComment on above:Result Comment: Verified by dilutionPerformed By: #### PREGQNT #### [facility] [address] [place] [address] Helio RodriguezCG RANGESEE [facility]ula General HospitalComment on above:Result Comment: 5-50 0-1 WEEK 40-300 1-2 WEEKS 100-1,000 2-3 WEEKS 500-6,000 3-4 WEEKS 5,000-200,000 1-2 MONTHS 10,000-100,000 2-3 MONTHS 3,000-50,000 2ND TRIMESTER 1,000-50,000 3RD TRIMESTERPerformed By: #### PREGQNT #### [facility] [address] [place] [address] Helio Krishna Vital Signs Date TimeVital SignValuePerforming RecrsuansQgbwkodu93-48-5008 09:24-0400Body mass index (BMI) [Ratio]35.48 kg/e8Ctclk Bethany DO Work Phone: [phone])[facility] [place], [place] [address]Frchgyjkxp34-91-1913 09:24-0400Body wjaesd18 kg Bridger Bethany DO Work Phone: [phone])[facility] [place], [place] [address]Pvzzbxvmab49-37-1587 09:24-0400Diastolic blood mm[Hg]Bridger Bethany DO Work Phone: [phone])[facility] [place], [place] [address]Akwaywqstp98-17-7284 09:24-0400Systolic blood alzcgunp543 mm[Hg]Bridger Bethany DO Work Phone: [phone])[facility] [place], [place] [address]Isckypqusa37-45-5690 09:46-0400Body mass index (BMI) [Ratio]35.57 kg/m2Amy Xu PA Work Phone: [phone] [place], [place] [address]Czwopihsrj65-89-4007 09:46-0400Body uiyqua63.22 kgSarita ROBERTO Work Phone: [phone])[facility] [place], [place] [address]Lxqgohnsrs48-98-5514 09:46-0400Diastolic blood drfpezoh93 mm[Hg]Sarita ROBERTO Work Phone: [phone])[facility] [place], [place] [address]Avffdbwcrn88-36-8192 09:46-0400Systolic blood kobglpvu519 mm[Hg]Sarita ROBERTO Work Phone: 1(688)[facility] [place], [place] [address]Eawlpervtv07-19-1725 08:44-0400Body mass index (BMI) [Ratio]34.9 kg/t5QyqxqvtcCarmela Little NP Work Phone: [phone])[facility] [place], [place] [address]Qqprprocrj52-44-6648 08:44-0400Body .55 kgCarmela Little NP Work Phone: [phone])[facility] [place], [place] [address]Rhqehfszeb28-50-6378 08:44-0400Diastolic blood wqbvyqan74 mm[Hg]Carmela Little NP Work Phone: [facility] HospitalBaipkizbiv13-11-0975 08:44-0400Systolic blood nlgctwim787 mm[Hg]Carmela Johnerly CABLE INSTALLATION MANAGER Work Phone: [facility] HospitalBzieoixfxi81-32-2651 10:23-0400Body mass index (BMI) [Ratio]34.82 kg/i7Fjouk Bethany DO Work Phone: [phone])435-[address] [place], [place] [address]Rxtoeekevu85-04-1781 10:23-0400Body .36 kgCorey Bethany DO Work Phone: 1([phone])623-[facility]St[facility] HospitalWbwcjtcooc98-79-6449 10:23-0400Diastolic blood tzuehgrn58 mm[Hg]Bridger Bethany DO Work Phone: 1([phone])264-[address] [place], [place] [address]Oxhoplpcwe85-01-3373 10:23-0400Systolic blood jbkupllf435 mm[Hg]Bridger Bethany DO Work Phone: 1(187)567-[address] [place], [place] [address]Xzuppgofug60-55-4841 08:57-0400Body mass index (BMI) [Ratio]34.17 kg/m2Amy Xu PA Work Phone: [phone] [place], [place] [address]Telengwujp52-13-3199 08:57-0400Body dyftyu11.73 kgAmy Xu PA Work Phone: [phone])751-[address] [place], [place] [address]Zuhaavjrnx30-66-0356 08:57-0400Diastolic blood jqxdcixe40 mm[Hg]Sarita Ballard PA Work Phone: [phone] [place], [place] [address]Jmimeiwfng22-58-2588 08:57-0400Systolic blood ibnicdwk113 mm[Hg]Sarita Ballard PA Work Phone: [phone]-[facility] HospitalVwgqczyggx26-46-2905 10:46-0400Body mass index (BMI) [Ratio]32.7 kg/m2Amy Xu PA Work Phone: [phone])108-[address] [place], [place] [address]Ejfbnsrndi53-30-5279 10:46-0400Body ykssmx99.1 kg Sarita Ballard PA Work Phone: [phone])179-[address] [place], [place] [address]Eabqwpmvvu16-80-3206 10:46-0400Diastolic blood mifpgtwf30 mm[Hg]Sarita Xu PA Work Phone: [facility] HospitalAvhfjqeflz23-13-0882 10:46-0400Systolic blood mm[Hg]Sarita ROBERTO Work Phone: [facility] HospitalZnpjehyerw27-25-3100 10:24-0400Body mass index (BMI) [Ratio]32.58 kg/z6Tkcjs Bethany DO Work Phone: [facility] HospitalXohgvzuscy65-79-8054 10:24-0400Body qowmaa22.8 kg Bridgerfarida Sims DO Work Phone: [facility] HospitalPhkawzmynu95-35-8764 10:24-0400Diastolic blood adhqdpiz85 mm[Hg]Bridgerfarida Sims DO Work Phone: [facility] HospitalPlhvbhejso20-12-0536 10:24-0400Systolic blood fbwyeggi265 mm[Hg]Bridgerfarida Sims Work Phone: [facility] HospitalNtwvjrkdkp70-21-4360 10:16-0400Body akosxs295.5 cmCoxHealth05-30-2025 09:52-0400Body mass index (BMI) [Ratio] 31.64 kg/m2[facility]05-30-2025 09:52-0400Body qxoukn57.47 kgCoxHealth05-30-2025 09:52-0400Diastolic blood mm[Hg][facility]05-30-2025 09:52-0400Systolic blood fsplxeyt460 mm[Hg][facility]12-28-2024 18:18-0500Body rspmeymxvej68.9 [degF]Evangelist Jenkins MD Work Phone: [facility] HospitalCmqzgl49-11-6773 18:18-0500Diastolic blood qitjovta10 mm[Hg]Evangelist Jenkins MD Work Phone: [facility] HospitalGkqkva74-75-2857 18:18-0500Systolic blood zlzqobmr438 mm[Hg]Evangelist Jenkins MD Work Phone: [facility] HospitalLtrdoa31-24-9390 18:17-0500Body mass index (BMI) [Ratio]32.92 kg/g6QjdkjEvangelist Jenkins MD Work Phone: [facility] [employer]12-28-2024 18:17-0500Body scanqk80.65 kgThestrellita Jenkins MD Work Phone: [employer]12-28-2024 18:17-0500Heart rate78 /minEvangelist Jenkins MD Work Phone: [facility] [employer]12-28-2024 18:17-0500 Respiratory rate16 /minEvangelist Jenkins MD Work Phone: [facility] [employer]12-28-2024 18:17-6257VeG2% (BldA) [Mass fraction]98 %Evangelist Gregory MILLER Work Phone: [facility] [employer]09-24-2024 09:10-0400Body .73 kgCorey Bethany DO Work Phone: [facility] HospitalKvnrzemfsp62-13-6533 09:10-0400Diastolic blood ryhkqxed21 mm[Hg]Bridger Bethany DO Work Phone: [address] [address]Ioodteotbg69-28-7077 09:10-0400Systolic blood pofsdzmu810 mm[Hg]Bridger Bethany DO Work Phone: [address] [address]Cqfkxlaklz93-44-8885 10:10-0400Body kkoqvs79.73 kgSarita ROBERTO Work Phone: [address] [address]Iskewyoixe35-01-8274 10:10-0400Diastolic blood gozvgouw43 mm[Hg]Sarita ROBERTO Work Phone: [address] [address]Cesajeygqb93-62-7961 10:10-0400Systolic blood kduyyjpu689 mm[Hg]Sarita ROBERTO Work Phone: [address] [address]Qcsxbyjuqz48-83-7501 10:47-0400Body nggegh58 kg Bridger Bethany DO Work Phone: [facility] HospitalIvbicfqpkl24-83-3302 10:47-0400Diastolic blood opgaiqca33 mm[Hg]Bridger Bethany DO Work Phone: [facility] HospitalQbjqohxtlm03-71-5728 10:47-0400Systolic blood muirrcub295 mm[Hg]Bridger Bethany DO Work Phone: [facility] HospitalYnketlmfvv63-39-2451 08:40-0400Body afskvc13.46 kgSarita ROBERTO Work Phone: [facility] HospitalHfbcedpbtf83-56-2578 08:40-0400Diastolic blood hfqohjpe52 mm[Hg]Sarita ROBERTO Work Phone: [facility] HospitalWcjecmncib05-53-0448 08:40-0400Systolic blood apsueypl013 mm[Hg]Sarita ROBERTO Work Phone: [facility] HospitalTgzrmbdkhb93-35-1548 13:12-0500Body .5 [facility]01-09-2024 13:12-0500Body mass index (BMI) [Ratio]28.72 kg/m2[facility]01-09-2024 13:12-0500Body wvsldy33.22 [facility]01-[facility]2024 13:12-0500Diastolic blood vxohepbx90 mm[Hg][facility]01-09-2024 13:12-0500 Systolic blood gqeipvls928 mm[Hg][facility] Encounters Encounter DateEncounter TypeCare ProviderFacilityStart: 07-13-2025 End: 77-88-0716Utcclm flowsheetCorey Bethany DO Work Phone: [facility] [place] [facility]BGYNStart: 07-13-2025 End: 35-69-3900Itdslz flowsheetCorey Bethany DO Work Phone: [facility] [place] OBGYNStart: 07-13-2025 End: 65-98-9221Cyhsol outpatient visit 15 minutesCorey Bethany DO Work Phone: [facility] [place] OBGYNComment on above:Third trimester ([facility]); 34 weeks gestation of ([facility])Start: 07-13-2025 End: 93-03-2809qcqiqoactcAWDEX FAZIONot AvailableStart: 06-30-2025 End: 03-32-7430Bsflnh outpatient visit 15 minutesSarita ROBERTO Work Phone: [facility] Von OBGYNComment on above:Third trimester ([facility]); 32 weeks gestation of ([facility])Start: 06-30-2025 End: 84-86-6468wyejpysbisOMO RAMEYNot AvailableStart: 06-15-2025 End: 84-13-5353Nhkrflzander Little NP Work Phone: [facility] Von OBGYNStart: 06-15-2025 End: 78-29-5693Iufikzzander Little NP Work Phone: [facility] OBGYNStart: 06-15-2025 End: 89-47-1564Scpser outpatient visit 15 minutesCarmela Little NP Work Phone: NOM[facility] Von OBGYNComment on above:30 weeks gestation of ([facility]); Third trimester ([facility]); Uterine synechiae; Low ironStart: 06-15-2025 End: 35-69-3941qfjiiklhzdDKLZECUL EBSUSANLYNot AvailableStart: 06-05-2025 End: 12-50-8024Mwjibtsud Result EncounterCorey Bethany DO Work Phone: [facility] External Department UnsolicitedStart: 06-05-2025 End: 43-60-7454Rinvvkxsf Result EncounterCorey Bethany DO Work Phone: [facility] External Department UnsolicitedStart: 06-01-2025 End: 45-91-5746Gxlgltjfo Result EncounterCorey Behtany DO Work Phone: [facility] External Department UnsolicitedStart: 06-01-2025 End: 49-49-5125Peizcymhe Result EncounterCorey Bethany DO Work Phone: noms External Department UnsolicitedStart: 06-01-2025 End: 51-11-8984Bixaoh outpatient visit 15 minutesCorey Bethany DO Work Phone: NOKR Von OBGYNComment on above:28 weeks gestation of ([facility]); Third trimester ([facility])Start: 06-01-2025 End: 08-94-3915sjhrvjsseuLMOYE FAZIONot AvailableStart: 05-07-2025 End: 32-50-4168Jzzrpltym Result EncounterAmy Xu ROBERTO Work Phone: noms External Department UnsolicitedStart: 05-07-2025 End: 31-25-1815Eynzaiayi Result EncounterAmy Xu ROBERTO Work Phone: noms External Department UnsolicitedStart: 05-04-2025 End: 16-92-7141Rqbzni outpatient visit 15 minutesAmy Xu ROBERTO Work Phone: noms [place] OBGYNComment on above:24 weeks gestation of ([facility]); Second trimester ([facility]); Diabetes mellitus screeningStart: 05-04-2025 End: 56-45-8056cknwrobjutPLG RAMEYNot AvailableStart: 04-06-2025 End: 29-93-6211Geymua outpatient visit 15 minutesAmy Xu ROBERTO Work Phone: NOLU BCP OBComment on above:Second trimester ([facility]); 20 weeks gestation of ([facility])Start: 04-06-2025 End: 00-77-7538qonhovaetdILT RAMEYNot AvailableStart: 04-06-2025 End: 05-35-1286qgmssudnxdKBPZB FAZIONot AvailableStart: 03-03-2025 End: 05-69-7441Wyatxz flowsheetCorey Bethany DO Work Phone: noms BCP OBStart: 03-03-2025 End: 25-47-5280Anihfa flowsheetCorey Bethany DO Work Phone: noms BCP OBStart: 03-03-2025 End: 97-80-8629Bdbtaxtcu Result EncounterCorey Bethany DO Work Phone: noms External Department UnsolicitedStart: 03-03-2025 End: 30-87-1287Xxpxqdjv flow sheetCorey Bethany DO Work Phone: noms BCP OBComment on above:15 weeks gestation of ([facility]); Second trimester fetus ([facility]); Screening, , for anatomic survey ([facility])Start: 03-03-2025 End: 85-49-5241pssgycaqavNXSLI FAZIONot AvailableStart: 03-02-2025 End: 58-11-1174Qrszowztu Result EncounterCorey Bethany DO Work Phone: noms External Department UnsolicitedStart: 03-02-2025 End: 83-35-9676Tarbxjkim Result EncounterCorey Bethany DO Work Phone: noms External Department UnsolicitedStart: 02-13-2025 End: 01-52-6385Nzpmkr outpatient visit 5 minutesNoms Bcp Ob Bethany NurseNOMS BCP OBComment on above:GA: 86h0lJhugj: 02-13-2025 End: 02-08-1426mppwuwtfxjQDIYO FAZIONot AvailableStart: 01-14-2025 End: 71-21-9756Mgwhawtcu Result EncounterCorey Bethany DO Work Phone: noms External Department UnsolicitedStart: 01-14-2025 End: 65-51-5036Sfvpytipz Result EncounterCorey Bethany DO Work Phone: noms External Department UnsolicitedStart: 01-14-2025 End: 42-44-1440tfcogpsmksYEPYogesh LovelaceCleveland Clinic [facility] HospitalStart: 01-14-2025 End: 52-51-3691Ccnbexqmjf hospital visit by Angely Bedoya APRN - MANAGER INFUSION Work Phone: [facility] LABStart: 09-13-2024 End: 03-35-5922Junrsctqs department patient visitEvangelist Jenkins MD Work Phone: [facility]álvaro Jerome Emergency DepartmentComment on above: Laceration of left middle finger without foreign body without damage to nail, initial encounter (Primary Dx)Start: 06-18-2024 End: 75-43-0535Ndoawsolk Result EncounterCorey Bethany DO Work Phone: NOCX External Department UnsolicitedStart: 06-18-2024 End: 57-04-6347Ukxmgwbya Result EncounterCorey Bethany DO Work Phone: noms External Department UnsolicitedStart: 06-17-2024 End: 93-64-4917Tbasdkwgu Result EncounterCorey Bethany DO Work Phone: noms External Department UnsolicitedStart: 06-17-2024 End: 73-68-5997Ecsigzryb Result EncounterCorey Bethany DO Work Phone: noms External Department UnsolicitedStart: 06-10-2024 End: 60-24-0080Kflrdp flowsheetCorey Bethany DO Work Phone: NOMS BCP OBStart: 06-10-2024 End: 88-58-9594Wynbgl flowsheetCorey Bethany DO Work Phone: NOZQ BCP OBStart: 06-10-2024 End: 83-66-8557Qmqmvc outpatient visit 15 minutesCorey Bethany DO Work Phone: NOMS BCP OBComment on above:Third trimester Start: 06-03-2024 End: 03-98-9114Dpiwqp flowsIva ROBERTO Work Phone: NOM[facility] BCP OBStart: 06-03-2024 End: 89-42-0944Tkqtlp Devan ROBERTO Work Phone: NOMS BCP OBStart: 06-03-2024 End: 29-10-1763Ihyeow outpatient visit 15 minutesSarita ROBERTO Work Phone: NOMS BCP OBComment on above:Third trimester Start: 05-29-2024 End: 04-78-5401Rvhqstzvp Result EncounterAmy Xu ROBERTO Work Phone: NOMS External Department UnsolicitedStart: 05-29-2024 End: 87-93-1807Ndrqtrxhd Result EncounterAmy Xu ROBERTO Work Phone: noMS External Department UnsolicitedStart: 05-27-2024 End: 33-25-2540Smzoah flowsheetCorey Bethany DO Work Phone: NOM[facility] BCP OBStart: 05-27-2024 End: 28-89-7348Djnrtl flowsheetCorey Bethany DO Work Phone: NOM[facility] BCP OBStart: 05-27-2024 End: 00-43-6422Okfqry outpatient visit 15 minutesCorey Bethany DO Work Phone: NOMS BCP OBComment on above:36 weeks gestation of ; Third trimester pregnancyStart: 05-13-2024 End: 26-48-8956Adnugd flowsheetAmy Xu ROBERTO Work Phone: NOMS BCP OBStart: 05-13-2024 End: 32-68-8127Adebcl flowsheetAmy Xu PA Work Phone: NOPN BCP OBStart: 05-13-2024 End: 19-80-3789Iyhqyv outpatient visit 15 minutesAmy Xu ROBERTO Work Phone: NOMS BCP OBComment on above:Third trimester ; size inconsistent with datesStart: 04-29-2024 End: 01-36-0294Uoeszzbbj Result EncounterAmy Xu ROBERTO Work Phone: NOMS External Department UnsolicitedStart: 04-29-2024 End: 69-30-9963Qyvfuyxsk Result EncounterAmy Xu ROBERTO Work Phone: NOMS External Department UnsolicitedStart: 01-28-2024 End: 29-88-1486Nhmrozxrv encounterAmy Aime RDOK, RVTPSamaritan [facility] Center US ImagingStart: 01-22-2024 End: 38-92-4776Asydbulug Result EncounterCorey Bethany DO Work Phone: noms External Department UnsolicitedStart: 01-22-2024 End: 21-61-5426Jrinarjir Result EncounterCorey Bethany DO Work Phone: noms External Department UnsolicitedStart: 12-13-2023 End: 09-58-5216Ydfbhlxto Result EncounterCorey Bethany DO Work Phone: noms External Department UnsolicitedStart: 12-13-2023 End: 15-11-3548Ejfhhkuph Result EncounterCorey Bethany DO Work Phone: noms External Department UnsolicitedStart: 09-25-2023 End: 00-63-2845ggvtbohpztKBP J [facility]ulatory PPGStart: 09-25-2023 End: 46-70-4729Fwwshj outpatient new 30 minutesPwsc Ob MidwifeProMedica Women's Services - CyldeComment on above:Encounter for IUD removal (Primary Dx)Start: 05-21-2023 End: 41-88-2697Shavplfvap hospital visit by physicianSarita Bedoya APRN - ESTHER Work Phone: mthz LaboratoryStart: 18-13-0608bpsnfvqasmFmu Jo Cleemput HIDES INSPECTOR-CNPFacility:[facility] Centertart: 04-16-2023 End: 50-83-8520oygnbzgioyGmrYogesh Bedoya HIDES INSPECTOR-CNPFacility:[facility] Start: 03-08-2023 End: 43-96-3989uubeqmppsuJjr Jo Cleemput HIDES INSPECTOR-CNPFacility:[facility] Start: 05-25-2020 End: 54-87-9080Tdcqtobueu and management of inpatientANDREA OUMARFacility:H1 Start: 05-18-2020 End: 08-98-4296Eiqnqdb encounter procedureANDREA OUMARFacility:U4Tlpwk: 05-03-2020 End: 73-81-4864Vsfsfwc encounter procedureANDREA OUMARFacility:M6Kvfsw: 03-04-2020 End: 08-77-5268Gkxijhd encounter procedureANDRESkip JIMÉNEZFacility:U3Lqcwy: 01-27-2020 End: 27-48-7599Caiptxa encounter procedureANDRESkip Arturocility:B6Aldvi: 01-09-2020 End: 91-94-9810Rzkzute encounter procedureANDRESkip OUMARFacility:X8Tztvs: 12-26-2019 End: 18-69-2139Yzukcis encounter procedureANDRESkip Arturocility:V8Nudbu: 11-21-2019 End: 36-45-2834Owuwntp encounter procedureANDRESkip JIMÉNEZElocility:I4Lther: 11-21-2019 End: 64-70-5900Dvaobna encounter procedureANDRESkip Arturocility:S7Ijerx: 11-05-2019 End: 71-88-3502Yvsikmr encounter procedureANDTISkip Arturocility:P1Nkkod: 10-28-2019 End: 89-42-3447Assqgoz encounter procedureANDTISkip Arturocility:I2Hpami: 05-16-2016 End: 45-77-4864SvojoczetmPmapwegian Erickson NnoliFacility:ARM Procedures DateProcedureProcedure DetailPerforming ClinicianStart: 74-53-6206Zwmfm dip stick/tablet rgnt non-auto w/o micrscpCorey Bethany DO Work Phone: Start: 08-90-0317Qvbhz dip stick/tablet rgnt non-auto w/o micrscpAmy Xu PA Work Phone: Start: 74-81-1890Lbndg dip stick/tablet rgnt non-auto w/o micrscpKristinskip Little NP Work Phone: Start: 30-27-2927MKC FERRITINCorey Bethany DO Work Phone: Start: 11-52-7822Fyqob dip stick/tablet rgnt non-auto w/o micrscpCorey Bethany DO Work Phone: Start: 11-68-1770IEA CBC WITH AUTO DIFFCorey Bethany DO Work Phone: Start: 61-67-1116POZ CBC WITH AUTO DIFFAmy Xu ROBERTO Work Phone: Start: 85-58-0483Mlelb dip stick/tablet rgnt non-auto w/o micrscpAwellington ROBERTO Work Phone: Start: 59-24-3561IEW, SERUM, OPEN SPINA BIFIDACorey Bethany DO Work Phone: Start: 79-08-7805Ubmyd dip stick/tablet rgnt non-auto w/o micrscpCorey Bethany DO Work Phone: Start: 85-71-6023PVR TESTCorey Bethany DO Work Phone: Start: 74-56-9780Wfxdi dip stick/tablet rgnt non-auto w/o micrscpCorey Bethany DO Work Phone: Start: 56-88-1301SYY HCG, QUANTITATIVECorey Bethany DO Work Phone: Start: 27-42-7538Vtlzbpyuspls chorionic quantitative Bridger Cholo Sims MD Work Phone: Start: 60-42-5820Gmzks fingr minimum 2 Marquis Jenkins MD Work Phone: Start: 26-99-3279CVR CBC WITH AUTO DIFFCorey Bethany DO Work Phone: Start: 54-60-3139ZARK CBC WITH PLATELET NO DIFFERENTIALCorey Bethany DO Work Phone: Start: 49-39-7575Umvrc dip stick/tablet rgnt non-auto w/o micrscpCorey Bethany DO Work Phone: Start: 72-71-3169Uftjr dip stick/tablet rgnt non-auto w/o micrscJuany ROBERTO Work Phone: Start: 99-03-5245HN OB GROWTHSarita ROBERTO Work Phone: Start: 15-45-3668Mhckp dip stick/tablet rgnt non-auto w/o micrscpCorey Bethany DO Work Phone: Start: 43-35-4169Ladon dip stick/tablet rgnt non-auto w/o micrscpAmy Xu ROBERTO Work Phone: Start: 74-26-5552JF OB GROWTHAmy Xu ROBERTO Work Phone: Start: 22-46-3916WN OB ANATOMYCorey Bethany DO Work Phone: Start: 13-69-5690TH OB CERVICAL LENGTHCorey Bethany DO Work Phone: Start: 47-40-0677BK OB TRANSVAGINALCorey Bethany DO Work Phone: Start: 83-72-6267Lbfrt/antitoxin assay tissue culture Sarita Bedoya HIDES INSPECTOR - MANAGER INFUSION Work Phone: Start: 19-46-8807Cnfxpqmj of Products of Conception, External ApproachANDREA OUMARStart: 17-32-1588Ycvoijeq of Amniotic Fluid, Therapeutic from Products of Conception, Via Natural or Artificial OpeningANDRESkip JIMÉNEZStart: 90-69-0609Dzqfrlyxvyzb of Hormone into Female Reproductive, Via Natural or Artificial OpeningANDAMBER JIMÉNEZ Plan of Treatment DateCare ActivityDetailAuthorStart: 79-40-9266YPhS,Tdap and Td Vaccines (3 - Td or Tdap)DTaP,Tdap and Td Vaccines (3 - Td or Tdap)[facility] SystemStart: 03-11-7762HWzZ/Tdap/Td vaccine (3 - Td or Tdap)DTaP/Tdap/Td vaccine (3 - Td or Tdap)[facility]ENTERStart: 07-20-2025 End: 00-17-0390Bzuhujw encounter jfxhflvyj45/03/2025 9:50 AM EST Routine [facility] [address] [place], [id number] Sarita Ballard PA [address] [place] [address] [facility] Von OBGYNStart: 07-13-2025 End: 36-49-7023Ebxpxjq encounter procedureNOMS Von OBGYNComment on above: ArrivedStart: 06-30-2025 End: 67-15-8177Cvrycsjqrqdg / ancillary services jkjyvvgtam31/14/2025 9:00 AM EDT Ancillary Procedure [facility] [address] [place] [address] [facility] Von OBGYNStart: 06-15-2025 End: 80-88-0507Jgfamrv encounter procedureNOMS Von OBGYNComment on above: ArrivedStart: 06-01-2025 End: 10-07-7777Tzkeguo encounter ogwcimjdo71/15/2025 10:20 AM EDT Routine [facility] [address] [place] [address] Bridger Sims DO [address] [place] [address] [facility] Von OBGYNStart: 06-01-2025 End: 60-56-5341Aszzppkncoxk / ancillary services hpaazzgthr81/15/2025 9:30 AM EDT Ancillary Procedure [facility] [address] [place] [address] [facility] Von OBGYNStart: 05-04-2025 End: 05-65-1978PLE panel - Blood by Automated countCBC Lab Routine Diabetes mellitus screening Expected: 05/04/2025 (Approximate), Expires: 05/04/2026[facility] Work Phone: comment on above:Expected: 05/04/2025 (Approximate), Expires: 05/04/2026Start: 05-04-2025 End: 26-17-4359Fqjfjcfpgdq of glucose 1 hour after glucose challenge for glucose tolerance testGlucose tolerance, 1 hour Lab Routine Diabetes mellitus screening Expected: 05/04/2025 (Approximate), Expires: 05/04/2026[facility] HealthcareComment on above:Expected: 05/04/2025 (Approximate), Expires: 05/04/2026Start: 05-04-2025 End: 89-76-9077Unoowhg encounter vustqyfzf21/18/2025 10:40 AM EDT Routine [facility] [address] [place] [phone] Sarita Ballard PA [address] [place] [address] [facility] BCP OBStart: 42-07-0782Vcpinbbvb vaccinationFlu vaccine (Season Ended)[facility] HospitalStart: 04-06-2025 End: 99-85-5769Wfgxykw encounter mvzhejchp86/21/2025 10:30 AM EDT Routine [facility] [address] [place] [phone] Sarita Ballard PA [address] [place] [address] [facility] BCP OBStart: 04-06-2025 End: 94-90-5726Odbpzjdiswnl / ancillary services ydyaivxwer35/21/2025 9:30 AM EDT Ancillary Procedure [facility] [address] [place] [id number] [facility] BCP OBStart: 03-03-2025 End: 34-99-4223Ywxid fetoprotein, maternalAlpha fetoprotein, maternal Lab Routine 15 weeks gestation of ([facility]) Second trimester fetus ([facility]) Expected: 03/03/2025 (Approximate), Expires: 06/03/2025[facility] Work Phone: comment on above:Expected: 03/03/2025 (Approximate), Expires: 06/03/2025Start: 03-03-2025 End: 00-11-4185WN for pregnancyUS OB 14+ weeks anatomy scan Imaging Routine Screening, , for anatomic survey ([facility]) Expected: 03/03/2025, Expires: 06/03/2025[facility] HealthcareComment on above:Expected: 03/03/2025, Expires: 06/03/2025Start: 03-03-2025 End: 30-65-9155Edusumm encounter procedureNOMS [facility] OBComment on above:Arrived Start: 02-13-2025 End: 31-74-3256PLT/RhABO/Rh Lab Routine Missed menses , unspecified gestational age Expected: 02/13/2025 (Approximate), Expires: 02/13/2026[facility] HealthcareComment on above:Expected: 02/13/2025 (Approximate), Expires: 02/13/2026Start: 02-13-2025 End: 60-74-3353Lbzxl type and Indirect antibody screen panel - BloodType and screen Lab Routine Missed menses , unspecified gestational age Expected: 02/13/2025 (Approximate), Expires: 02/13/2026[facility] HealthcareComment on above:Expected: 02/13/2025 (Approximate), Expires: 02/13/2026Start: 02-13-2025 End: 30-45-6494Kxwox of abuse panel - Urine by Screen methodRapid drug screen, urine Lab Routine , unspecified gestational age Encounter for supervision of normal first in first trimester Expected: 02/13/2025 (Approximate), Expires: 02/13/2026[facility] HealthcareComment on above:Expected: 02/13/2025 (Approximate), Expires: 02/13/2026Start: 02-05-2025 End: 28-27-0143VE Pelvis transvaginalUS OB transvaginal Imaging Routine Missed menses Expected: 02/05/2025, Expires: 05/08/2025[facility] Work Phone: comment on above:Expected: 02/05/2025, Expires: 05/08/2025Start: 93-16-2094Mphla BMI ScreeningAdult BMI ScreeningProKettering Health Springfieldca Health SystemStart: 98-17-9392Lqwnzpz ScreeningTobacco ScreeningProKettering Health Springfieldca [facility] SystemStart: 06-10-2024 End: 92-39-8652Wmbjquh encounter procedureNOMS BCP OBComment on above:Arrived Start: 06-03-2024 End: 20-94-3413Rtdcojz encounter procedureNOMS BCP OBComment on above:Arrived Start: 05-27-2024 End: 94-58-6213Qnnky B DNA probe, amplificationStrep B DNA probe, amplification Lab Routine Third trimester Expected: 05/27/2024 (Approximate), Expires: 05/27/2025[facility] Work Phone: comment on above:Expected: 05/27/2024 (Approximate), Expires: 05/27/2025Start: 05-27-2024 End: 12-35-1869Rcqhbiy encounter procedureNOMS BCP OBComment on above:Arrived Start: 25-35-7825ZJXLD-19 Vaccine ( season)COVID-19 Vaccine ( season)[facility] HospitalStart: 88-48-0630RZDRB-19 Vaccine ( season)COVID-19 Vaccine ()[facility] Start: 46-29-2573Sdyciojgm vaccinationInfluenza VaccineUniversity [facility]als [facility] System Start: 05-13-2024 End: 49-11-5315JZ for pregnancyUS OB SCAN FOR GROWTH Imaging Routine size inconsistent with dates Expected: 05/13/2024(Approximate), Expires: 05/13/2025[facility] Work Phone: comment on above:Expected: 05/13/2024 (Approximate), Expires: 05/13/2025Start: 05-13-2024 End: 56-62-8652Sjwntfn encounter hizgjyvge89/27/2024 8:50 AM EDT Routine [facility] [address] [place] [address] Sarita Ballard PA [address] [place] [address] ArrivedNOMS BCP OBComment on above: ArrivedStart: 33-14-7091Nrorvehlo vaccinationFlu vaccine (#1)[facility] HospitalStart: 63-50-1030Iybucfrks vaccinationInfluenza VaccineECU Health Duplin Hospitaltart: 82-07-7575Hwngxjdjd vaccinationFlu vaccine (#1)[facility] Hospitalart: 12-58-2108Asbzxybwm for malignant neoplasm of cervixPap smearVCU MEDICAL CENTERStart: 49-87-6692Irajdzxdr B vaccine (1 of 3 - 19+ 3-dose series)Hepatitis B vaccine (1 of 3 - 19+ 3-dose series)[facility] Start: 73-08-6770Vseee BMI Follow Up PlanAdult BMI Follow Up PlanECU Health Duplin Hospitaltart: 95-49-5206Hnmukujoi C screeningHepatitis C screenVCU MEDICAL CENTERStart: 46-28-2223MST screeningHIV screenVCU MEDICAL CENTER Start: 05-22-2879Eoweqsqbj vaccine (1 of 2 - 13+ 2-dose series)Varicella vaccine (1 of 2 - 13+ 2-dose series)[facility] Healthart: 54-28-6949Blptjhdxzm ScreenDepression [facility] Centerart: 08-77-4567Cszttluewu ScreeningDepression ScreeningECU Health Duplin Hospitaltart: 18-31-0511Rmjaxfnsz vaccine (1 of 2 - 2-dose childhood series)Varicella vaccine (1 of 2 - 2-dose childhood series)[facility]ENTERStart: 36-43-5203TAKDN-19 Vaccine (#1) COVID-19 Vaccine (#1)[facility] CENTERBacteria identified in Urine by CultureUrine culture Microbiology Routine Missed menses Ordered: 02/13/2025[facility] HealthcareComment on above:Ordered: 02/13/2025BC W Auto Differential panel - BloodCBC and differential Lab Routine Missed menses , unspecified gestational age Ordered: 02/13/2025[facility] HealthcareComment on above:Ordered: 02/13/2025 End: 84-70-0346MIS W Auto Differential panel - BloodCBC and differential Lab Routine Low iron every 4 weeks for 2 Occurrences starting 06/15/2025 until 06/15/2026[facility] Work Phone: comment on above:every 4 weeks for 2 Occurrences starting 06/15/2025 until 06/15/2026 End: 32-45-8798Jtlfimmwbgbfotfq Panel, MolecularB[facility] PARK [facility] [employer] Work Phone: Comment on above:Once for 1 Occurrences starting 05/21/2023 until 05/21/2023Hemoglobin A1c/Hemoglobin.total in BloodHemoglobin A1c Lab Routine Missed menses , unspecified gestational age Ordered: 02/13/2025[facility] HealthcareComment on above:Ordered: 02/13/2025Hepatitis B virus surface Ag [Presence] in Serum or Plasma by ImmunoassayHepatitis B surface antigen Lab Routine Missed menses , unspecified gestational age Ordered : 02/13/2025[facility] HealthcareComment on above:Ordered: 02/13/2025Hepatitis C virus Ab [Presence] in Serum or Plasma by ImmunoassayHepatitis C antibody Lab Routine Missed menses , unspecified gestational age Ordered: 02/13/2025[facility] HealthcareComment on above:Ordered: 02/13/2025HIV-1/HIV-2 antigen/antibody combination immunoassayHIV-1 and HIV-2 antibodies Lab Routine Missed menses , unspecified gestational age Ordered: 02/13/2025[facility] HealthcareComment on above:Ordered: 02/13/2025 End: 05-21-2023O&P PANEL (TRAVEL ASSOCIATED) #1B[facility] CLINICComment on above:Once for 1 Occurrences starting 05/21/2023 until 05/21/2023Reagin Ab [Presence] in Serum by RPRRPR Lab Routine Missed menses , unspecified gestational age Ordered: 02/13/2025[facility] HealthcareComment on above:Ordered: 02/13/2025Rubella antibody, IgGRubella antibody, IgG Lab Routine Missed menses , unspecified gestational age Ordered: 02/13/2025[facility] HealthcareComment on above:Ordered: 02/13/2025US Pelvis transvaginalUS OB transvaginal Imaging Routine Missed menses 02/13/2025 9:51 AM EDTSt[facility] Immunizations Immunization DateImmunizationNotesCare MyzwtcrdYjmqcygi03-01-5431qdcbmoo toxoid, reduced diphtheria toxoid, and acellular pertussis vaccine, adsorbedPwsc [facility] Payers DatePayer CategoryPayerPolicy ID2023MedicaidM[place] MED[place]ID [facility] [id number] 2023-Present [address] [address] [place], [place] [id number] 2023Medicaid (Managed Care)[place] [employer] Member Subscriber Plan / Payer (Effective 2023- Present) Name: Clau Melgozaa Relation to Subscriber: Self Name: Sangeetha Melgoza Payer ID: [id number] (NAIC) Type: Not on file Address: [address] [id number] 91-67-8150Rovivrq Health [id number] 2..1.334818.3.57[id number] 2..1.707912.3.57[id number] 2..1.684281.3.579.[id number] 2..1.660029.3.579.2.86790-86-0188Wdcdjmr7901095 2..1.316189.3.57[id number] 2..1.636601.3.579.2.62096-17-7844Xywcgbq0782530 2.0.1.211338.3.579.2.37099-84-9993Xienein3893540 2.16840.1.632297.3.579.[id number] 2.16.840.1.757616.3.579.2.04697-03-6222Pprqtnz7004284 2.16840.1.963778.3.579.[id number] 2.16840.1.436048.3.57[id number] 2.840.1.832407.3.579.[id number] 2.840.1.208233.3.579.2.662[id number] 2.0.1.692926.3.579.2.[id number] 2.840.1.686501.3.579.2.14254-01-9872Kdkprjf1020393 2.0.1.879976.3.579.2.232585-22-6098Dvycrif35766586 2.840.1.787664.3.579.2.15938-01-1743Kcidbdl73843134 2.0.1.417353.3.579.2.99574-38-9800Rozvxaf79055097 2.16840.1.152935.3.579.2.[id number] 2.840.1.001689.3.579.2.[id number] 2.16840.1.478398.3.579.2.[id number] 2.16840.1.704078.3.579.2.413453-56-4711Corgfcj58765422 2.16.840.1.579790.3.579.2.706883-90-2257Fmlbyyl47072204 2.16.840.1.991430.3.579.2.427699-71-3195Yiovfrr54692512 2.16.840.1.361120.3.579.2.457015-56-1778Qiyynvj07626184 2.16.840.1.461350.3.579.2.783878-94-1044Actpxzg54023559 2.16.840.1.023401.3.579.2.414531-41-3140Mqrhekf42049084 2..840.1.752858.3.57[id number] 2.0.1.062018.3.579.2.620901-03-0061Oillbpa5942010 2.0.1.308927.3.579.2.113480-01-7564Bpcrxot3714505 2.0.1.697310.3.579.2.522966-19-0562Chixtmi478508984164 Social History DateTypeDetailFacilityStart: 09-23-2022 End: 64-30-2261Pfpumer smoking status NHISNever smoked tobaccoBON MARIETTA OSTEOPATHIC CLINICStart: 09-23-2022 End: 20-74-1830Nmndwks use and exposureSmokeless tobacco non-userBON MARIETTA OSTEOPATHIC CLINICStart: 97-18-1587Ojd Assigned At BirthNot on [facility] HospitalTobacco smoking status NHISTobacco smoking consumption unknownOREM COMM[facility] HealthcareStart: 68-88-6014IiqpuhmilIACZ HealthcareStart: 09-23-2022 End: 97-56-5709Qtwmaf identityNot on [facility] HealthcareStart: 09-23-2022 End: 83-78-3035Qkyxgcy of Social functionUniversity Hospitals Elyria Medical Center SystemStart: 30-25-3814Pesw-Only, Retired: Physical AbuseDeniesUniversity Hospitals Elyria Medical Center SystemStart: 66-03-2412Auwmqtx intakeEx-drinker (finding)[facility] SystemStart: 46-85-1636XybSibufi (finding)[facility] Clinical Notes 09-25-2023 to 07-13-2025 Note Date & TbviMostNrgabfxq34-50-8391 History of Present illness Narrative* Carmela Little NP - 07/13/2025 9:30 AM EDT Reason for Appointment: Patient ID: Sangeetha Melgoza is a 29 y.o. female who presents for Routine Visit Patient presents today for Return OB appointment. MEDICATIONS Current Outpatient Medications Medication Instructions Vit-Fe Fumarate-FA ( VITAMIN PO) Take by mouth ALLERGIES Allergies Allergen Reactions Latex Hives Hydrocortisone Hives Morphine Cortisone Rash PROBLEMS Active Ambulatory Problems Diagnosis Date Noted Missed menses 12/11/2023 15 weeks gestation of ([facility]) 03/03/2025 Second trimester fetus ([facility]) 03/03/2025 Resolved Ambulatory Problems Diagnosis Date Noted [...] nursing note reviewed. Exam conducted with a mainspring strip gauger present. Vitals: Estimated body mass index is 35.48 kg/m as calculated from the following: Height as of 02/13/25: 5' 2 . Weight as of this encounter: 194 lb. BP: 134/88 Patient's last menstrual period was 11/12/2024. Assessment/Plan ICD-10-CM 1. Third trimester ([facility]) Z34.93 2. 34 weeks gestation of ([facility]) Z3A.34 POCT urinalysis dipstick manually resulted Return [...] week for routine OB appointment. Documented by Carmela Little NP on behalf of: Bridger Sims DO documented in this encounterSt. Lukes Des Peres [id number] History of Present illness Narrative* PARDEEP Joaquin - 06/30/2025 9:30 AM EDT Reason for Appointment: Patient ID: Sangeetha Melgoza is a 29 y.o. female who presents for Routine Visit Patient presents today for Return OB appointment. MEDICATIONS Current Outpatient Medications Medication Instructions Vit-Fe Fumarate-FA ( VITAMIN PO) Take by mouth ALLERGIES Allergies[1] PROBLEMS Active Ambulatory Problems Diagnosis Date Noted Missed menses 12/11/2023 15 weeks gestation of ([facility]) 03/03/2025 Second trimester fetus ([facility]) 03/03/2025 Resolved Ambulatory Problems Diagnosis Date Noted No Resolved Ambulatory Problems Past Medical History: Diagnosis Date Anemia HISTORY PAST MEDICAL HISTORY SOCIAL HISTORY Medical History[2] Social History Tobacco Use Smoking status: Not on file Smokeless tobacco: Not on file Substance Use Topics Alcohol use: Not on file Drug use: Not on file FAMILY HISTORY Family History[3] SURGICAL HISTORY Surgical History[4] REVIEW OF SYSTEMS Review of Systems: Review [...] reviewed. Vitals: Estimated body mass index is 35.57 kg/m as calculated from the following: Height as of 02/13/25: 5' 2 . Weight as of this encounter: 194 lb 8 oz. BP: 110/60 Patient's last menstrual period was 11/12/2024. ASSESSMENT & PLAN ICD-10-CM 1. Third trimester ([facility]) Z34.93 POCT urinalysis dipstick manually resulted 2. 32 weeks gestation of ([facility]) Z3A.32 Return OB: Patient presents today for a routine obstetrics appointment. Patient is currently 32w6d . Patient states she is doing well [...] PARDEEP Joaquin on behalf of: PARDEEP Joaquin [1] Allergies Allergen Reactions Latex Hives Hydrocortisone Hives Morphine Cortisone Rash [2] Past Medical History: Diagnosis Date Anemia [3] Family History Problem Relation Name Age of Onset Seizures Father [4] No past surgical history on file. documented in this encounterSt. Lukes Des Peres HospitalYwlkpnbxdr39-99-4209 History of Present illness Narrative* Carmela Little, DOROTHY - 06/15/2025 8:50 AM EDT Reason for Appointment: Patient ID: Sangeetha Melgoza is a 29 y.o. female who presents for Routine Visit Patient presents today for Return OB appointment. MEDICATIONS Current Outpatient Medications Medication Instructions iron polysaccharides (PROFE) 391.3 mg, Oral, Daily Vit-Fe Fumarate-FA ( VITAMIN PO) Take by mouth ALLERGIES Allergies Allergen Reactions Latex Hives Hydrocortisone Hives Morphine Cortisone Rash PROBLEMS Active Ambulatory Problems Diagnosis Date Noted Missed menses 12/11/2023 15 weeks gestation of ([facility]) 03/03/2025 Second trimester fetus ([facility]) 03/03/2025 Resolved Ambulatory Problems Diagnosis Date Noted [...] nursing note reviewed. Exam conducted with a mainspring strip gauger present. Vitals: Estimated body mass index is 34.9 kg/m as calculated from the following: Height as of 25: 5' 2 . Weight as of this encounter: 190 lb 12.8 oz. BP: 120/70 Patient's last menstrual period was 11/12/2024. ASSESSMENT & PLAN ICD-10-CM 1. 30 weeks gestation of ([facility]) Z3A.30 POCT urinalysis dipstick manually resulted 2. Third trimester ([facility]) Z34.93 POCT urinalysis dipstick manually resulted 3. Uterine synechiae N85.6 4. Low iron E61.1 Return OB: Patient presents today for a routine obstetrics appointment. Patient is currently 30w5d . Patient states she is doing well but has complaints of being tired due to current . Patient has verbalizes frequent movement. labor precautions was discussed/given and patient was instructed to perform kick counts three times a day. Orders Placed This Encounter Procedures POCT urinalysis dipstick manually resulted Follow Up: Patient is to return to office in 2 week for routine OB appointment. CBC every 4 weeks and Growth ultrasound every 4 weeks. Iron transfusion was denied per insurance patient has continued with ProFE Documented by Jacqueline Joyce LPN on behalf of: Carmela Little NP documented in this encounterSt. Lukes Des Peres HospitalFofpegcasy28-06-9100 History of Present illness Narrative* Bridger Sims DO - 06/01/2025 10:20 AM EDT Reason for Appointment: Patient ID: Sangeetha Melgoza is a 29 y.o. female who presents for Routine Visit Patient presents today for Return OB appointment. Current Medications: has a current medication list which includes the following prescription(s): iron polysaccharides and vit-fe fumarate-fa. Medical History: Active Ambulatory Problems Diagnosis Date Noted Missed menses 12/11/2023 15 weeks gestation of ([facility]) 03/03/2025 Second trimester fetus ([facility]) 03/03/2025 Resolved Ambulatory Problems Diagnosis Date Noted [...] nursing note reviewed. Exam conducted with a mainspring strip gauger present. Vitals: Estimated body mass index is 34.82 kg/m as calculated from the following: Height as of 02/13/25: 5' 2 . Weight as of this encounter: 190 lb 6.4 oz. BP: 104/72 Patient's last menstrual period was 11/12/2024. Assessment/Plan Encounter Diagnosis: ICD-10-CM 1. 28 weeks gestation of ([facility]) Z3A.28 Urine dip 2. Third trimester ([facility]) Z34.93 Urine dip Return OB: Patient presents [...] of: Bridger Sims DO documented in this encounterSt. Lukes Des Peres [id number] History of Present illness Narrative* PARDEEP Joaquin - 05/04/2025 9:20 AM EDT Reason for Appointment: Patient ID: Sangeetha Melgoza is a 29 y.o. female who presents for Routine Visit Patient presents today for Return OB appointment. MEDICATIONS Current Outpatient Medications Medication Instructions Vit-Fe Fumarate-FA ( VITAMIN PO) Take by mouth ALLERGIES Allergies Allergen Reactions Latex Hives Morphine Cortisone Rash PROBLEMS Active Ambulatory Problems Diagnosis Date Noted Missed menses 12/11/2023 15 weeks gestation of ([facility]) 03/03/2025 Second trimester fetus ([facility]) 03/03/2025 Resolved Ambulatory Problems Diagnosis Date Noted [...] PLAN ICD-10-CM 1. 24 weeks gestation of ([facility]) Z3A.24 POCT urinalysis dipstick manually resulted 2. Second trimester ([facility]) Z34.92 POCT urinalysis dipstick manually resulted 3. [...] behalf of: PARDEEP Joaquin documented in this encounterSt. Lukes Des Peres [id number] History of Present illness Narrative* PARDEEP Joaquin - 04/06/2025 10:40 AM EDT Reason for Appointment: Patient ID: Sangeetha Melgoza is a 29 y.o. female who presents for Routine Visit Patient presents today for Return OB appointment. MEDICATIONS Current Outpatient Medications Medication Instructions Vit-Fe Fumarate-FA ( VITAMIN PO) Oral ALLERGIES Allergies Allergen Reactions Latex Hives Morphine Cortisone Rash PROBLEMS Active Ambulatory Problems Diagnosis Date Noted Missed menses 12/11/2023 15 weeks gestation of ([facility]) 03/03/2025 Second trimester fetus ([facility]) 03/03/2025 Resolved Ambulatory Problems Diagnosis Date Noted [...] ASSESSMENT & PLAN ICD-10-CM 1. Second trimester ([facility]) Z34.92 2. 20 weeks gestation of ([facility]) Z3A.20 Return OB: Patient presents today for a routine obstetrics appointment. Patient is currently 20w5d . Patient states she is doing well but has complaints of being tired due to current . Patient has verbalizes frequent movement. No orders of the defined types were placed in this encounter. Patient will be referred to [facility] for possible amniotic band found on US today Follow Up: Patient is to return to office in 4 week for routine OB appointment. Documented by PARDEEP Joaquin on behalf of: PARDEEP Joaquin documented in this encounterSt. Lukes Des Peres [id number] History of Present illness Narrative* Erendira Martinez, MATERIAL CLERK - 03/03/2025 9:50 AM EDT Reason for Appointment: Patient ID: Sangeetha Melgoza [...] Missed menses 12/11/2023 15 weeks gestation of ([facility]) 03/03/2025 Second trimester fetus ([facility]) 03/03/2025 Resolved Ambulatory Problems Diagnosis Date Noted [...] nursing note reviewed. Exam conducted with a mainspring strip gauger present. Vitals: Estimated body mass index is 32.58 kg/m as calculated from the following: Height as of 02/13/25: 5' 2 . Weight as of this encounter: 178 lb 1.9 oz. BP: 112/64 No LMP recorded (lmp unknown). Patient is . ASSESSMENT & PLAN ICD-10-CM 1. 15 weeks gestation of ([facility]) Z3A.15 Alpha fetoprotein, maternal Alpha fetoprotein, maternal POCT urinalysis dipstick manually resulted 2. Second trimester fetus ([facility]) Z34.92 Alpha fetoprotein, maternal Alpha fetoprotein, maternal [...] or undercooked meat, and stay away from [facility]. Patient has been consulted regarding any further do's and don'tsof . Patient voiced understanding and all questions and concerns were answered. Pt given an atomy scan order to have obtained between 20-22 weeks. Pt given 6 hour work day restrictions starting now until delivery Orders Placed This Encounter Procedures Alpha fetoprotein, maternal POCT urinalysis dipstick manually resulted Follow Up: Patient is to return in 4 weeks for routine OB appointment. Documented by Erendira Martinez LPN on behalf of: Bridger Sims DO documented in this encounterSt. Lukes Des Peres [id number] History of Present illness Narrative* Rosana Montague MA - 02/13/2025 10:00 AM EDT Reason for Appointment: Patient ID: Sangeetha Melgoza is a 29 y.o. female who presents for Amenorrhea Patient presents today for a Nurse OB Intake appointment. Patient is 13w2d with a Estimated Date ofDelivery: 08/19/25 OB History Para Term AB Living [...] drink 6-8 glasses of water a day, eatno raw or undercooked meat, and stay away from [facility]. Patient has also been advised to not change litter boxes and eat 6 small meals a day. Patient has been consulted regarding the do's and don'ts ofpregnancy. Patient was given labs and all questions and concerns were answered. Follow Up: Patient is to have labs drawn at directed and return to office for initial OB appointment with provider in 2 weeks. Patient may call office as needed with any concerns or questions. Nurse Visit Completed by: Rosana Montague MA documented in this encounterSt. Lukes Des Peres [id number] Hospital Discharge instructions* Discharge Instructions* Evangelist Jenkins MD - 09/13/2024 7:07 PM EST Go [...] not relieved by acetaminophen (Tylenol) and/or ibuprofen (Motrin/ Advil), chills, shortness of breath, chest pain, feeling of your heart fluttering or racing, persistent nausea and/or vomiting, vomiting up blood, blood in your stool, numbness, loss of consciousness, weakness or tingling in the arms or legs or change in color of the extremities, changes in mental status, persistent headache, blurry vision, loss of bladder / bowel control, unable to follow up wi th your physician, or other any other care or concern. * Attachments The following attachments cannot be sent through Care Everywhere. * Hand Laceration: Stitches (Singaporean) documented in this encounterBon [facility]24 History of Present illness Narrative* Erendira Martinez LPN - 06/10/2024 9:00 AM EDT Reason for Appointment: Patient ID: Sangeetha Melgoza [...] nursing note reviewed. Exam conducted with a mainspring strip gauger present. Vitals: There is no height or [...] by Erendira Martinez LPN on behalf of: Bridger Sims DO documented in this encounterSt. Lukes Des Peres [id number] History of Present illness Narrative* PARDEEP Joaquin - 06/03/2024 10:10 AM EDT Reason for Appointment: Patient ID: Sangeetha Melgoza [...] behalf of: PARDEEP Joaquin documented in this encounterSt. Lukes Des Peres HospitalMxmpzzzvkp30-10-5809 History of Present illness Narrative* Erendira Martinez LPN - 05/27/2024 11:10 AM EDT Reason for Appointment: Patient ID: Sangeetha Melgoza [...] nursing note reviewed. Exam conducted with a mainspring strip gauger present. Vitals: There is no height or [...] by Erendira Martinez LPN on behalf of: Bridger Sims DO documented in this encounterSt. Lukes Des Peres [id number] History of Present illness Narrative* PARDEEP Joaquin - 05/13/2024 8:50 AM EDT Reason for Appointment: Patient ID: Sangeetha Melgoza [...] behalf of: PARDEEP Joaquin documented in this encounterSt. Lukes Des Peres HospitalSfmqndjrls85-48-8918 Miscellaneous Notes* Telephone Encounter - Sarita Salomon RDMS, RVT - 01/28/2024 1:46 PM EDT Called and spoke to nurse Jacqueline in Dr. Sims's office regarding order sent to [facility]. Order for EFW percentile at 6th percentile on ultrasound done at [facility]. Explained that they used 06/17/24 as the VANGIE on that ultrasound instead of the document VANGIE of 06/24/24. Office called [facility] and they are recalculating the report and sending an addendum. Order can be disregarded. documented in this encounterSumma [facility] Telephone encounter Note* Telephone Encounter - Sarita Salomon RDMS, RVT - 01/28/2024 1:46 PM EDT Called and spoke to nurse Jacqueline in Dr. Sims's office regarding order sent to [facility]. Order for EFW percentile at 6th percentile on ultrasound done at [facility]. Explained that they used 06/17/24 as the VANGIE on that ultrasound instead of the document VANGIE of 06/24/24. Office called [facility] and they are recalculating the report and sending an addendum. Order can be disregarded. [facility]01-09-2024 History of Present illness Narrative* Bella Pagan LPN - 09/25/2023 1:15 PM EST IUD Removal Procedure Note Type of IUD: Mirena Date of insertion: 2019 Reason for removal: Desires - last pap was [address] Jiménez Other relevant history/information: none Procedure Time Out Documentation Procedure Details IUD strings visible: yes Removal: IUD strings grasped and IUD removed intact with gentle traction. The patient tolerated theprocedure well. All appropriate instructions regarding removal were [...] Loo APRN-CNP 09/25/23 1344 documented in this encounterSumma Health [facility] CenterEvaluation note* Diagnosis Third trimester state, incidental documented [...] encounter- Primary documented in this encounter Mitch Jessica [facility]* Diagnosis Encounter for IUD removal- Primary documented in this encounter [facility] SystemEvaluation note* Diagnosis Missed menses , unspecified gestational age Encounter for supervision of normal first in first trimester [facility]* Diagnosis 15 weeks gestation of ([facility]) Second trimester fetus ([facility]) Screening, , for anatomic survey ([facility]) Encounter for anatomic survey documented in [...] in this encounter [facility]* Diagnosis 30 weeks gestation of ([facility]) Third trimester ([facility]) state, incidental Uterine synechiae Low iron Unspecified iron deficiency anemia documented [facility]* Diagnosis Third trimester ([facility]) state, incidental 32 weeks gestation of ([facility]) documented in this [facility]* Diagnosis Third trimester ([facility]) state, incidental 34 weeks gestation of ([facility]) documented in this encounter [facility] HealthcareInstructions* Attachments The following attachments cannot be sent through Care Everywhere. * How to plan and prepare for a healthy (Singaporean) documented in this encounterUniversity [facility]als [facility] SystemInstructionsNot on file documented in this encounterUniversity [facility]als [facility] Summary Purpose Family History [...] section and content) DATE CREATED AUTHOR 03/13/2018 [facility] DATE CREATED AUTHOR AUTHOR'S ORGANIZ ATION 06/02/2020 [facility] DATE CREATED AUTHOR AUTHOR'S ORGANIZ ATION 04/26/2023 [facility] DATE CREATED AUTHOR AUTHOR'S ORGANIZ ATION 09/30/2023 [facility] DATE CREATED AUTHOR AUTHOR'S ORGANIZ ATION 01/15/2025 [facility] DATE CREATED AUTHOR AUTHOR'S ORGANIZ ATION 07/14/2025 [facility] EPIC Care Teams (unrecognized sec tion and content) Team MemberRelationshipSpecialtyStart DateEnd Date Sarita Bedoya HIDES INSPECTOR - MANAGER INFUSION [address] [place] [address] PCP - GeneralCertified Clinical Nurse Specialist04/16/23 MemberRelationship SpecialtyStart DateEnd Date SbempSarita dempsey HIDES INSPECTOR - MANAGER INFUSION [address] [place] [address] PCP - GeneralCertified Clinical Nurse Specialist04/16/23 MemberRelationship SpecialtyStart DateEnd Date SbempSarita dempsey HIDES INSPECTOR-VP [employer] [address] [address] PCP - GeneralNurse Practitioner05/05/21Te MemberRelationshipSpecialtyStart Date End Date SbempSarita dempsey, HIDES INSPECTOR-VP [employer] [address] [address] PCP - GeneralNurse Practitioner05/05/21Team MemberRelationshipSpecialtyStart Date End Date Sarita Bedoya, HIDES INSPECTOR - MANAGER INFUSION [address] [place] [address] PCP - GeneralCertified Clinical Nurse Specialist04/16/23 Reason for Visit (unrecogniz ed section and content) ReasonCommentsRoutine VisitReasonCommentsLacerationLaceration to left middle finger from opening a can.ReasonCommentsContraceptionIUD RemovalReason CommentsAmenorrhea Scheduled Active and Recently Administ ered Medications (unrecognized section and content) Medication Order//[id number]/ lidocaine PF 1 % injection 5 mL 5 mL, Other, ONCE, 1 dose, On 09/13/24 at 1830 * 1830 (Due) FOR RECORDS PERTAINING TO PATIENTS [...] BE BASED ON THE PRIMARY CLINICAL RECORDS. [employer] provides no warranty or guarantee of the accuracy or completeness of information in this document.
--- OUTSIDE RECORDS SUMMARY | 2025-07-17 17:58 | XMS_ITS | Encounter Summary ---
Author Organization [facility] Address [address] [place] [address] Care Team Providers Care On Call Pharmacy Technician Name Role Phone Unavailable Primary Care Provider Unavailabl e Encounter Details DateTypeDepartmentCare Team (Latest Contact Info)Nfglbjfpuoi17/07/2024linisync Result Encounter [facility] Unsolicited Bridger Sims DO [address] [place] [place], [place] [id number] Social History Tobacco UseTypesPacks/DayYears UsedDateSmoking Tobacco: Never Assessed CommentsYesSex and Gender InformationValueDate RecordedSex Assigned at BirthNot on fileLegal NtdNxfaux95/08/2024 12:01 PM ESTGender IdentityNot on fileSexual OrientationNot on filedocumented as of this encounter Plan of Treatment DateTypeDepartmentCare Team (Latest Contact Info)Ssyfqchcvaw78/03/2025 9:50 AM ESTRoutine [facility] [address] [place] [address] Sarita Mcnair PA [address] [place] [address] documented as of this encounter Procedures Procedure NamePriorityDate/TimeAssociated DiagnosisCommentsUS OB ANATOMY 01/22/2024 10:58 AM EDT documented in this encounter Results * US OB ANATOMY (01/22/2024 10:58 AM EDT)Anatomical RegionLateralityModality OtherSpecimen (Source)Anatomical Location / LateralityCollection Method / VolumeCollection TimeReceived Time01/22/2024 10:58 AM EDT Narrative 01/22/2024 11:00 AM EDT [facility] ?[address] ? [place] [address] ? Ultrasound Report ? Signed ? Patient: MAGERS,YAKELIN P ?MR#: [id number] ?? : 1995 ?Acct:[id number] ?? Age/Sex: 28 / F ?ADM Date: 01/22/24 ?? Loc: US ? Attending Dr: Bridger Sims D.O. ? Ordering Physician: Bridger Sims D.O. ?? Date of Service: 01/22/24 ?? Procedure(s): US OB anatomy ?? Accession Number(s): [id number] ? cc: Bridger Sims D.O.; Physician,Non-Staff M.D. ? [facility] ? [address] ? [place] [address] ? Patient Name: ?? YAKELIN MELGOZA ? MRN: [facility]:[id number] ? date: 1995 ?Sex: F ?? Assigned Patient Location: US ?? Current Patient Location: US ?? Accession/Order Number: [id number] ?? Exam Date: 01/22/2024 ??09:50 ?Report Date: 01/22/2024 ??10:58 ? At the request of: ?? BRIDGER ??BETHANY ? Procedure: ??US OB anatomy ? EXAMINATION: US OB anatomy, US OB cervical length ? HISTORY: Screening For Anatomic Survey Z36.89 ? COMPARISON: Ultrasound OB transvaginal 12/13/2023 ? TECHNIQUE: Transabdominal sonographic examination was performed for ?? obstetrical ?? and evaluation. ? FINDINGS: ? Number: 1 ?? Heart Rate: 142.1 bpm H.B. /min ?? Amniotic Fluid Volume: Surgically normal ?? Placental Location: ANTERIOR, grade 1, with lower margin 3.7 cm from os. 2.7 x ? 2.2 x 1.0 cm venous chandra, likely incidental. ?? Cervix Length: 5.8 cm, closed. ? ANATOMY: Normal Structures -cerebellum, choroid plexus, cisterna magna, ?? lateral ?? cerebral ventricles, orbits, midline falx, hard palate, four-chamber heart, ?? RVOT, LVOT, stomach, kidneys, bladder, umbilical cord insertion into abdomen, ?? three-vessel cord, cervical spine, thoracic spine, lumbar spine, sacral spine, ? right upper extremity, left upper extremity, right lower extremity, left lower ? extremity. ? SUBOPTIMALLY SEEN: None ?? ABNORMALITIES: None ? BIOMETRY: ?? BPD: 3.7 cm 17 weeks 3 days ; 3% ?? HC: 14.5 cm 17 weeks 5 days; < 3% AC: 12.5 cm 18 weeks 1 days; 19% ?? FL: 2.6 cm 17 weeks 6 days ; 11% ?? EFW:218.1 grams; 6% ?? FL/AC: 20.8 ?? FL/BPD: 69.7 ?? HC/AC: 1.2 ? GESTATIONAL AGE: ?? Age by EDC: 19 weeks 0 days ?? VANGIE by EDC: 06/17/2024 ?? Age by current US: 17 weeks 6 days ?? VANGIE by current US: 06/25/2024 ? US/ OB anatomy ?? IMPRESSION: ? 1. Single live intrauterine with growth detailed above. ?? 2. Estimated weight is 6th percentile. Head circumference is < 3rd percentile. ? Electronically authenticated by: LEISA ??DAVID ?? Date: 01/22/2024 ??10:58 ? Dictated By: ?Leisa Aj M.D. ? Signed By: ?01/22/24 1100 ? DD/ 1058 ? TD/TT: ? Jackhammer Splitter Operator: Procedure Note Radiology, Radiologist, - 01/22/2024 [place] [address] Ultrasound Report Signed Patient: YAKELIN MELGOZA PMR#: [id number] : 1995Acct:[id number] Age/Sex: 28 / FADM Date: 01/22/24 Loc: US Attending Dr: Bridger Sims D.O. Ordering Physician: Bridger Sims D.O. Date of Service: 01/22/24 Procedure(s): US OB anatomy Accession Number(s): [id number] cc: Bridger Sims D.O.; Physician,Non-Staff M.DRina The [address] [address] Patient Name: YAKELIN MELGOZA MRN: [id number] date: 1995 Sex: F Assigned Patient Location: US Current Patient Location: US Accession/Order Number: [id number] Exam Date: 01/22/2024 09:50 Report Date: 01/22/2024 [...] M.D. Signed By:01/22/24 1100 DD/ 1058 TD/TT: Jackhammer Splitter Operator: Authorizing ProviderResult TypeResult StatusCorey Bethany DOCLINISYNC IMAGINGFinal Result documented in this encounter Visit Diagnoses Not on filedocumented in this encounter
--- OUTSIDE RECORDS SUMMARY | 2025-07-17 17:58 | XMS_ITS | Clinical Summary ---
Author Organization [facility] Address [address] [place] [address] Care Team Providers Care Board Layer Name Role Phone Unavailable Primary Care Provider Unavailabl e Allergies Active AllergyReactionsCriticalityNoted TkylYzvwnrcxCfnsdpxhdMvhoRuz60/30/2024 TbuipwvwtugipcWygog96/07/1482IxlfrGwmthSkjudx18/07/4057Kjynvksf74/28/2024 Medications MedicationSigDispense QuantityRefillsLast FilledStart DateEnd DateStatus Vit-Fe Fumarate-FA ( VITAMIN PO) Indications:Missed menses,, unspecified gestational age ([facility])Take by mouthActive Active Problems ProblemNoted DateDiagnosed Date15 weeks gestation of ([facility]) 03/03/2025Second trimester fetus ([facility])03/03/2025Missed wpucyb4512/11/2023 Estimated Date of DntncgfrTbbauqzpSec51/03/2025ased on Ultrasound Encounters DateTypeDepartmentCare OltxDcgcrdonmmv22/27/2025 9:30 [place] [address] Bridger Sims DO Third trimester ([facility]); 34 weeks gestation of ([facility])07/13/2025amboo [place] [address] Bridger Sims DO 06/30/2025 9:30 [place] [address] Sarita Mcnair PA Third trimester ([facility]); 32 weeks gestation of ([facility])06/30/2025 9:00 AM EDTAncillary Procedure [facility] [address] [place] [address] Third trimester ([facility]); Uterine fcwahatyl93/30/2025bstract [facility] [address] [place] [address] Rosana Montague MA 06/15/2025 8:50 AM EDTRoutine [facility] [address] [place] [address] Laquita Little, DOROTHY 30 weeks gestation of ([facility]); Third trimester ([facility]); Uterine synechiae; Low iron06/15/2025Telephone [facility] [address] [place] [address] Cher Llamas LPN 5Bamboo flowsheet [facility] [address] [place] [address] Laquita Little, DOROTHY 5Clinisync Result Encounter NOMS External Department Unsolicited Bridger Sims DO 06/04/2025Telephone [facility] [address] [place] [address] Cydney Vitale MA 06/01/2025 10:20 AM EDTRoutine [facility] [address] [place] [address] Bridger Sims DO 28 weeks gestation of ([facility]); Third trimester ([facility])06/01/2025 9:30 AM EDTAncillary Procedure [facility] [address] [place] [address] Uterine ecynjfdub37/15/2025Clinisync Result Encounter [facility] External Department Unsolicited Bridger Sims, DO 05/12/2025Telephone [facility] [address] [place] [address] [phone] Bridger Sims, DO 05/07/2025Telephone [facility] [address] [place] [address] Cydney Vitale MA 05/07/2025linisync Result Encounter NOMS External Department Unsolicited Sarita Mcnair PA 05/04/2025 9:20 AM EDTRoutine [facility] [address] [place] [address] Sarita Mcnair PA 24 weeks gestation of ([facility]); Second trimester ([facility]); Diabetes mellitus bepnhnxyk20/18/2025 8:30 AM EDTAncillary Procedure [facility] [address] [place] [address] Encounter for follow-up ultrasound of anatomy ([facility])04/29/2025bstract [facility] [address] [place] [address] [phone] Bridger Sims, DO 04/29/2025bstract [facility] [address] [place] [address] Sarita Mcnair PA from Last 3 Months Family History Medical HistoryRelationNameCommentsSeizuresFatherRelationNameStatusComments Father Social History Tobacco UseTypesPacks/DayYears UsedDateSmoking Tobacco: Never Assessed Estimated Date of AovxzobmAdtowsuwGjd66/03/2025Based on UltrasoundSex and Gender InformationValueDate RecordedSex Assigned at BirthNot on fileLegal SexFemale 10/25/2023 12:01 PM ESTGender IdentityNot on fileSexual OrientationNot on file Last Filed Vital Signs Vital SignReadingTime TakenCommentsBlood Unmefjnm615/8810 9:24 AM EDT Pulse--Temperature--Respiratory Rate--Oxygen Saturation--Inhaled Oxygen Concentration--Rigisr64 kg (194 lb)07/13/2025 9:24 AM KCATwlvbi496.5 cm (5' 2 ) 02/13/2025 10:16 AM EDTBody Mass Index35.48002/13/2025 10:16 AM EDT Plan of Treatment DateTypeDepartmentCare Team (Latest Contact Info)Mznqknkpshd79/03/2025 9:50 AM ESTRoutine [facility] [address] [place] [address] Sarita Mcnair PA [address] [place] [address] Procedures Procedure NamePriorityDate/TimeAssociated DiagnosisCommentsPOCT URINALYSIS ZQLJONLPTymreuv89/27/2025 9:32 AM EDT 34 weeks gestation of ([facility]) POCT URINALYSIS BZVCWPQRQujmnub66/14/2025 9:51 AM EDT Third trimester ([facility]) OB FOLLOW UP TRANSABDOMINAL GWODPABIJgvzizq69/14/2025 9:38 AM EDT Third trimester ([facility]) Uterine synechiae POCT URINALYSIS YSWCALYXVkzasmg48/29/2025 8:49 AM EDT 30 weeks gestation of ([facility]) Third trimester ([facility]) QZARRJKPOGHQdoniiq97/19/2025 8:26 AM EDT [facility] VQJZEMLLKfkxwww97/19/2025 8:26 AM EDT POCT URINALYSIS CZKAHRHPJxxrjop14/15/2025 10:34 AM EDT 28 weeks gestation of ([facility]) Third trimester ([facility]) US OB FOLLOW UP TRANSABDOMINAL GRUDYQSPErgxagt23/15/2025 10:01 AM EDT Uterine synechiae ALL CBC WITH AUTO MFQSWvtxirl44/15/2025 8:28 AM EDT GLUCOSE 1 IKXUSxrzxwo31/21/2025 7:41 AM EDT ALL CBC WITH AUTO TKZYTnjuhjw22/21/2025 7:41 AM EDT POCT URINALYSIS IWFWKCSAFcnupbs89/18/2025 9:03 AM EDT 24 weeks gestation of ([facility]) Second trimester ([facility]) US OB LIMITED 1+ UJSMRFSRifhlwf92/18/2025 8:47 AM EDT Encounter for follow-up ultrasound of anatomy ([facility]) from Last 3 Months Results * (ABNORMAL) POCT urinalysis dipstick manually resulted (07/13/2025 9:32 AM EDT) Only the most recent of5 resultswithin the time period is included. ComponentValueRef RangeTest MethodAnalysis TimePerformed AtPathologist Signature Color, UAYellowClarity, UAClearGlucose, UANegativeNegative - 2000(110) ++++ mg/dLBilirubin, UANegativeNegative - 4(70) +++ mg/dLKetones, UANegativeNegative - 160(16) ++++ mg/dLSpec Grav, UA1.0201 - 1.03Blood, UANegativeNegative - 50 Haseeb/mcLpH, UA6.05 - 9Protein, UATraceNegative - 2000(20) ++++ mg/dLUrobilinogen, UA2.00.2 - 12 mg/dLLeukocytes, UANegativeNegative - 500+++ Ronaldo/mcLNitrite, UA NegativeNegative - PositiveSpecimen (Source)Anatomical Location / Laterality Collection Method / VolumeCollection TimeReceived ArkhMzxsp62/27/2025 9:32 AM EDT Narrative Authorizing ProviderResult TypeResult StatusCorey Bethany [facility]ITAL[facility]INT [facility]ARE TEST ENTER/EDIT ORDERABLESFinal Result * US OB follow up transabdominal approach (06/30/2025 9:38 AM EDT) Only the most recent of2 resultswithin the time period is included. Anatomical RegionLateralityModalityBodyUltrasoundSpecimen (Source)Anatomical Location / LateralityCollection Method / VolumeCollection TimeReceived Time 06/30/2025 11:56 AM EDT Impressions 07/01/2025 7:05 AM EDT 1. Single, live intrauterine , current sonographic age of 33 weeks and 3 days, with an estimated date of delivery of August 15, 2025 (prior VANGIE August 20, 2025) 2. Persistent synechiae * ??Estimated Weight (g) by Percentile is based upon an accurate estimated age based onlast menstrual period. ?? TRANSCRIBED BY: ? ELECTRONICALLY SIGNED BY: Pedro Luis Packer MD Narrative 07/01/2025 7:05 AM EDT FINDINGS: A single, live intrauterine is present with normal cardiac rate of 132 beats per minute. Normal activity and amniotic fluid volume. Amniotic fluid index is 15 cm. ??Morphology is grossly normal. The placenta is anterior, not associated with the cervical os. ??The current sonographic age is 33 weeks and 3 days, based on the following measurements: ?BPD ? 8.1 cm (32 weeks, 3 days) ?Head Circumference ?30.7 cm (34 weeks, 1 day) ?Abdominal Circumference ?29.1 cm (33 weeks, 0 days) ?Femur Length ?6.7 cm (34 weeks, 2 days) ?Presentation ? Cephalic ? Weight (g) by Percentile ??60.7 % * These measurements result in an estimated date of delivery of August 15, 2025. ?? The current estimated weight is 2205 grams (4 pounds, 14 ounces). ?? Persistent posterior uterine synechiae, minimal change. Procedure Note Pedro Luis Packer MD - 07/01/2025 FINDINGS: A single, live intrauterine is present with normal cardiacrate of 132 beats per minute. Normal activity and amniotic fluidvolume. Amniotic fluid index is 15 cm. Morphology is grossly normal. Theplacenta is anterior, not associated with the cervical os. The currentsonographic age is 33 weeks and 3 days, based on the followingmeasurements: BPD 8.1 cm (32 weeks, 3 days) Head Circumference 30.7 cm (34 weeks, 1 day) Abdominal Circumference 29.1 cm (33 weeks, 0 days) Femur Length 6.7 cm (34 weeks, 2 days) Presentation Cephalic Weight (g) by Percentile 60.7 % * These measurements result in an estimated date of delivery of July. The current estimated weight is 2205 grams (4 pounds, 14ounces). Persistent posterior uterine synechiae, minimal change. IMPRESSION: 1. Single, live intrauterine , current sonographic age of 33weeks and 3 days, with an estimated date of delivery of August 15, 2025(prior VANGIE August 20, 2025) 2. Persistent synechiae * Estimated Weight (g) by Percentile is based upon an accurateestimated age based on last menstrual period. TRANSCRIBED BY: ELECTRONICALLY SIGNED BY: Pedro Luis Packer MD Authorizing ProviderResult TypeResult StatusMeadowview Psychiatric [facility] NPIMG OB US PROCEDURESFinal Result * (ABNORMAL) TRANSFERRIN (06/05/2025 8:26 AM EDT)ComponentValueRef RangeTest MethodAnalysis TimePerformed AtPathologist ZjkkavqjfPCCZDLOLOVX787(A)192 - 364 mg/dLTBHComment: Performed at: ?? - [facility] [address] ??[id number] Engineering Technical Writer: Romulo Yoon PhD, Phone: ??[phone] Specimen (Source)Anatomical Location / LateralityCollection Method / Volume Collection TimeReceived Time06/05/2025 8:26 AM EDT06/05/2025 8:29 AM EDT Narrative [facility] - 06/06/2025 4:16 AM EDT Authorizing ProviderResult TypeResult StatusCorey Bethany DOLAB BLOOD ORDERABLES Final ResultPerforming OrganizationAddressCity/State/ZIP CodePhone Number KASIA RAYMUNDO * (ABNORMAL) [facility] FERRITIN (06/05/2025 8:26 AM EDT)ComponentValueRef RangeTest MethodAnalysis TimePerformed AtPathologist SignatureFERRITIN5.0(L)8.0 - 252.0 ng/mLTBHSpecimen (Source)Anatomical Location / LateralityCollection Method / VolumeCollection TimeReceived Time06/05/2025 8:26 AM EDT06/05/2025 8:29 AM EDT Narrative [facility] - 06/05/2025 9:57 AM EDT Authorizing ProviderResult TypeResult StatusCorey Bethany DOCLINISYNCFinal Result Performing OrganizationAddressCity/State/ZIP CodePhone Number KASIA [facility] * (ABNORMAL) ALL CBC WITH AUTO DIFF (06/01/2025 8:28 AM EDT) Only the most recent of2 resultswithin the time period is included. ComponentValueRef RangeTest MethodAnalysis TimePerformed AtPathologist Signature TBH WBC9.84.0 - 11.0 10 3/uLTBHTBH RBC3.65(L)4.20 - 5.40 10 6/uLTBHTBH HGB9.1(L) 12.0 - 16.0 g/dLTBHTBH HCT28.1(L)36.0 - 48.0 %TBHTBH MCV77.0(L)81.0 - 99.0 fLTBH TBH MCH24.9(L)26.7 - 34.0 pgTBHTBH MCHC32.429.9 - 35.2 g/dLTBHTBH RDW13.911.0 - 15.0 %TBHTBH QSV303773 - 450 10 3/uLTBHTBH MPV10.29.5 - 13.5 fLTBHNEUTROPHILS PERCENT AUTO78.5(H)43.0 - 75.0 %TBHLYMPHOCYTES PERCENT AUTO12.6(L)20.5 - 60.0 % TBHMONOCYTES PERCENT AUTO7.21.7 - 12.0 %TBHTBH EO %0.7(L)0.9 - 7.0 %TBHBASOPHILS PERCENT AUTO0.30.2 - 2.0 %TBHIMMATURE GRANULOCYTES PCT AUTO0.7(H)0.0 - 0.5 %TBH NEUTROPHILS ABSOLUTE AUTO7.7(H)1.4 - 6.5 10 3/uLTBHLYMPHOCYTES ABSOLUTE AUTO1.2 1.2 - 3.8 10 3/uLTBHMONOCYTES ABSOLUTE AUTO0.70.3 - 0.8 10 3/uLTBHTBH EO #0.10.0 - 0.7 10 3/uLTBHBASOPHILS ABSOLUTE AUTO0.00.0 - 0.1 10 3/uLTBHIMMATURE GRANULOCYTES ABS AUTO0.07(H)0.00 - 0.03 10 3/uLTBHSpecimen (Source)Anatomical Location / LateralityCollection Method / VolumeCollection TimeReceived Time 06/01/2025 8:28 AM EDT06/01/2025 8:29 AM EDT Narrative [facility] - 06/01/2025 8:43 AM EDT Authorizing ProviderResult TypeResult StatusCorey Bethany DOCLINISYNCFinal Result Performing OrganizationAddressCity/State/ZIP CodePhone Number KASIA RAYMNUDO * GLUCOSE 1 HOUR (05/07/2025 7:41 AM EDT)ComponentValueRef RangeTest Method Analysis TimePerformed AtPathologist SignatureGLUCOSE 1 XGGX101<130 mg/dLTBH Specimen (Source)Anatomical Location / LateralityCollection Method / Volume Collection TimeReceived Time05/07/2025 7:41 AM EDT05/07/2025 7:50 AM EDT Narrative [facility] - 05/07/2025 9:26 AM EDT Authorizing ProviderResult TypeResult StatusAmy [place] PALAB BLOOD ORDERABLES Final ResultPerforming OrganizationAddressCity/State/ZIP CodePhone Number KASIA TB * US OB limited 1+ fetuses (05/04/2025 8:47 AM EDT)Anatomical RegionLaterality ModalityBodyUltrasoundSpecimen (Source)Anatomical Location / Laterality Collection Method / VolumeCollection TimeReceived Time05/05/2025 8:01 AM EDT Narrative 05/05/2025 8:01 AM EDT EXAM: US OB LIMITED 1+ FETUSES HISTORY: ??Follow up anatomy. COMPARISON: ??Ob ultrasound 04/06/2025. TECHNIQUE: Two-dimensional transabdominal grayscale ultrasound imaging of the pelvis was performed. FINDINGS: Gestation: Single Presentation: ??Cephalic ?? Cardiac Activity: ??142 beats per minute Placental Location: ??Posterior with uterine synechiae Amniotic Fluid: Appears adequate ANATOMY Four Chamber Heart: Unremarkable LVOT: Unremarkable RVOT: Unremarkable IMPRESSION: 1. Single, live intrauterine gestation 24 weeks, 5 days by LMP. ??VANGIE by LMP is 08/19/2025. 2. Unremarkable four-chamber heart and outflow tracts. 3. Uterine synechiae again identified. Interpreted by: Electronically signed by HEENA BHARDWAJ II, ?? , PHD at 05-May-2025 07:59:10 AM [facility] Procedure Note Heena Bhardwaj MD - [...] signed by HEENA BHARDWAJ II, MD, PHD [id number] 07:59:10 AM [facility] Authorizing ProviderResult TypeResult StatusCorey Bethany DOOLEY OB US PROCEDURES Final Result from Last [address] [place] [address]
--- OUTSIDE RECORDS SUMMARY | 2025-07-17 17:58 | XMS_ITS | Clinical Summary ---
Author Organization Mitch Silva [facility] Address [address], [address] [place] [address] Care Team Providers Care Church Warden Name Role Phone Sbmarcio Sarita Costello APRN - [facility] Primary Care Provider Allergies Active AllergyReactionsCriticalityNoted DateCommentsHydrocortisoneHives 09/23/20221040KwpjiFapavx39/31/3703Xhqebrrx15/28/2024 Medications MedicationSigDispense QuantityRefillsLast FilledStart DateEnd DateStatus Ibeofcns-Isw-Ww-FA (PRE- FORMULA PO) Take by mouthActive Active Problems ProblemNoted DateDiagnosed DateSuspected anomaly not found04/29/2025 Primigravida, second axbfapuoj96/13/661030 weeks gestation of 04/29/2025Uterine ubgeszrfq63/13/2025Estimated Date of DeliveryComments Yes08/19/2025ased on Ultrasound Encounters DateTypeDepartmentCare ZqeyJhfpwtkkjkp47/13/2025 12:[address] [facility] [address] [place] [address] Satish Hernandez MD Suspected anomaly not found (Primary Dx); Primigravida, second trimester; 24 weeks gestation of ; Uterine clkmlnipi66/13/2025bstract [facility] [address] [place] [address] Satish Hernandez MD from Last 3 Months Social History Tobacco UseTypesPacks/DayYears UsedDateSmoking Tobacco: NeverSmokeless Tobacco: Never Tobacco Cessation:Counseling Given: No Alcohol UseStandard Drinks/WeekCommentsNever0 (1 standard drink = 0.6 oz pure alcohol)Interpersonal Safety Domain Source: IP Abuse ScreeningAnswerDate RecordedRead-Only, Retired: Physical FdhhnMptdtz09/31/2023Read-Only, Retired: Verbal YzheiBgymvq01/31/2023Read-Only, Retired: Emotional kpmruBwnjlu10/31/2023 Read-Only, Retired: Financial LhmuiRgbvkq95/31/2023Read-Only, Retired: Sexual qmjiqHksiki21/31/2023Estimated Date of QiuigitbBoptgtxhZxx12/03/2025 Based on UltrasoundSex and Gender InformationValueDate RecordedSex Assigned at BirthNot on fileLegal YryOazeil69/12/2019 9:21 AM EDTGender IdentityNot on file Sexual OrientationNot on file Last Filed Vital Signs Vital SignReadingTime TakenCommentsBlood Lrygbems018/6108 12:58 PM EDT Roien596704/29/2025 12:58 PM SZBMouffhwbdzn37.8 ??C (98.2 ??F)04/29/2025 12:58 PM EDTRespiratory Gpqg014904/29/2025 12:58 PM EDTOxygen Gtmspwcmjd77%09/13/2024 6:17 PM ESTInhaled Oxygen Concentration--Snjenb01.8 kg (186 lb 15.2 oz)04/29/2025 12:58 PM UTRBnubdr254.5 cm (5' 2 )04/29/2025 12:58 PM EDTBody Mass Index34.19 04/29/2025 12:58 PM EDT Plan of Treatment Health MaintenanceDue DateLast DoneCommentsDepression Wbgjmt3112/05/2007Varicella vaccine (1 of 2 - 13+ 2-dose series)12/04/2008HIV qnutbq1912/04/2010Hepatitis C oapxoq7112/04/2013Hepatitis B vaccine (1 of 3 - 19+ 3-dose series)12/04/2014Pap smear12/04/2016Flu vaccine (#1)5COVID-19 Vaccine (1 - 2024-25 season) 2025Tdap Vaccine during Ctouweril31/03/2025Respiratory Syncytial Virus (RSV) or age 60 yrs+ (1 - Risk 1-dose series)06/24/2025 DTaP/Tdap/Td vaccine (3 - Td or Tdap)/03/2023, 02/17/2016HPV vaccine (No Doses Required)CompletedHepatitis A vaccineAged OutNo longer eligible based on patient's age to complete this topicHib vaccineAged OutNo longer eligible based on patient's age to complete this topicMeningococcal (ACWY) vaccineAged OutNo longer eligible based on patient's age to complete this topicMeningococcal B vaccineAged OutNo longer eligible based on patient's age to complete this topicPneumococcal 0-49 years VaccineAged OutNo longer eligible based on patient's age to complete this topicPolio vaccineAged OutNo longer eligible based on patient's age to complete this topic Procedures Procedure NamePriorityDate/TimeAssociated DiagnosisCommentsUS OB DETAIL ANATOMY SINGLE OR FIRST IWHTSWSOYRkddksm37/13/2025 Suspected anomaly not found Primigravida, second trimester 24 weeks gestation of Uterine synechiae from Last 3 Months Results * US OB DETAIL ANATOMY SINGLE OR FIRST GESTATION (04/29/2025)Anatomical RegionLateralityModalityAbdomenOther Narrative Authorizing ProviderResult TypeResult StatusSatish [place] US ORDERABLES Final Result from Last 3 Months Insurance Care Teams Team MemberRelationshipSpecialtyStart DateEnd Date Sarita Bedoya, GENOMICS SCIENTIST - PRIMARY SCHOOL TEACHER LIBRARIAN [address] [place] [address] [facility]16[facility]
--- OUTSIDE RECORDS SUMMARY | 2025-07-17 17:58 | XMS_ITS | Encounter Summary ---
Author Organization [facility] Address [address] [place] [address] Care Team Providers Care Public Health Teacher Name Role Phone Unavailable Primary Care Provider Unavailabl e Encounter Details DateTypeDepartmentCare Team (Latest Contact Info)Xweyknqlciv76/12/2024Clinisync Result Encounter [facility] External Department Unsolicited Sarita Ballard PA [address] [place] [address] Social History Tobacco UseTypesPacks/DayYears UsedDateSmoking Tobacco: Never Assessed CommentsYesSex and Gender InformationValueDate RecordedSex Assigned at BirthNot on fileLegal OpyCcaqkr75/08/2024 12:01 PM ESTGender IdentityNot on fileSexual OrientationNot on filedocumented as of this encounter Plan of Treatment DateTypeDepartmentCare Team (Latest Contact Info)Bnthuhdpdvw92/03/2025 9:50 AM ESTRoutine [facility] [address] [place] [address] Sarita Ballard PA [address] [place] [address] documented as of this encounter Procedures Procedure NamePriorityDate/TimeAssociated DiagnosisCommentsUS OB GROWTH 05/29/2024 9:15 AM EDT documented in this encounter Results * US OB GROWTH (05/29/2024 9:15 AM EDT)Anatomical RegionLateralityModalityOther Specimen (Source)Anatomical Location / LateralityCollection Method / Volume Collection TimeReceived Time05/29/2024 9:15 AM EDT Narrative 05/29/2024 9:18 AM EDT [facility] ?[address] ? [place] [address] ? Ultrasound Report ? Signed ? Patient: MAGERS,YAKELIN P ?MR#: [id number] ?? : 1995 ?Acct:[id number] ?? Age/Sex: 28 / F ?ADM Date: 05/29/24 ?? Loc: US ? Attending Dr: Sarita Ballard ? Ordering Physician: Sarita Ballard ?? Date of Service: 05/29/24 ?? Procedure(s): US OB growth ?? Accession Number(s): [id number] ? cc: Sarita Ballard; Physician,Non-Staff M.D. ? [facility] ? [address] ? [place] [address] ? Patient Name: ?? YAKELIN MELGOZA ? MRN: [facility]:[id number] ? date: 1995 ?Sex: F ?? Assigned Patient Location: US ?? Current Patient Location: US ?? Accession/Order Number: [id number] ?? Exam Date: 05/29/2024 ??08:30 ?Report Date: 05/29/2024 ??09:15 ? At the request of: ?? SARITA ??ELIO ? Procedure: ??US OB growth ? EXAMINATION: US OB growth ? HISTORY: Size Inconsistent With Dates O26.849 ? COMPARISON: 04/29/2024 ? FINDINGS: ? Heart Rate: 136.36 bpm ?? Amniotic Fluid Volume: 15.4 cm, largest fluid pocket 5.5 cm ?? Number: 1 ?? Position: Cephalic presentation, longitudinal lie ? BIOMETRY: ?? BPD: 9.26 cm; 37 weeks 4 days; 89.50 % ?? HC: 34.50 cm; 39 weeks 6 days; 94 % ?? AC: 31.65 cm; 35 weeks 4 days; 40.20 % ?? FL: 6.93 cm; 35 weeks 4 days; 27.70 % ?? EFW: 2885.93 g; 51.20 %, 6 lbs. 6 oz. ?? FL/AC: 21.90 ?? FL/BPD: 74.84 ?? HC/AC: 1.09 ? GESTATIONAL AGE: ?? Age by EDC: 36 weeks 2 days ?? VANGIE by EDC: 2024-06-24 ?? Age by US: 37 weeks 1 day ?? VANGIE by US: 2024-06-18 ? US/US OB growth ?? IMPRESSION: ? Normal interval growth ? Electronically authenticated by: FRANKIE ??MADHAVI ?? Date: 05/29/2024 ??09:15 ? Dictated By: ?Frankie Hendrickson M.D. ? Signed By: ?05/29/24 09 ? DD/ 0915 ? TD/TT: ? Linter Tender: Procedure Note Radiology, Radiologist, MD - 05/29/2024 [place] [address] Ultrasound Report Signed Patient: YAKELIN MELGOZA PMR#: [id number] : 1995Acct:[id number] Age/Sex: 28 FADM Date: 05/29/24 Loc: US Attending Dr: Sarita Ballard Ordering Physician: Sarita Ballard Date of Service: 05/29/24 Procedure(s): US OB growth Accession Number(s): [id number] cc: Sarita Ballard; Physician,Non-Staff M.D. The [place] [id number] Patient Name: YAKELIN MELGOZA MRN: [facility]:[id number] date: 1995 Sex: F Assigned Patient Location: US Current Patient Location: US Accession/Order Number: [id number] Exam Date: 05/29/2024 08:30 Report Date: 05/29/2024 [...] Hendrickson M.D. Signed By:05/29/24917 DD/ 4 TD/TT: Linter Tender: Authorizing ProviderResult TypeResult StatusAmy Elio PACLINISYNC IMAGINGFinal Result documented in this encounter Visit Diagnoses Not on filedocumented in this encounter
--- OUTSIDE RECORDS SUMMARY | 2025-07-17 17:58 | XMS_ITS | Encounter Summary ---
Author Organization [facility] Address [address] [place] [address] Care Team Providers Care Box Spring Maker Name Role Phone Unavailable Primary Care Provider Unavailabl e Encounter Details DateTypeDepartmentCare Team (Latest Contact Info)Gyjsczcudjr86/07/2024linisync Result Encounter [facility] External Department Unsolicited Monico Sims [address] [place], [place] [id number] Social History Tobacco UseTypesPacks/DayYears UsedDateSmoking Tobacco: Never Assessed CommentsYesSex and Gender InformationValueDate RecordedSex Assigned at BirthNot on fileLegal PlmYfevmy10/08/2024 12:01 PM ESTGender IdentityNot on fileSexual OrientationNot on filedocumented as of this encounter Plan of Treatment DateTypeDepartmentCare Team (Latest Contact Info)Xbboxcfqxvk19/03/2025 9:50 AM ESTRoutine [facility] [address] [place] [address] Sarita Mcnair PA [address] [facility] [facility] [place] [address] documented as of this encounter Procedures Procedure NamePriorityDate/TimeAssociated DiagnosisCommentsUS OB CERVICAL LENGTH 01/22/2024 10:58 AM EDT documented in this encounter Results * US OB CERVICAL LENGTH (01/22/2024 10:58 AM EDT)Anatomical RegionLaterality ModalityOtherSpecimen (Source)Anatomical Location / LateralityCollection Method / VolumeCollection TimeReceived Time01/22/2024 10:58 AM EDT Narrative 01/22/2024 11:00 AM EDT [facility] ?[address] ? [place] [address] ? Ultrasound Report ? Signed ? Patient: MAGERS,SANGEETHA P ?MR#: [id number] ?? : 1995 ?Acct:[id number] ?? Age/Sex: 28 / F ?ADM Date: 01/22/24 ?? Loc: US ? Attending Dr: Monico Sims D.O. ? Ordering Physician: Monico Sims D.O. ?? Date of Service: 01/22/24 ?? Procedure(s): US OB cervical length ?? Accession Number(s): [id number] ? cc: Monico Sims D.O.; Physician,Non-Staff M.D. ? [facility] ? [address] ? [place] [address] ? Patient Name: ?? SANGEETHA P RHONA ? MRN: [facility]:[id number] ? date: 1995 ?Sex: F ?? Assigned Patient Location: US ?? Current Patient Location: US ?? Accession/Order Number: [id number] ?? Exam Date: 01/22/2024 ??09:50 ?Report Date: 01/22/2024 ??10:58 ? At the request of: ?? MONICO ??BETHANY ? Procedure: ??US OB cervical length ? EXAMINATION: US OB anatomy, US OB [...] ?? VANGIE by current US: 06/25/2024 ? US/US OB cervical length ?? IMPRESSION: ? 1. Single live intrauterine with growth detailed above. ?? 2. Estimated weight is 6th percentile. Head circumference is < 3rd percentile. ? Electronically authenticated by: SAMUEL ??DAVID ?? Date: 01/22/2024 ??10:58 ? Dictated By: ?Samuel Aj M.D. ? Signed By: ?01/22/24 1100 ? DD/ 1058 ? TD/TT: ? Ms Sql Developer: Procedure Note Radiology, Radiologist, - 01/22/2024 [place] [address] Ultrasound Report Signed Patient: SANGEETHA MELGOZA PMR#: [id number] : 1995Acct:[id number] Age/Sex: 28 / FADM Date: 01/22/24 Loc: US Attending Dr: Monico Sims D.O. Ordering Physician: Monico Sims D.O. Date of Service: 01/22/24 Procedure(s): US OB cervical length Accession Number(s): [id number] cc: Monico Sims D.O.; Physician,Non-Staff M.DRina The [address] [address] Patient Name: SANGEETHA MELGOZA MRN: [facility]:[id number] date: 1995 Sex: F Assigned Patient Location: US Current Patient Location: US Accession/Order Number: [id number] Exam Date: 01/22/2024 09:50 Report Date: 01/22/2024 10:58 At the request of: MONICO SIMS Procedure: US OB cervical length EXAMINATION: [...] is < 3rd percentile. Electronically authenticated by: SAMUEL AJ Date: 01/22/2024 10:58 Dictated By: Samuel Aj M.D. Signed By:01/22/24 1100 DD/ 1058 TD/TT: Ms Sql Developer: Authorizing ProviderResult TypeResult StatusCorey Bethany DOCLINISYNC IMAGINGFinal Result documented in this encounter Visit Diagnoses Not on filedocumented in this encounter
--- OUTSIDE RECORDS SUMMARY | 2025-07-17 17:58 | XMS_ITS | Encounter Summary ---
Author Organization [facility] Address [address] [place] [place] [address] Care Team Providers Care Clinical Scientist Name Role Phone Unavailable Primary Care Provider Unavailabl e Encounter Details DateTypeDepartmentCare Team (Latest Contact Info)Phlzcxjbofo44/13/2024Clinisync Result Encounter [facility] External Department Unsolicited Sarita Ballard PA [address] [place], [place] [phone] Social History Tobacco UseTypesPacks/DayYears UsedDateSmoking Tobacco: Never Assessed CommentsYesSex and Gender InformationValueDate RecordedSex Assigned at BirthNot on fileLegal DriSypkbr50/08/2024 12:01 PM ESTGender IdentityNot on fileSexual OrientationNot on filedocumented as of this encounter Plan of Treatment DateTypeDepartmentCare Team (Latest Contact Info)Zlczecgrbal22/03/2025 9:50 AM ESTRoutine [facility] [address] [place] [address] Sarita Ballard PA [address] [place] [address] documented as of this encounter Procedures Procedure NamePriorityDate/TimeAssociated DiagnosisCommentsUS OB GROWTH 04/29/2024 12:45 PM EDT documented in this encounter Results * US OB GROWTH (04/29/2024 12:45 PM EDT)Anatomical RegionLateralityModalityOther Specimen (Source)Anatomical Location / LateralityCollection Method / Volume Collection TimeReceived Time04/29/2024 12:45 PM EDT Narrative 04/29/2024 12:47 PM EDT [facility] ?[address] ? [place] [address] ? Ultrasound Report ? Signed ? Patient: MAGERS,YAKEILN P ?MR#: [id number] ?? : 1995 ?Acct:[id number] ?? Age/Sex: 28 / F ?ADM Date: 04/29/24 ?? Loc: [facility] ? Attending Dr: Sarita Ballard ? Ordering Physician: Sarita Ballard ?? Date of Service: 04/29/24 ?? Procedure(s): US OB growth ?? Accession Number(s): [id number] ? cc: Sarita Ballard; Physician,Non-Staff M.D. ? [facility] ? [address] ? [place] [address] ? Patient Name: ?? YAKELIN MELGOZA ? MRN: [facility]:[id number] ? date: 1995 ?Sex: F ?? Assigned Patient Location: [facility] ?? Current Patient Location: [facility] ?? Accession/Order Number: [id number] ?? Exam Date: 04/29/2024 ??11:30 ?Report Date: 04/29/2024 ??12:45 ? At the request of: ?? SARITA ??ELIO ? Procedure: ??US OB growth ? EXAMINATION: US OB growth ? HISTORY: SIZE INCONSISTENT WITH DATES ? COMPARISON: No relevant comparison available. ? FINDINGS: ? Heart Rate: 135 bpm ?? Amniotic Fluid Volume: 18.3 cm. Largest fluid pocket 6.5 cm ?? Number: 1 ?? Position: Cephalic presentation, longitudinal lie ? BIOMETRY: ?? BPD: 8.28 cm; 33 weeks 2 days; 78.70 % ?? HC: 30.75 cm; 34 weeks 2 days; 74.50 % ?? AC: 29.08 cm; 33 weeks 1 day; 79 % ?? FL: 6.40 cm; 33 weeks 0 days; 66.50 % ?? EFW: 2159.86 g; 78.10 %, 4 lbs. 12 oz. ?? FL/AC: 22.01 ?? FL/BPD: 77.29 ?? HC/AC: 1.06 ? GESTATIONAL AGE: ?? Age by EDC: 32 weeks 0 days ?? VANGIE by EDC: 2024-06-24 ?? Age by US: 33 weeks 3 days ?? VANGIE by US: 2024-06-14 ? US/US OB growth ?? IMPRESSION: ? Normal interval growth ? Electronically authenticated by: FRANKIE ??MADHAVI ?? Date: 04/29/2024 ??12:45 ? Dictated By: ?Frankie Hendrickson M.D. ? Signed By: ?04/29/24 1247 ? DD/ 1245 ? TD/TT: ? Cutting And Printing Machine Operator: Procedure Note Radiology, Radiologist, - 04/29/2024 [place] [address] Ultrasound Report Signed Patient: YAKELIN MELGOZA PMR#: [id number] : 1995Acct:[id number] Age/Sex: 28 / FADM Date: 04/29/24 Loc: [facility] Attending Dr: Sarita Ballard Ordering Physician: Sarita Ballard Date of Service: 04/29/24 Procedure(s): US OB growth Accession Number(s): [id number] cc: Sarita Ballard; Physician,Non-Staff M.DRina The [place] [id number] Patient Name: YAKELIN MELGOZA MRN: [id number] date: 1995 Sex: F Assigned Patient Location: [facility] Current Patient Location: [facility] Accession/Order Number: [id number] Exam Date: 04/29/2024 11:30 Report Date: 04/29/2024 [...] M.D. Signed By:04/29/24 1247 DD/ 1245 TD/TT: Cutting And Printing Machine Operator: Authorizing ProviderResult TypeResult StatusAmy ElioSt. James Hospital and Clinic IMAGINGFinal Result documented in this encounter Visit Diagnoses Not on filedocumented in this encounter
--- OUTSIDE RECORDS SUMMARY | 2025-07-17 17:59 | XMS_ITS ---
Author Organization [facility] Source Produ ction (ClinicalSummary Clone) Address Unknown Care Team Providers Care Lotus Notes Developer Name Role Phone Unavailable Primary Care Physician Unavailab le Results * [UNITY] ANEUPLOIDY NIPT Performed by: [employer] Component Value Range Date Fraction 7.8% 03/09/2025 07:04 pm UTCRh(D) NIPTRhD BXBNHXKB30/23/2025 07:04 pm UTCSex Chromosome AneuploidyNOT RDAJQJTH72/23/2025 07:04 pm UTCMonosomy XLOW RISK <1 in , 07:04 pm UTCTrisomy 13LOW RISK <1 in , 07:04 pm UTCTrisomy 18LOW RISK <1 in , 07:04 pm UTCTrisomy 21LOW RISK <1 in 10, 07:04 pm UTCFetal WanDEJQ5103/09/2025 07:04 pm UTCPregnancy DfjcfwnjiDHSVSMNFB56/23/2025 07:04 pm UTCFor detailed report, see PDFSee PDF 03/09/2025 07:04 pm UTC03/09/2025 07:04 pm UTC Social History Observation Value Start Date End Date
--- OUTSIDE RECORDS SUMMARY | 2025-07-17 17:59 | XMS_ITS | Encounter Summary ---
Author Organization [facility] Address [address] [place] [address] Care Team Providers Care Aircraft Powerplant Repairer Name Role Phone Unavailable Primary Care Provider Unavailabl e Encounter Details DateTypeDepartmentCare Team (Latest Contact Info)Cydybrdukdp23/28/2024Clinisync Result Encounter [facility] External Department Unsolicited Monico Sims [address] [place], [place] [phone] Social History Tobacco UseTypesPacks/DayYears UsedDateSmoking Tobacco: Never Assessed CommentsYesSex and Gender InformationValueDate RecordedSex Assigned at BirthNot on fileLegal PnfNfahur18/08/2024 12:01 PM ESTGender IdentityNot on fileSexual OrientationNot on filedocumented as of this encounter Plan of Treatment DateTypeDepartmentCare Team (Latest Contact Info)Vuzbmybmnvx36/03/2025 9:50 AM ESTRoutine [facility] [address] [place] [address] Sarita Mcnair PA [address] [place] [address] documented as of this encounter Procedures Procedure NamePriorityDate/TimeAssociated DiagnosisCommentsUS OB TRANSVAGINAL 12/13/2023 1:43 PM EDT documented in this encounter Results * US OB TRANSVAGINAL (12/13/2023 1:43 PM EDT)Anatomical RegionLateralityModality OtherSpecimen (Source)Anatomical Location / LateralityCollection Method / VolumeCollection TimeReceived Time12/13/2023 1:43 PM EDT Narrative 12/13/2023 1:45 PM EDT [facility] ?[address] ? [place] [address] ? Ultrasound Report ? Signed ? Patient: Magers,Sangeetha P ?MR#: [id number] ?? : 1995 ?Acct:[id number] ?? Age/Sex: 28 / F ?ADM Date: 03 ?? Loc: [facility] ? Attending Dr: Monico Sims D.O. ? Ordering Physician: Monico Sims D.O. ?? Date of Service: 12/13/23 ?? Procedure(s): US OB transvaginal ?? Accession Number(s): [id number] ? cc: AMMARIONE; Monico Sims D.O. ? [facility] ? [address] ? [place] [address] ? Patient Name: ?? SANGEETHA P RHONA ? MRN: [facility]:[id number] ? date: 1995 ?Sex: F ?? Assigned Patient Location: [facility] ?? Current Patient Location: [facility] ?? Accession/Order Number: [id number] ?? Exam Date: 12/13/2023 ??12:33 ?Report Date: 12/13/2023 ??13:43 ? At the request of: ?? MONICO ??BETHANY ? Procedure: ??US OB transvaginal ? EXAMINATION: US OB transvaginal ? HISTORY: MISSED MENSES ? COMPARISON: No relevant comparison available. ? FINDINGS: ? Transvaginal images ? Hill intrauterine gestation ?? Gestational sac: 5.25 cm, 11 weeks 1 day ?? CRL: 5.72 cm, 12 weeks 2 days ?? Yolk sac: 4.3 mm ?? Heart rate: 150 beats minute ? Cervix: Closed, 4.4 cm ? The uterus is normal, anteverted, anteflexed ? The right ovary is normal measuring 2.0 x 1.1 x 1.5 cm ? Left ovary is normal measuring 3.2 x 2.3 x 2.4 cm ? Clinical age: Unknown ?? Ultrasound age: 12 weeks 2 days ?? Ultrasound VANGIE: 06/24/2024 ? US/US OB transvaginal ?? IMPRESSION: ? Viable hill intrauterine gestation measuring 12 weeks 2 days ? Electronically authenticated by: FRANKIE ??MADHAVI ?? Date: 12/13/2023 ??13:43 ? Dictated By: ?Frankie Hendrickson M.D. ? Signed By: ?12/13/23 1345 ? DD/DT: 12/12/ 1343 ? TD/TT: ? Motor Adjuster: Procedure Note Radiology, Radiologist, - 12/13/2023 [place] [address] Ultrasound Report Signed Patient: Sangeetha Melgoza PMR#: [id number] : 1995Acct:[id number] Age/Sex: Date: 12/13/23 [facility] Attending Dr: Monico Sims D.O. Ordering Physician: Monico Sims D.O. Date of Service: 12/13/23 Procedure(s): US OB transvaginal Accession Number(s): [id number] cc: Monico Mcleod D.O. The [place] [address] Patient Name: SANGEETHA MELGOZA MRN: [facility]:[id number] date: 1995 Sex: F Assigned Patient Location: [facility] Current Patient Location: [facility] Accession/Order Number: [id number] Exam Date: 12/13/2023 12:33 Report Date: 12/13/2023 13:43 At the request of: MONICO SMIS Procedure: US OB transvaginal EXAMINATION: US OB [...] M.D. Signed By:12/13/23 1345 DD/ 1343 TD/TT: Motor Adjuster: Authorizing ProviderResult TypeResult StatusCorey Bethany DOCLINISYNC IMAGINGFinal Result documented in this encounter Visit Diagnoses Not on filedocumented in this encounter
--- OUTSIDE RECORDS SUMMARY | 2025-07-17 17:59 | XMS_ITS | Clinical Summary ---
Author Organization [facility] tem Address [id number] [address] [place] [address] Care Team Providers Care Applications Support Lead Name Role Phone Sarita Bedoya APRN-WOOL HAT SANDING MACHINE OPERATOR Primary Care Provider + Allergies Active AllergyReactionsCriticalityNoted DateCommentsHydrocortisoneHives 09/23/20229312DxsinOywpw90/07/2023 Medications MedicationSigDispense QuantityRefillsLast FilledStart DateEnd DateStatus multivit-min/ferrous fumarate (MULTI VITAMIN ORAL) Take 1 tablet by mouth daily.Active vits62/FA/om3/dha/epa ( GUMMY ORAL) Take by mouth.Active Active Problems No known active problems Immunizations ImmunizationAdministration DatesNext SvkJpss1309/23/2022 Family History Medical HistoryRelationNameCommentsDiabetesFatherHeart attackMaternal GrandfatherHypertensionMaternal GrandmotherHypertensionMotherHeart attack Paternal GrandfatherRelationNameStatusCommentsFatherMaternal GrandfatherMaternal GrandmotherMotherPaternal Grandfather Social History Tobacco UseTypesPacks/DayYears UsedDateSmoking Tobacco: NeverSmokeless Tobacco: Never Tobacco Cessation:Counseling Given: Not Answered Alcohol UseStandard Drinks/WeekCommentsNot Currently0 (1 standard drink = 0.6 oz pure alcohol)Hunger ScreeningAnswerDate RecordedWithin the past 12 months we worried whether our food would run out before we got money to buy more.Never True09/23/2022Within the past 12 months the food we bought just didn't last and we didn't have money to get more.Never True09/23/2022CommentsNoSex and Gender InformationValueDate RecordedSex Assigned at BirthNot on fileLegal Sex Cqvoqd6204/07/2021 1:18 PM EDTGender IdentityNot on fileSexual OrientationNot on file Last Filed Vital Signs Vital SignReadingTime TakenCommentsBlood Myfzennf425/8609/25/2023 1:12 PM EST Wprhj614209/23/2022 1:47 PM TATCzveexuyhoj44.2 ??C (98.9 ??F)09/23/2022 1:47 PM ESTRespiratory Wgcx897709/23/2022 1:47 PM ESTOxygen Xlbcqncqeb46%09/23/2022 1:47 PM ESTInhaled Oxygen Concentration--Juyuev01.2 kg (157 lb)09/25/2023 1:12 PM EST Mmjylq629.5 cm (5' 2 )09/25/2023 1:12 PM ESTBody Mass Index28.72009/25/2023 1:12 PM EST Plan of Treatment Health MaintenanceDue DateLast DoneCommentsDepression Ielfwggta38/20/2008Pap Smear12/04/2016Adult BMI Qpvnvsild13/09/605111/05/2024Tobacco Screening /05/2024Influenza Jzfwdif8305/18/2025DTaP,Tdap and Td Vaccines (3 - Td or Tdap)/03/2023, 02/17/2016 Medical Devices Not on file Insurance * Guarantor: Sangeetha Villarreal AntoninaLilliamvalerianobunny TypeRelation to PatientDate of PhoneBilling AddressWorkers GeyzMmic69/20/[address] [address] Care Teams Team MemberRelationshipSpecialtyStart DateEnd Date Sarita Bedoya, SUPERVISOR TYPE DISK QUALITY CONTROL-WOOL HAT SANDING MACHINE OPERATOR [address] [facility], [address] [address] PCP - GeneralNurse Practitioner05/05/21
--- OUTSIDE RECORDS SUMMARY | 2025-07-17 17:59 | XMS_ITS | Encounter Summary ---
Author Organization [facility] Address [address] [place] [address] Care Team Providers Care Opener Name Role Phone Unavailable Primary Care Provider Unavailabl e Encounter Details DateTypeDepartmentCare Team (Latest Contact Info)Qobdsxkomxw87/27/2025Bamboo flowsheet ANALIA AVILES [address] [place] [address] Bridger Sims DO [address] [facility] [address] [place], [facility] [address] Social History Tobacco UseTypesPacks/DayYears UsedDateSmoking Tobacco: Never Assessed Estimated Date of DdkpdiqzGggitqaeAwb38/03/2025Based on UltrasoundSex and Gender InformationValueDate RecordedSex Assigned at BirthNot on fileLegal SexFemale 10/25/2023 12:01 PM ESTGender IdentityNot on fileSexual OrientationNot on file documented as of this encounter Plan of Treatment DateTypeDepartmentCare Team (Latest Contact Info)Ullloorjkxe29/03/2025 9:50 AM ESTRoutine NOM[facility]ome AVILES [address] [place] [address] Sarita Mcnair PA [address] [facility] [place] [address] documented as of this encounter Visit Diagnoses Not on filedocumented in this encounter
[2025-07-17 18:08] VITALS: BP 119/75; PULSE 88
== END 2025-07-17 18:53 | disposition home or self-care (01) ==
PROVIDERS: Admitting Provider Obstetrics & Gynecology; Visit Provider Obstetrics & Gynecology
DX: O99.891 Other specified diseases and conditions complicating pregnancy (principal); R10.30 Lower abdominal pain, unspecified; Z3A.35 35 weeks gestation of pregnancy
CPT/HCPCS: G0378; G0379

== ENCOUNTER 2025-07-20 11:57 | Outpatient (REF) | payer OTHER, SELFPAY ==
--- OUTSIDE RECORDS SUMMARY | 2025-07-13 08:30 | XMS_ITS | Encounter Summary ---
Author Organization [facility] Address [address] [place] [address] Care Team Providers Care Correction Worker Name Role Phone Unavailable Primary Care Provider Unavailabl e Reason for Visit * ReasonCommentsRoutine Visit Encounter Details DateTypeDepartmentCare Team (Latest Contact Info)Jljoggzcofn71/27/2025 9:30 AM EDTRoutine [facility] [address] [facility] [place] [address] Bridger Sims DO [address] [facility] [address] [place], [place] [phone] Third trimester ([facility]); 34 weeks gestation of ([facility]) Social History Tobacco UseTypesPacks/DayYears UsedDateSmoking Tobacco: Never Assessed Estimated Date of IeiwqlpjHbwwsrghJgx96/03/[birth year]25Based on UltrasoundSex and Gender InformationValueDate RecordedSex Assigned at BirthNot on fileLegal SexFemale 10/25/2023 12:01 PM ESTGender IdentityNot on fileSexual OrientationNot on file documented as of this encounter Last Filed Vital Signs Vital SignReadingTime TakenCommentsBlood Dxinkfbk625/8807/13/2025 9:24 AM EDT Pulse--Temperature--Respiratory Rate--Oxygen Saturation--Inhaled Oxygen Concentration--Mskczr75 kg (194 lb)07/13/2025 9:24 AM EDTHeight--Body Mass Index 35.48002/13/2025 10:16 AM EDTdocumented in this encounter Progress Notes * Laquita Little NP - 07/13/2025 9:30 AM EDT Reason for Appointment: Patient ID: Sangeetha Villarreal is a 29 y.o. female who presents for Routine Visit Patient presents today for Return OB appointment. MEDICATIONS Current Outpatient Medications Medication Instructions Vit-Fe Fumarate-FA ( VITAMIN PO) Take by mouth ALLERGIES Allergies Allergen Reactions Latex Hives Hydrocortisone Hives Morphine Cortisone Rash PROBLEMS Active Ambulatory Problems Diagnosis Date Noted Missed menses 12/11/2023 15 weeks gestation of ([facility]) 03/03/2025 Second trimester fetus ([facility]) 03/03/2025 Resolved Ambulatory Problems Diagnosis Date [...] nursing note reviewed. Exam conducted with a conference planning manager present. Vitals: Estimated body mass index is 35.48 kg/m?? as calculated from the following: Height as of 02/13/25: 5' 2 . Weight as of this encounter: 194 lb. BP: 134/88 Patient's last menstrual period was 11/12/2024. Assessment/Plan ICD-10-CM 1. Third trimester ([facility]) Z34.93 2. 34 weeks gestation of ([facility]) Z3A.34 POCT urinalysis dipstick manually resulted Return OB: Patient presents today for a routine obstetrics appointment. Patient is currently 34w5d . Patient states she is doing well [...] week for routine OB appointment. Documented by Laquita Little NP on behalf of: Bridger Sims DO documented in this encounter Plan of Treatment DateTypeDepartmentCare Team (Latest Contact Info)Gfccenuayhb47/10/2025 8:50 AM ESTRoutine [facility] [address] [facility] [place] [address] Sarita Mcnair PA [address] [facility] [place] [address] documented as of this encounter Procedures Procedure NamePriorityDate/TimeAssociated DiagnosisCommentsPOCT URINALYSIS QSCUBMGZXyejpbe89/27/2025 9:32 AM EDT 34 weeks gestation of ([facility]) documented in this encounter Results * (ABNORMAL) POCT urinalysis dipstick manually resulted (07/13/2025 9:32 AM EDT) ComponentValueRef RangeTest MethodAnalysis TimePerformed AtPathologist SignatureColor, UAYellowClarity, UAClearGlucose, UANegativeNegative - 2000(110) ++++ mg/dLBilirubin, UANegativeNegative - 4(70) +++ mg/dLKetones, UA NegativeNegative - 160(16) ++++ mg/dLSpec Grav, UA1.0201 - 1.03Blood, UA NegativeNegative - 50 Haseeb/mcLpH, UA6.05 - 9Protein, UATraceNegative - 2000(20) ++++ mg/dLUrobilinogen, UA2.00.2 - 12 mg/dLLeukocytes, UANegativeNegative - 500+++ Ronaldo/mcLNitrite, UANegativeNegative - PositiveSpecimen (Source) Anatomical Location / LateralityCollection Method / VolumeCollection Time Received NeccUyyaz53/27/2025 9:32 AM EDT Narrative Authorizing ProviderResult TypeResult StatusCorey Bethany DOPOINT OF CARE TEST ENTER/EDIT ORDERABLESFinal Result documented in this encounter Visit Diagnoses Diagnosis Third trimester ([facility]) state, incidental 34 weeks gestation of ([facility]) documented in this encounter
--- OUTSIDE RECORDS SUMMARY | 2025-07-20 09:50 | XMS_ITS | Encounter Summary ---
Author Organization [facility] Address [address] [place] [address] Care Team Providers Care Bankruptcy Attorney Name Role Phone Unavailable Primary Care Provider Unavailabl e Reason for Visit * ReasonCommentsRoutine Visit Encounter Details DateTypeDepartmentCare Team (Latest Contact Info)Qoxvixeozkd59/03/2025 9:50 AM ESTRoutine [facility] [address] [place] [phone] Sarita Mcnair PA [address] [facility] [address] [place], [facility] Third trimester ([facility]); 35 weeks gestation of ([facility]); Screening examination for STI Social History Tobacco UseTypesPacks/DayYears UsedDateSmoking Tobacco: Never Assessed Estimated Date of XiqfbcurJzzlmplyPxf86/03/2025ased on UltrasoundSex and Gender InformationValueDate RecordedSex Assigned at BirthNot on fileLegal SexFemale 10/25/2023 12:01 PM ESTGender IdentityNot on fileSexual OrientationNot on file documented as of this encounter Last Filed Vital Signs Vital SignReadingTime TakenCommentsBlood Lqemwsnf777/7007/20/2025 10:08 AM EST Pulse--Temperature--Respiratory Rate--Oxygen Saturation--Inhaled Oxygen Concentration--Qrxmho34.4 kg (197 lb)07/20/2025 10:08 AM ESTHeight--Body Mass Index36.03002/13/2025 10:16 AM EDTdocumented in this encounter Progress Notes * PARDEEP Joaquin - 07/20/2025 9:50 AM EST Reason for Appointment: Patient ID: Sangeetha Villarreal is a 29 y.o. female who presents for Routine Visit Patient presents today for Return OB appointment. MEDICATIONS Current Outpatient Medications Medication Instructions Vit-Fe Fumarate-FA ( VITAMIN PO) Take by mouth ALLERGIES Allergies Allergen Reactions Latex Hives Hydrocortisone Hives Morphine Cortisone Rash PROBLEMS Active Ambulatory Problems Diagnosis Date Noted Missed menses 12/11/2023 15 weeks gestation of ([facility]) 03/03/2025 Second trimester fetus ([facility]) 03/03/2025 Resolved Ambulatory Problems Diagnosis Date Noted [...] SYSTEMS Review of Systems: Review of Systems All other systems reviewed and are negative. OBJECTIVE Objective: Physical Exam Constitutional: Appearance: Normal appearance. Genitourinary: Right Adnexa: not tender and no mass present. Left Adnexa: not tender and no mass present. No cervical discharge. Breasts: Breasts are soft. Right: Normal. Left: Normal. HENT: Head: Normocephalic. Nose: Nose normal. Mouth/Throat: Mouth: Mucous membranes are moist. Cardiovascular: Rate and Rhythm: Normal rate. Pulmonary: Effort: Pulmonary effort is normal. Abdominal: General: Bowel sounds are normal. Palpations: Abdomen is soft. Musculoskeletal: General: Normal range of motion. Cervical back: Normal range of motion. Neurological: General: No focal deficit present. Mental Status: She is alert. Skin: General: Skin is warm and dry. Psychiatric: Mood and Affect: Mood normal. Vitals and nursing note reviewed. Exam conducted with a ad operations coordinator present. Vitals: Estimated body mass index is 35.48 kg/m?? as calculated from the following: Height as of 02/13/25: 5' 2 . Weight as of 07/13/25: 194 lb. BP: Patient's last menstrual period was 11/12/2024. Assessment/Plan ICD-10-CM 1. Third trimester ([facility]) Z34.93 2. 35 weeks gestation of ([facility]) Z3A.35 3. Screening examination for STI Z11.3 Patient is doing well but has complaints of being tired and having maternal discomfort due to . Patient verbalized frequent movement and was instructed to perform kick counts three times per day. labor precautions were given, LARC consent was signed/and declined the LARC. GBS/CX's were obtained at today's visit. Cervical check was performed and patient is 1cm dilated. Patient is doing well but has complaints of being tired and having maternal discomfort due to . Orders Placed This Encounter Procedures CHLAMYDIA TRACHOMATIS (GENITO/STI) Neisseria gonorrhea DNA probe, direct CULTURE, GROUP B STREP WITH SUSCEPTIBLITY POCT urinalysis dipstick manually resulted Follow Up: Patient is to return to office in 1 week for routine OB appointment No orders of the defined types were placed in this encounter. Follow Up: Patient is to return to office in 1 week for routine OB appointment Documented by Cydney Vitale MA on behalf of: PARDEEP Joaquin documented in this encounter Plan of Treatment DateTypeDepartmentCare Team (Latest Contact Info)Qgsbxqnbfel87/10/2025 8:50 AM ESTRoutine [facility] [address] [place] [phone] Sarita Mcnair PA [address] [place] [address] NameTypePriorityAssociated DiagnosesOrder ScheduleSURESWAB(R) ADVANCED VAGINITIS PLUS, TMAPathology and CytologyRoutine Screening examination for STI Ordered: 07/20/2025HLAMYDIA TRACHOMATIS (GENITO/STI)LabRoutine Screening examination for STI Ordered: 07/20/2025Neisseria gonorrhea DNA probe, directLabRoutine Screening examination for STI Ordered: 07/20/2025ULTURE, GROUP B STREP WITH SUSCEPTIBLITYLabRoutine Third trimester ([facility]) Expected: 07/20/2025, Expires: 07/20/2026documented as of this encounter Procedures Procedure NamePriorityDate/TimeAssociated DiagnosisCommentsPOCT URINALYSIS OZJKEFVGKwlqrgs94/03/2025 10:21 AM EST Third trimester ([facility]) documented in this encounter Results * (ABNORMAL) POCT urinalysis dipstick manually resulted (07/20/2025 10:21 AM EST)ComponentValueRef RangeTest MethodAnalysis TimePerformed AtPathologist SignatureColor, UAYellowClarity, UAClearGlucose, UANegativeNegative - 2000(110) ++++ mg/dLBilirubin, UANegativeNegative - 4(70) +++ mg/dLKetones, UA NegativeNegative - 160(16) ++++ mg/dLSpec Grav, UA1.0101 - 1.03Blood, UA NegativeNegative - 50 Haseeb/mcLpH, UA6.05 - 9Protein, UA1+Negative - 2000(20) ++++ mg/dLUrobilinogen, UA1.00.2 - 12 mg/dLLeukocytes, UANegativeNegative - 500+++ Ronaldo/mcLNitrite, UANegativeNegative - PositiveSpecimen (Source) Anatomical Location / LateralityCollection Method / VolumeCollection Time Received PekgFmfco15/03/2025 10:21 AM EST Narrative Authorizing ProviderResult TypeResult StatusSarita Mcnair [facility] TEST ENTER/EDIT ORDERABLESFinal Result documented in this encounter Visit Diagnoses Diagnosis Third trimester ([facility]) state, incidental 35 weeks gestation of ([facility]) Screening examination for STI documented in this encounter
--- OUTSIDE RECORDS SUMMARY | 2025-07-20 12:02 | XMS_ITS | Encounter Summary ---
Author Organization [facility] Address [address] [place] [address] Care Team Providers Care Immunochemist Name Role Phone Unavailable Primary Care Provider Unavailabl e Encounter Details DateTypeDepartmentCare Team (Latest Contact Info)Hnfmxovmaae14/13/2024Clinisync Result Encounter [facility] External Department Unsolicited Sarita Ballard PA [address] [place], [place] [phone] Social History Tobacco UseTypesPacks/DayYears UsedDateSmoking Tobacco: Never Assessed CommentsYesSex and Gender InformationValueDate RecordedSex Assigned at BirthNot on fileLegal QetWwbqxl36/08/2024 12:01 PM ESTGender IdentityNot on fileSexual OrientationNot on filedocumented as of this encounter Plan of Treatment DateTypeDepartmentCare Team (Latest Contact Info)Cvkfjpnsqvi02/10/2025 8:50 AM ESTRoutine [facility] [address] [address] Sarita Ballard PA [address] [facility] [place] [address] documented as of this encounter Procedures Procedure NamePriorityDate/TimeAssociated DiagnosisCommentsUS OB GROWTH 04/29/2024 12:45 PM EDT documented in this encounter Results * US OB GROWTH (04/29/2024 12:45 PM EDT)Anatomical RegionLateralityModalityOther Specimen (Source)Anatomical Location / LateralityCollection Method / Volume Collection TimeReceived Time04/29/2024 12:45 PM EDT Narrative 04/29/2024 12:47 PM EDT [facility] ?[address] ? [place] [address] ? Ultrasound Report ? Signed ? Patient: MAGERS,YAKELIN P ?MR#: [id number] ?? : 1995 ?Acct:[id number] ?? Age/Sex: 28 / F ?ADM Date: 04/29/24 ?? Loc: [facility] ? Attending Dr: Sarita Ballard ? Ordering Physician: Sarita Ballard ?? Date of Service: 04/29/24 ?? Procedure(s): US OB growth ?? Accession Number(s): [id number] ? cc: Sarita Ballard; Physician,Non-Staff M.D. ? [facility] ? [address] ? [place] [address] ? Patient Name: ?? YAKELIN MELGOZA ? MRN: [facility]:[id number] ? date: 1995 ?Sex: F ?? Assigned Patient Location: [facility] ?? Current Patient Location: [facility] ?? Accession/Order Number: [id number] ?? Exam Date: 04/29/2024 ??11:30 ?Report Date: [...] 1247 ? DD/ 1245 ? TD/TT: ? Cruller Maker Machine: Procedure Note Radiology, Radiologist, - 04/29/2024 [place] [address] Ultrasound Report Signed Patient: YAKELIN MELGOZA PMR#: [id number] : 1995Acct:[id number] Age/Sex: 28 / FADM Date: 04/29/24 Loc: [facility] Attending Dr: Sarita Ballard Ordering Physician: Sarita Ballard Date of Service: 04/29/24 Procedure(s): US OB growth Accession Number(s): [id number] cc: Sarita Ballard; Physician,Non-Staff M.DRina [place] [id number] Patient Name: YAKELIN MELGOZA MRN: [facility]:[id number] date: 1995 Sex: F Assigned Patient Location: [facility] Current Patient Location: [facility] Accession/Order Number: [id number] Exam Date: 04/29/2024 11:30 Report Date: 04/29/2024 [...] M.D. Signed By:04/29/24 1247 DD/ 1245 TD/TT: Cruller Maker Machine: Authorizing ProviderResult TypeResult StatusAmy [facility] IMAGINGFinal Result documented in this encounter Visit Diagnoses Not on filedocumented in this encounter
--- OUTSIDE RECORDS SUMMARY | 2025-07-20 12:02 | XMS_ITS | Clinical Summary ---
Author Organization [facility] Address [address] [place] [address] Care Team Providers Care Transmitter Chief Name Role Phone Unavailable Primary Care Provider Unavailabl e Allergies Active AllergyReactionsCriticalityNoted DxpuFftrqcqxFmhcwkmwyJkcjXox63/30/2024 YxynfduvdogepkXybib78/07/2998CbpxsSdwhmFzdhvk15/07/4821Wbhtxkux69/28/2024 Medications MedicationSigDispense QuantityRefillsLast FilledStart DateEnd DateStatus Vit-Fe Fumarate-FA ( VITAMIN PO) Indications:Missed menses,, unspecified gestational age ([facility])Take by mouthActive Active Problems ProblemNoted DateDiagnosed Date15 weeks gestation of ([facility]) 03/03/2025Second trimester fetus ([facility])03/03/2025Missed urlxnz8712/11/2023 Estimated Date of FjpyumepQpaowdsmPfj80/03/2025ased on Ultrasound Encounters DateTypeDepartmentCare QlidQbthtanbwgu19/03/2025 9:50 [place] [address] Sarita Mcnair PA Third trimester ([facility]); 35 weeks gestation of ([facility]); Screening examination for STI07/20/20[place] [address] Sarita Mcnair PA 07/13/2025 9:30 [place] [address] Bridger Sims, DO Third trimester ([facility]); 34 weeks gestation of ([facility])07/13/2025amboo flowsheet [facility] [place] [address] [place] [address] Bridger Sims DO 06/30/2025 9:30 AM EDTRoutine [facility] [address] [place] [address] Sarita Mcnair PA Third trimester ([facility]); 32 weeks gestation of ([facility])06/30/2025 9:00 AM EDTAncillary Procedure [facility] [place] [facility] [facility] [address] [place] [address] Third trimester ([facility]); Uterine kybjoqcbf99/30/2025Abstract [facility] [address] [place] [address] Rosana Montague MA 06/15/2025 8:50 AM EDTRoutine [facility] [address] [place] [address] Laquita Little NP 30 weeks gestation of ([facility]); Third trimester ([facility]); Uterine synechiae; Low iron06/15/2025Telephone [facility] [address] [place] [address] Cher Llamas LPN 06/15/2025amboo flowsheet [facility] [place] [facility] [address] [place] [address] aLquita Little NP 5Clinisync Result Encounter [facility] External Department Unsolicited Bridger Sims DO 06/04/2025Telephone [facility] [place] [facility] [address] [place] [address] Eliz VitalelNAPAKIAK, MA 06/01/2025 10:20 AM EDTRoutine [facility] [address] [place] [phone] Bridger Sims, 28 weeks gestation of ([facility]); Third trimester ([facility])06/01/2025 9:30 AM EDTAncillary Procedure [facility] [address] [place] [address] Uterine izuiqjgbh20/15/2025Clinisync Result Encounter [facility] External Department Unsolicited Bridger Sims, DO 05/12/2025Telephone [facility] [address] [place] [address] Bridger Sims, DO 05/07/2025Telephone [facility] [address] [place] [address] Vitale Cydney, [place] 5Clinisync Result Encounter [facility] External Department Unsolicited Sarita Mcnair PA 05/04/2025 9:20 AM EDTRoutine [facility] [address] [place] [address] Sarita Mcnair, PA 24 weeks gestation of ([facility]); Second trimester ([facility]); Diabetes mellitus /18/2025 8:30 AM EDTAncillary Procedure [facility] [address] [place] [phone] Encounter for follow-up ultrasound of anatomy ([facility])04/29/2025bstract [facility] [address] [place] [address] Bridger Sims, 04/29/2025bstract [facility] [address] [place] [address] Sarita Mcnair PA from Last 3 Months Family History Medical HistoryRelationNameCommentsSeizuresFatherRelationNameStatusComments Father Social History Tobacco UseTypesPacks/DayYears UsedDateSmoking Tobacco: Never Assessed Estimated Date of RzneaqibOwcddikfRyw72/03/2025Based on UltrasoundSex and Gender InformationValueDate RecordedSex Assigned at BirthNot on fileLegal SexFemale 10/25/2023 12:01 PM ESTGender IdentityNot on fileSexual OrientationNot on file Last Filed Vital Signs Vital SignReadingTime TakenCommentsBlood Lmgujtdd257/7007/20/2025 10:08 AM EST Pulse--Temperature--Respiratory Rate--Oxygen Saturation--Inhaled Oxygen Concentration--Kocmbe75.4 kg (197 lb)07/20/2025 10:08 AM MTWMzfaft069.5 cm (5' 2 )02/13/2025 10:16 AM EDTBody Mass Index36.03002/13/2025 10:16 AM EDT Plan of Treatment DateTypeDepartmentCare Team (Latest Contact Info)Kbixtdfufbb79/10/2025 8:50 AM ESTRoutine [facility] [address] [place] [address] Sarita Mcnair PA [address] [place] [address] Procedures Procedure NamePriorityDate/TimeAssociated DiagnosisCommentsPOCT URINALYSIS RPXDKFUTBbgamgn90/03/2025 10:21 AM EST Third trimester ([facility]) POCT URINALYSIS ELZKUPPWMqmqaxw49/27/2025 9:32 AM EDT 34 weeks gestation of ([facility]) POCT URINALYSIS JUVPKRDBYmvyjsm25/14/2025 9:51 AM EDT Third trimester ([facility]) US OB FOLLOW UP TRANSABDOMINAL ORKGINLIRwwaxnq68/14/2025 9:38 AM EDT Third trimester ([facility]) Uterine synechiae POCT URINALYSIS DVLYIQURUrwwaif72/29/2025 8:49 AM EDT 30 weeks gestation of ([facility]) Third trimester ([facility]) CUZZPNSWRKZLuvakpf82/19/2025 8:26 AM EDT [facility] GEXHDEMBDrqxbxs45/19/2025 8:26 AM EDT POCT URINALYSIS KTYDBGSSGrvthyx79/15/2025 10:34 AM EDT 28 weeks gestation of ([facility]) Third trimester ([facility]) US OB FOLLOW UP TRANSABDOMINAL BOPYGDMPKppmxnm12/15/2025 10:01 AM EDT Uterine synechiae ALL CBC WITH AUTO JJLJHagutkc42/15/2025 8:28 AM EDT GLUCOSE 1 WDXMNudkaza13/21/2025 7:41 AM EDT ALL CBC WITH AUTO KMYKTgmromg55/21/2025 7:41 AM EDT POCT URINALYSIS LCQGVGMFZmepjio16/18/2025 9:03 AM EDT 24 weeks gestation of ([facility]) Second trimester ([facility]) US OB LIMITED 1+ DONBGBOEjhtajl69/18/2025 8:47 AM EDT Encounter for follow-up ultrasound of anatomy ([facility]) from Last 3 Months Results * (ABNORMAL) POCT urinalysis dipstick manually resulted (07/20/2025 10:21 AM EST) Only the most recent of6 resultswithin the time period is included. ComponentValueRef RangeTest MethodAnalysis TimePerformed AtPathologist Signature Color, UAYellowClarity, UAClearGlucose, UANegativeNegative - 2000(110) ++++ mg/dLBilirubin, UANegativeNegative - 4(70) +++ mg/dLKetones, UANegativeNegative - 160(16) ++++ mg/dLSpec Grav, UA1.0101 - 1.03Blood, UANegativeNegative - 50 Haseeb/mcLpH, UA6.05 - 9Protein, UA1+Negative - 2000(20) ++++ mg/dLUrobilinogen, UA 1.00.2 - 12 mg/dLLeukocytes, UANegativeNegative - 500+++ Ronaldo/mcLNitrite, UA NegativeNegative - PositiveSpecimen (Source)Anatomical Location / Laterality Collection Method / VolumeCollection TimeReceived KrdtPvpct13/03/2025 10:21 AM EST Narrative Authorizing ProviderResult TypeResult StatusAmy [facility] TEST ENTER/EDIT ORDERABLESFinal Result * US OB [...] Pedro Luis Packer MD Authorizing ProviderResult TypeResult StatusKrrayshawn Anabel NPIMG OB US PROCEDURESFinal Result * (ABNORMAL) TRANSFERRIN (06/05/2025 8:26 AM EDT)ComponentValueRef RangeTest MethodAnalysis TimePerformed AtPathologist NusstjlktXOXGKQWUXSI983(A)192 - 364 mg/dLTBHComment: Performed at: ?? - [facility] [address] ??[id number] Bulk Driver: Romulo Yoon PhD, Phone: ??[phone] Specimen (Source)Anatomical Location / LateralityCollection Method / Volume Collection TimeReceived Time06/05/2025 8:26 AM EDT06/05/2025 8:29 AM EDT Narrative [facility] - 06/06/2025 4:16 AM EDT Authorizing ProviderResult TypeResult StatusCorey Bethany DOLAB BLOOD ORDERABLES Final ResultPerforming OrganizationAddressty/State/ZIP CodePhone Number [facility] * (ABNORMAL) [facility] FERRITIN (06/05/2025 8:26 AM EDT)ComponentValueRef RangeTest MethodAnalysis TimePerformed AtPathologist SignatureFERRITIN5.0(L)8.0 - 252.0 ng/mLTBHSpecimen (Source)Anatomical Location / LateralityCollection Method / VolumeCollection TimeReceived Time06/05/2025 8:26 AM EDT06/05/2025 8:29 AM EDT Narrative [facility] - 06/05/2025 9:57 AM EDT Authorizing ProviderResult TypeResult StatusCorey Bethany DOCLINISYNCFinal Result Performing OrganizationAddressCity/State/ZIP CodePhone Number [facility] * (ABNORMAL) ALL CBC WITH AUTO DIFF [...] - 35.2 g/dLTBHTBH RDW13.911.0 - 15.0 %TBHTBH ALT778251 - 450 10 3/uLTBHTBH MPV10.29.5 - 13.5 [...] 8:28 AM EDT06/01/2025 8:29 AM EDT Narrative [facility] - 06/01/2025 8:43 AM EDT Authorizing ProviderResult TypeResult StatusCorey Bethany DOCLINISYNCFinal Result Performing OrganizationAddressCity/State/ZIP CodePhone Number [facility] * GLUCOSE 1 HOUR (05/07/2025 7:41 AM EDT)ComponentValueRef RangeTest Method Analysis TimePerformed AtPathologist SignatureGLUCOSE 1 ZRLI452<130 mg/dLTBH Specimen (Source)Anatomical Location / LateralityCollection Method / Volume Collection TimeReceived Time05/07/2025 7:41 AM EDT05/07/2025 7:50 AM EDT Narrative [facility] - 05/07/2025 9:26 AM EDT Authorizing ProviderResult TypeResult StatusAmy Xu [place] BLOOD ORDERABLES Final ResultPerforming OrganizationAddressCity/State/ZIP CodePhone Number [facility] * US OB limited 1+ fetuses (05/04/2025 [...] ?? , PHD at 05-May-2025 07:59:10 AM [facility] Procedure Note Heena Bhardwaj MD - [...] signed by HEENA BHARDWAJ II, MD, PHD [id number] 07:59:10 AM [facility] Authorizing ProviderResult TypeResult StatusCorey Bethany DOIMG OB US PROCEDURES Final Result from Last [address] [place] [address]
--- OUTSIDE RECORDS SUMMARY | 2025-07-20 12:02 | XMS_ITS | Encounter Summary ---
Author Organization [facility] Address [address] [place] [address] Care Team Providers Care Wedding Planning Internship Name Role Phone Unavailable Primary Care Provider Unavailabl e Encounter Details DateTypeDepartmentCare Team (Latest Contact Info)Vwmyoudjkjz83/03/2025amboo flowsheet ANALIA AVILES [address] [place] [address] Sarita Mcnair PA [address] [place] [address] Social History Tobacco UseTypesPacks/DayYears UsedDateSmoking Tobacco: Never Assessed Estimated Date of VyawrcwhUbfpdeehLmo00/03/2025Based on UltrasoundSex and Gender InformationValueDate RecordedSex Assigned at BirthNot on fileLegal SexFemale 10/25/2023 12:01 PM ESTGender IdentityNot on fileSexual OrientationNot on file documented as of this encounter Plan of Treatment DateTypeDepartmentCare Team (Latest Contact Info)Iwltmhrymrr30/10/2025 8:50 AM ESTRoutine [facility] [address] [place] [address] Sarita Mcnair PA [address] [place] [address] documented as of this encounter Visit Diagnoses Not on filedocumented in this encounter
--- OUTSIDE RECORDS SUMMARY | 2025-07-20 12:02 | XMS_ITS | Encounter Summary ---
Author Organization [facility] Address [address] [place] [address] Care Team Providers Care Reroller Hand Name Role Phone Unavailable Primary Care Provider Unavailabl e Encounter Details DateTypeDepartmentCare Team (Latest Contact Info)Pdvkimvwrqy45/27/2025Bamboo flowsheet ANALIA AVILES [address] [address] Bridger Sims DO [address] Kellie Longoria, [facility] Social History Tobacco UseTypesPacks/DayYears UsedDateSmoking Tobacco: Never Assessed Estimated Date of ChuhvweoQxuvtfeqDuu53/03/2025Based on UltrasoundSex and Gender InformationValueDate RecordedSex Assigned at BirthNot on fileLegal SexFemale 10/25/2023 12:01 PM ESTGender IdentityNot on fileSexual OrientationNot on file documented as of this encounter Plan of Treatment DateTypeDepartmentCare Team (Latest Contact Info)Lhieszbpnzp00/10/2025 8:50 AM ESTRoutine [facility] [address] [address] Sarita Mcnair PA [address] [place] [address] documented as of this encounter Visit Diagnoses Not on filedocumented in this encounter
--- OUTSIDE RECORDS SUMMARY | 2025-07-20 12:02 | XMS_ITS | Encounter Summary ---
Author Organization [facility] Address [address] [place] [address] Care Team Providers Care Gynecologist Name Role Phone Unavailable Primary Care Provider Unavailabl e Encounter Details DateTypeDepartmentCare Team (Latest Contact Info)Zxyszueleus71/07/2024linisync Result Encounter [facility] External Department Unsolicited Monico Sims [address] [place], [place] [id number] Social History Tobacco UseTypesPacks/DayYears UsedDateSmoking Tobacco: Never Assessed CommentsYesSex and Gender InformationValueDate RecordedSex Assigned at BirthNot on fileLegal MtcRwoygw40/08/2024 12:01 PM ESTGender IdentityNot on fileSexual OrientationNot on filedocumented as of this encounter Plan of Treatment DateTypeDepartmentCare Team (Latest Contact Info)Yvfhmoekmbv54/10/2025 8:50 AM ESTRoutine [facility] [address] [place] [address] Sarita Mcnair PA [address] [place] [address] documented as of this encounter Procedures Procedure NamePriorityDate/TimeAssociated DiagnosisCommentsUS OB CERVICAL LENGTH 01/22/2024 10:58 AM EDT documented in this encounter Results * US OB CERVICAL LENGTH (01/22/2024 10:58 AM EDT)Anatomical RegionLaterality ModalityOtherSpecimen (Source)Anatomical Location / LateralityCollection Method / VolumeCollection TimeReceived Time01/22/2024 10:58 AM EDT Narrative 01/22/2024 11:00 AM EDT [facility] ?[address] ? [place] [address] ? Ultrasound Report ? Signed ? Patient: MAGERS,SANGEETHA P ?MR#: [id number] ?? : 1995 ?Acct:[id number] ?? Age/Sex: 28 / F ?ADM Date: 01/22/24 ?? Loc: US ? Attending Dr: Monico Sims D.O. ? Ordering Physician: Monico Sims D.O. ?? Date of Service: 01/22/24 ?? Procedure(s): US OB cervical length ?? Accession Number(s): [id number] ? cc: Monico Sims D.O.; Physician,Non-Staff M.D. ? [facility] ? [address] ? [place] [address] ? Patient Name: ?? SANGEETHA P RHONA ? MRN: [facility]:[id number] ? date: 1995 ?Sex: F ?? Assigned Patient Location: US ?? Current Patient Location: US ?? Accession/Order Number: [id number] ?? Exam Date: 01/22/2024 ??09:50 ?Report Date: [...] 1100 ? DD/ 1058 ? TD/TT: ? Vacuum Closing Machine Operator: Procedure Note Radiology, Radiologist, - 01/22/2024 [place] [address] Ultrasound Report Signed Patient: SANGEETHA MELGOZA PMR#: [id number] : 1995Acct:[id number] Age/Sex: 28 / FADM Date: 01/22/24 Loc: US Attending Dr: Monico Sims D.O. Ordering Physician: Monico Sims D.O. Date of Service: 01/22/24 Procedure(s): US OB cervical length Accession Number(s): [id number] cc: Monico Sims D.O.; Physician,Non-Staff M.DRina The [address] [address] Patient Name: SANGEETHA MELGOZA MRN: [facility]:[id number] date: 1995 Sex: F Assigned Patient Location: US Current Patient Location: US Accession/Order Number: [id number] Exam Date: 01/22/2024 09:50 Report Date: 01/22/2024 [...] M.D. Signed By:01/22/24 1100 DD/ 1058 TD/TT: Vacuum Closing Machine Operator: Authorizing ProviderResult TypeResult StatusCorey Bethany DOCLINISYNC IMAGINGFinal Result documented in this encounter Visit Diagnoses Not on filedocumented in this encounter
--- OUTSIDE RECORDS SUMMARY | 2025-07-20 12:02 | XMS_ITS | Encounter Summary ---
Author Organization [facility] Address [address] [place] [address] Care Team Providers Care Dairy Inspector Name Role Phone Unavailable Primary Care Provider Unavailabl e Encounter Details DateTypeDepartmentCare Team (Latest Contact Info)Xmmtbegbeam16/07/2024linisync Result Encounter [facility] External Department Unsolicited Bridger Sims [address] [place], [place] [phone] Social History Tobacco UseTypesPacks/DayYears UsedDateSmoking Tobacco: Never Assessed CommentsYesSex and Gender InformationValueDate RecordedSex Assigned at BirthNot on fileLegal JfaFzvzcj56/08/2024 12:01 PM ESTGender IdentityNot on fileSexual OrientationNot on filedocumented as of this encounter Plan of Treatment DateTypeDepartmentCare Team (Latest Contact Info)Rumpisuojhd34/10/2025 8:50 AM ESTRoutine [facility] [address] [place] [address] Sarita Mcnair PA [address] [place] [address] documented as of this encounter Procedures Procedure NamePriorityDate/TimeAssociated DiagnosisCommentsUS OB ANATOMY 01/22/2024 10:58 AM EDT documented in this encounter Results * US OB ANATOMY (01/22/2024 10:58 AM EDT)Anatomical RegionLateralityModality OtherSpecimen (Source)Anatomical Location / LateralityCollection Method / VolumeCollection TimeReceived Time01/22/2024 10:58 AM EDT Narrative 01/22/2024 11:00 AM EDT The [facility] ?[address] ? [place] [address] ? Ultrasound Report ? Signed ? Patient: MAGERS,YAKELIN P ?MR#: [id number] ?? : 1995 ?Acct:[id number] ?? Age/Sex: 28 / F ?ADM Date: 01/22/24 ?? Loc: US ? Attending Dr: Bridger Sims D.O. ? Ordering Physician: Bridger Sims D.O. ?? Date of Service: 01/22/24 ?? Procedure(s): US OB anatomy ?? Accession Number(s): [id number] ? cc: Bridger Sims D.O.; Physician,Non-Staff M.D. ? [facility] ? [address] ? [place] [address] ? Patient Name: ?? YAKELIN MELGOZA ? MRN: [facility]:[id number] ? date: 1995 ?Sex: F ?? Assigned Patient Location: US ?? Current Patient Location: US ?? Accession/Order Number: [id number] ?? Exam Date: 01/22/2024 ??09:50 ?Report Date: [...] 1100 ? DD/ 1058 ? TD/TT: ? Editorial Manager: Procedure Note Radiology, Radiologist, - 01/22/2024 [place] [address] Ultrasound Report Signed Patient: YAKELIN MELGOZA PMR#: [id number] : 1995Acct:[id number] Age/Sex: 28 / FADM Date: 01/22/24 Loc: US Attending Dr: Bridger Sims D.O. Ordering Physician: Bridger Sims D.O. Date of Service: 01/22/24 Procedure(s): US OB anatomy Accession Number(s): [id number] cc: Bridger Sims D.O.; Physician,Non-Staff M.DRina The [address] [address] Patient Name: YAKELIN MELGOZA MRN: [facility]:[id number] date: 1995 Sex: F Assigned Patient Location: US Current Patient Location: US Accession/Order Number: [id number] Exam Date: 01/22/2024 09:50 Report Date: 01/22/2024 [...] M.D. Signed By:01/22/24 1100 DD/ 1058 TD/TT: Editorial Manager: Authorizing ProviderResult TypeResult StatusCorey Bethany DOCLINISYNC IMAGINGFinal Result documented in this encounter Visit Diagnoses Not on filedocumented in this encounter
--- OUTSIDE RECORDS SUMMARY | 2025-07-20 12:02 | XMS_ITS | Encounter Summary ---
Author Organization [facility] Address [address] [place] [address] Care Team Providers Care Synchronizer Name Role Phone Unavailable Primary Care Provider Unavailabl e Encounter Details DateTypeDepartmentCare Team (Latest Contact Info)Phpdbtupaus23/12/2024Clinisync Result Encounter [facility] External Department Unsolicited Sarita Ballard PA [address] [place] [address] Social History Tobacco UseTypesPacks/DayYears UsedDateSmoking Tobacco: Never Assessed CommentsYesSex and Gender InformationValueDate RecordedSex Assigned at BirthNot on fileLegal DtfFvqzec64/08/2024 12:01 PM ESTGender IdentityNot on fileSexual OrientationNot on filedocumented as of this encounter Plan of Treatment DateTypeDepartmentCare Team (Latest Contact Info)Wmdinyjzljg96/10/2025 8:50 AM ESTRoutine [facility] [address] [address] Sarita Ballard PA [address] [facility] [address] [facility] [place] [address] documented as of this encounter Procedures Procedure NamePriorityDate/TimeAssociated DiagnosisCommentsUS OB GROWTH 05/29/2024 9:15 AM EDT documented in this encounter Results * US OB GROWTH (05/29/2024 9:15 AM EDT)Anatomical RegionLateralityModalityOther Specimen (Source)Anatomical Location / LateralityCollection Method / Volume Collection TimeReceived Time05/29/2024 9:15 AM EDT Narrative 05/29/2024 9:18 AM EDT The [facility] ?[address] ? [place] [address] ? Ultrasound Report ? Signed ? Patient: MAGERS,YAKELIN P ?MR#: [id number] ?? : 1995 ?Acct:[id number] ?? Age/Sex: 28 / F ?ADM Date: 05/29/24 ?? Loc: US ? Attending Dr: Sarita Ballard ? Ordering Physician: Sarita Ballard ?? Date of Service: 05/29/24 ?? Procedure(s): US OB growth ?? Accession Number(s): [id number] ? cc: Sarita Ballard; Physician,Non-Staff M.D. ? The [facility] ? [address] ? [place] [address] ? Patient Name: ?? YAKELIN MELGOZA ? MRN: [facility]:[id number] ? date: 1995 ?Sex: F ?? Assigned Patient Location: US ?? Current Patient Location: US ?? Accession/Order Number: [id number] ?? Exam Date: 05/29/2024 ??08:30 ?Report Date: [...] 09 ? DD/ 0915 ? TD/TT: ? Trauma Surgeon: Procedure Note Radiology, Radiologist, MD - 05/29/2024 [place] [address] Ultrasound Report Signed Patient: YAKELIN MELGOZA PMR#: [id number] : 1995Acct:[id number] Age/Sex: 28 FADM Date: 05/29/24 Loc: US Attending Dr: Sarita Ballard Ordering Physician: Sarita Ballard Date of Service: 05/29/24 Procedure(s): US OB growth Accession Number(s): [id number] cc: Sarita Ballard; Physician,Non-Staff M.D. The [place] [id number] Patient Name: YAKELIN MELGOZA MRN: [facility]:[id number] date: 1995 Sex: F Assigned Patient Location: US Current Patient Location: US Accession/Order Number: [id number] Exam Date: 05/29/2024 08:30 Report Date: 05/29/2024 [...] Hendrickson M.D. Signed By:05/29/24917 DD/ 4 TD/TT: Trauma Surgeon: Authorizing ProviderResult TypeResult StatusAmy Elio PACLINISYNC IMAGINGFinal Result documented in this encounter Visit Diagnoses Not on filedocumented in this encounter
--- OUTSIDE RECORDS SUMMARY | 2025-07-20 12:02 | XMS_ITS | Encounter Summary ---
Author Organization [facility] Address [address] [place] [address] Care Team Providers Care Enterprise Systems Engineer Name Role Phone Unavailable Primary Care Provider Unavailabl e Encounter Details DateTypeDepartmentCare Team (Latest Contact Info)Bynqvjqmerh45/28/2024Clinisync Result Encounter [facility] External Department Unsolicited Monico Sims [address] [place], [place] [address] Social History Tobacco UseTypesPacks/DayYears UsedDateSmoking Tobacco: Never Assessed CommentsYesSex and Gender InformationValueDate RecordedSex Assigned at BirthNot on fileLegal NlsRltqxk18/08/2024 12:01 PM ESTGender IdentityNot on fileSexual OrientationNot on filedocumented as of this encounter Plan of Treatment DateTypeDepartmentCare Team (Latest Contact Info)Dcbamyygbbh04/10/2025 8:50 AM ESTRoutine [facility] [address] [facility] [place] [address] Sraita Mcnair PA [address] [place] [address] documented as of this encounter Procedures Procedure NamePriorityDate/TimeAssociated DiagnosisCommentsUS OB TRANSVAGINAL 12/13/2023 1:43 PM EDT documented in this encounter Results * US OB TRANSVAGINAL (12/13/2023 1:43 PM EDT)Anatomical RegionLateralityModality OtherSpecimen (Source)Anatomical Location / LateralityCollection Method / VolumeCollection TimeReceived Time12/13/2023 1:43 PM EDT Narrative 12/13/2023 1:45 PM EDT The [facility] ?[address] ? [place] [address] ? Ultrasound Report ? Signed ? Patient: Magers,Sangeetha P ?MR#: [id number] ?? : 1995 ?Acct:[id number] ?? Age/Sex: 28 / F ?ADM Date: 03 ?? Loc: [facility] ? Attending Dr: Monico Sims D.O. ? Ordering Physician: Monico Sims D.O. ?? Date of Service: 12/13/23 ?? Procedure(s): US OB transvaginal ?? Accession Number(s): [id number] ? cc: AMMARIONE; Monico Sims D.O. ? [facility] ? [address] ? [place] [address] ? Patient Name: ?? SANGEETHA P RHONA ? MRN: [facility]:[id number] ? date: 1995 ?Sex: F ?? Assigned Patient Location: [facility] ?? Current Patient Location: [facility] ?? Accession/Order Number: [id number] ?? Exam Date: 12/13/2023 ??12:33 ?Report Date: [...] ? DD/DT: 12/12/ 1343 ? TD/TT: ? District Representative: Procedure Note Radiology, Radiologist, - 12/13/2023 [place] [address] Ultrasound Report Signed Patient: Sangeetha Melgoza PMR#: [id number] : 1995Acct:[id number] Age/Sex: Date: 12/13/23 Loc: [facility] Attending Dr: Monico Sims D.O. Ordering Physician: Monico Sims D.O. Date of Service: 12/13/23 Procedure(s): US OB transvaginal Accession Number(s): [id number] cc: Monico Mcleod D.O. The [place] [address] Patient Name: SANGEETHA MELGOZA MRN: [id number]:[id number] date: 1995 Sex: F Assigned Patient Location: [facility] Current Patient Location: [facility] Accession/Order Number: [id number] Exam Date: 12/13/2023 12:33 Report Date: 12/13/2023 13:43 At the request of: MONICO SIMS Procedure: US OB transvaginal EXAMINATION: US [...] M.D. Signed By:12/13/23 1345 DD/ 1343 TD/TT: District Representative: Authorizing ProviderResult TypeResult StatusCorey Bethany DOCLINISYNC IMAGINGFinal Result documented in this encounter Visit Diagnoses Not on filedocumented in this encounter
--- OUTSIDE RECORDS SUMMARY | 2025-07-20 12:02 | XMS_ITS | Clinical Summary ---
Author Organization [employer] [facility] tem Address [id number] [place] [address] Care Team Providers Care Machine Grinder Name Role Phone Sarita Bedoya APRN-WARDROBE ASSISTANT Primary Care Provider + Allergies Active AllergyReactionsCriticalityNoted DateCommentsHydrocortisoneHives 09/23/20222094CtxxhJciht17/07/2023 Medications MedicationSigDispense QuantityRefillsLast FilledStart DateEnd DateStatus multivit-min/ferrous fumarate (MULTI VITAMIN ORAL) Take 1 tablet by mouth daily.Active vits62/FA/om3/dha/epa ( GUMMY ORAL) Take by mouth.Active Active Problems No known active problems Immunizations ImmunizationAdministration DatesNext KugPbqz0709/23/2022 Family History Medical HistoryRelationNameCommentsDiabetesFatherHeart attackMaternal GrandfatherHypertensionMaternal GrandmotherHypertensionMotherHeart [...] RecordedSex Assigned at BirthNot on fileLegal Sex Bivlko9104/07/2021 1:18 PM EDTGender IdentityNot on fileSexual OrientationNot on file Last Filed Vital Signs Vital SignReadingTime TakenCommentsBlood Ijucpzfk518/8609/25/2023 1:12 PM EST Nlwmz264809/23/2022 1:47 PM VMZJhyqevzuvzl70.2 ??C (98.9 ??F)09/23/2022 1:47 PM ESTRespiratory Mzhx328009/23/2022 1:47 PM ESTOxygen Nllzocjvlk65%09/23/2022 1:47 PM ESTInhaled Oxygen Concentration--Uxicvk46.2 kg (157 lb)09/25/2023 1:12 PM EST Yeadxm580.5 cm (5' 2 )09/25/2023 1:12 PM ESTBody Mass Index28.72009/25/2023 1:12 PM EST Plan of Treatment Health MaintenanceDue DateLast DoneCommentsDepression Lwmxojyen29/20/2008Pap Smear12/04/2016Adult BMI Kalqtmqpg45/09/624857/05/2024Tobacco Screening /05/2024Influenza Niflglx8605/18/2025DTaP,Tdap and Td Vaccines (3 - Td or Tdap)/03/2023, 02/17/2016 Medical Devices Not on file Insurance * Guarantor: Sangeetha Villarreal AntoninaLilliamvalerianobunny TypeRelation to PatientDate of PhoneBilling AddressWorkers CbwjVugu06/20/[address] [address] Care Teams Team MemberRelationshipSpecialtyStart DateEnd Date Sarita Bedoya, ELECTRONIC ENGINEERING DRAFTSPERSON-WARDROBE ASSISTANT [address] [facility], [address] [address] PCP - GeneralNurse Practitioner05/05/21
--- OUTSIDE RECORDS SUMMARY | 2025-07-20 12:02 | XMS_ITS | Clinical Summary ---
Author Organization [facility] Address [address], [address] [place] [address] Care Team Providers Care Pharmacovigilance Scientist Name Role Phone Sbmarcio Sarita Costello APRN - [facility] Primary Care Provider Allergies Active AllergyReactionsCriticalityNoted DateCommentsHydrocortisoneHives 09/23/20226773TrfzhCnurey55/31/9548Roxnfugp01/28/2024 Medications MedicationSigDispense QuantityRefillsLast FilledStart DateEnd DateStatus Dicplsqh-Ojm-Fc-FA (PRE- FORMULA PO) Take by mouthActive Active Problems ProblemNoted DateDiagnosed DateSuspected anomaly not found04/29/2025 Primigravida, second vqodneaed54/13/179565 weeks gestation of 04/29/2025Uterine pphdyofiy45/13/2025Estimated Date of DeliveryComments Yes08/19/2025ased on Ultrasound Encounters DateTypeDepartmentCare MwymZtacxguwnfh47/13/2025 12:[address] [facility] [address] [facility] [address] [place] [address] Satish Hernandez MD Suspected anomaly not found (Primary Dx); Primigravida, second trimester; 24 weeks gestation of ; Uterine ocbneawie72/13/2025bstract [facility] [address] [place] [address] Satish Hernandez MD from Last 3 Months Social History Tobacco UseTypesPacks/DayYears UsedDateSmoking Tobacco: NeverSmokeless Tobacco: Never Tobacco Cessation:Counseling Given: No Alcohol UseStandard Drinks/WeekCommentsNever0 (1 standard drink = 0.6 oz pure alcohol)Interpersonal Safety Domain Source: IP Abuse ScreeningAnswerDate RecordedRead-Only, Retired: Physical YjgdnMcnnyp76/31/2023Read-Only, Retired: Verbal OhnokXrqxac48/31/2023Read-Only, Retired: Emotional kvioyKemlxi01/31/2023 Read-Only, Retired: Financial DxfeqRlkiub57/31/2023Read-Only, Retired: Sexual nzjmxSxhwqa57/31/2023Estimated Date of NwdahafsYmfhslcmSaz68/03/2025 Based on UltrasoundSex and Gender InformationValueDate RecordedSex Assigned at BirthNot on fileLegal CfkOflkej28/12/2019 9:21 AM EDTGender IdentityNot on file Sexual OrientationNot on file Last Filed Vital Signs Vital SignReadingTime TakenCommentsBlood Ondnezwl897/6108 12:58 PM EDT Vynbi158104/29/2025 12:58 PM HNEFtzwspmcntu34.8 ??C (98.2 ??F)04/29/2025 12:58 PM EDTRespiratory Uiti667404/29/2025 12:58 PM EDTOxygen Gpvbfjoswj04%09/13/2024 6:17 PM ESTInhaled Oxygen Concentration--Rlfevq00.8 kg (186 lb 15.2 oz)04/29/2025 12:58 PM REXDfejuh866.5 cm (5' 2 )04/29/2025 12:58 PM EDTBody Mass Index34.19 04/29/2025 12:58 PM EDT Plan of Treatment Health MaintenanceDue DateLast DoneCommentsDepression Gagzec5912/05/2007Varicella vaccine (1 of 2 - 13+ 2-dose series)12/04/2008HIV ipjixo0812/04/2010Hepatitis C rltaca7212/04/2013Hepatitis B vaccine (1 of 3 - 19+ 3-dose series)12/04/2014Pap smear12/04/2016Flu vaccine (#1)5COVID-19 Vaccine (1 - 2024-25 season) 2025Tdap Vaccine during Wuwpovgqo44/03/2025Respiratory Syncytial Virus (RSV) or age 60 yrs+ [...] DiagnosisCommentsUS OB DETAIL ANATOMY SINGLE OR FIRST ZXCECAAAFSojnhxn06/13/2025 Suspected anomaly not found Primigravida, second trimester 24 weeks gestation of Uterine synechiae from Last 3 Months Results * US OB DETAIL ANATOMY SINGLE OR FIRST GESTATION (04/29/2025)Anatomical RegionLateralityModalityAbdomenOther Narrative Authorizing ProviderResult TypeResult StatusSatish [place] US ORDERABLES Final Result from Last 3 Months Insurance Care Teams Team MemberRelationshipSpecialtyStart DateEnd Date Sarita Bedoya, WRAPPER REWINDER - CHEMICAL COMPOUNDER HELPER [address] [place] [address] [facility] - [facility] Clinical Nurse Specialist04/16/23
== END 2025-07-20 11:58 | disposition home or self-care (01) ==
LOC: LAB 11:57
PROVIDERS: Visit Provider Physician Assistant
DX: Z34.93 Encounter for supervision of normal pregnancy, unspecified, third trimester (principal); Z3A.35 35 weeks gestation of pregnancy
CPT/HCPCS: 87081

== ENCOUNTER 2025-08-04 23:51 | Inpatient (IN) | payer OTHER, SELFPAY ==
--- OUTSIDE RECORDS SUMMARY | 2025-08-04 23:55 | XMS_ITS | CCD ---
Author Organization [facility] Care Team Providers Care Medical Assistant Ob Gyn Name Role Phone Lobo Upton Erickson Unavailable UnavailRAMONA Singleton Admitting Unavailable RAMONA JIMÉNEZ [...] Admitting Unavailable RAMONA JIMÉNEZ Attending Unavailable RAMONA JMIÉNEZ Consulting Unavailable RAMONA JIMÉNEZ Admitting Unavailable RAMONA [...] Consulting Unavailable RAMONA JIMÉNEZ Procedure Practitioner Unavailab perry Cleemput ENGINE MANAGER-IDENTITY ACCESS MANAGEMENT ARCHITECT, Sarita Emmanuel Primary Care Unajourdan lable Cleemput ENGINE MANAGER-IDENTITY ACCESS MANAGEMENT ARCHITECT, Sarita Emmanuel Attending Unavaeladia lable Cleemput ENGINE MANAGER-IDENTITY ACCESS MANAGEMENT ARCHITECT, Sarita Emmanuel Attending Unajourdan lable Cleemput ENGINE MANAGER-IDENTITY ACCESS MANAGEMENT ARCHITECT, Sarita Emmanuel Primary Care Jayy mariole Cleemput ENGINE MANAGER-IDENTITY ACCESS MANAGEMENT ARCHITECT, Sarita Emmanuel Referring Jayy Roach MD, Demetrice Portillo Attending Unavailable Cleemput ENGINE MANAGER-IDENTITY ACCESS MANAGEMENT ARCHITECT, Sarita Emmanuel Primary Care Unavai lable Cleemput ENGINE MANAGER-IDENTITY ACCESS MANAGEMENT ARCHITECT, Sarita Emmanuel Primary Care Unavai lable Cleemput ENGINE MANAGER-IDENTITY ACCESS MANAGEMENT ARCHITECT, Sarita Emmanuel Attending Unavai lable Cleemput ENGINE MANAGER - BREAKER OPERATOR, Sarita Costello Primary Care Provider CLEROBERT, SARITA Costello Referring Unavailable CLEEMPUT, SARITA Costello Primary Care Unavailable Unavailable Primary Care Provider Unavailabl e Cleemput ENGINE MANAGER - BREAKER OPERATOR, Sarita Costello Primary Care Provider Cleemput ENGINE MANAGER-IDENTITY ACCESS MANAGEMENT ARCHITECT, Sarita Costello Primary Care Provider [place], SARITA Costello Primary Care Unavailable BRIDGER SIMS Referring Unavailable CLEEMPUT, SARITA Costello Primary Care Unavailable EVANGELIST JENKINS Attending Unavailable BETHANY, BRIDGER Attending Unavailable XU, SARITA Attending Unavailable XU, SARITA Attending Unavailable BETHANY, BRIDGER Attending Unavailable CARMELA LITTLE Attending Unavailable XU, SARITA Attending Unavailable BETHANY, BRIDGER Attending Unavailable XU, SARITA Attending Unavailable XU, SARITA Attending Unavailable Allergies Allergy ClassificationReported Allergen(s)Allergy TypeDate of OnsetReaction(s) Facility (1 source)Adhesive agentDrug allergy (disorder)[facility] Repository (2 sources)Latex; Translations: [LATEX]Drug allergy (disorder)47-16-4649[facility]xb[facility] (1 source)morphineDrug AllergySelect [facility]ty [facility] (1 source)LatexDrug allergy (disorder)32-98-9790EcfSelect [facility] (5 sources)LatexPropensity to adverse reactions to fxtj07-74-8478QhicrQZWBon Secours St[facility] (20 sources)Hydrocortisone; Translations: [HYDROCORTISONE]Drug Peeegoz19-00-3211 [facility] Repository (20 sources)CortisoneDrug Wzhluew18-13-5313DmkwYWRT Healthcare Work Phone: (20 sources)LatexPropensity to adverse kzscadvbu49-22-5776XkxwiUWUS Healthcare Work Phone: (20 sources)MorphineDrug Wgbsiwl17-84-3833Vgu [facility] Medications Current Medications MedicationDrug Class(es)DatesSig (Normalized)Sig (Original)multivit-min/ferrous fumarate (MULTI VITAMIN ORAL) (2 sources)take 1 tablet by mouth once dailymultivit-min/ferrous fumarate (MULTI VITAMIN ORAL) Take 1 tablet by mouth daily. Activetake 1 tablet by mouth once dailymultivit-min/ferrous fumarate (MULTI VITAMIN ORAL) Take 1 tablet by mouth daily. 0 Activeondansetron 4 mg disintegrating oral tablet (3 sources)Serotonin-3 Receptor AntagonistStart: 08-58-2810kupw 1 tablet by mouth three times daily as needed for nauseaondansetron (ZOFRAN-ODT) 4 MG disintegrating tablet Take 1 tablet by mouth 3 times daily as needed for Nausea or Vomiting 6 tablet 04/16/2023 Activepolysaccharide iron complex 391 mg oral capsule (20 sources)Start: 05-07-2025 End: 58-12-3770jebm 1 capsule by mouth once dailyiron polysaccharides (ProFe) 391.3 (180 Fe) MG capsule Indications: Low hemoglobin Take 1 capsule (391.3 mg) by mouth Daily 30 capsule 3 05/07/2025 06/15/2025 ActiveStart: 03-27-2024 End: 21-44-7968vjcy 1 capsule by mouth once dailyiron polysaccharides [...] Active Completed/Discontinued Medications MedicationDrug Class(es)DatesSig (Normalized)Sig (Original)levonorgestrel 0.043793 mg/hr intrauterine system (1 source)Progestin, Progestin-containing Intrauterine Device End: 47-65-6634elvsxxrcnbgfzB (MIRENA) 20 mcg/24 hours (8 yrs) 52 mg IUD 1 each by intrauterine route once. 0 09/25/2023 Discontinued (Therapy completed) Problems Active Problems Problem ClassificationProblemDateDocumented DateEpisodic/ChronicContraceptive and procreative management (3 sources)Encounter for removal of intrauterine contraceptive device; Translations: [Contraception ]Onset: 618033-05-9546MmftskdlFlumjcvkekczm and screening for infectious disease (6 sources)Encounter for screening for other viral diseases; Translations: [Patient encounter status]Onset: 576094-98-7600RkbnnqjrFfewjccku disorders (20 sources)Secondary amenorrhea; Translations: [Missed period]Onset: 11-21-2019 58-44-9458OujsxjiUyvcvrulkxs deficiencies (2 sources)Serum iron low; Translations: [Iron deficiency]55-15-0364Hmpyxfuh Other complications of ; puerperium affecting management of mother (3 sources)Obesity complicating childbirth; Translations: [OBESITY COMPLICATING CHILDBIRTH]Onset: 72-10-0818NfzrkmzGotmf female genital disorders (2 sources)Intrauterine synechiae; Translations: [Intrauterine synechiae] 50-35-8032FyelbvaoKpsly nutritional; endocrine; and metabolic disorders (1 source)Obesity, unspecified; Translations: [OBESITY UNSPECIFIED]Onset: 24-30-6602UxfioveLljje and delivery including normal (20 sources)Encounter for supervision of normal , unspecified, third trimester; Translations: [Encounter for supervision of normal , unspecified, unspecified trimester]Onset: 803240-46-3559DkhstxjkNggxf screening for suspected conditions (not mental disorders or infectious disease) (4 sources)Patient encounter status; Translations: [Encounter for other specified screening]14-55-7374HphqnwnpSxcdycmk codes; unclassified (4 sources)Gestation period, 36 weeks; Translations: [36 weeks gestation of ]84-77-3797MgshyofxJupepavp codes; unclassified (2 sources)Gestation period, 20 weeks; Translations: [ weeks gestation of ]25-74-6818PaprzkxnAjcrfbwr codes; unclassified (2 sources)Gestation period, 24 weeks; Translations: [24 weeks gestation of ]87-06-2980RgvjawqbYmejvnye codes; unclassified (2 sources)Gestation period, 28 weeks; Translations: [28 weeks gestation of ]11-65-0587BetuckuwAacqpxno codes; unclassified (2 sources)Gestation period, 30 weeks; Translations: [30 weeks gestation of ]33-52-4353ZhqffxdlLulnmfhb codes; unclassified (2 sources)Gestation period, 32 weeks; Translations: [32 weeks gestation of ]79-46-1807AcljdbqbFdiqffnz codes; unclassified (2 sources)Gestation period, 34 weeks; Translations: [34 weeks gestation of ]71-36-1536SkkxftmnFmglauhd codes; unclassified (2 sources)Gestation period, 35 weeks; Translations: [35 weeks gestation of ]66-28-9455BvcndmtfOpynoxqq codes; unclassified (1 source)39 weeks gestation of ; Translations: [39 WEEKS GESTATION OF ]Onset: 50-49-1416Qtzokbyf codes; unclassified (1 source)36 weeks gestation of ; Translations: [36 WEEKS GESTATION OF ]Onset: 19-42-5883Chgdjfelk and history of mental health and substance abuse codes (1 source)Personal history of nicotine dependence; Translations: [PERSONAL HISTORY OF NICOTINE DEPEND]Onset: 48-45-5278ZhprjldiKyjfghmyp cord complication (1 source)Labor and delivery complicated by cord around neck, without compression, not applicable or unspecified; Translations: [L AND D COMP CORD NECK NO COMPRS NA/UNS]Onset: 15-01-5601Njynizbg Past or Other Problems Problem ClassificationProblemDateDocumented DateEpisodic/ChronicOpen wounds of extremities (2 sources)Laceration of left middle finger; Translations: [Laceration without foreign body of left middle finger without damage to nail, initial encounter] Onset: 774541-02-2727QjndmzbmFtngp complications of (2 sources) size does not accord with dates; Translations: [Uterine size- date discrepancy, unspecified trimester]35-18-8662LuephdisEkdix infections; including parasitic (4 sources)Personal history of other infectious and parasitic diseases; Translations: [PERSONAL HX OTH INF ANDPARASITIC DZ]Onset: 00-23-9874Qipfcodr Residual codes; unclassified (20 sources)Gestation period, 15 weeks; Translations: [15 weeks gestation of ]Onset: 394158-91-0959Pkkhekle Results Test NameValueInterpretationReference RangeFacilityUrinalysis macro (dipstick) panel (U)on 33-14-5895Bdfcyawjb, UANegativeNegative - 4(70) +++ mg/dLNOMS HealthcareBlood, UANegativeNegative - 50 Haseeb/mcLNOMS HealthcareClarity, UAClear NOMS HealthcareColor, UAYellowNOMS HealthcareGlucose, UANegativeNegative - 2000(110) ++++ mg/dLNOIL HealthcareInterpretation and review of laboratory resultsAbnormalNOMS HealthcareKetones, UAPositiveNegative - 160(16) ++++ mg/dL NOMS HealthcareLeukocytes, UANegativeNegative - 500+++ Ronaldo/mcLNOMS Healthcare Nitrite, UANegativeNegative - PositiveNOMS HealthcarepH, UA6.05 - 9NOMS HealthcareProtein, UANegativeNegative - 2000(20) ++++ mg/dLNOMS HealthcareSpec Grav, UA1.0201 - 1.03NOMS HealthcareUrobilinogen, UA1.00.2 - 12 mg/dLNOMS HealthcareNOMS HealthcareCLINDAMYCINon 05-42-7069LCEHXNYXJJJ Clindamycin WILL FOLLOW [facility] HealthcareNo Panel Informationon 60-63-5817EUIOGOIVQWGCC HealthcareORGANISM IDENTIFICATIONon 43-71-4796VVCJOYOE IDENTIFICATION Organism Identification WILL FOLLOW NOMS HealthcareSTREP GP B CULTURE+RFLXon 41-49-7176LZXGT GP B CULTURE+RFLX Strep Gp B Culture+Rflx NOMS HealthcareSTREP GP B CULTURE+RFLX*ABNORMAL*NOMS HealthcareSTREP GP B CULTURE+RFLXPositiveNOMS HealthcareSTREP GP B CULTURE+RFLXCenters for Disease Control and Prevention (CDC) andNOMS HealthcareSTREP GP B CULTURE+RFLXAmerican Congress of Obstetricians and GynecologistsNOMS HealthcareSTREP GP B CULTURE+RFLX(ACOG) guidelines for prevention of group BNOMS Healthcare STREP GP B CULTURE+RFLXstreptococcal (GBS) disease specify co-collection ofNOMS HealthcareSTREP GP B CULTURE+RFLXa vaginal and rectal swab specimen to maximize NOMS HealthcareSTREP GP B CULTURE+RFLXsensitivity of GBS detection. Per the CDC and ACOG,NOMS HealthcareSTREP GP B CULTURE+RFLXswabbing both the lower vagina and rectumNOMS HealthcareSTREP GP B CULTURE+RFLXsubstantially increases the yield of detectionNOMS HealthcareSTREP GP B CULTURE+RFLXcompared with sampling the vagina alone.NOMS HealthcareSTREP GP B CULTURE+RFLXPenicillin G, ampicillin, or cefazolin are indicatedNOMS HealthcareSTREP GP B CULTURE+RFLXfor intrapartum prophylaxis of GBSNOMS HealthcareSTREP GP B CULTURE+RFLXcolonization. Reflex susceptibility testing should beNOMS HealthcareSTREP GP B CULTURE+RFLX performed prior to use of clindamycin only on GBSNOMS HealthcareSTREP GP B CULTURE+RFLXisolates from penicillin-allergic women who areNOMS HealthcareSTREP GP B CULTURE+RFLXconsidered a high risk for anaphylaxis. Treatment withNOMS HealthcareSTREP GP B CULTURE+RFLXvancomycin without additional testing is warranted ifNOMS HealthcareSTREP GP B CULTURE+RFLXresistance to clindamycin is noted.[facility] HealthcareRECURRENT VAGINITIS (HTRX)on 48-83-4016ZBKHLBSJI VAGINAE0 [facility] HealthcareATOPOBIUM VAGINAENot detectedNOIL HealthcareBVAB 2,3 (BACTERIAL VAGINOSIS ASSOCIATED BACTERIA 2, 3); MOBILUNCUS EUY7VLGY HealthcareBVAB 2,3 (BACTERIAL VAGINOSIS ASSOCIATED BACTERIA 2, 3); MOBILUNCUS SPPNot detectedNOIL HealthcareCANDIDA ALBICANS, PARAPSILOSIS, WTQQLXSRAF2VWJF HealthcareCANDIDA ALBICANS, PARAPSILOSIS, TROPICALISNot detectedNOMS HealthcareCANDIDA GLABRATA0 NOM HealthcareCANDIDA GLABRATANot detectedNOMS HealthcareCANDIDA OHCRAA6YVHE HealthcareCANDIDA KRUSEINot detectedNOMS HealthcareCHLAMYDIA ITOUKKWCUJZ0XRGH HealthcareCHLAMYDIA TRACHOMATISNot detectedNOMS HealthcareGARDNERELLA VAGINALIS0 NOMS HealthcareGARDNERELLA VAGINALISNot detectedNOMS HealthcareMEGASPHAERA (TYPES 1, 2)0NOMS HealthcareMEGASPHAERA (TYPES 1, 2)Not detectedNOMS Healthcare MYCOPLASMA ZWOLMBURTC0YQRQ HealthcareMYCOPLASMA GENITALIUMNot detectedNOMS HealthcareNEISSERIA NONOVHQBAKC4HZYR HealthcareNEISSERIA GONORRHOEAENot detected NOMS HealthcareTRICHOMONAS OPWLMKCYB1VMSW HealthcareTRICHOMONAS VAGINALISNot detectedNOMS HealthcareNOMS HealthcareUrinalysis macro (dipstick) panel (U)on 13-70-1278Bzaapmmuj, UANegativeNegative - 4(70) +++ mg/dLNOMS HealthcareBlood, UANegativeNegative - 50 Haseeb/mcLNOMS HealthcareClarity, UAClearNOMS Healthcare Color, UAYellowNOMS HealthcareGlucose, UANegativeNegative - 1999(110) ++++ mg/dL NOMS HealthcareInterpretation and review of laboratory resultsAbnormalNOMS HealthcareKetones, UANegativeNegative - 160(16) ++++ mg/dLNOIL Healthcare Leukocytes, UANegativeNegative - 500+++ Ronaldo/mcLNOMS HealthcareNitrite, UA NegativeNegative - PositiveNOMS HealthcarepH, UA6.05 - 9NOMS HealthcareProtein, UA1+Negative - 2000(20) ++++ mg/dLNOMS HealthcareSpec Grav, UA1.0101 - 1.03NOMS HealthcareUrobilinogen, UA1.00.2 - 12 mg/dLNOMS HealthcareNOIL Healthcare Urinalysis macro (dipstick) panel (U)on 95-55-1893Wwsjqemwh, UANegativeNegative - 4(70) +++ mg/dLNOMS HealthcareBlood, UANegativeNegative - 50 Haseeb/mcLNOMS HealthcareClarity, UAClearNOMS HealthcareColor, UAYellowNOMS HealthcareGlucose, UANegativeNegative - 1999(110) ++++ mg/dLNOMS HealthcareInterpretation and review of laboratory resultsAbnormalNOMS HealthcareKetones, UANegativeNegative - 160(16) ++++ mg/dLNOMS HealthcareLeukocytes, UANegativeNegative - 500+++ Ronaldo/mcL NOMS HealthcareNitrite, UANegativeNegative - PositiveNOMS HealthcarepH, UA6.05 - 9NOMS HealthcareProtein, UATraceNegative - 2000(20) ++++ mg/dLNOMS Healthcare Spec Grav, UA1.0201 - 1.03NOMS HealthcareUrobilinogen, UA2.00.2 - 12 mg/dLNOMS HealthcareNOMS HealthcareUS OB FOLLOW UP TRANSABDOMINAL APPROACHon 03-72-0702UF OB FOLLOW UP TRANSABDOMINAL APPROACHFINDINGS: A single, [...] menstrual period. TRANSCRIBED BY: ELECTRONICALLY SIGNED BY: Flip Fernández AvailableComment on above:Order Comment: US OB SCAN FOR GROWTH Estimated Date of Delivery: 08/19/25 Gestational Age as of 06/15/2025: 23n6vXaxvczpuoe macro (dipstick) panel (U)on 93-10-8094Ikrinwmit, UANegativeNegative - 4(70) +++ mg/dLNOMS HealthcareBlood, UANegativeNegative - 50 Haseeb/mcLNOMS HealthcareClarity, UAClearNOMS Healthcare Color, UAYellowNOMS HealthcareGlucose, UANegativeNegative - 2000(110) ++++ mg/dL NOMS HealthcareInterpretation and review of laboratory resultsNormalNOMS HealthcareKetones, UANegativeNegative - 160(16) ++++ mg/dLNOMS Healthcare Leukocytes, UANegativeNegative - 500+++ Ronaldo/mcLNOMS HealthcareNitrite, UA NegativeNegative - PositiveNOMS HealthcarepH, UA6.05 - 9NOMS HealthcareProtein, UANegativeNegative - 2000(20) ++++ mg/dLNOMS HealthcareSpec Grav, UA1.0201 - 1.03NOMS HealthcareUrobilinogen, UA0.20.2 - 12 mg/dLNOThree Rivers HealthcareNOIL HealthcareUrinalysis macro (dipstick) panel (U)on 85-17-8673Gzvmjsset, UA NegativeNegative - 4(70) +++ mg/dLNOIL HealthcareBlood, UAPositiveNegative - 50 Haseeb/mcLNOIL HealthcareClarity, UAClearNOMS HealthcareColor, UAYellowNOMS HealthcareGlucose, UANegativeNegative - 2000(110) ++++ mg/dLNOIL Healthcare Interpretation and review of laboratory resultsAbnormalNOMS HealthcareKetones, UANegativeNegative - 160(16) ++++ mg/dLNOIL HealthcareLeukocytes, UANegative Negative - 500+++ Ronaldo/mcLNOIL HealthcareNitrite, UANegativeNegative - Positive NOMS HealthcarepH, UA65 - 9NOMS HealthcareProtein, UANegativeNegative - 2000(20) ++++ mg/dLNOMS HealthcareSpec Grav, UA1.0151 - 1.03NOIL HealthcareUrobilinogen, UA1.00.2 - 12 mg/dLNOIL HealthcareNOIL HealthcareCCF FERRITINon 06-05-2025 Ferritin [Mass/Vol]5 ng/mLLow8.0 - 252.0 ng/mLNOMS HealthcareInterpretation and review of laboratory resultsAbnormalNOMS HealthcareCLINISYNCNOMS HealthcareALL CBC WITH AUTO DIFFon 83-36-0061WTKTLTMTL ABSOLUTE CWPE5VVMY Healthcare Basophils/100 WBC (Bld)0.3 %0.2 - 2.0 %NOMS HealthcareEosinophils/100 WBC (Bld) 0.7 %Low0.9 - 7.0 %NOM HealthcareErythrocyte distribution width (RBC) [Ratio] 13.9 %11.0 - 15.0 %NOMS HealthcareHematocrit (Bld) [Volume fraction]28.1 %Low 36.0 - 48.0 %NOM HealthcareHemoglobin (Bld) [Mass/Vol]9.1 g/dLLow12.0 - 16.0 g/dLColumbia Regional HospitalIMMATURE GRANULOCYTES ABS AUTO0.07HighNOIL HealthcareImmature granulocytes/100 WBC (Bld)0.7 %High0.0 - 0.5 %[facility] HealthcareInterpretation and review of laboratory resultsAbnormalNOIL HealthcareLYMPHOCYTES ABSOLUTE AUTO1.2 NOMTwo Rivers Psychiatric HospitalLymphocytes/100 WBC (Bld)12.6 %Low20.5 - 60.0 %Progress West HospitalH (RBC) [Entitic mass]24.9 pgLow26.7 - 34.0 pgNOThree Rivers HealthcareMCHC (RBC) [Mass/Vol]32.4 g/dL29.9 - 35.2 g/dLColumbia Regional HospitalMCV (RBC) [Entitic vol]77 fL Low81.0 - 99.0 fLColumbia Regional HospitalMONOCYTES ABSOLUTE AUTO0.7NOThree Rivers Healthcare Monocytes/100 WBC (Bld)7.2 %1.7 - 12.0 %NOM HealthcareNEUTROPHILS ABSOLUTE AUTO 7.7HighNOIL HealthcareNeutrophils/100 WBC (Bld)78.5 %High43.0 - 75.0 %[facility] Regional HospitalPlatelet mean volume (Bld) [Entitic vol]10.2 fL9.5 - 13.5 fLNOThree Rivers HealthcareTBH EO #0.1NOMS HealthcareTBH [id number] [facility] HospitalTB RBC3.65LowNOMS [facility] City HospitalTB WBC9.8NOIL HealthcareCLINISYNCNOMS HealthcareUS OB FOLLOW UP TRANSABDOMINAL APPROACHon 10-24-9489IQ OB FOLLOW UP TRANSABDOMINAL APPROACH FINDINGS: Comparison [...] Delivery: 08/19/25 Gestational Age as of 05/12/2025: 27i4gPuusdzooqt macro (dipstick) panel (U)on 79-50-8769Gmohjgejn, UANegativeNegative - 4(70) +++ mg/dLNOMS HealthcareBlood, UANegativeNegative - 50 Haseeb/mcLNOMS HealthcareClarity, UAClearNOMS Healthcare Color, UAYellowNOMS HealthcareGlucose, UANegativeNegative - 1999(110) ++++ mg/dL NOMS HealthcareInterpretation and review of laboratory resultsNormalNOMS HealthcareKetones, UANegativeNegative - 160(16) ++++ mg/dLNOMS Healthcare Leukocytes, UANegativeNegative - 500+++ Ronaldo/mcLNOMS HealthcareNitrite, UA NegativeNegative - PositiveNOMS HealthcarepH, UA6.55 - 9NOMS HealthcareProtein, UANegativeNegative - 1999(20) ++++ mg/dLNOMS HealthcareSpec Grav, UA1.0151 - 1.03NOThree Rivers HealthcareUrobilinogen, UA1.00.2 - 12 mg/dLI-[facility] HealthcareALL CBC WITH AUTO DIFFon 45-29-4791MPHUKHAHV ABSOLUTE AUTO0.1NOMS HealthcareBasophils/100 WBC (Bld)0.5 %0.2 - 2.0 %NOMS [facility] HospitalEosinophils/100 WBC (Bld)1.6 %0.9 - 7.0 %[facility] Regional HospitalErythrocyte distribution width (RBC) [Ratio]14 %11.0 - 15.0 %[facility] HospitalHematocrit (Bld) [Volume fraction]29.8 % Low36.0 - 48.0 %[facility] HospitalHemoglobin (Bld) [Mass/Vol]9.5 g/dLLow12.0 - 16.0 g/dLColumbia Regional HospitalIMMATURE GRANULOCYTES ABS AUTO0.08HighColumbia Regional Hospital Immature granulocytes/100 WBC (Bld)0.8 %High0.0 - 0.5 %[facility] Interpretation and review of laboratory resultsAbnormalColumbia Regional Hospital LYMPHOCYTES ABSOLUTE AUTO1.2NOMS [facility] HospitalLymphocytes/100 WBC (Bld)12.6 %Low 20.5 - 60.0 %[facility] HospitalH (RBC) [Entitic mass]25.2 pgLow26.7 - 34.0 pgProgress West HospitalHC (RBC) [Mass/Vol]31.9 g/dL29.9 - 35.2 g/dLProgress West HospitalV (RBC) [Entitic vol]79 fLLow81.0 - 99.0 fLColumbia Regional HospitalMONOCYTES ABSOLUTE AUTO0.7 [facility] HospitalMonocytes/100 WBC (Bld)7.7 %1.7 - 12.0 %[facility] NEUTROPHILS ABSOLUTE AUTO7.2HighColumbia Regional HospitalNeutrophils/100 WBC (Bld)76.8 % High43.0 - 75.0 %[facility] Regional HospitalPlatelet mean volume (Bld) [Entitic vol]10.8 fL 9.5 - 13.5 fLColumbia Regional HospitalTB EO #0.2NOMS [facility] HospitalTB [id number] Rivers Healthcare TBH RBC3.77LowNOThree Rivers HealthcareTB WBC9.4Columb[facility] Regional HospitalCLINISYNCNOMS HealthcareUS OB LIMITED 1+ FETUSESon 98-72-0377FL OB LIMITED 1+ FETUSESEXAM: US OB LIMITED [...] II, MD, PHD at 05-May-2025 07:59:10 AM [facility]iologyNormalNot AvailableComment on above:Order Comment: US OB INCOMPLETE ANATOMY Estimated Date of Delivery: 08/19/25 Gestational Age as of 04/13/2025: 24w9jKrtgftsykp macro (dipstick) panel (U)on 19-38-3976Knqsdralq, UANegativeNegative - 4(70) +++ mg/dLNOMS HealthcareBlood, UANegativeNegative - 50 Haseeb/mcLNOMS HealthcareClarity, UAClearNOMS Healthcare Color, UAStrawNOMS HealthcareGlucose, UANegativeNegative - 2000(110) ++++ mg/dL NOMS HealthcareInterpretation and review of laboratory resultsAbnormalNOMS HealthcareKetones, UANegativeNegative - 160(16) ++++ mg/dLNOMS Healthcare Leukocytes, UANegativeNegative - 500+++ Ronaldo/mcLNOMS HealthcareNitrite, UA NegativeNegative - PositiveNOMS HealthcarepH, UA65 - 9NOMS HealthcareProtein, UA PositiveNegative - 2000(20) ++++ mg/dLNOMS HealthcareSpec Grav, UA1.031 - 1.03 NOMS HealthcareUrobilinogen, UA1.00.2 - 12 mg/dLNOMS HealthcareNOMS HealthcareUS OB 14+ WEEKS ANATOMY SCANon 52-82-0282OQ OB 14+ WEEKS ANATOMY SCANEXAM: US OB [...] II, MD, PHD at 07-Apr-2025 07:25:13 AM [facility]eleradiologyNormalNot AvailableComment on above:Order Comment: US OB ANATOMY SINGLE W US OB CERVICAL LENGTH Estimated Date of Delivery: 12/3/25 Gestational Age as of 03/03/2025: 73q9jMYP, SERUM, OPEN SPINA BIFIDAon 03-05-2025 AFP MOM1.27.NOMTwo Rivers Psychiatric HospitalAFP VALUE37.2 ng/mL.NOMS HealthcareCOMMENT:Comment. NOM HealthcareComment on above:Crystal Mancilla, Ph.D., [facility] Director References: Available Upon Request. Multiples Of Median Cutoffs For AFP Elevations Hill 2.5 Black 2.8 IDD 2.0 Twins 4.5 Abbreviation Definitions IDD - Insulin Dep Diabetes OSBR - Open Spina Bifida Risk For further inquiries contact [employer] at [phone]. This test was developed and its performance characteristics determined by [employer]. It has not been cleared or approved by the Food and Drug Administration. Performed at: [facility] [address] [place], [place] [id number] Glue Mounter Operator: Nickolas Flynn [facility], Phone: [phone] GEST. AGE ON COLLECTION DATE15.9. weeksNOIL HealthcareGESTAT. AGE BASED ON Ultrasound.NOM HealthcareComment on above:15.9 on 03/03/2025 Recalculations are not recommended when gestational dating by LMP and ultrasound are within 10 days. INSULIN DEP DIABETESNo.[facility] HealthcareINTERPRETATIONComment.[facility] Healthcare Comment on above:Interpretation: Screen Negative This [...] Customer Services to discuss available options. The [place] [employer] recommends amniocentesis be offered to women age 35 and older. MATERNAL AGE AT EDD29.7. yrNOIL HealthcareMULTIPLE GESTATIONNo.[facility] Healthcare OSBR RISK 1 [id number].NOMS HealthcareRACECaucasian.NOMS HealthcareRESULTSReport. NOMS HealthcareTEST RESULTS:Negative.NOMS VrfldokaamKNMJNW017. lbsNOMS HealthcareN N ULTRASOUND [id number] 6 15 N 1 178 N N N N N White/ CLINISYNCNOMS HealthcareUrinalysis macro (dipstick) panel (U)on 03-03-2025 Bilirubin, UANegativeNegative - 4(70) +++ mg/dLNOIL HealthcareBlood, UANegative Negative - 50 Haseeb/mcLNOIL HealthcareClarity, UAClearNOMS HealthcareColor, UA YellowNOMS HealthcareGlucose, UANegativeNegative - 2000(110) ++++ mg/dLNOIL HealthcareInterpretation and review of laboratory resultsAbnoWashington Health System Ketones, UANegativeNegative - 160(16) ++++ mg/dLColumbia Regional HospitalLeukocytes, UA NegativeNegative - 500+++ Ronaldo/mcLColumbia Regional HospitalNitrite, UANegativeNegative - PositiveNOIL HealthcarepH, UA7.55 - 9NOIL HealthcareProtein, UATraceNegative - 2000(20) ++++ mg/dLNOIL HealthcareSpec Grav, UA1.021 - 1.03NOIL Healthcare Urobilinogen, UA0.20.2 - 12 mg/dLColumbia Regional HospitalNOIL HealthcareBOX TESTon 40-05-5048BUJ TEST SENT OUTUNSt. Francis HospitalZevdjovovsSBM8UTVPQMRSI HealthcareBOX2 03/02/25NOThree Rivers HealthcareUNITY BOX CLINISYSaint Thomas West HospitalHCG ( test) Ql (U)on 64-76-5618Outqszkvnfqonu and review of laboratory resultsAbHills & Dales General HospitalPreg Test, UrPositive NegativeNOThree Rivers HealthcareNo Panel Informationon 85-35-5152AEKD HealthcareUS OB TRANSVAGINALon 24-66-4617FZ OB TRANSVAGINALEXAM: US OB TRANSVAGINAL HISTORY: Dating. [...] II, MD, PHD at 16-Feb-2025 10:22:48 AM [facility] TeleradiologyNormalNot AvailableComment on above:Order Comment: US OB TRANSVAGINAL No LMP recorded.Urinalysis macro (dipstick) panel (U)on 44-18-8817Lgghsfdhf, UA NegativeNegative - 4(70) +++ mg/dLNOMS HealthcareBlood, UANegativeNegative - 50 Haseeb/mcLNOMS HealthcareClarity, UAClearNOMS HealthcareColor, UAYellowNOMS HealthcareGlucose, UANegativeNegative - 2000(110) ++++ mg/dLNOMS Healthcare Interpretation and review of laboratory resultsNormalJORDAN [facility] HealthcareKetones, UA NegativeNegative - 160(16) ++++ mg/dLNOMS HealthcareLeukocytes, UANegative Negative - 500+++ Ronaldo/mcLNOMS HealthcareNitrite, UANegativeNegative - Positive NOMS HealthcarepH, UA75 - 9NOMS HealthcareProtein, UANegativeNegative - 2000(20) ++++ mg/dLNOMS HealthcareSpec Grav, UA1.0251 - 1.03NOMS HealthcareUrobilinogen, UA0.20.2 - 12 mg/dLNOMS HealthcareALL HCG, QUANTITATIVEon 01-14-2025 Interpretation and review of laboratory resultsAbnoWashington Health SystemMHPT HCG, [id number] HealthcareComment on above: Non-preg premeno <=5 Postmeno <=8 Male <=3 If HCG results do not concur with clinical observations, additional testing to confirm results is recommended. Original Ordering Provider: BRIDGER MORSE DO FAZIOCLINISYNCNOMS HealthcareHCG, Quanton 18-59-6502OPD, Jwghp616841.0 mIU/mLMinnie Hamilton Health Center[address] HospitalComment on above:Result Comment: Non-preg premeno <=5 Postmeno <=8 Male <=3 If HCG results do not concur with clinical observations, additional testing to confirm results is recommended.Performed By: #### BHCG #### [facility] [address] [place] [address] Glue Mounter Operator: Frankie Sen MDHCG, Quantitative, Pregnancyon 28-15-9019TKX.beta subunit [id number] m[IU]/mLHighInova Children'S HospitalComment on above: Non-preg premeno <=5 Postmeno <=8 Male <=3 If HCG results do not concur with clinical observations, additional testing to confirm results is recommended. Interpretation and review of laboratory resultsAbnormCumberland Hospital Bon [facility]view Medical CenterXR FINGER LEFT (MIN 2 VIEWS)on 35-05-0726NB FINGER LEFT (MIN 2 VIEWS)EXAMINATION: THREE XRAY [...] Signed by: Koffi Ortez MD 09/13/24 Final resultNormalMerVeterans Administration Medical CenterXR Finger - left 2 Viewson 13-00-5895Bd acute osseous abnormality. [facility] CONSOLIDATEDEXAMINATION: THREE XRAY VIEWS OF THE LEFT FINGERS 09/13/2024 6:42 pm COMPARISON: None. HISTORY: ORDERING SYSTEM PROVIDED HISTORY: lac TECHNOLOGIST PROVIDED HISTORY: lac Specify which digit to image->Third FINDINGS: Bone: No acute fracture. Mineralization: Normal bone mineralization. Joint: No dislocation. No significant degenerative changes. Soft tissues: Unremarkable. [facility] Koffi Ba MD - 09/13/2024 EXAMINATION: THREE XRAY VIEWS OF THE LEFT FINGERS 09/13/2024 6:42 pm COMPARISON: None. HISTORY: ORDERING SYSTEM PROVIDED HISTORY: lac TECHNOLOGIST PROVIDED HISTORY: lac Specify which digit to image->Third FINDINGS: Bone: No acute fracture. Mineralization: Normal bone mineralization. Joint: No dislocation. No significant degenerative changes. Soft tissues: Unremarkable. IMPRESSION: No acute osseous abnormality. [facility] Children'S HospitalRadiology Study observation (narrative)[facility] Children'S HospitalXR Finger - left 2 ViewsOrdered By: Koffi Ortez on 10-42-9443Obi [facility] [employer] Work Phone: all CBC WITH AUTO DIFFon 22-03-3061XHTBUSKHP ABSOLUTE AUTO0.0NOMS HealthcareBasophils/100 WBC (Bld)0.2 %0.2 - 2.0 %[facility] Healthcare Eosinophils/100 WBC (Bld)0.8 %Low0.9 - 7.0 %[facility] HealthcareErythrocyte distribution width (RBC) [Ratio]13.2 %11.0 - 15.0 %[facility] HealthcareHematocrit (Bld) [Volume fraction]25.7 %Low36.0 - 48.0 %[facility] HealthcareHemoglobin (Bld) [Mass/Vol]8.3 g/dLLow12.0 - 16.0 g/dLColumbia Regional HospitalIMMATURE GRANULOCYTES ABS AUTO0.09HighNOThree Rivers HealthcareImmature granulocytes/100 WBC (Bld)0.7 %High0.0 - 0.5 %[facility] HealthcareInterpretation and review of laboratory resultsAbnormalNOThree Rivers HealthcareLYMPHOCYTES ABSOLUTE AUTO1.4NOMS HealthcareLymphocytes/100 WBC (Bld) 11.5 %Low20.5 - 60.0 %Progress West HospitalH (RBC) [Entitic mass]25.5 pgLow26.7 - 34.0 pgNOThree Rivers HealthcareMCHC (RBC) [Mass/Vol]32.3 g/dL29.9 - 35.2 g/dLColumbia Regional HospitalMCV (RBC) [Entitic vol]78.8 fLLow81.0 - 99.0 fLColumbia Regional Hospital MONOCYTES ABSOLUTE AUTO0.9HighNOThree Rivers HealthcareMonocytes/100 WBC (Bld)7.2 %1.7 - 12.0 %NOM HealthcareNEUTROPHILS ABSOLUTE AUTO9.7HighNOThree Rivers Healthcare Neutrophils/100 WBC (Bld)79.6 %High43.0 - 75.0 %[facility] HealthcarePlatelet mean volume (Bld) [Entitic vol]10.8 fL9.5 - 13.5 fLOzarks Community Hospital EO #0.1NOMS [facility] MGT325CIVZMoberly Regional Medical Center RBC3.26LowOzarks Community Hospital WBC12.2High Columbia Regional HospitalCLINISYNFormerly [facility] CBC WITH PLATELET NO DIFFERENTIALon 41-46-8875Gwpagpvmmpb distribution width (RBC) [Ratio]13.0 %11.0 - 15.0 %[facility] Regional HospitalHematocrit (Bld) [Volume fraction]28.1 %Low36.0 - 48.0 %[facility] Regional HospitalHemoglobin (Bld) [Mass/Vol]9.2 g/dLLow12.0 - 16.0 g/dLColumbia Regional Hospital Interpretation and review of laboratory resultsAbnormHaven Behavioral Hospital of Philadelphia (RBC) [Entitic mass]25.5 pgLow26.7 - 34.0 pgSaint Joseph Health Center (RBC) [Mass/Vol]32.7 g/dL29.9 - 35.2 g/dLProgress West HospitalV (RBC) [Entitic vol]77.8 fLLow81.0 - 99.0 fLColumbia Regional HospitalPlatelet mean volume (Bld) [Entitic vol]11.0 fL9.5 - 13.5 fL [facility] QJV106YUMQMoberly Regional Medical Center RBC3.61LowOzarks Community Hospital WBC8.4 [facility]umberland Medical CenterYNPiedmont Medical Center - Gold Hill EDUrinalysis macro (dipstick) panel (U)on 71-77-1562Zvasznjdq, UANegativeNegative - 4(70) +++ mg/dLColumbia Regional HospitalBlood, UANegativeNegative - 50 Haseeb/mcLNOIL HealthcareClarity, UAClearNOThree Rivers Healthcare Color, UAYellowNOIL HealthcareGlucose, UANegativeNegative - 1999(110) ++++ mg/dL Columbia Regional HospitalInterpretation and review of laboratory resultsAbnormLehigh Valley Hospital - PoconoKetones, UAPositiveNegative - 160(16) ++++ mg/dLColumbia Regional Hospital Leukocytes, UAPositiveNegative - 500+++ Ronaldo/mcLNOIL HealthcareNitrite, UA NegativeNegative - PositiveNOIL HealthcarepH, UA6.55 - 9NOThree Rivers HealthcareProtein, UANegativeNegative - 2000(20) ++++ mg/dLNOMS HealthcareSpec Grav, UA1.0251 - 1.03NOMS HealthcareUrobilinogen, UA1.00.2 - 12 mg/dLNOMS HealthcareNOMS HealthcareUrinalysis macro (dipstick) panel (U)on 50-08-8623Nejwakjxc, UA NegativeNegative - 4(70) +++ mg/dLNOMS HealthcareBlood, [...] - 12 mg/dLNOMS HealthcareNOMS HealthcareUS OB GROWTHon 55-91-1227N[address] [address] Ultrasound Report Signed Patient: SANGEETHA MELGOZA MR#: [id number] : 1995 Acct:[id number] Age/Sex: 28 / F ADM Date: 05/29/24 Loc: US Attending Dr: Sarita Ballard Ordering Physician: Sarita Ballard Date of Service: 05/29/24 Procedure(s): US OB growth Accession Number(s): [id number] cc: Sarita Ballard; Physician,Non-Staff M.Azra [address] [address] Patient Name: SANGEETHA MELGOZA MRN: [id number] date: 1995 Sex: F Assigned Patient Location: US Current Patient Location: US Accession/Order Number: [id number] Exam Date: 05/29/2024 08:30 Report Date: 05/29/2024 [...] M.D. Signed By: 05/29/24917 DD/ 4 TD/TT: Freight Inspector:TBHRadiology, Radiologist, - 05/29/2024 [place] [address] Ultrasound Report Signed Patient: SANGEETHA MELGOZA MR#: [id number] : 1995 Acct:[id number] Age/Sex: 28 / F ADM Date: 05/29/24 Loc: US Attending Dr: Sarita Ballard Ordering Physician: Sarita Ballard Date of Service: 05/29/24 Procedure(s): US OB growth Accession Number(s): [id number] cc: Sarita Ballard; Physician,Non-Staff MAj The [address] [address] Patient Name: SANGEETHA MELGOZA MRN: [id number] date: 1995 Sex: F Assigned Patient Location: US Current Patient Location: US Accession/Order Number: [id number] Exam Date: 05/29/2024 08:30 Report Date: 05/29/2024 [...] M.D. Signed By: 05/29/24917 DD/ 4 TD/TT: Freight Inspector: NOMS HealthcareRadiology Study observation (narrative)NOMS HealthcareUS OB GROWTHOrdered By: Radiologist Radiology on 82-86-1415IM[facility] Work Phone: Urinalysis macro (dipstick) panel (U)on 05-27-2024 Bilirubin, UANegativeNegative - 4(70) +++ mg/dLNOMS HealthcareBlood, UANegative Negative - 50 Haseeb/mcLNOMS HealthcareClarity, UAClearNOMS HealthcareColor, UA YellowNOMS HealthcareGlucose, UANegativeNegative - 2000(110) ++++ mg/dLNOMS HealthcareInterpretation and review of laboratory resultsAbnormalNOMS Healthcare Ketones, UANegativeNegative - 160(16) ++++ mg/dLNOMS HealthcareLeukocytes, UA PositiveNegative - 500+++ Ronaldo/mcLNOMS HealthcareComment on above:smallNitrite, UANegativeNegative - PositiveNOMS HealthcarepH, UA8.55 - 9NOMS Healthcare Protein, UANegativeNegative - 2000(20) ++++ mg/dLNOMS HealthcareSpec Grav, UA 1.0201 - 1.03NOMS HealthcareUrobilinogen, UA0.20.2 - 12 mg/dLNOMS HealthcareNOMS HealthcareUrinalysis macro (dipstick) panel (U)on 45-71-7856Rqhnhlcgv, UA NegativeNegative - 4(70) +++ mg/dLNOMS HealthcareBlood, UANegativeNegative - 50 Haseeb/mcLNOMS HealthcareClarity, UAClearNOMS HealthcareColor, UAYellowNOMS HealthcareGlucose, UANegativeNegative - 2000(110) ++++ mg/dLNOMS Healthcare Interpretation and review of laboratory resultsAbnormalNOMS HealthcareKetones, UANegativeNegative - 160(16) ++++ mg/dLNOMS HealthcareLeukocytes, UATrace Negative - 500+++ Ronaldo/mcLNOMS HealthcareNitrite, UANegativeNegative - Positive NOMS HealthcarepH, UA8.55 - 9NOMS HealthcareProtein, UATraceNegative - 1999(20) ++++ mg/dLNOMS HealthcareSpec Grav, UA1.0201 - 1.03NOMS HealthcareUrobilinogen, UA0.20.2 - 12 mg/dLNOMS HealthcareNOMS HealthcareUS OB GROWTHon 40-35-9782EngRob[place], [place] [address] Ultrasound Report Signed Patient: SANGEETHA MELGOZA MR#: [id number] : 1995 Acct:[id number] Age/Sex: 28 / F ADM Date: 04/29/24 Loc: NOMS Attending Dr: Sarita Ballard Ordering Physician: Sarita Ballard Date of Service: 04/29/24 Procedure(s): US OB growth Accession Number(s): [id number] cc: Sarita Ballard; Physician,Non-Staff MAj The [place] [id number] Patient Name: SANGEETHA MELGOZA MRN: [id number] date: 1995 Sex: F Assigned Patient Location: [facility] Current Patient Location: [facility] Accession/Order Number: [id number] Exam Date: 04/29/2024 11:30 Report Date: 04/29/2024 [...] FRANKIE HENDRICKSON Date: 04/29/2024 12:45 Dictated By: Frankei Hendrickson M.D. Signed By: 04/29/24 1247 DD/ 1245 TD/TT: Freight Inspector:ZACKARYHRadiology, Radiologist, - 04/29/[address] [address] Ultrasound Report Signed Patient: SANGEETHA MELGOZA MR#: [id number] : 1995 Acct:[id number] Age/Sex: 28 / F ADM Date: 04/29/24 Loc: NOMS Attending Dr: Sarita Ballard Ordering Physician: Sarita Ballard Date of Service: 04/29/24 Procedure(s): US OB growth Accession Number(s): [id number] cc: Sarita Ballard; Physician,Non-Staff M.DRina [place] [address] Patient Name: SANGEETHA MELGOZA MRN: [facility]:[id number] date: 1995 Sex: F Assigned Patient Location: [facility] Current Patient Location: [facility] Accession/Order Number: [id number] Exam Date: 04/29/2024 11:30 Report Date: 04/29/2024 12:45 At the request of: SAIRTA BALLARD Procedure: US OB growth EXAMINATION: US [...] Signed By: 04/29/24 1247 DD/ 1245 TD/TT: Freight Inspector: ANALIA HealthcareRadiology Study observation (narrative)[facility] HOSPITALSalome NelsonUS OB GROWTHOrdered By: Radiologist Radiology on 19-24-5783HETCColumbia Regional Hospital Work Phone: no Panel InformationOrdered By: Radiologist Radiology on 80-64-9737LAVQColumbia Regional Hospital Work Phone: no Panel Informationon 88-35-8765Ghdezrvmt Study observation (narrative)ANALIA NelsonUS OB ANATOMYon 77-10-0020YvvRoby, [place] [address] Ultrasound Report Signed Patient: SANGEETHA MELGOZA MR#: [id number] : 1995 Acct:[id number] Age/Sex: 28 / F ADM Date: 01/22/24 Loc: US Attending Dr: Bridger Sims D.O. Ordering Physician: Bridger Sims D.O. Date of Service: 01/22/24 Procedure(s): US OB anatomy Accession Number(s): [id number] cc: Bridger Sims D.O.; Physician,Non-Staff M.DRina [place] [id number] Patient Name: SANGEETHA MELGOZA MRN: [id number] date: 1995 Sex: F Assigned Patient Location: US Current Patient Location: US Accession/Order Number: [id number] Exam Date: 01/22/2024 09:50 Report Date: 01/22/2024 [...] Signed By: 01/22/24 1100 DD/ 1058 TD/TT: Freight Inspector:TBHRadiology, Radiologist, - 01/22/2024 [place] [address] Ultrasound Report Signed Patient: SANGEETHA MELGOZA MR#: [id number] : 1995 Acct:[id number] Age/Sex: 28 / F ADM Date: 01/22/24 Loc: US Attending Dr: Bridger Sims D.O. Ordering Physician: Bridger Sims D.O. Date of Service: 01/22/24 Procedure(s): US OB anatomy Accession Number(s): [id number] cc: Bridger Sims D.O.; Physician,Non-Staff Ashleigh The [place] [id number] Patient Name: SANGEETHA MELGOZA MRN: [id number] date: 1995 Sex: F Assigned Patient Location: US Current Patient Location: US Accession/Order Number: [id number] Exam Date: 01/22/2024 09:50 Report Date: 01/22/2024 [...] Signed By: 01/22/24 1100 DD/ 1058 TD/TT: Freight Inspector: ANALIA Hernandez OB CERVICAL LENGTHon 16-85-9844BebRoby, [place] [address] Ultrasound Report Signed Patient: SANGEETHA MELGOZA MR#: [id number] : 1995 Acct:[id number] Age/Sex: 28 / F ADM Date: 01/22/24 Loc: US Attending Dr: Bridger Sims D.O. Ordering Physician: Bridger Sims D.O. Date of Service: 01/22/24 Procedure(s): US OB cervical length Accession Number(s): [id number] cc: Bridger Sims D.O.; Physician,Non-Staff Ashleigh [address] [address] Patient Name: SANGEETHA MELGOZA MRN: [facility]:[id number] date: 1995 Sex: F Assigned Patient Location: US Current Patient Location: US Accession/Order Number: [id number] Exam Date: 01/22/2024 09:50 Report Date: 01/22/2024 [...] Signed By: 01/22/24 1100 DD/ 1058 TD/TT: Freight Inspector:TBHRadiology, Radiologist, MD - 01/22/2024 [place] [address] Ultrasound Report Signed Patient: SANGEETHA MELGOZA MR#: [id number] : 1995 Acct:[id number] Age/Sex: 28 / F ADM Date: 01/22/24 Loc: US Attending Dr: Bridger Sims D.O. Ordering Physician: Bridger Sims D.O. Date of Service: 01/22/24 Procedure(s): US OB cervical length Accession Number(s): [id number] cc: Bridger Sims D.O.; Physician,Non-Staff Ashleigh The [place] [id number] Patient Name: SANGEETHA MELGOZA MRN: [id number] date: 1995 Sex: F Assigned Patient Location: US Current Patient Location: US Accession/Order Number: [id number] Exam Date: 01/22/2024 09:50 Report Date: 01/22/2024 [...] Signed By: 01/22/24 1100 DD/ 1058 TD/TT: Freight Inspector: NOMS HealthcareUS OB TRANSVAGINALon 99-31-9384ZfvRoby, [place] [address] Ultrasound Report Signed Patient: Sangeetha Melgoza MR#: [id number] : 1995 Acct:[id number] Age/Sex: 28 / F ADM Date: 12/13/23 Loc: NOMS Attending Dr: Bridger Sims D.O. Ordering Physician: Bridger Sims D.O. Date of Service: 12/13/23 Procedure(s): US OB transvaginal Accession Number(s): [id number] cc: Bridger Mcleod D.O. The [place] [address] Patient Name: SANGEETHA MELGOZA MRN: [id number] date: 1995 Sex: F Assigned Patient Location: NOMS Current Patient Location: [facility] Accession/Order Number: [id number] Exam Date: 12/13/2023 12:33 Report Date: 12/13/2023 [...] Signed By: 12/13/23 1345 DD/ 1343 TD/TT: Freight Inspector:TBHRadiology, Radiologist, - 12/13/2023 [place] [address] Ultrasound Report Signed Patient: Sangeetha Melgoza MR#: [id number] : 1995 Acct:[id number] Age/Sex: 28 / F ADM Date: 12/13/23 Loc: NOMS Attending Dr: Bridger Sims D.O. Ordering Physician: Bridger Sims D.O. Date of Service: 12/13/23 Procedure(s): US OB transvaginal Accession Number(s): [id number] cc: Bridger Mcleod D.O. The [place] [id number] Patient Name: SANGEETHA MELGOZA MRN: [id number] date: 1995 Sex: F Assigned Patient Location: [facility] Current Patient Location: [facility] Accession/Order Number: [id number] Exam Date: 12/13/2023 12:33 Report Date: 12/13/2023 [...] Signed By: 12/13/23 1345 DD/ 1343 TD/TT: Freight Inspector: ANALIA HealthcareRadiology Study observation (narrative)[facility] HealthcareUS OB TRANSVAGINALOrdered By: Radiologist Radiology on 37-31-5425ITRB [employer] Work Phone: clostridium Difficile Toxin/Antigenon 05-21-2023. difficile glutamate dehydrogenase and toxins A+B IA.rapid Ql (Stl)Negative [facility]ICH[facility] AT VCUComment on above:No C. 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 Migraines try imitrex if EKG is normal f/u in 1 month EKG normal Ordered: EKG Orders: SUMAtriptan, 1 tabs, Oral, Daily, PRN, may repeat dose after 2 hours up to a maximum of 200 mg in 24 hours, X 30 days, # 9 tabs, 0 Refill(s), 04/07/23 9:10:00 EDT, Pharmacy: [facility] [id number] Medical Decision Making Chronic conditions NOT treated [...] Electronically signed by Sarita Vo 03/08/23 11:43 EDTNormalBlCleveland Clinic [facility] CBC AUTO DIFFon 45-99-2683Qyjvjntpj (Bld) [#/Vol]0.0 103/ulNormal0.0-0.1The St. Mary'S Medical CenterComment on above:Performed By: #### CBC ####[facility] Tykmgxrtxf26[address] KarenBasophils/100 WBC (Bld)0.3 %Normal0.2-2.0The St. Mary'S Medical CenterComment on above:Performed By: #### CBC ####[facility] [address] [place], [place] [address]Gerken KarenEosinophils (Bld) [#/Vol]0.1 103/ulNormal0.0-0.7The St. Mary'S Medical CenterComment on above:Performed By: #### CBC ####[facility] [address] [place], [place] [address]Gerken KarenEosinophils/100 WBC (Bld)1.2 %Normal0.9-7.0The St. [facility]'S Medical CenterComment on above:Performed By: #### CBC ####[facility] [address] [place], [place] [address]Gerken KarenErythrocyte distribution width (RBC) [Ratio]14.1 %Normal 11.0-15.0The St. [facility]'S Medical CenterComment on above:Performed By: #### CBC ####[facility] [address] [place], [place] [address]Gerken KarenHematocrit (Bld) [Volume fraction]32.9 %Critically low36.0-48.0The St. Mary'S Medical CenterComment on above:Performed By: #### CBC ####[facility] [address] [place], [place] [address]Gerken KarenHemoglobin (Bld) [Mass/Vol]11.2 g/dLCritically low12.0-16.0The St. Mary'S Medical CenterComment on above: Performed By: #### CBC ####[facility] [address] [place], [place] [address]Gerken KarenIG #0.09 10e3/ulCritically high0.00-0.[address] [facility]'S Medical CenterComment on above:Performed By: #### CBC ####[facility] Fdlpf[address]re[address] [place], [place] [address]Gerken KarenIG %0.9 %Critically high0.0-0.5The St. [facility]'S Medical CenterComment on above:Performed By: #### CBC ####[facility] Zfid[address]hsiv[address] [place], [place] [address]Gerken KarenLymphocytes (Bld) [#/Vol]1.3 103/ulNormal1.2-3.8The St. [facility]'S Medical CenterComment on above:Performed By: #### CBC ####[facility] Nfhlrbtdyz6[address] KarenLymphocytes/100 WBC (Bld)13.1 %Critically low20.5-60.0The St. [facility]'S Medical CenterComment on above: Performed By: #### CBC ####[facility] [address] [place] [address] KarenMANUAL DI[address]The [address] Mary'S Medical CenterComment on above:Performed By: #### CBC ####[facility] Dzjdtppcpr[address] KarenMCH (RBC) [Entitic mass]29.[address]xewt47.7-34.0The [address] [facility]'S Medical CenterComment on above: Performed By: #### CBC ####[facility] [address] [place] [address] KarenMCHC (RBC) [Mass/Vol]34.0 g/dLNormal 29.9-35.2The St. [facility]'S Medical CenterComment on above:Performed By: #### CBC ####[facility] [address] [place] [address] KarenMCV (RBC) [Entitic vol]87.[address]mvz46.0-99.0The [address] [facility]'S Medical CenterComment on above:Performed By: #### CBC ####[facility] [address]az[address] [place] [address] KarenMonocytes (Bld) [#/Vol]0.9 103/ul Critically high0.3-0.8The St. [facility]'S Medical CenterComment on above:Performed By: #### CBC ####[facility] [address] [place] [address] KarenMonocytes/100 WBC (Bld)9.1 %Normal1.7-12.0The [facility] Comment on above:Performed By: #### CBC ####[facility] [address] [place] [address] KarenNeutrophils (Bld) [#/Vol]7.6 103/ulCritically high1.4-6.5The St. [facility]'S Medical CenterComment on above:Performed By: #### CBC ####[facility] [address] [place] [address] KarenNeutrophils/100 WBC (Bld)75.4 %Critically high43.0-75.0[facility] - TrumbullComment on above:Performed By: #### CBC ####[facility] Qftakaasot[address] [place] [address] KarenPlatelet mean volume (Bld) [Entitic vol]10.1 fLNormal9.5-13.5The St. [facility]'S Medical CenterComment on above:Performed By: #### CBC ####[facility] [address] [place] [address] KarenPlatelets (Bld) [#/Vol]200 103/ulNormal 150-450The St. Mary'S Medical CenterComment on above:Performed By: #### CBC ####[facility] [address]qkiz[address] [place] [address] KarenRBC (Bld) [#/Vol]3.78 106/ulCritically low4.20-5.40The St. [facility]'S Medical CenterComment on above:Performed By: #### CBC ####[facility] [address] [place] [address] KarenWBC (Bld) [#/Vol]10.1 103/ulNormal4.0-11.[address] [facility]S Medical CenterComment on above:Performed By: #### CBC ####[facility] [address] [place] [address] KarenDRUG SCREEN RAPID (URINE)on 41-74-3649PMAPndyholeTnikrtWBHAURUGGcw [facility] Comment on above:Performed By: #### DRUGRPD ####[facility] [address] [place] [address] KarenBARNegativeNormalNEGATIVESelect Medical Specialty Hospital - TrumbullComment on above:Performed By: #### DRUGRPD ####[facility] [address]ofx[address] KarenBUP NegativeNormalNEGATIVEThe Enterprise HospitalComment on above:Performed By: #### DRUGRPD ####[facility] [address] [place] [address] KarenBZONegativeNormalNEGATIVEThe Enterprise HospitalComment on above: Performed By: #### DRUGRPD ####[facility] Qswqjuabca439253 [place] [address] KarenCOCNegativeNormalNEGATIVEPromedica Defiance Regional Hospital HospitalComment on above:Performed By: #### DRUGRPD ####[facility] [address] [place] [address] KarenCUT-OFFSSEE BELOW NormalThe St. Mary'S Medical CenterComment on above:Result Comment: AMP (Amphetamine): 500ng/mL, BAR (Barbituates): 200 ng/mL, BZO (Benzodiazepines): 150 ng/mL, BUP (Buprenorphine): 10 ng/mL, JAYLA (Cocaine): 150 ng/mL, mAMP (Methamphetamine): 500 ng/mL, MTD (Methadone): 200 ng/mL, OPI (Opiates): 100 ng/mL or 2000 ng/mL, OXY (Oxycodone): 100 ng/mL, PCP (Phencyclidine): 25 ng/mL, PPX (Propoxyphene): 300 ng/mL, THC (Cannabinoids): 50 ng/mL, TCA (Trycyclic Antidepressants): 300 ng/mL Performed By: #### DRUGRPD ####[facility] [address] [place] [address] KarenDRUG CUT HEADERDRUG CLASS TEST SYSTEM CUT- OFF CONCENTRATIONS ARE FOLLOWS:NormalThe St. Mary'S Medical CenterComment on above: Performed By: #### DRUGRPD ####[facility] [address] [place] [address] KarenmAMPNegativeNormalNEGATIVESelect Medical Specialty Hospital - TrumbullComment on above:Performed By: #### DRUGRPD ####[facility] [address] [place] [address] KarenMTDNegativeNormal NEGATIVEPromedica Defiance [facility] Hospital HospitalComment on above:Performed By: #### DRUGRPD ####[facility] [address]fe[address] [place], [place] [address]Uokdfc KarenOPINegativeNormalNEGATIVEPromedica Defiance [facility] Hospital HospitalComment on above:Performed By: #### DRUGRPD ####[facility] [address]ovfbosv27[address] [place], [place] [address]Xxwmem KarenOXYNegativeNormalNEGATIVEPromedica [facility] HospitalComment on above:Performed By: #### DRUGRPD ####[facility] Xctitcqsk[address] [place], [place] [address]Ofyous KarenPCPNegativeNormalNEGATIVEPromedica Defiance [facility] Hospital HospitalComment on above:Performed By: #### DRUGRPD ####[facility] [address] [place], [place] [address]Gerken KarenPPXNegativeNormal NEGATIVEPromedica Defiance Regional Hospital HospitalComment on above:Performed By: #### DRUGRPD ####[facility] [address] [place] [address]Molspq KarenTCANegativeNormalNEGATIVEPromedica Def[facility] Hospital HospitalComment on above:Performed By: #### DRUGRPD ####[facility] [address] [place], [place] [address]Gerken KarenTHCNegativeNormalNEGATIVEPromedica Def[facility] Hospital HospitalComment on above:Performed By: #### DRUGRPD ####[facility] Mkxrfwgpea[address] [place], [place] [address]Gerken KarenTYPE AND SCREENon 77-84-5344QFWH AND SCREENNegativeNormalThe Enterprise HospitalComment on above:Performed By: #### TNS ####[facility] [address] [place] [address] KarenCOVID-19 PCRon 11-24-5298USUB-CoV-2, NAANot DetectedNormalNot DetectedSelect Medical Specialty Hospital - TrumbullComment on above:Result Comment: This nucleic acid amplification test was developed and its perfomance characteristics determined by [facility]. Nucleic acid amplification tests include PCR and [...] result in this assay.Performed By: #### CVDPCR ####[facility] Adrj[address] [place] [address] KarenCHLAMYDIA/GONOCOCCUS EMILE (SWAB/URINE/PAPon 07-43-6144Ayofmcwwf trachomatis, NAANegativeNormalNegativeSelect Medical Specialty Hospital - TrumbullComment on above:Performed By: #### CT/NGNA ####[address] KarenNeisseria gonorrhoeae, NAANegativeNormalNegativeSelect Medical Specialty Hospital - TrumbullComment on above:Performed By: #### CT/NGNA ####[facility] [address]qx[address] [place] [address] KarenGROUP B STREP CULTUREon 05-04-2020S. agalactiae Ag Ql (Unsp spec)Culture Observations: Negative for Group B StreptococcusNoalThe St. Mary'S Medical CenterComment on above: Performed By: #### GBSCX ####[facility] Errvsgpifo[address] [place] [address] KarenCBC AUTO DIFFon 99-62-7403Hsoonsazs (Bld) [#/Vol]0.0 103/ulNormal0.0-0.1The St. Mary'S Medical CenterComment on above:Performed By: #### CBC ####[facility] Raxjynkzfb[address] [place], [place] [address]Whfhsi KarenBasophils/100 WBC (Bld)0.4 %Normal0.2-2.0The [facility] Comment on above:Performed By: #### CBC ####[facility] [address] [place], [place] [address]Gerken KarenEosinophils (Bld) [#/Vol]0.1 103/ulNormal0.0-0.7The St. [facility]'S Medical CenterComment on above:Performed By: #### CBC ####[facility] [address]fe[address] [place], [place] [address]Gerken KarenEosinophils/100 WBC (Bld)1.0 %Normal0.9-7.0The [facility]. [facility]'S Medical CenterComment on above:Performed By: #### CBC ####[facility] Jubmuylv[address] [place] [address] KarenErythrocyte distribution width (RBC) [Ratio]13.1 %Usypgz34.0-15.0The St. [facility]'S Medical CenterComment on above:Performed By: #### CBC ####[facility] Gikwmxzqrv[address] [place] [address] KarenHematocrit (Bld) [Volume fraction]34.5 %Critically low36.0-48.[address] [facility]'S Medical CenterComment on above:Performed By: #### CBC ####[facility] Frbpdmujoj[address] [place], [place] [address]Gerken Erendira Hemoglobin (Bld) [Mass/Vol]11.6 g/dLCritically low12.0-16.0The [facility] Comment on above:Performed By: #### CBC ####[facility] S[address]fh[address] [place] [address] KarenIG #0.09 10e3/ulCritically high 0.00-0.03The St. [facility]'S Medical CenterComment on above:Performed By: #### CBC ####[facility] Rvlfyfewod[address] [place] [address] KarenIG %0.9 %Critically high0.0-0.5The St[facility]'S Medical CenterComment on above: Performed By: #### CBC ####[facility] Hfjzguvigx[address] KarenLymphocytes (Bld) [#/Vol]1.2 103/ulNormal 1.2-3.8The Enterprise HospitalComment on above:Performed By: #### CBC ####[facility] Tbdrvyyalz[address] [place] [address] Erendira Lymphocytes/100 WBC (Bld)12.1 %Critically low20.5-60.0The [facility] Comment on above:Performed By: #### CBC ####[facility] [address]asmbv[address] [place] [address] KarenMANUAL DIFF REQNONormalThe St. Mary'S Medical CenterComment on above:Performed By: #### CBC ####[facility] O[address]zujixnu[address] [place] [address] KarK[facility] (RBC) [Entitic mass]30.7 kxKkokxn09.7-34.0The Enterprise HospitalComment on above: Performed By: #### CBC ####[facility] Lrbaodkqhd[address] [place] [address] KarSt. Josephs [facility] Services (RBC) [Mass/Vol]33.6 g/dLNormal 29.9-35.2The [facility]S Medical CenterComment on above:Performed By: #### CBC ####[facility] Ps[address]xqraat[address] [place], [place] [address]V (RBC) [Entitic vol]91.3 eFZgyemr11.0-99.0The St. [facility]'S Medical CenterComment on above:Performed By: #### CBC ####[facility] Fawkvppenn[address] [place] [address] KarenMonocytes (Bld) [#/Vol]0.7 103/ulNormal 0.3-0.8The St. [facility]'S Medical CenterComment on above:Performed By: #### CBC ####[facility] Agajtagfdq[address] [place], [place] [address]ken Erendira Monocytes/100 WBC (Bld)6.8 %Normal1.7-12.0The [facility]'S Medical CenterComment on above: Performed By: #### CBC ####[facility] Ftkxyychol5329 [address] KarenNeutrophils (Bld) [#/Vol]7.8 103/ul Critically high1.4-6.5The St[facility]S Medical CenterComment on above:Performed By: #### CBC ####[facility] Ahhwjrlepj[address] [place], [place] [address]Gerken KarenNeutrophils/100 WBC (Bld)78.8 %Critically high43.0-75.0The [facility]S Medical CenterComment on above:Performed By: #### CBC ####[facility] [address]bwvzbbs[address] [place] [address] KarenPlatelet mean volume (Bld) [Entitic vol]10.0 fLNormal9.5-13.5The St. [facility]'S Medical CenterComment on above:Performed By: #### CBC ####[facility] Idajokumuy[address] [place] [address] KarenPlatelets (Bld) [#/Vol]163 103/ulNormal 150-450The [facility] Medical CenterComascension providence hospital on above:Performed By: #### CBC ####[facility] Trmtnisjee[address] [place] [address] KarenRBC (Bld) [#/Vol]3.78 106/ulCritically low4.20-5.40The [facility] on above:Performed By: #### CBC ####[facility] R[address]fjuvgq[address] [place] [address] KarenWBC (Bld) [#/Vol]9.9 103/ulNormal4.0-11.[address] [facility] CenterComascension providence hospital on above:Performed By: #### CBC ####[facility] K[address]vf[address] [place] [address] KarenGLUCOSE - 1HRon 90-80-9676Lvxygvw [Mass/Vol]121 mg/dLCritically qxau95-790Txd St. [facility]S Medical CenterComment on above:Performed By: #### GLU1HR ####[facility] L[address]auwvzfcy[address] Erendira CHLAMYDIA/GONOCOCCUS EMILE (SWAB/URINE/PAPon 76-40-7386Dvwiohsxi trachomatis, EMILE NegativeNormalNegativeThe St. [facility]'S Medical CenterComment on above:Performed By: #### CT/NGNA ####[facility] Whmbgtpjvz9718 [address] KarenNeisseria gonorrhoeae, NAANegativeNormalNegativeThe St. Mary'S Medical CenterComment on above:Performed By: #### CT/NGNA ####[facility] [address]nuz[address] [place] [address] KarenTRICHAMONAS VAGINALIS. NAAon 10-04-3335Jsdzs vag by NAANegativeNormalNegativeThe St. [facility]'S Medical CenterComment on above:Performed By: #### TRICHNA ####[facility] [address]fskkxr[address] [place] [address] KarenUS PREG ANATOMY SINGLEon 51-00-8275BW PREG ANATOMY SINGLEPROCEDURE: US PREG ANATOMY SINGLE, [...] Electronically authenticated by: LINDA CAICEDO Date: 2020-01-09 14:28[facility] ACOG PANEL 3: 21 to 29on 82-93-4040Plf Gdln ACOG Testing NoLakeHealth Beachwood Medical CenterComment on above:Performed By: #### ABORH #### [facility] [address] [place] [address] Helio GuenChlamydia, Nuc. Acid AmpPositiveAbnormalNegativeThe St. Mary'S Medical CenterComment on above:Result Comment: . Performed at: =GPerformed By: #### ABORH #### [facility] [address] [place], [place] [address] Helio KarenDIAGNOSIS:CommentKettering Health TroyComment on above:Result Comment: NEGATIVE FOR INTRAEPITHELIAL LESION OR MALIGNANCY. THIS SPECIMEN WAS RESCREENED PART OF OUR BOILER CLEANER PROGRAM. Performed at: WBPerformed By: #### ABORH #### [facility] [address] [place] [address] Helio KarenGonococcus, Nuc. Acid AmpNegativeNormalNegativeThe [facility] Comment on above:Result Comment: Performed at: =GPerformed By: #### ABORH #### [facility] [address] [place] [address] Helio KarenMethodology:CommentNoLakeHealth TriPoint Medical Center on above: Result Comment: This liquid based ThinPrep(R) pap test was screened with the use of an image guided system. Performed at: WBPerformed By: #### ABORH #### [facility] [address] [place] [address] Helio GuenNote:CommentNoLakeHealth TriPoint Medical Center on above:Result Comment: The Pap smear is a screening test designed to aid in the detection of premalignant and malignant conditions of the uterine cervix. It is not a diagnostic procedure and should not be used as the sole means of detecting cervical cancer. Both false-positive and false-negative reports do occur. . Performed at: WBPerformed By: #### ABORH #### [facility] [address] [place] [address] Helio KarenPerformed by:CommentMount Carmel Health System on above: Result Comment: Christal Taylor, Almond Roaster (ASCP) Performed at: WBPerformed By: #### ABORH #### [facility] [address] [place] [address] Helio KarenQC reviewed by:CommentMount Carmel Health System on above: Result Comment: Dora Stevens, Supervisory Almond Roaster (ASCP) Performed at: WBPerformed By: #### ABORH #### [facility] [address] [place] [address] Helio KarenReflex Criteria:[facility] [place] [facility] on above: Result Comment: The HPV DNA reflex criteria were not met with this specimen result therefore, no HPV testing was performed. . Performed at: WBPerformed By: #### ABORH #### [facility] [address] [place] [address] Helio KarenSpecimen adequacy:CommentKettering Health TroyComment on above:Result Comment: Satisfactory for evaluation. Endocervical and/or squamous metaplastic cells (endocervical component) are present. Performed at: WBPerformed By: #### ABORH #### [facility] [address] [place] [address] Helio Erendira[address]NormalThe [address] Mary'S Medical CenterComment on above:Result Comment: Performed at: WBPerformed By: #### ABORH #### [facility] [address] [place] [address] Helio KarenHGB(ELECTP) FRACTION PROFILEon 66-95-1150Rgihtupuwa (Bld) [Mass/Vol] 97.3 %Ytrrhh98.4-98.8The [facility]al Hospitalment on above:Performed By: #### ABORH #### [facility] [address] [place] [address] Helio KarenHgb A22.7 %Normal1.8-3.2The [facility]S Medical CenterComment on above: Performed By: #### ABORH #### [facility] [address] [place] [address] Helio KarenHgb C0.0 %Normal0.0The [facility]S Medical CenterComascension providence hospital on above:Performed By: #### ABORH #### [facility] [address] [place] [address] Helio KarenHgb F0.0 %Normal0.0-2.0The [facility]S Medical CenterComment on above: Performed By: #### ABORH #### [facility] [address] [place] [address] Helio KarenHgb S0.0 %Normal0.0The [facility]'S Medical CenterComment on above:Performed By: #### ABORH #### [facility] [address] [place] [address] Helio KarenHgb SolubilityNegativeNormalNegativeThe St. [facility]'S Medical CenterComment on above:Performed By: #### ABORH #### [facility] [address] [place] [address] Helio KarenHgb VariantKettering Health TroyComment on above:Performed By: #### ABORH #### [facility] [address] [place] [address]Inter[address] Mary HospitalComascension providence hospital on above: Result Comment: Normal adult hemoglobin present.Performed By: #### ABORH #### [facility] [address] [place] [address] Helio RodriguezEP B SURFACE ANTIGEN SCREENon 14-49-5447OSbQc ScreenNegativeNormal NegativeThe St. [facility]'S Medical CenterComment on above:Performed By: #### ABORH #### [facility] [address] [place] [address] Helio RodriguezEPATITIIS C VIRUS ANTIBODYon 81-95-3399Owg C Virus Ab<0.1Normal 0.0-0.9The [facility] Medical CenterComascension providence hospital on above:Result Comment: Negative: < 0.8 Indeterminate: 0.8 - 0.9 Positive: > 0.9 . The CDC recommends that a positive HCV antibody result be followed up with a HCV Nucleic Acid Amplification test (066510).Performed By: #### HCV #### [facility] [address] [place] [address] Helio GuLeightonIV 1 AND 2 WITH REFLEXon 87-29-9027JYP Screen 4th Generation wRfx Non ReactiveNormalNon ReactiveThe St. [facility]S Medical CenterComascension providence hospital on above:Performed By: #### ABORH #### [facility] [address] [place] [address] Helio GuenRPR QUANTon 01-32-1661Ekbum Plasma Reagin, QuantNon ReactiveNormal NonRea<1:1The St. [facility]S Medical CenterComment on above:Performed By: #### ABORH #### [facility] [address] [place] [address] Helio KrishnaRUBELLA AB IGGon 29-69-2451Hsltfuw Antibodies, IgG1.49 indexNormal Immune >0.99The [facility] on above:Result Comment: Non-immune <0.90 Equivocal 0.90 - 0.99 Immune >0.99Performed By: #### ABORH #### [facility] [address] [place] [address] Helio KarenVARICELLA IGG ABon 28-85-8657Bbsnfbngn Zoster IgG<135Critically low Immune >165The St. [facility]S Medical CenterComment on above:Result Comment: Negative <135 Equivocal 135 - 165 Positive >165 A positive result generally indicates exposure to the pathogen or administration of specific immunoglobulins, but it is not indication of active infection or stage of disease.Performed By: #### ABORH #### [facility] [address] [place] [address] Helio KarenCBC AUTO DIFFon 05-18-3689Ykxwqmfwj (Bld) [#/Vol]0.0 103/ulNormal 0.0-0.1The [facility] Medical CenterComment on above:Performed By: #### CBC #### [facility] [address] [place] [address] Helio KarenBasophils/100 WBC (Bld)0.3 %Normal0.2-2.0The [facility] Comment on above:Performed By: #### CBC #### [facility] [address] [place] [address] Helio KarenEosinophils (Bld) [#/Vol]0.1 103/ulNormal0.0-0.7The [facility]S Medical CenterComment on above:Performed By: #### CBC #### [facility] [address] [place] [address] Helio KarenEosinophils/100 WBC (Bld)0.8 %Critically low0.9-7.0The [facility]S Medical CenterComment on above:Performed By: #### CBC #### [facility] [address] [place] [address] Helio KarenErythrocyte distribution width (RBC) [Ratio]12.8 %Deffzl34.0-15.0The [facility]S Medical CenterComment on above:Performed By: #### CBC #### [facility] [address] [place] [address] Helio KarenHematocrit (Bld) [Volume fraction]36.9 %Tmekdr68.0-48.0The [facility] Medical CenterComment on above:Performed By: #### CBC #### [facility] [address] [place] [address] Helio KarenHemoglobin (Bld) [Mass/Vol]12.7 g/oFDadmra12.0-16.0The [facility] Medical CenterComment on above:Performed By: #### CBC #### [facility] [address] [place] [address] Helio KarenIG #0.05 10e3/ulCritically high0.00-0.03The St[facility]S Medical CenterComment on above:Performed By: #### CBC #### [facility] [address] [place] [address] Helio KarenIG %0.6 %Critically high0.0-0.5The [facility]S Medical CenterComment on above:Performed By: #### CBC #### [facility] [address] [place] [address] Helio KarenLymphocytes (Bld) [#/Vol]1.2 103/ulNormal1.2-3.8The [facility] Medical CenterComment on above:Performed By: #### CBC #### [facility] [address] [place] [address] Helio KarenLymphocytes/100 WBC (Bld)13.6 %Critically low20.5-60.0The [facility]S Medical CenterComment on above:Performed By: #### CBC #### [facility] [address] [place] [address] Helio KarenMANUAL DIFF REQNONormalThe St. [facility]'S Medical CenterComment on above: Performed By: #### CBC #### [facility] [address] [place] [address] Helio KarenMCH (RBC) [Entitic mass]30.0 rgHgychb21.7-34.0The [facility] Comment on above:Performed By: #### CBC #### [facility] [address] [place] [address] Helio KarenMCHC (RBC) [Mass/Vol]34.4 g/eCLynxpx70.9-35.2[facility] Comment on above:Performed By: #### CBC #### [facility] [address] [address] Helio KarenMCV (RBC) [Entitic vol]87.2 aTIozwpg29.0-99.0[facility] Comment on above:Performed By: #### CBC #### [facility] [address] [place] [address] Helio KarenMonocytes (Bld) [#/Vol]0.6 103/ulNormal0.3-0.8The [facility] Comment on above:Performed By: #### CBC #### [facility] [address] [place] [address] Helio KarenMonocytes/100 WBC (Bld)6.7 %Normal1.7-12.0[facility] Comment on above:Performed By: #### CBC #### [facility] [address] [place] [address] Helio KarenNeutrophils (Bld) [#/Vol]6.9 103/ulCritically high1.4-6.5The [facility] Medical CenterComment on above:Performed By: #### CBC #### [facility] [address] [place] [address] Helio KarenNeutrophils/100 WBC (Bld)78.0 %Critically high43.0-75.0[facility] - TrumbullComment on above:Performed By: #### CBC #### [facility] [address] [place] [address] Helio KarenPlatelet mean volume (Bld) [Entitic vol]9.8 fLNormal9.5-13.5The St. [facility]S Medical CenterComment on above:Performed By: #### CBC #### [facility] [address] [place] [address] Helio KarenPlatelets (Bld) [#/Vol]200 103/zvOvdcid805-662Bxw [facility] Comment on above:Performed By: #### CBC #### [facility] [address] [place] [address] Helio KarenRBC (Bld) [#/Vol]4.23 106/ulNormal4.20-5.40The [facility] Comment on above:Performed By: #### CBC #### [facility] [address] [place] [address] Helio KarenWBC (Bld) [#/Vol]8.8 103/ulNormal4.0-11.0The [facility] Comment on above:Performed By: #### CBC #### [facility] [address] [place] [address] Helio KarenCULTURE URINEon 80-83-0941SJDTQPY URINECulture Observations: No growthNormalThe St. [facility]'S Medical CenterComment on above:Performed By: #### ABORH #### [facility] [address] [place] [address] Helio KarenDRUG SCREEN RAPID (URINE)on 89-01-9881FQMUjcofafkWgcpkuWFSACJIIKcq [facility] HospitalComment on above:Performed By: #### DRUGRPD, UAMIC #### [facility] [address] [place] [address] Helio KarenBARNegativeNormalNEGATIVESelect Medical Specialty Hospital - TrumbullComment on above: Performed By: #### DRUGRPD, UAMIC #### [facility] [address] [place] [address] Helio KarenBUPNegativeNormalNEGATIVESelect Medical Specialty Hospital - TrumbullComment on above: Performed By: #### DRUGRPD, UAMIC #### [facility] [address] [place] [address] Helio KarenBZONegativeNormalNEGATIVESelect Medical Specialty Hospital - TrumbullComment on above: Performed By: #### DRUGRPD, UAMIC #### [facility] [address] [place] [address] Helio KarenCOCNegativeNormalNEGATIVESelect Medical Specialty Hospital - TrumbullComment on above: Performed By: #### DRUGRPD, UAMIC #### [facility] [address] [place] [address] Helio KarenCUT-OFFSSEE [facility] Crille HospitalComment on above:Result Comment: AMP (Amphetamine): 500ng/mL, BAR (Barbituates): 200 ng/mL, BZO (Benzodiazepines): 150 ng/mL, BUP (Buprenorphine): 10 ng/mL, JAYLA (Cocaine): 150 ng/mL, mAMP (Methamphetamine): 500 ng/mL, MTD (Methadone): 200 ng/mL, OPI (Opiates): 100 ng/mL or 2000 ng/mL, OXY (Oxycodone): 100 ng/mL, PCP (Phencyclidine): 25 ng/mL, PPX (Propoxyphene): 300 ng/mL, THC (Cannabinoids): 50 ng/mL, TCA (Trycyclic Antidepressants): 300 ng/mLPerformed By: #### DRUGRPD, UAMIC #### [facility] [address] [place] [address] KarenDRUG CUT HEADERDRUG CLASS TEST SYSTEM CUT-OFF CONCENTRATIONS ARE FOLLOWS:NormalSelect Medical Specialty Hospital - TrumbullComment on above:Performed By: #### DRUGRPD, UAMIC #### [facility] [address] [place] [address] Helio KarenmAMPNegativeNormalNEGATIVESelect Medical Specialty Hospital - TrumbullComment on above: Performed By: #### DRUGRPD, UAMIC #### [facility] [address] [place] [address] Helio KarenMTDNegativeNormalNEGATIVESelect Medical Specialty Hospital - TrumbullComment on above: Performed By: #### DRUGRPD, UAMIC #### [facility] [address] [place] [address] Helio KarenOPINegativeNormalNEGATIVESelect Medical Specialty Hospital - TrumbullComment on above: Performed By: #### DRUGRPD, UAMIC #### [facility] [address] [place] [address] Helio KarenOXYNegativeNormalNEGATIVESelect Medical Specialty Hospital - TrumbullComment on above: Performed By: #### DRUGRPD, UAMIC #### [facility] [address] [place] [address] Helio KarenPCPNegativeNormalNEGATIVEKnox Community Hospital on above: Performed By: #### DRUGRPD, UAMIC #### [facility] [address] [place] [address] Helio KarenPPXNegativeColumbia Regional HospitalalNEGATIVEKnox Community Hospital on above: Performed By: #### DRUGRPD, UAMIC #### [facility] [address] [place] [address] Helio KarenTCANegativeNormalNEGATIVESelect Medical Specialty Hospital - TrumbullComasc[facility] on above: Performed By: #### DRUGRPD, UAMIC #### [facility] [address] [place] [address] Helio KarenTHCNegativeNormalNEGCleveland Clinic Union Hospital on above: Performed By: #### DRUGRPD, UAMIC #### [facility] [address] [place] [address] Helio KarenGLYCOHEMOGLOBIN A1Con 92-43-7335Ypddkoe [Mass/Vol]94 mg/dLKettering Health TroyComascension providence hospital on above:Performed By: #### A1C #### [facility] [address] [place] [address] Helio UjttoJdI3p (Bld) [Mass fraction]4.9 %Normal<=6.0[facility] Comment on above:Performed By: #### A1C #### [facility] [address] [place] [address] Helio KarenPREG QUANT HCGon 17-85-5220ZKB TXROF74478.00 mIU/mLNormalSelect Medical Specialty Hospital - TrumbullComment on above:Performed By: #### PREGQNT #### [facility] [address] [place] [address] Helio KarenHCG RANGESEE BELOWKettering Health TroyComment on above:Result Comment: 5-50 0-1 WEEK 40-300 1-2 WEEKS 100-1,000 2-3 WEEKS 500-6,000 3-4 WEEKS 5,000-200,000 1-2 MONTHS 10,000-100,000 2-3 MONTHS 3,000-50,000 2ND TRIMESTER 1,000-50,000 3RD TRIMESTERPerformed By: #### PREGQNT #### [facility] [address] [place] [address] Helio KarenTYPE AND SCREENon 41-99-5795OQLQ AND SCREENNegativeNormSt. Mary's Medical CenterComment on above:Performed By: #### TNS #### [facility] [address] [place] [address] Helio KarenUA RANDOM W/MICROSCOPICon 78-18-5574Kkfeekxq LM.HPF (Urine sed) [#/Area]TRACENormalNONE SEENSelect Medical Specialty Hospital - TrumbullComment on above:Performed By: #### DRUGRPD, UAMIC #### [facility] [address] [place] [address] Helio KarenBilirubin [Mass/Vol]NegativeNormalNEGATIVESelect Medical Specialty [facility] Comment on above:Performed By: #### DRUGRPD, UAMIC #### [facility] [address] [place] [address] Helio KarenBLOODNegativeNormalNEGATIVEPremier Health Miami Valley Hospitalment on above: Performed By: #### DRUGRPD, UAMIC #### [facility] [address] [place] [address] Helio KarenCASTNONE SEENNormalNONE [facility] HospitalCom[facility] providence hospital on above: Performed By: #### DRUGRPD, UAMIC #### [facility] [address] [place] [address] Helio KarenClarity (U)CLEARNormSt. Mary's Medical CenterComment on above: Performed By: #### DRUGRPD, UAMIC #### [facility] [address] [place] [address] Helio KarenColor (U)LT. YELLOWNormalYELLOWSelect Medical Specialty Hospital - TrumbullComment on above:Performed By: #### DRUGRPD, UAMIC #### [facility] [address] [place] [address] Helio KarenCrystals LM Nom (Urine sed)NONE SEENNormalNONE SEENSelect Medical Specialty Hospital - TrumbullComment on above:Performed By: #### DRUGRPD, UAMIC #### [facility] [address] [address] Helio KarenEpithelial cells LM.HPF (Urine sed) [#/Area]RARENoLakeHealth Beachwood Medical CenterComment on above:Performed By: #### DRUGRPD, UAMIC #### [facility] [address] [place] [address] Helio KarenGlucose [Mass/Vol]NegativeNormalNEGATIVESelect Medical Specialty Hospital - TrumbullComment on above:Performed By: #### DRUGRPD, UAMIC #### [facility] [address] [place] [address] Helio KarenKetones Ql (U)NegativeNormalNEGATIVESelect Medical Specialty Hospital - TrumbullComment on above:Performed By: #### DRUGRPD, UAMIC #### [facility] [address] [place] [address] Helio KarenMUCOUSNONE SEENNormalNONE SEENSelect Medical Specialty Hospital - TrumbullComment on above: Performed By: #### DRUGRPD, UAMIC #### [facility] [address] [place] [address] Helio KarenNitrite Ql (U)NegativeNormalNEGATIVESelect Medical Specialty Hospital - TrumbullComment on above:Performed By: #### DRUGRPD, UAMIC #### [facility] [address] [place] [address] Helio KarenpH (Bld)7.0Mclsyr8-4WbmSelect Medical Specialty Hospital - TrumbullComment on above:Performed By: #### DRUGRPD, UAMIC #### [facility] [address] [place] [address] Helio KarenProtein [Mass/Vol]NegativeNormSt. Mary's Medical CenterComment on above:Performed By: #### DRUGRPD, UAMIC #### [facility] [address] [place] [address] Helio KarenRBC (Bld) [#/Vol]NONE SEENNormal0-2The St. Mary'S Medical CenterComment on above:Performed By: #### DRUGRPD, UAMIC #### [facility] [address] [place] [address] Helio CrawleyPEC GRAVITY1.500Ybwhbs6.005-<=1.025The St. Mary'S Medical CenterComment on above:Performed By: #### DRUGRPD, UAMIC #### [facility] [address] [place] [address] Helio KarenUrobilinogen Qn (U)0.2 EU/dlNormalThe St. Mary'S Medical CenterComment on above:Performed By: #### DRUGRPD, UAMIC #### [facility] [address] [place] [address] Helio KarenWBC (Bld) [#/Vol]SMALLNormalNEGATIVEThe St. Mary'S Medical CenterComascension providence hospital on above:Performed By: #### DRUGRPD, UAMIC #### [facility] [address] [place] [address] Helio KarenWBC (Bld) [#/Vol]2-[address] Mary'S Medical CenterComment on above:Performed By: #### DRUGRPD, UAMIC #### [facility] [address] [place] [address] Helio KarenUS PREG <14 WKSon 98-85-3677LB PREG <14 WKSPatient: SANGEETHA MELGOZA Exam Date: 11/05/2019 : 1995 Gender:F Ordering : DR. RAMONA JIMÉNEZ . Admission #: [id number] Family : Order #: [id number] CLICK HERE TO VIEW EXAM RADIOLOGY REPORT [...] by: Frankie Hendrickson M.D. on 11/06/2019 at 14:27[facility] ABO AND RH TYPEon 39-13-4412DKW and Rh group Nom (Bld)ABO Rh Typing A Rh PositiveKettering Health TroyComment on above:Performed By: #### ABORH #### [facility] [address] [place] [address] Helio KarenPREG QUANT HCGon 36-10-1097OJS GAZIH78914.00 mIU/mLNBarberton Citizens HospitalComment on above:Result Comment: Verified by dilutionPerformed By: #### PREGQNT #### [facility] [address] [place] [address] Helio KarenHCG RANGESEE [facility] Crille HospitalComment on above:Result Comment: 5-50 0-1 WEEK 40-300 1-2 WEEKS 100-1,000 2-3 WEEKS 500-6,000 3-4 WEEKS 5,000-200,000 1-2 MONTHS 10,000-100,000 2-3 MONTHS 3,000-50,000 2ND TRIMESTER 1,000-50,000 3RD TRIMESTERPerformed By: #### PREGQNT #### [facility] [address] [place], [place] [id number] Helio Krishna Vital Signs Date TimeVital SignValuePerforming JkdutftrlTlulsqqq92-22-2398 14:15-0500Body mass index (BMI) [Ratio]36.21 kg/m2Sarita ROBERTO Work Phone: [facility] HospitalYqstsuroqh21-90-5338 14:15-0500Body eubbqq04.81 kgSarita ROBERTO Work Phone: [facility] HospitalXbpacdmuhw83-31-1060 14:15-0500Diastolic blood mwkureco76 mm[Hg]Sarita ROBERTO Work Phone: noThree Rivers HealthcareDhvwwnizmo32-85-2843 14:15-0500Systolic blood vkfvunmj395 mm[Hg]Sarita Xu PA Work Phone: [facility] HospitalIrjetdigid24-41-6543 10:08-0500Body mass index (BMI) [Ratio]36.03 kg/m2Amy Xu PA Work Phone: [facility] HospitalVbihutcvmr71-32-5801 10:08-0500Body whkele20.36 kgAmy Xu PA Work Phone: [facility] HospitalCgjljfxkfv27-18-9666 10:08-0500Diastolic blood yxbdxqjp28 mm[Hg]Sarita Ballard PA Work Phone: [facility] HospitalSyipfnqvyy79-58-2543 10:08-0500Systolic blood shbkecfh036 mm[Hg]Sarita Ballard PA Work Phone: [phone] [place], [place] [address]Kjpzwsbvrw20-53-5477 09:24-0400Body mass index (BMI) [Ratio]35.48 kg/i9Lchtb Bethany DO Work Phone: [phone] [place], [place] [address]Fwdxycmsst50-25-9392 09:24-0400Body mrtavb40 kg Bridger Bethany DO Work Phone: 1(969)702-[address] [place], [place] [address]Dtgunvmjbn41-74-8354 09:24-0400Diastolic blood bxcuzikr64 mm[Hg]Bridger Bethany DO Work Phone: [phone] [place], [place] [address]Qcigrazedn33-13-6439 09:24-0400Systolic blood qvbocdpv601 mm[Hg]Bridger Bethany DO Work Phone: [phone] [place], [place] [address]Tfvuwngteb17-67-5677 09:46-0400Body mass index (BMI) [Ratio]35.57 kg/m2Amy Xu PA Work Phone: [phone] [place], [place] [address]Nejjcweulu31-83-2974 09:46-0400Body vnsxto09.22 kgSarita Xu PA Work Phone: [phone])962-[address] [place], [place] [address]Qgnrhuyxor79-07-7192 09:46-0400Diastolic blood ydnxzour92 mm[Hg]Sarita Ballard PA Work Phone: [phone]-[facility] CenterAng[facility] [address]Ldeqzwxokd34-29-4839 09:46-0400Systolic blood xsbjsubu477 mm[Hg]Sarita Ballard PA Work Phone: [phone]-[facility] CenterColumbia Regional HospitalPzwqzpdzff58-24-4262 08:44-0400Body mass index (BMI) [Ratio]34.9 kg/c8ItwglovnCarmela Little DIRECTOR OF STRATEGIC SOURCING Work Phone: [facility] HospitalZucxqhwdoc51-00-8594 08:44-0400Body vtgnri75.55 kgCarmela Little DIRECTOR OF STRATEGIC SOURCING Work Phone: [facility] HospitalDmnqojqqmv02-45-0004 08:44-0400Diastolic blood mntekerk23 mm[Hg]Carmela Little DIRECTOR OF STRATEGIC SOURCING Work Phone: [phone] [place], [place] [address]Tzabuwljqa16-72-9541 08:44-0400Systolic blood ejylnrwo289 mm[Hg]Carmela Little DIRECTOR OF STRATEGIC SOURCING Work Phone: [facility] HospitalDoskwaogcp99-30-3887 10:23-0400Body mass index (BMI) [Ratio]34.82 kg/m5Kreea Bethany DO Work Phone: [facility] HospitalFecujevybc02-80-2979 10:23-0400Body nddfyy81.36 kgCorey Bethany DO Work Phone: [address] [address]Uwcckjrbqf99-99-0682 10:23-0400Diastolic blood xqnfuown05 mm[Hg]Bridger Bethany DO Work Phone: [address] [address]Npoectsdnr83-18-2732 10:23-0400Systolic blood mzbejdra569 mm[Hg]Bridger Bethany DO Work Phone: [facility] HospitalSmltgufkpe19-78-7832 08:57-0400Body mass index (BMI) [Ratio]34.17 kg/m2Sarita ROBERTO Work Phone: [address] [address]Llgezauahw40-28-5067 08:57-0400Body .73 kgSarita ROBERTO Work Phone: [address] [address]Denlgkifjc49-81-6895 08:57-0400Diastolic blood mm[Hg]Sarita ROBERTO Work Phone: [address] [address]Rpvcibvvtd58-79-7200 08:57-0400Systolic blood typbhmfv369 mm[Hg]Sarita Rhodesdale PA Work Phone: [facility] HospitalQqkqlgifrl36-47-1616 10:46-0400Body mass index (BMI) [Ratio]32.7 kg/m2Sarita Ballard PA Work Phone: [facility] HospitalBwdqwrilyw69-63-2208 10:46-0400Body yblkhu34.1 kg Sarita Xu PA Work Phone: [facility] HospitalUubldlryrh20-88-9690 10:46-0400Diastolic blood bthbgfup81 mm[Hg]Sarita Lozanoey PA Work Phone: [facility] HospitalUjqbsiwner63-46-1445 10:46-0400Systolic blood mm[Hg]Sarita Lozanoey PA Work Phone: [facility] HospitalItieiajuch09-74-2080 10:24-0400Body mass index (BMI) [Ratio]32.58 kg/t4Ghstk Bethany DO Work Phone: [facility] HospitalLzctuipljh90-69-7915 10:24-0400Body .8 kg Bridger Bethany DO Work Phone: [facility] HospitalHbohpvtbzs63-94-5322 10:24-0400Diastolic blood mm[Hg]Bridger Bethany DO Work Phone: [facility] HospitalUufwxpoblp01-97-5814 10:24-0400Systolic blood mm[Hg]Bridger Bethany DO Work Phone: [facility] HospitalPzddywemml20-31-5528 10:16-0400Body vcltqa495.5 cmHaw[facility]05-30-2025 09:52-0400Body mass index (BMI) [Ratio] 31.64 kg/m2[facility]05-30-2025 09:52-0400Body .47 kgHawthorn Children's Psychiatric Hospital05-30-2025 09:52-0400Diastolic blood mm[Hg][facility]05-30-2025 09:52-0400Systolic blood hgiruofy861 mm[Hg][facility]12-28-2024 18:18-0500Body xrcpjmprqxe45.9 [degF]Evangelist Jenkins MD Work Phone: [facility]12-28-2024 18:18-0500Diastolic blood eooqsocz98 mm[Hg]Evangelist Jenkins MD Work Phone: [facility]12-28-2024 18:18-0500Systolic blood vedselpv643 mm[Hg]Evangelist Jenkins MD Work Phone: [facility]12-28-2024 18:17-0500Body mass index (BMI) [Ratio]32.92 kg/q9Ishnvestrellita Jenkins MD Work Phone: [facility]12-28-2024 18:17-0500Body .65 kgThestrellita Jenkins MD Work Phone: [facility]12-28-2024 18:17-0500Heart rate78 /minEvangelist Jenkins MD Work Phone: [facility]12-28-2024 18:17-0500 Respiratory rate16 /minEvangelist Jenkins MD Work Phone: [facility]12-28-2024 18:17-6195SvU5% (BldA) [Mass fraction]98 %Evangelist Jenkins MD Work Phone: [facility]09-24-2024 09:10-0400Body ctcdru66.73 kgCorey Bethany DO Work Phone: [facility] HospitalGjvgwclrcs69-23-3470 09:10-0400Diastolic blood bffkkodu67 mm[Hg]Bridger Bethany DO Work Phone: [address] [address]Pszhqfnsme59-34-4200 09:10-0400Systolic blood ohasysuj446 mm[Hg]Bridger Bethany DO Work Phone: NOThree Rivers HealthcareJlsnlrhrwj66-02-0413 10:10-0400Body tovntv89.73 kgSarita ROBERTO Work Phone: [address] [address]Kaftbhnovz10-32-6768 10:10-0400Diastolic blood mm[Hg]Sarita ROBERTO Work Phone: [facility] HospitalTyagksxkea41-90-1257 10:10-0400Systolic blood pjcuxzgy825 mm[Hg]Sarita ROBERTO Work Phone: [facility] HospitalLvhtneaxhg99-22-1398 10:47-0400Body hgtubd69 kg Bridger Bethany DO Work Phone: 1(830)[phone] [place], [place] [address]Odbpzssquw58-66-8362 10:47-0400Diastolic blood dgtttaei26 mm[Hg]Bridger Bethany DO Work Phone: 1(581)236-[address] [place], [place] [address]Kyhlewspnl30-94-4133 10:47-0400Systolic blood lhohhxuj157 mm[Hg]Bridger Bethany DO Work Phone: 1(859)746-[facility] CenterColumb[facility] HospitalBddvjrclls53-73-2212 08:40-0400Body rlyqov24.46 kgSarita ROBERTO Work Phone: [phone] CenterColumbia Regional HospitalCupunwmmaa45-59-8834 08:40-0400Diastolic blood yuhdfuiv16 mm[Hg]Sarita ROBERTO Work Phone: 1(231)688-[address] [place], [place] [address]Uyabuonvjv64-53-4711 08:40-0400Systolic blood rnnvwhgo733 mm[Hg]Sarita ROBERTO Work Phone: 1(595)477-[facility] HospitalIleijnysma45-07-5490 13:12-0500Body .5 [facility]01-09-2024 13:12-0500Body mass index (BMI) [Ratio]28.72 kg/m2[facility]01-09-2024 13:12-0500Body nchazg23.22 [facility]2024 13:12-0500Diastolic blood qbravglz24 mm[Hg][facility]01-09-2024 13:12-0500 Systolic blood oxbmvupc220 mm[Hg][facility] Encounters Encounter DateEncounter TypeCare ProviderFacilityStart: 07-27-2025 End: 62-34-7151Mkfvcf outpatient visit 15 minutesAmy Rhodesdale PARDEEP Work Phone: [facility] Von OBGYNComment on above:Third trimester ([facility]); 36 weeks gestation of ([facility])Start: 07-27-2025 End: 46-58-6068rlinfthhnfUOX XUNot AvailableStart: 07-27-2025 End: 92-80-3684Cldixk flowsheetSarita Ballard PA Work Phone: [facility] Von OBGYNStart: 07-27-2025 End: 44-26-7058Kxsjdx flowsheetSarita Ballard PA Work Phone: [facility] Von OBGYNStart: 07-20-2025 End: 97-34-0042Gyzqud kayleeheetSarita Ballard PA Work Phone: [facility] OBGYNStart: 07-20-2025 End: 09-41-8321Imawza flowsheetSarita Ballard PA Work Phone: [facility] OBGYNStart: 07-20-2025 End: 69-74-3943Jsflcttuh Result EncounterSarita Ballard PARDEEP Work Phone: noMS External Department UnsolicitedStart: 07-20-2025 End: 69-52-0313Zrsfbaoz Result EncounterCorey Bethany DO Work Phone: noMS External Department UnsolicitedStart: 07-20-2025 End: 58-13-6342Vsuihy outpatient visit 15 minutesSarita Ballard PARDEEP Work Phone: [facility] Enterprise OBGYNComment on above:Third trimester ([facility]); 35 weeks gestation of ([facility]); Screening examination for STIStart: 07-20-2025 End: 57-52-4328twppjfvntwTUA RAMEYNot AvailableStart: 07-13-2025 End: 57-76-5680Ayckbf flowsheetCorey Bethany DO Work Phone: [facility] OBGYNStart: 07-13-2025 End: 15-34-5670Zeqzyl flowsheetCorey Bethany DO Work Phone: [facility] OBGYNStart: 07-13-2025 End: 50-73-7068Olrujo outpatient visit 15 minutesCorey Bethany DO Work Phone: [facility] Enterprise OBGYNComment on above:Third trimester ([facility]); 34 weeks gestation of ([facility])Start: 07-13-2025 End: 64-52-0444dwqihvxjsjUQFXO FAZIONot AvailableStart: 06-30-2025 End: 29-10-9980Byreaf outpatient visit 15 minutesSarita ROBERTO Work Phone: [facility] Enterprise OBGYNComment on above:Third trimester ([facility]); 32 weeks gestation of ([facility])Start: 06-30-2025 End: 02-57-2721ueczhnsjdwCKN RAMEYNot AvailableStart: 06-15-2025 End: 03-91-6571Gfteyi Debra Little NP Work Phone: [facility] OBGYNStart: 06-15-2025 End: 77-82-7843Xoziyw Debra Little NP Work Phone: [facility] Von OBGYNStart: 06-15-2025 End: 25-04-5702Ioctgj outpatient visit 15 minutesCarmela Little NP Work Phone: [facility] Von OBGYNComment on above:30 weeks gestation of ([facility]); Third trimester ([facility]); Uterine synechiae; Low ironStart: 06-15-2025 End: 17-18-9949asgoqdpcfkLNJXDBON EBERLYNot AvailableStart: 06-05-2025 End: 59-48-7788Kzsnemqih Result EncounterCorey Bethany DO Work Phone: [facility] External Department UnsolicitedStart: 06-05-2025 End: 54-08-3607Fnuidwrbw Result EncounterCorey Bethany DO Work Phone: noms External Department UnsolicitedStart: 06-01-2025 End: 11-15-1378Opfvlecdd Result EncounterCorey Btehany DO Work Phone: noms External Department UnsolicitedStart: 06-01-2025 End: 33-42-4118Qkavhzomj Result EncounterCorey Bethany DO Work Phone: noms External Department UnsolicitedStart: 06-01-2025 End: 20-80-4427Kvpcla outpatient visit 15 minutesCorey Bethany DO Work Phone: [facility] Enterprise OBGYNComment on above:28 weeks gestation of ([facility]); Third trimester ([facility])Start: 06-01-2025 End: 52-41-6021kclrubobspJYCKK FAZIONot AvailableStart: 05-07-2025 End: 16-13-1317Grvegjyrv Result EncounterAmy Xu ROBERTO Work Phone: noms External Department UnsolicitedStart: 05-07-2025 End: 68-76-5736Hktlahvwj Result EncounterAmy Xu ROBERTO Work Phone: noms External Department UnsolicitedStart: 05-04-2025 End: 30-41-2035Gsyepb outpatient visit 15 minutesAmy Xu ROBERTO Work Phone: [facility] Von OBGYNComment on above:24 weeks gestation of ([facility]); Second trimester ([facility]); Diabetes mellitus screeningStart: 05-04-2025 End: 95-10-8983luaxehhncsFCP RAMEYNot AvailableStart: 04-06-2025 End: 37-96-7323Kmciid outpatient visit 15 minutesAmy Xu ROBERTO Work Phone: [facility] BCP OBComment on above:Second trimester ([facility]); 20 weeks gestation of ([facility])Start: 04-06-2025 End: 76-04-8952wxwpvupkleRGD RAMEYNot AvailableStart: 04-06-2025 End: 97-23-4361crjlyxbreoCSSZF FAZIONot AvailableStart: 03-03-2025 End: 14-19-6703Gteczm flowsheetCorey Bethany DO Work Phone: [facility] BCP OBStart: 03-03-2025 End: 31-00-0495Iyqqne flowsheetCorey Bethany DO Work Phone: [facility] BCP OBStart: 03-03-2025 End: 91-02-3244Upbrrubzh Result EncounterCorey Bethany DO Work Phone: [facility] External Department UnsolicitedStart: 03-03-2025 End: 90-35-0525Moutdtsh flow sheetCorey Bethany DO Work Phone: [facility] BCP OBComment on above:15 weeks gestation of ([facility]); Second trimester fetus ([facility]); Screening, , for anatomic survey ([facility])Start: 03-03-2025 End: 90-68-7792hbpcjxwjqyUFMMB FAZIONot AvailableStart: 03-02-2025 End: 80-27-5659Utsyzatou Result EncounterCorey Bethany DO Work Phone: [facility] External Department UnsolicitedStart: 03-02-2025 End: 81-75-4135Sstpsqaco Result EncounterCorey Bethany DO Work Phone: noms External Department UnsolicitedStart: 02-13-2025 End: 10-10-9635Gayvrj outpatient visit 5 minutesNoms Bcp Ob Bethany NurseNOMS BCP OBComment on above:GA: 62n3qNmped: 02-13-2025 End: 30-21-7144vuwfebooczQGJKY FAZIONot AvailableStart: 01-14-2025 End: 01-82-4146Wgkgmlysy Result EncounterCorey Bethany DO Work Phone: [facility] External Department UnsolicitedStart: 01-14-2025 End: 39-25-1930Nlbvxuhkm Result EncounterCorey Bethany DO Work Phone: noms External Department UnsolicitedStart: 01-14-2025 End: 31-76-2643kejrwvenfbKLB J CLEEMPUTKeenan Private Hospital HospitalStart: 01-14-2025 End: 70-80-9866Qdmapeevzq hospital visit by Angely Bedoya APRN - BREAKER OPERATOR Work Phone: [facility] LABStart: 09-13-2024 End: 50-17-3782Tfigqbhyd department patient visitEvangelist Jenkins MD Work Phone: [facility] Emergency DepartmentComment on above: Laceration of left middle finger without foreign body without damage to nail, initial encounter (Primary Dx)Start: 06-18-2024 End: 33-92-1731Iletzzncp Result EncounterCorey Bethany DO Work Phone: noms External Department UnsolicitedStart: 06-18-2024 End: 16-70-8804Mttxqtulu Result EncounterCorey Bethany DO Work Phone: noms External Department UnsolicitedStart: 06-17-2024 End: 53-25-8861Jyznismfn Result EncounterCorey Bethany DO Work Phone: noms External Department UnsolicitedStart: 06-17-2024 End: 61-93-2873Rkcycddgg Result EncounterCorey Bethany DO Work Phone: noms External Department UnsolicitedStart: 06-10-2024 End: 60-51-5346Xeuxxi flowsheetCorey Bethany DO Work Phone: noms BCP OBStart: 06-10-2024 End: 96-47-6379Aiysuo flowsheetCorey Bethany DO Work Phone: [facility] BCP OBStart: 06-10-2024 End: 68-70-9866Iurswn outpatient visit 15 minutesCorey Bethany DO Work Phone: noms BCP OBComment on above:Third trimester Start: 06-03-2024 End: 01-52-3578Urwkmb Devan ROBERTO Work Phone: [facility] BCP OBStart: 06-03-2024 End: 52-91-2514Tdojdn flowsheetAmy Xu PA Work Phone: [facility] BCP OBStart: 06-03-2024 End: 84-55-1300Voljdd outpatient visit 15 minutesAmy Xu PA Work Phone: [facility] BCP OBComment on above:Third trimester Start: 05-29-2024 End: 93-10-4040Irwphsyle Result EncounterAmy Xu ROBERTO Work Phone: [facility] External Department UnsolicitedStart: 05-29-2024 End: 82-03-0210Mtjsdeikf Result EncounterAmy Xu ROBERTO Work Phone: [facility] External Department UnsolicitedStart: 05-27-2024 End: 78-72-5896Brjeci flowsheetCorey Bethany DO Work Phone: [facility] BCP OBStart: 05-27-2024 End: 42-94-0955Gbloxj flowsheetCorey Bethany DO Work Phone: [facility] BCP OBStart: 05-27-2024 End: 57-06-9954Hmqioj outpatient visit 15 minutesCorey Bethany DO Work Phone: [facility] BCP OBComment on above:36 weeks gestation of ; Third trimester pregnancyStart: 05-13-2024 End: [id number] flowsheetAmy Xu ROBERTO Work Phone: [facility] OBStart: 05-13-2024 End: 29-38-7801Xbhldj flowsheetAmy Xu PA Work Phone: [facility] OBStart: 05-13-2024 End: 01-94-4813Zykuuv outpatient visit 15 minutesAmy Xu ROBERTO Work Phone: [facility] OBComment on above:Third trimester ; size inconsistent with datesStart: 04-29-2024 End: 51-00-4169Facypipio Result EncounterAmy Xu ROBERTO Work Phone: [facility] External Department UnsolicitedStart: 04-29-2024 End: 73-40-9658Pdwvvwncz Result EncounterAmy Xu ROBERTO Work Phone: [facility] External Department UnsolicitedStart: 01-28-2024 End: 02-43-0050Bdvxvsudm encounterAmy Aime [facility], [facility] US ImagingStart: 01-22-2024 End: 18-12-4571Czvnwvits Result EncounterCorey Bethany DO Work Phone: noms External Department UnsolicitedStart: 01-22-2024 End: 20-96-8880Mvgpnaywk Result EncounterCorey Bethany DO Work Phone: noms External Department UnsolicitedStart: 12-13-2023 End: 45-22-0610Zqswrvrvf Result EncounterCorey Bethany DO Work Phone: noms External Department UnsolicitedStart: 12-13-2023 End: 50-25-3913Hdwjsmlfu Result EncounterCorey Bethany DO Work Phone: noms External Department UnsolicitedStart: 09-25-2023 End: 03-67-1420wgnrmzgtrqCNR J [facility] Ambulatory PPGStart: 09-25-2023 End: 31-20-5388Ggdfwd outpatient new 30 minutesPws Ob MidwifeProMedica Women's Services - CyldeComment on above:Encounter for IUD removal (Primary Dx)Start: 05-21-2023 End: 98-26-9286Hgidehlacw hospital visit by physicianSarita Bedoya APRN - BREAKER OPERATOR Work Phone: mthz LaboratoryStart: 23-13-3199vhpdumddcrMap Jo Cleemput ENGINE MANAGER-CNPFacility:[facility] Hospitaltart: 04-16-2023 End: 16-74-3928sgminumjofTuo Jo Cleemput ENGINE MANAGER-CNPFacility:[facility] Start: 03-08-2023 End: 49-58-0288wgjcmkwvdzKah Jo Cleemput ENGINE MANAGER-CNPFacility:[facility] Start: 05-25-2020 End: 36-68-0519Hgpprcpowa and management of inpatientANDAMBER JIMÉNEZElocility:H1 Start: 05-18-2020 End: 90-39-1658Kajyngl encounter procedureANDAMBER JIMÉNEZElocility:E6Dtjjm: 05-03-2020 End: 05-30-7878Vzqowkw encounter procedureANDAMBER JIMÉNEZElocility:O9Lbwwm: 03-04-2020 End: 70-10-5691Eujwjrx encounter procedureANDTISkip Arturocility:M1Fdfos: 01-27-2020 End: 82-44-6900Zmvviru encounter procedureANDTISkip Arturocility:K2Cltzv: 01-09-2020 End: 63-46-0199Ngchgga encounter procedureANDRESkip Arturocility:C5Fmbrl: 12-26-2019 End: 29-15-2442Futwyyb encounter procedureANDAMBER Arturocility:M3Udlyj: 11-21-2019 End: 30-94-0695Xgjwvaw encounter procedureANDTISkip Arturocility:Y7Peunt: 11-21-2019 End: 42-59-0135Larnxop encounter procedureANDTISkip Arturocility:U5Tiuph: 11-05-2019 End: 81-01-5251Lagxnmb encounter procedureANDTISkip Arturocility:O5Bxydz: 10-28-2019 End: 38-12-8335Hflswhj encounter procedureANDTISkip Arturocility:E7Zfauq: 05-16-2016 End: 40-78-5984JpwdmiifopZdobbudodx Erickson NnoliFacility:ARM Procedures DateProcedureProcedure DetailPerforming ClinicianStart: 33-96-3297Hiicg dip stick/tablet rgnt non-auto w/o micrscpAwellington ROBERTO Work Phone: Start: 21-17-5945NHMBLWPRV VAGINITIS (HTRX)Bridger Bethanyreyes TREVÑIO Work Phone: Start: 06-45-1367Iapbh dip stick/tablet rgnt non-auto w/o micrscpAwellington ROBERTO Work Phone: Start: 77-65-9698ICEXSQGOPVFUdf Ramey PA Work Phone: Start: 79-83-5308UGSNTSEL IDENTIFICATIONSarita ROBERTO Work Phone: Start: 34-74-5720UWTWU GP B CULTURE+RFLXAmy Xu ROBERTO Work Phone: Start: 10-25-4753Nifpd dip stick/tablet rgnt non-auto w/o micrscpCorey Bethany DO Work Phone: Start: 88-86-5434Hdbkx dip stick/tablet rgnt non-auto w/o micrscpAmy Xu ROBEROT Work Phone: Start: 03-12-4211Njbcb dip stick/tablet rgnt non-auto w/o micrscpKristina Anabel DIRECTOR OF STRATEGIC SOURCING Work Phone: Start: 83-92-1524DDK FERRITINCorey Bethnay DO Work Phone: Start: 56-99-2364Zodrc dip stick/tablet rgnt non-auto w/o micrscpCorey Bethany DO Work Phone: Start: 98-20-0224NUZ CBC WITH AUTO DIFFCorey Bethany DO Work Phone: Start: 48-04-6019RCY CBC WITH AUTO DIFFAmy Xu ROBERTO Work Phone: Start: 31-47-9946Qyzqs dip stick/tablet rgnt non-auto w/o micrscpAmy Xu ROBERTO Work Phone: Start: 23-66-4236DLE, SERUM, OPEN SPINA BIFIDACorey Bethany DO Work Phone: Start: 87-99-8579Aggcl dip stick/tablet rgnt non-auto w/o micrscpCorey Bethany DO Work Phone: Start: 55-46-8358KLJ TESTCorey Bethany DO Work Phone: Start: 61-52-2209Slovu dip stick/tablet rgnt non-auto w/o micrscpCorey Bethany DO Work Phone: Start: 95-39-9335NWO HCG, QUANTITATIVECorey Bethany DO Work Phone: Start: 06-15-2654Zqeljcqnnrej chorionic quantitative Bridger Cholo Sims MD Work Phone: Start: 57-33-3172Kpzea fingr minimum 2 Marquis Jenkins MD Work Phone: Start: 82-86-9062HYC CBC WITH AUTO DIFFCorey Bethany DO Work Phone: Start: 03-82-7384HFRM CBC WITH PLATELET NO DIFFERENTIALCorey Bethany DO Work Phone: Start: 74-31-5778Mkwgw dip stick/tablet rgnt non-auto w/o micrscpCorey Bethany DO Work Phone: Start: 07-46-2194Zazzd dip stick/tablet rgnt non-auto w/o micrscpAmy Xu ROBERTO Work Phone: Start: 86-53-7543FA OB GROWTHSarita ROBERTO Work Phone: Start: 57-07-7022Xddsj dip stick/tablet rgnt non-auto w/o micrscpCorey Bethany DO Work Phone: Start: 60-03-8894Zehja dip stick/tablet rgnt non-auto w/o micrscpAmy Xu ROBERTO Work Phone: Start: 01-90-3644CJ OB GROWTHAmy Xu PA Work Phone: Start: 63-56-5232BH OB ANATOMYCorey Bethany DO Work Phone: Start: 14-08-0213OT OB CERVICAL LENGTHCorey Bethany DO Work Phone: Start: 89-14-5324JQ OB TRANSVAGINALCorey Bethany DO Work Phone: Start: 77-79-8915Xviqs/antitoxin assay tissue culture Sarita Bedoya ENGINE MANAGER - BREAKER OPERATOR Work Phone: Start: 39-20-7910Opctpafk of Products of Conception, External ApproachANDREA WESTFIRStart: 77-18-2852Aupebseh of Amniotic Fluid, Therapeutic from Products of Conception, Via Natural or Artificial OpeningANDREA WESTFIRStart: 85-18-6304Rffohfmnceik of Hormone into Female Reproductive, Via Natural or Artificial OpeningANDAMBER JIMÉNEZ Plan of Treatment DateCare ActivityDetailAuthorStart: 39-21-9131DRzX,Tdap and Td Vaccines (3 - Td or Tdap)DTaP,Tdap and Td Vaccines (3 - Td or Tdap)[facility] SystemStart: 09-57-8207ZBcP/Tdap/Td vaccine (3 - Td or Tdap)DTaP/Tdap/Td vaccine (3 - Td or Tdap)[facility]ITALStart: 07-27-2025 End: 46-65-8655Lsmslrk encounter procedureNOMS Enterprise OBGYNComment on above: ArrivedStart: 07-27-2025 End: 39-37-2474Gvbnzvl encounter /10/2025 8:50 AM EST Routine [facility] [address] [place], [id number] Sarita Ballard PA [address] [place] [address] NOMS Von OBGYNStart: 07-20-2025 End: 15-67-0230CUVXUJY, GROUP B STREP WITH SUSCEPTIBLITYCULTURE, GROUP B STREP WITH SUSCEPTIBLITY Lab Routine Third trimester ([facility]) Expected: 07/20/2025, Expires: 07/20/2026NOMS HealthcareComment on above:Expected: 07/20/2025, Expires: 07/20/2026Start: 07-20-2025 End: 92-11-6574Tmraucj encounter procedureNOMS Von OBGYNComment on above: ArrivedStart: 07-13-2025 End: 80-17-5851Irxfkgd encounter procedureNOMS Von OBGYNComment on above: ArrivedStart: 06-30-2025 End: 38-71-2921Ofvbcyskuzxf / ancillary services xelgtpniqx95/14/2025 9:00 AM EDT Ancillary Procedure [facility] [address] [place] [phone] [facility] Von OBGYNStart: 06-15-2025 End: 96-47-7765Sjjzzrs encounter procedureNOMS Von OBGYNComment on above: ArrivedStart: 06-01-2025 End: 30-66-6259Hqimiwk encounter yfonzcxne78/15/2025 10:20 AM EDT Routine [facility] [address] [place] [address] Bridger Sims DO [address] [place], [place] [id number] [facility]OM[facility] Von OBGYNStart: 06-01-2025 End: 22-10-3324Cmesbpmlkzkz / ancillary services onlxidohyv20/15/2025 9:30 AM EDT Ancillary Procedure [facility] [address] [place] [address] NOMS Von OBGYNStart: 05-04-2025 End: 98-75-7905TRK panel - Blood by Automated countCBC Lab Routine Diabetes mellitus screening Expected: 05/04/2025 (Approximate), Expires: 05/04/2026[facility] Work Phone: comment on above:Expected: 05/04/2025 (Approximate), Expires: 05/04/2026Start: 05-04-2025 End: 99-80-9236Zpbudjalsgn of glucose 1 hour after glucose challenge for glucose tolerance testGlucose tolerance, 1 hour Lab Routine Diabetes mellitus screening Expected: 05/04/2025 (Approximate), Expires: 05/04/2026NOIL HealthcareComment on above:Expected: 05/04/2025 (Approximate), Expires: 05/04/2026Start: 05-04-2025 End: 40-40-2836Othwhmn encounter egkzpzgwc01/18/2025 10:40 AM EDT Routine [facility] [address] [place] [phone] Sarita Ballard [place] [facility] [place] [address] NOMS BCP OBStart: 11-83-8144Bfulzfcko vaccinationFlu vaccine (Season Ended)[facility] HospitalStart: 04-06-2025 End: 14-44-3389Wrfnxrl encounter dmungdigt72/21/2025 10:30 AM EDT Routine [facility] [address] [place] [phone] Sarita Ballard PA [address] [place] [address] NOMS BCP OBStart: 04-06-2025 End: 85-35-9753Yaobnyojqsfq / ancillary services tvpppdfxta80/21/2025 9:30 AM EDT Ancillary Procedure [facility] [address] [place] [address] NOMS BCP OBStart: 03-03-2025 End: 82-27-2467Mxjub fetoprotein, maternalAlpha fetoprotein, maternal Lab Routine 15 weeks gestation of ([facility]) Second trimester fetus ([facility]) Expected: 03/03/2025 (Approximate), Expires: 06/03/2025[facility] Work Phone: comment on above:Expected: 03/03/2025 (Approximate), Expires: 06/03/2025Start: 03-03-2025 End: 93-14-4093LY for pregnancyUS OB 14+ weeks anatomy scan Imaging Routine Screening, , for anatomic survey ([facility]) Expected: 03/03/2025, Expires: 06/03/2025NOMS HealthcareComment on above:Expected: 03/03/2025, Expires: 06/03/2025Start: 03-03-2025 End: 01-73-9673Hnfuklm encounter procedureNOMS BCP OBComment on above:Arrived Start: 02-13-2025 End: 21-91-1646VAV/RhABO/Rh Lab Routine Missed menses , unspecified gestational age Expected: 02/13/2025 (Approximate), Expires: 02/13/2026NOMS HealthcareComment on above:Expected: 02/13/2025 (Approximate), Expires: 02/13/2026Start: 02-13-2025 End: 04-67-6296Ejjpq type and Indirect antibody screen panel - BloodType and screen Lab Routine Missed menses , unspecified gestational age Expected: 02/13/2025 (Approximate), Expires: 02/13/2026NOMS HealthcareComment on above:Expected: 02/13/2025 (Approximate), Expires: 02/13/2026Start: 02-13-2025 End: 04-38-9658Fkspn of abuse panel - Urine by Screen methodRapid drug screen, urine Lab Routine , unspecified gestational age Encounter for supervision of normal first in first trimester Expected: 02/13/2025 (Approximate), Expires: 02/13/2026NOMS HealthcareComment on above:Expected: 02/13/2025 (Approximate), Expires: 02/13/2026Start: 02-05-2025 End: 85-59-0331ZW Pelvis transvaginalUS OB transvaginal Imaging Routine Missed menses Expected: 02/05/2025, Expires: 05/08/2025[facility] Work Phone: comment on above:Expected: 02/05/2025, Expires: 05/08/2025Start: 59-25-8380Ofcpy BMI ScreeningAdult BMI ScreeningProKettering Memorial Hospitalca Health SystemStart: 59-83-4868Dmidkpp ScreeningTobacco ScreeningProKettering Memorial Hospitalca [facility] SystemStart: 06-10-2024 End: 00-78-4844Iklfgyk encounter procedureNOMS BCP OBComment on above:Arrived Start: 06-03-2024 End: 63-33-4235Ztgwiqh encounter procedureNOMS BCP OBComment on above:Arrived Start: 05-27-2024 End: 09-32-8888Zecas B DNA probe, amplificationStrep B DNA probe, amplification Lab Routine Third trimester Expected: 05/27/2024 (Approximate), Expires: 05/27/2025[facility] Work Phone: comment on above:Expected: 05/27/2024 (Approximate), Expires: 05/27/2025Start: 05-27-2024 End: 83-60-7761Brwifdt encounter procedureNOMS BCP OBComment on above:Arrived Start: 57-81-5216RVTSB-19 Vaccine ()COVID-19 Vaccine ( season)[facility] HospitalStart: 37-64-6695ZKTUV-19 Vaccine ()COVID-19 Vaccine ()[facility] Start: 45-49-3192Qwnopfyud vaccinationInfluenza VaccineSumma Health [facility] Start: 05-13-2024 End: 35-22-2378JN for pregnancyUS OB SCAN FOR GROWTH Imaging Routine size inconsistent with dates Expected: 05/13/2024(Approximate), Expires: 05/13/2025[facility] Work Phone: comment on above:Expected: 05/13/2024 (Approximate), Expires: 05/13/2025Start: 05-13-2024 End: 18-27-7762Zirywvg encounter xfeqcqujv70/27/2024 8:50 AM EDT Routine [facility] [address] [place] [phone] Sarita Ballard PA [address] [place] [address] ArrivedNOMS BCP OBComment on above: ArrivedStart: 70-44-1429Pdtmcvagd vaccinationFlu vaccine (#1)[facility] HospitalStart: 92-41-1574Dtgkjhzrb vaccinationInfluenza VaccineYadkin Valley Community Hospitaltart: 72-14-1457Snoholper vaccinationFlu vaccine (#1)[facility]ITALStart: 26-65-7760Hgwceysoq for malignant neoplasm of cervixPap smearCARILION ROANOKE COMMUNITY HOSPITALStart: 12-64-6750Uhgtyjtlq B vaccine (1 of 3 - 19+ 3-dose series)Hepatitis B vaccine (1 of 3 - 19+ 3-dose series)[facility] Start: 31-06-5986Kgrss BMI Follow Up PlanAdult BMI Follow Up PlanYadkin Valley Community Hospitaltart: 29-43-7009Lyncokfhu C screeningHepatitis C screenCARILION ROANOKE COMMUNITY HOSPITALStart: 37-04-2498HLU screeningHIV screenCARILION ROANOKE COMMUNITY [facility]ITAL Start: 58-60-6124Prpwbgsig vaccine (1 of 2 - 13+ 2-dose series)Varicella vaccine (1 of 2 - 13+ 2-dose series)[facility] Centerart: 32-71-4027Dvwoumhwpt ScreenDepression [facility] Centerart: 70-15-3313Ihjplhsiix ScreeningDepression ScreeningYadkin Valley Community Hospitaltart: 76-11-4501Ynonngids vaccine (1 of 2 - 2-dose childhood series)Varicella vaccine (1 of 2 - 2-dose childhood series)[facility]ITALStart: 67-45-3171IXTTV-19 Vaccine (#1) COVID-19 Vaccine (#1)[facility] HOSPITALBacteria identified in Urine by CultureUrine culture Microbiology Routine Missed menses Ordered: 02/13/2025[facility] HealthcareComment on above:Ordered: 5CBC W Auto Differential panel - BloodCBC and differential Lab Routine Missed menses , unspecified gestational age Ordered: 02/13/2025[facility] HealthcareComment on above:Ordered: 02/13/2025 End: 75-53-3396ERM W Auto Differential panel - BloodCBC and differential Lab Routine Low iron every 4 weeks for 2 Occurrences starting 06/15/2025 until 06/15/2026[facility] Healthcare Work Phone: comment on above:every 4 weeks for 2 Occurrences starting 06/15/2025 until 06/15/2026HLAMYDIA TRACHOMATIS (GENITO/STI)CHLAMYDIA TRACHOMATIS (GENITO/STI) Lab Routine Screening examination for STI Ordered: 07/20/2025[facility] HealthcareComment on above:Ordered: 07/20/2025 End: 96-76-6793Ptzknjeyblfolmxy Panel, MolecularB[facility] [employer] Work Phone: Comment on above:Once for 1 Occurrences starting 05/21/2023 until 05/21/2023Hemoglobin A1c/Hemoglobin.total in BloodHemoglobin A1c Lab Routine Missed menses , unspecified gestational age Ordered: 02/13/2025[facility] HealthcareComment on above:Ordered: 02/13/2025Hepatitis B virus surface Ag [Presence] in Serum or Plasma by ImmunoassayHepatitis B surface antigen Lab Routine Missed menses , unspecified gestational age Ordered : 02/13/2025[facility] HealthcareComment on above:Ordered: 02/13/2025Hepatitis C virus Ab [Presence] in Serum or Plasma by ImmunoassayHepatitis C antibody Lab Routine Missed menses , unspecified gestational age Ordered: 02/13/2025[facility] HealthcareComment on above:Ordered: 02/13/2025HIV-1/HIV-2 antigen/antibody combination immunoassayHIV-1 and HIV-2 antibodies Lab Routine Missed menses , unspecified gestational age Ordered: 02/13/2025[facility] HealthcareComment on above:Ordered: 02/13/2025Neisseria gonorrhoeae DNA [Presence] in Unspecified specimen by EMILE with probe detectionNeisseria gonorrhea DNA probe, direct Lab Routine Screening examination for STI Ordered: 07/20/2025[facility] HealthcareComment on above:Ordered: 07/20/2025 End: 05-21-2023O&P PANEL (TRAVEL ASSOCIATED) #1B[facility]ABETH HOSPITALComment on above:Once for 1 Occurrences starting 05/21/2023 until 05/21/2023Reagin Ab [Presence] in Serum by RPRRPR Lab Routine Missed menses , unspecified gestational age Ordered: 02/13/2025[facility] HealthcareComment on above:Ordered: 02/13/2025Rubella antibody, IgGRubella antibody, IgG Lab Routine Missed menses , unspecified gestational age Ordered: 02/13/2025[facility] HealthcareComment on above:Ordered: 02/13/2025SURESWAB(R) ADVANCED VAGINITIS PLUS, TMASURESWAB(R) ADVANCED VAGINITIS PLUS, TMA Pathology and Cytology Routine Screening examination for STI Ordered: 07/20/2025[facility] [employer] Work Phone: comment on above:Ordered: 07/20/2025US Pelvis transvaginalUS OB transvaginal Imaging Routine Missed menses 02/13/2025 9:[facility] Immunizations Immunization DateImmunizationNotesCare MfecyjqwOycehhmz85-03-9854czoocds toxoid, reduced diphtheria toxoid, and acellular pertussis vaccine, adsorbedPwsc [facility] Payers DatePayer CategoryPayerPolicy ID2023MedicaidMOLINALINA MEDICAID [facility] [place] [id number] 2023-Present [address] [place] [address] 90 [id number] 2023Medicaid (Managed Care)[place] [id number] 33-48-0197Hyhjjyb Health [id number] .1.671226.3.57[id number] .1.678922.3.579.[id number] .1.503947.3.57[id number] 2.16.840.1.813664.3.57[id number] 2.16.840.1.596869.3.579.2.65839-29-5678Xiioflt7846981 2.16.840.1.899985.3.579.2.95004-05-2846Rbgzsju6303110 2.16840.1.318512.3.57[id number] 2.16.840.1.196380.3.579.2.70523-91-0617Vwrsgkj9003409 2.840.1.883513.3.579.2.03072-28-8125Kjbldkf2012916 2.840.1.547493.3.579.2.56393-42-6937Uegckzt9985759 2.840.1.053005.3.579.2.7[id number] 2.840.1.910387.3.579.[id number] 2.840.1.545026.3.579.2.9[id number] 2.840.1.745099.3.579.2.51065-39-6383Kowqvcy352461733 2.840.1.381498.3.579.2.44940-42-9337Wbzyzac2788979 2.840.1.871508.3.579.2.049121-50-9066Psacyys99068096 2.16840.1.125027.3.579.[id number] 2.840.1.039044.3.579.2.91182-77-9788Rjquhjt25362783 2.16.840.1.340850.3.579.2.162340-85-5083Xobybqi60235505 2..840.1.439261.3.579.2.910437-33-0841Xncmbnz88106764 2.16.840.1.175952.3.579.2.451398-63-4687Iorqown53680849 2.840.1.465302.3.579.2.646773-77-1518Gmtzylj39304213 2.840.1.299267.3.579.2.152791-08-1306Tbhvhql35646326 2.840.1.194912.3.579.2.781978-07-0055Umbobjy37108028 2.840.1.140409.3.579.2.985203-36-0719Ogfjuvu84395182 2.840.1.894936.3.579.2.287508-43-6146Dqbqnif86018154 2.0.1.457428.3.579.2.855667-59-2386Rhgpvkv60862728 2.840.1.207170.3.579.2.599418-37-3102Gwkxyat56845794 2.840.1.555841.3.579.2.997933-03-2743Zofqrht52165433 2.840.1.238723.3.579.2.803295-96-1698Ynltspz65867749 2.840.1.999070.3.579.2.111430-02-4650Njliaqw7921365 2.840.1.989346.3.579.2.540029-88-2388Kdxdnqb7820541 2.840.1.029801.3.579.2.965921-53-9204Gnovgho794987252382 Social History DateTypeDetailFacilityStart: 09-23-2022 End: 63-69-9309Ewnkgim smoking status NHISNever smoked tobaccoCARILION ROANOKE COMMUNITY HOSPITALStart: 09-23-2022 End: 90-23-6562Rnbntmp use and exposureSmokeless tobacco non-userCARILION ROANOKE COMMUNITY HOSPITALStart: 32-72-2758Sml Assigned At BirthNot on fileCARILION ROANOKE COMMUNITY HOSPITALTobamer[facility] [place] smoking status NHISTobacco smoking consumption unknownJORDAN [facility] HealthcareStart: 81-89-5720LrydjfznwEMUN HealthcareStart: 09-23-2022 End: 36-65-7575Uquoao identityNot on [facility] HealthcareStart: 09-23-2022 End: 31-89-3512Ahrvrwv of Social functionHocking Valley Community Hospital SystemStart: 25-61-2580Owpf-Only, Retired: Physical AbuseDeniesHocking Valley Community Hospital SystemStart: 15-67-9680Hoyvmbp intakeEx-drinker (finding)[facility] SystemStart: 90-09-7397KdyCasubn (finding)[facility] Clinical Notes 09-25-2023 to 07-27-2025 Note Date & PfkuYjelMhpbwspv69-69-7412 History of Present illness Narrative* Cydney VitaleLEDA - 07/27/2025 2:20 PM EST Reason for Appointment: Patient ID: Sangeetha Melgoza is a 29 y.o. female who presents for Routine Visit Patient presents today for Return OB appointment. MEDICATIONS Current Outpatient Medications Medication Instructions Vit-Fe Fumarate-FA ( VITAMIN PO) Take by mouth ALLERGIES Allergies Allergen Reactions Latex Hives Hydrocortisone Hives Morphine Cortisone Rash PROBLEMS Active Ambulatory Problems Diagnosis Date Noted Missed menses 12/11/2023 15 weeks gestation of ([facility]) 03/03/2025 Second trimester fetus ([facility]) 03/03/2025 Resolved Ambulatory Problems Diagnosis Date [...] Appearance: Normal appearance. She is well-developed. Genitourinary: Right Adnexa: not tender and no mass present. Left Adnexa: not tender and no mass present. No cervical discharge. Breasts: Breasts are soft. Right: Normal. Left: Normal. HENT: Head: Normocephalic. Nose: Nose normal. Mouth/Throat: Mouth: Mucous membranes are moist. Cardiovascular: Rate and Rhythm: Normal rate and regular rhythm. Pulmonary: Effort: Pulmonary effort is normal. Breath sounds: Normal breath sounds. Abdominal: General: Bowel sounds are normal. There is no distension. Palpations: Abdomen is soft. Tenderness: There is no abdominal tenderness. There is no guarding or rebound. Musculoskeletal: General: No swelling. Normal range of motion. Cervical back: Normal range of motion. Right lower leg: No edema. Left lower leg: No edema. Neurological: General: No focal deficit present. Mental Status: She is alert and oriented to person, place, and time. Skin: General: Skin is warm and dry. Psychiatric: Mood and Affect: Mood normal. Behavior: Behavior normal. Vitals and nursing note reviewed. Exam conducted with a dental assistant teacher present. Vitals: Estimated body mass index is 36.21 kg/m as calculated from the following: Height as of 02/13/25: 5' 2 . Weight as of this encounter: 198 lb. BP: 118/74 Patient's last menstrual period was 11/12/2024. Assessment/Plan ICD-10-CM 1. Third trimester ([facility]) Z34.93 POCT urinalysis dipstick manually resulted 2. 36 weeks gestation of ([facility]) Z3A.36 Return OB: Patient presents today for a routine obstetrics appointment. Patient is currently 36w5d . Patient states she is doing well but has complaints of being tired due to current . Patient complains of having more vaginal pain than last week. Patient would like to be checked to see if shehas dilated more than last week. Pt states she was about 2 cm at last visit. Patient has verbalizesfrequent movement. labor precautions was discussed/given and patient was instructed to perform kick counts three times a day. GBS culture came back and patient tested POSITIVE for her GBS cx. Orders Placed This Encounter Procedures POCT urinalysis dipstick manually resulted Follow Up: Patient is to return to office in 1 week for routine OB appointment. Documented by Cydney Vitale MA on behalf of: PARDEEP Joaquin documented in this encounterColumb[facility] [id number] History of Present illness Narrative* PARDEEP Joaquin - 07/20/2025 9:50 AM EST Reason for Appointment: Patient ID: Sangeetha Melgoza is a 29 y.o. female who presents for Routine Visit Patient presents today for Return OB appointment. MEDICATIONS Current Outpatient Medications Medication Instructions Vit-Fe Fumarate-FA ( VITAMIN PO) Take by mouth ALLERGIES Allergies Allergen Reactions Latex Hives Hydrocortisone Hives Morphine Cortisone Rash PROBLEMS Active Ambulatory Problems Diagnosis Date Noted Missed menses 12/11/2023 15 weeks gestation of ([facility] [facility]) 03/03/2025 Second trimester fetus ([facility]) 03/03/2025 Resolved Ambulatory Problems Diagnosis Date [...] nursing note reviewed. Exam conducted with a dental assistant teacher present. Vitals: Estimated body mass index is 35.48 kg/m as calculated from the following: Height as of 02/13/25: 5' 2 . Weight as of 07/13/25: 194 lb. BP: Patient's last menstrual period was 11/12/2024. Assessment/Plan ICD-10-CM 1. Third trimester ([facility]) Z34.93 2. 35 weeks gestation of ([facility]) Z3A.35 3. Screening examination for STI Z11.3 [...] behalf of: PARDEEP Joaquin documented in this encounterColumbia Regional [id number] History of Present illness Narrative* Carmela Little [...] Missed menses 12/11/2023 15 weeks gestation of ([facility]) 03/03/2025 Second trimester fetus ([facility]) 03/03/2025 Resolved Ambulatory Problems Diagnosis Date [...] nursing note reviewed. Exam conducted with a dental assistant teacher present. Vitals: Estimated body mass index is 35.48 kg/m as calculated from the following: Height as of 25: 5' 2 . Weight as of this encounter: 194 lb. BP: 134/88 Patient's last menstrual period was 11/12/2024. Assessment/Plan ICD-10-CM 1. Third trimester ([facility]) Z34.93 2. 34 weeks gestation of ([facility]) Z3A.34 POCT urinalysis dipstick manually resulted [...] of: Bridger Sims DO documented in this encounterColumbia Regional [id number] History of Present illness Narrative* PARDEEP Joaquin [...] Missed menses 12/11/2023 15 weeks gestation of ([facility]) 03/03/2025 Second trimester fetus ([facility]) 03/03/2025 Resolved Ambulatory Problems Diagnosis Date [...] ASSESSMENT & PLAN ICD-10-CM 1. Third trimester ([facility]) Z34.93 POCT urinalysis dipstick manually resulted 2. 32 weeks gestation of ([facility]) Z3A.32 Return OB: Patient presents today for [...] surgical history on file. documented in this encounterColumbia Regional [id number] History of Present illness Narrative* Carmela Little NP - 06/15/2025 8:50 AM EDT Reason for [...] Missed menses 12/11/2023 15 weeks gestation of ([facility]) 03/03/2025 Second trimester fetus ([facility]) 03/03/2025 Resolved Ambulatory Problems Diagnosis Date [...] nursing note reviewed. Exam conducted with a dental assistant teacher present. Vitals: Estimated body mass index is 34.9 kg/m as calculated from the following: Height as of 02/13/25: 5' 2 . Weight as of this encounter: 190 lb 12.8 oz. BP: 120/70 Patient's last menstrual period was 11/12/2024. ASSESSMENT & PLAN ICD-10-CM 1. 30 weeks gestation of ([facility]) Z3A.30 POCT urinalysis dipstick manually resulted 2. Third trimester ([facility]) Z34.93 POCT urinalysis dipstick manually resulted 3. [...] of: Carmela Little NP documented in this encounterColumbia Regional [id number] History of Present illness Narrative* Bridger Sims [...] Missed menses 12/11/2023 15 weeks gestation of ([facility]) 03/03/2025 Second trimester fetus ([facility]) 03/03/2025 Resolved Ambulatory Problems Diagnosis Date [...] nursing note reviewed. Exam conducted with a dental assistant teacher present. Vitals: Estimated body mass index is 34.82 kg/m as calculated from the following: Height as of 02/13/25: 5' 2 . Weight as of this encounter: 190 lb 6.4 oz. BP: 104/72 Patient's last menstrual period was 11/12/2024. Assessment/Plan Encounter Diagnosis: ICD-10-CM 1. 28 weeks gestation of ([facility]) Z3A.28 Urine dip 2. Third trimester ([facility]) Z34.93 Urine dip Return OB: Patient [...] of: Bridger Sims DO documented in this encounterColumbia Regional [id number] History of Present illness Narrative* PARDEEP Joaquin [...] Missed menses 12/11/2023 15 weeks gestation of ([facility]) 03/03/2025 Second trimester fetus ([facility]) 03/03/2025 Resolved Ambulatory Problems Diagnosis Date [...] PLAN ICD-10-CM 1. 24 weeks gestation of ([facility]) Z3A.24 POCT urinalysis dipstick manually resulted 2. Second trimester ([facility]) Z34.92 POCT urinalysis dipstick manually resulted [...] behalf of: PARDEEP Joaquin documented in this encounterColumbia Regional [id number] History of Present illness Narrative* PARDEEP Joaquin [...] Missed menses 12/11/2023 15 weeks gestation of ([facility]) 03/03/2025 Second trimester fetus ([facility]) 03/03/2025 Resolved Ambulatory Problems Diagnosis Date [...] ASSESSMENT & PLAN ICD-10-CM 1. Second trimester ([facility] Z34.92 2. 20 weeks gestation of ([facility]) Z3A.20 Return OB: Patient presents today for a routine obstetrics appointment. Patient is currently 20w5d . Patient states she is doing well but has complaints of being tired due to current . Patient has verbalizes frequent movement. No orders of the defined types were placed in this encounter. Patient will be referred to [facility] for possible amniotic band found on US today Follow Up: Patient is to return to office in 4 week for routine OB appointment. Documented by PARDEEP Joaquin on behalf of: PARDEEP Joaquin documented in this encounterColumbia Regional [id number] History of Present illness Narrative* Erendira Martinez, MIRIAM - 03/03/2025 9:50 AM EDT Reason for [...] Missed menses 12/11/2023 15 weeks gestation of ([facility]) 03/03/2025 Second trimester fetus ([facility]) 03/03/2025 Resolved Ambulatory Problems Diagnosis Date [...] nursing note reviewed. Exam conducted with a dental assistant teacher present. Vitals: Estimated body mass index is 32.58 kg/m as calculated from the following: Height as of 25: 5' 2 . Weight as of this encounter: 178 lb 1.9 oz. BP: 112/64 No LMP recorded (lmp unknown). Patient is . ASSESSMENT & PLAN ICD-10-CM 1. 15 weeks gestation of ([facility]) Z3A.15 Alpha fetoprotein, maternal Alpha fetoprotein, maternal POCT urinalysis dipstick manually resulted 2. Second trimester fetus ([facility]) Z34.92 Alpha fetoprotein, maternal Alpha fetoprotein, maternal [...] or undercooked meat, [facility]. Patient has been consulted regarding any [...] of: Bridger Sims DO documented in this encounterColumbia Regional [id number] History of Present illness Narrative* Rosana Montague [...] or undercooked meat, and [facility]. Patient has also been advised to [...] by: Rosana Montague MA documented in this encounterColumbia Regional HospitalColqhzoiki01-53-5528 Hospital Discharge instructions* Discharge Instructions* Evangelist Jenkins [...] through Care Everywhere. * Hand Laceration: Stitches (Kyrgyz) [facility] History of Present illness Narrative* Erendira Martinez, HOOKER MACHINE TENDER - 06/10/2024 9:00 AM EDT Reason for [...] nursing note reviewed. Exam conducted with a dental assistant teacher present. Vitals: There is no height or [...] of: Bridger Sims DO documented in this encounterColumbia Regional [id number] History of Present illness Narrative* PARDEEP Joaquin [...] behalf of: PARDEEP Joaquin documented in this encounterColumbia Regional HospitalSwumzdhkdy63-46-7638 History of Present illness Narrative* Erendira Martniez LPN - 05/27/2024 11:10 AM EDT Reason [...] nursing note reviewed. Exam conducted with a dental assistant teacher present. Vitals: There is no height or [...] of: Bridger Sims DO documented in this encounterColumbia Regional HospitalKmfohwcnza11-74-2681 History of Present illness Narrative* PARDEEP Joaquin [...] behalf of: PARDEEP Joaquin documented in this encounterColumbia Regional HospitalLvksyltzhh10-30-0571 Miscellaneous Notes* Telephone Encounter - Sarita Salomon RDMS, FREDIST - 01/28/2024 1:46 PM EDT Called and spoke to nurse Jacqueline in Dr. Sims's office regarding order sent to [facility]. Order for EFW percentile at 6th percentile on ultrasound done at [facility]. Explained that they used 06/17/24 as the VANGIE on that ultrasound instead of the document VANGIE of 06/24/24. Office called [facility] and they are recalculating the report and sending an addendum. Order can be disregarded. [facility] Telephone encounter Note* Telephone Encounter - Sarita Salomon RDMS, RVT - 01/28/2024 1:46 PM EDT Called and spoke to nurse Jacqueline in Dr. Sims's office regarding order sent to [facility]. Order for EFW percentile at 6th percentile on ultrasound done at [facility]. Explained that they used 06/17/24 as the VANGIE on that ultrasound instead of the document VANGIE of 06/24/24. Office called [facility] and they are recalculating the report and sending an addendum. Order can be disregarded. [facility]01-09-[facility] History of Present illness Narrative* Bella Pagan, HOOKER MACHINE TENDER - 09/25/2023 1:15 PM EST IUD Removal [...] Loo APRN-CNP 09/25/23 1344 documented in this encounterHocking [facility] SystemEvaluation note* Diagnosis Third trimester state, incidental documented in this encounter [facility]* Diagnosis Third trimester state, incidental size inconsistent with dates documented in this encounter [facility]* Diagnosis 36 weeks gestation of Third trimester state, incidental documented in this encounter [facility]* Diagnosis Third trimester state, incidental documented in this encounter [facility] note* Diagnosis Laceration of left middle finger without foreign body without damage to nail, initial encounter- Primary [facility]* Diagnosis Encounter for IUD removal- Primary documented in this encounter [facility]* Diagnosis Missed menses , unspecified gestational age Encounter for supervision of normal first in first trimester documented in this encounter [facility] note* Diagnosis 15 weeks gestation of [...] note* Diagnosis Third trimester ([facility]) state, incidental 35 weeks gestation of ([facility]) Screening examination for STI documented [facility]* Diagnosis Third trimester ([facility]) state, incidental 36 weeks gestation of ([facility]) documented in this encounter [facility] HealthcareInstructions* Attachments The following attachments cannot be sent through Care Everywhere. * How to plan and prepare for a healthy (Kyrgyz) documented in this encounterHocking Valley [facility] SystemInstructionsNot on file documented in this encounterHocking [facility] Summary Purpose Family History No [...] section and content) DATE CREATED AUTHOR 03/13/2018 [facility] DATE CREATED AUTHOR AUTHOR'S ORGANIZ ATION 06/02/2020 [facility] DATE CREATED AUTHOR AUTHOR'S ORGANIZ ATION 04/26/2023 [facility] DATE CREATED AUTHOR AUTHOR'S ORGANIZ ATION 09/30/2023 [facility] DATE CREATED AUTHOR AUTHOR'S ORGANIZ ATION 01/15/2025 [facility] DATE CREATED AUTHOR AUTHOR'S ORGANIZ ATION 07/28/2025 [facility] EPIC Care Teams (unrecognized sec tion and content) Team MemberRelationshipSpecialtyStart DateEnd Date Sarita Bedoya, ENGINE MANAGER - BREAKER OPERATOR [address], [place] [id number] PCP - GeneralCertified Clinical Nurse Specialist04/16/23Team MemberRelationship SpecialtyStart DateEnd Date Sarita Bedoya ENGINE MANAGER - BREAKER OPERATOR [address] [place] [address] PCP - GeneralCertified Clinical Nurse Specialist04/16/23Team MemberRelationship SpecialtyStart DateEnd Date Sarita Bedoya, ENGINE MANAGER-IDENTITY ACCESS MANAGEMENT ARCHITECT [address] [address] PCP - GeneralNurse Practitioner05/05/21Team MemberRelationshipSpecialtyStart Date End Date Sarita Bedoya ENGINE MANAGER-IDENTITY ACCESS MANAGEMENT ARCHITECT [address] [address] PCP - GeneralNurse Practitioner05/05/21Team MemberRelationshipSpecialtyStart Date End Date Sarita Bedoya ENGINE MANAGER - BREAKER OPERATOR [address], [place] [id number] PCP - GeneralCertified Clinical Nurse Specialist04/16/23 Reason for Visit (unrecogniz ed section and content) ReasonCommentsRoutine VisitReasonCommentsLacerationLaceration to left middle finger from opening a can.ReasonCommentsContraceptionIUD RemovalReason CommentsAmenorrhea Scheduled Active and Recently Administ ered Medications (unrecognized section and content) Medication Order/ lidocaine PF 1 % injection 5 mL [...] BE BASED ON THE PRIMARY CLINICAL RECORDS. [facility] Shortlist [facility]. provides no warranty or guarantee of the accuracy or completeness of information in this document.
[2025-08-05] VITALS (28 sets, daily range): BP systolic 111–150; BP diastolic 59–84; PULSE 57–173; TEMP 36.4–36.6
[2025-08-05 00:46] LABS: Glucose Urine UA NEGATIVE (NEGATIVE)
[2025-08-05] MEDS: 0.9 % SODIUM CHLORIDE 1,000 ML 125 ML IV (08:36)
[2025-08-05] MEDS: AMPICILLIN SODIUM 2,000 MG in 0.9 % SODIUM CHLORIDE 100 ML 200 MG IV (08:37)
[2025-08-05 08:55] LABS: Hematocrit 28.8 % (36.0-48.0); Hemoglobin 8.9 g/dL (12.0-16.0); Mean Corpuscular HGB Conc 30.9 g/dL (29.9-35.2); Mean Corpuscular Hemoglobin 22.5 pg (26.7-34.0); Mean Corpuscular Volume 72.7 fL (81.0-99.0); Platelet Count 171 10^3/uL (150-450); Red Blood Count 3.96 10^6/uL (4.20-5.40); White Blood Count 10.2 10^3/uL (4.0-11.0)
[2025-08-05 09:03] LABS: Cannabinoid Screen Urine NEGATIVE (NEGATIVE); Methamphetamines Screen Urine NEGATIVE (NEGATIVE); Tricyclic Antidepressant Urine NEGATIVE (NEGATIVE)
[2025-08-05] MEDS: OXYTOCIN/0.9 % SODIUM CHLORIDE 10 UNITS/500 ML PLAST..BAG 6 UNIT IV (10:00)
[2025-08-05] MEDS: ROPIVACAINE HCL/PF 400 MG/200 ML PREMIX 6 MG EPIDURAL (11:34)
[2025-08-05] MEDS: 0.9 % SODIUM CHLORIDE 1,000 ML 1000 ML IV (11:41)
[2025-08-05] MEDS: AMPICILLIN SODIUM 1,000 MG in 0.9 % SODIUM CHLORIDE 50 ML 100 MG IV (11:45)
--- NOTE | 2025-08-05 12:28 | PM.OBPRCVD ---
Procedure Intrapartal events: None Induction method: none Delivery augmentation: rupture of membranes and pitocin Delivery monitor: external FHT and external uterine Route of delivery: Episiotomy Description: none L&D Laceration Description: none Estimated blood loss (mL): 200 Anesthesia type: Epidural Disposition: PACU Infant Delivery date: 08/05/25 Gender: male presentation: vertex Placental delivery description: Spontaneous cord description: 3 Vessels
[2025-08-06 01:00] VITALS: BP 116/56; PULSE 90; TEMP 36.8
[2025-08-06 06:19] LABS: Hematocrit 26.6 % (36.0-48.0); Hemoglobin 8.1 g/dL (12.0-16.0); Immature Granulocytes Abs Auto 0.08 10^3/uL (0.00-0.03); Immature Granulocytes Pct Auto 0.6 % (0.0-0.5); Lymphocytes Absolute Auto 1.2 10^3/uL (1.2-3.8); Mean Corpuscular HGB Conc 30.5 g/dL (29.9-35.2); Mean Corpuscular Hemoglobin 22.3 pg (26.7-34.0); Mean Corpuscular Volume 73.1 fL (81.0-99.0); Platelet Count 152 10^3/uL (150-450); Red Blood Count 3.64 10^6/uL (4.20-5.40); White Blood Count 13.1 10^3/uL (4.0-11.0)
[2025-08-06 08:40] VITALS: TEMP 36.8
[2025-08-06 08:41] VITALS: BP 119/71; PULSE 74
--- NOTE | 2025-08-06 09:18 | P.OBPN_ITS ---
OB - PN: Subj Subjective Patient comments: no complaints [place] status: doing well feeding status: exclusively Exam Constitutional Vital Signs, click to edit/add: Last Vital Signs Temp 98.2 F 08/06/25 01:00 Pulse 74 08/06/25 08:41 Resp 16 08/05/25 08:57 BP 119/71 08/06/25 08:41 O2 Del Method Room Air 08/06/25 00:30 Documenting provider has reviewed patient's vital signs: yes Common normals: no apparent distress General appearance: cooperative and comfortable Orientation/consciousness: Yes awake, Yes oriented to person, Yes oriented to place and Yes oriented to time HENMT Common normals: normocephalic Eye Common normals: EOMs intact bilaterally General eye: normal appearance of both eyes Neck & C-Spine Common normals: full ROM Lymph Lymphatic: no lymphadenopathy noted Chest Common normals: inspection of chest normal Respiratory Common normals: normal respiratory effort Effort & inspection: able to speak in complete sentences Auscultation: clear to auscultation bilaterally Cardio Common normals: regular rate and regular rhythm Rate: regular rate Rhythm: regular rhythm GI Common normals: non-tender Auscultation: normoactive bowel sounds Palpation: soft Common normals: no CVA tenderness Back & Pelvis Common normals: no CVA tenderness Extremity Common normals: normal to inspection Neuro Common normals: oriented x3 Sensorium/orientation: awake, alert, oriented to person, oriented to place and oriented to time Psych Common normals: mental status grossly normal, thought process normal, cooperative, affect normal, speech normal, activity/motor behavior normal, denies hallucinations, denies homicidal ideation and denies suicidal ideation Appearance: grossly normal Attitude: calm Activity/motor behavior: appropriate eye contact Results Labs Labs: Short CBC 08/06/25 Range/Units 06:04 WBC 13.1 H (4.0-11.0) 10^3/uL Hgb 8.1 L (12.0-16.0) g/dL Hct 26.6 L (36.0-48.0) % Plt Count 152 (150-450) 10^3/uL OB - PN: A/P Plan - Vaginal Delivery day: 1 Plan: discharge home Time Spent with Patient Time: Total time spent is greater than 50% in coordination of care (as documented) at patient's floor/unit and/or counseling patient: Total time spent with greater than 50% in coordination of care (as documented) at patient's floor/unit and/or counseling patient: less than 15 minutes
[2025-08-06 17:53] VITALS: BP 133/63; PULSE 71
[2025-08-06 17:55] VITALS: TEMP 36.6
== END 2025-08-06 18:45 | disposition home or self-care (01) | DRG 560 ==
PROVIDERS: Admitting Provider Obstetrics & Gynecology; Visit Provider Obstetrics & Gynecology
DX: O99.824 Streptococcus B carrier state complicating childbirth (principal); Z3A.38 38 weeks gestation of pregnancy; Z37.0 Single live birth
CPT/HCPCS: 36415; 59025; 59050; 59410; 80307; 81003; 85025; 85027; 86850; 86900; 86901; J0290; J2795